=== PATIENT | male | born 1950 | race Caucasian/White ===

== ENCOUNTER 2018-01-26 05:53 | Inpatient (IN) | payer MEDICARE, MEDICAID, SELFPAY ==
[2018-01-26] VITALS (13 sets, daily range): BP systolic 119–141; BP diastolic 82–104; PULSE 107–137; RESP 16–24; TEMP 36.3–37.2; O2SAT 94–97; BMI 31.7; BMI 31.8
--- NOTE | 2018-01-26 06:00 | EKG12_ITS ---
Test Reason : Blood Pressure : / mmHG Vent. Rate : 120 BPM Atrial Rate : 278 BPM P-R Int : 000 ms QRS Dur : 078 ms QT Int : 322 ms P-R-T Axes : 000 010 065 degrees QTc Int : 455 ms Atrial flutter with variable A-V block Abnormal ECG Confirmed by AURELIO MEJIA, ALBERTO ([id number]), editor continuity and script JENNIFER VOGT ([id number]) on 01/28/2018 2:54:03 PM Referred By: CELESTINA Confirmed By:ALBERTO CAREY MD
[2018-01-26] MEDS: 0.9% Normal Saline 1,000 ML 1000 ML IV ×2 (06:11)
[2018-01-26] MEDS: LORazepam 2 MG/ML Syringe IV (06:13)
[2018-01-26] MEDS: dilTIAZem 25 MG/5 ML Vial 10 MG IV BOLUS (06:16)
--- NOTE | 2018-01-26 06:25 | ED.VISSUMM ---
- ER Visit Summary Date of Service: 01/26/18 Chief Complaint: [] Alcoholism with detox request History of Present Illness: The patient is a 67 M [] is a chronic alcoholic. He has had multiple admissions for detox. He stated over the last 4 weeks she has been drinking 18 beers per day of a strong beer. He had 24 beers today. He feels shaky after he sleeps only for an hour or 2 and wakes up and drinks beer which helps calm his anxiousness and anxiety and shakes. This keeps him out of acute withdrawal. He has had frequent visits for similar. 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 He required intubation in October of last year. Patient states he would like to detox. He had mechanical fall yesterday and has been using Aleve for back soreness with good relief. This is not why he came today. Denies illegal drug use. Has history of atrial fibrillation and is supposed to be taking Cardizem. He is on no blood thinners. Physical Examination: Vital signs reviewed General: Appears weakened but able to transfer from wheelchair to caught. Head: Normocephalic atraumatic Eyes: Pupils equal round and reactive to light extraocular movements intact ENT: TMs clear no hemotympanum no trauma Neck: Nontender full range of motion Cardiovascular: Regular rate rhythm no murmurs normal S1-S2 Respiratory: No distress clear to auscultation bilaterally chest nontender Abdomen: Soft nontender nondistended normal bowel sounds no masses Back: Nontender no CVA tenderness Extremities: Nontender active range of motion ?4 extremities no trauma and positive shakiness of his hands Skin: Normal color no trauma Neuro alert oriented cranial nerves II through XII intact normal strength with shakiness Test Results: [] Emergency Department Course and Treatment: [] EKG shows atrial fibrillation at a rate of 120. Unchanged from prior. Patient given IV fluids Ativan and a dose of Cardizem. He has minor alcohol withdrawal and is requesting detox. He will be discussed with the hospitalist and likely admitted Treatment Plan: [] Disposition: [] Impression: [] Alcoholism with detox request Alcohol withdrawal Chronic atrial fibrillation with rapid ventricular response Lumbar back strain This note was generated with [employer] dictation software. It may contain incorrect words, spelling, and punctuation that were not noted in review of the chart prior to signing ED Disposition - Plan for ED Patient: Chief Complaint: ETOH Intox Referrals: Christian Us MD [Primary Care Provider] -
[2018-01-26 06:26] LABS: Absolute Lymphocyte Count 1.51 X10^3/ul (0.83-4.51); Absolute Neutrophil Count 5.5 X10^3/uL (2.0-7.7); Basophil# 0.04 X10^3/uL; Basophil% 0.4 % (0-1); Eosinophil# 0.07 X10^3/uL; Eosinophils% 0.8 % (0-5); Hemoglobin 14.9 g/dl (13.0-16.5); Lymphocyte # 1.51 X10^3/ul (4.0); Mean Corp Hgb Conc 34.7 g/gl (32-36); Mean Corpuscular Hgb 32.9 pg (27.0-32.0); Mean Corpuscular Volume 94.9 fL (80-94); Mean Platelet Vol. 10.4 fl (6.2-12.0); Monocyte# 1.72 X10^3/uL; Monocyte% 19.3 % (0-10); Neutrophil # 5.53 X10^3/uL (2.7-7.7); Neutrophil % 62.2 % (47-70); Platelet Count 186 K/mm3 (150-450); RBC Distribution Width CV 14.3 % (11.6-14.6); RBC Distribution Width SD 48.2 fl (35.1-43.9); Red Blood Count 4.53 M/mm3 (4.6-6.2); White Blood Count 8.9 K/mm3 (4.4-11.0)
[2018-01-26 06:29] LABS: Differential Indicated SCAN CRITERIA MET; POSITIVE COUNT NO; POSITIVE DIFFERENTIAL YES; POSITIVE MORPHOLOGY NO
[2018-01-26 06:31] LABS: AST(SGOT) 152 U/L (15-37); Alanine Aminotransfer ALT/SGPT 178 U/L (16-61); Albumin, Serum 3.7 g/dL (3.2-5.0); Alkaline Phosphatase 124 U/L (45-117); Anion Gap 15 (5-15); BUN 10 mg/dL (7-18); BUN/Creat Ratio 11.9 RATIO (10-20); Bilirubin, Direct 0.43 mg/dL (0.00-0.30); Calcium,Total 8.9 mg/dL (8.5-10.1); Chloride 99 mmol/L (98-107); Creatinine, Serum 0.84 mg/dL (0.70-1.30); EST Glomerular Filtration Rate 97 mL/min (>60); Est Glom Filt Rate - Afr Amer 117 mL/min (>60); Estimated Creatinine Clearance 84.17 ml/min; Globulin 4.6 g/dL (2.2-4.2); Glucose 92 mg/dL (74-106); Potassium 3.8 mmol/L (3.5-5.1); Protein, Total 8.3 g/dL (6.4-8.2); Sodium Level 134 mmol/L (136-145)
--- NOTE | 2018-01-26 07:04 | NURSING ---
DR OMALLEY FOR DR OSCAR
--- NOTE | 2018-01-26 07:13 | NURSING ---
DR OMALLEY IN ER
--- NOTE | 2018-01-26 07:32 | NURSING ---
208 ALCOHOL WITHDRAWAL JOHANA
--- NOTE | 2018-01-26 07:38 | PCM.HP.STD ---
Problem List (1) Alcohol withdrawal Status: Acute Qualifiers: Complication of substance-induced condition: uncomplicated Qualified Code(s): F10.230 - Alcohol dependence with withdrawal, uncomplicated History of Present Illness Date of Admission: 01/26/18 Chief Complaint: Alcohol withdrawal The patient is a 67 year old M is seen in the emergency room at [facility] with a chief complaint of alcohol withdrawal. Last time patient had anything to drink was approximately 4 AM this morning. Patient drinks approximately 1824 ounce iced beers per day. Patient has been hospitalized many times for alcohol detox and hepatic encephalopathy. Patient complains today of feeling jittery, having tremors, and having sweats. Patient also complains of muscle discomfort and lower back pain. Workup in the emergency room included labs that showed a normal white blood cell count, patient's liver enzymes were all elevated his AST is 152, his ALT was 178, his alkaline phosphatase was 124. Patient's ethanol level was 99. Patient was noted be in atrial fib which is a chronic rhythm for him, pulse rate was 116, blood pressure was 119/82. Patient will be admitted into the stabilization program at [facility], orders were entered using the templates, blood pressure medication may have to be adjusted due to his atrial fibrillation. Patient will be monitored on telemetry, I do not feel he needs IV at this time Past Medical History Past Medical History (Chronic Problems): Chronic Problems Atrial fibrillation, chronic (Chronic) Atrial flutter, paroxysmal (Chronic) Depression with anxiety (Chronic) Panic disorder (Chronic) HTN (hypertension) (Chronic) Chronic alcoholism (Chronic) Cardiomyopathy (Chronic) Global hypokinesis with a 40-45% ejection fraction Left atrial enlargement (Chronic) Overweight (Chronic) Allergies No Known Allergies Allergy (Verified 01/26/18 05:57) Home Medications: Ambulatory Orders Medication Instructions Recorded Folic Acid 1 mg PO DAILY@0800 #30 tab 04/07/17 Aspirin [Lo-Dose Aspirin EC] 81 mg PO DAILY 10/19/17 Diltiazem [Cardizem] 120 mg PO BID 01/26/18 Furosemide [Lasix] 20 mg PO DAILY 01/26/18 Lisinopril [Zestril] 10 mg PO DAILY 01/26/18 Tamsulosin HCl [Flomax] 0.4 mg PO DAILY@1730 01/26/18 Surgical History: cholecystectomy Psychiatric History: Anxiety, Depression Lives: Alone Smoking Status: Never smoker Tobacco Use: Non-smoker Alcohol: Heavy Drugs: None - *Family History Maternal History Items: Stroke Paternal History Items: Cancer - lung Review of Systems Constitutional: Denies: Anorexia, Chills, Fever, Night Sweats, Malaise, Weakness, Weight Change, Fatigue Eyes: Denies: Blurred vision, Cataracts, Conjunctivae Inflammation, Double vision, Drainage HEENT: Denies: Difficulty Hearing, Difficulty Swallowing, Dysphasia, Ear Pain, Eye Pain, Head Aches, Hearing Changes, Nasal bleeding, Nasal Congestion, Post Nasal Drip Cardiovascular: Denies: Chest Pain, Claudication, Chest Pressure, Chest Tightness, Edema, Heaviness, Orthopnea, Palpitations, Paroxysmal Noc. Dyspnea Respiratory: Denies: Cough, Hemoptysis, Pleuritic Pain, Shortness of Breath, Shortness of breath at rest, Shortness of breath upon exertion, Sputum production, Wheezing Gastrointestinal: Denies: Abdominal Pain, Constipation, Diarrhea, Hematemesis, Hematochezia, Nausea, Melena, Vomiting Genitourinary: Denies: Dysuria, Frequency, Hematuria, Hesitancy, Urgency Musculoskeletal: Reports: Back Pain. Denies: Foot Pain, Hand Pain, Joint Pain, Joint stiffness, Joint swelling, Joint Tenderness, Leg Pain, Neck Pain, Shoulder Pain Skin: Denies: Dryness, Jaundice, Pruritis, Rash Neurological: Denies: Balance problems, Blurred vision, Double vision, Slurred speech, Difficulty swallowing, Focal weakness, Numbness, Tingling Psychiatric: Reports: Anxiety. Denies: Depression, Homicidal Ideations, Suicidal Ideations Endocrine: Denies: Change in Body Habitus, Heat/ Cold Intolerance, Polydipsia, Polyuria Hematologic/ Lymphatic: Denies: Adenopathy, Anemia, Easy Bruising, Easy Bleeding, Petechiae, Purpura VTE Information - Inpt Only VTE Present on Admission: No VTE Mechan Device Prophylaxis: None VTE Pharm Prophylaxis ordered?: Yes - Physical Exam General: Alert, Oriented x3, Cooperative, No apparent distress, Well developed, - - anxious HEENT: Atraumatic, PERRLA, EOMI, Normocephalic Oral: Moist Mucosa Neck: Supple, No JVD, Negative Carotid Bruits, No Nuchal Rigidity, Trachea Midline, Thyroid Normal Size and Texture Lungs: Clear to auscultation, Normal air movement, No rhonchi, No wheeze, No rales Cardiovascular: Regular Rhythm, No murmurs, PMI Normal, Irregular Rate, No rub noted Abdomen: Bowel Sounds Present, Soft, Non Tender, Non-Distended, Obese, No hernias noted Extremities: No clubbing, No cyanosis, No edema, Capillary Refill Less than 3 Seconds Skin: No rashes, No breakdown Musculoskeletal: No Tenderness to Palpation of Joints or Extremities Neurological: Cranial nerves II-XII grossly intact, Neuro grossly intact, Muscle tone normal, Sensory exam intact to light touch and pain, Coordination normal Psych/Mental Status: Appropriate, Anxious, Restless Vital Signs Temp Pulse Resp BP Pulse Ox 97.4 F L 116 H 24 H 119/82 H 96 01/26/18 05:54 01/26/18 06:19 01/26/18 06:19 01/26/18 06:19 01/26/18 06:19 Assessment/Plan #1 acute alcohol withdrawal-patient will be admitted into the medical stabilization program on [facility], due to his atrial fibrillation, patient will be monitored on telemetry, I do not feel he needs IV fluids #2 chronic alcoholism #3 chronic atrial fibrillation- patient's Cardizem will be changed to Cardizem CD 300 one daily for rate control #4 hypertension #5 Alcoholic hepatitis-liver functions will be rechecked tomorrow #6 cardiomyopathy probably secondary to rate dependent cardiomyopathy-patient has a past history of cardiomyopathy, echocardiogram in April 2017 showed an EF of 40-45%. Code Visit Inpatient E&M: 37660 Init Hosp L3
[2018-01-26 08:48] LABS: Prothrombin Time (Protime)PT. 13.1 SECONDS (11.7-14.9)
[2018-01-26] MEDS: Methocarbamol 750 MG Tablet PO ×2 (09:12→20:07)
[2018-01-26] MEDS: Metoprolol Tartrate 25 MG Tablet PO ×2 (09:12→22:48)
[2018-01-26] MEDS: chlordiazePOXIDE 25 MG Capsule PO ×3 (09:13→20:07)
[2018-01-26] MEDS: Ibuprofen 600 MG Tablet PO ×2 (09:13→20:06)
[2018-01-26] MEDS: Folic Acid 1 MG Tablet PO (09:13)
[2018-01-26] MEDS: Lisinopril 10 MG Tablet PO (09:13)
[2018-01-26] MEDS: Multivitamins,Ther W-Minerals Tablet 1 TABLET PO (10:01)
[2018-01-26] MEDS: Thiamine Hydrochloride 100 MG Tablet PO (10:01)
[2018-01-26] MEDS: dilTIAZem CD 300 MG Capsule PO (10:02)
[2018-01-26] MEDS: Furosemide 20 MG Tablet PO (10:03)
[2018-01-26] MEDS: LORazepam 1 MG Tablet 2 MG PO ×5 (10:03→18:55)
[2018-01-26 12:33] LABS: Amphetamine Urine VISTA NEGATIVE (<1000 ng/mL); Barbiturate Urine VISTA NEGATIVE (< 200 ng/mL); Benzodiazepine Urine VISTA NEGATIVE (< 200 ng/mL); Cocaine Urine VISTA NEGATIVE (< 300 ng/mL); Ecstacy Urine VISTA NEGATIVE (< 500 ng/mL); Methadone Urine VISTA NEGATIVE (< 300 ng/mL); PCP Urine VISTA NEGATIVE (< 25 ng/mL); THC Urine VISTA NEGATIVE (< 50 ng/mL); Vista UDS pH Range 5
--- NOTE | 2018-01-26 15:20 | CHAPLAIN ---
Type of Pastoral Visit _x__ Initial Visit ___ Follow-up Visit ___ On-call Visit ___ General Patient Visit ___ Spiritual Assessment ___ Family Conference ___ Bereavement ___ Rapid Response ___ Code Blue ___ Other (describe below) Pastoral Care Referral From _x__ Patient ___ Family ___ Nurse ___ Physician ___ Footwear Sales Representative ___ Regional Transportation Manager ___ Other (describe below) Sacrament/Intervention _x__ Active listening ___ Anointing ___ Hoahaoism ___ Bereavement ___ Communion ___ Yaneth exploration ___ _x__ Life review ___ Prayer ___ Reconciliation ___ Sacrament of Sick _x__ Supportive presence ___ Wedding ___ Other (describe below) Pastoral Comments patient declares that he wants to be sober again; pt says that he has had history of 40 years with alcoholism but has had long and significant years of sobriety and purposeful work; pt said his greatest source of staying sober was his former ; pt is now single and has lost contact with some of his social support; pt says he is not a yarsani person and does not seek spiritual help at this time; pt expressed thanks for presence of strap stitcher and time to talk
--- NOTE | 2018-01-26 16:32 | CCHN_ITS ---
Hospitalist Note This afternoon I was notified by nursing the patient has refused any efforts to enroll in outpatient follow-up for his alcohol problem. Patient was given several options by the [facility] coordinator and he refused all help. I asked the patient what he expected out of this hospitalization-he stated he wanted to stay here for a couple of days and that he would not drink when he went home. I told him I did not believe that he was telling me the truth and I continued to emphasize that he must follow-up with an outpatient alcohol detox program. This went on deaf ears as he refused to agree to this. My plan is to assure that he is out of danger as far as DTs are concerned and he will be discharged home. Patient has not seen his family physician in almost a year, I do not believe the patient is sincere on his wish to stop drinking.
[2018-01-26] MEDS: Tamsulosin HCl 0.4 MG Capsule PO (18:55)
[2018-01-27] VITALS (13 sets, daily range): BP systolic 106–129; BP diastolic 65–94; PULSE 100–141; RESP 16–18; TEMP 36.6–37.1; O2SAT 93–97
[2018-01-27] MEDS: chlordiazePOXIDE 25 MG Capsule PO ×3 (02:12→17:59)
[2018-01-27] MEDS: Methocarbamol 750 MG Tablet PO ×2 (02:20→17:59)
[2018-01-27 06:40] LABS: ALB/GLOB Ratio 0.7 RATIO (0.9-2.4); AST(SGOT) 62 U/L (15-37); Alanine Aminotransfer ALT/SGPT 108 U/L (16-61); Albumin, Serum 2.8 g/dL (3.2-5.0); Alkaline Phosphatase 96 U/L (45-117); Anion Gap 9 (5-15); BUN 15 mg/dL (7-18); BUN/Creat Ratio 23.1 RATIO (10-20); Calcium,Total 8.6 mg/dL (8.5-10.1); Chloride 103 mmol/L (98-107); Creatinine, Serum 0.65 mg/dL (0.70-1.30); EST Glomerular Filtration Rate 130 mL/min (>60); Est Glom Filt Rate - Afr Amer 157 mL/min (>60); Glucose 92 mg/dL (74-106); Potassium 3.5 mmol/L (3.5-5.1); Protein, Total 6.8 g/dL (6.4-8.2); Sodium Level 138 mmol/L (136-145)
[2018-01-27] MEDS: Folic Acid 1 MG Tablet PO (08:27)
[2018-01-27] MEDS: Aspirin E.C. 81 MG Tablet PO (08:27)
[2018-01-27] MEDS: Multivitamins,Ther W-Minerals Tablet 1 TABLET PO (08:27)
[2018-01-27] MEDS: Thiamine Hydrochloride 100 MG Tablet PO (08:29)
[2018-01-27] MEDS: Ibuprofen 600 MG Tablet PO (08:38)
[2018-01-27] MEDS: LORazepam 1 MG Tablet 2 MG PO ×2 (08:39→15:02)
[2018-01-27] MEDS: Lisinopril 10 MG Tablet PO (10:33)
[2018-01-27] MEDS: Furosemide 20 MG Tablet PO (10:33)
[2018-01-27] MEDS: Metoprolol Tartrate 50 MG Tablet PO ×2 (10:37→21:09)
[2018-01-27] MEDS: dilTIAZem CD 300 MG Capsule PO (10:38)
[2018-01-27] MEDS: Tamsulosin HCl 0.4 MG Capsule PO (17:55)
--- NOTE | 2018-01-27 19:26 | PCM.PROGNOTE ---
Subjective: Patient seen and examined today, he voices no complaints of anxiety or tremors, he has been walking in the [place] and he does not appear to be confused, he does not appear to be going through severe alcohol withdrawal at this time. Liver enzymes have trended downward - Physical Exam General: Alert, Oriented x3, Cooperative, No apparent distress, Well developed, Well nourished HEENT: Atraumatic, PERRLA, EOMI, Normocephalic Oral: Moist Mucosa Neck: Supple, No JVD, Negative Carotid Bruits Lungs: Clear to auscultation, Normal air movement, No rhonchi, No wheeze, No rales Cardiovascular: No murmurs, PMI Normal, Irregular Rate, No rub noted Abdomen: Bowel Sounds Present, Soft, Non Tender, Non-Distended, Obese Extremities: No clubbing, No cyanosis, No edema, Capillary Refill Less than 3 Seconds Skin: No rashes, No breakdown Musculoskeletal: No Tenderness to Palpation of Joints or Extremities Neurological: Cranial nerves II-XII grossly intact, Neuro grossly intact, Sensory exam intact to light touch and pain, Coordination normal Psych/Mental Status: Normal Affect, Appropriate, Alert and oriented to time, place, person, mood and affect Vital Signs Temp Pulse Resp BP Pulse Ox 98.6 F 104 H 16 120/81 H 96 01/27/18 15:00 01/27/18 15:04 01/27/18 15:00 01/27/18 15:00 01/27/18 15:00 Oxygen Delivery Method Room Air Weight: 97.5 kg Body Mass Index (BMI) 31.8 Intake and Output for Last 24 Hours 01/25/18 01/26/18 01/27/18 23:59 23:59 23:59 Intake Total 200 / 200 Balance 200 / 200 Laboratory Tests Past 24 Hrs 01/27/18 06:00 Sodium 138 Potassium 3.5 Chloride 103 Carbon Dioxide 26.0 Anion Gap 9 BUN 15 Creatinine 0.65 L Estim Creat Clear Calc 70.70 Est GFR (MDRD) Af Amer 157 Est GFR (MDRD) Non-Af 130 BUN/Creatinine Ratio 23.1 H Glucose 92 Calcium 8.6 Total Bilirubin 0.80 AST 62 H ALT 108 H Alkaline Phosphatase 96 Total Protein 6.8 Albumin 2.8 L Globulin 4.0 Albumin/Globulin Ratio 0.7 L Medical Necessity - Tobacco Use Smoking Status: Former smoker Tobacco Use: Non-smoker Assessment/Plan #1 acute alcohol withdrawal-patient appears to have minimal signs and symptoms of alcohol withdrawal, after my discussion with him yesterday, I am not quite sure why he even came into the hospital, it is apparent that he does not want to quit drinking. I will reassess him in the morning, if he has minimal signs of alcohol withdrawal or no signs of alcohol withdrawal, I will discharge him to home #2 chronic alcoholism #3 chronic atrial fibrillation-patient's metoprolol was increased today to 50 mg twice daily, he remains on Cardizem CD #4 hypertension #5 Alcoholic hepatitis-liver functions are improved today #6 cardiomyopathy probably secondary to rate dependent cardiomyopathy-patient has a past history of cardiomyopathy, echocardiogram in April 2017 showed an EF of 40-45%. Code Visit Inpatient E&M: 14666 Subs Hosp L2
[2018-01-28] MEDS: Ibuprofen 600 MG Tablet PO (05:31)
[2018-01-28 08:08] VITALS: BP 109/79; PULSE 88; RESP 18; TEMP 36.3; O2SAT 95
[2018-01-28 08:14] VITALS: PULSE 88
[2018-01-28] MEDS: Metoprolol Tartrate 50 MG Tablet PO (08:14)
[2018-01-28] MEDS: Folic Acid 1 MG Tablet PO (08:14)
[2018-01-28] MEDS: Aspirin E.C. 81 MG Tablet PO (08:15)
[2018-01-28] MEDS: Multivitamins,Ther W-Minerals Tablet 1 TABLET PO (08:15)
[2018-01-28] MEDS: Lisinopril 10 MG Tablet PO (08:15)
[2018-01-28] MEDS: dilTIAZem CD 300 MG Capsule PO (08:16)
[2018-01-28] MEDS: Thiamine Hydrochloride 100 MG Tablet PO (08:16)
[2018-01-28] MEDS: Furosemide 20 MG Tablet PO (08:16)
--- NOTE | 2018-01-28 10:55 | PCM.DC ---
You will use the following diet at home:: No restrictions Your food should be the consistency of: Regular Your liquids should be the consistency of: Regular/Thin Discharge Activity: Return to Normal Activity Weight Bearing Status: Full weight bearing Allergies/Adverse Reactions: Allergies No Known Allergies Allergy (Verified 01/26/18 05:57) Medications to take at Discharge Folic Acid 1 mg PO DAILY@0800 #30 tab 04/07/17 Aspirin [Lo-Dose Aspirin EC] 81 mg PO DAILY 10/19/17 Diltiazem CD [Cardizem CD] 300 mg PO DAILY #30 cap 01/28/18 Lisinopril [Zestril] 10 mg PO DAILY #30 tab 01/28/18 Metoprolol Tartrate [Lopressor (beta asndra)] 50 mg PO BID #60 tab 01/28/18 Tamsulosin HCl [Flomax] 0.4 mg PO DAILY@1730 #30 cap 01/28/18 The following prescriptions were given: Diltiazem CD [Cardizem CD] 300 mg PO DAILY #30 cap Lisinopril [Zestril] 10 mg PO DAILY #30 tab Tamsulosin HCl [Flomax] 0.4 mg PO DAILY@1730 #30 cap Metoprolol Tartrate [Lopressor (beta sandra)] 50 mg PO BID #60 tab Primary Care Physician: Christian sU MD [Primary Care Provider] - Please follow up with your Primary Care Physician in: in 2 weeks
[2018-01-28] MEDS: chlordiazePOXIDE 25 MG Capsule PO (11:08)
--- NOTE | 2018-01-30 20:33 | PCM.DC.SUM ---
Discharge Date and Diagnosis Date of Admission: 01/26/18 Date of Discharge: 01/28/18 - Primary Discharge Diagnosis #1 acute alcohol withdrawal #2 alcoholism #3 chronic atrial fibrillation #4 alcoholic hepatitis #5 hypertension #6 noncompliance with medical regimen #7 self-neglect - Secondary Discharge Diagnosis Chronic Problems Atrial fibrillation, chronic (Chronic) Atrial flutter, paroxysmal (Chronic) Depression with anxiety (Chronic) Panic disorder (Chronic) HTN (hypertension) (Chronic) Chronic alcoholism (Chronic) Cardiomyopathy (Chronic) Global hypokinesis with a 40-45% ejection fraction Left atrial enlargement (Chronic) Overweight (Chronic) Hospital Course and Treatment Operations: None Procedures: None Summary of Care Provided: The patient is a 67 year old M seen in the emergency room at [facility] with chief complaint of alcohol withdrawal and the desire to undergo alcohol detox at the hospital. Cup in the emergency room included an EKG which showed atrial fibrillation with a rate of 120, patient was given IV fluids and Ativan and an IV dose of Cardizem. Patient's ethyl alcohol level was 99, liver enzymes were diffusely elevated, and the patient was admitted to [place] [address] and seen in consultation with the medical stabilization program intake person. After talking with the patient, intake person for the medical stabilization program was told by the patient that he had no desire to follow-up with outpatient alcohol treatment programs, I spent some time talking with the patient about this as did the intake person from the medical stabilization program with patient did not change his mind. I felt the patient was not genuine and his desire to quit drinking, his blood pressure medication was adjusted during his hospitalization and his rate control medications for his atrial fib was adjusted during his hospitalization. In talking with the patient's PCP, patient had not been seen in his office for almost a year and had been taking prescriptions that were old and his PCP had no record of the medications he was on. On 01/28/18, patient was seen and examined felt in stable condition for discharge home. During the patient's hospital stay, he had minimal symptoms of alcohol withdrawal. Discharge Activity: Return to Normal Activity Weight Bearing Status: Full weight bearing Home Medications: Medications to take at Discharge Folic Acid 1 mg PO DAILY@0800 #30 tab 04/07/17 Aspirin [Lo-Dose Aspirin EC] 81 mg PO DAILY 10/19/17 Diltiazem CD [Cardizem CD] 300 mg PO DAILY #30 cap 01/28/18 Lisinopril [Zestril] 10 mg PO DAILY #30 tab 01/28/18 Metoprolol Tartrate [Lopressor (beta sandra)] 50 mg PO BID #60 tab 01/28/18 Tamsulosin HCl [Flomax] 0.4 mg PO DAILY@1730 #30 cap 01/28/18 Following Prescrptions Were Given to Patient: Diltiazem CD [Cardizem CD] 300 mg PO DAILY #30 cap Lisinopril [Zestril] 10 mg PO DAILY #30 tab Tamsulosin HCl [Flomax] 0.4 mg PO DAILY@1730 #30 cap Metoprolol Tartrate [Lopressor (beta sandra)] 50 mg PO BID #60 tab Primary Care Physician: Christian Us MD [Primary Care Provider] - Please follow up with your Primary Care Physician in: in 2 weeks Please Follow Up With: Christian Us MD Disposition: Home Minutes spent on discharge:: 32 Patient Condition:: Stable Medical Necessity - Tobacco Use Smoking Status: Former smoker Tobacco Use: Non-smoker Meaningful Use Info Meaningful Use Diagnoses (Choose all that apply): None applicable Code Visit Inpatient E&M: 58747 Disch Hosp
--- NOTE | 2018-01-30 20:38 | DS.PCM_ITS ---
Discharge Date and Diagnosis Date of Admission: 01/26/18 Date of Discharge: 01/28/18 - Primary Discharge Diagnosis #1 acute alcohol withdrawal #2 alcoholism #3 chronic atrial fibrillation #4 alcoholic hepatitis #5 hypertension #6 noncompliance with medical regimen #7 self-neglect - Secondary Discharge Diagnosis Chronic Problems Atrial fibrillation, chronic (Chronic) Atrial flutter, paroxysmal (Chronic) Depression with anxiety (Chronic) Panic disorder (Chronic) HTN (hypertension) (Chronic) Chronic alcoholism (Chronic) Cardiomyopathy (Chronic) Global hypokinesis with a 40-45% ejection fraction Left atrial enlargement (Chronic) Overweight (Chronic) Hospital Course and Treatment Operations: None Procedures: None Summary of Care Provided: The patient is a 67 year old M seen in the emergency room at [facility] with chief complaint of alcohol withdrawal and the desire to undergo alcohol detox at the hospital. Cup in the emergency room included an EKG which showed atrial fibrillation with a rate of 120, patient was given IV fluids and Ativan and an IV dose of Cardizem. Patient's ethyl alcohol level was 99, liver enzymes were diffusely elevated, and the patient was admitted to [place] [address] and seen in consultation with the medical stabilization program intake person. After talking with the patient, intake person for the medical stabilization program was told by the patient that he had no desire to follow-up with outpatient alcohol treatment programs, I spent some time talking with the patient about this as did the intake person from the medical stabilization program with patient did not change his mind. I felt the patient was not genuine and his desire to quit drinking, his blood pressure medication was adjusted during his hospitalization and his rate control medications for his atrial fib was adjusted during his hospitalization. In talking with the patient 's PCP, patient had not been seen in his office for almost a year and had been taking prescriptions that were old and his PCP had no record of the medications he was on. On 01/28/18, patient was seen and examined felt in stable condition for discharge home. During the patient's hospital stay, he had minimal symptoms of alcohol withdrawal. Discharge Activity: Return to Normal Activity Weight Bearing Status: Full weight bearing Home Medications: Medications to take at Discharge Folic Acid 1 mg PO DAILY@0800 #30 tab 04/07/17 Aspirin [Lo-Dose Aspirin EC] 81 mg PO DAILY 10/19/17 Diltiazem CD [Cardizem CD] 300 mg PO DAILY #30 cap 01/28/18 Lisinopril [Zestril] 10 mg PO DAILY #30 tab 01/28/18 Metoprolol Tartrate [Lopressor (beta sandra)] 50 mg PO BID #60 tab 01/28/18 Tamsulosin HCl [Flomax] 0.4 mg PO DAILY@1730 #30 cap 01/28/18 Following Prescrptions Were Given to Patient: Diltiazem CD [Cardizem CD] 300 mg PO DAILY #30 cap Lisinopril [Zestril] 10 mg PO DAILY #30 tab Tamsulosin HCl [Flomax] 0.4 mg PO DAILY@1730 #30 cap Metoprolol Tartrate [Lopressor (beta sandra)] 50 mg PO BID #60 tab Primary Care Physician: Christian Us MD [Primary Care Provider] - Please follow up with your Primary Care Physician in: in 2 weeks Please Follow Up With: Christian Us MD Disposition: Home Minutes spent on discharge:: 32 Patient Condition:: Stable Medical Necessity - Tobacco Use Smoking Status: Former smoker Tobacco Use: Non-smoker Meaningful Use Info Meaningful Use Diagnoses (Choose all that apply): None applicable Code Visit Inpatient E&M: 21511 Disch Hosp
== END 2018-01-28 12:07 | disposition home or self-care (01) | DRG 897 ==
LOC: ED 06:34 → MS2 07:46
PROVIDERS: Admitting Provider Internal Medicine; Emergency Provider Emergency Medicine; Family Provider Family Medicine; PCP Family Medicine; Visit Provider Internal Medicine
DX: F10.230 Alcohol dependence with withdrawal, uncomplicated (principal); I42.9 Cardiomyopathy, unspecified; I48.2 Chronic atrial fibrillation; I48.92 Unspecified atrial flutter; K70.10 Alcoholic hepatitis without ascites; Z79.899 Other long term (current) drug therapy; Z79.82 Long term (current) use of aspirin; K70.30 Alcoholic cirrhosis of liver without ascites; F41.8 Other specified anxiety disorders; F43.10 Post-traumatic stress disorder, unspecified; I10 Essential (primary) hypertension; E66.3 Overweight; Z68.31 Body mass index [BMI] 31.0-31.9, adult; Z91.14 Patient's other noncompliance with medication regimen
CPT/HCPCS: 36415; 80048; 80053; 80076; 80307; 80320; 85025; 85610; 93005; 97116; 97162; 97165; 97802; 99285; J7030; A4216; G0480

== ENCOUNTER → 2018-03-04 14:39 | Outpatient (CLI) | payer MEDICARE, MEDICAID, SELFPAY ==
--- NOTE | 2018-03-04 14:47 | RAD_ITS ---
STUDY: X-RAY - LUMBAR SPINE REASON FOR EXAM: Male, 67 years old. Lower back pain. TECHNIQUE: 5 view(s) of the lumbar spine were obtained. COMPARISON: None FINDINGS: Normal lumbar lordosis. The minimal levoscoliosis with convexity at L1. There is anterolisthesis of L5 on S1. The alignment is otherwise preserved. There is a compression deformity of the L1 vertebral body with a 60% loss of vertebral axial. There is slight anterior wedging of T12. Remainder of the vertebral axial heights are maintained. There is disc space narrowing and endplate spondylosis at multiple levels. Question L5 pars defects. The soft tissue structures are unremarkable. RAD/L/S Spine Min 4 Views IMPRESSION: 1. Age indeterminate compression deformities of T12 and L1. 2. Degenerative changes lumbar spine. 3. Anterolisthesis at L5-S1 with questionable pars defects. Electronically Signed: Nando Bridges DO at 15:36 EDT Tel [phone], Service support ,
== END ==
PROVIDERS: Family Provider Family Medicine; PCP Family Medicine; Visit Provider Family Medicine
DX: S39.012A Strain of muscle, fascia and tendon of lower back, initial encounter (principal)
CPT/HCPCS: 72110

== ENCOUNTER → 2018-03-24 07:10 | Outpatient (CLI) | payer MEDICARE, MEDICAID, SELFPAY ==
--- NOTE | 2018-03-24 07:14 | MRI_ITS ---
STUDY: MRI LUMBAR SPINE WITHOUT CONTRAST REASON FOR EXAM: Male, 67 years old. Back pain and buttock pain after fall. TECHNIQUE: Standardized fat and water weighted pulse sequences were obtained in the sagittal and axial planes. COMPARISON: Radiographs of the lumbar spine dated March 04, 2018. FINDINGS: T12-L1: There is mild compression of the T11 and T12 vertebral bodies. This appears to be old. Appears to be an acute severe compression fracture of L1 with maximum amount compression of about 90% of the central portion of this vertebral body. There is mild annular disk bulge and osteophyte complex. There is mild degenerative arthropathy of the facet joints. Bilateral neuroforamina are narrowed without MR evidence for nerve impingement. There is no significant central canal stenosis. There is straightening of the normal lumbar lordosis. There is no substantial scoliosis. Normal conus medullaris that terminates at the T12-L1 level. L1-2: There is increased height of the disc related to severe compression fracture of L1. There is mild annular disk bulge and osteophyte complex. There is mild degenerative arthropathy of the facet joints. Bilateral neuroforamina are narrowed without MR evidence for nerve impingement. There is no significant central canal stenosis. L2-3: There is mild annular disk bulge and osteophyte complex. There is mild degenerative arthropathy of the facet joints. Bilateral neuroforamina are narrowed without MR evidence for nerve impingement. There is mild central canal stenosis. L3-4: There is mild annular disk bulge and osteophyte complex. There is mild degenerative arthropathy of the facet joints. Bilateral neuroforamina are narrowed without MR evidence for nerve impingement. There is no significant central canal stenosis. L4-5: There is an annular disc bulge and osteophyte complex. There is abnormal signal within the superior endplate of L5 with associated with a Schmorl's node. This has appearance of acute Modic change and could be acutely symptomatic. There is moderate degenerative arthropathy of facet joints. There is mild central acquired canal stenosis. Neural foramina are bilaterally narrowed. L5-S1: There is mild anterolisthesis at this level. There is uncovering of the disc. There is moderate degenerative arthropathy of facet joints. There is mild central acquired canal stenosis. There is severe bilateral neural foraminal narrowing with probable impingement of the L5 nerve roots at the neural foramina. There may be spondylolysis of L5. Normal visualized sacral ala. Normal visualized paraspinous soft tissue structures. There is a small left-sided renal cyst measuring approximately 1.2 cm. MRI/Spine Lumbar (Routine) IMPRESSION: 1. Multiple compression fractures of the thoracic and lumbar spine. The compression fracture at L1 appears to be acute. 2. Grade 1 anterolisthesis at L5-S1. 3. Multilevel degenerative disc disease and degenerative arthropathy lumbar spine with acquired canal stenosis, neural foraminal narrowing and potential nerve impingement, as described. Electronically Signed: Dena Us MD at 10:06 EDT , Service support ,
== END ==
PROVIDERS: Family Provider Family Medicine; PCP Family Medicine; Visit Provider Family Medicine
DX: S32.000A Wedge compression fracture of unspecified lumbar vertebra, initial encounter for closed fracture (principal)
CPT/HCPCS: 72148

== ENCOUNTER → 2018-04-06 08:15 | Outpatient (CLI) | payer MEDICARE, MEDICAID, SELFPAY ==
--- NOTE | 2018-04-06 08:15 | DT_ITS ---
This patient was seen during an EMR downtime April 05, 2018 - April 12, 2018. This patient may have a combination of paper and electronic documentation or all paper documentation. All documentation is viewable within the e-chart portion of [email or web address] for each patient visit.
--- NOTE | 2018-04-08 08:36 | BD_ITS ---
STUDY: DUAL ENERGY X-RAY ABSORPTIOMETRY / DXA REASON FOR EXAM: Male, 67 years old. Smoking history. Recent lumbar compression fracture. TECHNIQUE: Bone Mineral Density (BMD) measurements of lumbar spine were obtained. COMPARISON: None. FINDINGS: Lumbar Spine (L1-L4): g/cm2 (1.088) / T-score (-1.3) / Z-score (0.8) Findings are suggestive of osteopenia with a moderate fracture risk. BD/Dexa Bone Density Study IMPRESSION: The patient is considered osteopenic as outlined below according to World Gabriel Organization (WHO) criteria with a moderate fracture risk. Reference Information: The T-score is the number of standard deviations above or below the standard which is normal for young adults at their peak bone mineral density. The World Health Organization (WHO) interprets the T-scores as follows: Above -1 Normal bone density Between -1 and -2.5 Osteopenia Equal to / or below -2.5 Osteoporosis As a practical clinical guideline, osteopenia may be graded as follows: Mild -1 through -1.5 Moderate -1.6 through -2.0 Severe -2.1 through -2.4 The Z-score is the number of standard deviations above or below age-matched controls. A Z-score of less than -1.5 would be considered abnormal. References: 1. NIH Osteoporosis and Related Bone Diseases http://www.osteo.org 2. International Society for Clinical Densitometry http://www.iscd.org 3. National Osteoporosis Foundation http://www.nof.org Electronically Signed: Nando Bridges DO at 10:58 EDT Tel [phone], Service support ,
== END ==
PROVIDERS: Family Provider Family Medicine; PCP Family Medicine; Visit Provider Family Medicine
DX: S32.000A Wedge compression fracture of unspecified lumbar vertebra, initial encounter for closed fracture (principal)
CPT/HCPCS: 77080

== ENCOUNTER → 2018-04-29 08:37 | Outpatient (CLI) | payer MEDICARE, MEDICAID, SELFPAY ==
[2018-04-29 09:56] LABS: Absolute Lymphocyte Count 1.23 X10^3/ul (0.83-4.51); Absolute Neutrophil Count 6.5 X10^3/uL (2.0-7.7); Basophil# 0.01 X10^3/uL; Basophil% 0.1 % (0-1); Eosinophil# 0.02 X10^3/uL; Eosinophils% 0.2 % (0-5); Hemoglobin 14.5 g/dl (13.0-16.5); Lymphocyte # 1.23 X10^3/ul (4.0); Lymphocyte % 14.6 % (19-41); Mean Corp Hgb Conc 34.5 g/gl (32-36); Mean Corpuscular Hgb 33.1 pg (27.0-32.0); Mean Corpuscular Volume 95.9 fL (80-94); Mean Platelet Vol. 11.2 fl (6.2-12.0); Monocyte# 0.69 X10^3/uL; Monocyte% 8.2 % (0-10); Neutrophil # 6.46 X10^3/uL (2.7-7.7); Neutrophil % 76.8 % (47-70); POSITIVE COUNT NO; POSITIVE DIFFERENTIAL NO; POSITIVE MORPHOLOGY NO; Platelet Count 269 K/mm3 (150-450); RBC Distribution Width CV 13.3 % (11.6-14.6); RBC Distribution Width SD 46.1 fl (35.1-43.9); Red Blood Count 4.38 M/mm3 (4.6-6.2); White Blood Count 8.4 K/mm3 (4.4-11.0)
[2018-04-29 11:00] LABS: ALB/GLOB Ratio 0.9 RATIO (0.9-2.4); AST(SGOT) 19 U/L (15-37); Alanine Aminotransfer ALT/SGPT 29 U/L (16-61); Albumin, Serum 3.8 g/dL (3.2-5.0); Alkaline Phosphatase 97 U/L (45-117); Anion Gap 9 (5-15); BUN 14 mg/dL (7-18); BUN/Creat Ratio 13.2 RATIO (10-20); Calcium,Total 8.7 mg/dL (8.5-10.1); Chloride 107 mmol/L (98-107); Creatinine, Serum 1.06 mg/dL (0.70-1.30); EST Glomerular Filtration Rate 74 mL/min (>60); Est Glom Filt Rate - Afr Amer 89 mL/min (>60); Globulin 4.2 g/dL (2.2-4.2); Glucose 112 mg/dL (74-106); Potassium 3.6 mmol/L (3.5-5.1); Sodium Level 140 mmol/L (136-145); Thyroid Stim Hormone (TSH) 1.55 uIU/mL (0.358-3.74)
== END ==
PROVIDERS: Family Provider Family Medicine; PCP Family Medicine; Visit Provider Family Medicine
DX: L29.9 Pruritus, unspecified (principal)
CPT/HCPCS: 36415; 80053; 84443; 85025

== ENCOUNTER → 2019-02-04 08:23 | Outpatient (CLI) | payer MEDICARE, SELFPAY ==
[2019-02-04 10:05] LABS: Absolute Lymphocyte Count 1.27 X10^3/ul (0.83-4.51); Absolute Neutrophil Count 4.2 X10^3/uL (2.0-7.7); Basophil# 0.02 X10^3/uL; Basophil% 0.3 % (0-1); Eosinophils% 1.7 % (0-5); Hemoglobin 13.9 g/dl (13.0-16.5); Lymphocyte # 1.27 X10^3/ul (4.0); Mean Corp Hgb Conc 34.8 g/gl (32-36); Mean Corpuscular Hgb 33.9 pg (27.0-32.0); Mean Corpuscular Volume 97.6 fL (80-94); Mean Platelet Vol. 11.1 fl (6.2-12.0); Monocyte# 0.49 X10^3/uL; Monocyte% 8.1 % (0-10); Neutrophil # 4.16 X10^3/uL (2.7-7.7); Neutrophil % 68.9 % (47-70); Platelet Count 221 K/mm3 (150-450); RBC Distribution Width CV 12.7 % (11.6-14.6); RBC Distribution Width SD 44.9 fl (35.1-43.9)
[2019-02-04 10:11] LABS: POSITIVE COUNT NO; POSITIVE DIFFERENTIAL NO; POSITIVE MORPHOLOGY NO
[2019-02-04 10:39] LABS: ALB/GLOB Ratio 1.1 RATIO (0.9-2.4); AST(SGOT) 20 U/L (15-37); Alanine Aminotransfer ALT/SGPT 20 U/L (16-61); Albumin, Serum 3.7 g/dL (3.2-5.0); Alkaline Phosphatase 70 U/L (45-117); Anion Gap 7 (5-15); BUN 15 mg/dL (7-18); BUN/Creat Ratio 15.8 RATIO (10-20); Calcium,Total 8.7 mg/dL (8.5-10.1); Chloride 106 mmol/L (98-107); Cholesterol 193 mg/dL (200); Creatinine, Serum 0.95 mg/dL (0.70-1.30); EST Glomerular Filtration Rate 83 mL/min (>60); Est Glom Filt Rate - Afr Amer 101 mL/min (>60); Globulin 3.3 g/dL (2.2-4.2); Glucose 90 mg/dL (74-106); High Density Lipoprotein 46 mg/dL; PSA,Total - Annual Screen 1.08 ng/mL (0.00-4.00); Potassium 4.2 mmol/L (3.5-5.1); Sodium Level 141 mmol/L (136-145); Triglycerides 132 mg/dL; Very Low Density Lipoprotein 26 mg/dL (5-40)
== END ==
PROVIDERS: Family Provider Family Medicine; PCP Family Medicine; Referring Provider Family Medicine; Visit Provider Family Medicine
DX: K70.9 Alcoholic liver disease, unspecified (principal); Z12.5 Encounter for screening for malignant neoplasm of prostate
CPT/HCPCS: 36415; 80053; 80061; 84153; 85025; G0103

== ENCOUNTER → 2019-02-09 09:20 | Outpatient (CLI) | payer MEDICARE, SELFPAY ==
--- NOTE | 2019-02-09 09:31 | RAD_ITS ---
STUDY: X-RAY - LUMBAR SPINE REASON FOR EXAM: Male, 68 years old. Chronic back pain TECHNIQUE: 2 view(s) of the lumbar spine were obtained. COMPARISON: 03/04/2018 FINDINGS: Normal lumbar lordosis. There is no substantial scoliosis. There is a normal alignment of the vertebrae. Stable mild anterior wedge compression deformity of the T11 and T12. Increased sclerosis at the compression injury of the L1 vertebral body. Mild loss of vertebral body height involving L3 in comparison to previous exam. There is multilevel endplate spondylosis of the thoracolumbar vertebrae. There is multi-level degenerative disc disease with multi-level disc space narrowing. Stable significant facet arthropathy L4-5, 5 S1, line through the posterior elements suggestive of spondylolysis, there is a grade 2 anterolisthesis L5 on S1. There is vacuum disc formation. The soft tissue structures are unremarkable. Stable sclerosis of the sacroiliac joints RAD/Lumbar Spine 2 or 3 Views IMPRESSION: Progression of degenerative changes with increase of sclerosis and facet arthropathy L5-S1. Mild loss of L3 vertebral body height in comparison to previous examination. Next Increased sclerosis at the L1 compression injury. Stable compression injury of T11 and T12. Electronically Signed: Jacklyn Pabon MD at 5:59 EDT , Service support ,
== END ==
PROVIDERS: Family Provider Family Medicine; PCP Family Medicine; Referring Provider Anesthesiology Pain Medicine; Visit Provider Anesthesiology Pain Medicine
DX: M54.9 Dorsalgia, unspecified (principal)
CPT/HCPCS: 72100

== ENCOUNTER → 2019-09-14 08:10 | Outpatient (CLI) | payer MEDICARE, SELFPAY ==
[2019-09-14 10:30] LABS: Absolute Lymphocyte Count 1.26 X10^3/uL (0.83-4.51); Basophil# 0.04 X10^3/uL; Basophil% 0.7 % (0-1); Eosinophil# 0.14 X10^3/uL; Eosinophils% 2.3 % (0-5); Hematocrit 44.1 % (40-54); Hemoglobin 14.8 g/dL (13.0-16.5); Lymphocyte # 1.26 X10^3/ul (4.0); Lymphocyte % 20.6 % (19-41); Mean Corp Hgb Conc 33.6 g/dL (32-36); Mean Corpuscular Hgb 34.1 pg (27.0-32.0); Mean Corpuscular Volume 101.6 fL (80-94); Mean Platelet Vol. 11.5 fl (6.2-12.0); Monocyte# 0.64 X10^3/uL; Monocyte% 10.5 % (0-10); NRBC Flagged by Analyzer 0 % (0-5); Neutrophil # 4.01 X10^3/uL (2.7-7.7); Neutrophil % 65.4 % (47-70); Platelet Count 182 K/mm3 (150-450); RBC Distribution Width CV 12.9 % (11.6-14.6); RBC Distribution Width SD 48.4 fl (35.1-43.9); Red Blood Count 4.34 M/mm3 (4.6-6.2); White Blood Count 6.1 K/mm3 (4.4-11.0)
[2019-09-14 10:58] LABS: ALB/GLOB Ratio 0.9 RATIO (0.9-2.4); AST(SGOT) 23 U/L (15-37); Alanine Aminotransfer ALT/SGPT 28 U/L (16-61); Albumin, Serum 3.7 g/dL (3.2-5.0); Alkaline Phosphatase 92 U/L (45-117); Anion Gap 8 (5-15); BUN 13 mg/dL (7-18); Chloride 104 mmol/L (98-107); EST Glomerular Filtration Rate 79 mL/min (>60); Est Glom Filt Rate - Afr Amer 95 mL/min (>60); Glucose 95 mg/dL (74-106); Magnesium 2.1 mg/dL (1.6-2.6); Potassium 3.9 mmol/L (3.5-5.1); Protein, Total 7.7 g/dL (6.4-8.2); Sodium Level 140 mmol/L (136-145); Thyroid Stim Hormone (TSH) 1.25 uIU/mL (0.358-3.74)
== END ==
LOC: MFPLAB 08:11
PROVIDERS: Family Provider Family Medicine; PCP Family Medicine; Referring Provider Family Medicine; Visit Provider Family Medicine
DX: I48.91 Unspecified atrial fibrillation (principal); E78.00 Pure hypercholesterolemia, unspecified
CPT/HCPCS: 36415; 80053; 83735; 84443; 85025

== ENCOUNTER → 2019-11-28 09:24 | Outpatient (CLI) | payer MEDICARE, MEDICAID, SELFPAY ==
--- NOTE | 2019-11-28 09:35 | RAD_ITS ---
STUDY: X-RAY - LUMBAR SPINE REASON FOR EXAM: Male, 69 years old. BACK PAIN OFF AND ON FOR SOME TIME. PAIN IN IN THE MIDDLE OF HIS LOWER BACK. TECHNIQUE: 3 view(s) of the lumbar spine were obtained. COMPARISON: Prior study of 02/09/2019 FINDINGS: Normal lumbar lordosis. There is no substantial scoliosis. There is a grade 1 anterolisthesis of L5 relative to S1 with bilateral L5 spondylolysis. There is diffuse endplate spondylosis. There are old compression deformities of T11, T12, L1, and L3.. There is multi-level degenerative disc disease with multi-level disc space narrowing. The soft tissue structures are unremarkable. RAD/Lumbar Spine 2 or 3 Views IMPRESSION: Old compression deformities of T11, T12, L1, and L3. Diffuse endplate spondylosis. Grade 1 anterolisthesis of L5 relative to S1 with bilateral L5 spondylolysis. Findings are stable in the interval. Electronically Signed: Alber Wright MD at 21:37 EST , Service support ,
== END ==
PROVIDERS: PCP Family Medicine; Referring Provider Anesthesiology Pain Medicine; Visit Provider Anesthesiology Pain Medicine
DX: M54.9 Dorsalgia, unspecified (principal); W19.XXXA Unspecified fall, initial encounter
CPT/HCPCS: 72100

== ENCOUNTER → 2020-08-01 08:02 | Outpatient (CLI) | payer MEDICARE, MEDICAID, SELFPAY ==
[2020-08-02 09:42] LABS: Absolute Lymphocyte Count 1.12 X10^3/uL (0.83-4.51); Absolute Neutrophil Count 4.7 X10^3/uL (2.0-7.7); Basophil# 0.05 X10^3/uL; Basophil% 0.7 % (0-1); Eosinophil# 0.11 X10^3/uL; Eosinophils% 1.6 % (0-5); Hematocrit 41.5 % (40-54); Hemoglobin 13.9 g/dL (13.0-16.5); Lymphocyte # 1.12 X10^3/ul (4.0); Lymphocyte % 16.5 % (19-41); Mean Corp Hgb Conc 33.5 g/dL (32-36); Mean Corpuscular Hgb 34.1 pg (27.0-32.0); Mean Corpuscular Volume 101.7 fL (80-94); Mean Platelet Vol. 11.3 fl (6.2-12.0); Monocyte% 11.8 % (0-10); NRBC Flagged by Analyzer 0 % (0-5); Neutrophil # 4.69 X10^3/uL (2.7-7.7); Neutrophil % 69.1 % (47-70); Platelet Count 234 K/mm3 (150-450); RBC Distribution Width CV 13.2 % (11.6-14.6); RBC Distribution Width SD 48.7 fl (35.1-43.9); Red Blood Count 4.08 M/mm3 (4.6-6.2); White Blood Count 6.8 K/mm3 (4.4-11.0)
[2020-08-02 10:10] LABS: ALB/GLOB Ratio 0.9 RATIO (0.9-2.4); AST(SGOT) 28 U/L (15-37); Alanine Aminotransfer ALT/SGPT 28 U/L (16-61); Albumin, Serum 3.6 g/dL (3.2-5.0); Alkaline Phosphatase 98 U/L (45-117); Anion Gap 4 (5-15); BUN 11 mg/dL (7-18); Chloride 105 mmol/L (98-107); Cholesterol 138 mg/dL (200); EST Glomerular Filtration Rate 78 mL/min (>60); Est Glom Filt Rate - Afr Amer 95 mL/min (>60); Glucose 94 mg/dL (74-106); High Density Lipoprotein 62 mg/dL; Magnesium 2.3 mg/dL (1.6-2.6); Potassium 3.9 mmol/L (3.5-5.1); Protein, Total 7.6 g/dL (6.4-8.2); Sodium Level 140 mmol/L (136-145); Thyroid Stim Hormone (TSH) 1.52 uIU/mL (0.358-3.74); Triglycerides 98 mg/dL; Very Low Density Lipoprotein 20 mg/dL (5-40)
== END ==
PROVIDERS: PCP Family Medicine; Referring Provider Family Medicine; Visit Provider Family Medicine
DX: I10 Essential (primary) hypertension (principal); E78.00 Pure hypercholesterolemia, unspecified
CPT/HCPCS: 36415; 80053; 80061; 83735; 84443; 85025

== ENCOUNTER → 2021-03-15 08:31 | Outpatient (CLI) | payer MEDICARE, MEDICAID, SELFPAY ==
[2021-03-15 10:31] LABS: Absolute Lymphocyte Count 1.19 X10^3/uL (0.83-4.51); Absolute Neutrophil Count 5.7 X10^3/uL (2.0-7.7); Basophil# 0.05 X10^3/uL; Basophil% 0.6 % (0-1); Eosinophil# 0.12 X10^3/uL; Eosinophils% 1.5 % (0-5); Hematocrit 44.9 % (40-54); Hemoglobin 14.8 g/dL (13.0-16.5); Lymphocyte # 1.19 X10^3/ul (0.83-4.51); Lymphocyte % 15.3 % (19-41); Mean Corpuscular Hgb 33.6 pg (27.0-32.0); Mean Platelet Vol. 11.4 fl (6.2-12.0); Monocyte# 0.74 X10^3/uL; Monocyte% 9.5 % (0-10); NRBC Flagged by Analyzer 0 % (0-5); Neutrophil # 5.65 X10^3/uL (2.7-7.7); Neutrophil % 72.6 % (47-70); Platelet Count 227 K/mm3 (150-450); RBC Distribution Width CV 13.5 % (11.6-14.6); RBC Distribution Width SD 50.8 fl (35.1-43.9); White Blood Count 7.8 K/mm3 (4.4-11.0)
[2021-03-15 11:13] LABS: ALB/GLOB Ratio 0.8 RATIO (0.9-2.4); AST(SGOT) 21 U/L (15-37); Alanine Aminotransfer ALT/SGPT 25 U/L (16-61); Albumin, Serum 3.4 g/dL (3.2-5.0); Alkaline Phosphatase 105 U/L (45-117); Anion Gap 5 (5-15); BUN 15 mg/dL (7-18); BUN/Creat Ratio 16.7 RATIO (10-20); Chloride 106 mmol/L (98-107); Cholesterol 112 mg/dL (200); EST Glomerular Filtration Rate 89 mL/min (>60); Est Glom Filt Rate - Afr Amer 107 mL/min (>60); Globulin 4.4 g/dL (2.2-4.2); Glucose 133 mg/dL (74-106); High Density Lipoprotein 53 mg/dL; Potassium 3.7 mmol/L (3.5-5.1); Protein, Total 7.8 g/dL (6.4-8.2); Sodium Level 140 mmol/L (136-145); Triglycerides 67 mg/dL; Very Low Density Lipoprotein 13 mg/dL (5-40)
== END ==
PROVIDERS: PCP Family Medicine; Referring Provider Family Medicine; Visit Provider Family Medicine
DX: I10 Essential (primary) hypertension (principal)
CPT/HCPCS: 36415; 80053; 80061; 85025

== ENCOUNTER → 2021-04-25 06:38 | Outpatient (CLI) | payer MEDICARE, MEDICAID, SELFPAY ==
--- NOTE | 2021-04-25 17:13 | STRESSREP ---
Stress Test Report Pharmacologic myocardial perfusion stress test. 70-year-old man with a history of atrial fibrillation. Stress protocol: Resting EKG demonstrates atrial fibrillation with a rate of 96 bpm. Resting blood pressure is 162/118 mmHg. 0.4 mg of regadenoson was infused per usual protocol followed by rapid intravenous saline flush injection continuous EKG monitoring was performed. The maximum heart rate attained was 111 bpm which was 74% of maximum predicted heart rate the maximum workload was 1 metabolic equivalent. At rest there were no ST or T wave changes noted to suggest ischemia and at peak infusion nonspecific ST changes were noted with did not meet the criteria for ischemia. No clinical angina was noted the test was terminated due to completion of the protocol. Myocardial perfusion protocol. 14.3 mCi of technetium 99m sestamibi was injected at rest. 0.4 mg of regadenoson was infused per usual protocol. At peak infusion 44.8 mCi of technetium 99m sestamibi was injected stress images were obtained stress and rest images were reconstructed and compared in the short axis vertical long and horizontal long axis. Gated images were also obtained. Perfusion SPECT analysis: Review of the stress images demonstrate normal uptake of tracer noted in all areas of the myocardium. The resting images similarly demonstrate normal uptake of tracer noted in all areas of the myocardium. No infarct is noted and no areas of reversibility are noted. Gated SPECT analysis: The gated ejection fraction is 57%. Conclusion: Normal pharmacologic myocardial perfusion stress test. Atrial fibrillation noted. Preserved ejection fraction.
== END ==
PROVIDERS: PCP Family Medicine; Referring Provider Family Medicine; Visit Provider Family Medicine
DX: R06.02 Shortness of breath (principal)
CPT/HCPCS: 78452; 93017; A9500; A4216; J2785

== ENCOUNTER 2021-12-18 09:20 | Outpatient (CLI) | payer MEDICARE, MEDICAID, SELFPAY ==
--- NOTE | 2021-12-18 09:33 | CDU_ITS ---
Reason For Study: RETINAL VEIN OCCL OF RT EYE Rt. Velocities/BP Lt. Velocities/BP Prox CCA 103.4/14.7 cm/sec. Prox CCA 50.7/1.8 cm/sec. Mid CCA 82.52/14.7 cm/sec. Mid CCA 70.7/17.9 cm/sec. Dist CCA 61.7/14.7 cm/sec. Dist CCA 65.2/16.8 cm/sec. Prox ICA 26.5/8.8 cm/sec. Prox ICA 45.4/15.7 cm/sec. Mid ICA 37.2/9.5 cm/sec. Mid ICA 75.0/26.7 cm/sec. Dist ICA 53.6/15.9 cm/sec. Dist ICA 76.1/26.7 cm/sec. Rt. ICA/CCA = .6. Lt. ICA/CCA = 1.2. Prox ECA 107.3/14.7 cm/sec. Prox ECA 102.5/19.0 cm/sec. Rt. Vert. 26.8/7.3 cm/sec. Lt. Vert. 55.2/16.8 cm/sec. Right Extracranial Artery is tortuous. There is homogeneous, smooth atherosclerotic plaque noted in the right common carotid artery. There is homogeneous, smooth atherosclerotic plaque noted in the right internal carotid artery. There is homogeneous, smooth atherosclerotic plaque noted in the right external carotid artery. The right external carotid artery is tortuous. Antegrade flow is noted in the right vertebral artery. There is heterogeneous, irregular atherosclerotic plaque noted in the right bulb. Left Extracranial There is homogeneous, smooth atherosclerotic plaque noted in the left common carotid artery. There is heterogeneous, irregular atherosclerotic plaque noted in the left internal carotid artery. There is heterogeneous, irregular atherosclerotic plaque noted in the left external carotid artery. Antegrade flow is noted in the left vertebral artery. There is heterogeneous, irregular atherosclerotic plaque noted in the left bulb. Procedure Carotid Duplex 69180. Technically difficult due to tortuosity and respiration interference. Exam performed in department. VL/Carotid Duplex Ultrasound Interpretation Summary Smooth plaque at the origin of the right internal carotid artery with less than 50% stenosis Less than 50% stenosis right external carotid artery Minimal heterogenous plaque at the proximal left internal carotid artery with l ess than 50% stenosis Less than 50% stenosis left external carotid artery Patent and antegrade vertebral arteries bilaterally Ordering Physician: Monty Lr Referring Physician: TIFFANY TREJO Performed By: Lluvia Payne, BILL, RVT
== END 2021-12-18 23:59 | disposition home or self-care (01) ==
LOC: CVS 09:27
PROVIDERS: PCP Family Medicine; Referring Provider Ophthalmology; Visit Provider Ophthalmology
DX: H34.8110 Central retinal vein occlusion, right eye, with macular edema (principal)
CPT/HCPCS: 93880

== ENCOUNTER → 2022-04-15 | Outpatient (CLI) | payer MEDICARE, MEDICAID, SELFPAY ==
--- NOTE | 2022-04-15 07:38 | ECHOCS_ITS ---
Reason For Study: RETINAL VEIN OCCLUSION Procedure This was a 2D Doppler, Color Flow transthoracic echocardiogram. The study was technically difficult. Contrast injection was performed. Exam performed in department. Left Ventricle Normal LV size. Left ventricular systolic function is normal. The estimated ejection fraction is 55 %. Unable to assess diastolic dysfunction. No regional wall motion abnormalities noted. Right Ventricle Normal RV size. Normal systolic function. Atria The left atrium is moderately enlarged. The right atrium is mildly enlarged. No doppler evidence for ASD. Bubble contrast study negative for right to left interatrial shunt. Mitral Valve There is mild mitral annular calcification. Extension of the mitral annular calcification onto the base of the posterior mitral valve leaflet. Mild-Moderate (1-2+) mitral valve insufficiency. Tricuspid Valve Normal tricuspid valve. Mild to moderate (1-2+) tricuspid valve insufficiency. Unable to estimate RV systolic pressure/pulmonary artery pressure due to technically difficult study. Aortic Valve Trisinus/trileaflet aortic valve. Normal aortic valve. Pulmonic Valve The pulmonic valve is not well visualized. Mild (1+) pulmonic valve insufficiency. Great Vessels The aortic root is not well visualized. Pericardium/Pleural No pericardial effusion. Medication 22 gauge I.V. with prn adaptor inserted into right arm. Diluted definity 2ml given slow IV push to enhance endocardial definition. Performed a rapid injection of agitated mix of 9 cc saline and 1cc air to assess for atrial septal defect. MMode/2D Measurements & Calculations LAV(MOD-bp): 98.2 ml SV(MOD-sp2): 54.3 ml LVAd ap2: 29.0 cm2 LAV(MOD-bp) Indexed: 43.3 ml/m2 LVLd ap2: 7.2 cm LAV(MOD-sp2): 98.6 ml EDV(MOD-sp2): 96.3 ml LAV(MOD-sp4): 84.8 ml EDV(sp2-el): 99.0 ml LVAs ap2: 17.3 cm2 LVLs ap2: 6.4 cm ESV(MOD-sp2): 42.0 ml ESV(sp2-el): 39.9 ml EF(MOD-sp2): 56.4 % LA A4 area: 28.2 cm2 RA A4 area: 23.2 cm2 Doppler Measurements & Calculations MV E max ju: 113.1 cm/sec Ao V2 max: 106.3 cm/sec LV V1 max: 66.8 cm/sec Ao max P.5 mmHg LV V1 max P.8 mmHg PA V2 max: 93.4 cm/sec ECHO/Echo Complete W/ Contrast Interpretation Summary The study was technically difficult. Contrast injection was performed. Left ventricular systolic function is normal. The estimated ejection fraction is 55 %. The left atrium is moderately enlarged. The right atrium is mildly enlarged. There is mild mitral annular calcification. Extension of the mitral annular calcification onto the base of the posterior mi tral valve leaflet. Mild-Moderate (1-2+) mitral valve insufficiency. Mild to moderate (1-2+) tricuspid valve insufficiency. Mild (1+) pulmonic valve insufficiency. Unable to estimate RV systolic pressure/pulmonary artery pressure due to techni alen difficult study. Unable to assess diastolic dysfunction. Ordering Physician: Monty Lr Referring Physician: Monty Lr Performed By: Denise Horton RCS
== END | disposition home or self-care (01) ==
PROVIDERS: Referring Provider Ophthalmology; Visit Provider Ophthalmology
DX: H34.8110 Central retinal vein occlusion, right eye, with macular edema (principal); G45.3 Amaurosis fugax
CPT/HCPCS: 93306; Q9957; A4216; C8929

== ENCOUNTER 2022-05-08 00:44 | Inpatient (IN) | payer MEDICARE, MEDICAID, SELFPAY ==
[2022-05-08] VITALS (13 sets, daily range): BP systolic 105–165; BP diastolic 72–116; PULSE 95–129; RESP 15–26; TEMP 36.3–37.4; O2SAT 95–99; BMI 36.1; BMI 35.9
--- NOTE | 2022-05-08 00:55 | EDS_ITS ---
HPI History of Present Illness Chief Complaint: ETOH Intox Narrative Narrative: Presents by EMS wanting alcohol detox. He has not had a drink in about 12 hours, feels like he is in withdrawal, shaky, he has been nauseated with intermittent vomiting for days, usually vomiting when he forces himself to vomit because he thinks it will make him feel better, and it sometimes does decrease his nausea, he has been vomiting some black stuff but it sounds like that is after he does Pepto-Bismol which helps his nausea, he has been drinking a lot of that. He denies any hematemesis or melena. He denies abdominal pain, just nausea. He has been drinking heavily since he was in his 20s. He denies any known history of cirrhosis. He is on aspirin and Eliquis and is not sure why he needs both but he does have a history of atrial fibrillation. He denies having history of a heart stent. No chest pain or shortness of breath or other symptoms. Last time he was in detox was a couple years ago. [facility] Medical History Alcohol withdrawal Alcoholic cardiomyopathy Atrial fibrillation, chronic Atrial flutter, paroxysmal Depression with anxiety History of acute alcoholic hepatitis History of alcoholism HTN (hypertension) Panic disorder Home Medications aspirin 81 mg tablet,delayed release 81 mg PO DAILY blood thinner 10/19/17 [History Last Taken 01/25/18] apixaban 5 mg tablet (Eliquis) 5 mg PO BID 10/03/19 [History Last Taken Unknown] metoprolol tartrate 100 mg tablet 100 mg PO BID 10/03/19 [History Last Taken Unknown] paroxetine HCl 20 mg tablet 20 mg PO DAILY 10/03/19 [History Last Taken Unknown] amlodipine 5 mg tablet 5 tab DAILY 05/08/22 [History Last Taken Unknown] atorvastatin 40 mg tablet 40 tab DAILY 05/08/22 [History Last Taken Unknown] duloxetine 60 mg capsule,delayed release 60 cap PO DAILY 05/08/22 [History Last Taken Unknown] Allergy/AdvReac Type Severity Reaction Status Date / Time No Known Allergies Allergy Verified 05/08/22 00:48 Family History Mother CVA (cerebral vascular accident) Father Cancer lung cancer Surgical History Hx of cholecystectomy Social History Smoking Status: Former smoker alcohol intake: former ROS ROS ED Constitutional Constitutional ED: Reports malaise; Denies chills or fever(s) Eyes Eyes: Denies change in vision or diplopia ENT ENT ED: Denies rhinorrhea or sore throat Cardiovascular Cardiovascular: Denies chest pain or palpitations Respiratory/Chest Respiratory/Chest: Denies cough or dyspnea Gastrointestinal Gastrointestinal: Reports nausea and vomiting; Denies abdominal pain or diarrhea Genitourinary Genitourinary ED: Denies dysuria or hematuria Musculoskeletal Musculoskeletal: Denies back pain or neck pain Integumentary Denies abscess or rash Neurologic Neurologic: Denies headache(s), paresthesias or weakness Psychiatric Psychiatric: Reports anxiety; Denies suicidal thoughts Hematologic/Lymphatic Hematologic/Lymphatic: Reports easy bleeding and easy bruising EXAM Physical Exam Const Vital Signs: 05/08/22 00:45 05/08/22 00:53 05/08/22 01:42 Temperature 98.5 F 98.3 F Temperature Source Oral Oral Pulse Rate 123 H 129 H 111 H Respiratory Rate 26 H 24 H 16 Blood Pressure 165/116 H 152/90 H Blood Pressure Mean 132 110 Pulse Ox 98 95 98 Oxygen Delivery Method Room Air Room Air Room Air Positive well nourished and well developed Constitutional Narrative: Tremulous, conversive, keenly alert, no distress General Appearance ED: well developed and NAD HEENT Reports moist mucous membranes normocephalic and atraumatic Eyes PERRL and EOMs intact bilaterally Neck full ROM and supple Resp normal respiratory effort and clear to auscultation bilaterally Cardio regular rate, regular rhythm and no murmurs Rate: tachycardic GI non-tender and non-distended Auscultation: normoactive bowel sounds Palpation: soft Back/Spine no CVA tenderness General Back: other FROM Extremity normal to inspection Extremity Narrative: Normal distal pulses x4 General Extremety ED: Yes edema; Negative for tenderness General Extremity: edema bilateral lower extremity Details: mild (Symmetric no signs of cellulitis or tenderness) Neuro oriented x3, CN's II-XII intact bilaterally and no sensory deficits noted Sensorium / Orientation: awake and alert Motor Exam: strength 5/5 throughout Skin no rashes or lesions noted and no wounds MDM MDM MDM Narrative Medical decision making narrative: Patient's work-up is inconsistent with any GI bleeding. Prior to the test returning, he was given Protonix 40 mg given the possibility of alcoholic gastritis with bleeding. His alcohol level is 0/negative, consistent with his withdrawal, he was given IV fluids, Zofran, Ativan initially and when his nausea was better we later gave him phenobarbital. His heart rate did come down. Discussed with hospitalist for admission and further care. At this time, he is not in DTs and I think he is stable for the floor and does not require ICU. Lab Data Attestation: I reviewed the patient's lab results. Labs: Laboratory Results - last 24 hr 05/08/22 05/08/22 05/08/22 00:55 00:55 00:55 WBC 10.0 RBC 4.45 L Hgb 16.0 Hct 45.3 MCV 101.8 H MCH 36.0 H MCHC 35.3 RDW Std Deviation 50.4 H RDW Coeff of Pati 13.5 Plt Count 243 MPV 9.9 Immature Gran % (Auto) 0.400 Neut % (Auto) 73.6 H Lymph % (Auto) 11.6 L Brooke % (Auto) 13.6 H Eos % (Auto) 0.4 Baso % (Auto) 0.4 Absolute Neuts (auto) 7.3 Absolute Lymphs (auto) 1.16 Nucleated RBC % 0 PT INR Sodium 140 Potassium 3.7 Chloride 104 Carbon Dioxide 26.0 Anion Gap 10 BUN 6 L Creatinine 1.08 Estim Creat Clear Calc 59.81 Est GFR (MDRD) Af Amer 86 Est GFR (MDRD) Non-Af 71 BUN/Creatinine Ratio 5.6 L Glucose 124 H Calcium 9.6 Total Bilirubin 1.00 AST 45 H ALT 41 Alkaline Phosphatase 105 Total Protein 8.4 H Albumin 4.0 Globulin 4.4 H Albumin/Globulin Ratio 0.9 Lipase 126 Ethyl Alcohol < 3.0 05/08/22 01:07 WBC RBC Hgb Hct MCV MCH MCHC RDW Std Deviation RDW Coeff of Pati Plt Count MPV Immature Gran % (Auto) Neut % (Auto) Lymph % (Auto) Brooke % (Auto) Eos % (Auto) Baso % (Auto) Absolute Neuts (auto) Absolute Lymphs (auto) Nucleated RBC % PT 14.4 INR 1.2 Sodium Potassium Chloride Carbon Dioxide Anion Gap BUN Creatinine Estim Creat Clear Calc Est GFR (MDRD) Af Amer Est GFR (MDRD) Non-Af BUN/Creatinine Ratio Glucose Calcium Total Bilirubin AST ALT Alkaline Phosphatase Total Protein Albumin Globulin Albumin/Globulin Ratio Lipase Ethyl Alcohol Discharge Plan Triage Chief Complaint: ETOH Intox ED Provider: Walker Montes Dx/Rx/DC Orders Clinical Impression: Alcohol withdrawal, Alcohol dependence, Acute alcoholic gastritis without hemorrhage Prescriptions: No Action paroxetine HCl 20 mg tablet 20 mg PO DAILY Eliquis 5 mg tablet 5 mg PO BID metoprolol tartrate 100 mg tablet 100 mg PO BID aspirin 81 MG tablet,delayed release (DR/EC) 81 mg PO DAILY duloxetine 60 mg capsule,delayed release(DR/EC) 60 cap PO DAILY atorvastatin 40 mg tablet 40 tab DAILY Label Comments: 1 tablet by mouth as directed amlodipine 5 mg tablet 5 tab DAILY Label Comments: TAKE 1 TABLET BY MOUTH ONCE DAILY Primary Care Provider: Graciela Ashley Referrals: Graciela Ashley, [Primary Care Provider] - Disposition Disposition: Acute Care Hospital [facility]
[2022-05-08 01:03] LABS: Absolute Lymphocyte Count 1.16 X10^3/uL (0.83-4.51); Absolute Neutrophil Count 7.3 X10^3/uL (2.0-7.7); Basophil# 0.04 X10^3/uL; Basophil% 0.4 % (0-1); Eosinophil# 0.04 X10^3/uL; Eosinophils% 0.4 % (0-5); Hematocrit 45.3 % (40-54); Lymphocyte # 1.16 X10^3/ul (0.83-4.51); Lymphocyte % 11.6 % (19-41); Mean Corp Hgb Conc 35.3 g/dL (32-36); Mean Corpuscular Volume 101.8 fL (80-94); Mean Platelet Vol. 9.9 fl (6.2-12.0); Monocyte# 1.35 X10^3/uL; Monocyte% 13.6 % (0-10); NRBC Flagged by Analyzer 0 % (0-5); Neutrophil # 7.33 X10^3/uL (2.7-7.7); Neutrophil % 73.6 % (47-70); Platelet Count 243 K/mm3 (150-450); RBC Distribution Width CV 13.5 % (11.6-14.6); RBC Distribution Width SD 50.4 fl (35.1-43.9); Red Blood Count 4.45 M/mm3 (4.6-6.2)
[2022-05-08] MEDS: 0.9% Normal Saline 1,000 ML 999 ML IV (01:04)
[2022-05-08] MEDS: LORazepam 2 MG/ML Syringe 1 MG IV (01:04)
[2022-05-08] MEDS: Ondansetron 4 MG/2 ML Vial IV (01:06)
[2022-05-08 01:22] LABS: International Normalized Ratio 1.2; Prothrombin Time (Protime)PT. 14.4 SECONDS (11.7-14.9)
[2022-05-08 01:24] LABS: ALB/GLOB Ratio 0.9 RATIO (0.9-2.4); AST(SGOT) 45 U/L (15-37); Alanine Aminotransfer ALT/SGPT 41 U/L (16-61); Alkaline Phosphatase 105 U/L (45-117); Anion Gap 10 (5-15); BUN 6 mg/dL (7-18); BUN/Creat Ratio 5.6 RATIO (10-20); Calcium,Total 9.6 mg/dL (8.5-10.1); Chloride 104 mmol/L (98-107); Creatinine, Serum 1.08 mg/dL (0.70-1.30); EST Glomerular Filtration Rate 71 mL/min (>60); Est Glom Filt Rate - Afr Amer 86 mL/min (>60); Estimated Creatinine Clearance 59.81 ml/min; Globulin 4.4 g/dL (2.2-4.2); Glucose 124 mg/dL (74-106); Lipase 126 U/L (73-393); Potassium 3.7 mmol/L (3.5-5.1); Protein, Total 8.4 g/dL (6.4-8.2); Sodium Level 140 mmol/L (136-145)
[2022-05-08 01:29] LABS: Alcohol, Blood (Medical)-Serum < 3.0 mg/dL
[2022-05-08] MEDS: Phenobarbital 32.4 MG Tablet 97.2 MG PO ×6 (02:11→21:08)
--- NOTE | 2022-05-08 02:19 | PCM.HP.STD ---
[facility] General General Date of Admission: 05/08/22 Date of Service: 05/08/22 Chief Complaint: Desire for detoxification HPI Narrative LANIE DELONG, is a 71 M with a significant history of alcoholic cardiomyopathy; chronic atrial fibrillation and paroxysmal atrial flutter on metoprolol and Eliquis; depression with anxiety; hypertension and alcoholism who presents to the emergency department for help with alcoholism. Reportedly he has been drinking about 6 to 8 of 24 ounces of Budweiser a day. Last time he drank was about 14 hours prior to presentation. He drank 6 of 24 ounces at a time. On a typical day he drinks about 15 to 24 ounces. He has been drinking since age 24 and he has been through multiple detoxification. He reports grinding his teeth. He has nausea. Because of nausea makes him uncomfortable he has been gagging himself to vomit. He reports black emesis that he attributes to drinking Pepto-Bismol. [facility] Medical History Alcohol withdrawal Alcoholic cardiomyopathy Atrial fibrillation, chronic Atrial flutter, paroxysmal Depression with anxiety History of acute alcoholic hepatitis History of alcoholism HTN (hypertension) Panic disorder Home Medications aspirin 81 mg tablet,delayed release 81 mg PO DAILY blood thinner 10/19/17 [History Last Taken 01/25/18] apixaban 5 mg tablet (Eliquis) 5 mg PO BID 10/03/19 [History Last Taken Unknown] metoprolol tartrate 100 mg tablet 100 mg PO BID 10/03/19 [History Last Taken Unknown] paroxetine HCl 20 mg tablet 20 mg PO DAILY 10/03/19 [History Last Taken Unknown] amlodipine 5 mg tablet 5 tab DAILY 05/08/22 [History Last Taken Unknown] atorvastatin 40 mg tablet 40 tab DAILY 05/08/22 [History Last Taken Unknown] duloxetine 60 mg capsule,delayed release 60 cap PO DAILY 05/08/22 [History Last Taken Unknown] Allergy/AdvReac Type Severity Reaction Status Date / Time No Known Allergies Allergy Verified 05/08/22 00:48 Family History Mother CVA (cerebral vascular accident) Father Cancer lung cancer Surgical History Hx of cholecystectomy Social History Smoking Status: Former smoker alcohol intake: former ROS ROS Narrative Pertinent positives and pertinent negatives as noted in HPI. All other systems were reviewed and are negative. Vital Signs Vital Signs Vital Signs: 05/08/22 00:45 05/08/22 00:53 05/08/22 01:42 Temperature 98.5 F 98.3 F Temperature Source Oral Oral Pulse Rate 123 H 129 H 111 H Respiratory Rate 26 H 24 H 16 Blood Pressure 165/116 H 152/90 H Blood Pressure Mean 132 110 Pulse Ox 98 95 98 Oxygen Delivery Method Room Air Room Air Room Air Weight Weight: 108 kg Body Mass Index (BMI) 36.1 Physical Exam Narrative Physical exam: General: Well-nourished, well-developed. Head: Normocephalic, atraumatic, no tenderness Eyes: Vision is grossly intact. EOMI ENT, no trauma, moist mucous membranes, no rhinorrhea Neck: Nontender, full range of motion. CVS: Tachycardia. S1-S2 present. No murmur, gallop or rub. Respiratory : clear to auscultation bilaterally, chest wall nontender, no wheezing Abdomen: Soft, nontender, nondistended, normal bowel sounds, no masses : Deferred Back: Nontender, no CVA tenderness, no midline spinal tenderness, deformities, step-offs Extremities: Nontender full range of motion, no trauma Skin: Normal color, no trauma, abrasions Neuro: Alert, oriented, cranial nerves II through XII grossly intact. Tremors Psychiatry: Normal mood. Normal affect. Not depressed. Not anxious. Results Lab / Micro Data Result Diagrams: 05/08/22 00:55 05/08/22 00:55 Labs: Laboratory Results - last 24 hr 05/08/22 00:55: WBC 10.0, RBC 4.45 L, Hgb 16.0, Hct 45.3, MCV 101.8 H, MCH 36.0 H, MCHC 35.3, RDW Std Deviation 50.4 H, RDW Coeff of Pati 13.5, Plt Count 243, MPV 9.9, Immature Gran % (Auto) 0.400, Neut % (Auto) 73.6 H, Lymph % (Auto) 11.6 L, [place] % (Auto) 13.6 H, Eos % (Auto) 0.4, Baso % (Auto) 0.4, Absolute Neuts (auto) 7.3, Absolute Lymphs (auto) 1.16, Nucleated RBC % 0 05/08/22 00:55: Sodium 140, Potassium 3.7, Chloride 104, Carbon Dioxide 26.0, Anion Gap 10, BUN 6 L, Creatinine 1.08, Estim Creat Clear Calc 59.81, Est GFR (MDRD) Af Amer 86, Est GFR (MDRD) Non-Af 71, BUN/Creatinine Ratio 5.6 L, Glucose 124 H, Calcium 9.6, Total Bilirubin 1.00, AST 45 H, ALT 41, Alkaline Phosphatase 105, Total Protein 8.4 H, Albumin 4.0, Globulin 4.4 H, Albumin/Globulin Ratio 0.9, Lipase 126 05/08/22 00:55: Ethyl Alcohol < 3.0 05/08/22 01:07: PT 14.4, INR 1.2 Assessment & Plan Assessment/Plan (1) Alcohol withdrawal: (2) Alcohol dependence: (3) Acute alcoholic gastritis without hemorrhage: PLAN: Plan Alcohol dependence and desire for detoxification Ethanol level on presentation was less than 3. Review of previous records shows that on 09/30/2017 ethanol level was 313 and 04/02/1970 ethanol level was 315. On presentation patient received Ativan IV and phenobarbital p.o. at the ED. Phenobarbital and other adjunctive medications: Gabapentin as needed; dicyclomine as needed; Vistaril as needed; Imodium as needed; trazodone as needed; Zofran as needed; scheduled thiamine; and schedule folic acid. Monitor CIWA score Acute alcoholic gastritis without hemorrhage Hgb on presentation was 16.0 which is actually better than previous. Trend. Gastric occult blood ordered. Hypertension Blood pressure is not within goal Metoprolol continued continued. Trend blood pressure and adjust blood pressure medications. DVT prophylaxis Low risk Encourage to ambulate Charges/Coding Visit Charges Inpatient E&M: 06640 Init Hosp L3
[2022-05-08 03:09] LABS: Amphetamine Urine VISTA NEGATIVE (<1000 ng/mL); Barbiturate Urine VISTA NEGATIVE (< 200 ng/mL); Benzodiazepine Urine VISTA NEGATIVE (< 200 ng/mL); Cocaine Urine VISTA NEGATIVE (< 300 ng/mL); Ecstacy Urine VISTA NEGATIVE (< 500 ng/mL); Methadone Urine VISTA NEGATIVE (< 300 ng/mL); PCP Urine VISTA NEGATIVE (< 25 ng/mL); THC Urine VISTA NEGATIVE (< 50 ng/mL); Vista UDS pH Range 5
[2022-05-08] MEDS: Gabapentin 300 MG Capsule PO (06:38)
[2022-05-08] MEDS: Metoprolol Tartrate 100 MG Tablet PO ×2 (08:03→21:09)
[2022-05-08] MEDS: Aspirin E.C. 81 MG Tablet PO (08:03)
[2022-05-08] MEDS: Thiamine Hydrochloride 100 MG Tablet PO (08:03)
[2022-05-08] MEDS: Folic Acid 1 MG Tablet PO (08:03)
[2022-05-08] MEDS: DULoxetine Hcl 60 MG Capsule PO (08:03)
[2022-05-08] MEDS: APIXABAN 5 MG TABLET PO ×2 (08:03→21:09)
[2022-05-08] MEDS: amLODIPine 5 MG Tablet PO (08:03)
[2022-05-08] MEDS: Paroxetine 20 MG Tablet PO (08:04)
[2022-05-08] MEDS: hydrOXYzine PAM 25 MG Capsule 50 MG PO ×2 (08:06→15:49)
[2022-05-08] MEDS: Dicyclomine 10 MG Capsule 20 MG PO (08:06)
--- NOTE | 2022-05-08 08:43 | CASEMGMT ---
Social Work Consult: [facility] Referral source: Self Referral Telephone call to Treatment Navigator, Akila. This mental health social worker updated Akila on patient admission to [facility]. Vera ESPINO, STACIE-S
[2022-05-08 10:19] LABS: Hematocrit 41.7 % (40-54); Hemoglobin 14.5 g/dL (13.0-16.5)
--- NOTE | 2022-05-08 11:21 | PN.HOSP_ITS ---
Documented by User: SANDY Arceo 05/08/22 11:31 Subjective Subjective Patient seen and examined. Patient sitting in chair no distress noted states that he ate a good breakfast this morning. Patient reports that he is tired however he states that he did not sleep for 3 days prior to coming to the ER. Objective Data Objective Data Vital Signs: Vital Signs Temp Pulse Resp BP Pulse Ox O2 Del Method 98.0 F 96 18 105/72 98 Room Air 05/08/22 08:00 05/08/22 08:03 05/08/22 08:00 05/08/22 08:00 05/08/22 08:00 05/08/22 08:00 Oxygen Delivery Method Room Air Weight: 236 lb 8.896 oz Body Mass Index (BMI) 35.9 Intake & Output: Intake and Output for Last 24 Hours 05/06/22 05/07/22 05/08/22 23:59 23:59 23:59 Intake Total 1220 / 1220 Balance 1220 / 1220 Lab / Micro Data Result Diagrams: 05/08/22 10:04 05/08/22 00:55 Labs: Laboratory Results - last 24 hr 05/08/22 00:55: WBC 10.0, RBC 4.45 L, Hgb 16.0, Hct 45.3, MCV 101.8 H, MCH 36.0 H, MCHC 35.3, RDW Std Deviation 50.4 H, RDW Coeff of Pati 13.5, Plt Count 243, MPV 9.9, Immature Gran % (Auto) 0.400, Neut % (Auto) 73.6 H, Lymph % (Auto) 11.6 L, [place] % (Auto) 13.6 H, Eos % (Auto) 0.4, Baso % (Auto) 0.4, Absolute Neuts (auto) 7.3, Absolute Lymphs (auto) 1.16, Nucleated RBC % 0 05/08/22 00:55: Sodium 140, Potassium 3.7, Chloride 104, Carbon Dioxide 26.0, Anion Gap 10, BUN 6 L, Creatinine 1.08, Estim Creat Clear Calc 59.81, Est GFR (MDRD) Af Amer 86, Est GFR (MDRD) Non-Af 71, BUN/Creatinine Ratio 5.6 L, Glucose 124 H, Calcium 9.6, Total Bilirubin 1.00, AST 45 H, ALT 41, Alkaline Phosphatase 105, Total Protein 8.4 H, Albumin 4.0, Globulin 4.4 H, Albumin/Globulin Ratio 0.9, Lipase 126 05/08/22 00:55: Ethyl Alcohol < 3.0 05/08/22 01:07: PT 14.4, INR 1.2 05/08/22 02:50: Urine Opiates Screen NEGATIVE, Urine Methadone Screen NEGATIVE, Ur Barbiturates Screen NEGATIVE, Ur Phencyclidine Scrn NEGATIVE, Ur Amphetamines Screen NEGATIVE, MDMA (Ecstasy) Screen NEGATIVE, U Benzodiazepines Scrn NEGATIVE, Urine Cocaine Screen NEGATIVE, U Cannabinoids Screen NEGATIVE, Ur Drug Screen Comment 05/08/22 10:04: Hgb 14.5, Hct 41.7 Physical Exam Const alert, oriented x3 and no apparent distress HEENT head/scalp atraumatic and moist oral mucous membranes Head and Scalp: normocephalic Eyes conjunctivae normal and no scleral icterus Neck supple Resp normal respiratory effort and clear to auscultation bilaterally Effort and Inspection: able to speak in complete sentences and symmetric chest movement Cardio regular rate, regular rhythm, S1 normal heart sound and S2 normal heart sound GI normal to inspection, nondistended, normoactive bowel sounds, soft to palpation and non-tender Extremity normal to inspection, full ROM and no clubbing, cyanosis or edema Neuro oriented x3, moves all extremities, no focal motor deficits and no sensory deficits noted Psych affect normal Assessment & Plan Assessment/Plan (1) Alcohol withdrawal: (2) Alcohol dependence: (3) Alcoholic cardiomyopathy: PLAN: Plan 1. Alcohol dependence and desire for detoxification -Continue phenobarbital per protocol, patient not currently exhibiting any signs or symptoms of withdrawal -Case management following 2. Acute alcoholic gastritis without hemorrhage -Gastric occult pending patient has not vomited -Hemoglobin 14.5 today, down from 16, no signs or symptoms of bleeding noted 3. Hypertension -Vital signs per protocol, currently stable -Continue metoprolol DVT prophylaxis-encourage ambulation This patient was seen by ANTONIO ArceoC under the supervision of Dr. Carl. 11 minutes spent in clinical coordination of patient's plan of care. Documented by User: Dr. Turner Carl DO 05/08/22 14:58 Objective Data Lab / Micro Data Result Diagrams: 05/08/22 10:04 05/08/22 00:55 Assessment & Plan Assessment/Plan (1) Alcohol withdrawal: (2) Alcohol dependence: (3) Alcoholic cardiomyopathy: PLAN: Plan 1. Alcohol dependence and desire for detoxification -Continue phenobarbital per protocol, patient not currently exhibiting any signs or symptoms of withdrawal -Case management following 2. Acute alcoholic gastritis without hemorrhage -Gastric occult pending patient has not vomited -Hemoglobin 14.5 today, down from 16, no signs or symptoms of bleeding noted 3. Hypertension -Vital signs per protocol, currently stable -Continue metoprolol DVT prophylaxis-encourage ambulation This patient was seen by Alexandra Gorman NP-C under the supervision of Dr. Carl. 11 minutes spent in clinical coordination of patient's plan of care. Patient seen and examined independently. Data and vitals reviewed. I agree with the above note by the nurse practitioner. Patient is up in a chair no acute distress. Normal affect. Assessment and plan 1. Acute alcohol withdrawal: Thus far patient's hospitalization has been uncomplicated. Currently on a phenobarbital as well as adjunctive agents to help with other somatic complaints. Seen by addiction medicine and and [facility]. 50 minutes reviewing data, documentation and discussing with the patient. Charges/Coding Visit Charges Inpatient E&M: 85397 Subs Hosp L2
--- NOTE | 2022-05-08 14:45 | ADDICTION ---
This ticket writer met with PT to conduct ASAM, MSE, AUDIT assessments and to plan for d/c. PT A+Ox4 and participated actively. All assessments completed, faxed to [facility] and placed in PT's chart. PT plans to f/u with individual counselor at [facility] for follow-up counseling services. PT did not indicate a need for transportation post d/c from [facility].
--- NOTE | 2022-05-08 19:47 | NURSING ---
Patient educated about detox and importance of taking medication to help prevent seizures. Patient states he doesn't want anymore meds. RN unable to assess orientation due to saying, I don't know will not open eyes and look at RN.
[2022-05-08] MEDS: Atorvastatin Calcium 40 MG Tablet PO (21:09)
[2022-05-09] MEDS: Phenobarbital 32.4 MG Tablet 97.2 MG PO ×2 (02:39→06:46)
[2022-05-09 03:00] VITALS: BP 156/107; PULSE 94; RESP 16; TEMP 36.6; O2SAT 96
[2022-05-09 05:44] LABS: Absolute Lymphocyte Count 0.73 X10^3/uL (0.83-4.51); Absolute Neutrophil Count 4.5 X10^3/uL (2.0-7.7); Basophil# 0.03 X10^3/uL; Basophil% 0.5 % (0-1); Eosinophil# 0.13 X10^3/uL; Eosinophils% 2.1 % (0-5); Hematocrit 41.7 % (40-54); Hemoglobin 13.5 g/dL (13.0-16.5); Lymphocyte # 0.73 X10^3/ul (0.83-4.51); Lymphocyte % 11.8 % (19-41); Mean Corp Hgb Conc 32.4 g/dL (32-36); Mean Corpuscular Hgb 35.8 pg (27.0-32.0); Mean Corpuscular Volume 110.6 fL (80-94); Monocyte% 12.9 % (0-10); NRBC Flagged by Analyzer 0 % (0-5); Neutrophil % 72.4 % (47-70); Platelet Count 145 K/mm3 (150-450); RBC Distribution Width CV 13.4 % (11.6-14.6); RBC Distribution Width SD 54.6 fl (35.1-43.9); Red Blood Count 3.77 M/mm3 (4.6-6.2); White Blood Count 6.2 K/mm3 (4.4-11.0)
[2022-05-09 06:43] LABS: ALB/GLOB Ratio 0.7 RATIO (0.9-2.4); AST(SGOT) 35 U/L (15-37); Alanine Aminotransfer ALT/SGPT 30 U/L (16-61); Albumin, Serum 2.7 g/dL (3.2-5.0); Alkaline Phosphatase 81 U/L (45-117); Anion Gap 8 (5-15); BUN 15 mg/dL (7-18); BUN/Creat Ratio 16.2 RATIO (10-20); Calcium,Total 8.2 mg/dL (8.5-10.1); Chloride 107 mmol/L (98-107); Creatinine, Serum 0.92 mg/dL (0.70-1.30); EST Glomerular Filtration Rate 85 mL/min (>60); Est Glom Filt Rate - Afr Amer 103 mL/min (>60); Estimated Creatinine Clearance 70.22 ml/min; Globulin 3.7 g/dL (2.2-4.2); Glucose 103 mg/dL (74-106); Potassium 3.6 mmol/L (3.5-5.1); Protein, Total 6.4 g/dL (6.4-8.2); Sodium Level 137 mmol/L (136-145)
[2022-05-09] MEDS: Thiamine Hydrochloride 100 MG Tablet PO (08:37)
[2022-05-09] MEDS: Folic Acid 1 MG Tablet PO (08:37)
[2022-05-09] MEDS: Aspirin E.C. 81 MG Tablet PO (08:37)
[2022-05-09] MEDS: Paroxetine 20 MG Tablet PO (08:38)
[2022-05-09] MEDS: APIXABAN 5 MG TABLET PO (08:38)
[2022-05-09] MEDS: DULoxetine Hcl 60 MG Capsule PO (08:38)
[2022-05-09] MEDS: amLODIPine 5 MG Tablet PO (08:38)
[2022-05-09 08:39] VITALS: BP 130/92; PULSE 88; RESP 18; TEMP 36.6; O2SAT 95
[2022-05-09 08:43] VITALS: BP 130/92; PULSE 88
[2022-05-09] MEDS: Metoprolol Tartrate 100 MG Tablet PO (08:43)
--- NOTE | 2022-05-09 09:01 | DCINST_ITS ---
Discharge Instructions Diet Discharge Diet: Low fat / Low cholesterol Activity Discharge Activity: Return to Normal Activity Dressing / Incision Call your doctor if you observe: Dizziness, Swelling in the ankles, Chest pain and Increased palpitations (irregular heartbeat) Follow Up Care Please Follow Up With: Graciela Ashley DO When: 2-4 weeks Test Results: Test results from this visit will be discussed in further detail at your follow- up appointment, if applicable. Discharge Plan Admission Admit Date/Time: 05/08/22 02:08 Primary Reason for Your Visit: Alcohol Detox Attending Provider: Turner Carl Primary Care Provider: Graciela Ashley Consulting Providers: Alex Gonzalez Discharge Orders/Prescriptions Prescriptions: Continued paroxetine HCl 20 mg tablet 20 mg PO DAILY Eliquis 5 mg tablet 5 mg PO BID metoprolol tartrate 100 mg tablet 100 mg PO BID aspirin 81 MG tablet,delayed release (DR/EC) 81 mg PO DAILY duloxetine 60 mg capsule,delayed release(DR/EC) 60 cap PO DAILY atorvastatin 40 mg tablet 40 tab DAILY Label Comments: 1 tablet by mouth as directed amlodipine 5 mg tablet 5 tab DAILY Label Comments: TAKE 1 TABLET BY MOUTH ONCE DAILY Referrals / Follow Up: Graciela Ashley DO [Primary Care Provider] - Disposition Disposition (needs filled in before D/C Order can be placed): Home, Self Care
--- NOTE | 2022-05-09 09:08 | DS.PCM_ITS ---
Documented by User: SANDY Arceo 05/09/22 09:14 Providers Date of Admission: 05/08/22 Date of Discharge: 05/09/22 Primary Care Physician: Graciela Ashley DO Reason For Visit: ALCOHOLISM, DESIRE FOR DETOXIFICATION Diagnosis Discharge Diagnosis (1) Alcohol withdrawal: Status: Acute Code(s): F10.939 - Alcohol use, unspecified with withdrawal, unspecified (2) Alcohol dependence: Status: Acute Code(s): F10.20 - Alcohol dependence, uncomplicated (3) Alcoholic cardiomyopathy: Status: Chronic Code(s): I42.6 - Alcoholic cardiomyopathy Plan 1. Alcohol dependence and desire for detoxification -Continue phenobarbital per protocol, patient not currently exhibiting any signs or symptoms of withdrawal -Case management following 2. Acute alcoholic gastritis without hemorrhage -Gastric occult pending patient has not vomited -Hemoglobin 14.5 today, down from 16, no signs or symptoms of bleeding noted 3. Hypertension -Vital signs per protocol, currently stable -Continue metoprolol DVT prophylaxis-encourage ambulation This patient was seen by SANDY Arceo under the supervision of Dr. Carl. 11 minutes spent in clinical coordination of patient's plan of care. Medications at Discharge Home Medications aspirin 81 mg tablet,delayed release 81 mg PO DAILY blood thinner 10/19/17 apixaban 5 mg tablet (Eliquis) 5 mg PO BID 10/03/19 metoprolol tartrate 100 mg tablet 100 mg PO BID 10/03/19 paroxetine HCl 20 mg tablet 20 mg PO DAILY 10/03/19 amlodipine 5 mg tablet 5 tab DAILY 05/08/22 atorvastatin 40 mg tablet 40 tab DAILY 05/08/22 duloxetine 60 mg capsule,delayed release 60 cap PO DAILY 05/08/22 Hospital Course Operations None Procedures None Summary of Care Provided Minutes Spent on Discharge: 35 Hospital Course: Patient is a 71-year-old male who originally presented to the ER for desire for detoxification from alcohol. Patient was admitted and subsequently treated with a phenobarbital taper per protocol. Patient has not experienced severe withdrawal symptoms throughout stay. Patient CIWA 4. Patient has plans to follow-up with 180 outpatient. Physical Exam Const alert, oriented x3 and no apparent distress HEENT head/scalp atraumatic and moist oral mucous membranes Eyes conjunctivae normal and no scleral icterus Neck supple Resp normal respiratory effort and clear to auscultation bilaterally Effort and Inspection: able to speak in complete sentences and symmetric chest movement Cardio regular rate, regular rhythm, S1 normal heart sound and S2 normal heart sound GI normal to inspection, nondistended, normoactive bowel sounds, soft to palpation and non-tender Extremity normal to inspection, full ROM and no clubbing, cyanosis or edema Neuro oriented x3, moves all extremities, no focal motor deficits and no sensory deficits noted Psych affect normal Weight / BMI Weight Weight: 236 lb 8.896 oz Body Mass Index (BMI) 35.9 ABG / Lab / Microbiology Data Result Diagrams: 05/09/22 05:30 05/09/22 05:30 Laboratory: Laboratory Results - last 24 hr 05/08/22 10:04: Hgb 14.5, Hct 41.7 05/09/22 05:30: WBC 6.2, RBC 3.77 L, Hgb 13.5, Hct 41.7, MCV 110.6 H D, MCH 35.8 H, MCHC 32.4 D, RDW Std Deviation 54.6 H, RDW Coeff of Pati 13.4, Plt Count 145 L, MPV 10.0, Immature Gran % (Auto) 0.300, Neut % (Auto) 72.4 H, Lymph % (Auto) 11.8 L, [place] % (Auto) 12.9 H, Eos % (Auto) 2.1, Baso % (Auto) 0.5, Absolute Ne uts (auto) 4.5, Absolute Lymphs (auto) 0.73 L, Nucleated RBC % 0 05/09/22 05:30: Sodium 137, Potassium 3.6, Chloride 107, Carbon Dioxide 22.0, Anion Gap 8, BUN 15, Creatinine 0.92, Estim Creat Clear Calc 70.22, Est GFR (MDRD) Af Amer 103, Est GFR (MDRD) Non-Af 85, BUN/Creatinine Ratio 16.2, Glucose 103, Calcium 8.2 L, Total Bilirubin 0.70, AST 35, ALT 30, Alkaline Phosphatase 81, Total Protein 6.4, Albumin 2.7 L, Globulin 3.7, Albumin/Globulin Ratio 0.7 L D/C Instructions Discharge Diet: Low fat / Low cholesterol Call your doctor if you observe: Dizziness, Swelling in the ankles, Chest pain and Increased palpitations (irregular heartbeat) Please Follow Up With: Graciela Ashley DO When: 2-4 weeks Meaningful Use Info Meaningful Use Diagnoses (Choose all that apply): None applicable Discharge Plan Admission Admit Date/Time: 05/08/22 02:08 Primary Reason for Your Visit: Alcohol Detox Attending Provider: Turner Carl Primary Care Provider: Graciela Ashley Consulting Providers: Alex Gonzalez Discharge Orders/Prescriptions Prescriptions: Continued paroxetine HCl 20 mg tablet 20 mg PO DAILY Eliquis 5 mg tablet 5 mg PO BID metoprolol tartrate 100 mg tablet 100 mg PO BID aspirin 81 MG tablet,delayed release (DR/EC) 81 mg PO DAILY duloxetine 60 mg capsule,delayed release(DR/EC) 60 cap PO DAILY atorvastatin 40 mg tablet 40 tab DAILY Label Comments: 1 tablet by mouth as directed amlodipine 5 mg tablet 5 tab DAILY Label Comments: TAKE 1 TABLET BY MOUTH ONCE DAILY Referrals / Follow Up: Graciela Ashley DO [Primary Care Provider] - Disposition Disposition (needs filled in before D/C Order can be placed): Home, Self Care Documented by User: Dr. Turner Carl DO 05/09/22 09:56 Providers Date of Admission: 05/08/22 Reason For Visit: ALCOHOLISM, DESIRE FOR DETOXIFICATION Diagnosis Discharge Diagnosis (1) Alcohol withdrawal: Status: Acute Code(s): F10.939 - Alcohol use, unspecified with withdrawal, unspecified (2) Alcohol dependence: Status: Acute Code(s): F10.20 - Alcohol dependence, uncomplicated (3) Alcoholic cardiomyopathy: Status: Chronic Code(s): I42.6 - Alcoholic cardiomyopathy Medications at Discharge Home Medications aspirin 81 mg tablet,delayed release 81 mg PO DAILY blood thinner 10/19/17 apixaban 5 mg tablet (Eliquis) 5 mg PO BID 10/03/19 metoprolol tartrate 100 mg tablet 100 mg PO BID 10/03/19 paroxetine HCl 20 mg tablet 20 mg PO DAILY 10/03/19 amlodipine 5 mg tablet 5 tab DAILY 05/08/22 atorvastatin 40 mg tablet 40 tab DAILY 05/08/22 duloxetine 60 mg capsule,delayed release 60 cap PO DAILY 05/08/22 Hospital Course Summary of Care Provided Hospital Course: Patient is a 71-year-old male who originally presented to the ER for desire for detoxification from alcohol. Patient was admitted and subsequently treated with a phenobarbital taper per protocol. Patient has not experienced severe withdrawal symptoms throughout stay. Patient CIWA 4. Patient has plans to follow-up with 180 outpatient. Patient seen and examined independently. Data and vitals reviewed. I agree with the above note by the nurse practitioner. 69-year-old male presents for desire to detox from alcohol. Patient had quit for 24 hours prior to arrival. Patient's course was uncomplicated. Patient was on phenobarbital but had declined some dosings. Given that he is otherwise stable and plan is for him to follow-up with 1 ED, it is appropriate for the patient to be discharged today. Patient is agreement to that. Physical Exam Const General Appearance: cooperative and well developed HEENT normocephalic and head/scalp atraumatic ABG / Lab / Microbiology Data Result Diagrams: 05/09/22 05:30 05/09/22 05:30 Discharge Plan Admission Admit Date/Time: 05/08/22 02:08 Primary Reason for Your Visit: Alcohol Detox Attending Provider: Turner Carl Primary Care Provider: Graciela Ashley Consulting Providers: Alex Gonzalez Discharge Orders/Prescriptions Prescriptions: Continued paroxetine HCl 20 mg tablet 20 mg PO DAILY Eliquis 5 mg tablet 5 mg PO BID metoprolol tartrate 100 mg tablet 100 mg PO BID aspirin 81 MG tablet,delayed release (DR/EC) 81 mg PO DAILY duloxetine 60 mg capsule,delayed release(DR/EC) 60 cap PO DAILY atorvastatin 40 mg tablet 40 tab DAILY Label Comments: 1 tablet by mouth as directed amlodipine 5 mg tablet 5 tab DAILY Label Comments: TAKE 1 TABLET BY MOUTH ONCE DAILY Referrals / Follow Up: Graciela Ashley DO [Primary Care Provider] - Disposition Disposition (needs filled in before D/C Order can be placed): Home, Self Care Charges/Coding Visit Charges Inpatient E&M: 12309 Disch Hosp
--- NOTE | 2022-05-09 09:58 | PHA.DC.MR ---
Pharmacy Service has performed discharge medication reconciliation for this patient. The patient's discharge medication list was reviewed for discrepancies and discrepancies were resolved. Home Medications aspirin 81 mg tablet,delayed release 81 mg PO DAILY blood thinner 10/19/17 apixaban 5 mg tablet (Eliquis) 5 mg PO BID 10/03/19 metoprolol tartrate 100 mg tablet 100 mg PO BID 10/03/19 paroxetine HCl 20 mg tablet 20 mg PO DAILY 10/03/19 amlodipine 5 mg tablet 5 tab DAILY 05/08/22 atorvastatin 40 mg tablet 40 tab DAILY 05/08/22 duloxetine 60 mg capsule,delayed release 60 cap PO DAILY 05/08/22
== END 2022-05-09 10:41 | disposition home or self-care (01) | DRG 897 ==
LOC: ED 02:23 → PCU 02:44
PROVIDERS: Nurse Practitioner Family; Admitting Provider Hospitalist; Emergency Provider Emergency Medicine; PCP Family Medicine
DX: F10.239 Alcohol dependence with withdrawal, unspecified (principal); I42.6 Alcoholic cardiomyopathy; I48.20 Chronic atrial fibrillation, unspecified; I48.92 Unspecified atrial flutter; I10 Essential (primary) hypertension; K29.20 Alcoholic gastritis without bleeding; F41.9 Anxiety disorder, unspecified; Z79.01 Long term (current) use of anticoagulants; Z79.82 Long term (current) use of aspirin; Z79.899 Other long term (current) drug therapy; Z87.891 Personal history of nicotine dependence; F32.A Depression, unspecified
CPT/HCPCS: 36415; 80053; 80307; 82077; 83690; 85014; 85018; 85025; 85610; 99285; J7030; A4216; J2405; J3490

== ENCOUNTER 2022-05-26 22:18 | Inpatient (IN) | payer MEDICARE, MEDICAID, SELFPAY ==
[2022-05-26 22:20] VITALS: BP 141/90; PULSE 103; RESP 18; TEMP 36.4; O2SAT 115; BMI 36.1
--- NOTE | 2022-05-26 22:33 | EDS_ITS ---
HPI History of Present Illness Chief Complaint: ETOH Intox Narrative Narrative: Patient presents via EMS with alcohol intoxication. He states he is unsure if he wants detox from alcohol. His last detox was here approximately 3 weeks ago. They suggested he go to rehab, and he went to a few meetings but states it never works. He denies any suicidal ideation. No other substance abuse. He states that he drinks at least 6 large Grandy Ices which is equivalent to 12 beers a day. His last drink was reportedly around 5:56 PM, almost 4 hours ago. He denies any chest pain or shortness of breath. No tremors or palpitations. He lives at home alone. He states he called EMS because he wanted help with his alcohol consumption again. [facility] Medical History Alcohol withdrawal Alcoholic cardiomyopathy Atrial fibrillation, chronic Atrial flutter, paroxysmal Depression with anxiety History of acute alcoholic hepatitis History of alcoholism HTN (hypertension) Panic disorder Home Medications aspirin 81 mg tablet,delayed release 81 mg PO DAILY blood thinner 10/19/17 [History Last Taken 01/25/18] apixaban 5 mg tablet (Eliquis) 5 mg PO BID 10/03/19 [History Last Taken Unknown] metoprolol tartrate 100 mg tablet 100 mg PO BID 10/03/19 [History Last Taken Unknown] paroxetine HCl 20 mg tablet 20 mg PO DAILY 10/03/19 [History Last Taken Unknown] amlodipine 5 mg tablet 5 tab DAILY 05/08/22 [History Last Taken Unknown] atorvastatin 40 mg tablet 40 tab DAILY 05/08/22 [History Last Taken Unknown] duloxetine 60 mg capsule,delayed release 60 cap PO DAILY 05/08/22 [History Last Taken Unknown] aripiprazole 5 mg tablet 5 mg PO DAILY 05/26/22 [History Last Taken Unknown] Allergy/AdvReac Type Severity Reaction Status Date / Time No Known Allergies Allergy Verified 05/26/22 22:22 Family History Mother CVA (cerebral vascular accident) Father Cancer lung cancer Surgical History Hx of cholecystectomy Social History Smoking Status: Former smoker alcohol intake: former ROS ROS ED ROS Narrative Constitutional: No fever, no chills. HEENT: No sore throat. No neck pain. No loss of vision. No rhinorrhea. Cardiovascular: No chest pain. No palpitations. No pedal edema. Respiratory: No cough, no shortness of breath. Abdominal: No abdominal pain. No nausea. No vomiting. Genitourinary: No dysuria. No hematuria. Musculoskeletal: No myalgias. No arthralgias. Neurologic: No headaches. No dizziness. No lightheadedness. No tremors. Skin: No rash. No change in color. Psychiatric: No depression. No anxiety. EXAM Physical Exam Narrative Exam Narrative: Afebrile. Vital signs noted. HEENT: Normocephalic. Atraumatic. PERRL, EOMI. Neck soft and supple. No point tenderness or step off. Cardiovascular: Regular rate and rhythm with intermittent tachycardia. No murmurs, rubs, or gallops appreciated. Respiratory: No tachypnea. Lungs clear to auscultation bilaterally. Gastrointestinal: Abdomen soft, nontender, with normoactive bowel sounds. No rebound or guarding. Neurological: Awake. Alert. Oriented x3. Nonfocal, nonlateralizing. No slurring of speech. Skin: No rash. Normal color. No pallor. Musculoskeletal: No pedal edema. Full range of motion extremities. Const Vital Signs: 05/26/22 22:20 05/27/22 01:23 Temperature 97.5 F L 97.5 F L Temperature Source Oral Oral Pulse Rate 103 H 103 H Respiratory Rate 18 18 Blood Pressure 141/90 H 141/90 H Blood Pressure Mean 107 Pulse Ox 115 115 Oxygen Delivery Method Room Air Room Air MDM MDM MDM Narrative Medical decision making narrative: Medical clearance labs will be obtained. EKG demonstrates sinus tachycardia without ectopy or acute ST changes. No STEMI. This was interpreted by myself. WBC count normal at 6.5 with hemoglobin stable at 15.4, platelet count 274. Electrolyte panel is grossly unremarkable except for glucose 112 with an anion gap of 6. AST and ALT are normal. Ethyl alcohol is negative at less than 3.0. I do feel that he may have stopped drinking prior than just a few hours ago. He states he started to feel shaky. He was administered Ativan 1 mg orally. Urine drug screen positive for barbiturates which she may have gotten during his last detoxification. At this point in time, as he is in mild alcohol withdrawal, I do not feel he needs ICU admission. He states he would like help with his alcohol dependence. Patient was discussed with Dr. Weeks for admission. He is in stable condition. Lab Data Attestation: I reviewed the patient's lab results. Labs: Laboratory Results - last 24 hr 05/26/22 05/26/22 05/26/22 23:03 23:33 23:33 WBC 6.5 RBC 4.24 L Hgb 15.4 Hct 44.1 MCV 104.0 H MCH 36.3 H MCHC 34.9 RDW Std Deviation 50.5 H RDW Coeff of Pati 13.3 Plt Count 274 MPV 10.3 Immature Gran % (Auto) 0.300 Neut % (Auto) 61.5 Lymph % (Auto) 21.8 [place] % (Auto) 13.3 H Eos % (Auto) 2.5 Baso % (Auto) 0.6 Absolute Neuts (auto) 4.0 Absolute Lymphs (auto) 1.41 Nucleated RBC % 0 Sodium 139 Potassium 4.4 Chloride 106 Carbon Dioxide 27.0 Anion Gap 6 BUN 13 Creatinine 1.22 Estim Creat Clear Calc 52.95 Est GFR (MDRD) Af Amer 75 Est GFR (MDRD) Non-Af 62 BUN/Creatinine Ratio 10.7 Glucose 112 H Calcium 9.3 Total Bilirubin 0.70 AST 33 ALT 31 Alkaline Phosphatase 99 Total Protein 7.9 Albumin 3.6 Globulin 4.3 H Albumin/Globulin Ratio 0.8 L Urine Opiates Screen Urine Methadone Screen Ur Barbiturates Screen Ur Phencyclidine Scrn Ur Amphetamines Screen MDMA (Ecstasy) Screen U Benzodiazepines Scrn Urine Cocaine Screen U Cannabinoids Screen Ur Drug Screen Comment Ethyl Alcohol < 3.0 05/27/22 00:35 WBC RBC Hgb Hct MCV MCH MCHC RDW Std Deviation RDW Coeff of Pati Plt Count MPV Immature Gran % (Auto) Neut % (Auto) Lymph % (Auto) [place] % (Auto) Eos % (Auto) Baso % (Auto) Absolute Neuts (auto) Absolute Lymphs (auto) Nucleated RBC % Sodium Potassium Chloride Carbon Dioxide Anion Gap BUN Creatinine Estim Creat Clear Calc Est GFR (MDRD) Af Amer Est GFR (MDRD) Non-Af BUN/Creatinine Ratio Glucose Calcium Total Bilirubin AST ALT Alkaline Phosphatase Total Protein Albumin Globulin Albumin/Globulin Ratio Urine Opiates Screen NEGATIVE Urine Methadone Screen NEGATIVE Ur Barbiturates Screen POSITIVE H Ur Phencyclidine Scrn NEGATIVE Ur Amphetamines Screen NEGATIVE MDMA (Ecstasy) Screen NEGATIVE U Benzodiazepines Scrn NEGATIVE Urine Cocaine Screen NEGATIVE U Cannabinoids Screen NEGATIVE Ur Drug Screen Comment Ethyl Alcohol Discharge Plan Dx/Rx/DC Orders Clinical Impression: Alcohol dependence, Alcohol withdrawal, Desire for detoxification Disposition Disposition: Acute Care Hospital [facility] Discharge Date/Time: 05/27/22 02:19
--- NOTE | 2022-05-26 22:33 | EKG12_ITS ---
Test Reason : DYSRHYTHMIA Blood Pressure : / mmHG Vent. Rate : 096 BPM Atrial Rate : 138 BPM P-R Int : 000 ms QRS Dur : 090 ms QT Int : 326 ms P-R-T Axes : 000 020 048 degrees QTc Int : 411 ms Atrial fibrillation Abnormal ECG Confirmed by JENNIFER MEJIA, DAVID ([id number]), book or script editor MELVI ALBA ([id number]) on 05/27/2022 11:43:23 AM Referred By: LUIS Confirmed By:DAVID RODRIGUEZ MD
[2022-05-26] MEDS: Ondansetron ODT 4 MG Tablet PO (23:20)
[2022-05-26 23:39] LABS: Absolute Lymphocyte Count 1.41 X10^3/uL (0.83-4.51); Basophil# 0.04 X10^3/uL; Basophil% 0.6 % (0-1); Eosinophil# 0.16 X10^3/uL; Eosinophils% 2.5 % (0-5); Hematocrit 44.1 % (40-54); Hemoglobin 15.4 g/dL (13.0-16.5); Lymphocyte # 1.41 X10^3/ul (0.83-4.51); Lymphocyte % 21.8 % (19-41); Mean Corp Hgb Conc 34.9 g/dL (32-36); Mean Corpuscular Hgb 36.3 pg (27.0-32.0); Mean Platelet Vol. 10.3 fl (6.2-12.0); Monocyte# 0.86 X10^3/uL; Monocyte% 13.3 % (0-10); NRBC Flagged by Analyzer 0 % (0-5); Neutrophil # 3.99 X10^3/uL (2.7-7.7); Neutrophil % 61.5 % (47-70); Platelet Count 274 K/mm3 (150-450); RBC Distribution Width CV 13.3 % (11.6-14.6); RBC Distribution Width SD 50.5 fl (35.1-43.9); Red Blood Count 4.24 M/mm3 (4.6-6.2); White Blood Count 6.5 K/mm3 (4.4-11.0)
[2022-05-27] VITALS (8 sets, daily range): BP systolic 115–141; BP diastolic 79–90; PULSE 84–105; RESP 16–18; TEMP 36.1–37.1; O2SAT 87–115; BMI 36.1
[2022-05-27 00:04] LABS: ALB/GLOB Ratio 0.8 RATIO (0.9-2.4); AST(SGOT) 33 U/L (15-37); Alanine Aminotransfer ALT/SGPT 31 U/L (16-61); Albumin, Serum 3.6 g/dL (3.2-5.0); Alkaline Phosphatase 99 U/L (45-117); Anion Gap 6 (5-15); BUN 13 mg/dL (7-18); BUN/Creat Ratio 10.7 RATIO (10-20); Calcium,Total 9.3 mg/dL (8.5-10.1); Chloride 106 mmol/L (98-107); Creatinine, Serum 1.22 mg/dL (0.70-1.30); EST Glomerular Filtration Rate 62 mL/min (>60); Est Glom Filt Rate - Afr Amer 75 mL/min (>60); Estimated Creatinine Clearance 52.95 ml/min; Globulin 4.3 g/dL (2.2-4.2); Glucose 112 mg/dL (74-106); Potassium 4.4 mmol/L (3.5-5.1); Protein, Total 7.9 g/dL (6.4-8.2); Sodium Level 139 mmol/L (136-145)
[2022-05-27 00:55] LABS: Alcohol, Blood (Medical)-Serum < 3.0 mg/dL
[2022-05-27 01:04] LABS: Amphetamine Urine VISTA NEGATIVE (<1000 ng/mL); Barbiturate Urine VISTA POSITIVE (< 200 ng/mL); Benzodiazepine Urine VISTA NEGATIVE (< 200 ng/mL); Cocaine Urine VISTA NEGATIVE (< 300 ng/mL); Ecstacy Urine VISTA NEGATIVE (< 500 ng/mL); Methadone Urine VISTA NEGATIVE (< 300 ng/mL); PCP Urine VISTA NEGATIVE (< 25 ng/mL); THC Urine VISTA NEGATIVE (< 50 ng/mL); Vista UDS pH Range 5
[2022-05-27] MEDS: LORazepam 1 MG Tablet PO (01:17)
--- NOTE | 2022-05-27 01:48 | HP.PCM_ITS ---
HPI - General General Date of Admission: 05/27/22 Date of Service: 05/27/22 Chief Complaint: etoh abuse HPI Narrative LANIE DELONG, is a 71 M who presents to the emergency room requesting alcohol detoxification. Patient failed outpatient follow-up therapy after going through withdrawal 3 weeks ago in our facility. Patient states his recent diagnosis of retinal occlusion has given him new insight and motivation to quit as he does not want to go blind. Patient denies chest pain shortness of breath fever chills nausea vomiting or diarrhea. Patient's alcohol level is negative at this time and he is showing signs of tremulousness and agitation. [facility] Medical History Alcohol withdrawal Alcoholic cardiomyopathy Atrial fibrillation, chronic Atrial flutter, paroxysmal Depression with anxiety History of acute alcoholic hepatitis History of alcoholism HTN (hypertension) Panic disorder Home Medications aspirin 81 mg tablet,delayed release 81 mg PO DAILY blood thinner 10/19/17 [Hi story Last Taken 01/25/18] apixaban 5 mg tablet (Eliquis) 5 mg PO BID 10/03/19 [History Last Taken Unknown] metoprolol tartrate 100 mg tablet 100 mg PO BID 10/03/19 [History Last Taken Unknown] paroxetine HCl 20 mg tablet 20 mg PO DAILY 10/03/19 [History Last Taken Unknown] amlodipine 5 mg tablet 5 tab DAILY 05/08/22 [History Last Taken Unknown] atorvastatin 40 mg tablet 40 tab DAILY 05/08/22 [History Last Taken Unknown] duloxetine 60 mg capsule,delayed release 60 cap PO DAILY 05/08/22 [History Last Taken Unknown] aripiprazole 5 mg tablet 5 mg PO DAILY 05/26/22 [History Last Taken Unknown] Allergy/AdvReac Type Severity Reaction Status Date / Time No Known Allergies Allergy Verified 05/26/22 22:22 Family History Mother CVA (cerebral vascular accident) Father Cancer lung cancer Surgical History Hx of cholecystectomy Social History Smoking Status: Former smoker alcohol intake: former ROS Constitutional Constitutional: Denies chills or fever(s) Eyes Eyes: Reports change in vision ENT HEENT: Denies abnormal hearing Cardiovascular Cardiovascular: Denies chest pain Respiratory/Chest Respiratory/Chest: Denies cough Gastrointestinal Gastrointestinal: Denies abdominal pain Musculoskeletal Musculoskeletal: Denies back pain Neurologic Neurologic: Reports tremor(s) Psychiatric Psychiatric: Reports anxiety Vital Signs Vital Signs Vital Signs: 05/26/22 22:20 05/27/22 01:23 Temperature 97.5 F L 97.5 F L Temperature Source Oral Oral Pulse Rate 103 H 103 H Respiratory Rate 18 18 Blood Pressure 141/90 H 141/90 H Blood Pressure Mean 107 Pulse Ox 115 115 Oxygen Delivery Method Room Air Room Air Weight Weight: 238 lb 1.588 oz Body Mass Index (BMI) 36.1 Physical Exam Const oriented x3 General Appearance: cooperative HEENT normocephalic and head/scalp atraumatic Eyes PERRL Resp normal respiratory effort Cardio Rate: tachycardic Extremity no clubbing, cyanosis or edema Skin General Skin Exam: no breakdown Neuro no focal motor deficits and no sensory deficits noted Psych cooperative Mood & Affect: depressed and anxious Thought Content: No suicidality Results Lab / Micro Data Result Diagrams: 05/26/22 23:33 05/26/22 23:33 Labs: Laboratory Results - last 24 hr 05/26/22 23:03: Ethyl Alcohol < 3.0 05/26/22 23:33: WBC 6.5, RBC 4.24 L, Hgb 15.4, Hct 44.1, MCV 104.0 H, MCH 36.3 H , MCHC 34.9, RDW Std Deviation 50.5 H, RDW Coeff of Pati 13.3, Plt Count 274, MPV 10.3, Immature Gran % (Auto) 0.300, Neut % (Auto) 61.5, Lymph % (Auto) 21.8, [place] % (Auto) 13.3 H, Eos % (Auto) 2.5, Baso % (Auto) 0.6, Absolute Neuts (auto) 4.0, Absolute Lymphs (auto) 1.41, Nucleated RBC % 0 05/26/22 23:33: Sodium 139, Potassium 4.4, Chloride 106, Carbon Dioxide 27.0, Anion Gap 6, BUN 13, Creatinine 1.22, Estim Creat Clear Calc 52.95, Est GFR (MDRD) Af Amer 75, Est GFR (MDRD) Non-Af 62, BUN/Creatinine Ratio 10.7, Glucose 112 H, Calcium 9.3, Total Bilirubin 0.70, AST 33, ALT 31, Alkaline Phosphatase 99, Total Protein 7.9, Albumin 3.6, Globulin 4.3 H, Albumin/Globulin Ratio 0.8 L 05/27/22 00:35: Urine Opiates Screen NEGATIVE, Urine Methadone Screen NEGATIVE, Ur Barbiturates Screen POSITIVE H, Ur Phencyclidine Scrn NEGATIVE, Ur Amphetamin es Screen NEGATIVE, MDMA (Ecstasy) Screen NEGATIVE, U Benzodiazepines Scrn NEGATIVE, Urine Cocaine Screen NEGATIVE, U Cannabinoids Screen NEGATIVE, Ur Drug Screen Comment Assessment & Plan Assessment/Plan (1) Alcohol withdrawal: PLAN: Plan 1 alcohol withdrawal?admit patient to general medical floor placed on [facility] protocol Charges/Coding Visit Charges Inpatient E&M: 79634 Init Hosp L2
[2022-05-27] MEDS: traZODone 100 MG Tablet PO ×2 (02:50→20:41)
[2022-05-27] MEDS: LORazepam 1 MG Tablet 2 MG PO ×3 (02:50→09:35)
[2022-05-27] MEDS: hydrOXYzine PAM 25 MG Capsule 50 MG PO ×2 (02:50→20:41)
[2022-05-27] MEDS: Ondansetron 8 MG Tablet PO (02:50)
[2022-05-27] MEDS: Thiamine Hydrochloride 100 MG Tablet PO (07:52)
[2022-05-27] MEDS: Folic Acid 1 MG Tablet PO (07:52)
[2022-05-27] MEDS: DULoxetine Hcl 60 MG Capsule PO (09:29)
[2022-05-27] MEDS: amLODIPine 5 MG Tablet PO (09:30)
[2022-05-27] MEDS: Metoprolol Tartrate 100 MG Tablet PO ×2 (09:30→20:42)
[2022-05-27] MEDS: APIXABAN 5 MG TABLET PO ×2 (09:30→20:43)
[2022-05-27] MEDS: Paroxetine 20 MG Tablet PO (09:31)
--- NOTE | 2022-05-27 11:38 | ADDICTION ---
This law writer attempted to meet with PT however, was unable to participate appropriately due to lethargy and confusion. This law writer completed ASAM and will attempt to meet with PT at next visit.?
[2022-05-27] MEDS: Phenobarbital 32.4 MG Tablet 64.8 MG PO ×3 (13:03→20:41)
[2022-05-27] MEDS: LORazepam 2 MG/ML Syringe IV (13:03)
[2022-05-27] MEDS: 0.9% Saline Lock 10 ML Syringe IV (13:04)
--- NOTE | 2022-05-27 19:08 | PN.HOSP_ITS ---
Hospitalist Note Was seen and examined today, he was admitted early this morning for alcohol detox services. Patient has recently been here for the same services but had failed follow-up. I told the patient today he would need to consent to go to an inpatient facility for detox. Patient had been recently discharged from this hospital on 05/09/2022 after being admitted for alcohol detox services. Patient was changed to a phenobarb taper from Ativan today. He will be seen by addiction social and political studies professor.
[2022-05-27] MEDS: ARIPiprazole 5 MG Tablet PO (20:43)
[2022-05-27] MEDS: Atorvastatin Calcium 40 MG Tablet PO (20:43)
[2022-05-28] VITALS (9 sets, daily range): BP systolic 107–144; BP diastolic 75–119; PULSE 63–105; RESP 14–18; TEMP 36–37.1; O2SAT 92–100
[2022-05-28] MEDS: Gabapentin 300 MG Capsule PO ×2 (01:12→10:21)
[2022-05-28] MEDS: Phenobarbital 32.4 MG Tablet 64.8 MG PO ×6 (01:12→22:40)
[2022-05-28] MEDS: hydrOXYzine PAM 25 MG Capsule 50 MG PO ×3 (04:37→23:31)
[2022-05-28] MEDS: Folic Acid 1 MG Tablet PO (07:44)
[2022-05-28] MEDS: Thiamine Hydrochloride 100 MG Tablet PO (07:44)
[2022-05-28] MEDS: DULoxetine Hcl 60 MG Capsule PO (10:20)
[2022-05-28] MEDS: amLODIPine 5 MG Tablet PO (10:21)
[2022-05-28] MEDS: Paroxetine 20 MG Tablet PO (10:21)
[2022-05-28] MEDS: Metoprolol Tartrate 100 MG Tablet PO ×2 (10:21→22:42)
[2022-05-28] MEDS: APIXABAN 5 MG TABLET PO ×2 (10:25→22:41)
[2022-05-28] MEDS: LORazepam 1 MG Tablet 2 MG PO (16:25)
--- NOTE | 2022-05-28 17:08 | PCM.PN.HOSP ---
Subjective Subjective Patient was seen and examined today, he is confused and delusional he is confused and delusional at times, other times he is somnolent. I have decided to place him back on p.o. Ativan as needed for increased confusion. Patient is able to take oral meds safely and is currently on phenobarb. Objective Data Objective Data Vital Signs: Vital Signs Temp Pulse Resp BP Pulse Ox O2 Del Method O2 Flow Rate 98.8 F 63 16 119/91 H 92 Room Air 2 05/28/22 16:15 05/28/22 16:15 05/28/22 16:15 05/28/22 16:15 05/28/22 16:15 05/28/22 16:15 05/28/22 07:47 Oxygen Flow Rate (L/min) 2 Oxygen Delivery Method Room Air Weight: 108 kg Body Mass Index (BMI) 36.1 Lab / Micro Data Result Diagrams: 05/26/22 23:33 05/26/22 23:33 Physical Exam Const alert, oriented x3, no apparent distress and average body habitus General Appearance: cooperative, well kempt and well developed Orientation / Consciousness: awake, oriented to person, oriented to place and oriented to time HEENT normocephalic and moist oral mucous membranes Eyes PERRL, EOMs intact bilaterally and conjunctivae normal Neck supple, no JVD, thyroid normal and no carotid bruits General: trachea midline Resp normal respiratory effort, no retractions, no use of accessory muscles and clear to auscultation bilaterally Auscultation: Negative for rales, rhonchi or wheezes Cardio S1 normal heart sound, S2 normal heart sound, no murmurs, no rub and no gallops Cardio Narrative: Heart rate and rhythm is irregular GI normal to inspection, nondistended, normoactive bowel sounds, soft to palpation, non-tender and non-distended Extremity normal to inspection and no clubbing, cyanosis or edema Skin no rashes or lesions noted General Skin Exam: no breakdown Neuro CN's II-XII intact bilaterally Neuro Narrative: Patient is somnolent but awakens to verbal stimuli readily, he is confused and does not answer questions appropriately. Psych Psych Narrative: Patient is confused, he is also somnolent at times Assessment & Plan Assessment/Plan (1) Alcohol withdrawal: PLAN: Plan 1. Acute alcohol withdrawal with behavioral disturbances-we will continue oral phenobarbital at this time, oral Ativan will be added as needed for agitation. #2 essential hypertension-patient is on medication #3 chronic depression-patient is on antidepressant therapy #4 chronic anticoagulant usage-patient is on apixaban #5 chronic atrial fibrillation-patient is on apixaban and rate limiting medication #6 hyperlipidemia-patient is on atorvastatin Charges/Coding Visit Charges Inpatient E&M: 28833 Subs Hosp L2
[2022-05-28] MEDS: ARIPiprazole 5 MG Tablet PO (22:41)
[2022-05-28] MEDS: Atorvastatin Calcium 40 MG Tablet PO (22:42)
[2022-05-28] MEDS: traZODone 100 MG Tablet PO (23:31)
[2022-05-29] VITALS (11 sets, daily range): BP systolic 90–137; BP diastolic 74–100; PULSE 56–90; RESP 16–22; TEMP 36.2–36.6; O2SAT 93–97
[2022-05-29] MEDS: Phenobarbital 32.4 MG Tablet 64.8 MG PO ×4 (01:00→12:18)
--- NOTE | 2022-05-29 02:55 | PCM.HOSP.N ---
Hospitalist Note Patient with new oxygen requirement with D satting into the 80s, improved on 2 to 3 L nasal cannula however has new crackles posterior bases and rhonchi anteriorly. Not on any supplementation IV fluids at this time. Admitted for alcohol withdrawal. Will obtain chest x-ray and initiate as needed albuterol given former tobacco use history.
[2022-05-29] MEDS: Albuterol 2.5 MG/3 ML VIAL.NEB. INHALATION (03:53)
--- NOTE | 2022-05-29 05:55 | RAD_ITS ---
STUDY: X-RAY CHEST REASON FOR EXAM: Male, 71 years old. Dyspnea TECHNIQUE: Single AP portable view of the chest. COMPARISON: Comparison is made with prior study dated 10/20/2017 FINDINGS: Stable elevation of the left hemidiaphragm. Stable blunting of the left costophrenic angle. No acute abnormality is seen. There is mild cardiac enlargement. Normal mediastinum and lorri. Normal visualized pulmonary arteries. Normal visualized aortic arch and descending thoracic aorta. There are diffuse degenerative changes of the visualized thoracic spine. Normal visualized ribs, clavicles, and shoulders. There is no demonstrated abnormality of the visualized soft tissue structures of the upper abdomen. RAD/Chest 1 View (Portable) IMPRESSION: Stable elevation of the left hemidiaphragm and blunting of the left costo phrenic angle. No acute abnormality is seen. Electronically Signed: Brian Hernandez MD at 10:10 EDT ,
[2022-05-29] MEDS: Thiamine Hydrochloride 100 MG Tablet PO (08:46)
[2022-05-29] MEDS: DULoxetine Hcl 60 MG Capsule PO (08:46)
[2022-05-29] MEDS: Metoprolol Tartrate 100 MG Tablet PO ×2 (08:46→20:54)
[2022-05-29] MEDS: APIXABAN 5 MG TABLET PO ×2 (08:46→20:55)
[2022-05-29] MEDS: Folic Acid 1 MG Tablet PO (08:46)
[2022-05-29] MEDS: amLODIPine 5 MG Tablet PO (08:46)
[2022-05-29] MEDS: Paroxetine 20 MG Tablet PO (08:47)
[2022-05-29] MEDS: Nystatin Powder 15gm Bottle 1 APPLIC TOPICAL ×2 (10:05→20:55)
--- NOTE | 2022-05-29 11:08 | ADDICTION ---
This worker attempted to talk to pt about d/c planning. Pt had eyes closed and was attempting to put remote in his mouth. This worker informed aide. Will return tomorrow to discuss d/c planning and treatment options.
--- NOTE | 2022-05-29 11:19 | CASEMGMT ---
WALT spoke with Turner, Surgical Tech about patient. Patient, per Turner, resides alone. Turner inquired about [facility] ([facility]). advised that patient is on phenobarbital and he will continue to monitor patient to assess if the phenobarbital is contributing to patient's current condition. MD will continue to evaluate. SW will continue to remain available if needs arise. Plan: SW remains available if needs arise. Reny GUO
[2022-05-29] MEDS: LORazepam 1 MG Tablet 2 MG PO (16:48)
--- NOTE | 2022-05-29 17:46 | PCM.PN.HOSP ---
Subjective Subjective Patient was seen and examined today, he remains confused and lethargic today, he does not appear to be in any distress however. I have made the decision to reduce patient's phenobarbital, and may be causing too much sedation in this patient. Objective Data Objective Data Vital Signs: Vital Signs Temp Pulse Resp BP Pulse Ox O2 Del Method O2 Flow Rate 97.9 F 83 18 121/89 H 95 Nasal Cannula 3 05/29/22 15:54 05/29/22 15:54 05/29/22 15:54 05/29/22 15:54 05/29/22 15:54 05/29/22 15:54 05/29/22 15:54 Oxygen Flow Rate (L/min) 3 Oxygen Delivery Method Nasal Cannula Weight: 108 kg Body Mass Index (BMI) 36.1 Intake & Output: Intake and Output for Last 24 Hours 05/27/22 05/28/22 05/29/22 23:59 23:59 23:59 Intake Total 0 / 0 Output Total 0 / 0 Balance 0 / 0 Lab / Micro Data Result Diagrams: 05/26/22 23:33 05/26/22 23:33 Radiography Diagnostic Testing: Radiology Impression Chest X-Ray 05/29/22 05:55 IMPRESSION: Stable elevation of the left hemidiaphragm and blunting of the left costo phrenic angle. No acute abnormality is seen. Electronically Signed: Brian Hernandez MD at 10:10 EDT , Physical Exam Const alert, oriented x3, no apparent distress and average body habitus Constitutional Narrative: Patient is lethargic, he arouses to painful stimuli and loud verbal stimulation but he is not able to carry on a conversation. He does not appear to be agitated. General Appearance: cooperative, well kempt and well developed Orientation / Consciousness: confused and lethargic HEENT normocephalic, head/scalp atraumatic and moist oral mucous membranes Eyes PERRL, EOMs intact bilaterally and conjunctivae normal Neck supple, no JVD, thyroid normal and no carotid bruits General: trachea midline Resp normal respiratory effort, no retractions, no use of accessory muscles and clear to auscultation bilaterally Auscultation: Negative for rales, rhonchi or wheezes Cardio regular rate, regular rhythm, S1 normal heart sound, S2 normal heart sound, no murmurs, no rub and no gallops Cardio Narrative: Heart rate and rhythm is irregular Rate: tachycardic GI normal to inspection, nondistended, normoactive bowel sounds, soft to palpation, non-tender and non-distended Extremity no clubbing, cyanosis or edema Skin no rashes or lesions noted General Skin Exam: no breakdown Neuro CN's II-XII intact bilaterally Neuro Narrative: Patient is lethargic and somnolent Psych cooperative Psych Narrative: Patient is lethargic and somnolent Mood & Affect: depressed and anxious Thought Content: No suicidality Assessment & Plan Assessment/Plan (1) Alcohol withdrawal: PLAN: Plan 1. Acute alcohol withdrawal with behavioral disturbances-again I feel the patient's phenobarbital should be decreased, I will take him off the phenobarbital taper at this time. Patient will be closely monitored #2 essential hypertension-patient is on medication #3 chronic depression-patient is on antidepressant therapy #4 chronic anticoagulant usage-patient is on apixaban #5 chronic atrial fibrillation-patient is on apixaban and rate limiting medication #6 hyperlipidemia-patient is on atorvastatin #7 hypoxia-probably secondary to sedate of effects of phenobarbital, pulse ox will be monitored, patient's chest x-ray shows no acute abnormality today Charges/Coding Visit Charges Inpatient E&M: 33104 Subs Hosp L2
[2022-05-29] MEDS: traZODone 100 MG Tablet PO (20:53)
[2022-05-29] MEDS: hydrOXYzine PAM 25 MG Capsule 50 MG PO (20:53)
[2022-05-29] MEDS: Atorvastatin Calcium 40 MG Tablet PO (20:55)
[2022-05-29] MEDS: ARIPiprazole 5 MG Tablet PO (20:56)
[2022-05-30] MEDS: LORazepam 1 MG Tablet 2 MG PO (00:14)
[2022-05-30 04:00] VITALS: BP 128/88; PULSE 84; RESP 18; TEMP 36.6; O2SAT 94
[2022-05-30 08:31] VITALS: PULSE 83
[2022-05-30] MEDS: Metoprolol Tartrate 100 MG Tablet PO ×2 (08:31→23:07)
[2022-05-30] MEDS: APIXABAN 5 MG TABLET PO ×2 (08:31→22:56)
[2022-05-30] MEDS: Paroxetine 20 MG Tablet PO (08:31)
[2022-05-30] MEDS: amLODIPine 5 MG Tablet PO (08:31)
[2022-05-30] MEDS: Thiamine Hydrochloride 100 MG Tablet PO (08:31)
[2022-05-30] MEDS: Folic Acid 1 MG Tablet PO (08:31)
[2022-05-30] MEDS: DULoxetine Hcl 60 MG Capsule PO (08:31)
[2022-05-30] MEDS: Nystatin Powder 15gm Bottle 1 APPLIC TOPICAL ×2 (08:32→22:58)
[2022-05-30 10:00] VITALS: BP 144/94; PULSE 83; RESP 18; TEMP 36.4; O2SAT 93
[2022-05-30 15:04] VITALS: BP 134/81; PULSE 94; RESP 18; TEMP 36.1; O2SAT 94
--- NOTE | 2022-05-30 15:17 | PN.HOSP_ITS ---
Subjective Subjective Patient was seen and examined today, he remains confused, he is arousable to verbal and painful stimuli however, he will not carry on a fluid conversation however. Addiction social sciences department chair is unable to assist the patient due to this mental status, I have lowered his phenobarbital today to a 3 times daily dosage, if he remains lethargic it may have to be lowered further. Patient does not seem to be in any distress, he remains on 3 L via nasal cannula. Objective Data Objective Data Vital Signs: Vital Signs Temp Pulse Resp BP Pulse Ox O2 Del Method O2 Flow Rate 97 F L 94 18 134/81 H 94 Nasal Cannula 3 05/30/22 15:04 05/30/22 15:04 05/30/22 15:04 05/30/22 15:04 05/30/22 15:04 05/30/22 15:04 05/30/22 15:04 Oxygen Flow Rate (L/min) 3 Oxygen Delivery Method Nasal Cannula Weight: 108 kg Body Mass Index (BMI) 36.1 Intake & Output: Intake and Output for Last 24 Hours 05/28/22 05/29/22 05/30/22 23:59 23:59 23:59 Intake Total 0 / 0 Output Total 0 / 0 Balance 0 / 0 Lab / Micro Data Result Diagrams: 05/26/22 23:33 05/26/22 23:33 Physical Exam Narrative Constitutional Narrative: Patient is lethargic, he arouses to painful stimuli and loud verbal stimulation but he is not able to carry on a conversation.? He does not appear to be agitated. General Appearance: cooperative, well kempt and well developed Orientation / Consciousness: confused and lethargic HEENT normocephalic, head/scalp atraumatic and moist oral mucous membranes Eyes PERRL, EOMs intact bilaterally and conjunctivae normal Neck supple, no JVD, thyroid normal and no carotid bruits General: trachea midline Resp normal respiratory effort, no retractions, no use of accessory muscles and clear to auscultation bilaterally Auscultation: Negative for rales, rhonchi or wheezes Cardio regular rate, regular rhythm, S1 normal heart sound, S2 normal heart sound, no murmurs, no rub and no gallops Cardio Narrative: Heart rate and rhythm is irregular Rate: tachycardic GI normal to inspection, nondistended, normoactive bowel sounds, soft to palpation, non-tender and non-distended Extremity no clubbing, cyanosis or edema Skin no rashes or lesions noted General Skin Exam: no breakdown Neuro CN's II-XII intact bilaterally Neuro Narrative: Patient is lethargic and somnolent Const alert, oriented x3, no apparent distress and average body habitus Constitutional Narrative: Patient is lethargic, he arouses to painful stimuli and loud verbal stimulation but he is not able to carry on a conversation. He does not appear to be agitated. General Appearance: cooperative, well kempt and well developed Orientation / Consciousness: awake, oriented to person, oriented to place, oriented to time, confused and lethargic HEENT normocephalic, head/scalp atraumatic and moist oral mucous membranes Eyes PERRL, EOMs intact bilaterally and conjunctivae normal Neck supple, no JVD, thyroid normal and no carotid bruits General: trachea midline Resp normal respiratory effort, no retractions, no use of accessory muscles and clear to auscultation bilaterally Auscultation: Negative for rales, rhonchi or wheezes Cardio regular rate, regular rhythm, S1 normal heart sound, S2 normal heart sound, no murmurs, no rub and no gallops Cardio Narrative: Heart rate and rhythm is irregular Rate: tachycardic GI normal to inspection, nondistended, normoactive bowel sounds, soft to palpation, non-tender and non-distended Extremity normal to inspection and no clubbing, cyanosis or edema Skin no rashes or lesions noted General Skin Exam: no breakdown Neuro CN's II-XII intact bilaterally, no focal motor deficits and no sensory deficits noted Neuro Narrative: Patient is lethargic and somnolent Psych cooperative Psych Narrative: Patient is lethargic and somnolent Mood & Affect: depressed and anxious Thought Content: No suicidality Assessment & Plan Assessment/Plan (1) Alcohol withdrawal: PLAN: Plan 1. Acute alcohol withdrawal with behavioral disturbances-patient appears less somnolent today than compared with yesterday, continue present medications #2 essential hypertension-patient is on medication #3 chronic depression-patient is on antidepressant therapy #4 chronic anticoagulant usage-patient is on apixaban #5 chronic atrial fibrillation-patient is on apixaban and rate limiting medication #6 hyperlipidemia-patient is on atorvastatin #7 hypoxia-probably secondary to sedate of effects of phenobarbital, pulse ox will be monitored Charges/Coding Visit Charges Inpatient E&M: 35374 Subs Hosp L2
[2022-05-30 22:30] VITALS: BP 139/91; PULSE 75; RESP 16; TEMP 36.9; O2SAT 98
[2022-05-30] MEDS: Atorvastatin Calcium 40 MG Tablet PO (22:57)
[2022-05-30] MEDS: ARIPiprazole 5 MG Tablet PO (22:58)
[2022-05-30 23:07] VITALS: PULSE 75
[2022-05-31] VITALS (8 sets, daily range): BP systolic 113–151; BP diastolic 75–115; PULSE 60–95; RESP 16–20; TEMP 36.2–36.4; O2SAT 96–99
--- NOTE | 2022-05-31 07:32 | PN.HOSP_ITS ---
Subjective Subjective Patient was seen in the examined today, he appears more alert today, he does not appear agitated, he told this examiner that he was worried about his dog at home and there was nobody to feed him but there are people listed in his contacts- patient admits that one of them is his friend. Objective Data Objective Data Vital Signs: Vital Signs Temp Pulse Resp BP Pulse Ox O2 Del Method O2 Flow Rate 97.6 F L 87 18 141/97 H 96 Room Air 3 05/31/22 04:00 05/31/22 04:00 05/31/22 04:00 05/31/22 04:00 05/31/22 04:00 05/31/22 04:00 05/30/22 15:04 Oxygen Flow Rate (L/min) 3 Oxygen Delivery Method Room Air Weight: 108 kg Body Mass Index (BMI) 36.1 Intake & Output: Intake and Output for Last 24 Hours 05/29/22 05/30/22 05/31/22 23:59 23:59 23:59 Intake Total 0 / 0 Output Total 0 / 0 400 / 400 Balance 0 / 0 -400 / -400 Lab / Micro Data Result Diagrams: 05/26/22 23:33 05/26/22 23:33 Physical Exam Narrative Constitutional Narrative: Patient is lethargic, he arouses to painful stimuli and loud verbal stimulation but he is not able to carry on a conversation.? He does not appear to be agitated. General Appearance: cooperative, well kempt and well developed Orientation / Consciousness: confused and lethargic HEENT normocephalic, head/scalp atraumatic and moist oral mucous membranes Eyes PERRL, EOMs intact bilaterally and conjunctivae normal Neck supple, no JVD, thyroid normal and no carotid bruits General: trachea midline Resp normal respiratory effort, no retractions, no use of accessory muscles and clear to auscultation bilaterally Auscultation: Negative for rales, rhonchi or wheezes Cardio Irregular rate and rhythm, S1 normal heart sound, S2 normal heart sound, no murmurs, no rub and no gallops Cardio Narrative: Heart rate and rhythm is irregular Rate: tachycardic GI normal to inspection, nondistended, normoactive bowel sounds, soft to palpation, non-tender and non-distended Extremity no clubbing, cyanosis or edema Skin no rashes or lesions noted General Skin Exam: no breakdown Neuro CN's II-XII intact bilaterally Neuro Narrative: Patient is lethargic and somnolent Const alert and no apparent distress Constitutional Narrative: Patient is alert, he does not appear confused General Appearance: cooperative and well developed Orientation / Consciousness: awake HEENT normocephalic, head/scalp atraumatic and moist oral mucous membranes Eyes PERRL, EOMs intact bilaterally and conjunctivae normal Neck supple, no JVD, thyroid normal and no carotid bruits General: trachea midline Resp normal respiratory effort, no retractions, no use of accessory muscles and clear to auscultation bilaterally Auscultation: Negative for rales, rhonchi or wheezes Cardio regular rate, regular rhythm, S1 normal heart sound, S2 normal heart sound, no murmurs, no rub and no gallops Cardio Narrative: Heart rate and rhythm is irregular Rate: tachycardic GI normal to inspection, nondistended, normoactive bowel sounds, soft to palpation, non-tender and non-distended Extremity no clubbing, cyanosis or edema Skin no rashes or lesions noted General Skin Exam: no breakdown Neuro oriented x3, CN's II-XII intact bilaterally, moves all extremities, no focal motor deficits and no sensory deficits noted Neuro Narrative: Patient is lethargic and somnolent Sensorium / Orientation: awake, alert, oriented to person and oriented to place Speech: speech normal Psych affect normal Psych Narrative: Patient is lethargic and somnolent Mood & Affect: depressed and anxious Thought Content: No suicidality Assessment & Plan Assessment/Plan (1) Alcohol withdrawal: PLAN: Plan 1. Acute alcohol withdrawal with behavioral disturbances-patient appears alert today and does not appear anxious or nervous, I will decrease his phenobarbital to twice daily today #2 essential hypertension-patient is on medication #3 chronic depression-patient is on antidepressant therapy #4 chronic anticoagulant usage-patient is on apixaban #5 chronic atrial fibrillation-patient is on apixaban and rate limiting medication #6 hyperlipidemia-patient is on atorvastatin #7 hypoxia-resolved, nursing states patient will not wear oxygen anyway Charges/Coding Visit Charges Inpatient E&M: 40023 Subs Hosp L2
[2022-05-31] MEDS: amLODIPine 5 MG Tablet PO (09:48)
[2022-05-31] MEDS: APIXABAN 5 MG TABLET PO ×2 (09:48→22:38)
[2022-05-31] MEDS: Thiamine Hydrochloride 100 MG Tablet PO (09:48)
[2022-05-31] MEDS: Paroxetine 20 MG Tablet PO (09:48)
[2022-05-31] MEDS: Folic Acid 1 MG Tablet PO (09:48)
[2022-05-31] MEDS: Metoprolol Tartrate 100 MG Tablet PO ×2 (09:48→20:59)
[2022-05-31] MEDS: Nystatin Powder 15gm Bottle 1 APPLIC TOPICAL ×2 (09:48→22:24)
[2022-05-31] MEDS: DULoxetine Hcl 60 MG Capsule PO (09:48)
[2022-05-31] MEDS: LORazepam 1 MG Tablet 2 MG PO ×2 (13:59→20:44)
--- NOTE | 2022-05-31 19:50 | NURSING ---
PT RESTLESS AND HALLUCINATING, BED ALARM SOUNDING, PT FOUND AT THE SIDE OF THE BED, STARTED TO TRY TO PICK SOMETHING UP ON THE FLOOR, PT VERY CONFUSED, THINKS HE IS IN HAMER, UNABLE TO REORIENT. LINENS CHANGED AND WASHED UP, NEW DIAPER APPLIED.
--- NOTE | 2022-05-31 20:35 | NURSING ---
pt bed alarm sounding, when staff entered the room he was found on the floor, stated he hit his head, no visible injuries, vss, pt very confused, not oriented. dr hoffman notified and head ct ordered.
--- NOTE | 2022-05-31 20:50 | CT_ITS ---
STUDY: CT BRAIN WITHOUT CONTRAST REASON FOR EXAM: Male, 71 years old. Fall RADIATION DOSAGE (If Supplied By Facility): CTDIvol = ( 44.99 ) mGy, DLP = ( 914.22 ) mGycm TECHNIQUE: Transaxial CT imaging of the brain was performed without administration of intravenous contrast material. Individualized dose optimization techniques were used for this CT. COMPARISON: CT head 10/19/2017 FINDINGS: BRAIN: No acute bleed. No edema. Decreased attenuation in the periventricular white matter bilaterally. Wheatley-white matter differentiation is maintained. Arterial calcifications. VENTRICLES AND SULCI: The ventricles and sulci are prominent. EXTRA-AXIAL: No hemorrhage, fluid collection, or mass. CALVARIUM / SKULL BASE: Unremarkable. FACE/SINUSES: Mastoid air cells on the left are minimally opacified. Mucosal thickening in the maxillary sinuses. SOFT TISSUES: Soft tissue swelling in the right posterior parietal scalp with small nodular component. There is a similar density in this region on the prior CT head, the surrounding swelling is increased, uncertain if this is a sebaceous cyst with swelling or hematoma/contusion. CT/Brain/Head without Contrast IMPRESSION: Questionable right posterior scalp hematoma/contusion versus sebaceous cyst or other process. Surrounding swelling is increased compared to prior study. No evidence of acute intracranial injury. Chronic microvascular ischemic disease. Electronically Signed: Lluvia Thorpe MD at 21:34 EDT ,
--- NOTE | 2022-05-31 20:51 | PCM.HOSP.N ---
Hospitalist Note Patient with mechanical fall, not witnessed but patient reports hitting his head although no overt sign of trauma to the cranium. He has abrasions noted to his leg and right wrist. Patient status is appropriate and similar to pre-fall per discussion with staff. To be cautious will obtain CT brain.
[2022-05-31] MEDS: Atorvastatin Calcium 40 MG Tablet PO (20:58)
[2022-05-31] MEDS: ARIPiprazole 5 MG Tablet PO (20:58)
[2022-05-31] MEDS: Gabapentin 300 MG Capsule PO (22:24)
--- NOTE | 2022-05-31 23:00 | NURSING ---
PT SLEEPING, CHECKED HIS O2 SAT, 89%, SNORING, PLACED ON 2LNC
[2022-06-01] VITALS (10 sets, daily range): BP systolic 120–147; BP diastolic 70–90; PULSE 72–93; RESP 16–20; TEMP 36.2–36.8; O2SAT 94–100
--- NOTE | 2022-06-01 06:44 | NURSING ---
PTS BED ALARM SOUNDED AND THE PT WAS FOUND ON HIS KNEES ON THE FLOOR, PT INC OF URINE IN THE DIAPER,ANIKET CARE GIVEN.
[2022-06-01] MEDS: Metoprolol Tartrate 100 MG Tablet PO ×2 (09:00→21:16)
[2022-06-01] MEDS: Paroxetine 20 MG Tablet PO (09:00)
[2022-06-01] MEDS: amLODIPine 5 MG Tablet PO (09:00)
[2022-06-01] MEDS: Thiamine Hydrochloride 100 MG Tablet PO (09:01)
[2022-06-01] MEDS: APIXABAN 5 MG TABLET PO ×2 (09:01→21:13)
[2022-06-01] MEDS: DULoxetine Hcl 60 MG Capsule PO (09:01)
[2022-06-01] MEDS: Folic Acid 1 MG Tablet PO (09:01)
[2022-06-01] MEDS: Menthol/Lanolin/Calamine/Znox 113 GM Tube 1 APPLIC TOPICAL ×2 (09:01→21:13)
[2022-06-01] MEDS: Nystatin Powder 15gm Bottle 1 APPLIC TOPICAL ×2 (09:01→21:20)
--- NOTE | 2022-06-01 10:37 | PCM.PN.HOSP ---
Subjective Subjective Patient was seen and examined today, he is confused at times but not belligerent or agitated. Patient appears to be in no distress at this time. Objective Data Objective Data Vital Signs: Vital Signs Temp Pulse Resp BP Pulse Ox O2 Del Method O2 Flow Rate 97.6 F L 85 20 H 147/90 H 96 Nasal Cannula 2 06/01/22 07:55 06/01/22 09:00 06/01/22 07:55 06/01/22 07:55 06/01/22 07:55 06/01/22 08:00 06/01/22 08:00 Oxygen Flow Rate (L/min) 2 Oxygen Delivery Method Nasal Cannula Weight: 108 kg Body Mass Index (BMI) 36.1 Intake & Output: Intake and Output for Last 24 Hours 05/30/22 05/31/22 06/01/22 23:59 23:59 23:59 Intake Total 700 / 700 200 / 200 Output Total 400 / 400 Balance 300 / 300 200 / 200 Lab / Micro Data Result Diagrams: 05/26/22 23:33 05/26/22 23:33 Radiography Diagnostic Testing: Radiology Impression Brain CT 05/31/22 20:50 IMPRESSION: Questionable right posterior scalp hematoma/contusion versus sebaceous cyst or other process. Surrounding swelling is increased compared to prior study. No evidence of acute intracranial injury. Chronic microvascular ischemic disease. Electronically Signed: Lluvia Thorpe MD at 21:34 EDT , Physical Exam Narrative Constitutional Narrative: Patient is lethargic, he arouses to painful stimuli and loud verbal stimulation but he is not able to carry on a conversation.? He does not appear to be agitated. General Appearance: cooperative, well kempt and well developed Orientation / Consciousness: confused and lethargic HEENT normocephalic, head/scalp atraumatic and moist oral mucous membranes Eyes PERRL, EOMs intact bilaterally and conjunctivae normal Neck supple, no JVD, thyroid normal and no carotid bruits General: trachea midline Resp normal respiratory effort, no retractions, no use of accessory muscles and clear to auscultation bilaterally Auscultation: Negative for rales, rhonchi or wheezes Cardio Irregular rate and rhythm, S1 normal heart sound, S2 normal heart sound, no murmurs, no rub and no gallops Cardio Narrative: Heart rate and rhythm is irregular Rate: tachycardic GI normal to inspection, nondistended, normoactive bowel sounds, soft to palpation, non-tender and non-distended Extremity no clubbing, cyanosis or edema Skin no rashes or lesions noted General Skin Exam: no breakdown Neuro CN's II-XII intact bilaterally Neuro Narrative: Patient is lethargic and somnolent Const no apparent distress Constitutional Narrative: Patient appears older than his stated age, he awakens to verbal or painful stimuli although he remains mildly confused at this time. General Appearance: cooperative, well kempt and well developed Orientation / Consciousness: awake, oriented to person, oriented to place and confused HEENT normocephalic, head/scalp atraumatic and moist oral mucous membranes Eyes PERRL, EOMs intact bilaterally and conjunctivae normal Neck supple, no JVD, thyroid normal and no carotid bruits General: trachea midline Resp normal respiratory effort, no retractions, no use of accessory muscles and clear to auscultation bilaterally Auscultation: Negative for rales, rhonchi or wheezes Cardio S1 normal heart sound, S2 normal heart sound, no murmurs, no rub and no gallops Cardio Narrative: Heart rate and rhythm is irregular Rate: tachycardic GI normal to inspection, nondistended, normoactive bowel sounds, soft to palpation, non-tender and non-distended Extremity no clubbing, cyanosis or edema Skin no rashes or lesions noted General Skin Exam: no breakdown Neuro oriented x3, CN's II-XII intact bilaterally, moves all extremities, no focal motor deficits and no sensory deficits noted Neuro Narrative: Patient is lethargic and somnolent Sensorium / Orientation: awake and alert Speech: speech normal Psych cooperative and affect normal Psych Narrative: Patient is lethargic and sleepy at times, he does awaken to verbal and painful stimuli however Mood & Affect: depressed and anxious Thought Content: No suicidality Assessment & Plan Assessment/Plan (1) Alcohol withdrawal: PLAN: Plan 1. Acute alcohol withdrawal with behavioral disturbances-patient appears more alert today and does not appear anxious or nervous, continue phenobarbital #2 essential hypertension-patient is on medication #3 chronic depression-patient is on antidepressant therapy #4 chronic anticoagulant usage-patient is on apixaban #5 chronic atrial fibrillation-patient is on apixaban and rate limiting medication #6 hyperlipidemia-patient is on atorvastatin #7 hypoxia-resolved, nursing states patient will not wear oxygen anyway Charges/Coding Visit Charges Inpatient E&M: 40025 Subs Hosp L2
[2022-06-01] MEDS: traZODone 100 MG Tablet PO (21:12)
[2022-06-01] MEDS: Atorvastatin Calcium 40 MG Tablet PO (21:13)
[2022-06-01] MEDS: ARIPiprazole 5 MG Tablet PO (21:13)
[2022-06-02] VITALS (7 sets, daily range): BP systolic 117–153; BP diastolic 75–98; PULSE 80–94; RESP 15–18; TEMP 36.6–36.7; O2SAT 94–96
--- NOTE | 2022-06-02 01:04 | NURSING ---
pt grunting and making noise, found to be trying to get out of bed, assisted to the restroom, voided per the toilet, linens changed, leroy care given, left armpit found to be all excoriated, nystatin powder applied after washing up
[2022-06-02] MEDS: LORazepam 1 MG Tablet 2 MG PO ×3 (02:11→23:38)
--- NOTE | 2022-06-02 02:12 | NURSING ---
pt restless focused on a girl named Lorna keeps talking about her and saying she is coming to visit, tried to get out of bed.
--- NOTE | 2022-06-02 07:12 | PCM.PN.HOSP ---
Subjective Subjective Weak. No new events Objective Data Objective Data Vital Signs: Vital Signs Temp Pulse Resp BP Pulse Ox O2 Del Method O2 Flow Rate 36.7 C 80 16 130/82 H 94 Room Air 2 06/02/22 02:15 06/02/22 02:15 06/02/22 02:15 06/02/22 02:15 06/02/22 02:15 06/02/22 02:15 06/01/22 08:00 Oxygen Flow Rate (L/min) 2 Oxygen Delivery Method Room Air Weight: 108 kg Body Mass Index (BMI) 36.1 Intake & Output: Intake and Output for Last 24 Hours 05/31/22 06/01/22 06/02/22 23:59 23:59 23:59 Intake Total 700 / 700 1280 / 1280 Output Total 400 / 400 Balance 300 / 300 1280 / 1280 Lab / Micro Data Result Diagrams: 05/26/22 23:33 05/26/22 23:33 Physical Exam Const alert Constitutional Narrative: up in chair, eating lunch HEENT head/scalp atraumatic and moist oral mucous membranes HEENT Narrative: rosacea on nose Assessment & Plan Assessment/Plan (1) Alcohol withdrawal: PLAN: acute failed prior outpt treatment program. continue phenobarbital taper, thiamine and folate plan for intermediate PLAN: Plan Chronic Afib: apixaban Greater than 35 minutes of which greater than 50% of the time was counseling the patient about intermediate and debility. Charges/Coding Visit Charges Inpatient E&M: 00673 Subs Hosp L2
[2022-06-02] MEDS: APIXABAN 5 MG TABLET PO ×2 (08:09→20:39)
[2022-06-02] MEDS: Metoprolol Tartrate 100 MG Tablet PO ×2 (08:09→20:39)
[2022-06-02] MEDS: Thiamine Hydrochloride 100 MG Tablet PO (08:10)
[2022-06-02] MEDS: Menthol/Lanolin/Calamine/Znox 113 GM Tube 1 APPLIC TOPICAL ×2 (08:10→20:40)
[2022-06-02] MEDS: Paroxetine 20 MG Tablet PO (08:10)
[2022-06-02] MEDS: Folic Acid 1 MG Tablet PO (08:10)
[2022-06-02] MEDS: DULoxetine Hcl 60 MG Capsule PO (08:10)
[2022-06-02] MEDS: amLODIPine 5 MG Tablet PO (08:10)
[2022-06-02] MEDS: Nystatin Powder 15gm Bottle 1 APPLIC TOPICAL ×2 (08:11→20:40)
--- NOTE | 2022-06-02 12:00 | CASEMGMT ---
Social Work SW spoke with addiction therapist who states pt cannot go to residential treatment due to physical limitations. SW and Addiction Therapist met with pt and discussed discharge options. Pt is agreeable to SNF for short term physical rehab. SW provided list of SNF providers including quality and resource use data and consistent with the patient's preferred geographic region, medical needs and insurance network. Pt preferred provider [facility]. Referral to be made. PRISCILLA Yin
[2022-06-02] MEDS: Gabapentin 300 MG Capsule PO ×2 (15:10→23:07)
--- NOTE | 2022-06-02 15:53 | CASEMGMT ---
Social Work Per WALT Campoverde, pt wants to go to [facility]. WALT called [facility] to confirm open beds. [facility] stating they have openings. WALT faxed referral to Raine at the [facility]. Plan: [facility], pending acceptance and precert. PRISCILLA Samuels
[2022-06-02] MEDS: traZODone 100 MG Tablet PO (20:39)
[2022-06-02] MEDS: hydrOXYzine PAM 25 MG Capsule 50 MG PO (20:39)
[2022-06-02] MEDS: Atorvastatin Calcium 40 MG Tablet PO (20:39)
[2022-06-02] MEDS: ARIPiprazole 5 MG Tablet PO (20:39)
[2022-06-03] MEDS: hydrOXYzine PAM 25 MG Capsule 50 MG PO (05:23)
[2022-06-03 05:33] VITALS: BP 145/99; PULSE 78; RESP 16; TEMP 36.4; O2SAT 94
[2022-06-03] MEDS: LORazepam 1 MG Tablet 2 MG PO (06:53)
--- NOTE | 2022-06-03 06:57 | PN.HOSP_ITS ---
Subjective Subjective No events overnight Objective Data Objective Data Vital Signs: Vital Signs Temp Pulse Resp BP Pulse Ox O2 Del Method O2 Flow Rate 36.4 C L 78 16 145/99 H 94 Room Air 2 06/03/22 05:33 06/03/22 05:33 06/03/22 05:33 06/03/22 05:33 06/03/22 05:33 06/03/22 05:33 06/01/22 08:00 Oxygen Flow Rate (L/min) 2 Oxygen Delivery Method Room Air Weight: 108 kg Body Mass Index (BMI) 36.1 Intake & Output: Intake and Output for Last 24 Hours 06/01/22 06/02/22 06/03/22 23:59 23:59 23:59 Intake Total 1280 / 1280 240 / 240 Balance 1280 / 1280 240 / 240 Lab / Micro Data Result Diagrams: 05/26/22 23:33 05/26/22 23:33 Physical Exam Const alert Constitutional Narrative: More confused today. Patient is eating breakfast but has eggs and wei on his chest. He is eating with his hands and that with a fork. Resp normal respiratory effort, no retractions, no use of accessory muscles and clear to auscultation bilaterally Cardio regular rate, regular rhythm, S1 normal heart sound and S2 normal heart sound GI normal to inspection, nondistended, normoactive bowel sounds, soft to palpation and non-tender Assessment & Plan Assessment/Plan (1) Alcohol withdrawal: PLAN: acute failed prior outpt treatment program. continue phenobarbital taper, thiamine and folate plan for senior care PLAN: Plan Chronic Afib: apixaban Disposition: TBD. Pending insurance authorization for senior care. Charges/Coding Visit Charges Inpatient E&M: 05032 Subs Hosp L2
--- NOTE | 2022-06-03 09:15 | CASEMGMT ---
Social Work SW placed call to [facility] to inquire about referral for placement. Decision for acceptance has not yet been made. Raine to call this SW back once determination is reached. PRISCILLA Yin
[2022-06-03 09:33] VITALS: BP 136/83; PULSE 82; RESP 18; TEMP 36.7; O2SAT 94
[2022-06-03 09:46] VITALS: PULSE 82
[2022-06-03] MEDS: APIXABAN 5 MG TABLET PO ×2 (09:46→21:12)
[2022-06-03] MEDS: Folic Acid 1 MG Tablet PO (09:46)
[2022-06-03] MEDS: Thiamine Hydrochloride 100 MG Tablet PO (09:46)
[2022-06-03] MEDS: DULoxetine Hcl 60 MG Capsule PO (09:46)
[2022-06-03] MEDS: amLODIPine 5 MG Tablet PO (09:46)
[2022-06-03] MEDS: Metoprolol Tartrate 100 MG Tablet PO ×2 (09:46→21:12)
[2022-06-03] MEDS: Paroxetine 20 MG Tablet PO (09:46)
[2022-06-03] MEDS: Menthol/Lanolin/Calamine/Znox 113 GM Tube 1 APPLIC TOPICAL ×2 (09:47→21:17)
[2022-06-03] MEDS: Nystatin Powder 15gm Bottle 1 APPLIC TOPICAL ×2 (09:47→21:17)
--- NOTE | 2022-06-03 10:59 | CASEMGMT ---
Faxed referral to [facility].
--- NOTE | 2022-06-03 13:36 | CASEMGMT ---
Social Work SW spoke with [facility] at [facility] and they are unable to accept pt. SW met with pt in room. Pt is awake and alert. Pt greeted SW Happy Easter. When SW asked pt to look out the window he is able to tell SW it is summer. Pt lunch tray present and pt unable to get fork from plate to mouth. Pt attempts to answer some of SW questions but is mostly non sensical. Pt has two friends listed on demographic sheet. SW placed call to Rafael Del Valle who states he is a friend of pt's since childhood. SW inquired if pt has a HCPOA (none is on file) and Rafael is uncertain but unaware of one. Rafael states pt has been a couple times and , pt has never had children. Per Rafael pt has one Brother, Roby Mccabe ([phone] home, ), who lives in [place] and one sister, Shanell Gray ([phone]) who lives in [place]. Phone call to Roby Mccabe and SÁNCHEZ left on both cell and home phone. Phone Call to Shanellmohan Gray and SÁNCHEZ left. Referral made to [facility]. Per [facility] beds are available and clinicals will be reviewed for acceptance. PRISCILLA Yin
[2022-06-03 14:46] VITALS: BP 148/93; PULSE 88; RESP 18; TEMP 36.4; O2SAT 94
--- NOTE | 2022-06-03 15:13 | CASEMGMT ---
Social Work SW received return phone call from both Pt's brother Roby and pt's sister Shanell. SW explained pts hospitalization course including confusion and functional debility. Both siblings deny knowledge of a Health Care POA. Both state pt has been doing ok at home with no confusion. Pt brother states pt has been in and out of nursing facilities over the years and that pt had a 2 year period of sobriety a few years ago but has since relapsed. SW spoke with siblings regarding SNF placement and both are agreeable. SW reviewed SNF list with siblings of in network facilities and which have bed availability. Siblings are agreeable to referral to [facility]. SW received call from [facility] and they are able to accept pt. Precert to be started at this time. Plan: [facility], pending precert PRISCILLA Yin
[2022-06-03 21:12] VITALS: PULSE 84
[2022-06-03] MEDS: Gabapentin 300 MG Capsule PO (21:12)
[2022-06-03] MEDS: Atorvastatin Calcium 40 MG Tablet PO (21:12)
[2022-06-03] MEDS: traZODone 100 MG Tablet PO (21:12)
[2022-06-03] MEDS: ARIPiprazole 5 MG Tablet PO (21:12)
[2022-06-03 21:15] VITALS: BP 146/105; PULSE 84; RESP 18; TEMP 37; O2SAT 98
[2022-06-04] MEDS: LORazepam 1 MG Tablet 2 MG PO ×2 (00:30→05:16)
[2022-06-04 03:00] VITALS: RESP 18
[2022-06-04 04:56] VITALS: BP 154/112; PULSE 79; RESP 18; TEMP 36.8; O2SAT 94
[2022-06-04] MEDS: Gabapentin 300 MG Capsule PO (06:13)
--- NOTE | 2022-06-04 07:00 | PCM.PN.HOSP ---
Subjective Subjective No events overnight. Objective Data Objective Data Vital Signs: Vital Signs Temp Pulse Resp BP Pulse Ox O2 Del Method O2 Flow Rate 36.8 C 79 18 154/112 H 94 Room Air 2 06/04/22 04:56 06/04/22 04:56 06/04/22 04:56 06/04/22 04:56 06/04/22 04:56 06/04/22 04:56 06/01/22 08:00 Oxygen Flow Rate (L/min) 2 Oxygen Delivery Method Room Air Weight: 108 kg Body Mass Index (BMI) 36.1 Intake & Output: Intake and Output for Last 24 Hours 06/02/22 06/03/22 06/04/22 23:59 23:59 23:59 Intake Total 360 / 360 Balance 360 / 360 Lab / Micro Data Result Diagrams: 05/26/22 23:33 05/26/22 23:33 Physical Exam Const alert and no apparent distress Psych Psych Narrative: flat affect Assessment & Plan Assessment/Plan (1) Alcohol withdrawal: PLAN: acute failed prior outpt treatment program. continue phenobarbital taper, thiamine and folate plan for retirement PLAN: Plan Chronic Afib: apixaban Disposition: [facility]. Pending insurance authorization for retirement.
[2022-06-04] MEDS: amLODIPine 10 MG Tablet PO (07:36)
[2022-06-04 08:08] VITALS: PULSE 79
[2022-06-04] MEDS: Folic Acid 1 MG Tablet PO (08:08)
[2022-06-04] MEDS: Paroxetine 20 MG Tablet PO (08:08)
[2022-06-04] MEDS: DULoxetine Hcl 60 MG Capsule PO (08:08)
[2022-06-04] MEDS: Metoprolol Tartrate 100 MG Tablet PO (08:08)
[2022-06-04] MEDS: Thiamine Hydrochloride 100 MG Tablet PO (08:08)
[2022-06-04] MEDS: APIXABAN 5 MG TABLET PO (08:08)
[2022-06-04] MEDS: Menthol/Lanolin/Calamine/Znox 113 GM Tube 1 APPLIC TOPICAL (08:09)
[2022-06-04] MEDS: Nystatin Powder 15gm Bottle 1 APPLIC TOPICAL (08:13)
[2022-06-04 08:16] VITALS: BP 150/97; PULSE 79; RESP 18; TEMP 36.9; O2SAT 94
--- NOTE | 2022-06-04 09:43 | CASEMGMT ---
Social Work Pt voiced concerns for a pet. Pt speaks of a dog or a turtle. Staff unsure if pt actually has a pet dog or turtle based on his confusion. WALT called pt contact, Rafael, to inquire. Rafael did not answer. WALT left message with concern about pet, if Rafael has knowledge of it and if it is being fed. Requested Rafael call back. PRISCILLA Christian
--- NOTE | 2022-06-04 10:55 | TREXTCAR_ITS ---
Diet Diet Order/Speech Therapy: 05/27/22 10:46 Diet: Regular - General Is pt able to select menu?: No Diet Comments: please deliver food to nurses' station, has a tendency to dump tray on him Wound(s) RIGHT KNEE: Wound Type: Abrasion top of scalp: Wound Type: cyst Therapies Physical Therapy: Eval and Treat Occupational Therapy: Eval and Treat Problem/Diagnosis (1) Alcohol withdrawal: Status: Acute Code(s): F10.939 - Alcohol use, unspecified with withdrawal, unspecified Plan: acute failed prior outpt treatment program. complete phenobarbital taper continue thiamine and folate [facility]. [facility] Chronic Afib: apixaban Disposition: [facility]. Pending insurance authorization for senior living. Allergies/Procedures Done in Hospital Allergies No Known Allergies Allergy (Verified 05/26/22 22:22) Procedures: None Type of Care/Length of Stay Estimated LOS: Convalescent Care Less Than 30 days Type of Care Needed: Skilled Rehab Potential: Fair Prognosis: Fair Additional Orders/Day of Discharge Day of Discharge: 06/04/22 Dietary and Speech Recommendations Dietitian Recommendations/Changes: continue regular diet, ensure enlive 120mL 4x/day w/ medpass- okay to discontinue if PO intake remains adequate at meals. Discharge Plan Admission Admit Date/Time: 05/27/22 01:52 Attending Provider: Turner Carl Primary Care Provider: Graciela Ashley Consulting Providers: Mike Weeks ; Jorge Gardner Discharge Orders/Prescriptions Prescriptions: New multivitamin Tablet 1 tab PO DAILY Qty: 30 0RF amlodipine 10 mg Tablet 10 mg PO DAILY Qty: 0 0RF Continued paroxetine HCl 20 mg tablet 20 mg PO DAILY Eliquis 5 mg tablet 5 mg PO BID metoprolol tartrate 100 mg tablet 100 mg PO BID duloxetine 60 mg capsule,delayed release(DR/EC) 60 cap PO DAILY atorvastatin 40 mg tablet 40 tab DAILY Label Comments: 1 tablet by mouth as directed aripiprazole 5 mg Tablet 5 mg PO DAILY Discontinued aspirin 81 MG tablet,delayed release (DR/EC) 81 mg PO DAILY No Action amlodipine 5 mg tablet 5 tab DAILY Label Comments: TAKE 1 TABLET BY MOUTH ONCE DAILY Referrals / Follow Up: Graciela Ashley, [Primary Care Provider] - Disposition Disposition (needs filled in before D/C Order can be placed): Residential Facility
--- NOTE | 2022-06-04 11:01 | DS.PCM_ITS ---
Providers Date of Admission: 05/27/22 Primary Care Physician: Graciela Ashley DO Reason For Visit: ALCOHOL WITHDRAWAL Diagnosis Discharge Diagnosis (1) Alcohol withdrawal: Status: Acute Code(s): F10.939 - Alcohol use, unspecified with withdrawal, unspecified Plan: acute failed prior outpt treatment program. complete phenobarbital taper continue thiamine and folate plan for sn[facility]. Plan Chronic Afib: apixaban Disposition: [facility]. Pending insurance authorization for snf. Medications at Discharge Home Medications apixaban 5 mg tablet (Eliquis) 5 mg PO BID 10/03/19 metoprolol tartrate 100 mg tablet 100 mg PO BID 10/03/19 paroxetine HCl 20 mg tablet 20 mg PO DAILY 10/03/19 amlodipine 5 mg tablet 5 tab DAILY 05/08/22 atorvastatin 40 mg tablet 40 tab DAILY 05/08/22 duloxetine 60 mg capsule,delayed release 60 cap PO DAILY 05/08/22 aripiprazole 5 mg tablet 5 mg PO DAILY 05/26/22 amlodipine 10 mg tablet 10 mg PO DAILY #0 tabs 06/04/22 multivitamin 1 tab PO DAILY #30 tabs 06/04/22 Hospital Course Operations None Procedures None Summary of Care Provided Minutes Spent on Discharge: 28 Weight / BMI Weight Weight: 108 kg Body Mass Index (BMI) 36.1 ABG / Lab / Microbiology Data Result Diagrams: 05/26/22 23:33 05/26/22 23:33 Meaningful Use Info Meaningful Use Diagnoses (Choose all that apply): None applicable Discharge Plan Admission Admit Date/Time: 05/27/22 01:52 Primary Reason for Your Visit: alcohol withdrawal Attending Provider: Turner Carl Primary Care Provider: Graciela Ashley Consulting Providers: Mike Weeks ; Jorge Gardner Discharge Orders/Prescriptions Prescriptions: New multivitamin Tablet 1 tab PO DAILY Qty: 30 0RF amlodipine 10 mg Tablet 10 mg PO DAILY Qty: 0 0RF Continued paroxetine HCl 20 mg tablet 20 mg PO DAILY Eliquis 5 mg tablet 5 mg PO BID metoprolol tartrate 100 mg tablet 100 mg PO BID duloxetine 60 mg capsule,delayed release(DR/EC) 60 cap PO DAILY atorvastatin 40 mg tablet 40 tab DAILY Label Comments: 1 tablet by mouth as directed aripiprazole 5 mg Tablet 5 mg PO DAILY Discontinued aspirin 81 MG tablet,delayed release (DR/EC) 81 mg PO DAILY No Action amlodipine 5 mg tablet 5 tab DAILY Label Comments: TAKE 1 TABLET BY MOUTH ONCE DAILY Referrals / Follow Up: Graciela Ashley DO [Primary Care Provider] - Disposition Disposition (needs filled in before D/C Order can be placed): [facility] Charges/Coding Visit Charges Inpatient E&M: 72750 Disch Hosp
--- NOTE | 2022-06-04 12:59 | NURSING ---
Called report to TCU nurse. She will call back once the room is cleaned and we can bring pt to room 9.
[2022-06-04 14:07] VITALS: BP 127/93; PULSE 79; RESP 18; TEMP 36.6; O2SAT 98
--- NOTE | 2022-06-04 14:21 | NURSING ---
Called report to Ena peoples at [facility]. Pt to be picked up at 14:30.
--- NOTE | 2022-06-04 15:27 | CASEMGMT ---
Social Work Per physician pt is ready for discharge today. 7000 convalescent form completed in [facility] and faxed along with orders to [facility]. Transportation arranged with [facility] for 2:30 flower buncher or picker via [facility]. Sridevi at [facility] updated on time of discharge. Phone call to pt brother Roby and left VM that pt would discharge today. Nursing updated on discharge time. Followup phone call to pt friend Rafale and inquired if pt does have pets at home unattended. Rafael reports that pts dog a few years ago and he does have a pet turtle which Rafael has taken care this week. Disposition: [facility], skilled level of care under convalescent stay PRISCILLA Yin
--- NOTE | 2022-06-04 15:50 | NURSING ---
[facility] called checking for update on cot pickup status ETA 32-40minutes.
== END 2022-06-04 16:45 | DRG 897 ==
LOC: ED 05-27 01:21 → MS3 05-27 02:17
PROVIDERS: Admitting Provider Family Medicine; Emergency Provider Emergency Medicine; PCP Family Medicine
DX: F10.232 Alcohol dependence with withdrawal with perceptual disturbance (principal); I48.20 Chronic atrial fibrillation, unspecified; F41.8 Other specified anxiety disorders; I10 Essential (primary) hypertension; E78.5 Hyperlipidemia, unspecified; W19.XXXA Unspecified fall, initial encounter; L72.3 Sebaceous cyst; S60.811A Abrasion of right wrist, initial encounter; S80.819A Abrasion, unspecified lower leg, initial encounter; Z87.891 Personal history of nicotine dependence; Z79.82 Long term (current) use of aspirin; Z79.899 Other long term (current) drug therapy; Z79.01 Long term (current) use of anticoagulants; R09.02 Hypoxemia
CPT/HCPCS: 70450; 71045; 80053; 80307; 82077; 85025; 87426; 93005; 94640; 97110; 97116; 97162; 97166; 97530; 97535; 97802; 99285; A4216

== ENCOUNTER 2022-11-07 02:44 | Emergency (ER) | payer MEDICARE, MEDICAID, SELFPAY ==
[2022-11-07 02:45] VITALS: BP 148/91; PULSE 84; RESP 16; TEMP 36.4; O2SAT 98; BMI 35.7
--- NOTE | 2022-11-07 04:28 | EX.ED.DYSGE1 ---
HPI History of Present Illness Chief Complaint: Anxiety Narrative Narrative: Patient is a 72-year-old male with past medical history of alcohol abuse hypertension and paroxysmal atrial fibrillation currently on Eliquis. He states that he drinks typically 24 beers per day. He states that he will drink his last beer just before bed around 9 PM and then wake up around 2 or 3 in the morning and drink another beer until he can get through until roughly 8 AM and began drinking once again. He states he went through inpatient rehab and detox roughly 6 months ago but returned to drinking over the past month. He states that he has not had a drink for approximately 12 hours and is feeling nervous and anxious and was considering possible detox. He denies any homicidal or suicidal ideation [facility] Medical History Alcohol withdrawal Alcoholic cardiomyopathy Atrial fibrillation, chronic Atrial flutter, paroxysmal Depression with anxiety History of acute alcoholic hepatitis History of alcoholism HTN (hypertension) Panic disorder Home Medications apixaban 5 mg tablet (Eliquis) 5 mg PO BID 10/03/19 [History Last Taken Unknown] metoprolol tartrate 100 mg tablet 100 mg PO BID 10/03/19 [History Last Taken Unknown] paroxetine HCl 20 mg tablet 20 mg PO DAILY 10/03/19 [History Last Taken Unknown] atorvastatin 40 mg tablet 40 tab DAILY 05/08/22 [History Last Taken Unknown] duloxetine 60 mg capsule,delayed release 60 cap PO DAILY 05/08/22 [History Last Taken Unknown] aripiprazole 5 mg tablet 5 mg PO DAILY 05/26/22 [History Last Taken Unknown] multivitamin 1 tab PO DAILY #30 tabs 06/04/22 [Rx Last Taken Unknown] chlordiazepoxide HCl 25 mg capsule 25 mg PO .q4 PRN alcohol withdrawal 5 days #30 caps 11/07/22 [Rx Last Taken Unknown] Allergy/AdvReac Type Severity Reaction Status Date / Time No Known Allergies Allergy Verified 11/07/22 02:47 Family History Mother CVA (cerebral vascular accident) Father Cancer lung cancer Surgical History Hx of cholecystectomy Social History Smoking Status: Former smoker alcohol intake: former ROS ROS ED Constitutional Constitutional ED: Denies chills or fever(s) Eyes Eyes: Denies change in vision ENT ENT ED: Denies sore throat Cardiovascular Cardiovascular: Reports palpitations; Denies chest pain Respiratory/Chest Respiratory/Chest: Denies cough or dyspnea Gastrointestinal Gastrointestinal: Reports nausea; Denies abdominal pain, diarrhea or vomiting Genitourinary Genitourinary ED: Denies dysuria Musculoskeletal Musculoskeletal: Denies myalgias Integumentary Denies rash Neurologic Neurologic: Denies headache(s) Psychiatric Psychiatric: Reports anxiety; Denies suicidal ideation or suicidal thoughts Hematologic/Lymphatic Hematologic/Lymphatic: Reports easy bleeding and easy bruising EXAM Physical Exam Const Vital Signs: 11/07/22 02:45 11/07/22 04:48 Temperature 97.6 F L Temperature Source Temporal Pulse Rate 84 86 Respiratory Rate 16 17 Blood Pressure 148/91 H 142/87 H Blood Pressure Mean 110 Pulse Ox 98 95 Oxygen Delivery Method Room Air Positive well nourished and well developed General Appearance ED: well developed HEENT Reports moist mucous membranes Eyes PERRL and EOMs intact bilaterally General Eye ED: Negative for scleral icterus Neck supple Resp normal respiratory effort and clear to auscultation bilaterally Cardio regular rate and regular rhythm GI normal to inspection, nondistended, normoactive bowel sounds, non-tender and non-distended GI Narrative: No voluntary guarding or rigidity no pulsatile mass Auscultation: normoactive bowel sounds Palpation: soft Extremity normal to inspection Neuro oriented x3 and CN's II-XII intact bilaterally Sensorium / Orientation: alert Psych Psych Narrative: Patient has a nervous/anxious affect Skin no rashes or lesions noted General Skin Exam: Negative for jaundice MDM MDM MDM Narrative Medical decision making narrative: Patient presented to the ER with stable vitals and he denied any homicidal or suicidal ideation. Based on the high volume of alcohol he consumes we did discuss repeat admission to the hospital to undergo detox. Patient states he does not want to do that at this time. He is awake alert and oriented and competent to make this decision. Also his CIWA score is low at this time at a value of 5. Therefore as patient does not want to try inpatient detox I will start him on Librium and prescribe it for home so he can try outpatient treatment but he does agree to return to the hospital if he is not doing well. However as his vitals are stable he has no homicidal or suicidal ideation and does not want inpatient treatment he will be discharged home at this time Discharge Plan Triage Chief Complaint: Anxiety ED Provider: Lior Frye Dx/Rx/DC Orders Clinical Impression: Alcohol abuse, Anxiety Instructions: Alcohol Addiction, Alcohol Withdrawal: What to Expect Prescriptions: New chlordiazepoxide HCl 25 mg capsule 25 mg PO .q4 PRN (Reason: alcohol withdrawal) 5 Days Qty: 30 0RF No Action paroxetine HCl 20 mg tablet 20 mg PO DAILY Eliquis 5 mg tablet 5 mg PO BID metoprolol tartrate 100 mg tablet 100 mg PO BID duloxetine 60 mg capsule,delayed release(DR/EC) 60 cap PO DAILY atorvastatin 40 mg tablet 40 tab DAILY Label Comments: 1 tablet by mouth as directed aripiprazole 5 mg Tablet 5 mg PO DAILY multivitamin Tablet 1 tab PO DAILY Qty: 30 0RF Primary Care Provider: Graciela Ashley Referrals: Graciela Ashley, DO [Primary Care Provider] - Activity Restrictions/Additional Instructions: You have been prescribed Librium to prevent alcohol withdrawal. You may take it up to 6 times a day if needed and refrain from alcohol use while using this. If you feel like you are not tolerating the withdrawal well with the medication or have any further concerns please return to the ER for repeat evaluation Disposition Disposition: Home, Self Care
[2022-11-07] MEDS: chlordiazePOXIDE 25 MG Capsule 50 MG PO (04:43)
[2022-11-07 04:48] VITALS: BP 142/87; PULSE 86; RESP 17; O2SAT 95
== END 2022-11-07 05:18 | disposition home or self-care (01) ==
PROVIDERS: Emergency Provider Emergency Medicine; PCP Family Medicine; Visit Provider Emergency Medicine
DX: F41.9 Anxiety disorder, unspecified (principal); I48.0 Paroxysmal atrial fibrillation; I10 Essential (primary) hypertension; F10.10 Alcohol abuse, uncomplicated; Y90.9 Presence of alcohol in blood, level not specified; Z79.01 Long term (current) use of anticoagulants; Z79.899 Other long term (current) drug therapy; Z87.891 Personal history of nicotine dependence
CPT/HCPCS: 99284

== ENCOUNTER 2022-11-07 13:18 | Inpatient (IN) | payer MEDICARE, MEDICAID, SELFPAY ==
[2022-11-07] VITALS (9 sets, daily range): BP systolic 120–128; BP diastolic 69–100; PULSE 74–100; RESP 16–20; TEMP 36.4–36.9; O2SAT 94–100; BMI 36.1; BMI 34.7
--- NOTE | 2022-11-07 15:07 | EX.ED.SAOD ---
HPI History of Present Illness Chief Complaint: Substance Abuse Narrative Narrative: 72-year-old male presents for detox from alcohol. He states that he drinks at least a case of beer at its [place] on a daily basis. While he states that he has not been through detox here in the past, and review of his EMR, I saw him in May of last year when he was admitted for detox. He states he was sent to [place] for rehab, and they did not do much. He started drinking shortly thereafter again. Of note, he was seen in the emergency department last evening, and had stated that he did not want detox from alcohol to the emergency physician, so he was discharged. 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 He went home and drank again with his last beer being few hours ago. He had been told that if he wanted detox that he needed to do inpatient detox so he had his friend bring him back to the emergency department to be admitted. He denies any chest pain or shortness of breath but feels mildly anxious. [facility] Medical History Acute alcoholic gastritis without hemorrhage Alcohol dependence Alcohol withdrawal Alcoholic cardiomyopathy Atrial fibrillation, chronic Atrial flutter, paroxysmal Depression with anxiety History of acute alcoholic hepatitis History of alcoholism HTN (hypertension) Left atrial enlargement Overweight Panic disorder Home Medications apixaban 5 mg tablet (Eliquis) 5 mg PO BID blood thinner 10/03/19 [History Last Taken 11/06/22] metoprolol tartrate 100 mg tablet 100 mg PO BID bp 10/03/19 [History Last Taken 11/06/22] paroxetine HCl 20 mg tablet 20 mg PO QHS mood 10/03/19 [History Last Taken Unknown] atorvastatin 40 mg tablet 40 tab PO DAILY cholesterol 05/08/22 [History Last Taken 11/06/22] duloxetine 60 mg capsule,delayed release 60 cap PO DAILY mood 05/08/22 [History Last Taken Unknown] aripiprazole 5 mg tablet 5 mg PO DAILY mood 05/26/22 [History Last Taken 11/05/22] multivitamin 1 tab PO DAILY supplement 11/07/22 [History Last Taken 1 Week Ago ~10/31/22] Allergy/AdvReac Type Severity Reaction Status Date / Time No Known Allergies Allergy Verified 11/07/22 13:19 Family History Mother CVA (cerebral vascular accident) Father Cancer lung cancer Surgical History Hx of cholecystectomy Social History Smoking Status: Former smoker alcohol intake: former ROS ROS ED ROS Narrative Constitutional: No fever, no chills. HEENT: No sore throat. No neck pain. No loss of vision. No rhinorrhea. Cardiovascular: No chest pain. No palpitations. No pedal edema. Respiratory: No cough, no shortness of breath. Abdominal: No abdominal pain. No nausea. No vomiting. Genitourinary: No dysuria. No hematuria. Musculoskeletal: No myalgias. No arthralgias. Neurologic: No headaches. No dizziness. No lightheadedness. Skin: No rash. No change in color. Psychiatric: No depression. Mild anxiety. EXAM Physical Exam Narrative Exam Narrative: Afebrile. Vital signs noted. HEENT: Normocephalic. Atraumatic. PERRL, EOMI. Neck soft and supple. No point tenderness or step off. Cardiovascular: Regular rate and rhythm. No murmurs, rubs, or gallops appreciated. Respiratory: No tachypnea. Lungs clear to auscultation bilaterally. Gastrointestinal: Abdomen soft, nontender, with normoactive bowel sounds. No rebound or guarding. Neurological: Awake. Alert. Nonfocal, nonlateralizing. No active signs of withdrawal. Skin: No rash. Normal color. No pallor. Musculoskeletal: No pedal edema. Full range of motion extremities. Const Vital Signs: 11/07/22 13:19 11/07/22 15:00 Temperature 97.6 F L Temperature Source Temporal Pulse Rate 97 Respiratory Rate 18 18 Blood Pressure 128/97 H Blood Pressure Mean 107 Pulse Ox 100 Oxygen Delivery Method Room Air MDM MDM MDM Narrative Medical decision making narrative: Medical screening labs were obtained. Patient does not have excessively elevated blood pressure at 128/97. He is not tachycardic currently. Pulse ox is 100% on room air. I further reviewed his EMR and he had been admitted back in May 2022 for alcohol detox. I will discuss the patient with the hospitalist for admission to detox. Initially, I reviewed his CBC which shows normal white count of 8.2, hemoglobin normal at 14.8, platelet count 232. I discussed the patient with Dr. Veras for admission to medical surgical floor for detox from alcohol. Patient is in stable condition. Lab Data Attestation: I reviewed the patient's lab results. Labs: Laboratory Results - last 24 hr 11/07/22 15:05 WBC 8.2 RBC 4.16 L Hgb 14.8 Hct 42.2 MCV 101.4 H MCH 35.6 H MCHC 35.1 RDW Std Deviation 50.9 H RDW Coeff of Pati 13.5 Plt Count 232 MPV 9.9 Immature Gran % (Auto) 0.400 Neut % (Auto) 73.1 H Lymph % (Auto) 14.7 L [place] % (Auto) 9.6 Eos % (Auto) 1.7 Baso % (Auto) 0.5 Absolute Neuts (auto) 6.0 Absolute Lymphs (auto) 1.21 Nucleated RBC % 0 Discharge Plan Dx/Rx/DC Orders Clinical Impression: Desire for detoxification, Alcoholism, Anxiety Disposition Disposition: Acute Care Hospital [facility]
[2022-11-07 15:13] LABS: Absolute Lymphocyte Count 1.21 X10^3/uL (0.83-4.51); Basophil# 0.04 X10^3/uL; Basophil% 0.5 % (0-1); Eosinophil# 0.14 X10^3/uL; Eosinophils% 1.7 % (0-5); Hematocrit 42.2 % (40-54); Hemoglobin 14.8 g/dL (13.0-16.5); Lymphocyte # 1.21 X10^3/ul (0.83-4.51); Lymphocyte % 14.7 % (19-41); Mean Corp Hgb Conc 35.1 g/dL (32-36); Mean Corpuscular Hgb 35.6 pg (27.0-32.0); Mean Corpuscular Volume 101.4 fL (80-94); Mean Platelet Vol. 9.9 fl (6.2-12.0); Monocyte# 0.79 X10^3/uL; Monocyte% 9.6 % (0-10); NRBC Flagged by Analyzer 0 % (0-5); Neutrophil # 6.01 X10^3/uL (2.7-7.7); Neutrophil % 73.1 % (47-70); Platelet Count 232 K/mm3 (150-450); RBC Distribution Width CV 13.5 % (11.6-14.6); RBC Distribution Width SD 50.9 fl (35.1-43.9); Red Blood Count 4.16 M/mm3 (4.6-6.2); White Blood Count 8.2 K/mm3 (4.4-11.0)
--- NOTE | 2022-11-07 15:34 | HP.PCM.HOS_ITS ---
HPI - General General Date of Admission: 11/07/22 Date of Service: 11/07/22 Chief Complaint: Acute alcohol withdrawal HPI Narrative LANIE DELONG, is a 72 M who presented to the emergency department [facility] on 11/07/2022 requesting detox from alcohol. Patient was evidently here last night and was given Librium for detox at discharge however he was unable to fill this and decided to come back to the emergency department. He did undergo detox here in April and was discharged to [facility] for 1 time. He does not all recall his admission here. Alcohol level at time of admission was 113 and the patient indicated his last drink was this morning at about 10 AM. He admits that he drinks about 24 12 ounce beers daily (Mark). He is unable to even tell me how long he has been drinking and just dates its been a long time. At the present time he states is starting to feel little bit jittery but has no other physical complaints. He currently lives alone and is retired. Vital signs at the time of presentation show a temperature of 97.6, heart rate 74, blood pressure 126/89, respirate 16, sats are 94% on room air. His CBC shows a macrocytosis but is otherwise unremarkable. His chemistry panel shows mild hypokalemia with potassium of 3.4 but is otherwise unremarkable. His liver functions are normal. His urine tox screen is negative but his alcohol level is elevated. [facility] Medical History Acute alcoholic gastritis without hemorrhage Alcohol dependence Alcohol withdrawal Alcoholic cardiomyopathy Anxiety Atrial fibrillation, chronic Atrial flutter, paroxysmal Depression with anxiety History of acute alcoholic hepatitis History of alcoholism HTN (hypertension) Left atrial enlargement Overweight Panic disorder Home Medications apixaban 5 mg tablet (Eliquis) 5 mg PO BID blood thinner 10/03/19 [History Last Taken 11/06/22] metoprolol tartrate 100 mg tablet 100 mg PO BID bp 10/03/19 [History Last Taken 11/06/22] paroxetine HCl 20 mg tablet 20 mg PO QHS mood 10/03/19 [History Last Taken Unknown] atorvastatin 40 mg tablet 40 tab PO DAILY cholesterol 05/08/22 [History Last Taken 11/06/22] duloxetine 60 mg capsule,delayed release 60 cap PO DAILY mood 05/08/22 [History Last Taken Unknown] aripiprazole 5 mg tablet 5 mg PO DAILY mood 05/26/22 [History Last Taken 11/05/22] multivitamin 1 tab PO DAILY supplement 11/07/22 [History Last Taken 1 Week Ago ~10/31/22] Allergy/AdvReac Type Severity Reaction Status Date / Time No Known Allergies Allergy Verified 11/07/22 13:19 Family History Mother CVA (cerebral vascular accident) Father Cancer lung cancer Surgical History Hx of cholecystectomy Social History (Updated 11/07/22 @ 17:[address] Mervat Veras DO) household members: none housing: apartment Smoking Status: Former smoker alcohol intake: current alcohol intake frequency: 3 or more drinks per day details: 24 12 ounce beers daily substance use type: does not use ROS Constitutional Constitutional: Denies anorexia, change in weight, chills, fatigue, fever(s), malaise, night sweats, weakness or other Eyes Eyes: Denies blurry vision, change in eye color, change in vision, discharge from eye(s), double vision, erythema, eye pain, loss of vision or other ENT HEENT: Denies abnormal hearing, dysphagia, ear pain, epistaxis, headache(s), hearing loss, nasal congestion, nasal discharge, post nasal drip, sinus pressure, sore throat or other Cardiovascular Cardiovascular: Denies chest pain, claudication, dyspnea on exertion, edema, lightheadedness, orthopnea, palpitations, paroxysmal nocturnal dyspnea, rapid heart rate, syncope or other Respiratory/Chest Respiratory/Chest: Denies cough, dyspnea, excessive phlegm production, hemoptysis, productive cough, shortness of breath at rest, shortness of breath with exertion, wheezing or other Gastrointestinal Gastrointestinal: Denies abdominal pain, coffee ground emesis, constipation, diarrhea, dyspepsia, hematemesis, hematochezia, loose stools, melena, nausea, vomiting or other Genitourinary Genitourinary: Reports nocturia and urinary hesitancy; Denies burning urination, difficulty urinating, dysuria, hematuria, urinary frequency, urinary inco ntinence, urinary urgency or other Musculoskeletal Musculoskeletal: Denies arthralgias, back pain, joint pain, joint stiffness, joint swelling, myalgias, neck pain or other Neurologic Neurologic: Reports tremor(s); Denies abnormal gait, abnormal speech, confusion, disequilibrium, dizziness, focal weakness, headache(s), numbness, paresthesias, seizure-like activity, seizures, syncope, tingling or other Psychiatric Psychiatric: Reports anxiety and depression; Denies homicidal ideation, suicidal ideation or other Endocrine Endocrinology: Denies change in body appearance, cold intolerance, excessive s weating, heat intolerance, polydipsia, polyuria or other Hematologic/Lymphatic Hematologic/Lymphatic: Denies anemia, easy bleeding, easy bruising, lymp hadenopathy or other Allergic/Immunologic Allergic/Immunologic: Denies rhinitis, hives, eczemia, asthma or other Vital Signs Vital Signs Vital Signs: 11/07/22 13:19 11/07/22 15:00 Temperature 97.6 F L Temperature Source Temporal Pulse Rate 97 Respiratory Rate 18 18 Blood Pressure 128/97 H Blood Pressure Mean 107 Pulse Ox 100 Oxygen Delivery Method Room Air Weight Weight: 107.955 kg Body Mass Index (BMI) 36.1 Physical Exam Const alert, oriented x3, no apparent distress and well nourished Constitutional Narrative: Elderly white male sitting up in a chair at the bedside, appears mildly anxious but very pleasant, appears comfortable at this time, complaining of some mild internal tremor General Appearance: cooperative HEENT normocephalic, head/scalp atraumatic and moist oral mucous membranes HEENT Narrative: Moderate hearing loss, Mallampati is 2-3, no thrush, dentition is poor Eyes PERRL, EOMs intact bilaterally and conjunctivae normal Eyes Narrative: No scleral icterus Neck no lymphadenopathy, supple, no JVD and no carotid bruits Neck Narrative: Trachea midline, no thyroid enlargement Resp normal respiratory effort, no retractions, no use of accessory muscles and clear to auscultation bilaterally Resp Narrative: Diminished but clear Auscultation: Negative for crackles, rhonchi or wheezes Cardio regular rate, S1 normal heart sound, S2 normal heart sound, no murmurs, no rub, no gallops and no clicks Cardio Narrative: Irregular irregular rhythm GI normal to inspection, nondistended, normoactive bowel sounds, soft to palpation and non-tender Extremity no clubbing, cyanosis or edema Extremity Narrative: 2+ pedal pulses Skin no rashes or lesions noted, no wounds, skin turgor normal, no jaundice, no petechiae and no mottling Neuro oriented x3, CN's II-XII intact bilaterally, moves all extremities and no focal motor deficits Neuro Narrative: Very fine tremor noted on exam Speech: speech normal Psych Psych Narrative: Appears mildly anxious Results Medical Records Data Attestation: I reviewed the patient's medical records Lab / Micro Data Result Diagrams: 11/07/22 15:05 11/07/22 15:05 Labs: Laboratory Results - last 24 hr 11/07/22 15:05: WBC 8.2, RBC 4.16 L, Hgb 14.8, Hct 42.2, MCV 101.4 H, MCH 35.6 H , MCHC 35.1, RDW Std Deviation 50.9 H, RDW Coeff of Pati 13.5, Plt Count 232, MPV 9.9, Immature Gran % (Auto) 0.400, Neut % (Auto) 73.1 H, Lymph % (Auto) 14.7 L, Ashley % (Auto) 9.6, Eos % (Auto) 1.7, Baso % (Auto) 0.5, Absolute Neuts (auto) 6.0, Absolute Lymphs (auto) 1.21, Nucleated RBC % 0 Assessment & Plan Assessment/Plan (1) Alcohol abuse: (2) Desire for detoxification: (3) Alcoholism: (4) Alcohol withdrawal: PLAN: Plan Alcohol abuse with acute alcohol withdrawal -Drinks 24 12 ounce beers daily -Last drink was at 10 AM -Start phenobarbital taper -Thiamine and folate -Supportive medications for withdrawal symptom management -Consultation to 180 for either outpatient follow-up or residential treatment History of alcoholic cardiomyopathy -Last echocardiogram from 04/15/2022 showed an EF of 55% with a moderately enlarged left atrium and a mildly enlarged right atrium -Continue home metoprolol Hyperlipidemia -Continue home atorvastatin Paroxysmal atrial fibrillation -Home metoprolol -We will have to hold apixaban while he is on phenobarbital -Use therapeutic Lovenox until phenobarbital taper has been completed or the patient is discharged Depression -Continue home duloxetine -Continue home paroxetine -Continue home aripiprazole History of tobacco abuse -Remote -Encourage continued cessation DVT prophylaxis -Patient is on apixaban at baseline for atrial fibrillation -We will continue DOAC CODE STATUS -Full code Charges/Coding Visit Charges Inpatient E&M: 06770 Init Hosp L2
[2022-11-07 15:39] LABS: ALB/GLOB Ratio 0.9 RATIO (0.9-2.4); AST(SGOT) 21 U/L (15-37); Alanine Aminotransfer ALT/SGPT 26 U/L (16-61); Albumin, Serum 3.6 g/dL (3.2-5.0); Alkaline Phosphatase 103 U/L (45-117); Anion Gap 11 (5-15); BUN 17 mg/dL (7-18); BUN/Creat Ratio 17.6 RATIO (10-20); Chloride 108 mmol/L (98-107); Creatinine, Serum 0.96 mg/dL (0.70-1.30); EST Glomerular Filtration Rate 81 mL/min (>60); Est Glom Filt Rate - Afr Amer 98 mL/min (>60); Glucose 103 mg/dL (74-106); Potassium 3.4 mmol/L (3.5-5.1); Protein, Total 7.6 g/dL (6.4-8.2); Sodium Level 140 mmol/L (136-145)
[2022-11-07] MEDS: Phenobarbital 32.4 MG Tablet PO ×2 (17:00→20:46)
[2022-11-07 17:04] LABS: Amphetamine Urine VISTA NEGATIVE (<1000 ng/mL); Barbiturate Urine VISTA NEGATIVE (< 200 ng/mL); Benzodiazepine Urine VISTA NEGATIVE (< 200 ng/mL); Cocaine Urine VISTA NEGATIVE (< 300 ng/mL); Ecstacy Urine VISTA NEGATIVE (< 500 ng/mL); Methadone Urine VISTA NEGATIVE (< 300 ng/mL); PCP Urine VISTA NEGATIVE (< 25 ng/mL); THC Urine VISTA NEGATIVE (< 50 ng/mL); Vista UDS pH Range 5
[2022-11-07] MEDS: Potassium Chloride Oral Tablet 20 MEQ 40 MEQ PO (17:42)
[2022-11-07] MEDS: LORazepam 1 MG Tablet 2 MG PO (18:31)
[2022-11-07] MEDS: Enoxaparin 120 MG/0.8 ML Syringe 110 MG SC (20:45)
[2022-11-07] MEDS: hydrOXYzine PAM 25 MG Capsule 50 MG PO (20:46)
[2022-11-07] MEDS: traZODone 100 MG Tablet PO (20:46)
[2022-11-07] MEDS: Paroxetine 20 MG Tablet PO (20:47)
[2022-11-07] MEDS: Metoprolol Tartrate 100 MG Tablet PO (20:47)
[2022-11-08] VITALS (8 sets, daily range): BP systolic 106–154; BP diastolic 61–89; PULSE 80–105; RESP 16–18; TEMP 36.1–36.9; O2SAT 95–98
[2022-11-08] MEDS: Phenobarbital 32.4 MG Tablet PO ×6 (02:27→21:24)
[2022-11-08] MEDS: hydrOXYzine PAM 25 MG Capsule 50 MG PO (05:45)
[2022-11-08] MEDS: Thiamine Hydrochloride 100 MG Tablet PO (08:36)
[2022-11-08] MEDS: Folic Acid 1 MG Tablet PO (08:36)
[2022-11-08] MEDS: Multivitamins,Therapeutic Tablet 1 TABLET PO (08:36)
[2022-11-08] MEDS: Enoxaparin 120 MG/0.8 ML Syringe 110 MG SC ×2 (10:01→21:25)
[2022-11-08] MEDS: ARIPiprazole 5 MG Tablet PO (10:02)
[2022-11-08] MEDS: Atorvastatin Calcium 40 MG Tablet PO (10:02)
[2022-11-08] MEDS: DULoxetine Hcl 60 MG Capsule PO (10:02)
[2022-11-08] MEDS: Metoprolol Tartrate 100 MG Tablet PO ×2 (10:02→21:25)
--- NOTE | 2022-11-08 10:13 | PN.HOSP_ITS ---
Subjective Subjective CIWA score of 4, no issues overnight Objective Data Objective Data Vital Signs: Vital Signs Temp Pulse Resp BP Pulse Ox O2 Del Method 98.0 F 93 18 154/89 H 96 Room Air 11/08/22 05:47 11/08/22 10:02 11/08/22 05:47 11/08/22 05:47 11/08/22 05:47 11/08/22 05:47 Oxygen Delivery Method Room Air Weight: 235 lb Body Mass Index (BMI) 34.7 Lab / Micro Data Result Diagrams: 11/07/22 15:05 11/07/22 15:05 Labs: Laboratory Results - last 24 hr 11/07/22 15:05: WBC 8.2, RBC 4.16 L, Hgb 14.8, Hct 42.2, MCV 101.4 H, MCH 35.6 H , MCHC 35.1, RDW Std Deviation 50.9 H, RDW Coeff of Pati 13.5, Plt Count 232, MPV 9.9, Immature Gran % (Auto) 0.400, Neut % (Auto) 73.1 H, Lymph % (Auto) 14.7 L, [place] % (Auto) 9.6, Eos % (Auto) 1.7, Baso % (Auto) 0.5, Absolute Neuts (auto) 6.0, Absolute Lymphs (auto) 1.21, Nucleated RBC % 0 11/07/22 15:05: Ethyl Alcohol 113.0 11/07/22 15:05: Sodium 140, Potassium 3.4 L, Chloride 108 H, Carbon Dioxide 21.0, Anion Gap 11, BUN 17, Creatinine 0.96, Estim Creat Clear Calc 66.30, Est GFR (MDRD) Af Amer 98, Est GFR (MDRD) Non-Af 81, BUN/Creatinine Ratio 17.6, Glucose 103, Calcium 9.0, Total Bilirubin 0.40, AST 21, ALT 26, Alkaline Phosphatase 103, Total Protein 7.6, Albumin 3.6, Globulin 4.0, Albumin/Globulin Ratio 0.9 11/07/22 16:05: Urine Opiates Screen NEGATIVE, Urine Methadone Screen NEGATIVE, Ur Barbiturates Screen NEGATIVE, Ur Phencyclidine Scrn NEGATIVE, Ur Amphetamines Screen NEGATIVE, MDMA (Ecstasy) Screen NEGATIVE, U Benzodiazepines Scrn NEGATIVE, Urine Cocaine Screen NEGATIVE, U Cannabinoids Screen NEGATIVE, Ur Drug Screen Comment Physical Exam Narrative General: Alert, Oriented x3, Cooperative, No apparent distress HEENT: Atraumatic, PERRLA, EOMI, Normocephalic Oral: Moist Mucosa Neck: Supple, No JVD Lungs: Diminished, Normal air movement, No rhonchi, No wheeze, No rales Cardiovascular: Regular rate, irregular rhythm, Normal S1, Normal S2, No murmurs Abdomen: Soft, Non Tender, Non-Distended, No Hepato-splenomegaly Extremities: No edema, Capillary Refill Less than 3 Seconds Skin: No rashes, No breakdown Musculoskeletal: No Tenderness to Palpation of Joints or Extremities Neurological: Cranial nerves II-XII grossly intact, Motor Exam 5/5 strength throughout, Sensory exam intact to light touch and pain Psych/Mental Status: Anxious Assessment & Plan Assessment/Plan (1) Alcohol abuse: (2) Desire for detoxification: (3) Alcoholism: (4) Alcohol withdrawal: PLAN: Plan 1. Alcohol abuse requesting detox/history of alcoholic cardiomyopathy/depression/history of tobacco abuse ? Continue with the alcohol withdrawal protocol ? Discussed tobacco cessation ? Continue with his home Abilify, Paxil, Cymbalta ? Echo in April 2022 with an EF of 55%, can resume his home metoprolol ? We will have him follow-up with 180 as an outpatient 2. Alcoholic cardiomyopathy/paroxysmal A. fib/HTN/HLD ? Continue with his anticoagulation ? Blood stable ? Resume his home blood pressure medications ? Continue with Lipitor DVT: Eliquis Charges/Coding Visit Charges Inpatient E&M: 49254 Subs Hosp L2
--- NOTE | 2022-11-08 15:14 | CASEMGMT ---
Social Work SW notified RAMP navigator of admission. GLADIS Carbajal
[2022-11-08] MEDS: Paroxetine 20 MG Tablet PO (21:24)
[2022-11-09] VITALS (9 sets, daily range): BP systolic 112–146; BP diastolic 69–104; PULSE 64–93; RESP 16–18; TEMP 36.5–36.8; O2SAT 95–100
[2022-11-09] MEDS: hydrOXYzine PAM 25 MG Capsule 50 MG PO ×3 (01:44→21:40)
[2022-11-09] MEDS: Phenobarbital 32.4 MG Tablet PO ×6 (01:44→21:41)
[2022-11-09] MEDS: Gabapentin 300 MG Capsule PO ×2 (05:06→13:34)
[2022-11-09] MEDS: DULoxetine Hcl 60 MG Capsule PO (08:01)
[2022-11-09] MEDS: ARIPiprazole 5 MG Tablet PO (08:01)
[2022-11-09] MEDS: Folic Acid 1 MG Tablet PO (08:01)
[2022-11-09] MEDS: Multivitamins,Therapeutic Tablet 1 TABLET PO (08:01)
[2022-11-09] MEDS: Thiamine Hydrochloride 100 MG Tablet PO (08:01)
[2022-11-09] MEDS: Enoxaparin 120 MG/0.8 ML Syringe 110 MG SC ×2 (08:02→21:41)
[2022-11-09] MEDS: Metoprolol Tartrate 100 MG Tablet PO ×2 (08:02→21:40)
[2022-11-09] MEDS: Atorvastatin Calcium 40 MG Tablet PO (08:02)
--- NOTE | 2022-11-09 10:40 | ADDICTION ---
TW met with pt to complete RAMP paperwork to include ASAM, MSE, AUDIT, and DUDIT. Pt shared that transportation is a barrier to accessing treatment. Pt shared that he wants to engage in treatment services at [facility] or [facility] due to their proximity to his home. TW informed Akila, [facility] addictions therapist, of this so appointments can be scheduled during regular business hours. Pt needs transportation home as well, which was communicated to Akila. Akila will complete d/c plan with pt once appointments are scheduled.
--- NOTE | 2022-11-09 11:16 | PCM.PN.HOSP ---
Subjective Subjective Doing well, no issues overnight. CIWA of 4 Objective Data Objective Data Vital Signs: Vital Signs Temp Pulse Resp BP Pulse Ox O2 Del Method 97.8 F 90 18 146/104 H 98 Room Air 11/09/22 09:33 11/09/22 09:33 11/09/22 09:33 11/09/22 09:33 11/09/22 09:33 11/09/22 09:33 Oxygen Delivery Method Room Air Weight: 235 lb Body Mass Index (BMI) 34.7 Intake & Output: Intake and Output for Last 24 Hours 11/08/22 11/09/22 11/10/22 03:59 03:59 03:59 Intake Total 1100 / 1100 320 / 320 Balance 1100 / 1100 320 / 320 Lab / Micro Data Result Diagrams: 11/07/22 15:05 11/07/22 15:05 Physical Exam Narrative General: Alert, Oriented x3, Cooperative, No apparent distress HEENT: Atraumatic, PERRLA, EOMI, Normocephalic Oral: Moist Mucosa Neck: Supple, No JVD Lungs: Diminished, Normal air movement, No rhonchi, No wheeze, No rales Cardiovascular: Regular rate, irregular rhythm, Normal S1, Normal S2, No murmurs Abdomen: Soft, Non Tender, Non-Distended, No Hepato-splenomegaly Extremities: No edema, Capillary Refill Less than 3 Seconds Skin: No rashes, No breakdown Musculoskeletal: No Tenderness to Palpation of Joints or Extremities Neurological: Cranial nerves II-XII grossly intact, Motor Exam 5/5 strength throughout, Sensory exam intact to light touch and pain Psych/Mental Status: Anxious Assessment & Plan Assessment/Plan (1) Alcohol abuse: (2) Desire for detoxification: (3) Alcoholism: (4) Alcohol withdrawal: PLAN: Plan 1. Alcohol abuse requesting detox/history of alcoholic cardiomyopathy/depression/history of tobacco abuse ? Continue with the alcohol withdrawal protocol ? Discussed tobacco cessation ? Continue with his home Abilify, Paxil, Cymbalta ? Echo in April 2022 with an EF of 55%, can resume his home metoprolol ? We will have him follow-up with 180 as an outpatient 2. Alcoholic cardiomyopathy/paroxysmal A. fib/HTN/HLD ? Continue with his anticoagulation ? Blood stable ? Resume his home blood pressure medications ? Continue with Lipitor DVT: Therapeutic Lovenox Charges/Coding Visit Charges Inpatient E&M: 40094 Subs Hosp L2
--- NOTE | 2022-11-09 13:20 | NURSING ---
Addendum entered by Estelle Mahmood 11/09/22 13:23: Correction: fall was at 1140 Original Note: This RN was alerted by VINITA TT, that she heard a loud noise and walked in room to find pt sitting on floor beside room table at about 1100. According to pt, pt was trying to sit on table to look out the window, and the table fell. This RN took pt's vital signs and they were stable. Pt said he did not hit his head. Says he hit his elbows, L knee and bottom. social studies department chair Cristina notified.
[2022-11-09] MEDS: Paroxetine 20 MG Tablet PO (21:40)
[2022-11-10] MEDS: Phenobarbital 32.4 MG Tablet PO ×4 (01:39→19:48)
[2022-11-10] MEDS: LORazepam 1 MG Tablet 2 MG PO ×6 (02:30→23:35)
[2022-11-10 02:33] VITALS: BP 102/66; PULSE 69; RESP 18; TEMP 36.5; O2SAT 94
[2022-11-10] MEDS: Folic Acid 1 MG Tablet PO (07:41)
[2022-11-10] MEDS: ARIPiprazole 5 MG Tablet PO (07:41)
[2022-11-10] MEDS: Multivitamins,Therapeutic Tablet 1 TABLET PO (07:41)
[2022-11-10] MEDS: DULoxetine Hcl 60 MG Capsule PO (07:41)
[2022-11-10] MEDS: Atorvastatin Calcium 40 MG Tablet PO (07:41)
[2022-11-10] MEDS: Enoxaparin 120 MG/0.8 ML Syringe 110 MG SC ×2 (07:41→19:50)
[2022-11-10] MEDS: Thiamine Hydrochloride 100 MG Tablet PO (07:41)
[2022-11-10 07:42] VITALS: PULSE 95
[2022-11-10] MEDS: Metoprolol Tartrate 100 MG Tablet PO ×2 (07:42→19:49)
[2022-11-10 08:33] VITALS: BP 130/109; PULSE 83; RESP 18; TEMP 37; O2SAT 98
--- NOTE | 2022-11-10 09:24 | DCINST_ITS ---
Discharge Instructions Follow Up Care Test Results: Test results from this visit will be discussed in further detail at your follow- up appointment, if applicable. Discharge Plan Admission Admit Date/Time: 11/07/22 15:27 Attending Provider: Arsh Hunter Primary Care Provider: Graciela Ashley Consulting Providers: Mervat Veras ; Leonid Marie Discharge Orders/Prescriptions Prescriptions: No Action paroxetine HCl 20 mg tablet 20 mg PO QHS Eliquis 5 mg tablet 5 mg PO BID metoprolol tartrate 100 mg tablet 100 mg PO BID duloxetine 60 mg capsule,delayed release(DR/EC) 60 cap PO DAILY atorvastatin 40 mg tablet 40 tab PO DAILY Label Comments: 1 tablet by mouth as directed aripiprazole 5 mg Tablet 5 mg PO DAILY multivitamin Tablet 1 tab PO DAILY Referrals / Follow Up: Graciela Ashley, [Primary Care Provider] -
--- NOTE | 2022-11-10 11:16 | PCM.PN.HOSP ---
Subjective Subjective Follow-up for hallucination alcohol withdrawal syndrome. Objective Data Objective Data Vital Signs: Vital Signs Temp Pulse Resp BP Pulse Ox O2 Del Method 98.6 F 83 18 130/109 H 98 Room Air 11/10/22 08:33 11/10/22 08:33 11/10/22 08:33 11/10/22 08:33 11/10/22 08:33 11/10/22 08:58 Oxygen Delivery Method Room Air Weight: 235 lb Body Mass Index (BMI) 34.7 Intake & Output: Intake and Output for Last 24 Hours 11/08/22 11/09/22 11/10/22 23:59 23:59 23:59 Intake Total 700 / 700 720 / 720 Balance 700 / 700 720 / 720 Lab / Micro Data Result Diagrams: 11/07/22 15:05 11/07/22 15:05 Physical Exam Narrative As per patient, he is seeing rhinoceros in the room. Patient has reptiles in his home environment. t denies chronic liver disease. Physical exam General: Awake, oriented x3. Hallucinating. Abnormal behavior HEENT: Atraumatic, PERRLA, EOMI, Normocephalic Oral: No Gingival or Mucosal Lesions/ Ulcerations Neck: Supple, No JVD, Negative Carotid Bruits Lungs: Air entry diminished in bilateral lung bases. No crepitation/rhonchi Cardiovascular: Regular rate, Regular Rhythm, Normal S1, Normal S2, No murmurs Abdomen: Bowel Sounds Present, Soft, Non Tender, Non-Distended : No renal angle tenderness. No suprapubic tenderness. Extremities: No edema, Capillary Refill Less than 3 Seconds Skin: No rashes, No breakdown Musculoskeletal: No Tenderness to Palpation of Joints or Extremities Neurological: Cranial nerves II-XII grossly intact, DTR 2+/4 and Symmetrical, Neuro grossly intact Psych/Mental Status: Hallucination, abnormal behavior. Assessment & Plan Assessment/Plan (1) Alcohol abuse: (2) Desire for detoxification: (3) Alcoholism: (4) Alcohol withdrawal: PLAN: Plan This 72-year-old question gentleman is admitted with acute alcohol withdrawal syndrome. 1. Acute alcohol withdrawal syndrome with history of chronic alcohol use, dependence and tolerance: ? Continue with the alcohol withdrawal protocol ? Discussed tobacco cessation ? Continue with his home Abilify, Paxil, Cymbalta ? Echo in April 2022 with an EF of 55%, can resume his geraldo 11/10: Patient having hallucinations of rhinoceros. Discussed with the immigration case worker 180. Patient had several inpatients rehab still does not stop drinking alcohol. 2. History of chronic tobacco use, anxiety and depression 3. Alcoholic cardiomyopathy, paroxysmal A. fib, hypertension and dyslipidemia ? Continue with his anticoagulation. Blood pressure is in normal range. ? Resume his home blood pressure medications ? Continue with Lipitor DVT: Therapeutic Lovenox Charges/Coding Visit Charges Inpatient E&M: 07629 Subs Hosp L2
[2022-11-10 14:03] VITALS: BP 152/102; PULSE 97; RESP 18; TEMP 36.6; O2SAT 95
[2022-11-10 19:43] VITALS: BP 116/71; PULSE 81; RESP 18; TEMP 36.6; O2SAT 96
[2022-11-10 19:49] VITALS: BP 116/71; PULSE 81
[2022-11-10] MEDS: Paroxetine 20 MG Tablet PO (19:49)
[2022-11-11 02:57] VITALS: BP 147/100; PULSE 72; RESP 18; TEMP 36.4; O2SAT 94
[2022-11-11] MEDS: Phenobarbital 32.4 MG Tablet PO ×4 (03:03→18:34)
[2022-11-11 07:38] VITALS: BP 137/96; PULSE 87; RESP 16; TEMP 36.4; O2SAT 92
[2022-11-11] MEDS: Folic Acid 1 MG Tablet PO (07:46)
[2022-11-11 07:47] VITALS: PULSE 87
[2022-11-11] MEDS: Atorvastatin Calcium 40 MG Tablet PO (07:47)
[2022-11-11] MEDS: ARIPiprazole 5 MG Tablet PO (07:47)
[2022-11-11] MEDS: Thiamine Hydrochloride 100 MG Tablet PO (07:47)
[2022-11-11] MEDS: Multivitamins,Therapeutic Tablet 1 TABLET PO (07:47)
[2022-11-11] MEDS: DULoxetine Hcl 60 MG Capsule PO (07:47)
[2022-11-11] MEDS: Metoprolol Tartrate 100 MG Tablet PO ×2 (07:47→21:58)
[2022-11-11] MEDS: Enoxaparin 120 MG/0.8 ML Syringe 110 MG SC ×2 (11:20→22:02)
[2022-11-11 13:31] VITALS: BP 118/86; PULSE 85; RESP 16; TEMP 37.3; O2SAT 95
[2022-11-11] MEDS: LORazepam 1 MG Tablet 2 MG PO ×2 (13:36→18:34)
[2022-11-11] MEDS: Nystatin Powder 15gm Bottle 1 APPLIC TOPICAL ×2 (13:38→21:52)
--- NOTE | 2022-11-11 15:06 | PN.HOSP_ITS ---
Subjective Subjective Follow-up for acute alcohol withdrawal, hallucinations, restless trying to get out of the bed. Objective Data Objective Data Vital Signs: Vital Signs Temp Pulse Resp BP Pulse Ox O2 Del Method 99.1 F 85 16 118/86 H 95 Room Air 11/11/22 13:31 11/11/22 13:31 11/11/22 13:31 11/11/22 13:31 11/11/22 13:31 11/11/22 13:31 Oxygen Delivery Method Room Air Weight: 235 lb Body Mass Index (BMI) 34.7 Intake & Output: Intake and Output for Last 24 Hours 11/09/22 11/10/22 11/11/22 23:59 23:59 23:59 Intake Total 720 / 720 Balance 720 / 720 Lab / Micro Data Result Diagrams: 11/07/22 15:05 11/07/22 15:05 Physical Exam Narrative As per nursing staff, patient is trying to get out of the bed. Restless. Incoherent and incomprehensible speech. Physical exam General: confused, disoriented hallucinating. Abnormal behavior HEENT: Atraumatic, PERRLA, EOMI, Normocephalic Oral: No Gingival or Mucosal Lesions/ Ulcerations Neck: Supple, No JVD, Negative Carotid Bruits Lungs: Air entry diminished in bilateral lung bases. No crepitation/rhonchi Cardiovascular: Regular rate, Regular Rhythm, Normal S1, Normal S2, No murmurs Abdomen: Bowel Sounds Present, Soft, Non Tender, Non-Distended : No renal angle tenderness. No suprapubic tenderness. Extremities: No edema, Capillary Refill Less than 3 Seconds Skin: No rashes, No breakdown Musculoskeletal: No Tenderness to Palpation of Joints or Extremities, generalized tremors Neurological: Cranial nerves II-XII grossly intact, DTR 2+/4 and Symmetrical, no focal deficit Psych/Mental Status: Hallucination, abnormal behavior. Assessment & Plan Assessment/Plan (1) Alcohol abuse: (2) Desire for detoxification: (3) Alcoholism: (4) Alcohol withdrawal: PLAN: Plan This 72-year-old question gentleman is admitted with acute alcohol withdrawal syndrome. 1. Acute alcohol withdrawal syndrome with history of chronic alcohol use, dependence and tolerance: ? Continue with the alcohol withdrawal protocol ? Discussed tobacco cessation ? Continue with his home AbilifKhoi moya, Cymbalta ? Echo in April 2022 with an EF of 55%, can resume his geraldo 11/10: Patient having hallucinations of rhinoceros. Discussed with the patient case manager 180. Patient had several inpatients rehab still does not stop drinking alcohol. 11/11: Patient is on a scheduled phenobarbitone and as needed Ativan as per CIWA score. Patient also on aripiprazole, gabapentin as needed, trazodone as needed. Discontinue paroxetine. Labs ordered. 2. History of chronic tobacco use, anxiety and depression 3. Alcoholic cardiomyopathy, paroxysmal A. fib, hypertension and dyslipidemia ? Continue with his anticoagulation. Blood pressure is in normal range. ? Resume his home blood pressure medications ? Continue with Lipitor DVT: Therapeutic Lovenox Charges/Coding Visit Charges Inpatient E&M: 42288 Subs Hosp L2
[2022-11-11 17:23] LABS: Absolute Lymphocyte Count 1.09 X10^3/uL (0.83-4.51); Absolute Neutrophil Count 4.9 X10^3/uL (2.0-7.7); Basophil# 0.02 X10^3/uL; Basophil% 0.3 % (0-1); Eosinophil# 0.16 X10^3/uL; Eosinophils% 2.3 % (0-5); Hematocrit 41.6 % (40-54); Hemoglobin 14.3 g/dL (13.0-16.5); Lymphocyte # 1.09 X10^3/ul (0.83-4.51); Lymphocyte % 15.9 % (19-41); Mean Corp Hgb Conc 34.4 g/dL (32-36); Mean Platelet Vol. 10.2 fl (6.2-12.0); Monocyte% 10.2 % (0-10); NRBC Flagged by Analyzer 0 % (0-5); Neutrophil # 4.86 X10^3/uL (2.7-7.7); Neutrophil % 70.9 % (47-70); Platelet Count 219 K/mm3 (150-450); RBC Distribution Width CV 13.2 % (11.6-14.6); RBC Distribution Width SD 49.4 fl (35.1-43.9); Red Blood Count 4.08 M/mm3 (4.6-6.2); White Blood Count 6.9 K/mm3 (4.4-11.0)
[2022-11-11 18:25] LABS: ALB/GLOB Ratio 0.9 RATIO (0.9-2.4); AST(SGOT) 108 U/L (15-37); Alanine Aminotransfer ALT/SGPT 115 U/L (16-61); Albumin, Serum 3.4 g/dL (3.2-5.0); Alkaline Phosphatase 101 U/L (45-117); Anion Gap 7 (5-15); BUN 13 mg/dL (7-18); BUN/Creat Ratio 14.3 RATIO (10-20); Calcium,Total 9.1 mg/dL (8.5-10.1); Chloride 108 mmol/L (98-107); Creatinine, Serum 0.91 mg/dL (0.70-1.30); EST Glomerular Filtration Rate 87 mL/min (>60); Est Glom Filt Rate - Afr Amer 106 mL/min (>60); Globulin 3.9 g/dL (2.2-4.2); Glucose 94 mg/dL (74-106); Potassium 3.6 mmol/L (3.5-5.1); Protein, Total 7.3 g/dL (6.4-8.2); Sodium Level 140 mmol/L (136-145)
[2022-11-11 21:42] VITALS: BP 136/78; PULSE 84; RESP 20; TEMP 36.4; O2SAT 93
[2022-11-11 21:58] VITALS: BP 136/78; PULSE 84
[2022-11-12 02:23] VITALS: BP 122/76; PULSE 86; RESP 18; TEMP 36.4; O2SAT 94
[2022-11-12] MEDS: Gabapentin 300 MG Capsule PO ×2 (02:25→13:41)
[2022-11-12] MEDS: hydrOXYzine PAM 25 MG Capsule 50 MG PO ×2 (04:47→21:02)
[2022-11-12] MEDS: LORazepam 1 MG Tablet 2 MG PO (07:29)
[2022-11-12 09:33] VITALS: BP 112/73; PULSE 86; RESP 18; TEMP 36.4; O2SAT 94
[2022-11-12 09:36] VITALS: PULSE 86
[2022-11-12] MEDS: Metoprolol Tartrate 100 MG Tablet PO ×2 (09:36→21:03)
[2022-11-12] MEDS: Multivitamins,Therapeutic Tablet 1 TABLET PO (09:36)
[2022-11-12] MEDS: DULoxetine Hcl 60 MG Capsule PO (09:36)
[2022-11-12] MEDS: Thiamine Hydrochloride 100 MG Tablet PO (09:36)
[2022-11-12] MEDS: Folic Acid 1 MG Tablet PO (09:36)
[2022-11-12] MEDS: Atorvastatin Calcium 40 MG Tablet PO (09:36)
[2022-11-12] MEDS: ARIPiprazole 5 MG Tablet PO (09:36)
[2022-11-12] MEDS: Enoxaparin 120 MG/0.8 ML Syringe 110 MG SC ×2 (09:37→21:02)
[2022-11-12] MEDS: Nystatin Powder 15gm Bottle 1 APPLIC TOPICAL ×2 (09:38→21:03)
--- NOTE | 2022-11-12 09:53 | PN.HOSP_ITS ---
Subjective Subjective Follow-up for acute alcohol withdrawal. Patient is still has hallucination, confused and disoriented. #Tremors. No seizures Objective Data Objective Data Vital Signs: Vital Signs Temp Pulse Resp BP Pulse Ox O2 Del Method 97.6 F L 86 18 112/73 94 Room Air 11/12/22 09:33 11/12/22 09:36 11/12/22 09:33 11/12/22 09:33 11/12/22 09:33 11/12/22 09:33 Oxygen Delivery Method Room Air Weight: 235 lb Body Mass Index (BMI) 34.7 Intake & Output: Intake and Output for Last 24 Hours 11/10/22 11/11/22 11/12/22 23:59 23:59 23:59 Intake Total 200 / 200 200 / 200 Balance 200 / 200 200 / 200 Lab / Micro Data Result Diagrams: 11/11/22 17:14 11/11/22 17:14 Labs: Laboratory Results - last 24 hr 11/11/22 17:14: WBC 6.9, RBC 4.08 L, Hgb 14.3, Hct 41.6, MCV 102.0 H, MCH 35.0 H , MCHC 34.4, RDW Std Deviation 49.4 H, RDW Coeff of Pati 13.2, Plt Count 219, MPV 10.2, Immature Gran % (Auto) 0.400, Neut % (Auto) 70.9 H, Lymph % (Auto) 15.9 L, [place] % (Auto) 10.2 H, Eos % (Auto) 2.3, Baso % (Auto) 0.3, Absolute Neuts (auto) 4.9, Absolute Lymphs (auto) 1.09, Nucleated RBC % 0 11/11/22 17:14: Sodium 140, Potassium 3.6, Chloride 108 H, Carbon Dioxide 25.0, Anion Gap 7, BUN 13, Creatinine 0.91, Estim Creat Clear Calc 72.30, Est GFR (MDRD) Af Amer 106, Est GFR (MDRD) Non-Af 87, BUN/Creatinine Ratio 14.3, Glucose 94, Calcium 9.1, Phosphorus 4.0, Magnesium 2.0, Total Bilirubin 0.60, AST 108 H, ALT 115 H, Alkaline Phosphatase 101, Total Protein 7.3, Albumin 3.4, Globulin 3.9, Albumin/Globulin Ratio 0.9 Physical Exam Narrative As per nursing staff, patient is trying to get out of the bed. Confused and disoriented. Incoherent and incomprehensible speech. Physical exam General: confused, disoriented hallucinating. Abnormal behavior HEENT: Atraumatic, PERRLA, EOMI, Normocephalic Oral: No Gingival or Mucosal Lesions/ Ulcerations Neck: Supple, No JVD, Negative Carotid Bruits Lungs: Air entry diminished in bilateral lung bases. No crepitation/rhonchi Cardiovascular: Regular rate, Regular Rhythm, Normal S1, Normal S2, No murmurs Abdomen: Bowel Sounds Present, Soft, Non Tender, Non-Distended : No renal angle tenderness. No suprapubic tenderness. Extremities: No edema, Capillary Refill Less than 3 Seconds Skin: No rashes, No breakdown Musculoskeletal: No Tenderness to Palpation of Joints or Extremities, generalized tremors Neurological: Cranial nerves II-XII grossly intact, DTR 2+/4 and Symmetrical, no focal deficit Psych/Mental Status: Hallucination, abnormal behavior. Assessment & Plan Assessment/Plan (1) Alcohol abuse: (2) Desire for detoxification: (3) Alcoholism: (4) Alcohol withdrawal: PLAN: Plan This 72-year-old question gentleman is admitted with acute alcohol withdrawal syndrome. 1. Acute alcohol withdrawal syndrome with history of chronic alcohol use, d ependence and tolerance: ? Continue with the alcohol withdrawal protocol ? Discussed tobacco cessation ? Continue with his home Khoi Mora Cymbalta ? Echo in April 2022 with an EF of 55%, can resume his geraldo 11/10: Patient having hallucinations of rhinoceros. Discussed with the continuous pillowcase cutter Brianne. Patient had several inpatients rehab still does not stop drinking alcohol. 11/11: Patient is on a scheduled phenobarbitone and as needed Ativan as per CIWA score. Patient also on aripiprazole, gabapentin as needed, trazodone as needed. Discontinue paroxetine. Labs ordered. 11/12: Confused and disoriented. Patient is scheduled phenobarbitone. Discussed with Brianne Tompkins manager combination inpatient substance facilities would not accept him as he had signed out AMA in the past and he still has hallucinations. Difficult discharge. 2. History of chronic tobacco use, anxiety and depression 3. Alcoholic cardiomyopathy, paroxysmal A. fib, hypertension and dyslipidemia ? Continue with his anticoagulation. Blood pressure is in normal range. ? Resume his home blood pressure medications ? Continue with Lipitor DVT: Therapeutic Lovenox Charges/Coding Visit Charges Inpatient E&M: 83295 Subs Hosp L2
[2022-11-12 14:04] VITALS: BP 140/96; PULSE 89; RESP 18; TEMP 36.6; O2SAT 95
[2022-11-12] MEDS: Lactulose 20 GM/30 ML UDC 10 GM PO ×2 (16:57→21:03)
[2022-11-12 21:00] VITALS: BP 127/90; PULSE 82; RESP 16; TEMP 36.6; O2SAT 92
[2022-11-12] MEDS: traZODone 100 MG Tablet PO (21:02)
[2022-11-12 21:03] VITALS: BP 127/90; PULSE 82
[2022-11-13 02:37] VITALS: BP 134/81; PULSE 91; RESP 16; TEMP 36.6; O2SAT 98
[2022-11-13 07:00] VITALS: O2SAT 95
--- NOTE | 2022-11-13 09:05 | PCM.PN.HOSP ---
Objective Data Objective Data Vital Signs: Vital Signs Temp Pulse Resp BP Pulse Ox O2 Del Method 97.9 F 91 16 134/81 H 95 Room Air 11/13/22 02:37 11/13/22 02:37 11/13/22 02:37 11/13/22 02:37 11/13/22 07:00 11/13/22 07:00 Oxygen Delivery Method Room Air Weight: 235 lb Body Mass Index (BMI) 34.7 Intake & Output: Intake and Output for Last 24 Hours 11/11/22 11/12/22 11/13/22 23:59 23:59 23:59 Intake Total 200 / 200 200 / 200 Balance 200 / 200 200 / 200 Lab / Micro Data Result Diagrams: 11/11/22 17:14 11/11/22 17:14 Labs: Laboratory Results - last 24 hr 11/12/22 14:20: Ammonia 34.0 H
[2022-11-13] MEDS: Lactulose 20 GM/30 ML UDC 10 GM PO (09:07)
[2022-11-13 09:08] VITALS: PULSE 82
[2022-11-13] MEDS: Metoprolol Tartrate 100 MG Tablet PO (09:08)
[2022-11-13] MEDS: Atorvastatin Calcium 40 MG Tablet PO (09:08)
[2022-11-13] MEDS: DULoxetine Hcl 60 MG Capsule PO (09:08)
[2022-11-13] MEDS: ARIPiprazole 5 MG Tablet PO (09:08)
[2022-11-13] MEDS: Nystatin Powder 15gm Bottle 1 APPLIC TOPICAL (09:08)
[2022-11-13] MEDS: Folic Acid 1 MG Tablet PO (09:08)
[2022-11-13] MEDS: Multivitamins,Therapeutic Tablet 1 TABLET PO (09:08)
[2022-11-13] MEDS: Thiamine Hydrochloride 100 MG Tablet PO (09:08)
[2022-11-13 09:15] VITALS: BP 148/111; PULSE 82; RESP 18; TEMP 36.4; O2SAT 97
--- NOTE | 2022-11-13 09:42 | DCINST_ITS ---
Discharge Instructions Diet Discharge Diet: Low fat / Low cholesterol Activity Discharge Activity: Return to Normal Activity Dressing / Incision Call your doctor if you observe: Fever of 101 or Higher, Coldness, Increased Pain, Numbness or Tingling, Change in Color, Inability to urinate, Inability to have a bowel movement, Shortness of breath, Dizziness, Fainting spells, Swelling in the ankles, Chest pain and Calf discomfort Follow Up Care Test Results: Test results from this visit will be discussed in further detail at your follow- up appointment, if applicable. Discharge Plan Admission Admit Date/Time: 11/07/22 15:27 Primary Reason for Your Visit: Acute alcohol withdrawal syndrome Attending Provider: Arsh Hunter Primary Care Provider: Graciela Ashley Consulting Providers: Mervat Veras ; Leonid Marie Discharge Orders/Prescriptions Prescriptions: New thiamine HCl (vitamin B1) [Vitamin B-1] 100 mg Tablet 100 mg PO DAILYCM Qty: 30 2RF folic acid 1 mg Tablet 1 mg PO BREAKFAST Qty: 30 2RF Continued paroxetine HCl 20 mg tablet 20 mg PO QHS Eliquis 5 mg tablet 5 mg PO BID metoprolol tartrate 100 mg tablet 100 mg PO BID duloxetine 60 mg capsule,delayed release(DR/EC) 60 cap PO DAILY atorvastatin 40 mg tablet 40 tab PO DAILY Label Comments: 1 tablet by mouth as directed aripiprazole 5 mg Tablet 5 mg PO DAILY multivitamin Tablet 1 tab PO DAILY Referrals / Follow Up: Graciela Ashley DO [Primary Care Provider] - Disposition Disposition (needs filled in before D/C Order can be placed): Home, Self Care
--- NOTE | 2022-11-13 10:27 | CASEMGMT ---
Social Work MS3 Collaboration with SRINIVAS Christian on 11.12.2022 regarding potential discharge planning needs outside of the [facility] program. It is reported patient is disoriented and having hallucinations. Patient reportedly lives alone, would not be a safe discharge home in patient's current state. Discussed need that if cognitive status does not improve may need to look at alternative options, but issue is who would be able to help with decision making if patient with disorientation and confusion. Prior medical records reviewed and noted patient was at [facility] in May 2022 with similar issues, extended withdrawal period and discharge plan to [facility] for short term skilled care. At that time a friend Rafael Del Valle was noted, as well as patient having a brother and a sister who both live out of town. From chart review patient has no children, so siblings would be the next of kin and decision makers for this patient, and were contacted during the May 2022 stay. In light of documented concerns regarding disorientation and cognitive status, potential need for a short term alternate decision maker if patient cannot participate in care, this web content writer called the brother Roby Mccabe to verify contact information. Roby answered the phone, verified contact for self and for patient's sister Shanell. Bill expressed worry for patient, as has not heard from patient in over a week, was to the point of considering need to drive to [place]. Roby reports patient has had addiction for many years and has been in and out of nursing facilities. Roby reports he and patient's sister Shanell keep in regular phone contact with the patient. Roby expressed that would like for patient to call Bill when patient is able, and will come up to [place] if needed. Noted in shift clinical findings that patient's orientation seems to be improved this date, 11.13.22. Met with patient in room and introduced to self and role. Patient alert and oriented to person, place, month, and year. Patient expressed belief that has been in the hospital for a week, which is close as the patient was admitted on 11.07.22. This web content writer updated call to brother had been placed based on patient's cognitive status, and attempting to determine next of kin if patient had not cleared up. Patient expressed that talks to siblings regularly, but doesn't like to bother family. Roby is older and Shanell is younger. Discussed that this web content writer updated emergency contact information, reviewing importance to have an emergency contact in place. Explored whether there are any friends patient may want listed, and patient said that everyone has moved away. Emotional support offered. Educated patient that when patients are confused and disoriented, without known support, sometimes it comes to going to court for guardianship to help with aftercare decision making or even decision making while in the hospital. Educated that having known next of kin can be helpful to reduce risk for need of court involvement. Let patient know that Bill would like patient to call. Patient declined. Offered to call Bill back and let Bill know patient is doing okay and likely to discharge home today. Patient declined and stated if this web content writer doesn't have to call Bill then don't. This web content writer agreed does not have to call Bill as patient is doing better and is now able to participate in own treatment. Explored whether patient has any concern with housing, access to food, or concerns about going home (versus a SNF). Patient reported no concerns and does not feel a SNF is needed this time. Updated MS3 SW Celia Harry. Received call from [facility] asking that if patient can have visitors. Update given on status of visitors, that patient is doing better so will not need to involve family in any emergent planning. Bill reports will wait and see if patient reaches out in the next few days and respect patient's desire for privacy. Plan: Anticipate discharge home with aftercare set as per [facility] program/Addiction therapist. BRANT Alcantar
[2022-11-13] MEDS: Enoxaparin 120 MG/0.8 ML Syringe 110 MG SC (11:23)
--- NOTE | 2022-11-13 11:44 | DS.PCM_ITS ---
Providers Date of Admission: 11/07/22 Date of Discharge: 11/13/22 Primary Care Physician: Graciela Ashley DO Reason For Visit: ALCOHOL WITHDRAWAL/DETOX Diagnosis Discharge Diagnosis (1) Alcohol abuse: Status: Deleted Code(s): F10.10 - Alcohol abuse, uncomplicated (2) Desire for detoxification: Status: Acute (3) Alcoholism: Status: Acute Code(s): F10.20 - Alcohol dependence, uncomplicated (4) Alcohol withdrawal: Status: Acute Code(s): F10.939 - Alcohol use, unspecified with withdrawal, unspecified Plan This 72-year-old question gentleman is admitted with acute alcohol withdrawal syndrome. 1.? Acute alcohol withdrawal syndrome with history of chronic alcohol use, dependence and tolerance: ? ? Continue with the alcohol withdrawal protocol ? Discussed tobacco cessation ? Continue with his home Abilify, Paxil, Cymbalta ? Echo in April 2022 with an EF of 55%, can resume his geraldo 11/10: Patient having hallucinations of rhinoceros.? Discussed with the case manager specialist Brianne.? Patient had several inpatients rehab still does not stop drinking alcohol. 11/11: Patient is on a scheduled phenobarbitone and as needed Ativan as per CIWA score.? Patient also on aripiprazole, gabapentin as needed, trazodone as needed.? Discontinue paroxetine.? Labs ordered. 11/12: Confused and disoriented.? Patient is scheduled phenobarbitone.? Discussed with Brianne Tompkins applications project manager inpatient substance facilities would not accept him as he had signed out AMA in the past and he still has hallucinations.? 11/13: Patient ammonia was slightly elevated and patient was started on lactulose. With 2 doses patient got much better. Today he is coherent, comprehensible, alert, oriented x3. Speech make sense. Patient is discharged home. Advised follow-up outpatient with 180. Discharged on thiamine and folic acid. 2.? History of chronic tobacco use, anxiety and depression 3.? Alcoholic cardiomyopathy, paroxysmal A. fib, hypertension and dyslipidemia ? Continue with his anticoagulation.? Blood pressure is in normal range. ? Resume his home blood pressure medications ? Continue with Lipitor Follow-up with manager strategy. DVT: Therapeutic Lovenox Medications at Discharge Home Medications apixaban 5 mg tablet (Eliquis) 5 mg PO BID blood thinner 10/03/19 metoprolol tartrate 100 mg tablet 100 mg PO BID bp 10/03/19 paroxetine HCl 20 mg tablet 20 mg PO QHS mood 10/03/19 atorvastatin 40 mg tablet 40 tab PO DAILY cholesterol 05/08/22 duloxetine 60 mg capsule,delayed release 60 cap PO DAILY mood 05/08/22 aripiprazole 5 mg tablet 5 mg PO DAILY mood 05/26/22 multivitamin 1 tab PO DAILY supplement 11/07/22 folic acid 1 mg tablet 1 mg PO BREAKFAST #30 tabs 11/13/22 thiamine HCl (vitamin B1) 100 mg tablet (Vitamin B-1) 100 mg PO DAILYCM #30 tabs 11/13/22 Physical Exam Narrative Physical exam General:?Alert, awake, oriented x3. Coherent speech. HEENT: Atraumatic, PERRLA, EOMI, Normocephalic Oral: Oral mucosa moist. No Gingival or Mucosal Lesions/ Ulcerations Neck: Supple, No JVD, Negative Carotid Bruits Lungs:? Air entry diminished in bilateral lung bases.? No crepitation/rhonchi Cardiovascular: Regular rate, Regular Rhythm, Normal S1, Normal S2, No murmurs Abdomen: Bowel Sounds Present, Soft, Non Tender, Non-Distended : No renal angle tenderness.? No suprapubic tenderness. Extremities: No edema, Capillary Refill Less than 3 Seconds Skin: No rashes, No breakdown Musculoskeletal: No Tenderness to Palpation of Joints or Extremities, generalized tremors Neurological: Cranial nerves II-XII grossly intact, DTR? 2+/4 and Symmetrical, no focal deficit Psych/Mental Status: Normal affect. Weight / BMI Weight Weight: 235 lb Body Mass Index (BMI) 34.7 ABG / Lab / Microbiology Data Result Diagrams: 11/11/22 17:14 11/11/22 17:14 Laboratory: Laboratory Results - last 24 hr 11/12/22 14:20: Ammonia 34.0 H D/C Instructions Discharge Diet: Low fat / Low cholesterol Call your doctor if you observe: Fever of 101 or Higher, Coldness, Increased Juan Alberto n, Numbness or Tingling, Change in Color, Inability to urinate, Inability to have a bowel movement, Shortness of breath, Dizziness, Fainting spells, Swelling in the ankles, Chest pain and Calf discomfort Please Follow Up With: Mike Brown MD When: in 1 month for history of alcoholic cardiomyopathy and paroxysmal A. fib. Meaningful Use Info Meaningful Use Diagnoses (Choose all that apply): None applicable Discharge Plan Admission Admit Date/Time: 11/07/22 15:27 Primary Reason for Your Visit: Acute alcohol withdrawal syndrome Attending Provider: Arsh Hunter Primary Care Provider: Graciela Ashley Consulting Providers: Mervat Veras ; Leonid Marie Discharge Orders/Prescriptions Prescriptions: New thiamine HCl (vitamin B1) [Vitamin B-1] 100 mg Tablet 100 mg PO DAILYCM Qty: 30 2RF folic acid 1 mg Tablet 1 mg PO BREAKFAST Qty: 30 2RF Continued paroxetine HCl 20 mg tablet 20 mg PO QHS Eliquis 5 mg tablet 5 mg PO BID metoprolol tartrate 100 mg tablet 100 mg PO BID duloxetine 60 mg capsule,delayed release(DR/EC) 60 cap PO DAILY atorvastatin 40 mg tablet 40 tab PO DAILY Label Comments: 1 tablet by mouth as directed aripiprazole 5 mg Tablet 5 mg PO DAILY multivitamin Tablet 1 tab PO DAILY Referrals / Follow Up: Graciela Ashley DO [Primary Care Provider] - Disposition Disposition (needs filled in before D/C Order can be placed): Home, Self Care Charges/Coding Visit Charges Inpatient E&M: 67025 Disch Hosp >30min
[2022-11-13 13:30] VITALS: BP 124/84; PULSE 88; RESP 18; TEMP 36.6; O2SAT 96
== END 2022-11-13 14:00 | disposition home or self-care (01) | DRG 897 ==
LOC: ED 15:36 → MS3 11-08 07:01
PROVIDERS: Admitting Provider Internal Medicine; Emergency Provider Emergency Medicine; PCP Family Medicine; Visit Provider Internal Medicine
DX: F10.232 Alcohol dependence with withdrawal with perceptual disturbance (principal); I42.6 Alcoholic cardiomyopathy; I48.0 Paroxysmal atrial fibrillation; F41.8 Other specified anxiety disorders; I10 Essential (primary) hypertension; E78.5 Hyperlipidemia, unspecified; Z79.01 Long term (current) use of anticoagulants; Z87.891 Personal history of nicotine dependence; Z79.899 Other long term (current) drug therapy; Y90.5 Blood alcohol level of 100-119 mg/100 ml
CPT/HCPCS: 36415; 80053; 80307; 82077; 82140; 83735; 84100; 85025; 99252; 99284; A4216; G0463

== ENCOUNTER 2022-11-30 17:19 | Inpatient (IN) | payer MEDICARE, MEDICAID, SELFPAY ==
[2022-11-30 17:21] VITALS: BP 169/101; PULSE 94; RESP 16; TEMP 36.4; O2SAT 97; BMI 35.2
--- NOTE | 2022-11-30 17:37 | EX.ED.SAOD ---
HPI History of Present Illness Chief Complaint: Substance Abuse Informant: patient Narrative Narrative: Patient presenting asking for detox. States he was last in detox over a month ago, and he regrettably did not do the outpatient therapy and relapsed quickly. He drinks about a case of beer per day, his last drink was maybe 7 hours ago, and he is starting to feel withdrawal symptoms. He wants to stop drinking. He does not do any other substances. He is not have any suicidal ideation, no recent illness, but he is having some diffuse abdominal cramping, nausea no vomiting, no bright red blood per rectum or melena, has not been diagnosed with cirrhosis in the past. He does not know all of his medical history or medications. He denies bleeding from anywhere recently. He has chronic issues urinating, trouble making a good stream of urine and has to sit in order to get urine out usually, he states none of that is new or different. [facility] Medical History Acute alcoholic gastritis without hemorrhage Alcohol dependence Alcohol withdrawal Alcoholic cardiomyopathy Alcoholism Anxiety Atrial fibrillation, chronic Atrial flutter, paroxysmal Depression with anxiety Desire for detoxification History of acute alcoholic hepatitis History of alcoholism HTN (hypertension) Left atrial enlargement Overweight Panic disorder Home Medications metoprolol tartrate 100 mg tablet 100 mg PO BID bp 10/03/19 [History Last Taken 11/06/22] paroxetine HCl 20 mg tablet 20 mg PO QHS mood 10/03/19 [History Last Taken Unknown] atorvastatin 40 mg tablet 40 tab PO DAILY cholesterol 05/08/22 [History Last Taken 11/06/22] duloxetine 60 mg capsule,delayed release 60 cap PO DAILY mood 05/08/22 [History Last Taken Unknown] aripiprazole 5 mg tablet 5 mg PO DAILY mood 05/26/22 [History Last Taken 11/05/22] folic acid 1 mg tablet 1 mg PO BREAKFAST #30 tabs 11/13/22 [Rx Last Taken Unknown] thiamine HCl (vitamin B1) 100 mg tablet (Vitamin B-1) 100 mg PO DAILYCM #30 tabs 11/13/22 [Rx Last Taken Unknown] amlodipine 10 mg tablet 5 mg PO DAILY 11/30/22 [History Last Taken Unknown] Allergy/AdvReac Type Severity Reaction Status Date / Time No Known Allergies Allergy Verified 11/07/22 13:19 Family History Mother CVA (cerebral vascular accident) Father Cancer lung cancer Surgical History Hx of cholecystectomy Social History household members: none housing: apartment Smoking Status: Former smoker alcohol intake: current alcohol intake frequency: 3 or more drinks per day details: 24 12 ounce beers daily substance use type: does not use ROS ROS ED Constitutional Constitutional ED: Reports malaise; Denies chills or fever(s) Eyes Eyes: Denies change in vision or diplopia ENT ENT ED: Denies rhinorrhea or sore throat Cardiovascular Cardiovascular: Denies chest pain or palpitations Respiratory/Chest Respiratory/Chest: Denies cough or dyspnea Gastrointestinal Gastrointestinal: Reports abdominal pain and nausea; Denies diarrhea or vomiting Genitourinary Genitourinary ED: Denies dysuria or hematuria Musculoskeletal Musculoskeletal: Denies back pain or neck pain Integumentary Denies abscess or rash Neurologic Neurologic: Denies confusion, headache(s), paresthesias, seizures or weakness Psychiatric Psychiatric: Reports anxiety; Denies suicidal ideation or suicidal thoughts EXAM Physical Exam Const Vital Signs: 11/30/22 17:21 Temperature 97.5 F L Temperature Source Temporal Pulse Rate 94 Respiratory Rate 16 Blood Pressure 169/101 H Blood Pressure Mean 123 Pulse Ox 97 Oxygen Delivery Method Room Air Positive well nourished and well developed Constitutional Narrative: Tremulous and anxious General Appearance ED: well developed and NAD HEENT Reports moist mucous membranes normocephalic and atraumatic Eyes PERRL and EOMs intact bilaterally Neck full ROM and supple Resp normal respiratory effort and clear to auscultation bilaterally Cardio regular rate, regular rhythm and no murmurs GI non-tender and non-distended Auscultation: normoactive bowel sounds Palpation: soft; Negative for hepatomegaly or splenomegaly Back/Spine no CVA tenderness General Back: other FROM Extremity normal to inspection General Extremety ED: Negative for edema, pulses abnormal or tenderness General Extremity: Negative for edema or pulses abnormal Neuro oriented x3, CN's II-XII intact bilaterally and no sensory deficits noted Sensorium / Orientation: awake and alert Motor Exam: strength 5/5 throughout Psych thought process normal Mood & Affect: anxious Skin no rashes or lesions noted and no wounds MDM MDM MDM Narrative Medical decision making narrative: Patient was treated with IV fluids, Zofran, phenobarbital. He is feeling little better. He has had no alcohol withdrawal seizures or delirium thus far. In reviewing old records from hospital discharge summary, it appears that he was discharged from the hospital 2-3 weeks ago, not 1-2 months ago. Will discuss with Dr. Carlton hospitalist for potential readmission and detox. Lab Data Attestation: I reviewed the patient's lab results. Labs: Laboratory Results - last 24 hr 11/30/22 11/30/22 11/30/22 18:27 18:27 18:27 WBC 8.6 RBC 4.20 L Hgb 14.9 Hct 42.2 MCV 100.5 H MCH 35.5 H MCHC 35.3 RDW Std Deviation 48.8 H RDW Coeff of Pati 13.2 Plt Count 244 MPV 10.5 Immature Gran % (Auto) 0.400 Neut % (Auto) 68.8 Lymph % (Auto) 18.3 L [place] % (Auto) 9.3 Eos % (Auto) 2.6 Baso % (Auto) 0.6 Absolute Neuts (auto) 5.9 Absolute Lymphs (auto) 1.57 Nucleated RBC % 0 PT 12.9 INR 1.0 Sodium 142 Potassium 4.1 Chloride 108 H Carbon Dioxide 24.0 Anion Gap 10 BUN 19 H Creatinine 0.94 Estim Creat Clear Calc 69.99 Est GFR (MDRD) Af Amer 101 Est GFR (MDRD) Non-Af 83 BUN/Creatinine Ratio 20.2 H Glucose 92 Calcium 9.1 Total Bilirubin 0.50 AST 29 ALT 38 Alkaline Phosphatase 114 Total Protein 7.7 Albumin 3.6 Globulin 4.1 Albumin/Globulin Ratio 0.9 Ur Drug Screen Comment Ethyl Alcohol 11/30/22 11/30/22 18:27 19:25 WBC RBC Hgb Hct MCV MCH MCHC RDW Std Deviation RDW Coeff of Pati Plt Count MPV Immature Gran % (Auto) Neut % (Auto) Lymph % (Auto) [place] % (Auto) Eos % (Auto) Baso % (Auto) Absolute Neuts (auto) Absolute Lymphs (auto) Nucleated RBC % PT INR Sodium Potassium Chloride Carbon Dioxide Anion Gap BUN Creatinine Estim Creat Clear Calc Est GFR (MDRD) Af Amer Est GFR (MDRD) Non-Af BUN/Creatinine Ratio Glucose Calcium Total Bilirubin AST ALT Alkaline Phosphatase Total Protein Albumin Globulin Albumin/Globulin Ratio Ur Drug Screen Comment Ethyl Alcohol 7.0 Discharge Plan Dx/Rx/DC Orders Clinical Impression: Alcohol dependence, Alcohol withdrawal Disposition Disposition: Acute Care Hospital [facility]
[2022-11-30] MEDS: Ondansetron 4 MG/2 ML Vial IV (18:32)
[2022-11-30] MEDS: 0.9% Normal Saline 1,000 ML 999 ML IV (18:32)
[2022-11-30] MEDS: Phenobarbital 32.4 MG Tablet 97.2 MG PO (18:32)
[2022-11-30 18:40] LABS: Absolute Lymphocyte Count 1.57 X10^3/uL (0.83-4.51); Absolute Neutrophil Count 5.9 X10^3/uL (2.0-7.7); Basophil# 0.05 X10^3/uL; Basophil% 0.6 % (0-1); Eosinophil# 0.22 X10^3/uL; Eosinophils% 2.6 % (0-5); Hematocrit 42.2 % (40-54); Hemoglobin 14.9 g/dL (13.0-16.5); Lymphocyte # 1.57 X10^3/ul (0.83-4.51); Lymphocyte % 18.3 % (19-41); Mean Corp Hgb Conc 35.3 g/dL (32-36); Mean Corpuscular Hgb 35.5 pg (27.0-32.0); Mean Corpuscular Volume 100.5 fL (80-94); Mean Platelet Vol. 10.5 fl (6.2-12.0); Monocyte% 9.3 % (0-10); NRBC Flagged by Analyzer 0 % (0-5); Neutrophil # 5.89 X10^3/uL (2.7-7.7); Neutrophil % 68.8 % (47-70); Platelet Count 244 K/mm3 (150-450); RBC Distribution Width CV 13.2 % (11.6-14.6); RBC Distribution Width SD 48.8 fl (35.1-43.9); White Blood Count 8.6 K/mm3 (4.4-11.0)
[2022-11-30 18:57] LABS: Albumin, Serum 3.6 g/dL (3.2-5.0); BUN 19 mg/dL (7-18); BUN/Creat Ratio 20.2 RATIO (10-20); Creatinine, Serum 0.94 mg/dL (0.70-1.30); EST Glomerular Filtration Rate 83 mL/min (>60); Est Glom Filt Rate - Afr Amer 101 mL/min (>60); Estimated Creatinine Clearance 69.99 ml/min; Globulin 4.1 g/dL (2.2-4.2); Glucose 92 mg/dL (74-106); Protein, Total 7.7 g/dL (6.4-8.2); Prothrombin Time (Protime)PT. 12.9 SECONDS (11.7-14.9)
[2022-11-30 18:58] LABS: ALB/GLOB Ratio 0.9 RATIO (0.9-2.4); AST(SGOT) 29 U/L (15-37); Alanine Aminotransfer ALT/SGPT 38 U/L (16-61); Alkaline Phosphatase 114 U/L (45-117); Anion Gap 10 (5-15); Calcium,Total 9.1 mg/dL (8.5-10.1); Chloride 108 mmol/L (98-107); Potassium 4.1 mmol/L (3.5-5.1); Sodium Level 142 mmol/L (136-145)
--- NOTE | 2022-11-30 19:27 | HP.PCM.HOS_ITS ---
HPI - General General Date of Admission: 11/30/22 Date of Service: 11/30/22 Chief Complaint: Acute EtOH Withdrawal HPI Narrative The patient is a 72 y/o M w/ PMHx: EtOH Cardiomyopathy, PAF/Flutter, HTN, HLD, Former Tobacco use, Anxiety and Depression/panic disorder, GERD with history of alcoholic gastritis without hemorrhage, recent discharge on 11/13/22 following treatment for acute alcohol withdrawal with history of several inpatient rehab admissions and unfortunately continues to drink with mild hyperammonia requiring increased lactulose regimen who now represents to [facility] ED on 11/30/20 with history of failure to start outpatient therapy with quick relapse with resumption of approximate 10-12, 12 ounce beers per day with last drink approximately 7 hours prior to ED presentation with onset of withdrawal symptoms reporting mild diffuse abdominal cramping with nausea without emesis, tremors, agitation as well as tactile disturbances. Despite patient's significant history of quick relapse despite outpatient programs and inpatient rehab settings. In the ED despite patient administration of medications for his severe symptoms of withdrawal still feeling profoundly tremulous and states he feels as though he is jumping out of a skin work-up in the ED included T97.5, heart rate 94, BP 169/101, respiratory rate 16, 97% on room air, CBC with WC 8.6, human 14.9, platelet 244 without marked shift, unremarkable coags, CMP with chloride 108, BUN 19/creatinine 0.94 otherwise not marked appearing, unremarkable hepatic profile, ethyl alcohol level 7.0. In the ED patient administered 1 L normal saline bolus, Zofran 4 mg IV x1 and phenobarbital 97.2 mg p.o. x1. [facility] Medical History Acute alcoholic gastritis without hemorrhage Alcohol dependence Alcohol withdrawal Alcoholic cardiomyopathy Alcoholism Anxiety Atrial fibrillation, chronic Atrial flutter, paroxysmal Depression with anxiety Desire for detoxification History of acute alcoholic hepatitis History of alcoholism HTN (hypertension) Left atrial enlargement Overweight Panic disorder Home Medications metoprolol tartrate 100 mg tablet 100 mg PO BID bp 10/03/19 [History Last Taken 11/06/22] paroxetine HCl 20 mg tablet 20 mg PO QHS mood 10/03/19 [History Last Taken Unknown] atorvastatin 40 mg tablet 40 tab PO DAILY cholesterol 05/08/22 [History Last Taken 11/06/22] duloxetine 60 mg capsule,delayed release 60 cap PO DAILY mood 05/08/22 [History Last Taken Unknown] aripiprazole 5 mg tablet 5 mg PO DAILY mood 05/26/22 [History Last Taken 11/05/22] folic acid 1 mg tablet 1 mg PO BREAKFAST #30 tabs 11/13/22 [Rx Last Taken Unknown] thiamine HCl (vitamin B1) 100 mg tablet (Vitamin B-1) 100 mg PO DAILYCM #30 tabs 11/13/22 [Rx Last Taken Unknown] amlodipine 10 mg tablet 5 mg PO DAILY 11/30/22 [History Last Taken Unknown] Allergy/AdvReac Type Severity Reaction Status Date / Time No Known Allergies Allergy Verified 11/07/22 13:19 Family History Mother CVA (cerebral vascular accident) Father Cancer lung cancer Surgical History Hx of cholecystectomy Social History household members: none housing: apartment Smoking Status: Former smoker alcohol intake: current alcohol intake frequency: 3 or more drinks per day details: 24 12 ounce beers daily substance use type: does not use ROS ROS Narrative Admission Review of Systems: CONSTITUTIONAL: No weight loss, fever, chills, + weakness or fatigue. HEENT: Eyes: No visual loss, blurred vision, double vision or yellow sclerae. Ears, Nose, Throat: No hearing loss, sneezing, congestion, runny nose or sore throat. SKIN: No rash or itching, lesions, wounds. CARDIOVASCULAR: No chest pain, chest pressure or chest discomfort, palpitations, edema, orthopnea, syncopal events. RESPIRATORY: No shortness of breath, cough or sputum, wheezing, hemoptysis. GASTROINTESTINAL: + anorexia, nausea without vomiting, No diarrhea, abdominal pain, melena, BRBPR. GENITOURINARY: No dysuria, frequency, urgency or retention. NEUROLOGICAL: + Tremors, restlessness, tactile disturbances. No headache, dizziness, syncope, paralysis, ataxia, numbness or tingling in the extremities, focal weakness, change in bowel or bladder control, seizure. MUSCULOSKELETAL: + muscle, back pain, joint pain or stiffness. HEMATOLOGIC: + Easy bleeding or bruising. LYMPHATICS: No enlarged nodes. No history of splenectomy. PSYCHIATRIC: + history of depression or anxiety. ENDOCRINOLOGIC: No reports of sweating, cold or heat intolerance. No polyuria or polydipsia. ALLERGIES: No history of asthma, hives, eczema or rhinitis. Vital Signs Vital Signs Vital Signs: 11/30/22 17:21 Temperature 97.5 F L Temperature Source Temporal Pulse Rate 94 Respiratory Rate 16 Blood Pressure 169/101 H Blood Pressure Mean 123 Pulse Ox 97 Oxygen Delivery Method Room Air Weight Weight: 238 lb 1.588 oz Body Mass Index (BMI) 35.2 Physical Exam Narrative Physical Examination: General: Awake, alert, oriented x 3 and cooperative, extremely restless, moving from bed to chair, notes still significant tactile disturbances, obvious tremors Skin: Normal color, normal turgor, no icterus, no cyanosis except occasional staged ecchymoses and bilateral lower extremity venous stasis skin change. HEENT: AT/NC, EOMI, PERRLA, dry MM, no carotid bruits or JVD noted. Lungs: Diminished, greater bases, appropriate effort, no rales, ronchi or whe ezing. Heart: currently tachycardic with regularrhythm; no gallop, rub audible. Abdomen: Soft, obese, NTTP, ND, hyperactive BS, positive HM. Extremities: No cyanosis, no clubbing, pedal to mid wren edema, not markedly pitting. Neurological: Patient awake, alert, oriented as noted, cognitive function appears currently baseline intact but extremely restless and agitated; pupils equally reactive to light and accommodation, cranial nerves II-XII grossly normal, moving all 4 extremities, no focal deficits, strength moderately globally decreased secondary to acute presentation, very tremulous, admitting tactile disturbances Psychiatric: Affect appears restless, mildly agitated, anxious, no acute evidence of depressive feelings. Results Lab / Micro Data Result Diagrams: 11/30/22 18:27 11/30/22 18:27 Labs: Laboratory Results - last 24 hr 11/30/22 18:27: WBC 8.6, RBC 4.20 L, Hgb 14.9, Hct 42.2, MCV 100.5 H, MCH 35.5 H , MCHC 35.3, RDW Std Deviation 48.8 H, RDW Coeff of Pati 13.2, Plt Count 244, MPV 10.5, Immature Gran % (Auto) 0.400, Neut % (Auto) 68.8, Lymph % (Auto) 18.3 L, [place] % (Auto) 9.3, Eos % (Auto) 2.6, Baso % (Auto) 0.6, Absolute Neuts (auto) 5.9, Absolute Lymphs (auto) 1.57, Nucleated RBC % 0 11/30/22 18:27: PT 12.9, INR 1.0 11/30/22 18:27: Sodium 142, Potassium 4.1, Chloride 108 H, Carbon Dioxide 24.0, Anion Gap 10, BUN 19 H, Creatinine 0.94, Estim Creat Clear Calc 69.99, Est GFR (MDRD) Af Amer 101, Est GFR (MDRD) Non-Af 83, BUN/Creatinine Ratio 20.2 H, Glucose 92, Calcium 9.1, Total Bilirubin 0.50, AST 29, ALT 38, Alkaline Phosphatase 114, Total Protein 7.7, Albumin 3.6, Globulin 4.1, Albumin/Globulin Ratio 0.9 11/30/22 18:27: Ethyl Alcohol 7.0 Assessment & Plan Assessment/Plan (1) Alcohol withdrawal: PLAN: Plan The patient is a 72 y/o M w/ PMHx: EtOH Cardiomyopathy, PAF/Flutter, HTN, HLD, Former Tobacco use, Anxiety and Depression/panic disorder, GERD with history of alcoholic gastritis without hemorrhage, recent discharge on 11/13/22 following treatment for acute alcohol withdrawal with history of several inpatient rehab admissions and unfortunately continues to drink with mild hyperammonia requiring increased lactulose regimen who now represents to the [facility] ED on 11/30/20 with history of failure to start outpatient therapy with quick relapse with resumption of approximate 10 beers per day with last drink approximately 7 hours prior to ED presentation with onset of withdrawal symptoms. #1. Acute EtOH Withdrawal: Will admit to [facility], routine labs obtained in the ED upon presentation, recent admission as noted with discharge on 11/13/2022 for acute alcohol withdrawal complicated by mild hyperammonia levels requiring increase lactulose regimen. Given interest in sobriety with again current presentation, will initiate and continue on protocol with taper course of Phenobarbital, scheduled gabapentin for seizure prophylaxis, as needed Catapres, Bentyl, Vistaril, IV fluids, IV antiemetics, Tylenol as needed for pain. Will consult Case management for assistance for transition to next level of reha bilitation care. Mag, phos pending. Maintain on CIWA protocol concurrently. #2. Suspected underlying Chronic alcoholic cirrhotic disease with recent prior admission hyperammonia w/ encephalopathy: No reported specific cirrhotic disease in the chart, no abdominal imaging studies performed, recommend strongly sobriety and GI evaluation and follow-up, will maintain on apixaban, metoprolol, statin therapy, given recent hyperammonia levels will check ammonia upon admission and initiate lactulose regimen as needed. #3. Chronic alcoholic cardiomyopathy: We will continue patient home apixaban, metoprolol, statin therapy, not on FLACO inhibitor or ARB. 04/15/2022 echocardiogram with normal LV systolic function, EF 55%, moderately enlarged LA, mildly enlarged RA, mild to moderate MVI, mild to moderate TVI, mild PVI. #4. Anxiety and depression/panic disorder: We will continue patient home aripi prazole, paroxetine regimen, clarifying is also listed as being on duloxetine as well. #5. Hypertension: Continue home regimen including metoprolol, amlodipine, PRN hydralazine. #6. Hyperlipidemia: Continue patient statin therapy. #7. PAF/Flutter: We will continue patient home metoprolol and apixaban regimen. #8. Former Tobacco Abuse: Encouraged cessation, inpatient consultation per RT, NR if desired. #9. GERD with history of alcoholic gastritis without hemorrhage: We will maintain on PPI. #10. DVT prophylaxis: Will continue patient home apixaban regimen. Admission Evaluation Time spent evaluating chart, patient history, patient evaluation, care planning and discussion with specialists: 75 minutes. Charges/Coding Visit Charges Inpatient E&M: 33194 Init Hosp L3
[2022-11-30 19:44] VITALS: BP 169/97; PULSE 106; RESP 22; TEMP 36.6; O2SAT 97
[2022-11-30 19:55] LABS: Amphetamine Urine VISTA NEGATIVE (<1000 ng/mL); Barbiturate Urine VISTA POSITIVE (< 200 ng/mL); Benzodiazepine Urine VISTA NEGATIVE (< 200 ng/mL); Cocaine Urine VISTA NEGATIVE (< 300 ng/mL); Ecstacy Urine VISTA NEGATIVE (< 500 ng/mL); Methadone Urine VISTA NEGATIVE (< 300 ng/mL); PCP Urine VISTA NEGATIVE (< 25 ng/mL); THC Urine VISTA NEGATIVE (< 50 ng/mL); Vista UDS pH Range 7
[2022-11-30 20:18] LABS: Magnesium 2.2 mg/dL (1.6-2.6); Phosphorus 3.5 mg/dL (2.5-4.9)
[2022-11-30 21:39] VITALS: BMI 33.0
[2022-11-30 22:09] VITALS: BP 143/96; PULSE 104; RESP 18; TEMP 37; O2SAT 96
[2022-11-30 22:16] VITALS: BP 143/96; PULSE 104
[2022-11-30] MEDS: Phenobarbital 32.4 MG Tablet PO (22:16)
[2022-11-30] MEDS: Lactated Ringers 1,000 ML 125 ML IV (22:16)
[2022-11-30] MEDS: Paroxetine 20 MG Tablet PO (22:16)
[2022-11-30] MEDS: Metoprolol Tartrate 100 MG Tablet PO (22:16)
[2022-11-30] MEDS: traZODone 100 MG Tablet PO (22:57)
[2022-11-30] MEDS: hydrOXYzine PAM 25 MG Capsule 50 MG PO (22:57)
[2022-11-30] MEDS: 0.9% Saline Lock 10 ML Syringe IV (22:58)
[2022-12-01] VITALS (8 sets, daily range): BP systolic 119–150; BP diastolic 82–100; PULSE 83–102; RESP 16–20; TEMP 36.5–36.8; O2SAT 94–95
[2022-12-01] MEDS: Phenobarbital 32.4 MG Tablet PO ×6 (01:43→20:56)
[2022-12-01] MEDS: 0.9% Saline Lock 10 ML Syringe IV (06:08)
[2022-12-01] MEDS: Folic Acid 1 MG Tablet PO (07:35)
[2022-12-01] MEDS: Thiamine Hydrochloride 100 MG Tablet PO (07:36)
[2022-12-01] MEDS: Metoprolol Tartrate 100 MG Tablet PO ×2 (09:49→20:56)
[2022-12-01] MEDS: ARIPiprazole 5 MG Tablet PO (09:49)
[2022-12-01] MEDS: DULoxetine Hcl 60 MG Capsule PO (09:49)
[2022-12-01] MEDS: amLODIPine 5 MG Tablet PO (09:50)
--- NOTE | 2022-12-01 15:32 | ADDICTION ---
This bid writer met with PT to conduct ASAM, MSE, AUDIT, DUDIT assessments and to plan for d/c. PT A+Ox4 and participated actively. All assessments completed, faxed to [facility] and placed in PT's chart. PT plans to f/u with individual counselor at [facility] for outpatient treatment services. PT did not indicate a need for transportation post d/c from [facility].
--- NOTE | 2022-12-01 15:51 | PN.HOSP_ITS ---
Subjective Subjective Patient was seen and met today, he is resting quietly, he states he wants to get off alcohol. Objective Data Objective Data Vital Signs: Vital Signs Temp Pulse Resp BP Pulse Ox O2 Del Method 98.3 F 94 18 119/88 H 95 Room Air 12/01/22 12:04 12/01/22 12:04 12/01/22 12:04 12/01/22 12:04 12/01/22 12:04 12/01/22 12:04 Oxygen Delivery Method Room Air Weight: 101.5 kg Body Mass Index (BMI) 33.0 Intake & Output: Intake and Output for Last 24 Hours 11/29/22 11/30/22 12/01/22 23:59 23:59 23:59 Intake Total 1000 / 1000 1850 / 1850 Balance 1000 / 1000 1850 / 1850 Lab / Micro Data Result Diagrams: 11/30/22 18:27 11/30/22 18:27 Labs: Laboratory Results - last 24 hr 11/30/22 18:27: WBC 8.6, RBC 4.20 L, Hgb 14.9, Hct 42.2, MCV 100.5 H, MCH 35.5 H , MCHC 35.3, RDW Std Deviation 48.8 H, RDW Coeff of Pati 13.2, Plt Count 244, MPV 10.5, Immature Gran % (Auto) 0.400, Neut % (Auto) 68.8, Lymph % (Auto) 18.3 L, [place] % (Auto) 9.3, Eos % (Auto) 2.6, Baso % (Auto) 0.6, Absolute Neuts (auto) 5.9, Absolute Lymphs (auto) 1.57, Nucleated RBC % 0 11/30/22 18:27: PT 12.9, INR 1.0 11/30/22 18:27: Sodium 142, Potassium 4.1, Chloride 108 H, Carbon Dioxide 24.0, Anion Gap 10, BUN 19 H, Creatinine 0.94, Estim Creat Clear Calc 69.99, Est GFR (MDRD) Af Amer 101, Est GFR (MDRD) Non-Af 83, BUN/Creatinine Ratio 20.2 H, Glucose 92, Calcium 9.1, Total Bilirubin 0.50, AST 29, ALT 38, Alkaline Phosphatase 114, Total Protein 7.7, Albumin 3.6, Globulin 4.1, Albumin/Globulin Ratio 0.9 11/30/22 18:27: Ethyl Alcohol 7.0 11/30/22 18:27: Phosphorus 3.5, Magnesium 2.2 11/30/22 19:25: Urine Opiates Screen NEGATIVE, Urine Methadone Screen NEGATIVE, Ur Barbiturates Screen POSITIVE H, Ur Phencyclidine Scrn NEGATIVE, Ur A mphetamines Screen NEGATIVE, MDMA (Ecstasy) Screen NEGATIVE, U Benzodiazepines Scrn NEGATIVE, Urine Cocaine Screen NEGATIVE, U Cannabinoids Screen NEGATIVE, Ur Drug Screen Comment 11/30/22 21:05: Ammonia 19.0 Physical Exam Const alert, oriented x3, no apparent distress and average body habitus General Appearance: cooperative, well kempt and well developed Orientation / Consciousness: awake, oriented to person, oriented to place and oriented to time HEENT normocephalic, head/scalp atraumatic and moist oral mucous membranes Eyes PERRL, EOMs intact bilaterally and conjunctivae normal Neck supple, no JVD, thyroid normal and no carotid bruits General: trachea midline Resp normal respiratory effort, no retractions, no use of accessory muscles and clear to auscultation bilaterally Auscultation: Negative for rales, rhonchi or wheezes Cardio regular rate, regular rhythm, S1 normal heart sound, S2 normal heart sound, no murmurs, no rub and no gallops GI normal to inspection, nondistended, normoactive bowel sounds, soft to palpation, non-tender and non-distended Extremity no clubbing, cyanosis or edema Skin no rashes or lesions noted General Skin Exam: no breakdown Neuro oriented x3, CN's II-XII intact bilaterally, moves all extremities, no focal motor deficits and no sensory deficits noted Sensorium / Orientation: awake, alert, oriented to person, oriented to place and oriented to time Speech: speech normal Psych affect normal Assessment & Plan Assessment/Plan (1) Alcohol withdrawal: PLAN: Plan 1. Alcohol withdrawal-patient is minimally symptomatic at this time, continue present medications as outlined previously #2 chronic alcoholism-complicates care, medical course, recovery, and prognosis #3 essential hypertension-patient will remain on his present blood pressure medications #4 chronic depression-patient is currently on Cymbalta, Abilify, and Paxil #5 hyperlipidemia-patient is presently on atorvastatin Total clinical time spent by myself addressing the patient's medical issues, reviewing all the data, and collaborating with patient's care team: 35 minutes Charges/Coding Visit Charges Inpatient E&M: 73584 Subs Hosp L2
[2022-12-01] MEDS: Paroxetine 20 MG Tablet PO (20:55)
[2022-12-01] MEDS: Atorvastatin Calcium 40 MG Tablet PO (20:55)
[2022-12-01] MEDS: traZODone 100 MG Tablet PO (20:56)
[2022-12-02] MEDS: Phenobarbital 32.4 MG Tablet PO ×6 (00:58→20:56)
[2022-12-02 02:20] VITALS: BP 127/85; PULSE 82; RESP 16; TEMP 36.6; O2SAT 94
[2022-12-02] MEDS: hydrOXYzine PAM 25 MG Capsule 50 MG PO ×3 (03:21→20:26)
[2022-12-02] MEDS: Gabapentin 300 MG Capsule PO ×2 (03:21→20:26)
[2022-12-02] MEDS: LORazepam 1 MG Tablet 2 MG PO ×2 (03:29→08:12)
[2022-12-02] MEDS: Folic Acid 1 MG Tablet PO (08:12)
[2022-12-02] MEDS: Thiamine Hydrochloride 100 MG Tablet PO (08:12)
[2022-12-02 08:16] VITALS: BP 111/94; PULSE 89; RESP 18; TEMP 36.6; O2SAT 99
[2022-12-02 09:45] VITALS: PULSE 89
[2022-12-02] MEDS: DULoxetine Hcl 60 MG Capsule PO (09:45)
[2022-12-02] MEDS: ARIPiprazole 5 MG Tablet PO (09:45)
[2022-12-02] MEDS: Metoprolol Tartrate 100 MG Tablet PO ×2 (09:45→20:26)
[2022-12-02] MEDS: amLODIPine 5 MG Tablet PO (09:45)
[2022-12-02 12:30] VITALS: BP 117/75; PULSE 87; RESP 16; TEMP 36.8; O2SAT 97
--- NOTE | 2022-12-02 15:59 | PN.HOSP_ITS ---
Subjective Subjective Patient was seen and examined today, he is delusional, he appears to be going through DTs, at this time the DTs do not appear to be severe. Patient is still directable. Objective Data Objective Data Vital Signs: Vital Signs Temp Pulse Resp BP Pulse Ox O2 Del Method 98.2 F 87 16 117/75 97 Room Air 12/02/22 12:30 12/02/22 12:30 12/02/22 12:30 12/02/22 12:30 12/02/22 12:30 12/02/22 15:19 Oxygen Delivery Method Room Air Weight: 101.5 kg Body Mass Index (BMI) 33.0 Intake & Output: Intake and Output for Last 24 Hours 11/30/22 12/01/22 12/02/22 23:59 23:59 23:59 Intake Total 1000 / 1000 2530 / 2530 700 / 700 Balance 1000 / 1000 2530 / 2530 700 / 700 Lab / Micro Data Result Diagrams: 11/30/22 18:27 11/30/22 18:27 Physical Exam Const alert and no apparent distress Constitutional Narrative: Patient is confused, he is directable General Appearance: cooperative, well kempt and well developed Orientation / Consciousness: awake HEENT normocephalic, head/scalp atraumatic and moist oral mucous membranes Eyes PERRL, EOMs intact bilaterally and conjunctivae normal Neck supple, no JVD, thyroid normal and no carotid bruits General: trachea midline Resp normal respiratory effort, no retractions, no use of accessory muscles and clear to auscultation bilaterally Auscultation: Negative for rales, rhonchi or wheezes Cardio regular rate, regular rhythm, S1 normal heart sound, S2 normal heart sound, no murmurs, no rub and no gallops GI normal to inspection, nondistended, normoactive bowel sounds, soft to palpation, non-tender and non-distended Extremity normal to inspection and no clubbing, cyanosis or edema Skin no rashes or lesions noted General Skin Exam: no breakdown Neuro CN's II-XII intact bilaterally, no focal motor deficits and no sensory deficits noted Neuro Narrative: Patient appears confused, he is directable Sensorium / Orientation: awake and alert Speech: speech normal Psych Psych Narrative: Patient is confused Assessment & Plan Assessment/Plan (1) Alcohol withdrawal: PLAN: Plan 1. Acute alcohol withdrawal with DTs-continue present medications, patient is receiving Ativan as needed #2 chronic alcoholism-affects care, medical course, recovery, and prognosis- patient will need to talk with addiction outreach and education social worker when he is more alert and not confused Clinical time spent by myself addressing the patient's medical issues, reviewing the data, and collaborating with patient's care team: 37 minutes Charges/Coding Visit Charges Inpatient E&M: 25319 Subs Hosp L2
[2022-12-02 20:26] VITALS: BP 147/91; PULSE 84; RESP 18; TEMP 36.6; O2SAT 94
[2022-12-02] MEDS: traZODone 100 MG Tablet PO (20:26)
[2022-12-02] MEDS: Atorvastatin Calcium 40 MG Tablet PO (20:26)
[2022-12-02] MEDS: Paroxetine 20 MG Tablet PO (20:27)
[2022-12-02] MEDS: Nystatin Powder 15gm Bottle 1 APPLIC TOPICAL (21:25)
[2022-12-03] VITALS (9 sets, daily range): BP systolic 131–152; BP diastolic 89–95; PULSE 80–89; RESP 16–20; TEMP 36.6; O2SAT 93–99
[2022-12-03] MEDS: hydrOXYzine PAM 25 MG Capsule 50 MG PO ×2 (01:19→08:47)
[2022-12-03] MEDS: Phenobarbital 32.4 MG Tablet PO ×5 (01:19→22:54)
[2022-12-03] MEDS: Nystatin Powder 15gm Bottle 1 APPLIC TOPICAL ×3 (05:25→20:13)
[2022-12-03] MEDS: Folic Acid 1 MG Tablet PO (08:45)
[2022-12-03] MEDS: Metoprolol Tartrate 100 MG Tablet PO ×2 (08:46→20:12)
[2022-12-03] MEDS: ARIPiprazole 5 MG Tablet PO (08:46)
[2022-12-03] MEDS: amLODIPine 5 MG Tablet PO (08:46)
[2022-12-03] MEDS: Thiamine Hydrochloride 100 MG Tablet PO (08:46)
[2022-12-03] MEDS: DULoxetine Hcl 60 MG Capsule PO (08:46)
[2022-12-03] MEDS: Gabapentin 300 MG Capsule PO (08:47)
--- NOTE | 2022-12-03 10:56 | PN.HOSP_ITS ---
Subjective Subjective Patient was seen and examined today, he still remains confused but he does not appear agitated. He seems to know the year but does not know he is in the hospital. His Ativan was discontinued due to concerns it was making him too groggy and sedated, he remains on phenobarb at this time. Objective Data Objective Data Vital Signs: Vital Signs Temp Pulse Resp BP Pulse Ox O2 Del Method 97.9 F 83 18 139/91 H 93 Room Air 12/03/22 08:51 12/03/22 09:00 12/03/22 08:51 12/03/22 08:51 12/03/22 08:51 12/03/22 08:51 Oxygen Delivery Method Room Air Weight: 101.5 kg Body Mass Index (BMI) 33.0 Intake & Output: Intake and Output for Last 24 Hours 12/01/22 12/02/22 12/03/22 23:59 23:59 23:59 Intake Total 2530 / 2530 1500 / 1500 Balance 2530 / 2530 1500 / 1500 Lab / Micro Data Result Diagrams: 11/30/22 18:27 11/30/22 18:27 Physical Exam Narrative Const alert and no apparent distress Constitutional Narrative: Patient is confused, he is directable General Appearance: cooperative, well kempt and well developed Orientation / Consciousness: awake HEENT normocephalic, head/scalp atraumatic and moist oral mucous membranes Eyes PERRL, EOMs intact bilaterally and conjunctivae normal Neck supple, no JVD, thyroid normal and no carotid bruits General: trachea midline Resp normal respiratory effort, no retractions, no use of accessory muscles and clear to auscultation bilaterally Auscultation: Negative for rales, rhonchi or wheezes Cardio regular rate, regular rhythm, S1 normal heart sound, S2 normal heart sound, no murmurs, no rub and no gallops GI normal to inspection, nondistended, normoactive bowel sounds, soft to palpation, non-tender and non-distended Extremity normal to inspection and no clubbing, cyanosis or edema Skin no rashes or lesions noted General Skin Exam: no breakdown Neuro CN's II-XII intact bilaterally, no focal motor deficits and no sensory deficits noted Neuro Narrative: Patient appears confused, he is directable Sensorium / Orientation: Patient is lethargic Speech: speech normal Psych Psych Narrative: Patient is confused Assessment & Plan Assessment/Plan (1) Alcohol withdrawal: PLAN: Plan 1. Acute alcohol withdrawal with DTs-continue present medications, patient is not agitated at this time #2 chronic alcoholism-affects care, medical course, recovery, and prognosis- patient will need to talk with addiction social media job titles when he is more alert and not confused Clinical time spent by myself addressing the patient's medical issues, reviewing the data, and collaborating with patient's care team: 36 minutes Charges/Coding Visit Charges Inpatient E&M: 89128 Subs Hosp L2
--- NOTE | 2022-12-03 12:27 | NURSING ---
left foot dressing partially saturated, wound nurse at bedside and partial dressing replaced (down to original surgical)-and multiple ABD's , kerlix and blake wrap replaced-foot elevated on pillows
--- NOTE | 2022-12-03 12:34 | NURSING ---
surgeon notified of bleeding from surgical site and made aware of partial drsg change, elevation of RLE-orders to hold lovenox for today
[2022-12-03] MEDS: Menthol/Lanolin/Calamine/Znox 113 GM Tube 1 APPLIC TOPICAL ×2 (14:07→22:54)
[2022-12-03] MEDS: Paroxetine 20 MG Tablet PO (20:12)
[2022-12-03] MEDS: 0.9% Saline Lock 10 ML Syringe IV (20:13)
[2022-12-03] MEDS: Atorvastatin Calcium 40 MG Tablet PO (20:13)
[2022-12-03] MEDS: traZODone 100 MG Tablet PO (20:16)
[2022-12-03] MEDS: LORazepam 1 MG Tablet 2 MG PO (20:18)
[2022-12-04] VITALS (8 sets, daily range): BP systolic 120–144; BP diastolic 89–96; PULSE 66–89; RESP 18–20; TEMP 36.4–37.1; O2SAT 94–97
[2022-12-04] MEDS: Phenobarbital 32.4 MG Tablet PO ×4 (04:58→23:37)
[2022-12-04] MEDS: Menthol/Lanolin/Calamine/Znox 113 GM Tube 1 APPLIC TOPICAL ×3 (04:59→20:29)
[2022-12-04] MEDS: Nystatin Powder 15gm Bottle 1 APPLIC TOPICAL ×3 (04:59→20:27)
[2022-12-04] MEDS: ARIPiprazole 5 MG Tablet PO (09:35)
[2022-12-04] MEDS: Folic Acid 1 MG Tablet PO (09:35)
[2022-12-04] MEDS: Thiamine Hydrochloride 100 MG Tablet PO (09:36)
[2022-12-04] MEDS: amLODIPine 5 MG Tablet PO (09:36)
[2022-12-04] MEDS: DULoxetine Hcl 60 MG Capsule PO (09:36)
[2022-12-04] MEDS: Metoprolol Tartrate 100 MG Tablet PO ×2 (09:36→20:17)
[2022-12-04] MEDS: hydrOXYzine PAM 25 MG Capsule 50 MG PO ×2 (11:24→23:37)
[2022-12-04] MEDS: Gabapentin 300 MG Capsule PO (11:24)
--- NOTE | 2022-12-04 14:31 | PCM.PN.HOSP ---
Subjective Subjective She was seen and examined today, he still is confused, he does not appear agitated. He is able to feed himself with some difficulty. Objective Data Objective Data Vital Signs: Vital Signs Temp Pulse Resp BP Pulse Ox O2 Del Method 98.7 F 80 18 120/96 H 94 Room Air 12/04/22 10:50 12/04/22 10:50 12/04/22 10:50 12/04/22 10:50 12/04/22 10:50 12/04/22 10:50 Oxygen Delivery Method Room Air Weight: 101.5 kg Body Mass Index (BMI) 33.0 Intake & Output: Intake and Output for Last 24 Hours 12/02/22 12/03/22 12/04/22 23:59 23:59 23:59 Intake Total 1500 / 1500 1250 / 1250 500 / 500 Balance 1500 / 1500 1250 / 1250 500 / 500 Lab / Micro Data Result Diagrams: 11/30/22 18:27 11/30/22 18:27 Physical Exam Narrative alert and no apparent distress Constitutional Narrative: Patient is confused, he is directable General Appearance: cooperative, well kempt and well developed Orientation / Consciousness: awake HEENT normocephalic, head/scalp atraumatic and moist oral mucous membranes Eyes PERRL, EOMs intact bilaterally and conjunctivae normal Neck supple, no JVD, thyroid normal and no carotid bruits General: trachea midline Resp normal respiratory effort, no retractions, no use of accessory muscles and clear to auscultation bilaterally Auscultation: Negative for rales, rhonchi or wheezes Cardio regular rate, regular rhythm, S1 normal heart sound, S2 normal heart sound, no murmurs, no rub and no gallops GI normal to inspection, nondistended, normoactive bowel sounds, soft to palpation, non-tender and non-distended Extremity normal to inspection and no clubbing, cyanosis or edema Skin no rashes or lesions noted General Skin Exam: no breakdown Neuro CN's II-XII intact bilaterally, no focal motor deficits and no sensory deficits noted Neuro Narrative: Patient appears confused, he is directable Sensorium / Orientation: Patient is lethargic Speech: speech normal Psych Psych Narrative: Patient is confused Assessment & Plan Assessment/Plan (1) Alcohol withdrawal: PLAN: Plan 1. Acute alcohol withdrawal with DTs-continue present medications, patient is not agitated at this time, discharge planning will be difficult at this time because the patient is confused #2 chronic alcoholism-affects care, medical course, recovery, and prognosis-patient will need to talk with addiction social media community manager when he is more alert and not confused Clinical time spent by myself addressing the patient's medical issues, reviewing the data, and collaborating with patient's care team: 35 minutes Charges/Coding Visit Charges Inpatient E&M: 19259 Subs Hosp L2
[2022-12-04] MEDS: Phenobarbital Sodium 65 MG/ML Vial 100 MG IM (15:21)
[2022-12-04] MEDS: Atorvastatin Calcium 40 MG Tablet PO (20:17)
[2022-12-04] MEDS: Paroxetine 20 MG Tablet PO (20:20)
[2022-12-04] MEDS: traZODone 100 MG Tablet PO (23:37)
[2022-12-05] VITALS (7 sets, daily range): BP systolic 112–130; BP diastolic 81–92; PULSE 74–97; RESP 18–22; TEMP 36.3–36.8; O2SAT 95–96
[2022-12-05] MEDS: Menthol/Lanolin/Calamine/Znox 113 GM Tube 1 APPLIC TOPICAL ×2 (03:17→14:05)
[2022-12-05] MEDS: Nystatin Powder 15gm Bottle 1 APPLIC TOPICAL ×3 (03:17→21:07)
[2022-12-05] MEDS: ARIPiprazole 5 MG Tablet PO (09:34)
[2022-12-05] MEDS: Thiamine Hydrochloride 100 MG Tablet PO (09:34)
[2022-12-05] MEDS: amLODIPine 5 MG Tablet PO (09:34)
[2022-12-05] MEDS: Folic Acid 1 MG Tablet PO (09:35)
[2022-12-05] MEDS: DULoxetine Hcl 60 MG Capsule PO (09:35)
[2022-12-05] MEDS: Metoprolol Tartrate 100 MG Tablet PO ×2 (09:35→21:07)
--- NOTE | 2022-12-05 10:34 | ADDICTION ---
Met with patient today to discuss d/c planning. Pt appears to be having auditory hallucinations as evidence by reporting that he is dizzy from falling at work yesterday. Pt is currently not working. Pt has been under [facility] care since 11/30. [facility] clinician will check in over the weekend.
--- NOTE | 2022-12-05 14:42 | CASEMGMT ---
Social Work Pt continues to be confused. SW reviewed pt chart and contact information for pt brother Roby Mccabe and Sister Shanell Gray obtained. Demographic sheet updated. On previous visits family was contacted and involved with care. On last visit pt preferred to make own decisions. SW will continue to follow along for discharge planning when pt becomes more alert oriented. PRISCILLA Yin
--- NOTE | 2022-12-05 15:03 | PCM.PN.HOSP ---
Subjective Subjective Patient was seen and examined today, he remains confused and lethargic, I have decided to decrease his phenobarb at this time. I am concerned that the patient will not be able to return home due to his confusion, this creates a problem and he may need a guardian appointed for him to make decisions. Objective Data Objective Data Vital Signs: Vital Signs Temp Pulse Resp BP Pulse Ox O2 Del Method 98.3 F 74 18 112/81 H 96 Room Air 12/05/22 14:46 12/05/22 14:46 12/05/22 14:46 12/05/22 14:46 12/05/22 14:46 12/05/22 14:47 Oxygen Delivery Method Room Air Weight: 101.5 kg Body Mass Index (BMI) 33.0 Intake & Output: Intake and Output for Last 24 Hours 12/03/22 12/04/22 12/05/22 23:59 23:59 23:59 Intake Total 1250 / 1250 600 / 700 100 / 100 Balance 1250 / 1250 600 / 700 100 / 100 Lab / Micro Data Result Diagrams: 11/30/22 18:27 11/30/22 18:27 Physical Exam Const no apparent distress Constitutional Narrative: Patient is lethargic and confused General Appearance: cooperative and well developed HEENT normocephalic, head/scalp atraumatic and moist oral mucous membranes Eyes PERRL, EOMs intact bilaterally and conjunctivae normal Neck supple, no JVD and thyroid normal General: trachea midline Resp normal respiratory effort, no retractions, no use of accessory muscles and clear to auscultation bilaterally Auscultation: Negative for rales, rhonchi or wheezes Cardio regular rate, regular rhythm, S1 normal heart sound, S2 normal heart sound, no murmurs, no rub and no gallops GI normal to inspection, nondistended, normoactive bowel sounds, soft to palpation, non-tender and non-distended Extremity no clubbing, cyanosis or edema Skin no rashes or lesions noted General Skin Exam: no breakdown Neuro CN's II-XII intact bilaterally, moves all extremities, no focal motor deficits and no sensory deficits noted Neuro Narrative: Patient is lethargic but arouses to verbal and tactile stimulation, he is confused Psych Psych Narrative: Patient is confused, he is also mildly lethargic Assessment & Plan Assessment/Plan (1) Alcohol withdrawal: PLAN: Plan 1. Acute alcohol withdrawal with DTs-patient does not appear agitated today, he remains confused however and mildly lethargic today. I have elected to decrease the patient's phenobarb dosage history #2 chronic alcoholism-affects care, medical course, recovery, and prognosis-patient will need to talk with addiction social security specialist when he is more alert and not confused Clinical time spent by myself addressing the patient's medical issues, reviewing the data, and collaborating with patient's care team: 37 minutes Charges/Coding Visit Charges Inpatient E&M: 59508 Subs Hosp L2
[2022-12-05] MEDS: traZODone 100 MG Tablet PO (21:07)
[2022-12-05] MEDS: hydrOXYzine PAM 25 MG Capsule 50 MG PO (21:07)
[2022-12-05] MEDS: Paroxetine 20 MG Tablet PO (21:07)
[2022-12-05] MEDS: Atorvastatin Calcium 40 MG Tablet PO (21:07)
[2022-12-06] VITALS (8 sets, daily range): BP systolic 118–139; BP diastolic 74–96; PULSE 72–95; RESP 18–20; TEMP 36.4–36.8; O2SAT 93–97
[2022-12-06] MEDS: Nystatin Powder 15gm Bottle 1 APPLIC TOPICAL ×3 (05:18→20:21)
--- NOTE | 2022-12-06 07:54 | PN.HOSP_ITS ---
Subjective Subjective Patient was admitted for alcohol detox on 11/30/2022. Has recent hospitalization admitted on 11/07/2022 through 11/13/2022. Had completed his phenobarb taper but ended up with hallucinations, confusion, and disorientation at that visit as well which has recurred at this visit. He has again completed his phenobarbital taper. Was more appropriate this morning. No significant lethargy noted but still some intermittent confusion. Patient has no complaints at this time. Objective Data Objective Data Vital Signs: Vital Signs Temp Pulse Resp BP Pulse Ox O2 Del Method 97.6 F L 95 18 132/84 H 97 Room Air 12/06/22 03:00 12/06/22 03:00 12/06/22 03:00 12/06/22 03:00 12/06/22 07:33 12/06/22 07:33 Oxygen Delivery Method Room Air Weight: 101.5 kg Body Mass Index (BMI) 33.0 Intake & Output: Intake and Output for Last 24 Hours 12/04/22 12/05/22 12/06/22 23:59 23:59 23:59 Intake Total 600 / 700 100 / 100 150 / 150 Balance 600 / 700 100 / 100 150 / 150 Lab / Micro Data Result Diagrams: 12/06/22 09:45 12/06/22 09:45 Physical Exam Const alert, oriented x3 and no apparent distress Constitutional Narrative: Obese, older, white male sitting up in bed, watching television, appears comfortable and nontoxic, currently is alert and oriented x3 however still having some intermittent delusions per nursing none for me at the time of my evaluation but was unable to remember why he was in the hospital HEENT head/scalp atraumatic, moist oral mucous membranes and oropharynx normal HEENT Narrative: Dentition is poor, Mallampati is 3, no thrush Head and Scalp: normocephalic Resp normal respiratory effort, no retractions, no use of accessory muscles and clear to auscultation bilaterally Resp Narrative: Diminished but clear Auscultation: Negative for crackles, rhonchi or wheezes Cardio regular rate, regular rhythm, S1 normal heart sound, S2 normal heart sound, no murmurs, no rub, no gallops and no clicks GI normal to inspection, nondistended, normoactive bowel sounds, soft to palpation and non-tender Extremity Extremity Narrative: 2+ pedal pulses Neuro oriented x3, moves all extremities and no focal motor deficits Speech: speech normal Psych affect normal Psych Narrative: Appropriately interactive at the time of my evaluation Assessment & Plan Assessment/Plan (1) Alcohol dependence: (2) Toxic metabolic encephalopathy: PLAN: Plan Alcohol abuse with acute alcohol withdrawal -Drinks 24 12 ounce beers daily -Phenobarb taper completed -Thiamine and folate are being given orally -Continue folate but increase thiamine to 200 mg 3 times daily -Supportive medications for withdrawal symptom management -Consultation to 180 for either outpatient follow-up or residential treatment -Awaiting further input as a indicated on the last note from 12/05/2022 that they would meet with him over the weekend Toxic/metabolic encephalopathy -Patient with baseline mentation on presentation -Ammonia level was normal at 20 -CBC and CMP are unremarkable -Patient with history of hyperammonemia -Increase thiamine dose to 200 mg 3 times daily for 3 days -For Wernicke's encephalopathy -Mental status seems to be better today -If stays stable from a mental status standpoint over the next 24 hours may be able to discharge tomorrow History of alcoholic cardiomyopathy -Last echocardiogram from 04/15/2022 showed an EF of 55% with a moderately enlarged left atrium and a mildly enlarged right atrium -Continue home metoprolol Hyperlipidemia -Continue home atorvastatin Paroxysmal atrial fibrillation -Home metoprolol -Patient was previously on apixaban but this was removed from his med rec from his discharge on 11/13/2022 to his readmission on 11/30/2022 -Patient currently in sinus rhythm -With continued alcohol use patient is high risk for fall and GI bleeding -We will hold apixaban for now but if recurrent PAF will need to reconsider in itiation Depression -Continue home duloxetine -Continue home paroxetine -Continue home aripiprazole History of tobacco abuse -Remote -Encourage continued cessation DVT prophylaxis -With extended length of stay we will start enoxaparin 40 mg daily -Patient had previously been on apixaban Obesity -BMI 33 -Complicates treatment, prognosis, outcomes CODE STATUS -Full code Charges/Coding Visit Charges Inpatient E&M: 57330 Subs Hosp L2
[2022-12-06] MEDS: ARIPiprazole 5 MG Tablet PO (09:12)
[2022-12-06] MEDS: DULoxetine Hcl 60 MG Capsule PO (09:12)
[2022-12-06] MEDS: Metoprolol Tartrate 100 MG Tablet PO ×2 (09:13→20:21)
[2022-12-06] MEDS: Folic Acid 1 MG Tablet PO (09:13)
[2022-12-06] MEDS: amLODIPine 5 MG Tablet PO (09:13)
[2022-12-06] MEDS: Enoxaparin 40 MG/0.4 ML Syringe SC (09:16)
[2022-12-06 09:53] LABS: Absolute Lymphocyte Count 0.82 X10^3/uL (0.83-4.51); Absolute Neutrophil Count 5.4 X10^3/uL (2.0-7.7); Basophil# 0.03 X10^3/uL; Basophil% 0.4 % (0-1); Eosinophil# 0.17 X10^3/uL; Eosinophils% 2.4 % (0-5); Hematocrit 42.5 % (40-54); Hemoglobin 14.2 g/dL (13.0-16.5); Lymphocyte # 0.82 X10^3/ul (0.83-4.51); Lymphocyte % 11.8 % (19-41); Mean Corp Hgb Conc 33.4 g/dL (32-36); Mean Corpuscular Hgb 35.1 pg (27.0-32.0); Mean Corpuscular Volume 104.9 fL (80-94); Mean Platelet Vol. 10.6 fl (6.2-12.0); Monocyte% 7.2 % (0-10); NRBC Flagged by Analyzer 0 % (0-5); Neutrophil # 5.42 X10^3/uL (2.7-7.7); Neutrophil % 77.8 % (47-70); Platelet Count 164 K/mm3 (150-450); RBC Distribution Width CV 13.2 % (11.6-14.6); RBC Distribution Width SD 51.7 fl (35.1-43.9); Red Blood Count 4.05 M/mm3 (4.6-6.2)
[2022-12-06 10:12] LABS: ALB/GLOB Ratio 0.8 RATIO (0.9-2.4); AST(SGOT) 17 U/L (15-37); Alanine Aminotransfer ALT/SGPT 18 U/L (16-61); Albumin, Serum 3.3 g/dL (3.2-5.0); Alkaline Phosphatase 104 U/L (45-117); Anion Gap 7 (5-15); BUN 15 mg/dL (7-18); BUN/Creat Ratio 14.6 RATIO (10-20); Chloride 108 mmol/L (98-107); Creatinine, Serum 1.03 mg/dL (0.70-1.30); EST Glomerular Filtration Rate 75 mL/min (>60); Est Glom Filt Rate - Afr Amer 91 mL/min (>60); Estimated Creatinine Clearance 63.87 ml/min; Glucose 171 mg/dL (74-106); Potassium 3.9 mmol/L (3.5-5.1); Protein, Total 7.3 g/dL (6.4-8.2); Sodium Level 145 mmol/L (136-145)
[2022-12-06] MEDS: 0.9% Saline Lock 10 ML Syringe IV ×2 (14:55→15:24)
[2022-12-06] MEDS: Atorvastatin Calcium 40 MG Tablet PO (20:21)
[2022-12-06] MEDS: Paroxetine 20 MG Tablet PO (20:22)
[2022-12-07 03:09] VITALS: BP 139/99; PULSE 83; RESP 16; TEMP 36.7; O2SAT 98
[2022-12-07] MEDS: Nystatin Powder 15gm Bottle 1 APPLIC TOPICAL (06:33)
[2022-12-07 08:26] VITALS: BP 143/84; PULSE 85; RESP 18; TEMP 36.8; O2SAT 96
[2022-12-07] MEDS: Folic Acid 1 MG Tablet PO (08:34)
[2022-12-07] MEDS: 0.9% Saline Lock 10 ML Syringe IV (08:34)
[2022-12-07 10:36] VITALS: BP 143/84; PULSE 85
[2022-12-07] MEDS: DULoxetine Hcl 60 MG Capsule PO (10:36)
[2022-12-07] MEDS: ARIPiprazole 5 MG Tablet PO (10:36)
[2022-12-07] MEDS: amLODIPine 5 MG Tablet PO (10:36)
[2022-12-07] MEDS: Metoprolol Tartrate 100 MG Tablet PO (10:36)
[2022-12-07] MEDS: Enoxaparin 40 MG/0.4 ML Syringe SC (10:38)
--- NOTE | 2022-12-07 11:04 | PCM.DC.SUM ---
Providers Date of Admission: 11/30/22 Date of Discharge: 12/07/22 Primary Care Physician: Graciela Ashley DO Reason For Visit: ACUTE ETOH WITHDRAWAL Diagnosis Discharge Diagnosis (1) Alcohol dependence: Status: Acute Code(s): F10.20 - Alcohol dependence, uncomplicated (2) Toxic metabolic encephalopathy: Status: Acute Code(s): G92.8 - Other toxic encephalopathy Medications at Discharge Home Medications metoprolol tartrate 100 mg tablet 100 mg PO BID bp 10/03/19 paroxetine HCl 20 mg tablet 20 mg PO QHS mood 10/03/19 atorvastatin 40 mg tablet 40 tab PO DAILY cholesterol 05/08/22 duloxetine 60 mg capsule,delayed release 60 cap PO DAILY mood 05/08/22 aripiprazole 5 mg tablet 5 mg PO DAILY mood 05/26/22 folic acid 1 mg tablet 1 mg PO BREAKFAST #30 tabs 11/13/22 thiamine HCl (vitamin B1) 100 mg tablet (Vitamin B-1) 100 mg PO DAILYCM #30 tabs 11/13/22 amlodipine 10 mg tablet 5 mg PO DAILY 11/30/22 Hospital Course Operations None Procedures None Summary of Care Provided Minutes Spent on Discharge: 33 Hospital Course: Mr. Mccabe is a 72-year-old white male who presented to emergency department on 11/30/2022 for acute alcohol withdrawal. He was here for the same issue from 11/07/2022 through 11/13/2022. He unfortunately had a quick relapse after the discharge and started drinking again with resumption of 10-12, 12 ounce beers a day with his last drink approximately 7 hours prior to presentation. Upon presentation he had some mild diffuse abdominal cramping, nausea, tremors, agitation and tactile disturbances. He had a somewhat complicated withdrawal course with some encephalopathy following his withdrawal at his last hospitalization which was a problem at this hospitalization as well. He was on phenobarbital, thiamine, folate, and supplemental medications for symptomatic treatment with regards to his withdrawal symptoms during his hospital course. We did assess his ammonia level after he completed his phenobarb taper as he was having some persisting confusion it was normal. He also had a normal CBC and CMP. It took him about 48 hours to resolve to the point where he was back to his baseline mental status with being alert and oriented x3. An extensive discussion with him with regards to discharge planning. We strongly recommended treatment in residential setting however the patient was adamant that he was going to go home. He also had somewhat of instability and we recommended some ongoing therapy which he deferred as well. He plans on following up as 180 as an outpatient. I discussed with him the importance of doing this strongly based on his frequent admissions for alcohol detox and his complicated withdrawals. He voiced understanding and stated he was not going to fail outpatient treatment at this time. Discharge diagnoses: Acute alcohol abuse Acute alcohol withdrawal Toxic/metabolic encephalopathy History of alcohol cardiomyopathy Hyperlipidemia PAF Depression History of tobacco abuse Physical Exam Const alert, oriented x3, no apparent distress and average body habitus Constitutional Narrative: Obese, older, white male sitting up in bed, watching television, appears comfortable and nontoxic, patient remains alert and oriented x3 General Appearance: cooperative, comfortable, well kempt and well developed Orientation / Consciousness: awake, oriented to person, oriented to place and oriented to time Exam Limitations: no limitations Nutritional Appearance: obese HEENT normocephalic, head/scalp atraumatic, moist oral mucous membranes and oropharynx normal HEENT Narrative: Mild hearing loss, dentition is fair, Mallampati is 2-3 Neck no lymphadenopathy and supple Neck Narrative: Trachea midline, no thyroid enlargement Resp normal respiratory effort, no retractions, no use of accessory muscles and clear to auscultation bilaterally Resp Narrative: Diminished but clear Auscultation: Negative for crackles, rales, rhonchi or wheezes Cardio regular rate, regular rhythm, S1 normal heart sound, S2 normal heart sound, no murmurs, no rub, no gallops and no clicks GI normal to inspection, nondistended, normoactive bowel sounds, soft to palpation, non-tender and non-distended Extremity normal to inspection and no clubbing, cyanosis or edema Extremity Narrative: 2+ pedal pulses Skin no rashes or lesions noted, no wounds, skin turgor normal and no jaundice Neuro oriented x3, CN's II-XII intact bilaterally, moves all extremities, no focal motor deficits and no sensory deficits noted Sensorium / Orientation: awake, alert, oriented to person, oriented to place and oriented to time Speech: speech normal Psych affect normal Psych Narrative: Appropriately interactive Weight / BMI Weight Weight: 101.5 kg Body Mass Index (BMI) 33.0 ABG / Lab / Microbiology Data Result Diagrams: 12/06/22 09:45 12/06/22 09:45 Meaningful Use Info Meaningful Use Diagnoses (Choose all that apply): None applicable Discharge Plan Admission Admit Date/Time: 11/30/22 19:27 Primary Reason for Your Visit: EtOH withdrawal Attending Provider: Mervat Veras Primary Care Provider: Graciela Ashley Consulting Providers: Aurea Carlton ; Jorge Gardner Instructions Additional Instructions / Restrictions: 1. Please follow up with 180 as directed by 180 liasion Discharge Orders/Prescriptions Prescriptions: Continued paroxetine HCl 20 mg tablet 20 mg PO QHS metoprolol tartrate 100 mg tablet 100 mg PO BID duloxetine 60 mg capsule,delayed release(DR/EC) 60 cap PO DAILY atorvastatin 40 mg tablet 40 tab PO DAILY Label Comments: 1 tablet by mouth as directed aripiprazole 5 mg Tablet 5 mg PO DAILY thiamine HCl (vitamin B1) [Vitamin B-1] 100 mg Tablet 100 mg PO DAILYCM Qty: 30 2RF folic acid 1 mg Tablet 1 mg PO BREAKFAST Qty: 30 2RF amlodipine 10 mg tablet 5 mg PO DAILY Label Comments: TAKE 1 TABLET BY MOUTH ONCE DAILY Referrals / Follow Up: Graciela Ashley DO [Primary Care Provider] - Within 2 Weeks FriendMichael DO [Med Staff - Active Staff] - None Disposition Disposition (needs filled in before D/C Order can be placed): Home, Self Care Charges/Coding Visit Charges Inpatient E&M: 90111 Disch Hosp
[2022-12-07 14:19] VITALS: BP 146/98; PULSE 88; RESP 19; TEMP 37.1; O2SAT 98
== END 2022-12-07 15:52 | disposition home or self-care (01) | DRG 897 ==
LOC: ED 19:41 → MS3 20:35
PROVIDERS: Admitting Provider Family Medicine; Emergency Provider Emergency Medicine; PCP Family Medicine; Visit Provider Internal Medicine
DX: F10.231 Alcohol dependence with withdrawal delirium (principal); I42.6 Alcoholic cardiomyopathy; I48.0 Paroxysmal atrial fibrillation; I10 Essential (primary) hypertension; F41.8 Other specified anxiety disorders; K21.9 Gastro-esophageal reflux disease without esophagitis; E78.5 Hyperlipidemia, unspecified; Z87.891 Personal history of nicotine dependence; F32.A Depression, unspecified; E66.9 Obesity, unspecified; Z68.35 Body mass index [BMI] 35.0-35.9, adult; Y90.0 Blood alcohol level of less than 20 mg/100 ml
CPT/HCPCS: 36415; 80053; 80307; 82077; 82140; 83735; 84100; 85025; 85610; 99285; J7030; J7120; A4216; J2405; J3490

== ENCOUNTER 2022-12-07 17:30 | Emergency (ER) | payer MEDICARE, MEDICAID, SELFPAY ==
[2022-12-07 17:39] VITALS: BP 139/96; PULSE 74; RESP 18; TEMP 36.8; O2SAT 97; BMI 34.4
--- NOTE | 2022-12-07 18:07 | EX.ED.DYSGE1 ---
HPI History of Present Illness Chief Complaint: Confusion Detail of Chief Complaint: Confusion per EMS Informant: patient Onset/Context/Timing Onset: - (Patient states he was walking around [place]. He was out in the cold for some time.) Context: - (Unknown) Timing: Intermittent (Presently he is not confused) Quality: Per EMS confused . Location: Found wandering downw Current Severity: Gone Maximum Severity: Unknown Worsened by: Unknown Relieved by: Unknown Associated Symptoms Associated Symptoms: Nothing per patient Narrative Narrative: Patient is a 72-year-old male with history of alcohol related problems and complications who was brought to the emergency room by squad because of confusion. Patient states he has not had an alcoholic beverage in 2 weeks after completing detox program. Patient denies headache. Patient denies visual, ocular auditory symptoms. Patient denies trouble with speech or swallowing. Patient denies falling. Patient denies head trauma. Patient denies cardiac respiratory symptoms. Patient denies nausea, vomiting or diarrhea. Patient denies dysuria, frequency, urgency or hematuria. Prior similar symptoms: No Recent Illness/Hospital[facility]: [facility] Medical History Acute alcoholic gastritis without hemorrhage Alcohol dependence Alcohol withdrawal Alcoholic cardiomyopathy Alcoholism Anxiety Atrial fibrillation, chronic Atrial flutter, paroxysmal Depression with anxiety Desire for detoxification History of acute alcoholic hepatitis History of alcoholism HTN (hypertension) Left atrial enlargement Overweight Panic disorder Home Medications metoprolol tartrate 100 mg tablet 100 mg PO BID bp 10/03/19 [History Last Taken 11/06/22] paroxetine HCl 20 mg tablet 20 mg PO QHS mood 10/03/19 [History Last Taken Unknown] atorvastatin 40 mg tablet 40 tab PO DAILY cholesterol 05/08/22 [History Last Taken 11/06/22] duloxetine 60 mg capsule,delayed release 60 cap PO DAILY mood 05/08/22 [History Last Taken Unknown] aripiprazole 5 mg tablet 5 mg PO DAILY mood 05/26/22 [History Last Taken 11/05/22] folic acid 1 mg tablet 1 mg PO BREAKFAST #30 tabs 11/13/22 [Rx Last Taken Unknown] thiamine HCl (vitamin B1) 100 mg tablet (Vitamin B-1) 100 mg PO DAILYCM #30 tabs 11/13/22 [Rx Last Taken Unknown] amlodipine 10 mg tablet 5 mg PO DAILY 11/30/22 [History Last Taken Unknown] Allergy/AdvReac Type Severity Reaction Status Date / Time No Known Allergies Allergy Verified 12/07/22 17:43 Family History Mother CVA (cerebral vascular accident) Father Cancer lung cancer Surgical History Hx of cholecystectomy Social History household members: none housing: apartment Smoking Status: Former smoker alcohol intake: current alcohol intake frequency: 3 or more drinks per day details: 24 12 ounce beers daily substance use type: does not use ROS ROS ED Constitutional Constitutional ED: Denies chills, fever(s), subjective, sweats or weight loss Eyes Eyes: Denies blurry vision, change in vision or diplopia ENT ENT ED: Denies ear pain, rhinorrhea or sore throat Cardiovascular Cardiovascular: Denies chest pain, orthopnea, palpitations, paroxysmal nocturnal dyspnea or racing heartbeat Respiratory/Chest Respiratory/Chest: Denies cough, dyspnea, dyspnea on exertion, orthopnea or paroxysmal nocturnal dyspnea Gastrointestinal Gastrointestinal: Denies abdominal pain, diarrhea, nausea or vomiting Genitourinary Genitourinary ED: Denies dysuria, hematuria or urinary frequency Musculoskeletal Musculoskeletal: Denies arthralgias, back pain, myalgias or neck pain Neurologic Neurologic: Denies headache(s), paresthesias or weakness Psychiatric Psychiatric: Denies anxiety or depression Endocrine Endocrinology: Denies cold intolerance or heat intolerance Hematologic/Lymphatic Hematologic/Lymphatic: Reports systems reviewed and no addt'l complaints, except as documented EXAM Physical Exam Const Vital Signs: 12/07/22 17:39 Temperature 98.2 F Temperature Source Oral Pulse Rate 74 Respiratory Rate 18 Blood Pressure 139/96 H Blood Pressure Mean 110 Pulse Ox 97 Oxygen Delivery Method Room Air Positive well nourished, well developed and obese General Appearance ED: well developed and NAD; Negative for cyanotic, diaphoretic or pallor Nutritional Appearance: obese HEENT Reports moist mucous membranes HEENT Narrative: Head is atraumatic normocephalic. Ears normal. TMs normal. Nares patent. No septal deviation hematoma. No dental trauma. Posterior pharynx out erythema or exudate. Uvula is midline. Eyes PERRL and EOMs intact bilaterally Eyes Narrative: There is no subconjunctival hemorrhage. General Eye ED: Negative for pale conjunctiva or scleral icterus Neck no lymphadenopathy, supple and no JVD General: Negative for tenderness Chest Wall inspection of chest normal and palpation of chest normal Resp normal respiratory effort and clear to auscultation bilaterally Cardio regular rate, regular rhythm, S1 normal heart sound, S2 normal heart sound and no murmurs GI normal to inspection, nondistended, normoactive bowel sounds, non-tender, non-distended and no masses; Negative for hepatosplenomegaly Back/Spine no CVA tenderness Cervical Spine: Negative for cervical spine tenderness Thoracic Spine / Upper Back: Negative for thoracic spinal tenderness Lumbar Spine / Lower Back: Negative for lumbar spinal tenderness Extremity normal to inspection Extremity Narrative: Patient's toes and fingers are cool and slightly discolored. Capillary refill is within 2 seconds. General Extremety ED: Negative for edema or tenderness General Extremity: Negative for edema Neuro oriented x3, CN's II-XII intact bilaterally and no sensory deficits noted Neuro Narrative: There is no dysmetria. Sensorium / Orientation: alert Motor Exam: strength 5/5 throughout Psych mental status grossly normal Skin no rashes or lesions noted, no wounds and skin turgor normal General Skin Exam: Negative for jaundice or pallor MDM MDM MDM Narrative Medical decision making narrative: With history of alcoholism will obtain an alcohol level. Will obtain a CBC to assess white count differential. Since there is a history of toxic metabolic cephalopathy on prior admissions will obtain electrolytes as well. Appropriate studies were obtained to assess for metabolic or infectious encephalopathy. Patient presently is alert oriented x4. He has a nonfocal neurologic exam. Since there is no evidence of head trauma imaging of the head was not ordered. Will observe. With history of alcoholism 1 needs entertain possibility of Warnicke's encephalopathy. However the there is no ocular findings. Old records were reviewed. Patient was recently admitted for detox does have history of multiple medical problems related to alcoholism. Since patient's work-up is unremarkable he will be discharged to home. CT was not obtained since he has a nonfocal neurologic exam and there is no history of trauma. Lab Data Attestation: I reviewed the patient's lab results. Lab results narrative: CBC is remarkable for MCV of 103. This is due to history of alcoholism. Basic metabolic panel is unremarkable. Blood sugar slightly evaded 112. CO2 and gap is normal UA is unremarkable. Tox screen is positive for barbiturates. Patient was treated with barbiturates for his alcohol dependency. Tox is otherwise negative. Alcohol level is 0. Labs: Laboratory Results - last 24 hr 12/07/22 12/07/22 12/07/22 18:10 18:10 18:10 WBC 6.2 RBC 4.06 L Hgb 14.2 Hct 42.0 MCV 103.4 H MCH 35.0 H MCHC 33.8 RDW Std Deviation 49.9 H RDW Coeff of Pati 13.1 Plt Count 186 MPV 10.8 Immature Gran % (Auto) 0.500 Neut % (Auto) 75.5 H Lymph % (Auto) 12.2 L Letcher % (Auto) 9.6 Eos % (Auto) 1.9 Baso % (Auto) 0.3 Absolute Neuts (auto) 4.7 Absolute Lymphs (auto) 0.76 L Nucleated RBC % 0 Sodium 144 Potassium 3.5 Chloride 109 H Carbon Dioxide 28.0 Anion Gap 7 BUN 17 Creatinine 1.16 Estim Creat Clear Calc 54.87 Est GFR (MDRD) Af Amer 79 Est GFR (MDRD) Non-Af 66 BUN/Creatinine Ratio 14.7 Glucose 112 H Calcium 9.2 Urine Color Urine Clarity Urine pH Ur Specific Clayton Urine Protein Urine Glucose (UA) Urine Ketones Urine Occult Blood Urine Nitrite Urine Bilirubin Urine Urobilinogen Ur Leukocyte Esterase Urine RBC Urine WBC Ur Squamous Epith Cells Urine Bacteria Urine Mucus Urine Opiates Screen Urine Methadone Screen Ur Barbiturates Screen Ur Phencyclidine Scrn Ur Amphetamines Screen MDMA (Ecstasy) Screen U Benzodiazepines Scrn Urine Cocaine Screen U Cannabinoids Screen Ur Drug Screen Comment Ethyl Alcohol < 3.0 12/07/22 12/07/22 20:13 20:13 WBC RBC Hgb Hct MCV MCH MCHC RDW Std Deviation RDW Coeff of Pati Plt Count MPV Immature Gran % (Auto) Neut % (Auto) Lymph % (Auto) Letcher % (Auto) Eos % (Auto) Baso % (Auto) Absolute Neuts (auto) Absolute Lymphs (auto) Nucleated RBC % Sodium Potassium Chloride Carbon Dioxide Anion Gap BUN Creatinine Estim Creat Clear Calc Est GFR (MDRD) Af Amer Est GFR (MDRD) Non-Af BUN/Creatinine Ratio Glucose Calcium Urine Color Yellow Urine Clarity Clear Urine pH 6.5 Ur Specific Clayton 1.020 Urine Protein 30 H Urine Glucose (UA) Normal Urine Ketones 5 H Urine Occult Blood 25 H Urine Nitrite Negative Urine Bilirubin Negative Urine Urobilinogen 1 H Ur Leukocyte Esterase 25 H Urine RBC 0-5 SEEN Urine WBC 0-5 SEEN Ur Squamous Epith Cells 0-5 SEEN Urine Bacteria 0 SEEN Urine Mucus 0 SEEN Urine Opiates Screen NEGATIVE Urine Methadone Screen NEGATIVE Ur Barbiturates Screen POSITIVE H Ur Phencyclidine Scrn NEGATIVE Ur Amphetamines Screen NEGATIVE MDMA (Ecstasy) Screen NEGATIVE U Benzodiazepines Scrn NEGATIVE Urine Cocaine Screen NEGATIVE U Cannabinoids Screen NEGATIVE Ur Drug Screen Comment Ethyl Alcohol Discharge Plan Triage Chief Complaint: Confusion ED Provider: Jaskaran Badillo Dx/Rx/DC Orders Clinical Impression: Acute alteration in mental status, History of alcoholism, Elevated blood pressure reading Instructions: ED Confusion Prescriptions: No Action paroxetine HCl 20 mg tablet 20 mg PO QHS metoprolol tartrate 100 mg tablet 100 mg PO BID duloxetine 60 mg capsule,delayed release(DR/EC) 60 cap PO DAILY atorvastatin 40 mg tablet 40 tab PO DAILY Label Comments: 1 tablet by mouth as directed aripiprazole 5 mg Tablet 5 mg PO DAILY thiamine HCl (vitamin B1) [Vitamin B-1] 100 mg Tablet 100 mg PO DAILYCM Qty: 30 2RF folic acid 1 mg Tablet 1 mg PO BREAKFAST Qty: 30 2RF amlodipine 10 mg tablet 5 mg PO DAILY Label Comments: TAKE 1 TABLET BY MOUTH ONCE DAILY Primary Care Provider: Graciela Ashley Referrals: Graciela Ashley, [Primary Care Provider] - 5-7 Days Disposition Disposition: Home, Self Care
[2022-12-07 18:21] LABS: Absolute Lymphocyte Count 0.76 X10^3/uL (0.83-4.51); Absolute Neutrophil Count 4.7 X10^3/uL (2.0-7.7); Basophil# 0.02 X10^3/uL; Basophil% 0.3 % (0-1); Eosinophil# 0.12 X10^3/uL; Eosinophils% 1.9 % (0-5); Hemoglobin 14.2 g/dL (13.0-16.5); Lymphocyte # 0.76 X10^3/ul (0.83-4.51); Lymphocyte % 12.2 % (19-41); Mean Corp Hgb Conc 33.8 g/dL (32-36); Mean Corpuscular Volume 103.4 fL (80-94); Mean Platelet Vol. 10.8 fl (6.2-12.0); Monocyte% 9.6 % (0-10); NRBC Flagged by Analyzer 0 % (0-5); Neutrophil % 75.5 % (47-70); Platelet Count 186 K/mm3 (150-450); RBC Distribution Width CV 13.1 % (11.6-14.6); RBC Distribution Width SD 49.9 fl (35.1-43.9); Red Blood Count 4.06 M/mm3 (4.6-6.2); White Blood Count 6.2 K/mm3 (4.4-11.0)
[2022-12-07 18:49] LABS: Anion Gap 7 (5-15); BUN 17 mg/dL (7-18); BUN/Creat Ratio 14.7 RATIO (10-20); Calcium,Total 9.2 mg/dL (8.5-10.1); Chloride 109 mmol/L (98-107); Creatinine, Serum 1.16 mg/dL (0.70-1.30); EST Glomerular Filtration Rate 66 mL/min (>60); Est Glom Filt Rate - Afr Amer 79 mL/min (>60); Estimated Creatinine Clearance 54.87 ml/min; Glucose 112 mg/dL (74-106); Potassium 3.5 mmol/L (3.5-5.1); Sodium Level 144 mmol/L (136-145)
[2022-12-07 19:31] VITALS: RESP 18
[2022-12-07 20:15] LABS: Alcohol, Blood (Medical)-Serum < 3.0 mg/dL
[2022-12-07 20:20] LABS: Bacteria 0 SEEN /hpf (None Seen); Mucous, Urine 0 SEEN /hpf (<or=2+)
[2022-12-07 20:30] LABS: Color, Urine Yellow (Yellow); Glucose, Dipstick Normal (Normal); Ketone-Dipstick 5 mg/dl (Negative); Leukocyte Esterase-Dipstick 25 /ul (Negative); Nitrite-Dipstick Negative (Negative); Occult Blood-Urine 25 /ul (Negative); Protein-Dipstick 30 mg/dl (Negative); Urine Bilirubin Dipstick Negative (Negative); Urine Clarity Clear (Clear); Urine Urobilinogen 1 mg/dl (Normal); Urine pH 6.5 (5.0 - 8.0)
[2022-12-07 20:45] LABS: Amphetamine Urine VISTA NEGATIVE (<1000 ng/mL); Barbiturate Urine VISTA POSITIVE (< 200 ng/mL); Benzodiazepine Urine VISTA NEGATIVE (< 200 ng/mL); Cocaine Urine VISTA NEGATIVE (< 300 ng/mL); Ecstacy Urine VISTA NEGATIVE (< 500 ng/mL); Methadone Urine VISTA NEGATIVE (< 300 ng/mL); PCP Urine VISTA NEGATIVE (< 25 ng/mL); THC Urine VISTA NEGATIVE (< 50 ng/mL); Vista UDS pH Range 6
[2022-12-07 20:48] LABS: Red Blood Cells-Urine 0-5 SEEN /hpf (0-5); Squamous Epithelial Cells - UA 0-5 SEEN /hpf (0-5); White Blood Cells 0-5 SEEN /hpf (0-5)
== END 2022-12-07 21:22 | disposition home or self-care (01) ==
PROVIDERS: Emergency Provider Emergency Medicine; PCP Family Medicine; Visit Provider Emergency Medicine
DX: R41.82 Altered mental status, unspecified (principal); I48.20 Chronic atrial fibrillation, unspecified; F41.9 Anxiety disorder, unspecified; F32.A Depression, unspecified; I10 Essential (primary) hypertension; Z87.891 Personal history of nicotine dependence; Z79.899 Other long term (current) drug therapy
CPT/HCPCS: 80048; 80307; 81001; 82077; 85025; 99285

== ENCOUNTER 2022-12-15 14:53 | Inpatient (IN) | payer MEDICARE, MEDICAID, SELFPAY ==
[2022-12-15] VITALS (10 sets, daily range): BP systolic 104–149; BP diastolic 55–99; PULSE 85–112; RESP 16–28; TEMP 36.4–37; O2SAT 92–96; BMI 35.1; BMI 36.2
--- NOTE | 2022-12-15 15:38 | EDS_ITS ---
HPI HPI - GI History of Present Illness Chief Complaint: Nausea/Vomiting/Diarrhea Narrative Narrative: 72-year-old male presenting with nausea without vomiting. He states that he is an alcoholic. He usually drinks about 12 beers a day. Yesterday he states he d rank about 24 in the last 24 hours. Last drink was about 10 AM. He started feeling nauseous after this. He feels he is withdrawing. He has a history of alcohol abuse and withdrawal. He states he would likely have a seizure if he did not get detox. He wants detox today. [facility] Medical History Acute alcoholic gastritis without hemorrhage Alcohol dependence Alcohol withdrawal Alcoholic cardiomyopathy Alcoholism Anxiety Atrial fibrillation, chronic Atrial flutter, paroxysmal Depression with anxiety Desire for detoxification History of acute alcoholic hepatitis History of alcoholism HTN (hypertension) Left atrial enlargement Overweight Panic disorder Home Medications metoprolol tartrate 100 mg tablet 100 mg PO BID bp 10/03/19 [History Last Taken 11/06/22] paroxetine HCl 20 mg tablet 20 mg PO QHS mood 10/03/19 [History Last Taken Unknown] atorvastatin 40 mg tablet 40 tab PO DAILY cholesterol 05/08/22 [History Last Taken 11/06/22] duloxetine 60 mg capsule,delayed release 60 cap PO DAILY mood 05/08/22 [History Last Taken Unknown] aripiprazole 5 mg tablet 5 mg PO DAILY mood 05/26/22 [History Last Taken 11/05/22] folic acid 1 mg tablet 1 mg PO BREAKFAST #30 tabs 11/13/22 [Rx Last Taken Unknown] thiamine HCl (vitamin B1) 100 mg tablet (Vitamin B-1) 100 mg PO DAILYCM #30 tabs 11/13/22 [Rx Last Taken Unknown] amlodipine 10 mg tablet 5 mg PO DAILY 11/30/22 [History Last Taken Unknown] Allergy/AdvReac Type Severity Reaction Status Date / Time No Known Allergies Allergy Verified 12/15/22 14:54 Family History Mother CVA (cerebral vascular accident) Father Cancer lung cancer Surgical History Hx of cholecystectomy Social History household members: none housing: apartment Smoking Status: Former smoker alcohol intake: current alcohol intake frequency: 3 or more drinks per day details: 24 12 ounce beers daily substance use type: does not use EXAM Physical Exam Const Vital Signs: 12/15/22 14:55 12/15/22 15:29 Temperature 97.6 F L 97.6 F L Temperature Source Temporal Temporal Pulse Rate 107 H 112 H Respiratory Rate 20 H 28 H Blood Pressure 149/99 H 132/95 H Blood Pressure Mean 115 107 Blood Pressure Source Monitor Blood Pressure Position Semi-Fowlers Blood Pressure Location Right Arm Pulse Ox 95 95 Oxygen Delivery Method Room Air Room Air Positive obese and unkempt General Appearance ED: unkempt; Negative for pallor Nutritional Appearance: obese HEENT Reports moist mucous membranes normocephalic and atraumatic Eyes PERRL and EOMs intact bilaterally General Eye ED: Negative for pale conjunctiva or scleral icterus Resp normal respiratory effort and clear to auscultation bilaterally Auscultation: Negative for rales, rhonchi or wheezes Cardio regular rate and regular rhythm GI non-tender and non-distended Back/Spine no CVA tenderness Neuro CN's II-XII intact bilaterally Sensorium / Orientation: alert Psych mental status grossly normal and thought process normal Appearance: unkempt Skin General Skin Exam: Negative for jaundice or pallor MDM MDM MDM Narrative Medical decision making narrative: Patient presenting for nausea. He is an alcoholic. He states he does want detox. Differential diagnosis includes but not limited to alcohol intoxication, EtOH withdrawal, hyponatremia, hypokalemia, hypomagnesemia, pancreatitis, gastritis. Patient medicated with Zofran. Is given a liter IV fluids and 2 mg of Ativan because he feels he is withdrawing. CBC to assess white blood cell count, hemoglobin, platelets, differential. CMP to assess liver function, renal function, electrolytes, anion gap. Lipase to assess for pancreatitis. Drug abuse screen was added as well as an alcohol level. CBC shows mildly elevated white blood cell count of 12. Hemoglobin are stable. Platelets within normal limits. Renal function, electrolytes within normal limits. LFTs unremarkable. Lipase 200. EtOH 19. Patient showing evidence he is withdrawing and is hypertensive and tachycardic. He feels improved after Ativan. Nursing staff reported to me that he had been having some hallucinations of watching a baseball game. The TV is off. I went to evaluated him and and he seems alert and awake. He appears to be responding appropriately. I discussed with the hospitalist for admission. Impression: 1. EtOH abuse 2. EtOH withdrawal 3. Presentation for EtOH deep Lab Data Attestation: I reviewed the patient's lab results. Labs: Laboratory Results - last 24 hr 12/15/22 12/15/22 12/15/22 15:25 15:25 15:25 WBC 12.0 H RBC 4.29 L Hgb 15.7 Hct 43.4 MCV 101.2 H MCH 36.6 H MCHC 36.2 H RDW Std Deviation 48.5 H RDW Coeff of Pati 13.1 Plt Count 279 MPV 11.0 Immature Gran % (Auto) 0.500 Neut % (Auto) 80.2 H Lymph % (Auto) 10.8 L [place] % (Auto) 7.3 Eos % (Auto) 0.8 Baso % (Auto) 0.4 Absolute Neuts (auto) 9.7 H Absolute Lymphs (auto) 1.30 Nucleated RBC % 0 Sodium 140 Potassium 4.1 Chloride 106 Carbon Dioxide 23.0 Anion Gap 11 BUN 15 Creatinine 0.96 Estim Creat Clear Calc 68.53 Est GFR (MDRD) Af Amer 98 Est GFR (MDRD) Non-Af 81 BUN/Creatinine Ratio 15.6 Glucose 100 Calcium 8.9 Total Bilirubin 0.30 AST 32 ALT 45 Alkaline Phosphatase 117 Total Protein 7.7 Albumin 3.6 Globulin 4.1 Albumin/Globulin Ratio 0.9 Lipase 200 Ethyl Alcohol 19.0 Discharge Plan Triage Chief Complaint: Nausea/Vomiting/Diarrhea ED Provider: Jamar Aragon Dx/Rx/DC Orders Prescriptions: No Action paroxetine HCl 20 mg tablet 20 mg PO QHS metoprolol tartrate 100 mg tablet 100 mg PO BID duloxetine 60 mg capsule,delayed release(DR/EC) 60 cap PO DAILY atorvastatin 40 mg tablet 40 tab PO DAILY Label Comments: 1 tablet by mouth as directed aripiprazole 5 mg Tablet 5 mg PO DAILY thiamine HCl (vitamin B1) [Vitamin B-1] 100 mg Tablet 100 mg PO DAILYCM Qty: 30 2RF folic acid 1 mg Tablet 1 mg PO BREAKFAST Qty: 30 2RF amlodipine 10 mg tablet 5 mg PO DAILY Label Comments: TAKE 1 TABLET BY MOUTH ONCE DAILY Primary Care Provider: Graciela Ashley Referrals: Graciela Ashley, DO [Primary Care Provider] -
[2022-12-15 15:39] LABS: Absolute Neutrophil Count 9.7 X10^3/uL (2.0-7.7); Basophil# 0.05 X10^3/uL; Basophil% 0.4 % (0-1); Eosinophils% 0.8 % (0-5); Hematocrit 43.4 % (40-54); Hemoglobin 15.7 g/dL (13.0-16.5); Lymphocyte % 10.8 % (19-41); Mean Corp Hgb Conc 36.2 g/dL (32-36); Mean Corpuscular Hgb 36.6 pg (27.0-32.0); Mean Corpuscular Volume 101.2 fL (80-94); Monocyte# 0.88 X10^3/uL; Monocyte% 7.3 % (0-10); NRBC Flagged by Analyzer 0 % (0-5); Neutrophil # 9.65 X10^3/uL (2.7-7.7); Neutrophil % 80.2 % (47-70); Platelet Count 279 K/mm3 (150-450); RBC Distribution Width CV 13.1 % (11.6-14.6); RBC Distribution Width SD 48.5 fl (35.1-43.9); Red Blood Count 4.29 M/mm3 (4.6-6.2)
[2022-12-15] MEDS: 0.9% Normal Saline 1,000 ML 1000 ML IV (15:48)
[2022-12-15] MEDS: Ondansetron 4 MG/2 ML Vial IV (15:48)
[2022-12-15] MEDS: LORazepam 2 MG/ML Syringe IV (15:48)
[2022-12-15 15:52] LABS: ALB/GLOB Ratio 0.9 RATIO (0.9-2.4); AST(SGOT) 32 U/L (15-37); Alanine Aminotransfer ALT/SGPT 45 U/L (16-61); Albumin, Serum 3.6 g/dL (3.2-5.0); Alkaline Phosphatase 117 U/L (45-117); Anion Gap 11 (5-15); BUN 15 mg/dL (7-18); BUN/Creat Ratio 15.6 RATIO (10-20); Calcium,Total 8.9 mg/dL (8.5-10.1); Chloride 106 mmol/L (98-107); Creatinine, Serum 0.96 mg/dL (0.70-1.30); EST Glomerular Filtration Rate 81 mL/min (>60); Est Glom Filt Rate - Afr Amer 98 mL/min (>60); Estimated Creatinine Clearance 68.53 ml/min; Globulin 4.1 g/dL (2.2-4.2); Glucose 100 mg/dL (74-106); Lipase 200 U/L (73-393); Potassium 4.1 mmol/L (3.5-5.1); Protein, Total 7.7 g/dL (6.4-8.2); Sodium Level 140 mmol/L (136-145)
--- NOTE | 2022-12-15 17:21 | NURSING ---
HOSPITALIST FOR DR JAMES
--- NOTE | 2022-12-15 17:28 | HP.PCM.HOS_ITS ---
HPI - General General Date of Admission: 12/15/22 Date of Service: 12/15/22 Chief Complaint: Request for acute alcohol withdrawal HPI Narrative LANIE DELONG, is a 72 M who presents with the above. Patient has past medical history of chronic alcohol abuse, drinks about 18 counts of beer every day, hypertension, schizophrenia who comes in with nausea and vomiting that has been ongoing for about 4 days. Patient stated that he last drank alcohol on the morning of admission. He drank about 9 cans of beer. He started feeling unwell and had a couple of episodes of vomiting. He called on the EMS to bring him to the hospital. In the emergency room, he was found to be tremulous and intermittently visually hallucinating. His vitals on arrival to the ED showed blood pressure 149/99, heart rate 107, respiratory 20, temperature 97.6 F, oxygen sat was 95% on room air. His WBC count was 12.0, hemoglobin 15.7, platelet count 279, CMP was unremarkable. Urine tox positive for barbiturates. Alcohol level is 19. PFSH Medical History Acute alcoholic gastritis without hemorrhage Alcohol dependence Alcohol dependence Alcohol withdrawal Alcoholic cardiomyopathy Alcoholism Anxiety Atrial fibrillation, chronic Atrial flutter, paroxysmal Depression with anxiety Desire for detoxification History of acute alcoholic hepatitis History of alcoholism HTN (hypertension) Left atrial enlargement Overweight Panic disorder Home Medications metoprolol tartrate 100 mg tablet 100 mg PO BID bp 10/03/19 [History Last Taken 11/06/22] atorvastatin 40 mg tablet 40 tab PO DAILY cholesterol 05/08/22 [History Last Taken 11/06/22] duloxetine 60 mg capsule,delayed release 60 cap PO DAILY mood 05/08/22 [History Last Taken Unknown] aripiprazole 5 mg tablet 5 mg PO DAILY mood 05/26/22 [History Last Taken 11/05/22] folic acid 1 mg tablet 1 mg PO BREAKFAST #30 tabs 11/13/22 [Rx Last Taken Unknown] thiamine HCl (vitamin B1) 100 mg tablet (Vitamin B-1) 100 mg PO DAILYCM #30 tabs 11/13/22 [Rx Last Taken Unknown] amlodipine 5 mg tablet 5 mg PO DAILY BP 12/15/22 [History Last Taken Unknown] Allergy/AdvReac Type Severity Reaction Status Date / Time No Known Allergies Allergy Verified 12/15/22 14:54 Family History Mother CVA (cerebral vascular accident) Father Cancer lung cancer Surgical History Hx of cholecystectomy Social History household members: none housing: apartment Smoking Status: Former smoker alcohol intake: current alcohol intake frequency: 3 or more drinks per day details: 24 12 ounce beers daily substance use type: does not use ROS ROS Narrative Patient was intermittently hallucinating Review of Systems ROS Unobtainable: due to encephalopathy Vital Signs Vital Signs Vital Signs: 12/15/22 14:55 12/15/22 15:29 Temperature 97.6 F L 97.6 F L Temperature Source Temporal Temporal Pulse Rate 107 H 112 H Respiratory Rate 20 H 28 H Blood Pressure 149/99 H 132/95 H Blood Pressure Mean 115 107 Blood Pressure Source Monitor Blood Pressure Position Semi-Fowlers Blood Pressure Location Right Arm Pulse Ox 95 95 Oxygen Delivery Method Room Air Room Air Weight Weight: 107.9 kg Body Mass Index (BMI) 35.1 Physical Exam Narrative Physical exam: General: Alert, Oriented x3, Cooperative, obese, intermittently visually hallucinating HEENT: Atraumatic Oral: Moist Mucosa Neck: Supple Lungs: Diminished to auscultation Cardiovascular: HS I+II, regular, no murmurs Abdomen: Obese, bowel Sounds Present, Soft, Non Tender Extremities: No edema Skin: No rashes, No breakdown Neurological: Grossly intact Psych/Mental Status: Appropriate Results Lab / Micro Data Result Diagrams: 12/15/22 15:25 12/15/22 15:25 Labs: Laboratory Results - last 24 hr 12/15/22 15:25: WBC 12.0 H, RBC 4.29 L, Hgb 15.7, Hct 43.4, MCV 101.2 H, MCH 36.6 H, MCHC 36.2 H, RDW Std Deviation 48.5 H, RDW Coeff of Pati 13.1, Plt Count 279, MPV 11.0, Immature Gran % (Auto) 0.500, Neut % (Auto) 80.2 H, Lymph % (Auto) 10.8 L, [place] % (Auto) 7.3, Eos % (Auto) 0.8, Baso % (Auto) 0.4, Absolute Neuts (auto) 9.7 H, Absolute Lymphs (auto) 1.30, Nucleated RBC % 0 12/15/22 15:25: Sodium 140, Potassium 4.1, Chloride 106, Carbon Dioxide 23.0, Anion Gap 11, BUN 15, Creatinine 0.96, Estim Creat Clear Calc 68.53, Est GFR (MDRD) Af Amer 98, Est GFR (MDRD) Non-Af 81, BUN/Creatinine Ratio 15.6, Glucose 100, Calcium 8.9, Total Bilirubin 0.30, AST 32, ALT 45, Alkaline Phosphatase 117, Total Protein 7.7, Albumin 3.6, Globulin 4.1, Albumin/Globulin Ratio 0.9, Lipase 200 12/15/22 15:25: Ethyl Alcohol 19.0 Assessment & Plan Assessment/Plan (1) Severe alcohol withdrawal delirium: PLAN: Plan 1. Acute severe alcohol withdrawal, probable impending delirium tremens Patient presents with tremors and auditory hallucination We will admit to PCU monitor on the phenobarbital withdrawal protocol 2. Acute nausea and vomiting likely secondary to alcoholic gastritis Patient has history of alcoholic gastritis We will start on oral PPI twice daily, Mylanta as needed 3. Hypertension, controlled, continue on metoprolol, amlodipine 4. Hyperlipidemia, continue on statin 5. Anxiety/depression/schizophrenia, continue on abilify and cymbalta 6. DVT PPx - Heparin SC Total time spent: 55 minutes of which more > 50% was spent in reviewing patient's chart, laboratory investigations, imaging, discussing with emergency physician, taking history and physical examining patient and discussing plan of care with patient. Charges/Coding Visit Charges Inpatient E&M: 84760 Init Hosp L2
--- NOTE | 2022-12-15 17:58 | EKG12_ITS ---
Test Reason : DETOX Blood Pressure : / mmHG Vent. Rate : 105 BPM Atrial Rate : 101 BPM P-R Int : 000 ms QRS Dur : 090 ms QT Int : 352 ms P-R-T Axes : 000 015 028 degrees QTc Int : 465 ms Atrial fibrillation Abnormal ECG Confirmed by JENNIFER MEJIA, DAVID ([id number]), food expeditor MELVI ALBA ([id number]) on 12/16/2022 10:20:26 AM Referred By: ERIKA Confirmed By:DAVID RODRIGUEZ MD
--- NOTE | 2022-12-15 17:59 | NURSING ---
pcu etoh intox [place]
[2022-12-15] MEDS: Phenobarbital 32.4 MG Tablet 97.2 MG PO ×3 (18:07→23:54)
[2022-12-15 18:30] LABS: Amphetamine Urine VISTA NEGATIVE (<1000 ng/mL); Barbiturate Urine VISTA POSITIVE (< 200 ng/mL); Benzodiazepine Urine VISTA NEGATIVE (< 200 ng/mL); Cocaine Urine VISTA NEGATIVE (< 300 ng/mL); Ecstacy Urine VISTA NEGATIVE (< 500 ng/mL); Methadone Urine VISTA NEGATIVE (< 300 ng/mL); PCP Urine VISTA NEGATIVE (< 25 ng/mL); THC Urine VISTA NEGATIVE (< 50 ng/mL); Vista UDS pH Range 5
[2022-12-15] MEDS: Atorvastatin Calcium 40 MG Tablet PO (20:13)
[2022-12-15] MEDS: Paroxetine 20 MG Tablet PO (20:14)
[2022-12-15] MEDS: 0.9% Normal Saline 1,000 ML 125 ML IV (20:15)
[2022-12-15] MEDS: Metoprolol Tartrate 100 MG Tablet PO (20:19)
[2022-12-15] MEDS: Pantoprazole Sodium 40 MG Tablet PO (23:54)
[2022-12-16] VITALS (8 sets, daily range): BP systolic 122–146; BP diastolic 80–95; PULSE 72–100; RESP 16–18; TEMP 36.5–36.8; O2SAT 93–95
[2022-12-16] MEDS: Phenobarbital 32.4 MG Tablet 97.2 MG PO ×3 (03:53→11:45)
[2022-12-16 05:55] LABS: Absolute Lymphocyte Count 0.93 X10^3/uL (0.83-4.51); Absolute Neutrophil Count 4.5 X10^3/uL (2.0-7.7); Basophil# 0.04 X10^3/uL; Basophil% 0.6 % (0-1); Eosinophil# 0.13 X10^3/uL; Eosinophils% 2.1 % (0-5); Hematocrit 39.3 % (40-54); Hemoglobin 13.5 g/dL (13.0-16.5); Lymphocyte # 0.93 X10^3/ul (0.83-4.51); Lymphocyte % 14.9 % (19-41); Mean Corp Hgb Conc 34.4 g/dL (32-36); Mean Corpuscular Hgb 35.2 pg (27.0-32.0); Mean Corpuscular Volume 102.3 fL (80-94); Mean Platelet Vol. 10.8 fl (6.2-12.0); Monocyte# 0.61 X10^3/uL; Monocyte% 9.8 % (0-10); NRBC Flagged by Analyzer 0 % (0-5); Neutrophil # 4.53 X10^3/uL (2.7-7.7); Neutrophil % 72.4 % (47-70); Platelet Count 209 K/mm3 (150-450); RBC Distribution Width CV 13.2 % (11.6-14.6); RBC Distribution Width SD 49.5 fl (35.1-43.9); Red Blood Count 3.84 M/mm3 (4.6-6.2); White Blood Count 6.3 K/mm3 (4.4-11.0)
[2022-12-16 06:46] LABS: ALB/GLOB Ratio 0.9 RATIO (0.9-2.4); AST(SGOT) 22 U/L (15-37); Alanine Aminotransfer ALT/SGPT 33 U/L (16-61); Alkaline Phosphatase 111 U/L (45-117); Anion Gap 7 (5-15); BUN 12 mg/dL (7-18); BUN/Creat Ratio 12.3 RATIO (10-20); Calcium,Total 8.7 mg/dL (8.5-10.1); Chloride 107 mmol/L (98-107); Creatinine, Serum 0.98 mg/dL (0.70-1.30); EST Glomerular Filtration Rate 80 mL/min (>60); Est Glom Filt Rate - Afr Amer 97 mL/min (>60); Estimated Creatinine Clearance 62.77 ml/min; Globulin 3.4 g/dL (2.2-4.2); Glucose 102 mg/dL (74-106); Potassium 3.7 mmol/L (3.5-5.1); Protein, Total 6.4 g/dL (6.4-8.2); Sodium Level 141 mmol/L (136-145)
[2022-12-16] MEDS: 0.9% Normal Saline 1,000 ML 125 ML IV (06:53)
[2022-12-16] MEDS: Heparin Injection (Vial) 5,000 UNIT/ML VIAL 5000 UNIT SC ×3 (07:03→21:19)
[2022-12-16] MEDS: Pantoprazole Sodium 40 MG Tablet PO ×2 (10:20→21:18)
[2022-12-16] MEDS: Loperamide 2 MG Capsule PO (10:20)
[2022-12-16] MEDS: hydrOXYzine PAM 25 MG Capsule 50 MG PO ×3 (10:20→21:18)
[2022-12-16] MEDS: Thiamine Hydrochloride 100 MG Tablet PO (10:20)
[2022-12-16] MEDS: Metoprolol Tartrate 100 MG Tablet PO ×2 (10:20→21:19)
[2022-12-16] MEDS: Folic Acid 1 MG Tablet PO (10:21)
[2022-12-16] MEDS: DULoxetine Hcl 60 MG Capsule PO (10:21)
[2022-12-16] MEDS: ARIPiprazole 5 MG Tablet PO (10:21)
[2022-12-16] MEDS: amLODIPine 10 MG Tablet 5 MG PO (10:21)
--- NOTE | 2022-12-16 12:05 | NURSING ---
I have set up the Hospital van to take pt home at 1400 tomorrow 12-17-22.
--- NOTE | 2022-12-16 12:20 | ADDICTION ---
This ghost writer met with PT to conduct ASAM, MSE, AUDIT assessments and to plan for d/c. PT A+Ox4 and participated actively. All assessments completed in PT's chart. PT plans to f/u with [facility] for follow-up assessment and counseling services. PT did not indicate a need for transportation post d/c from [facility].
[2022-12-16] MEDS: Gabapentin 300 MG Capsule PO (15:44)
[2022-12-16] MEDS: Phenobarbital 32.4 MG Tablet 64.8 MG PO ×2 (15:45→21:18)
--- NOTE | 2022-12-16 18:15 | NURSING ---
Report called to AGUILAR Stacy, pt ready to transfer to [id number]
--- NOTE | 2022-12-16 18:21 | PCM.PN.HOSP ---
Reason for Visit Reason for Visit: Diagnoses Alcohol use, unspecified with withdrawal delirium (12/15/22) Subjective Subjective Patient was seen and examined briefly today, he just left the hospital approximately 7 to 10 days ago after staying for several days for alcohol detox, patient did not follow-up with anybody as an outpatient, he was admitted through the emergency room again requesting alcohol detox services. I do not feel the patient is genuine with his desire to quit drinking at this time, I talked with addiction social science instructor today who saw the patient again and the patient refused to go to an inpatient facility for detox services. I told the patient today that I would reevaluate him tomorrow and that if he was stable and was not going through severe withdrawal symptoms that I would discharge him home with instructions to follow-up with 180. Objective Data Objective Data Vital Signs: Vital Signs Temp Pulse Resp BP Pulse Ox O2 Del Method 97.9 F 91 16 122/80 H 95 Room Air 12/16/22 15:35 12/16/22 15:35 12/16/22 15:35 12/16/22 15:35 12/16/22 15:35 12/16/22 15:35 Oxygen Delivery Method Room Air Weight: 104.8 kg Body Mass Index (BMI) 36.2 Intake & Output: Intake and Output for Last 24 Hours 12/14/22 12/15/22 12/16/22 23:59 23:59 23:59 Intake Total 1000 / 1000 2940 / 2940 Output Total 300 / 300 300 / 300 Balance 700 / 700 2640 / 2640 Lab / Micro Data Result Diagrams: 12/16/22 05:43 12/16/22 05:43 Labs: Laboratory Results - last 24 hr 12/15/22 17:50: Urine Opiates Screen NEGATIVE, Urine Methadone Screen NEGATIVE, Ur Barbiturates Screen POSITIVE H, Ur Phencyclidine Scrn NEGATIVE, Ur Amphetamines Screen NEGATIVE, MDMA (Ecstasy) Screen NEGATIVE, U Benzodiazepines Scrn NEGATIVE, Urine Cocaine Screen NEGATIVE, U Cannabinoids Screen NEGATIVE 12/16/22 05:43: WBC 6.3, RBC 3.84 L, Hgb 13.5, Hct 39.3 L, MCV 102.3 H, MCH 35.2 H, MCHC 34.4, RDW Std Deviation 49.5 H, RDW Coeff of Pati 13.2, Plt Count 209, MPV 10.8, Immature Gran % (Auto) 0.200, Neut % (Auto) 72.4 H, Lymph % (Auto) 14.9 L, [place] % (Auto) 9.8, Eos % (Auto) 2.1, Baso % (Auto) 0.6, Absolute Neuts (auto) 4.5, Absolute Lymphs (auto) 0.93, Nucleated RBC % 0 12/16/22 05:43: Sodium 141, Potassium 3.7, Chloride 107, Carbon Dioxide 27.0, Anion Gap 7, BUN 12, Creatinine 0.98, Estim Creat Clear Calc 62.77, Est GFR (MDRD) Af Amer 97, Est GFR (MDRD) Non-Af 80, BUN/Creatinine Ratio 12.3, Glucose 102, Calcium 8.7, Total Bilirubin 0.50, AST 22, ALT 33, Alkaline Phosphatase 111, Total Protein 6.4, Albumin 3.0 L, Globulin 3.4, Albumin/Globulin Ratio 0.9 Physical Exam Const alert, oriented x3 and no apparent distress General Appearance: cooperative, well kempt and well developed Orientation / Consciousness: awake, oriented to person, oriented to place and oriented to time HEENT normocephalic and moist oral mucous membranes Eyes PERRL, EOMs intact bilaterally and conjunctivae normal Neck supple, no JVD, thyroid normal and no carotid bruits General: trachea midline Resp normal respiratory effort, no retractions, no use of accessory muscles and clear to auscultation bilaterally Auscultation: Negative for rales, rhonchi or wheezes Cardio regular rate, regular rhythm, no murmurs, no rub and no gallops GI normal to inspection, nondistended, normoactive bowel sounds, soft to palpation, non-tender and non-distended Extremity no clubbing, cyanosis or edema Skin no rashes or lesions noted General Skin Exam: no breakdown Neuro oriented x3, CN's II-XII intact bilaterally, no focal motor deficits and no sensory deficits noted Sensorium / Orientation: awake and alert Speech: speech normal Psych affect normal Assessment & Plan Assessment/Plan (1) Severe alcohol withdrawal delirium: PLAN: Plan #1 acute alcohol withdrawal-currently no evidence of DTs at this time, I will reevaluate the patient tomorrow for possible discharge home, however, if the patient is confused and showing signs of severe alcohol withdrawal, he will not be able to be discharged until he is capable of taking care of himself at home. I do not know if there is a solution to keep this patient from returning to the hospital, I think there is an underlying psychological issue with this patient. #2 chronic alcoholism-noncompliant with outpatient treatment-complicates care, medical course, recovery, and prognosis #3 chronic depression-patient will remain on Cymbalta #4 hyperlipidemia-patient will remain on atorvastatin #5 essential hypertension-patient will remain on his present home medications Total clinical time spent by myself addressing the patient's medical issues, reviewing all his data, and collaborating with patient's care team: 36 minutes Charges/Coding Visit Charges Inpatient E&M: 32597 Subs Hosp L2
[2022-12-16] MEDS: traZODone 100 MG Tablet PO (21:18)
[2022-12-16] MEDS: Paroxetine 20 MG Tablet PO (21:18)
[2022-12-16] MEDS: Atorvastatin Calcium 40 MG Tablet PO (21:18)
[2022-12-17] VITALS (7 sets, daily range): BP systolic 100–128; BP diastolic 66–92; PULSE 77–102; RESP 16–20; TEMP 36.4–36.8; O2SAT 92–99
[2022-12-17] MEDS: hydrOXYzine PAM 25 MG Capsule 50 MG PO ×2 (01:26→19:38)
[2022-12-17] MEDS: Gabapentin 300 MG Capsule PO ×2 (01:26→22:37)
[2022-12-17] MEDS: Phenobarbital 32.4 MG Tablet 64.8 MG PO ×3 (05:28→22:37)
[2022-12-17] MEDS: Heparin Injection (Vial) 5,000 UNIT/ML VIAL 5000 UNIT SC ×3 (05:49→22:38)
[2022-12-17] MEDS: Pantoprazole Sodium 40 MG Tablet PO ×2 (10:02→22:40)
[2022-12-17] MEDS: DULoxetine Hcl 60 MG Capsule PO (10:02)
[2022-12-17] MEDS: Thiamine Hydrochloride 100 MG Tablet PO (10:02)
[2022-12-17] MEDS: Folic Acid 1 MG Tablet PO (10:02)
[2022-12-17] MEDS: Metoprolol Tartrate 100 MG Tablet PO ×2 (10:02→22:39)
[2022-12-17] MEDS: amLODIPine 10 MG Tablet 5 MG PO (10:02)
[2022-12-17] MEDS: ARIPiprazole 5 MG Tablet PO (10:02)
--- NOTE | 2022-12-17 15:45 | PCM.PN.HOSP ---
Reason for Visit Reason for Visit: Diagnoses Alcohol use, unspecified with withdrawal delirium (12/15/22) Subjective Subjective Patient was seen and examined today, he has become confused since yesterday, he is directable at times but he is obviously going through DTs. Patient was moved to [place] [id number] yesterday. Objective Data Objective Data Vital Signs: Vital Signs Temp Pulse Resp BP Pulse Ox O2 Del Method 97.7 F L 80 18 109/75 94 Room Air 12/17/22 14:00 12/17/22 14:00 12/17/22 14:00 12/17/22 14:00 12/17/22 14:00 12/17/22 14:00 Oxygen Delivery Method Room Air Weight: 104.9 kg Body Mass Index (BMI) 36.2 Intake & Output: Intake and Output for Last 24 Hours 12/15/22 12/16/22 12/17/22 23:59 23:59 23:59 Intake Total 1000 / 1000 2940 / 2940 Output Total 300 / 300 300 / 300 0 / 0 Balance 700 / 700 2640 / 2640 0 / 0 Lab / Micro Data Result Diagrams: 12/16/22 05:43 12/16/22 05:43 Physical Exam Const alert Constitutional Narrative: Patient is alert but confused, he is somewhat directable General Appearance: cooperative Orientation / Consciousness: awake and confused HEENT normocephalic, head/scalp atraumatic and moist oral mucous membranes Eyes PERRL, EOMs intact bilaterally and conjunctivae normal Neck supple, no JVD, thyroid normal and no carotid bruits General: trachea midline Resp normal respiratory effort, no retractions, no use of accessory muscles and clear to auscultation bilaterally Auscultation: Negative for rales, rhonchi or wheezes Cardio regular rate, regular rhythm, S1 normal heart sound, S2 normal heart sound, no murmurs, no rub and no gallops GI normal to inspection, nondistended, normoactive bowel sounds, soft to palpation, non-tender and non-distended Extremity no clubbing, cyanosis or edema Skin no rashes or lesions noted General Skin Exam: no breakdown Neuro oriented x3, CN's II-XII intact bilaterally, moves all extremities, no focal motor deficits and no sensory deficits noted Neuro Narrative: Patient is alert but confused Sensorium / Orientation: awake and alert Speech: speech normal Psych Psych Narrative: Patient is alert but confused Assessment & Plan Assessment/Plan (1) Severe alcohol withdrawal delirium: PLAN: Plan 1. Acute alcohol withdrawal with DTs-supportive care will be given, continue present medications #2 chronic alcoholism-noncompliant with outpatient treatment-complicates care, medical course, recovery, and prognosis #3 chronic depression-patient will remain on Cymbalta #4 hyperlipidemia-patient is on atorvastatin #5 essential hypertension-patient remains on his home medications Total clinical time spent by myself addressing the patient's medical issues, reviewing all his data, and collaborating with patient's care team: 35 minutes Charges/Coding Visit Charges Inpatient E&M: 87927 Subs Hosp L2
--- NOTE | 2022-12-17 21:30 | NURSING ---
Pt sitting in chair at nursing station for safety, given coloring page, book, newspaper and towels to fold due to confusion. fed snack. denies needing to void. will continue to monitor
[2022-12-17] MEDS: traZODone 100 MG Tablet PO (22:37)
[2022-12-17] MEDS: Acetaminophen 325 MG Tablet 650 MG PO (22:38)
[2022-12-17] MEDS: Paroxetine 20 MG Tablet PO (22:39)
[2022-12-17] MEDS: Atorvastatin Calcium 40 MG Tablet PO (22:40)
[2022-12-18] MEDS: Heparin Injection (Vial) 5,000 UNIT/ML VIAL 5000 UNIT SC ×3 (06:34→20:37)
[2022-12-18] MEDS: Phenobarbital 32.4 MG Tablet 64.8 MG PO ×2 (06:34→14:03)
[2022-12-18 06:42] VITALS: BP 138/84; PULSE 86; RESP 16; TEMP 36.4; O2SAT 99
[2022-12-18] MEDS: hydrOXYzine PAM 25 MG Capsule 50 MG PO ×2 (06:48→20:38)
--- NOTE | 2022-12-18 06:50 | NURSING ---
Setting off bed exit this am x2, denies needs. 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 then pt staring at ceiling and asked if the picture up there was hanging crooked. Also talking to unseen persons. Medicated for mild anxiety. Bed exit on.
[2022-12-18] MEDS: Pantoprazole Sodium 40 MG Tablet PO ×2 (07:57→20:38)
[2022-12-18] MEDS: Thiamine Hydrochloride 100 MG Tablet PO (07:57)
[2022-12-18] MEDS: Folic Acid 1 MG Tablet PO (07:57)
[2022-12-18] MEDS: DULoxetine Hcl 60 MG Capsule PO (07:57)
[2022-12-18] MEDS: ARIPiprazole 5 MG Tablet PO (07:57)
[2022-12-18] MEDS: amLODIPine 10 MG Tablet 5 MG PO (07:57)
[2022-12-18 07:58] VITALS: PULSE 86
[2022-12-18] MEDS: Metoprolol Tartrate 100 MG Tablet PO ×2 (07:58→20:38)
[2022-12-18 10:00] VITALS: BP 137/74; PULSE 84; RESP 18; TEMP 36.7; O2SAT 98
[2022-12-18 14:07] VITALS: BP 96/69; PULSE 77; RESP 18; TEMP 36.8; O2SAT 95
--- NOTE | 2022-12-18 18:22 | PCM.PN.HOSP ---
Reason for Visit Reason for Visit: Diagnoses Alcohol use, unspecified with withdrawal delirium (12/15/22) Subjective Subjective Patient was seen and examined today, he is still having some confusion but it appears better than yesterday. I have elected to decrease his phenobarb further, I talked him today about possibly going home tomorrow. Addiction criminal justice social worker also talked again with him today. Patient still does not want to go to an inpatient detox facility, he has not been following up as an outpatient either after discharge from the hospital. Objective Data Objective Data Vital Signs: Vital Signs Temp Pulse Resp BP Pulse Ox O2 Del Method 98.2 F 77 18 96/69 95 Room Air 12/18/22 14:07 12/18/22 14:07 12/18/22 14:07 12/18/22 14:07 12/18/22 14:07 12/18/22 14:07 Oxygen Delivery Method Room Air Weight: 104.9 kg Body Mass Index (BMI) 36.2 Intake & Output: Intake and Output for Last 24 Hours 12/16/22 12/17/22 12/18/22 23:59 23:59 23:59 Intake Total 2940 / 2940 100 / 100 Output Total 300 / 300 0 / 0 Balance 2640 / 2640 0 / 0 100 / 100 Lab / Micro Data Result Diagrams: 12/16/22 05:43 12/16/22 05:43 Physical Exam Const alert and no apparent distress Constitutional Narrative: Patient exhibits mild confusion General Appearance: cooperative, well kempt and well developed Orientation / Consciousness: awake HEENT normocephalic, head/scalp atraumatic and moist oral mucous membranes Eyes PERRL, EOMs intact bilaterally and conjunctivae normal Neck supple, no JVD, thyroid normal and no carotid bruits General: trachea midline Resp normal respiratory effort, no retractions, no use of accessory muscles and clear to auscultation bilaterally Auscultation: Negative for rales, rhonchi or wheezes Cardio regular rate, regular rhythm, S1 normal heart sound, S2 normal heart sound, no murmurs, no rub and no gallops GI normal to inspection, nondistended, normoactive bowel sounds, soft to palpation, non-tender and non-distended Extremity no clubbing, cyanosis or edema Skin no rashes or lesions noted General Skin Exam: no breakdown Neuro oriented x3, CN's II-XII intact bilaterally, no focal motor deficits and no sensory deficits noted Neuro Narrative: Patient exhibits mild confusion Sensorium / Orientation: awake and alert Speech: speech normal Psych Psych Narrative: Patient is mildly confused Assessment & Plan Assessment/Plan (1) Severe alcohol withdrawal delirium: PLAN: Plan 1. Acute alcohol withdrawal with DTs-supportive care will be given, continue present medications, I have decided to decrease the patient's phenobarb #2 chronic alcoholism-noncompliant with outpatient treatment-complicates care, medical course, recovery, and prognosis #3 chronic depression-patient will remain on Cymbalta #4 hyperlipidemia-patient is on atorvastatin #5 essential hypertension-patient remains on his home medications Total clinical time spent by myself addressing the patient's medical issues, reviewing all his data, and collaborating with patient's care team: 35 minutes Charges/Coding Visit Charges Inpatient E&M: 78202 Subs Hosp L2
[2022-12-18 20:30] VITALS: BP 156/96; PULSE 77; RESP 18; TEMP 37.3; O2SAT 97
[2022-12-18 20:38] VITALS: BP 156/96; PULSE 77
[2022-12-18] MEDS: Phenobarbital 32.4 MG Tablet PO (20:38)
[2022-12-18] MEDS: traZODone 100 MG Tablet PO (20:38)
[2022-12-18] MEDS: Atorvastatin Calcium 40 MG Tablet PO (20:38)
[2022-12-18] MEDS: Paroxetine 20 MG Tablet PO (20:38)
[2022-12-18] MEDS: Gabapentin 300 MG Capsule PO (22:17)
[2022-12-19] VITALS (7 sets, daily range): BP systolic 117–149; BP diastolic 87–102; PULSE 76–90; RESP 18; TEMP 36.4–36.9; O2SAT 94–100
[2022-12-19] MEDS: Phenobarbital 32.4 MG Tablet PO ×2 (05:53→13:44)
[2022-12-19] MEDS: Menthol/Lanolin/Calamine/Znox 113 GM Tube 1 APPLIC TOPICAL ×3 (05:54→20:21)
[2022-12-19] MEDS: Heparin Injection (Vial) 5,000 UNIT/ML VIAL 5000 UNIT SC ×3 (05:54→20:21)
[2022-12-19] MEDS: Nystatin Powder 15gm Bottle 1 APPLIC TOPICAL ×3 (05:54→20:22)
[2022-12-19] MEDS: DULoxetine Hcl 60 MG Capsule PO (07:55)
[2022-12-19] MEDS: Pantoprazole Sodium 40 MG Tablet PO ×2 (07:55→20:22)
[2022-12-19] MEDS: Metoprolol Tartrate 100 MG Tablet PO ×2 (07:56→20:22)
[2022-12-19] MEDS: Thiamine Hydrochloride 100 MG Tablet PO (07:56)
[2022-12-19] MEDS: ARIPiprazole 5 MG Tablet PO (07:56)
[2022-12-19] MEDS: Folic Acid 1 MG Tablet PO (07:56)
[2022-12-19] MEDS: amLODIPine 10 MG Tablet 5 MG PO (07:57)
--- NOTE | 2022-12-19 16:47 | CASEMGMT ---
Social Work Pt with multiple visits to hospital over the last year. Persistent confusion. Pt lives alone and no local support system. Pt does have a brother Roby Mccabe in [place] and a sister Shanell Gray in [place]. Referral made to APS to assess for home safety. VM left with PRISCILLA Galvan
--- NOTE | 2022-12-19 18:37 | PN.HOSP_ITS ---
Reason for Visit Reason for Visit: Diagnoses Alcohol use, unspecified with withdrawal delirium (12/15/22) Subjective Subjective Patient was seen and examined today, he still exhibits some confusion, I have decided to stop his phenobarb altogether, I talked with addiction manager social services today, they do not have any new ideas concerning the patient. He refuses to do an inpatient detox program and it is unlikely he will follow-up as an outpatient to [facility]. Objective Data Objective Data Vital Signs: Vital Signs Temp Pulse Resp BP Pulse Ox O2 Del Method 98.5 F 86 18 117/87 H 97 Room Air 12/19/22 14:04 12/19/22 14:04 12/19/22 14:04 12/19/22 14:04 12/19/22 14:04 12/19/22 14:04 Oxygen Delivery Method Room Air Weight: 105.5 kg Body Mass Index (BMI) 36.2 Intake & Output: Intake and Output for Last 24 Hours 12/17/22 12/18/22 12/19/22 23:59 23:59 23:59 Intake Total 100 / 100 Output Total 0 / 0 Balance 0 / 0 100 / 100 Lab / Micro Data Result Diagrams: 12/16/22 05:43 12/16/22 05:43 Physical Exam Const alert Constitutional Narrative: Patient exhibits mild to moderate confusion, he is not agitated General Appearance: cooperative, well kempt and well developed Orientation / Consciousness: awake and confused HEENT normocephalic, head/scalp atraumatic and moist oral mucous membranes Eyes PERRL, EOMs intact bilaterally and conjunctivae normal Neck supple, no JVD, thyroid normal and no carotid bruits General: trachea midline Resp normal respiratory effort, no retractions, no use of accessory muscles and clear to auscultation bilaterally Auscultation: Negative for rales, rhonchi or wheezes Cardio regular rate, regular rhythm, S1 normal heart sound, no murmurs, no rub and no gallops GI normal to inspection, nondistended, normoactive bowel sounds, soft to palpation, non-tender and non-distended Extremity no clubbing, cyanosis or edema Skin no rashes or lesions noted General Skin Exam: no breakdown Neuro oriented x3, CN's II-XII intact bilaterally, no focal motor deficits and no sensory deficits noted Sensorium / Orientation: awake and alert Speech: speech normal Psych affect normal Assessment & Plan Assessment/Plan (1) Severe alcohol withdrawal delirium: PLAN: Plan 1. Acute alcohol withdrawal with DTs-supportive care will be given, continue present medications, I have decided to discontinue his phenobarbital and reevaluate the patient tomorrow for possible discharge home, it is very likely that the patient will return here for alcohol detox again, patient does not seem to understand that it is crucial to follow-up with detox to stop drinking. #2 chronic alcoholism-noncompliant with outpatient treatment-complicates care, medical course, recovery, and prognosis #3 chronic depression-patient will remain on Cymbalta #4 hyperlipidemia-patient is on atorvastatin #5 essential hypertension-patient remains on his home medications Total clinical time spent by myself addressing the patient's medical issues, reviewing all his data, and collaborating with patient's care team: 36 minutes Charges/Coding Visit Charges Inpatient E&M: 58524 Subs Hosp L2
[2022-12-19] MEDS: Paroxetine 20 MG Tablet PO (20:22)
[2022-12-19] MEDS: Atorvastatin Calcium 40 MG Tablet PO (20:22)
[2022-12-19] MEDS: traZODone 100 MG Tablet PO (21:58)
[2022-12-19] MEDS: hydrOXYzine PAM 25 MG Capsule 50 MG PO (21:58)
[2022-12-20] VITALS (8 sets, daily range): BP systolic 114–134; BP diastolic 71–84; PULSE 80–94; RESP 16–18; TEMP 36.6–36.9; O2SAT 93–98
[2022-12-20] MEDS: Heparin Injection (Vial) 5,000 UNIT/ML VIAL 5000 UNIT SC ×3 (05:26→20:35)
[2022-12-20] MEDS: hydrOXYzine PAM 25 MG Capsule 50 MG PO (05:27)
[2022-12-20] MEDS: Nystatin Powder 15gm Bottle 1 APPLIC TOPICAL ×2 (05:27→20:35)
[2022-12-20] MEDS: Menthol/Lanolin/Calamine/Znox 113 GM Tube 1 APPLIC TOPICAL ×2 (05:27→20:35)
[2022-12-20] MEDS: Pantoprazole Sodium 40 MG Tablet PO ×2 (07:35→20:38)
[2022-12-20] MEDS: DULoxetine Hcl 60 MG Capsule PO (07:37)
[2022-12-20] MEDS: Folic Acid 1 MG Tablet PO (07:37)
[2022-12-20] MEDS: ARIPiprazole 5 MG Tablet PO (07:38)
[2022-12-20] MEDS: Thiamine Hydrochloride 100 MG Tablet PO (07:38)
[2022-12-20] MEDS: Metoprolol Tartrate 100 MG Tablet PO ×2 (07:43→20:35)
[2022-12-20] MEDS: amLODIPine 10 MG Tablet 5 MG PO (07:48)
--- NOTE | 2022-12-20 11:00 | CASEMGMT ---
Hospitalist states pt is agreeable to [facility]. Updated SW.
--- NOTE | 2022-12-20 13:47 | PN.HOSP_ITS ---
Reason for Visit Reason for Visit: Diagnoses Alcohol use, unspecified with withdrawal delirium (12/15/22) Subjective Subjective Patient was seen and examined today, he is still mildly confused, I did have a discussion with him about going to an extended care facility for short-term rehab services, he stated that if I felt it was necessary it was okay with him, I asked him about [facility] and he states that that would be fine-he states he was there at one time. Objective Data Objective Data Vital Signs: Vital Signs Temp Pulse Resp BP Pulse Ox O2 Del Method 98.4 F 80 16 129/82 H 97 Room Air 12/20/22 13:31 12/20/22 13:41 12/20/22 13:31 12/20/22 13:31 12/20/22 13:31 12/20/22 13:41 Oxygen Delivery Method Room Air Weight: 106.3 kg Body Mass Index (BMI) 36.2 Intake & Output: Intake and Output for Last 24 Hours 12/18/22 12/19/22 12/20/22 23:59 23:59 23:59 Intake Total 100 / 100 Balance 100 / 100 Lab / Micro Data Result Diagrams: 12/16/22 05:43 12/16/22 05:43 Physical Exam Const alert and no apparent distress General Appearance: cooperative, well kempt and well developed Orientation / Consciousness: awake, oriented to person and oriented to place HEENT normocephalic, head/scalp atraumatic and moist oral mucous membranes Eyes PERRL, EOMs intact bilaterally and conjunctivae normal Neck supple, no JVD, thyroid normal and no carotid bruits General: trachea midline Resp normal respiratory effort, no retractions, no use of accessory muscles and clear to auscultation bilaterally Auscultation: Negative for rales, rhonchi or wheezes Cardio regular rate, regular rhythm, S1 normal heart sound, S2 normal heart sound, no murmurs, no rub and no gallops GI normal to inspection, nondistended, normoactive bowel sounds, soft to palpation, non-tender and non-distended Extremity no clubbing, cyanosis or edema Skin no rashes or lesions noted General Skin Exam: no breakdown Neuro CN's II-XII intact bilaterally, no focal motor deficits and no sensory deficits noted Sensorium / Orientation: awake and alert Speech: speech normal Psych Psych Narrative: Patient exhibits mild confusion but answers some questions appropriately Assessment & Plan Assessment/Plan (1) Severe alcohol withdrawal delirium: PLAN: Plan 1. Acute alcohol withdrawal with DTs-patient is currently off phenobarbital, he still exhibits some confusion so I do not think it is a good idea of discharging him home, he has agreed to go to an extended care facility for short-term rehab services, I talked with discharge planning about this today. #2 chronic alcoholism-noncompliant with outpatient treatment-complicates care, medical course, recovery, and prognosis #3 chronic depression-patient will remain on Cymbalta #4 hyperlipidemia-patient is on atorvastatin #5 essential hypertension-patient remains on his home medications Total clinical time spent by myself addressing the patient's medical issues, reviewing all his data, and collaborating with patient's care team: 36 minutes Charges/Coding Visit Charges Inpatient E&M: 55033 Subs Hosp L2
--- NOTE | 2022-12-20 16:35 | CASEMGMT ---
Social Work Note SW was informed by RN SONA patient was interested in referral to [facility]. SW printed a list of SNF options in network with patient's insurance in [facility]. Patient is seated in nursing area for safety reasons. SW introduced herself to patient and attempted to review the list, however, patient wants list placed in his room. Patient in agreement for referral to be sent to [facility]. WALT sent referral to [facility] via [facility]. Plan: [facility] pending acceptance and precert Sofi Mccabe YARN TWISTER, STACIE
[2022-12-20] MEDS: Atorvastatin Calcium 40 MG Tablet PO (20:35)
[2022-12-20] MEDS: traZODone 100 MG Tablet PO (20:35)
[2022-12-20] MEDS: Paroxetine 20 MG Tablet PO (20:37)
[2022-12-21 03:00] VITALS: BP 134/100; PULSE 77; RESP 18; TEMP 36.4; O2SAT 99
[2022-12-21] MEDS: Heparin Injection (Vial) 5,000 UNIT/ML VIAL 5000 UNIT SC (05:41)
[2022-12-21] MEDS: Menthol/Lanolin/Calamine/Znox 113 GM Tube 1 APPLIC TOPICAL ×3 (05:42→20:01)
[2022-12-21] MEDS: Nystatin Powder 15gm Bottle 1 APPLIC TOPICAL ×3 (05:42→20:02)
[2022-12-21 08:56] VITALS: BP 126/87; PULSE 91; RESP 18; TEMP 37.1; O2SAT 96
[2022-12-21 08:58] VITALS: PULSE 91
[2022-12-21] MEDS: Folic Acid 1 MG Tablet PO (08:58)
[2022-12-21] MEDS: amLODIPine 10 MG Tablet 5 MG PO (08:58)
[2022-12-21] MEDS: Metoprolol Tartrate 100 MG Tablet PO ×2 (08:58→20:02)
[2022-12-21] MEDS: DULoxetine Hcl 60 MG Capsule PO (08:58)
[2022-12-21] MEDS: Pantoprazole Sodium 40 MG Tablet PO ×2 (08:58→20:03)
[2022-12-21] MEDS: Thiamine Hydrochloride 100 MG Tablet PO (08:58)
[2022-12-21] MEDS: ARIPiprazole 5 MG Tablet PO (08:59)
[2022-12-21 17:03] VITALS: BP 146/89; PULSE 82; RESP 17; TEMP 36.6; O2SAT 95
--- NOTE | 2022-12-21 17:25 | PCM.PN.HOSP ---
Reason for Visit Reason for Visit: Diagnoses Alcohol use, unspecified with withdrawal delirium (12/15/22) Subjective Subjective Patient was seen and examined today, he appears comfortable at rest in bed, patient is no longer on any phenobarbital. Objective Data Objective Data Vital Signs: Vital Signs Temp Pulse Resp BP Pulse Ox O2 Del Method 98 F 82 17 146/89 H 95 Room Air 12/21/22 17:03 12/21/22 17:03 12/21/22 17:03 12/21/22 17:03 12/21/22 17:03 12/21/22 17:03 Oxygen Delivery Method Room Air Weight: 105.188 kg Body Mass Index (BMI) 36.2 Intake & Output: Intake and Output for Last 24 Hours 12/19/22 12/20/22 12/21/22 23:59 23:59 23:59 Intake Total 240 / 240 Balance 240 / 240 Lab / Micro Data Result Diagrams: 12/16/22 05:43 12/16/22 05:43 Physical Exam Const alert, no apparent distress and healthy appearing General Appearance: cooperative, well kempt and well developed Orientation / Consciousness: awake, oriented to person and oriented to place HEENT normocephalic, head/scalp atraumatic and moist oral mucous membranes Eyes PERRL, EOMs intact bilaterally and conjunctivae normal Neck supple, no JVD, thyroid normal and no carotid bruits General: trachea midline Resp normal respiratory effort, no retractions, no use of accessory muscles and clear to auscultation bilaterally Auscultation: Negative for rales, rhonchi or wheezes Cardio regular rate, regular rhythm, S1 normal heart sound, S2 normal heart sound, no murmurs, no rub and no gallops GI normal to inspection, nondistended, normoactive bowel sounds, soft to palpation, non-tender and non-distended Extremity no clubbing, cyanosis or edema Skin no rashes or lesions noted General Skin Exam: no breakdown Neuro oriented x3, CN's II-XII intact bilaterally, moves all extremities, no focal motor deficits and no sensory deficits noted Sensorium / Orientation: awake, alert, oriented to person and oriented to place Speech: speech normal Psych affect normal Assessment & Plan Assessment/Plan (1) Severe alcohol withdrawal delirium: PLAN: Plan 1. Acute alcohol withdrawal with DTs-patient is currently off phenobarbital, he still exhibits some confusion so I do not think it is a good idea of discharging him home, he has agreed to go to an extended care facility for short-term rehab services. We will need pre-CERT for this, we will plan for [facility]. #2 chronic alcoholism-noncompliant with outpatient treatment-complicates care, medical course, recovery, and prognosis #3 chronic depression-patient will remain on Cymbalta #4 hyperlipidemia-patient is on atorvastatin #5 essential hypertension-patient remains on his home medications Total clinical time spent by myself addressing the patient's medical issues, reviewing all his data, and collaborating with patient's care team: 36 minutes Charges/Coding Visit Charges Inpatient E&M: 89461 Subs Hosp L2
[2022-12-21 19:57] VITALS: BP 139/94; PULSE 87; RESP 18; TEMP 37.2; O2SAT 96
[2022-12-21 20:02] VITALS: BP 139/94; PULSE 87
[2022-12-21] MEDS: Atorvastatin Calcium 40 MG Tablet PO (20:02)
[2022-12-21] MEDS: Paroxetine 20 MG Tablet PO (20:03)
[2022-12-22] VITALS (8 sets, daily range): BP systolic 113–147; BP diastolic 78–82; PULSE 79–93; RESP 18; TEMP 36.4–37; O2SAT 94–97
[2022-12-22] MEDS: Nystatin Powder 15gm Bottle 1 APPLIC TOPICAL ×3 (03:49→22:56)
[2022-12-22] MEDS: Menthol/Lanolin/Calamine/Znox 113 GM Tube 1 APPLIC TOPICAL ×3 (03:49→22:56)
--- NOTE | 2022-12-22 08:17 | PN.HOSP_ITS ---
Reason for Visit Reason for Visit: Diagnoses Alcohol use, unspecified with withdrawal delirium (12/15/22) Subjective Subjective Denies complaints Objective Data Objective Data Vital Signs: Vital Signs Temp Pulse Resp BP Pulse Ox O2 Del Method 37.0 C 79 18 147/78 H 97 Room Air 12/22/22 03:00 12/22/22 03:00 12/22/22 03:00 12/22/22 03:00 12/22/22 03:00 12/22/22 03:00 Oxygen Delivery Method Room Air Weight: 103 kg Body Mass Index (BMI) 36.2 Intake & Output: Intake and Output for Last 24 Hours 12/20/22 12/21/22 12/22/22 23:59 23:59 23:59 Intake Total 240 / 240 Balance 240 / 240 Lab / Micro Data Result Diagrams: 12/16/22 05:43 12/16/22 05:43 Physical Exam Const Constitutional Narrative: sitting in chair in nurses station with crayons and partly colored flower picture. HEENT head/scalp atraumatic and moist oral mucous membranes Assessment & Plan Assessment/Plan (1) Severe alcohol withdrawal delirium: PLAN: Never deescalated to the point of requiring restraints or Precedex completed phenobarbital chronic alcoholism-noncompliant with outpatient treatment-complicates care, medical course, recovery, and prognosis thiamine and folate I do not feel the patient had delirium tremens based on the information that was previously documented. Patient does seem confused though, however. Unclear if patient does have chronic Warnicke's encephalopathy. Recommend continue with thiamine and folate upon discharge. Consideration of following up with neurology as outpatient. (2) Debility: PLAN: able to walk 400 feet per therapy notes evaluation underway for [facility] PLAN: Plan Chronic conditions: * chronic depression-patient will remain on Cymbalta * hyperlipidemia-patient is on atorvastatin * essential hypertension-patient remains on his home medications Charges/Coding Visit Charges Inpatient E&M: 34617 Subs Hosp L1
--- NOTE | 2022-12-22 08:52 | CASEMGMT ---
Social Work SW called Katie ([phone]) at [facility] to inform of referral being sent over the weekend via [facility]. Katie did not answer, WALT left with contact number. PRISCILLA Christian
[2022-12-22] MEDS: Metoprolol Tartrate 100 MG Tablet PO ×2 (09:22→22:57)
[2022-12-22] MEDS: amLODIPine 10 MG Tablet 5 MG PO (09:22)
[2022-12-22] MEDS: Folic Acid 1 MG Tablet PO (09:22)
[2022-12-22] MEDS: Pantoprazole Sodium 40 MG Tablet PO ×2 (09:23→22:58)
[2022-12-22] MEDS: Thiamine Hydrochloride 100 MG Tablet PO (09:23)
[2022-12-22] MEDS: DULoxetine Hcl 60 MG Capsule PO (09:23)
[2022-12-22] MEDS: ARIPiprazole 5 MG Tablet PO (09:24)
--- NOTE | 2022-12-22 11:02 | CASEMGMT ---
Addendum entered by Celia Harry 12/22/22 14:27: SW sent email to Rajani Gan at [facility] to confirm Medicaid insurances for pt. Will await response. Addendum entered by Celai Harry 12/22/22 13:12: Akila found placement at [facility] in [place]. The drawing machine operator called to speak to pt. After intake was complete SW was informed that pt does not have traditional medicaid, as previously thought, so this inpatient facility not able to accept pt. This means pt would also not be able to go to SNF under medicaid and cannot go skilled as pt does not need skilled therapy. Original Note: Social Work Pt sitting in nurse station during visit from MD Carl. spoke to pt about discharge plan and sobriety. informed pt of several admits to [facility] and reviewed pt plan for sobriety. Pt informed that current plan is to go to [facility] as people believe he is not safe to return home on his own. MD Carl encouraged pt to work on sobriety. After MD left pt spoke to Mine Analyst about not wanting to go to [facility]. SW spoke to pt and focused on inpatient treatment and the benefits pt would experience for working on his sobriety. Pt stated this plan would be better and is open to going. WALT called master lay out specialist, Akila Croft, to join conversation. Akila joined and pt informed, in own words that inpatient substance abuse treatment at a residential facility would be preference over SNF. Akila to look into placement for pt. PLAN: Inpatient substance abuse treatment PRISCILLA Christian
--- NOTE | 2022-12-22 14:27 | CASEMGMT ---
Social Work Katie at [facility] reached out. Pt is clinically approved but SNF is waiting for confirmation of benefits before allowing pt to admit. SW had conversation with pt regarding plan to go to [facility]. Pt stated alright with this plan since unable to go to inpatient treatment. Will await information from Katie to be returned. PRISCILLA Christian
[2022-12-22] MEDS: Atorvastatin Calcium 40 MG Tablet PO (22:57)
[2022-12-22] MEDS: Paroxetine 20 MG Tablet PO (22:58)
[2022-12-23 02:04] VITALS: BP 143/85; PULSE 80; RESP 18; TEMP 36.4; O2SAT 97
[2022-12-23] MEDS: Menthol/Lanolin/Calamine/Znox 113 GM Tube 1 APPLIC TOPICAL ×3 (06:29→20:34)
[2022-12-23] MEDS: Nystatin Powder 15gm Bottle 1 APPLIC TOPICAL ×3 (06:29→20:36)
[2022-12-23 07:33] VITALS: BP 134/87; PULSE 79; RESP 18; TEMP 36.9; O2SAT 94
--- NOTE | 2022-12-23 07:39 | PN.HOSP_ITS ---
Reason for Visit Reason for Visit: Diagnoses Alcohol use, unspecified with withdrawal delirium (12/15/22) Other malaise (12/15/22) Subjective Subjective Denies any complaints Objective Data Objective Data Vital Signs: Vital Signs Temp Pulse Resp BP Pulse Ox O2 Del Method 36.9 C 79 18 134/87 H 94 Room Air 12/23/22 07:33 12/23/22 07:33 12/23/22 07:33 12/23/22 07:33 12/23/22 07:33 12/23/22 07:33 Oxygen Delivery Method Room Air Weight: 103 kg Body Mass Index (BMI) 36.2 Intake & Output: Intake and Output for Last 24 Hours 12/21/22 12/22/22 12/23/22 23:59 23:59 23:59 Intake Total 240 / 240 400 / 400 200 / 200 Balance 240 / 240 400 / 400 200 / 200 Lab / Micro Data Result Diagrams: 12/16/22 05:43 12/16/22 05:43 Physical Exam Narrative Up in chair at the nurses station. Appropriate. Alert and oriented x3. 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 When told that he was here for alcohol withdrawal he states that he was going to say that. He does state that he does require a surgery on his eye for his retina as there is swelling. Dissipating that he would say Da I asked him where his retina specialist was and he told me in [place]. Not sure that is accurate but it seems reasonable. Const alert and no apparent distress Assessment & Plan Assessment/Plan (1) Severe alcohol withdrawal delirium: PLAN: Never deescalated to the point of requiring restraints or Precedex completed phenobarbital chronic alcoholism-noncompliant with outpatient treatment-complicates care, medical course, recovery, and prognosis thiamine and folate I do not feel the patient had delirium tremens based on the information that was previously documented. Patient does seem confused though, however. Unclear if patient does have chronic Warnicke's encephalopathy. Recommend continue with thiamine and folate upon discharge. Consideration of following up with neurology as outpatient. (2) Debility: PLAN: able to walk 400 feet per therapy notes Patient does not have any skilled needs for nursing home facility. PLAN: Plan Chronic conditions: * chronic depression-patient will remain on Cymbalta * hyperlipidemia-patient is on atorvastatin * essential hypertension-patient remains on his home medications Patient is alert and oriented x3 psych cannot deem him incompetent though he has certainly made bad decisions and there is certainly concerns from previous behavior that he may have some underlying mild cognitive impairment or even dementia. This would require further outpatient evaluation with geriatrics and/or neurology.
--- NOTE | 2022-12-23 08:17 | CASEMGMT ---
Social Work SW emailing with Rajani Gan at [facility] to confirm pt medicaid coverage. Pt has QMB, with no correction coverage. SW asked Rajani what needs to happen for pt to qualify for correction coverage. PRISCILLA Christian
--- NOTE | 2022-12-23 08:25 | CASEMGMT ---
Social Work SW sent therapy notes to [facility] for insurance auth via [employer]. PRISCILLA Christian
[2022-12-23 08:46] VITALS: PULSE 79; O2SAT 94
[2022-12-23] MEDS: Pantoprazole Sodium 40 MG Tablet PO ×2 (08:46→20:35)
[2022-12-23] MEDS: Folic Acid 1 MG Tablet PO (08:46)
[2022-12-23] MEDS: amLODIPine 10 MG Tablet 5 MG PO (08:46)
[2022-12-23] MEDS: Metoprolol Tartrate 100 MG Tablet PO ×2 (08:46→20:36)
[2022-12-23] MEDS: Thiamine Hydrochloride 100 MG Tablet PO (08:46)
[2022-12-23] MEDS: ARIPiprazole 5 MG Tablet PO (08:46)
[2022-12-23] MEDS: DULoxetine Hcl 60 MG Capsule PO (08:46)
--- NOTE | 2022-12-23 09:42 | CASEMGMT ---
Addendum entered by Chelly Montelongo 12/23/22 15:28: Received info from [employer] for information needed for medicaid senior care coverage eligibility. Printed and provided to WALT. Addendum entered by Chelly Montelongo 12/23/22 12:41: TC to Rajani Gan at [facility] [employer] [facility] to try to obtain information for steps to see if pt would be eligible for medicaid senior care coverage. Phone prompts stated the number was not for healthcare providers. Email to Rajani for this information. Original Note: Spoke with hospitalist, does not feel guardianship needs to be pursued. Plan to dc pt home today. TC to Rakan in [facility], they are unable to assist pt with any services. Spoke with WALT regarding passport.
--- NOTE | 2022-12-23 10:03 | DS.PCM_ITS ---
Providers Date of Admission: 12/15/22 Primary Care Physician: Graciela Ashley DO Reason For Visit: ACUTE ALCOHOL WITHDRAWL Diagnosis Discharge Diagnosis (1) Severe alcohol withdrawal delirium: Status: Acute Code(s): F10.931 - Alcohol use, unspecified with withdrawal delirium Plan: Never deescalated to the point of requiring restraints or Precedex completed phenobarbital chronic alcoholism-noncompliant with outpatient treatment-complicates care, medical course, recovery, and prognosis thiamine and folate I do not feel the patient had delirium tremens based on the information that was previously documented. Patient does seem confused though, however. Unclear if patient does have chronic Warnicke's encephalopathy. Recommend continue with thiamine and folate upon discharge. Consideration of following up with neurology as outpatient. (2) Debility: Status: Acute Code(s): R53.81 - Other malaise Plan: able to walk 400 feet per therapy notes Patient does not have any skilled needs for [facility]. Plan Chronic conditions: * chronic depression-patient will remain on Cymbalta * hyperlipidemia-patient is on atorvastatin * essential hypertension-patient remains on his home medications Patient is alert and oriented x3 psych cannot deem him incompetent though he has certainly made bad decisions and there is certainly concerns from previous behavior that he may have some underlying mild cognitive impairment or even dementia. This would require further outpatient evaluation with geriatrics and/or neurology. Medications at Discharge Home Medications metoprolol tartrate 100 mg tablet 100 mg PO BID bp 10/03/19 atorvastatin 40 mg tablet 40 tab PO DAILY cholesterol 05/08/22 duloxetine 60 mg capsule,delayed release 60 cap PO DAILY mood 05/08/22 aripiprazole 5 mg tablet 5 mg PO DAILY mood 05/26/22 folic acid 1 mg tablet 1 mg PO BREAKFAST #30 tabs 11/13/22 thiamine HCl (vitamin B1) 100 mg tablet (Vitamin B-1) 100 mg PO DAILYCM #30 tabs 11/13/22 amlodipine 5 mg tablet 5 mg PO DAILY BP 12/15/22 Weight / BMI Weight Weight: 103 kg Body Mass Index (BMI) 36.2 ABG / Lab / Microbiology Data Result Diagrams: 12/16/22 05:43 12/16/22 05:43 D/C Instructions Discharge Diet: No restrictions Meaningful Use Info Meaningful Use Diagnoses (Choose all that apply): None applicable Discharge Plan Admission Admit Date/Time: 12/15/22 17:21 Primary Reason for Your Visit: alcohol withdrawal Attending Provider: Turner Carl Primary Care Provider: Graciela Ashley Consulting Providers: Jenni Nesbitt ; Jorge Gardner Discharge Orders/Prescriptions Prescriptions: Continued metoprolol tartrate 100 mg tablet 100 mg PO BID duloxetine 60 mg capsule,delayed release(DR/EC) 60 cap PO DAILY atorvastatin 40 mg tablet 40 tab PO DAILY Label Comments: 1 tablet by mouth as directed aripiprazole 5 mg Tablet 5 mg PO DAILY thiamine HCl (vitamin B1) [Vitamin B-1] 100 mg Tablet 100 mg PO DAILYCM Qty: 30 2RF folic acid 1 mg Tablet 1 mg PO BREAKFAST Qty: 30 2RF amlodipine 5 mg tablet 5 mg PO DAILY Referrals / Follow Up: [facility] [Provider Group] - Within 1 Month Graciela Ashley DO [Primary Care Provider] - Within 2 Weeks Disposition Disposition (needs filled in before D/C Order can be placed): Home, Self Care Charges/Coding Visit Charges Inpatient E&M: 00133 Disch Hosp
--- NOTE | 2022-12-23 10:28 | PHA.DC.MR ---
Pharmacy Service has performed discharge medication reconciliation for this patient. The patient's discharge medication list was reviewed for discrepancies and discrepancies were resolved. Home Medications metoprolol tartrate 100 mg tablet 100 mg PO BID bp 10/03/19 atorvastatin 40 mg tablet 40 tab PO DAILY cholesterol 05/08/22 duloxetine 60 mg capsule,delayed release 60 cap PO DAILY mood 05/08/22 aripiprazole 5 mg tablet 5 mg PO DAILY mood 05/26/22 folic acid 1 mg tablet 1 mg PO BREAKFAST #30 tabs 11/13/22 thiamine HCl (vitamin B1) 100 mg tablet (Vitamin B-1) 100 mg PO DAILYCM #30 tabs 11/13/22 amlodipine 5 mg tablet 5 mg PO DAILY BP 12/15/22
--- NOTE | 2022-12-23 10:54 | CASEMGMT ---
Social Work SW spoke to pt regarding Pass[employer] services. Offered education on how these services can be beneficial for pt. Pt is agreeable to allow SW send a referral. Pt stated Oh that might be good for me and looked happy. Referral sent via [employer] online website. PRISCILLA Christian
--- NOTE | 2022-12-23 13:58 | CASEMGMT ---
Social Work Recieved message from Katie at [facility]. Precert to be started today. PLAN: Jose, pending precert PRISCILLA Christian
[2022-12-23 14:15] VITALS: BP 139/94; PULSE 90; RESP 18; TEMP 36.9; O2SAT 95
--- NOTE | 2022-12-23 16:14 | CASEMGMT ---
Social Work SW spoke with pt following update from [facility] worker, Rajani Gan that additional resources needed for medicaid verification. Rajani sent the information and WALT worked with pt to complete a resource list. SW sent the information back to [facility] via fax. Pt hopeful that medicaid will be approved soon so pt can go to inpatient addiction treatment program. Chelly SHEIKH CM, emailed Rajani at [facility] to inform information that was requested had been sent back via fax. PRISCILLA Christian
[2022-12-23 20:28] VITALS: BP 144/102; PULSE 88; RESP 18; TEMP 36.7; O2SAT 95
[2022-12-23] MEDS: Atorvastatin Calcium 40 MG Tablet PO (20:35)
[2022-12-23] MEDS: Paroxetine 20 MG Tablet PO (20:35)
[2022-12-23 20:36] VITALS: BP 144/102; PULSE 88
[2022-12-24 06:00] VITALS: BMI 35.9
[2022-12-24 06:54] VITALS: BP 132/85; PULSE 84; RESP 16; TEMP 36.5; O2SAT 98
[2022-12-24] MEDS: Menthol/Lanolin/Calamine/Znox 113 GM Tube 1 APPLIC TOPICAL ×3 (06:55→20:39)
[2022-12-24] MEDS: Nystatin Powder 15gm Bottle 1 APPLIC TOPICAL ×3 (06:55→20:38)
--- NOTE | 2022-12-24 07:40 | PN.HOSP_ITS ---
Reason for Visit Reason for Visit: Diagnoses Alcohol use, unspecified with withdrawal delirium (12/15/22) Other malaise (12/15/22) Subjective Subjective Denies any new complaint Objective Data Objective Data Vital Signs: Vital Signs Temp Pulse Resp BP Pulse Ox O2 Del Method 36.5 C L 84 16 132/85 H 98 Room Air 12/24/22 06:54 12/24/22 06:54 12/24/22 06:54 12/24/22 06:54 12/24/22 06:54 12/24/22 06:54 Oxygen Delivery Method Room Air Weight: 103 kg Body Mass Index (BMI) 36.2 Intake & Output: Intake and Output for Last 24 Hours 12/22/22 12/23/22 12/24/22 23:59 23:59 23:59 Intake Total 400 / 400 200 / 200 300 / 300 Balance 400 / 400 200 / 200 300 / 300 Lab / Micro Data Result Diagrams: 12/16/22 05:43 12/16/22 05:43 Physical Exam Const Constitutional Narrative: Lying in bed. No acute distress. HEENT head/scalp atraumatic and moist oral mucous membranes Assessment & Plan Assessment/Plan (1) Severe alcohol withdrawal delirium: PLAN: Never deescalated to the point of requiring restraints or Precedex completed phenobarbital chronic alcoholism-noncompliant with outpatient treatment-complicates care, medical course, recovery, and prognosis thiamine and folate I do not feel the patient had delirium tremens based on the information that was previously documented. Patient does seem confused though, however. Unclear if patient does have chronic Warnicke's encephalopathy. Recommend continue with thiamine and folate upon discharge. Consideration of following up with neurology as outpatient. (2) Debility: PLAN: able to walk 400 feet per therapy notes Patient does not have any skilled needs for [facility] facility. PLAN: Plan Chronic conditions: * chronic depression-patient will remain on Cymbalta * hyperlipidemia-patient is on atorvastatin * essential hypertension-patient remains on his home medications Patient is alert and oriented x3 psych cannot deem him incompetent though he has certainly made bad decisions and there is certainly concerns from previous behavior that he may have some underlying mild cognitive impairment or even dementia. This would require further outpatient evaluation with geriatrics and/or neurology. Disposition: Case management has been discussing with ALEJANDRINA and obtaining additional resources for Medicaid verification. Looking to get Medicaid approval the patient go to shelter. Charges/Coding Visit Charges Inpatient E&M: 12945 Subs Hosp L1
[2022-12-24 08:05] VITALS: O2SAT 97
--- NOTE | 2022-12-24 08:07 | CASEMGMT ---
Social Work Late entry for 12/23. WALT spoke to Silvano at [facility]. WALT gave Silvano update on pt case regarding events leading up to pt being admitted to [facility] and the discharge plan. Silvano voiced appreciation for updates and asked to be notified when pt discharges. PRISCILLA Christian
[2022-12-24] MEDS: Pantoprazole Sodium 40 MG Tablet PO ×2 (08:39→20:39)
[2022-12-24] MEDS: ARIPiprazole 5 MG Tablet PO (08:39)
[2022-12-24] MEDS: Folic Acid 1 MG Tablet PO (08:39)
[2022-12-24] MEDS: Thiamine Hydrochloride 100 MG Tablet PO (08:39)
[2022-12-24 08:40] VITALS: PULSE 86
[2022-12-24] MEDS: DULoxetine Hcl 60 MG Capsule PO (08:40)
[2022-12-24] MEDS: Metoprolol Tartrate 100 MG Tablet PO ×2 (08:40→20:39)
[2022-12-24] MEDS: amLODIPine 10 MG Tablet 5 MG PO (08:40)
--- NOTE | 2022-12-24 10:26 | CASEMGMT ---
Received email from Rajani at [facility], pt has been approved starting 12/03/2022 Recip #? [id number]. Updated SW.
--- NOTE | 2022-12-24 10:48 | ADDICTION ---
This telegraphic typewriter operator met with pt about d/c planning. Pt believes that he is in [facility]. He reports that he is getting ready to attend the [employer] but has to Work for the [facility] prior to his admission. Pt is a 72 [id number]. Based on this workers assessment, auditory hallucinations seem to be current. He was able to answer some questions accurately but it was back and forth. Pt reports that he wants to go home and does not want treatment of any kind. He was able to give me his current address.
--- NOTE | 2022-12-24 11:16 | CASEMGMT ---
Addendum entered by Celia Harry 12/29/22 11:30: Late entry for 12/24/22 at 14:00: SW spoke with tank house supervisor after staff meeting regarding pt case. SW was advised to continue following pt case and see what happens regarding pt confusion. Addendum entered by Celia Harry 12/24/22 14:45: Upon discussion, Pt continues to inform of wanting to go home. Pt is at baseline, able to give correct address, season, names of family and previous work history. Pt remains confused regarding time, however this is normal for this pt during previous admissions. MD Carl plans to discharge pt today. Original Note: Social Work SW in to inform pt that medicaid coverage will not cover SA treatment at residential but that LTC coverage has been obtained if pt wants [place] go [facility]. Pt refused [facility]. Stated I want to go home, its been 5 weeks Pt still exhibiting some confusion on timeline. MD Carl updated of pt wishes. Will confer with case management team and discuss discharge plan at staff meeting this afternoon. PRISCILLA Christian
[2022-12-24 12:00] VITALS: BP 147/89; PULSE 75; RESP 18; TEMP 36.8; O2SAT 94
--- NOTE | 2022-12-24 14:46 | DS.PCM_ITS ---
Providers Date of Admission: 12/15/22 Primary Care Physician: Graciela Ashley DO Reason For Visit: ACUTE ALCOHOL WITHDRAWL Diagnosis Discharge Diagnosis (1) Severe alcohol withdrawal delirium: Status: Acute Code(s): F10.931 - Alcohol use, unspecified with withdrawal delirium Plan: Never deescalated to the point of requiring restraints or Precedex completed phenobarbital chronic alcoholism-noncompliant with outpatient treatment-complicates care, medical course, recovery, and prognosis thiamine and folate I do not feel the patient had delirium tremens based on the information that was previously documented. Patient does seem confused though, however. Unclear if patient does have chronic Warnicke's encephalopathy. Recommend continue with thiamine and folate upon discharge. Consideration of following up with neurology as outpatient. (2) Debility: Status: Acute Code(s): R53.81 - Other malaise Plan: able to walk 400 feet per therapy notes Patient does not have any skilled needs for alf facility. Plan Chronic conditions: * chronic depression-patient will remain on Cymbalta * hyperlipidemia-patient is on atorvastatin * essential hypertension-patient remains on his home medications Patient is alert and oriented x3 psych cannot deem him incompetent though he has certainly made bad decisions and there is certainly concerns from previous behavior that he may have some underlying mild cognitive impairment or even dementia. This would require further outpatient evaluation with geriatrics and/or neurology. Disposition: Case management has been discussing with ALEJANDRINA and obtaining additional resources for Medicaid verification. Looking to get Medicaid approval the patient go to retirement. Medications at Discharge Home Medications metoprolol tartrate 100 mg tablet 100 mg PO BID bp 10/03/19 atorvastatin 40 mg tablet 40 tab PO DAILY cholesterol 05/08/22 duloxetine 60 mg capsule,delayed release 60 cap PO DAILY mood 05/08/22 aripiprazole 5 mg tablet 5 mg PO DAILY mood 05/26/22 folic acid 1 mg tablet 1 mg PO BREAKFAST #30 tabs 11/13/22 thiamine HCl (vitamin B1) 100 mg tablet (Vitamin B-1) 100 mg PO DAILYCM #30 tabs 11/13/22 amlodipine 5 mg tablet 5 mg PO DAILY BP 12/15/22 Weight / BMI Weight Weight: 103.9 kg Body Mass Index (BMI) 35.9 ABG / Lab / Microbiology Data Result Diagrams: 12/16/22 05:43 12/16/22 05:43 D/C Instructions Discharge Diet: No restrictions Meaningful Use Info Meaningful Use Diagnoses (Choose all that apply): None applicable Discharge Plan Admission Admit Date/Time: 12/15/22 17:21 Primary Reason for Your Visit: alcohol withdrawal Attending Provider: Turner Carl Primary Care Provider: Graciela Ashley Consulting Providers: Jenni Nesbitt ; Jorge Gardner Discharge Orders/Prescriptions Prescriptions: Continued metoprolol tartrate 100 mg tablet 100 mg PO BID duloxetine 60 mg capsule,delayed release(DR/EC) 60 cap PO DAILY atorvastatin 40 mg tablet 40 tab PO DAILY Label Comments: 1 tablet by mouth as directed aripiprazole 5 mg Tablet 5 mg PO DAILY thiamine HCl (vitamin B1) [Vitamin B-1] 100 mg Tablet 100 mg PO DAILYCM Qty: 30 2RF folic acid 1 mg Tablet 1 mg PO BREAKFAST Qty: 30 2RF amlodipine 5 mg tablet 5 mg PO DAILY Referrals / Follow Up: [facility] [Provider Group] - Within 1 Month Graciela Ashley DO [Primary Care Provider] - Within 2 Weeks Disposition Disposition (needs filled in before D/C Order can be placed): Home, Self Care Charges/Coding Addendum Addendum: Staff try to look to get the patient into a retirement, however the patient declined. Patient want to go into a long-term addiction program but that they declined to have him. Patient has been alert and oriented x3 though continues to make bad decisions and has higher level processing difficulties. He certainly not ideal to return home but there is nothing additional from [facility] ient medical side that warrants keeping him in the hospital. Patient has declined having his brother contacted for assistance. His brother be the next of kin. Visit Charges Inpatient E&M: 84496 Disch Hosp
--- NOTE | 2022-12-24 15:30 | CASEMGMT ---
Addendum entered by Celia Harry 12/24/22 15:43: WALT called Silvano at [facility] to inform that pt will be discharged home today. Left voicemail with information and call back number. Original Note: Social Work SW in to pt room to complete mini mental exam. Pt scored 9/10 on orientation, 3/3 on registration, 5/5 on attention and calculation, 3/3 on recall and 9/9 on Language. Pt expressed frustration with being at hospital so long and feels as if being held here against wishes to leave and return. SW validated pt feelings, discussed concern for pt safety. SW informed pt that discharge order is already in. Pt put at ease with this information. PRISCILLA Christian
--- NOTE | 2022-12-24 17:52 | NURSING ---
pt talking to carrots on dinner tray, telling them what good little carrots they are
--- NOTE | 2022-12-24 18:44 | NURSING ---
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
[2022-12-24 20:39] VITALS: BP 121/84; PULSE 79; RESP 17; TEMP 36.9; O2SAT 97
[2022-12-24] MEDS: Atorvastatin Calcium 40 MG Tablet PO (20:39)
[2022-12-24] MEDS: traZODone 100 MG Tablet PO (20:39)
[2022-12-24] MEDS: Paroxetine 20 MG Tablet PO (20:43)
[2022-12-25 02:10] VITALS: BP 125/86; PULSE 58; RESP 16; TEMP 36.7; O2SAT 96
[2022-12-25 04:16] VITALS: BMI 35.2
[2022-12-25] MEDS: Menthol/Lanolin/Calamine/Znox 113 GM Tube 1 APPLIC TOPICAL (06:36)
[2022-12-25] MEDS: Nystatin Powder 15gm Bottle 1 APPLIC TOPICAL (06:36)
--- NOTE | 2022-12-25 08:08 | PN.HOSP_ITS ---
Reason for Visit Reason for Visit: Diagnoses Alcohol use, unspecified with withdrawal delirium (12/15/22) Other malaise (12/15/22) Subjective Subjective Feels well. No events today or overnight. Objective Data Objective Data Vital Signs: Vital Signs Temp Pulse Resp BP Pulse Ox O2 Del Method 36.7 C 58 L 16 125/86 H 96 Room Air 12/25/22 02:10 12/25/22 02:10 12/25/22 02:10 12/25/22 02:10 12/25/22 02:10 12/25/22 02:10 Oxygen Delivery Method Room Air Weight: 102 kg Body Mass Index (BMI) 35.2 Intake & Output: Intake and Output for Last 24 Hours 12/23/22 12/24/22 12/25/22 23:59 23:59 23:59 Intake Total 200 / 200 1400 / 1400 250 / 250 Balance 200 / 200 1400 / 1400 250 / 250 Lab / Micro Data Result Diagrams: 12/16/22 05:43 12/16/22 05:43 Physical Exam Const Constitutional Narrative: Open the side of the bed. No acute distress. Pleasant. Alert and oriented x3. Knows that he is here for alcohol withdrawal. Does recall the event where he had to be picked up by police because he was wandering into [facility]. States he has no indication why he was wandering but feels comfortable going home. Assessment & Plan Assessment/Plan (1) Severe alcohol withdrawal delirium: PLAN: Ruled out never deescalated to the point of requiring restraints or Precedex completed phenobarbital chronic alcoholism-noncompliant with outpatient treatment-complicates care, medical course, recovery, and prognosis thiamine and folate I do not feel the patient had delirium tremens based on the information that was previously documented. Patient does seem confused though, however. Unclear if patient does have chronic Warnicke's encephalopathy. Recommend continue with thiamine and folate upon discharge. Consideration of following up with neurology as outpatient. (2) Debility: PLAN: able to walk 400 feet per therapy notes Patient does not have any skilled needs for residential facility. PLAN: Plan Chronic conditions: * chronic depression-patient will remain on Cymbalta * hyperlipidemia-patient is on atorvastatin * essential hypertension-patient remains on his home medications Patient is alert and oriented x3 psych cannot deem him incompetent though he has certainly made bad decisions and there is certainly concerns from previous behavior that he may have some underlying mild cognitive impairment or even dementia. This would require further outpatient evaluation with geriatrics and/or neurology. Disposition: Currently patient is alert and oriented x3. He understands the reasoning for him being here. She expressed to the patient that there is been concerns. With his wandering episode that he may not build care for himself at home and did provide him the option going to a intermediate to help with maintaining his safety. He declines at and states that he would rather go home and follow-up with [facility] as outpatient. He understands that he cannot follow-up with [facility] in the residential program.
[2022-12-25 09:03] VITALS: BP 108/76; PULSE 80; RESP 16; TEMP 36.8; O2SAT 95
[2022-12-25 09:11] VITALS: PULSE 80
[2022-12-25] MEDS: Pantoprazole Sodium 40 MG Tablet PO (09:11)
[2022-12-25] MEDS: Metoprolol Tartrate 100 MG Tablet PO (09:11)
[2022-12-25] MEDS: DULoxetine Hcl 60 MG Capsule PO (09:12)
[2022-12-25] MEDS: Folic Acid 1 MG Tablet PO (09:12)
[2022-12-25] MEDS: amLODIPine 10 MG Tablet 5 MG PO (09:12)
[2022-12-25] MEDS: Thiamine Hydrochloride 100 MG Tablet PO (09:12)
[2022-12-25] MEDS: ARIPiprazole 5 MG Tablet PO (11:07)
--- NOTE | 2022-12-25 12:47 | CASEMGMT ---
Social Work SW received message from Porsha at [facility] who states Peer to Peer is required by noon today for SNF preauthorization. SW spoke with physician regarding Peer to Peer and pt does not qualify for skilled level of care. Peer to Peer will not be completed. As of yesterday pt declining to go to SNF. Jose updated to cancel discharge. SW spoke with physician regarding guardianship. Physician met with pt and states pt is alert and oriented and this time and pt can discharge home. SW received phone call from pt brother Roby Mccabe. Roby states pt has been going through these cycles for many years and he thinks pt does ok once he is home and that pt knows when he is not ok and navigates his way back to the hospital. WALT updated that pt will be discharged home today. Call to Edilma at [facility] and left message that pt is discharging today and request that [facility] follow up to check on home safety and need for guardianship. PRISCILLA Yin
--- NOTE | 2022-12-25 13:00 | CASEMGMT ---
AGUILAR MAGALLANES made aware pt to ia today. AGUILAR MAGALLANES in to pt room, pt sitting on edge of bed, just finished lunch. Pt states he wants to go home and is agreeable to [facility] van as he does not have transportation. Pt states he feels safe to go home. His plan is to get the bus to go to [facility]. Asked pt if he has groceries at home, pt states well, yeah I have lived there for 20 years. He then states he has enough to get him through tomorrow until he can go to [facility] via the bus. Pt states he does not plan on using alcohol once home. He denies any homegoing needs. TC to [facility] transportation, pt can be taken home at 1pm. AGUILAR MAGALLANES made pt aware as well as nurse.
== END 2022-12-25 12:44 | disposition home or self-care (01) | DRG 897 ==
LOC: ED 17:33 → PCU 12-16 07:08 → MS3 12-16 18:37
PROVIDERS: Admitting Provider Internal Medicine; Emergency Provider Student in an Organized Health Care Education/Training Program; PCP Family Medicine
DX: F10.231 Alcohol dependence with withdrawal delirium (principal); I48.20 Chronic atrial fibrillation, unspecified; F20.9 Schizophrenia, unspecified; E78.5 Hyperlipidemia, unspecified; F41.8 Other specified anxiety disorders; I10 Essential (primary) hypertension; K29.20 Alcoholic gastritis without bleeding; Z87.891 Personal history of nicotine dependence; R53.81 Other malaise; Z79.899 Other long term (current) drug therapy
CPT/HCPCS: 36415; 80053; 80307; 82077; 83690; 85025; 93005; 97110; 97116; 97162; 97166; 97530; 97535; 97802; 99285; J7030; J2405

== ENCOUNTER 2023-01-05 02:23 | Emergency (ER) | payer MEDICARE, MEDICAID, SELFPAY ==
[2023-01-05 02:25] VITALS: BP 147/91; PULSE 99; RESP 15; TEMP 36.2; O2SAT 97; BMI 36.1
--- NOTE | 2023-01-05 02:46 | EKG12_ITS ---
Test Reason : DYSRYTHMIA Blood Pressure : / mmHG Vent. Rate : 100 BPM Atrial Rate : 000 BPM P-R Int : 000 ms QRS Dur : 090 ms QT Int : 316 ms P-R-T Axes : 000 022 054 degrees QTc Int : 407 ms Atrial fibrillation Abnormal ECG Confirmed by JENNIFER MEJIA, DAVID ([id number]), tape editor MELVI ALBA ([id number]) on 01/05/2023 2:45:49 PM Referred By: HORACE Confirmed By:DAVID RODRIGUEZ MD
[2023-01-05] MEDS: LORazepam 1 MG Tablet PO (02:57)
--- NOTE | 2023-01-05 03:05 | EX.ED.DYSGE1 ---
HPI History of Present Illness Chief Complaint: Anxiety Informant: patient Narrative Narrative: Patient presents with feeling panicky off and on for several days. He states he has a history of anxiety. He has meds for this at home but it sounds like he is not taking them. He does not know what they are. He states he is still drinking. He is drinking 12-16 beers a day. He is not having nausea and vomiting. He has not cut back on the alcohol. I asked him if he wanted detox and he was not sure if he wanted it now. He is not having palpitations or chest pain. He is not short of breath. No diarrhea. No vomiting. No cough or recent fevers chills or congestion. He just states that he feels anxious and panicky. [facility] Medical History Acute alcoholic gastritis without hemorrhage Alcohol dependence Alcohol dependence Alcohol withdrawal Alcoholic cardiomyopathy Alcoholism Anxiety Atrial fibrillation, chronic Atrial flutter, paroxysmal Depression with anxiety Desire for detoxification History of acute alcoholic hepatitis History of alcoholism HTN (hypertension) Left atrial enlargement Overweight Panic disorder Home Medications metoprolol tartrate 100 mg tablet 100 mg PO BID bp 10/03/19 [History Last Taken 11/06/22] atorvastatin 40 mg tablet 40 tab PO DAILY cholesterol 05/08/22 [History Last Taken 11/06/22] duloxetine 60 mg capsule,delayed release 60 cap PO DAILY mood 05/08/22 [History Last Taken Unknown] aripiprazole 5 mg tablet 5 mg PO DAILY mood 05/26/22 [History Last Taken 11/05/22] folic acid 1 mg tablet 1 mg PO BREAKFAST #30 tabs 11/13/22 [Rx Last Taken Unknown] thiamine HCl (vitamin B1) 100 mg tablet (Vitamin B-1) 100 mg PO DAILYCM #30 tabs 11/13/22 [Rx Last Taken Unknown] amlodipine 5 mg tablet 5 mg PO DAILY BP 12/15/22 [History Last Taken Unknown] lorazepam 1 mg tablet (Ativan) 1 mg PO BID PRN anxiety 3 days #6 tabs 01/05/23 [Rx Last Taken Unknown] Allergy/AdvReac Type Severity Reaction Status Date / Time No Known Allergies Allergy Verified 01/05/23 02:29 Family History Mother CVA (cerebral vascular accident) Father Cancer lung cancer Surgical History Hx of cholecystectomy Social History household members: none housing: apartment Smoking Status: Former smoker alcohol intake: current alcohol intake frequency: 3 or more drinks per day details: 24 12 ounce beers daily substance use type: does not use ROS ROS ED Constitutional Constitutional ED: Denies chills, fever(s), subjective or sweats Eyes Eyes: Denies change in vision or diplopia ENT ENT ED: Denies rhinorrhea or sore throat Cardiovascular Cardiovascular: Denies chest pain, palpitations or racing heartbeat Respiratory/Chest Respiratory/Chest: Denies cough or dyspnea Gastrointestinal Gastrointestinal: Denies abdominal pain, diarrhea, melena, nausea or vomiting Genitourinary Genitourinary ED: Denies hematuria Musculoskeletal Musculoskeletal: Denies myalgias Integumentary Denies rash Neurologic Neurologic: Denies headache(s), paresthesias or weakness Psychiatric Psychiatric: Reports anxiety and depression; Denies suicidal ideation or suicidal thoughts Endocrine Endocrinology: Denies polydipsia or polyuria Hematologic/Lymphatic Hematologic/Lymphatic: Reports other Details: Patient has a history of atrial fibrillation. However, he is not on anticoagulation I believe because of his alcoholism and risk of frequent falls and injury. ; Denies easy bleeding or easy bruising Allergic/Immunologic Allergic/Immunologic ED: Denies urticaria EXAM Physical Exam Narrative Exam Narrative: Patient is awake alert sitting in bed. He does seem a bit anxious and fidgety. He is cooperative. He makes good eye contact. He carries on normal conversation. He does not look toxic ill or dyspneic. HEENT shows moist mucous membranes Eyes have some mild injection but no discharge. Neck shows no JVD. Lungs are actually clear bilaterally. He can take good deep breaths. Heart is irregular with a rate of about 90-100. I do not hear a murmur. He does have good peripheral pulses. Abdomen is obese but overall benign. Neurologically he is awake he is alert he is oriented x3. See no focal weakness. Psychiatry: Patient does seem a bit internally stimulated. He seems anxious. He is cooperative. There is no flight of ideas. There is no sign of hallucinations at all and he denies these. He is denying suicidal thoughts. He just states that he feels panicky. Const Vital Signs: 01/05/23 02:25 Temperature 97.1 F L Temperature Source Temporal Pulse Rate 99 Respiratory Rate 15 Blood Pressure 147/91 H Blood Pressure Mean 109 Pulse Ox 97 Oxygen Delivery Method Room Air MDM MDM MDM Narrative Medical decision making narrative: I did do an EKG. This verified he is in A-fib but his rate is controlled. He has a longstanding history of A-fib and I find that on prior EKGs and his notes. I will give him a dose of Ativan. We will reassess him to see how he is feeling. We will discuss if he is interested in detox. It looks like he just got out of detox about 10 days ago. Patient's recheck. He is [place]. He is more relaxed. He states he is not exactly sure what medicines he has at home. He takes them when he feels he needs them. He does have known anxiety. I have reviewed his meds list that we have in from his recent admission. It sounds like the patient is not interested in going into detox. And he just went through this about 10 days ago. I do not think there is a big benefit to detox either now so I will not push him into this. He did get benefit from Ativan. I will send him home with a few Ativan. I accessed the online prescribing report that shows no controlled substances within the last 2 years. Discharge Plan Triage Chief Complaint: Anxiety ED Provider: Atul Bridges Dx/Rx/DC Orders Clinical Impression: Anxiety, Atrial fibrillation, Alcohol abuse Instructions: ED Anxiety Reaction Prescriptions: New lorazepam [Ativan] 1 mg tablet 1 mg PO BID PRN (Reason: anxiety) 3 Days Qty: 6 0RF No Action metoprolol tartrate 100 mg tablet 100 mg PO BID duloxetine 60 mg capsule,delayed release(DR/EC) 60 cap PO DAILY atorvastatin 40 mg tablet 40 tab PO DAILY Label Comments: 1 tablet by mouth as directed aripiprazole 5 mg Tablet 5 mg PO DAILY thiamine HCl (vitamin B1) [Vitamin B-1] 100 mg Tablet 100 mg PO DAILYCM Qty: 30 2RF folic acid 1 mg Tablet 1 mg PO BREAKFAST Qty: 30 2RF amlodipine 5 mg tablet 5 mg PO DAILY Primary Care Provider: Graciela Ashley Referrals: Graciela Ashley DO [Primary Care Provider] - 3-5 Days Disposition Disposition: Home, Self Care
[2023-01-05 04:19] VITALS: BP 145/87; PULSE 88; RESP 18; O2SAT 94
== END 2023-01-05 05:00 | disposition home or self-care (01) ==
PROVIDERS: Emergency Provider Emergency Medicine; PCP Family Medicine; Visit Provider Emergency Medicine
DX: F41.9 Anxiety disorder, unspecified (principal); I48.91 Unspecified atrial fibrillation; Z87.891 Personal history of nicotine dependence; I10 Essential (primary) hypertension; F10.10 Alcohol abuse, uncomplicated; Z79.899 Other long term (current) drug therapy; F32.A Depression, unspecified
CPT/HCPCS: 93005; 99284

== ENCOUNTER 2023-01-13 13:15 | Emergency (ER) | payer MEDICARE, MEDICAID, SELFPAY ==
[2023-01-13 13:16] VITALS: BP 149/88; PULSE 118; RESP 16; TEMP 36.6; O2SAT 100
--- NOTE | 2023-01-13 14:50 | ED.RN ---
PATIENT BROUGHT BACK TO ROOM 10 AND ASKED TO CHANGE INTO GOWN. PATIENT STATES HE IS NOT GOING UPSTAIRS. PATIENT STATES HE DOES NOT WANT DETOX. PATIENT STATES HE JUST WANTS A PRESCRIPTION FOR ATIVAN.
--- NOTE | 2023-01-13 15:38 | EDS_ITS ---
HPI History of Present Illness Chief Complaint: Substance Abuse Narrative Narrative: 72-year-old male with history of alcoholism presenting for refill on Ativan which she was given last visit. He states he initially thought these were helping but when he ran out he realized he was having problems. He is still drinking and states he drink about 8 beers this morning. He states he has detoxed before and does not want to be admitted to the hospital because he is cannot stand the electric floors. I asked him to explain this and he states that he is not allowed to get up and move about when he is in the hospital. He states he has an alarm set to a many cannot stay in bed for that many days again. He does not think he is in active withdrawal currently. [facility] Medical History Acute alcoholic gastritis without hemorrhage Alcohol dependence Alcohol dependence Alcohol withdrawal Alcoholic cardiomyopathy Alcoholism Anxiety Atrial fibrillation, chronic Atrial flutter, paroxysmal Depression with anxiety Desire for detoxification History of acute alcoholic hepatitis History of alcoholism HTN (hypertension) Left atrial enlargement Overweight Panic disorder Home Medications metoprolol tartrate 100 mg tablet 100 mg PO BID bp 10/03/19 [History Last Taken 11/06/22] atorvastatin 40 mg tablet 40 tab PO DAILY cholesterol 05/08/22 [History Last Taken 11/06/22] duloxetine 60 mg capsule,delayed release 60 cap PO DAILY mood 05/08/22 [History Last Taken Unknown] aripiprazole 5 mg tablet 5 mg PO DAILY mood 05/26/22 [History Last Taken 11/05/22] folic acid 1 mg tablet 1 mg PO BREAKFAST #30 tabs 11/13/22 [Rx Last Taken Unknown] thiamine HCl (vitamin B1) 100 mg tablet (Vitamin B-1) 100 mg PO DAILYCM #30 tabs 11/13/22 [Rx Last Taken Unknown] amlodipine 5 mg tablet 5 mg PO DAILY BP 12/15/22 [History Last Taken Unknown] lorazepam 1 mg tablet (Ativan) 1 mg PO BID PRN anxiety 3 days #6 tabs 01/05/23 [Rx Last Taken Unknown] Allergy/AdvReac Type Severity Reaction Status Date / Time No Known Allergies Allergy Verified 01/13/23 13:18 Family History Mother CVA (cerebral vascular accident) Father Cancer lung cancer Surgical History Hx of cholecystectomy Social History household members: none housing: apartment Smoking Status: Former smoker alcohol intake: current alcohol intake frequency: 3 or more drinks per day details: 24 12 ounce beers daily substance use type: does not use ROS ROS ED Review of Systems ROS Unobtainable: Denies due to encephalopathy Constitutional Constitutional ED: Denies chills or fever(s) Eyes Eyes: Denies change in vision ENT ENT ED: Denies rhinorrhea or sore throat Cardiovascular Cardiovascular: Denies chest pain or palpitations Respiratory/Chest Respiratory/Chest: Denies cough or dyspnea Gastrointestinal Gastrointestinal: Denies abdominal pain or constipation Genitourinary Genitourinary ED: Denies dysuria Musculoskeletal Musculoskeletal: Denies arthralgias or back pain Integumentary Denies abscess or Abrasions Neurologic Neurologic: Denies headache(s) or paresthesias Psychiatric Psychiatric: Denies anxiety or depression EXAM Physical Exam Const Vital Signs: 01/13/23 13:16 Temperature 98 F Temperature Source Temporal Pulse Rate 118 H Respiratory Rate 16 Blood Pressure 149/88 H Blood Pressure Mean 108 Pulse Ox 100 Oxygen Delivery Method Room Air MDM MDM MDM Narrative Medical decision making narrative: Patient presenting for refill of Ativan. I did offer him detox but he states he cannot handle it again. He does not want to be admitted to the hospital. He is alert and awake and I believe he has capacity to make this decision. He wants to be discharged home. Patient was given return precautions. Impression: 1. Alcohol abuse Discharge Plan Triage Chief Complaint: Substance Abuse ED Provider: Jamar Aragon Dx/Rx/DC Orders Instructions: ED Alcohol Abuse Prescriptions: No Action metoprolol tartrate 100 mg tablet 100 mg PO BID duloxetine 60 mg capsule,delayed release(DR/EC) 60 cap PO DAILY atorvastatin 40 mg tablet 40 tab PO DAILY Label Comments: 1 tablet by mouth as directed aripiprazole 5 mg Tablet 5 mg PO DAILY thiamine HCl (vitamin B1) [Vitamin B-1] 100 mg Tablet 100 mg PO DAILYCM Qty: 30 2RF folic acid 1 mg Tablet 1 mg PO BREAKFAST Qty: 30 2RF amlodipine 5 mg tablet 5 mg PO DAILY lorazepam [Ativan] 1 mg tablet 1 mg PO BID PRN (Reason: anxiety) 3 Days Qty: 6 0RF Primary Care Provider: Graciela Ashley Referrals: Graciela Ashley, [Primary Care Provider] - Disposition Disposition: Home, Self Care Discharge Date/Time: 01/13/23 15:12
== END 2023-01-13 15:12 | disposition home or self-care (01) ==
PROVIDERS: Emergency Provider Student in an Organized Health Care Education/Training Program; PCP Family Medicine; Visit Provider Student in an Organized Health Care Education/Training Program
DX: F10.20 Alcohol dependence, uncomplicated (principal); I42.6 Alcoholic cardiomyopathy; I10 Essential (primary) hypertension; Z87.891 Personal history of nicotine dependence; Z79.899 Other long term (current) drug therapy; F41.8 Other specified anxiety disorders; Z90.49 Acquired absence of other specified parts of digestive tract
CPT/HCPCS: 99284

== ENCOUNTER 2023-01-14 03:04 | Inpatient (IN) | payer MEDICARE, MEDICAID, SELFPAY ==
[2023-01-14] VITALS (9 sets, daily range): BP systolic 123–146; BP diastolic 75–107; PULSE 93–110; RESP 16–20; TEMP 36.4–36.7; O2SAT 98–100; BMI 35.2; BMI 34.7
--- NOTE | 2023-01-14 03:58 | EKG12_ITS ---
Test Reason : ETOH W/D Blood Pressure : / mmHG Vent. Rate : 112 BPM Atrial Rate : 000 BPM P-R Int : 000 ms QRS Dur : 092 ms QT Int : 352 ms P-R-T Axes : 000 019 056 degrees QTc Int : 480 ms Atrial fibrillation with rapid ventricular response Abnormal ECG Confirmed by JENNIFER MEJIA, DAVID ([id number]), non linear editor MELVI ALBA ([id number]) on 01/15/2023 9:32:24 AM Referred By: Confirmed By:DAVID RODRIGUEZ MD
[2023-01-14] MEDS: 0.9% Normal Saline 1,000 ML 999 ML IV (04:10)
[2023-01-14] MEDS: LORazepam 2 MG/ML Syringe 1 MG IV (04:10)
[2023-01-14 04:17] LABS: Absolute Lymphocyte Count 1.27 X10^3/uL (0.83-4.51); Absolute Neutrophil Count 4.5 X10^3/uL (2.0-7.7); Basophil# 0.04 X10^3/uL; Basophil% 0.6 % (0-1); Eosinophil# 0.16 X10^3/uL; Eosinophils% 2.4 % (0-5); Hematocrit 44.9 % (40-54); Hemoglobin 15.6 g/dL (13.0-16.5); Lymphocyte # 1.27 X10^3/ul (0.83-4.51); Lymphocyte % 19.2 % (19-41); Mean Corp Hgb Conc 34.7 g/dL (32-36); Mean Corpuscular Hgb 34.6 pg (27.0-32.0); Mean Corpuscular Volume 99.6 fL (80-94); Mean Platelet Vol. 10.3 fl (6.2-12.0); Monocyte# 0.67 X10^3/uL; Monocyte% 10.1 % (0-10); NRBC Flagged by Analyzer 0 % (0-5); Neutrophil # 4.45 X10^3/uL (2.7-7.7); Neutrophil % 67.1 % (47-70); Platelet Count 233 K/mm3 (150-450); RBC Distribution Width CV 12.9 % (11.6-14.6); RBC Distribution Width SD 47.1 fl (35.1-43.9); Red Blood Count 4.51 M/mm3 (4.6-6.2); White Blood Count 6.6 K/mm3 (4.4-11.0)
[2023-01-14] MEDS: chlordiazePOXIDE 25 MG Capsule 50 MG PO (04:18)
--- NOTE | 2023-01-14 04:23 | EDS_ITS ---
HPI History of Present Illness Chief Complaint: Anxiety Narrative Narrative: Patient is a 72-year-old male with past medical history of alcohol abuse and anxiety and chronic atrial fibrillation. He was seen in the ER yesterday secondary to anxiety stating that the Ativan he takes has not been helping. He denied any homicidal or suicidal ideation and was offered placement for alcohol detox but refused. Patient was prescribed 6 Ativan pills to help with his symptoms. Patient states he continues to drink and has had 8-10 beers and also states he took all 6 Ativan that were prescribed to him and despite this has had persistent anxiety. He denies any homicidal or suicidal ideation and he denies any auditory or visual hallucination however he feels like his symptoms are worsening and secondary to this returns for repeat evaluation [facility] Medical History Acute alcoholic gastritis without hemorrhage Alcohol dependence Alcohol dependence Alcohol withdrawal Alcoholic cardiomyopathy Alcoholism Anxiety Atrial fibrillation, chronic Atrial flutter, paroxysmal Depression with anxiety Desire for detoxification History of acute alcoholic hepatitis History of alcoholism HTN (hypertension) Left atrial enlargement Overweight Panic disorder Home Medications metoprolol tartrate 100 mg tablet 100 mg PO BID bp 10/03/19 [History Last Taken 11/06/22] atorvastatin 40 mg tablet 40 tab PO DAILY cholesterol 05/08/22 [History Last Taken 11/06/22] duloxetine 60 mg capsule,delayed release 60 cap PO DAILY mood 05/08/22 [History Last Taken Unknown] aripiprazole 5 mg tablet 5 mg PO DAILY mood 05/26/22 [History Last Taken 11/05/22] folic acid 1 mg tablet 1 mg PO BREAKFAST #30 tabs 11/13/22 [Rx Last Taken Unknown] thiamine HCl (vitamin B1) 100 mg tablet (Vitamin B-1) 100 mg PO DAILYCM #30 tabs 11/13/22 [Rx Last Taken Unknown] amlodipine 5 mg tablet 5 mg PO DAILY BP 12/15/22 [History Last Taken Unknown] lorazepam 1 mg tablet (Ativan) 1 mg PO BID PRN anxiety 3 days #6 tabs 01/05/23 [Rx Last Taken Unknown] Allergy/AdvReac Type Severity Reaction Status Date / Time No Known Allergies Allergy Verified 01/14/23 03:10 Family History Mother CVA (cerebral vascular accident) Father Cancer lung cancer Surgical History Hx of cholecystectomy Social History household members: none housing: apartment Smoking Status: Former smoker alcohol intake: current alcohol intake frequency: 3 or more drinks per day details: 24 12 ounce beers daily substance use type: does not use ROS ROS ED Constitutional Constitutional ED: Denies chills or fever(s) Eyes Eyes: Denies change in vision ENT ENT ED: Denies sore throat Cardiovascular Cardiovascular: Reports palpitations and racing heartbeat; Denies chest pain Respiratory/Chest Respiratory/Chest: Denies cough or dyspnea Gastrointestinal Gastrointestinal: Reports nausea; Denies abdominal pain, diarrhea or vomiting Genitourinary Genitourinary ED: Denies dysuria Musculoskeletal Musculoskeletal: Denies myalgias Integumentary Denies rash Neurologic Neurologic: Denies headache(s) Psychiatric Psychiatric: Reports anxiety; Denies suicidal ideation or suicidal thoughts Hematologic/Lymphatic Hematologic/Lymphatic: Denies easy bleeding or easy bruising EXAM Physical Exam Const Vital Signs: 01/14/23 03:05 Temperature 97.7 F L Temperature Source Oral Pulse Rate 110 H Respiratory Rate 20 H Blood Pressure 134/92 H Blood Pressure Mean 106 Pulse Ox 99 Oxygen Delivery Method Room Air Positive well nourished, well developed and obese General Appearance ED: well developed Nutritional Appearance: obese HEENT Reports dry mucous membranes Mouth ED: Yes dry mucous membranes Mouth: dry mucous membranes Eyes PERRL and EOMs intact bilaterally General Eye ED: Negative for scleral icterus Neck supple Chest Wall palpation of chest normal Resp normal respiratory effort and clear to auscultation bilaterally Cardio Rate: other Other Details: Irregular irregular rhythm consistent with history of atrial fibrillation with slightly tachycardic rate GI normal to inspection, nondistended, normoactive bowel sounds, non-tender, non- distended and no masses GI Narrative: No voluntary guarding or rigidity no pulsatile mass or fluid wave Auscultation: normoactive bowel sounds Palpation: soft Extremity normal to inspection Extremity Narrative: No asymmetric edema no pitting edema negative Homans' sign bilaterally Neuro oriented x3 and CN's II-XII intact bilaterally Sensorium / Orientation: alert Psych Psych Narrative: Patient has a nervous/anxious affect without homicidal or suicidal ideations Skin no rashes or lesions noted General Skin Exam: Negative for jaundice MDM MDM MDM Narrative Medical decision making narrative: Patient presented to the ER slightly tachycardic but otherwise with stable vitals. His exam and EKG shows he is in atrial fibrillation which is chronic for him. The patient reports he still been drinking 8-10 beers a day which is his normal but he has been having persistent breakthrough anxiety despite trying Ativan which is helped in the past. He has no homicidal or suicidal ideation but with his persistent anxiety I do feel he would benefit from alcohol detox. The patient refused this at his last ER visit yesterday January 13 but is agreeable to placement today. Secondary to his basic blood work was obtained patient was hydrated and started on Ativan and Librium as he has a CIWA score of 8. The case was discussed with medicine on-call and they do agree to accept the patient at this time for continued treatment of his anxiety and alcohol withdrawal History & Record Review Discussion w/independent historian: Patient Lab Data Attestation: I reviewed the patient's lab results. Labs: Laboratory Results - last 24 hr 01/14/23 01/14/23 01/14/23 04:11 04:11 04:11 WBC 6.6 RBC 4.51 L Hgb 15.6 Hct 44.9 MCV 99.6 H MCH 34.6 H MCHC 34.7 RDW Std Deviation 47.1 H RDW Coeff of Pati 12.9 Plt Count 233 MPV 10.3 Immature Gran % (Auto) 0.600 Neut % (Auto) 67.1 Lymph % (Auto) 19.2 Glenn % (Auto) 10.1 H Eos % (Auto) 2.4 Baso % (Auto) 0.6 Absolute Neuts (auto) 4.5 Absolute Lymphs (auto) 1.27 Nucleated RBC % 0 Sodium 141 Potassium 4.2 Chloride 108 H Carbon Dioxide 24.0 Anion Gap 9 BUN 16 Creatinine 0.93 Estim Creat Clear Calc 68.44 Est GFR (MDRD) Af Amer 102 Est GFR (MDRD) Non-Af 85 BUN/Creatinine Ratio 17.2 Glucose 97 Calcium 9.2 Magnesium 1.9 Total Bilirubin 0.40 Direct Bilirubin 0.18 AST 28 ALT 34 Alkaline Phosphatase 98 Total Protein 7.4 Albumin 3.6 Globulin 3.8 Urine Opiates Screen Urine Methadone Screen Ur Barbiturates Screen Ur Phencyclidine Scrn Ur Amphetamines Screen MDMA (Ecstasy) Screen U Benzodiazepines Scrn Urine Cocaine Screen U Cannabinoids Screen Ur Drug Screen Comment Ethyl Alcohol < 3.0 01/14/23 05:19 WBC RBC Hgb Hct MCV MCH MCHC RDW Std Deviation RDW Coeff of Pati Plt Count MPV Immature Gran % (Auto) Neut % (Auto) Lymph % (Auto) Glenn % (Auto) Eos % (Auto) Baso % (Auto) Absolute Neuts (auto) Absolute Lymphs (auto) Nucleated RBC % Sodium Potassium Chloride Carbon Dioxide Anion Gap BUN Creatinine Estim Creat Clear Calc Est GFR (MDRD) Af Amer Est GFR (MDRD) Non-Af BUN/Creatinine Ratio Glucose Calcium Magnesium Total Bilirubin Direct Bilirubin AST ALT Alkaline Phosphatase Total Protein Albumin Globulin Urine Opiates Screen NEGATIVE Urine Methadone Screen NEGATIVE Ur Barbiturates Screen POSITIVE H Ur Phencyclidine Scrn NEGATIVE Ur Amphetamines Screen NEGATIVE MDMA (Ecstasy) Screen NEGATIVE U Benzodiazepines Scrn NEGATIVE Urine Cocaine Screen NEGATIVE U Cannabinoids Screen NEGATIVE Ur Drug Screen Comment Ethyl Alcohol Discharge Plan Triage Chief Complaint: Anxiety ED Provider: Lior Frye Dx/Rx/DC Orders Clinical Impression: Alcohol abuse, Anxiety, Desire for detoxification, Chronic atrial fibrillation Primary Care Provider: Graciela Ashley
[2023-01-14 04:35] LABS: AST(SGOT) 28 U/L (15-37); Alanine Aminotransfer ALT/SGPT 34 U/L (16-61); Albumin, Serum 3.6 g/dL (3.2-5.0); Alkaline Phosphatase 98 U/L (45-117); Anion Gap 9 (5-15); BUN 16 mg/dL (7-18); BUN/Creat Ratio 17.2 RATIO (10-20); Bilirubin, Direct 0.18 mg/dL (0.00-0.30); Calcium,Total 9.2 mg/dL (8.5-10.1); Chloride 108 mmol/L (98-107); Creatinine, Serum 0.93 mg/dL (0.70-1.30); EST Glomerular Filtration Rate 85 mL/min (>60); Est Glom Filt Rate - Afr Amer 102 mL/min (>60); Estimated Creatinine Clearance 68.44 ml/min; Globulin 3.8 g/dL (2.2-4.2); Glucose 97 mg/dL (74-106); Magnesium 1.9 mg/dL (1.6-2.6); Potassium 4.2 mmol/L (3.5-5.1); Protein, Total 7.4 g/dL (6.4-8.2); Sodium Level 141 mmol/L (136-145)
[2023-01-14 04:44] LABS: Alcohol, Blood (Medical)-Serum < 3.0 mg/dL
[2023-01-14 05:41] LABS: Amphetamine Urine VISTA NEGATIVE (<1000 ng/mL); Barbiturate Urine VISTA POSITIVE (< 200 ng/mL); Benzodiazepine Urine VISTA NEGATIVE (< 200 ng/mL); Cocaine Urine VISTA NEGATIVE (< 300 ng/mL); Ecstacy Urine VISTA NEGATIVE (< 500 ng/mL); Methadone Urine VISTA NEGATIVE (< 300 ng/mL); PCP Urine VISTA NEGATIVE (< 25 ng/mL); THC Urine VISTA NEGATIVE (< 50 ng/mL); Vista UDS pH Range 4
--- NOTE | 2023-01-14 05:41 | HP.PCM.HOS_ITS ---
HPI - General General Date of Admission: 01/14/23 Date of Service: 01/14/23 Chief Complaint: Panic attack HPI Narrative LANIE DELONG, is a 72 M with a significant history of chronic atrial fibrillation; alcoholism and anxiety disorder who presents to the emergency department and reports a panic attack. Associated with his symptoms is nausea. Further, patient reports tingling in bilateral hands and feet. Patient reported that he has been in the hospital in and out several times for the past 1 month. He thinks that alcoholism is contributing to his symptoms. Reportedly he drinks about 8 tall cans of beer per day. Last time he drank was few hours before presentation. A day before presentation patient was offered admission for alcohol withdrawal and he refused. However on this current ED visit patient is willing to stay at the hospital for alcohol detoxification. [facility] Medical History Acute alcoholic gastritis without hemorrhage Alcohol dependence Alcohol dependence Alcohol withdrawal Alcoholic cardiomyopathy Alcoholism Anxiety Atrial fibrillation, chronic Atrial flutter, paroxysmal Depression with anxiety Desire for detoxification History of acute alcoholic hepatitis History of alcoholism HTN (hypertension) Left atrial enlargement Overweight Panic disorder Home Medications metoprolol tartrate 100 mg tablet 100 mg PO BID bp 10/03/19 [History Last Taken 11/06/22] atorvastatin 40 mg tablet 40 tab PO DAILY cholesterol 05/08/22 [History Last Taken 11/06/22] duloxetine 60 mg capsule,delayed release 60 cap PO DAILY mood 05/08/22 [History Last Taken Unknown] aripiprazole 5 mg tablet 5 mg PO DAILY mood 05/26/22 [History Last Taken 11/05/22] folic acid 1 mg tablet 1 mg PO BREAKFAST #30 tabs 11/13/22 [Rx Last Taken Unknown] thiamine HCl (vitamin B1) 100 mg tablet (Vitamin B-1) 100 mg PO DAILYCM #30 tabs 11/13/22 [Rx Last Taken Unknown] amlodipine 5 mg tablet 5 mg PO DAILY BP 12/15/22 [History Last Taken Unknown] lorazepam 1 mg tablet (Ativan) 1 mg PO BID PRN anxiety 3 days #6 tabs 01/05/23 [Rx Last Taken Unknown] Allergy/AdvReac Type Severity Reaction Status Date / Time No Known Allergies Allergy Verified 01/14/23 03:10 Family History Mother CVA (cerebral vascular accident) Father Cancer lung cancer Surgical History Hx of cholecystectomy Social History household members: none housing: apartment Smoking Status: Former smoker alcohol intake: current alcohol intake frequency: 3 or more drinks per day details: 24 12 ounce beers daily substance use type: does not use ROS ROS Narrative Pertinent positives and pertinent negatives as noted in HPI. All other systems were reviewed and are negative Vital Signs Vital Signs Vital Signs: 01/14/23 03:05 Temperature 97.7 F L Temperature Source Oral Pulse Rate 110 H Respiratory Rate 20 H Blood Pressure 134/92 H Blood Pressure Mean 106 Pulse Ox 99 Oxygen Delivery Method Room Air Weight Weight: 105.1 kg Body Mass Index (BMI) 35.2 Physical Exam Narrative Physical exam: General: Well-nourished, well-developed. Head: Normocephalic, atraumatic, no tenderness Eyes: Vision is grossly intact. EOMI ENT, no trauma, moist mucous membranes, no rhinorrhea Neck: Nontender, No thyromegaly. CVS: Regular rate and rhythm. S1-S2 present. No murmur, gallop or rub. Respiratory : clear to auscultation bilaterally, chest wall nontender, no wheezing Abdomen: Soft, nontender, nondistended, normal bowel sounds, no masses : Deferred Back: Nontender, no CVA tenderness, no midline spinal tenderness, deformities, step-offs Extremities: Nontender full range of motion, no trauma Skin: Normal color, no trauma, abrasions Neuro: Alert, oriented, cranial nerves II through XII grossly intact. Asterixis. Results Lab / Micro Data Result Diagrams: 01/14/23 04:11 01/14/23 04:11 Labs: Laboratory Results - last 24 hr 01/14/23 04:11: WBC 6.6, RBC 4.51 L, Hgb 15.6, Hct 44.9, MCV 99.6 H, MCH 34.6 H, MCHC 34.7, RDW Std Deviation 47.1 H, RDW Coeff of Pati 12.9, Plt Count 233, MPV 10.3, Immature Gran % (Auto) 0.600, Neut % (Auto) 67.1, Lymph % (Auto) 19.2, Walker % (Auto) 10.1 H, Eos % (Auto) 2.4, Baso % (Auto) 0.6, Absolute Neuts (auto) 4.5, Absolute Lymphs (auto) 1.27, Nucleated RBC % 0 01/14/23 04:11: Sodium 141, Potassium 4.2, Chloride 108 H, Carbon Dioxide 24.0, Anion Gap 9, BUN 16, Creatinine 0.93, Estim Creat Clear Calc 68.44, Est GFR (MDRD) Af Amer 102, Est GFR (MDRD) Non-Af 85, BUN/Creatinine Ratio 17.2, Glucose 97, Calcium 9.2, Magnesium 1.9, Total Bilirubin 0.40, Direct Bilirubin 0.18, AST 28, ALT 34, Alkaline Phosphatase 98, Total Protein 7.4, Albumin 3.6, Globulin 3.8 01/14/23 04:11: Ethyl Alcohol < 3.0 01/14/23 05:19: Ur Drug Screen Comment Assessment & Plan Assessment/Plan (1) Desire for detoxification: (2) Anxiety: (3) Chronic atrial fibrillation: PLAN: Plan Alcohol dependence and desire for detoxification Patient be started on phenobarbital and other adjunctive medications: Gabapentin as needed; dicyclomine as needed; Vistaril as needed; Imodium as needed; trazodone as needed; Zofran as needed; scheduled thiamine; and schedule folic acid. Monitor CIWA score Anxiety disorder Review of records show that in the past at least patient had been on aripiprazole and duloxetine. As needed hydroxyzine ordered. We will start patient on buspirone. Chronic A-fib Mildly uncontrolled. Patient is not on home anticoagulation. Unclear whether while patient is not on anticoagulation. However review of records shows a history of acute alcohol gastritis. Reports being on aspirin. Aspirin ordered. DVT prophylaxis Lovenox ordered Charges/Coding Visit Charges Inpatient E&M: 10435 Init Hosp L2
[2023-01-14] MEDS: Folic Acid 1 MG Tablet PO (07:37)
[2023-01-14] MEDS: hydrOXYzine PAM 25 MG Capsule 50 MG PO ×4 (07:37→20:53)
[2023-01-14] MEDS: Phenobarbital 32.4 MG Tablet 64.8 MG PO ×4 (07:37→20:53)
[2023-01-14] MEDS: Aspirin 81 MG TAB.CHEW PO (07:38)
[2023-01-14] MEDS: amLODIPine 5 MG Tablet PO (07:38)
[2023-01-14] MEDS: Metoprolol Tartrate 100 MG Tablet PO ×2 (07:38→20:54)
--- NOTE | 2023-01-14 08:09 | PCM.PN.HOSP ---
Reason for Visit Reason for Visit: Anxiety/alcohol detox Subjective Subjective Mr. Mccabe is a 72-year-old white male who presents to the emergency department early today complaining of anxiety and a panic attack. Associated symptoms included tingling in both of his hands and his feet at the same time. He has had several admissions this year as well as several ER visits. All of his admissions have been for alcohol detox. Upon presentation he felt that his alcoholism is contributing to his symptoms. He is currently drinking 8 tall boys of beer daily and the last time he drank was just a few hours before presentation emergency department. He presented to the emergency department yesterday for his anxiety and was offered alcohol detox but he refused at that time however at this time he was willing to stay. Objective Data Objective Data Vital Signs: Vital Signs Temp Pulse Resp BP Pulse Ox O2 Del Method 97.6 F L 106 H 17 132/107 H 100 Room Air 01/14/23 06:40 01/14/23 07:38 01/14/23 06:40 01/14/23 06:40 01/14/23 06:40 01/14/23 06:40 Oxygen Delivery Method Room Air Weight: 103.5 kg Body Mass Index (BMI) 34.7 Intake & Output: Intake and Output for Last 24 Hours 01/12/23 01/13/23 01/14/23 23:59 23:59 23:59 Intake Total 1101.2 / 1101.2 Balance 1101.2 / 1101.2 Lab / Micro Data Result Diagrams: 01/14/23 04:11 01/14/23 04:11 Labs: Laboratory Results - last 24 hr 01/14/23 04:11: WBC 6.6, RBC 4.51 L, Hgb 15.6, Hct 44.9, MCV 99.6 H, MCH 34.6 H, MCHC 34.7, RDW Std Deviation 47.1 H, RDW Coeff of Pati 12.9, Plt Count 233, MPV 10.3, Immature Gran % (Auto) 0.600, Neut % (Auto) 67.1, Lymph % (Auto) 19.2, Mclennan % (Auto) 10.1 H, Eos % (Auto) 2.4, Baso % (Auto) 0.6, Absolute Neuts (auto) 4.5, Absolute Lymphs (auto) 1.27, Nucleated RBC % 0 01/14/23 04:11: Sodium 141, Potassium 4.2, Chloride 108 H, Carbon Dioxide 24.0, Anion Gap 9, BUN 16, Creatinine 0.93, Estim Creat Clear Calc 68.44, Est GFR (MDRD) Af Amer 102, Est GFR (MDRD) Non-Af 85, BUN/Creatinine Ratio 17.2, Glucose 97, Calcium 9.2, Magnesium 1.9, Total Bilirubin 0.40, Direct Bilirubin 0.18, AST 28, ALT 34, Alkaline Phosphatase 98, Total Protein 7.4, Albumin 3.6, Globulin 3.8 01/14/23 04:11: Ethyl Alcohol < 3.0 01/14/23 05:19: Urine Opiates Screen NEGATIVE, Urine Methadone Screen NEGATIVE, Ur Barbiturates Screen POSITIVE H, Ur Phencyclidine Scrn NEGATIVE, Ur Amphetamines Screen NEGATIVE, MDMA (Ecstasy) Screen NEGATIVE, U Benzodiazepines Scrn NEGATIVE, Urine Cocaine Screen NEGATIVE, U Cannabinoids Screen NEGATIVE, Ur Drug Screen Comment Assessment & Plan Assessment/Plan (1) Alcohol abuse: (2) Desire for detoxification: PLAN: Plan Alcohol abuse with acute alcohol withdrawal -Drinking 8 tall boys daily -Continue phenobarbital taper -Thiamine and folate are being given orally -Continue folate but increase thiamine to 200 mg 3 times daily for 3 days -Supportive medications for withdrawal symptom management -Consultation to 180--> at previous visits patient has refused any treatment and insists on discharge home -Patient really needs to enter treatment program as this is his fourth admission for alcohol withdrawal since November 02, 2022 Toxic/metabolic encephalopathy -History of this with previous admissions as he goes through withdrawal -Monitor closely History of alcoholic cardiomyopathy -Last echocardiogram from 04/15/2022 showed an EF of 55% with a moderately enlarged left atrium and a mildly enlarged right atrium -Continue home metoprolol Hyperlipidemia -Continue home atorvastatin Paroxysmal atrial fibrillation -Home metoprolol 100 mg twice daily -Patient was previously on apixaban but discontinued secondary to his chronic alcohol use and risk for falls and GI bleed -Patient currently in sinus rhythm -Likely induced by his alcohol use Depression -Continue home duloxetine -Continue home aripiprazole History of tobacco abuse -Remote -Encourage continued cessation DVT prophylaxis -Enoxaparin 40 mg daily as his withdrawals tend to be on the longer side Obesity -BMI 34.7 -Complicates treatment, prognosis, outcomes CODE STATUS -Full code
[2023-01-14] MEDS: Enoxaparin 40 MG/0.4 ML Syringe SC (08:21)
[2023-01-14] MEDS: busPIRone 5 MG Tablet PO ×2 (08:21→20:54)
[2023-01-14] MEDS: Thiamine Hydrochloride 100 MG Tablet 200 MG PO ×3 (09:58→16:30)
[2023-01-14] MEDS: ARIPiprazole 5 MG Tablet PO (09:58)
--- NOTE | 2023-01-14 10:21 | ADDICTION ---
TW met with pt to complete ASAM, AUDIT, DUDIT, MSE, and begin d/c planning. TW discussed residential placement options with pt, but pt declined due to having a turtle at home and feeling too old to engage in residential. TW suggested [facility]'s behavioral health PHP with client, which offers transportation, to work on managing his anxiety. Pt reported his anxiety relates to his drinking. Pt was very open to this idea and stated sign me up. TW will discuss with Akila to assess appropriateness since TW is less knowledgeable on pt's history.
[2023-01-14] MEDS: Ensure Plus High Protein 120 ML LIQUID PO ×3 (14:36→20:57)
[2023-01-14] MEDS: Atorvastatin Calcium 40 MG Tablet PO (20:54)
[2023-01-15] VITALS (9 sets, daily range): BP systolic 127–139; BP diastolic 86–95; PULSE 90–113; RESP 14–18; TEMP 36.4–36.7; O2SAT 95–100
[2023-01-15] MEDS: Phenobarbital 32.4 MG Tablet 64.8 MG PO ×6 (01:02→19:59)
[2023-01-15] MEDS: hydrOXYzine PAM 25 MG Capsule 50 MG PO (01:07)
[2023-01-15] MEDS: Folic Acid 1 MG Tablet PO (09:09)
[2023-01-15] MEDS: Aspirin 81 MG TAB.CHEW PO (09:09)
[2023-01-15] MEDS: Thiamine Hydrochloride 100 MG Tablet 200 MG PO ×3 (09:11→15:41)
[2023-01-15] MEDS: Ensure Plus High Protein 120 ML LIQUID PO (09:11)
[2023-01-15] MEDS: busPIRone 5 MG Tablet PO (09:11)
[2023-01-15] MEDS: ARIPiprazole 5 MG Tablet PO (09:11)
[2023-01-15] MEDS: amLODIPine 5 MG Tablet PO (09:11)
[2023-01-15] MEDS: Metoprolol Tartrate 100 MG Tablet PO (09:11)
[2023-01-15] MEDS: Enoxaparin 40 MG/0.4 ML Syringe SC (09:11)
--- NOTE | 2023-01-15 14:49 | PCM.PN.HOSP ---
Reason for Visit Reason for Visit: Anxiety/alcohol detox Subjective Subjective Patient states he is feeling well today. Alert and oriented x3 at this time. Asking if he can go home yet. His only about 36 hours into his detox so we discussed him staying at least another 24 more hours to see how he is feeling tomorrow and if he stable consider discharge at that time. He is amenable to outpatient counseling services and case management services at discharge so we will try and arrange for this directly at the time of discharge. Objective Data Objective Data Vital Signs: Vital Signs Temp Pulse Resp BP Pulse Ox O2 Del Method 97.8 F 90 16 139/90 H 95 Room Air 01/15/23 09:10 01/15/23 09:11 01/15/23 09:10 01/15/23 09:10 01/15/23 09:14 01/15/23 09:14 Oxygen Delivery Method Room Air Weight: 103.5 kg Body Mass Index (BMI) 34.7 Intake & Output: Intake and Output for Last 24 Hours 01/13/23 01/14/23 01/15/23 23:59 23:59 23:59 Intake Total 1821.2 / 2281.2 700 / 700 Balance 1821.2 / 2281.2 700 / 700 Lab / Micro Data Result Diagrams: 01/14/23 04:11 01/14/23 04:11 Physical Exam Const alert, oriented x3, no apparent distress and well nourished Constitutional Narrative: Older white male sitting on the edge of the bed, appears comfortable nontoxic, dressed in street close HEENT head/scalp atraumatic and moist oral mucous membranes Head and Scalp: normocephalic Resp normal respiratory effort, no retractions, no use of accessory muscles and clear to auscultation bilaterally Auscultation: Negative for rales, rhonchi or wheezes Cardio regular rate, regular rhythm, S1 normal heart sound, S2 normal heart sound, no murmurs, no rub, no gallops and no clicks GI normal to inspection, nondistended, normoactive bowel sounds, soft to palpation and non-tender Extremity no clubbing, cyanosis or edema Neuro oriented x3, moves all extremities and no focal motor deficits Neuro Narrative: Ambulating independently without any gait deviation Speech: speech normal Psych affect normal Psych Narrative: Pleasant, appropriately interactive Assessment & Plan Assessment/Plan (1) Alcohol abuse: (2) Desire for detoxification: PLAN: Plan Alcohol abuse with acute alcohol withdrawal -Drinking 8 tall boys daily -Continue phenobarbital taper -Thiamine and folate are being given orally -Supportive medications for withdrawal symptom management -Consultation to 180--> plan is to follow-up with outpatient services and case management the time of discharge we are trying to get him discharged directly to the case management's office for follow-up and early intervention Toxic/metabolic encephalopathy -History of this with previous admissions as he goes through withdrawal -Monitor closely -Thus far remains alert and oriented x3 and no signs of encephalopathy History of alcoholic cardiomyopathy -Last echocardiogram from 04/15/2022 showed an EF of 55% with a moderately enlarged left atrium and a mildly enlarged right atrium -Continue home metoprolol Hyperlipidemia -Continue home atorvastatin Paroxysmal atrial fibrillation -Home metoprolol 100 mg twice daily -Patient was previously on apixaban but discontinued secondary to his chronic alcohol use and risk for falls and GI bleed -Remains in normal sinus rhythm -Likely induced by his alcohol use Depression -Continue home duloxetine -Continue home aripiprazole History of tobacco abuse -Remote -Encourage continued cessation DVT prophylaxis -Enoxaparin 40 mg daily as his withdrawals tend to be on the longer side Obesity -BMI 34.7 -Complicates treatment, prognosis, outcomes CODE STATUS -Full code Disposition: -We will plan on discharge tomorrow as long as patient remains alert and oriented and fairly asymptomatic with regards to his withdrawal. I discussed the case at length with addiction services and their plan is to try to get him into a residential case manager directly from the hospital at the time of discharge so we can assure he has follow-up Charges/Coding Visit Charges Inpatient E&M: 82672 Subs Hosp L2
--- NOTE | 2023-01-15 20:45 | NURSING ---
Pt was at the door of his room singing opera songs into the hallway. When nursing staff and MARKET DIRECTOR's walked up to patient and start talking to patient he became angry and stated Why are you guys all in my garage trying to steal stuff? Nursing staff attempted to reorient patient back to reality by stating to him that he is in [facility]. Pt continued to become angry and slammed his door shut. This nurse knocked and asked patient if she could enter his room, patient agreed. This nurse stated to patient that she had his HS medications for him. Pt refused medications and became angry stating You guys are all thieves. This nurse offered a snack, a drink, and to turn the tv on for patient in attempts to distract patient but patient refused any snack or tv on. This nurse stated to patient she would be back to check on him later and to ring call [place] if he needed any assistance. Nurse then left room.
[2023-01-16 01:13] VITALS: BP 144/97; PULSE 89
[2023-01-16] MEDS: busPIRone 5 MG Tablet PO ×2 (01:13→09:19)
[2023-01-16] MEDS: traZODone 100 MG Tablet PO (01:13)
[2023-01-16] MEDS: Metoprolol Tartrate 100 MG Tablet PO ×2 (01:13→09:20)
[2023-01-16] MEDS: Phenobarbital 32.4 MG Tablet 64.8 MG PO ×4 (01:15→11:42)
[2023-01-16 01:32] VITALS: BP 144/97; PULSE 89; RESP 16; TEMP 37.2; O2SAT 96
[2023-01-16 05:19] VITALS: BP 123/88; PULSE 80; RESP 16; TEMP 36.4; O2SAT 100
[2023-01-16] MEDS: Aspirin 81 MG TAB.CHEW PO (09:18)
[2023-01-16] MEDS: Folic Acid 1 MG Tablet PO (09:18)
[2023-01-16] MEDS: amLODIPine 5 MG Tablet PO (09:19)
[2023-01-16] MEDS: Thiamine Hydrochloride 100 MG Tablet 200 MG PO ×2 (09:19→11:43)
[2023-01-16] MEDS: Ensure Plus High Protein 120 ML LIQUID PO (09:19)
[2023-01-16 09:20] VITALS: PULSE 92
[2023-01-16] MEDS: ARIPiprazole 5 MG Tablet PO (09:20)
[2023-01-16] MEDS: Enoxaparin 40 MG/0.4 ML Syringe SC (09:21)
[2023-01-16 09:22] VITALS: BP 100/62; PULSE 92; RESP 16; TEMP 36.8; O2SAT 96; O2SAT 98
--- NOTE | 2023-01-16 10:33 | DS.PCM_ITS ---
Providers Date of Admission: 01/14/23 Date of Discharge: 01/16/23 Primary Care Physician: Graciela Ashley DO Reason For Visit: DESIRE FOR ALCOHOL DETOXIFICATION, ANXIETY Diagnosis Discharge Diagnosis (1) Alcohol abuse: Status: Acute Code(s): F10.10 - Alcohol abuse, uncomplicated (2) Desire for detoxification: Status: Acute Medications at Discharge Home Medications metoprolol tartrate 100 mg tablet 100 mg PO BID bp 10/03/19 atorvastatin 40 mg tablet 40 tab PO DAILY cholesterol 05/08/22 duloxetine 60 mg capsule,delayed release 60 cap PO DAILY mood 05/08/22 aripiprazole 5 mg tablet 5 mg PO DAILY mood 05/26/22 folic acid 1 mg tablet 1 mg PO BREAKFAST #30 tabs 11/13/22 thiamine HCl (vitamin B1) 100 mg tablet (Vitamin B-1) 100 mg PO DAILYCM #30 tabs 11/13/22 amlodipine 5 mg tablet 5 mg PO DAILY BP 12/15/22 Hospital Course Operations None Procedures None Summary of Care Provided Minutes Spent on Discharge: 25 Hospital Course: Mr. Mccabe is a 72-year-old white male who presented to the emergency department on 01/14/2023 complaining of anxiety and a panic attack.? Associated symptoms included tingling in both of his hands and his feet at the same time.? He has had several admissions this year as well as several ER visits.? All of his admissions have been for alcohol detox or anxiety.? His last detox admission was from 12/15/2022 through 12/24/2022. Upon presentation he felt that his alcoholism is contributing to his symptoms.? He had been currently drinking 8 tall boys of beer daily and the last time he drank was just a few hours before presentation emergency department.? He presented to the emergency department on 01/13/2023 for his anxiety and was offered alcohol detox but he refused at that time. He was admitted to the medical floor and treated with phenobarbital, thiamine and folate, supportive medications for withdrawal and was seen by 180. He persists to refuse admission into a detox center for inpatient detox as he has a turtle at home named Scsierra that he has to take care of and he is very worried about his turtle. The counselor from [facility] did talk to him at length with regards to ongoing planning and transportation. We did come up with the idea of discharging him to case management and have appointment available directly at the time of discharge for him to go to the appointment and be seen prior to going home. We are hoping that this will help him as he has never followed up with resources previously. He has some confusion overnight on 01/15/2023. However on 01/16/2023 he was alert and oriented x3 and able to tell me [place]. He was anxious to go home and had no overt signs of withdrawal at this time. We are able to discharge him home in stable condition. He will be taken from the hospital to the counseling center at the time of discharge and then will receive transportation home. Ongoing resources and appointments will be established at that time. He was discharged to home with transport to the counseling center first in stable condition on 01/16/2023. I have asked him also to follow-up with his primary care physician within the next week. We are hoping that getting him to the counseling center first will eliminate the cycle of him coming in repetitively for detox and then going home and drinking again. Discharge diagnoses: Alcohol abuse with acute alcohol withdrawal History of alcoholic cardiomyopathy Hyperlipidemia PAF Depression History of tobacco abuse Physical Exam Narrative Patient states he is feeling well and anxious to go home. Is alert and oriented x3. Discussed plan with discharge to case management then home and he is agreeable. Const alert, oriented x3, no apparent distress and well nourished Constitutional Narrative: Older white male sitting up in a chair at the bedside, fully dressed and street close, appears comfortable, nontoxic, nursing at bedside General Appearance: cooperative, comfortable, well kempt and well developed Orientation / Consciousness: awake, oriented to person, oriented to place and oriented to time Exam Limitations: no limitations Nutritional Appearance: obese HEENT normocephalic, head/scalp atraumatic and moist oral mucous membranes; Negative for hearing grossly normal bilaterally HEENT Narrative: Mild hearing impairment, Mallampati 2, no thrush Resp normal respiratory effort, no retractions, no use of accessory muscles and clear to auscultation bilaterally Auscultation: Negative for rales, rhonchi or wheezes Cardio regular rate, regular rhythm, S1 normal heart sound, S2 normal heart sound, no murmurs, no rub, no gallops and no clicks GI normal to inspection, nondistended, normoactive bowel sounds, soft to palpation and non-tender Extremity no clubbing, cyanosis or edema Extremity Narrative: 2+ pedal pulses Neuro oriented x3, moves all extremities, no focal motor deficits and no sensory deficits noted Neuro Narrative: Continues to ambulate independently without any gait deviation Speech: speech normal Psych affect normal Psych Narrative: Pleasant, appropriately interactive Weight / BMI Weight Weight: 103.5 kg Body Mass Index (BMI) 34.7 ABG / Lab / Microbiology Data Result Diagrams: 01/14/23 04:11 01/14/23 04:11 D/C Instructions Discharge Diet: Low fat / Low cholesterol Discharge Activity: Return to Normal Activity Meaningful Use Info Meaningful Use Diagnoses (Choose all that apply): None applicable Discharge Plan Admission Admit Date/Time: 01/14/23 05:28 Primary Reason for Your Visit: Alcohol detox Attending Provider: Mervat Veras Primary Care Provider: Graciela Ashley Consulting Providers: Alex Gonzalez Instructions Additional Instructions / Restrictions: 1. Please follow-up with the counseling services as directed Discharge Orders/Prescriptions Prescriptions: Continued metoprolol tartrate 100 mg tablet 100 mg PO BID duloxetine 60 mg capsule,delayed release(DR/EC) 60 cap PO DAILY atorvastatin 40 mg tablet 40 tab PO DAILY Label Comments: 1 tablet by mouth as directed aripiprazole 5 mg Tablet 5 mg PO DAILY thiamine HCl (vitamin B1) [Vitamin B-1] 100 mg Tablet 100 mg PO DAILYCM Qty: 30 2RF folic acid 1 mg Tablet 1 mg PO BREAKFAST Qty: 30 2RF amlodipine 5 mg tablet 5 mg PO DAILY Referrals / Follow Up: Graciela Ashley DO [Primary Care Provider] - Within 1 Week Disposition Disposition (needs filled in before D/C Order can be placed): Home, Self Care Charges/Coding Visit Charges Inpatient E&M: 94558 Disch Hosp
--- NOTE | 2023-01-16 13:50 | CASEMGMT ---
Social Work PCU Collaboration with [facility] addiction therapist Akila Croft this date. Barriers present to get patient to an in person appointment at [facility]. Phone assessment discussed, but when Akila met with patient this date and attempted to call patient's phone, the phone was not working, creating another barrier to get patient an assessment for case management. Discussed potential referral to the counseling center for case management services as there is a program for those 55 and older. Barrier continues to be transportation, patient's awareness about these appointments, and support in the community get patient to appointments. Concern also that patient is not getting to primary care appointments, which is also likely impeding patient's overall health. Patient continues to have intermittent and transient confusion, which has shown to be the norm during the patient's detox. Discussed with Akila potential referral for home visiting physician service if patient would agree. Also discussed involving Adult Protective Services as another protective factor to attempt to get patient more protective services in the community. Concern present that due to patient's age, continuing substance use issues, continuing intermittent and transient periods of confusion with limited community support that increased contact with Adult Protective Services may be appropriate. Akila able to schedule a peer instructional support technician from [facility] to transport patient home, view the home and verify whether there are any animals actually in the home and help ensure patient's phone is in working order. The instructional support technician to assist patient in completing a phone assessment for case management services with Isela Jose Juan. This service writer advisor met briefly with the patient, prior to the peer instructional support technician coming to the hospital. This service writer advisor attempted to broach the home visiting service for primary care. Patient reported would be open to this but also appeared distracted during conversation. This service writer advisor gently broached whether patient was intent on going home or whether patient might, in the long-term agree to services such as assisted living. Patient's response inappropriate, informing this service writer advisor that he is too old for assisted living and does not want to be around teenagers. Patient maintained intent to leave the hospital, aware that was in the hospital, and would not go to any facility. This service writer advisor completed a chart review and noted the patient has been [facility] 8 times between 11/07/2022 and this admission dated 01/14/2023. All related to alcohol use issues and/or anxiety. Called Adult Protective Services. Attempted to reach tnt line supervisor Betty, , but voice mail states out of the office and indicated to call APS worker Silvano. Called Silvano [phone] and left message to call this service writer advisor back for referral. Plan: Patient discharged with the assistance of a [employer] peers instructional support technician. To have a phone interview with Isela Manzano for case management services. Awaiting return call from Adult Protective Services for completion of APS referral. -GLADIS Alcantar, TOURIST ESCORT
--- NOTE | 2023-01-16 14:05 | CASEMGMT ---
Social Work Note WALT was contacted by Chris with APS inquiring about patient being at the hospital. WALT explained the patient was currently admitted on the PCU floor and the update provided by WALT Abreu in handoff was the patient would be working with the addictions counselor Hal to coordinate a discharge from [facility] to [facility] to meet with a case coordinator. Chris explained she missed a call from WALT Little, WALT explained Noah Little is covering PCU today. Chris will follow with with WALT Little regarding patient. Sofi Mccabe GAS TURBINE MECHANIC, STACIE
--- NOTE | 2023-01-23 14:47 | CASEMGMT ---
Social Work Spoke with Silvano at [facility] Adult Protective Services. Referral given due to repeated hospitalizations, concern for ability to access phone, limited support, and general self care issues at home. Discussed complicating factor of substance use disorder for this patient and efforts made by [employer] to increase support for this patient. Discussed possible home visiting physician service as a future support for patient, if accessing appointments at the PCP office is a concern. Silvano asked to be notified if patient returns again to the hospital. -BRANT Alcantar, TIMBER HARVESTER OPERATOR
== END 2023-01-16 13:40 | disposition home or self-care (01) | DRG 897 ==
LOC: ED 05:47 → PCU 06:49
PROVIDERS: Admitting Provider Hospitalist; Emergency Provider Emergency Medicine; PCP Family Medicine; Visit Provider Internal Medicine
DX: F10.230 Alcohol dependence with withdrawal, uncomplicated (principal); I42.6 Alcoholic cardiomyopathy; I48.0 Paroxysmal atrial fibrillation; I10 Essential (primary) hypertension; F41.8 Other specified anxiety disorders; E78.5 Hyperlipidemia, unspecified; Z87.891 Personal history of nicotine dependence; Z90.49 Acquired absence of other specified parts of digestive tract; Z79.899 Other long term (current) drug therapy; E66.9 Obesity, unspecified; Z68.34 Body mass index [BMI] 34.0-34.9, adult; F32.A Depression, unspecified
CPT/HCPCS: 80048; 80076; 80307; 82077; 83735; 85025; 93005; 97802; 99284; 99285; J7030; A4216; J3490

== ENCOUNTER 2023-02-10 08:53 | Inpatient (IN) | payer MEDICARE, MEDICAID, SELFPAY ==
[2023-02-10] VITALS (7 sets, daily range): BP systolic 129–152; BP diastolic 86–110; PULSE 83–118; RESP 16–20; TEMP 36.4–36.8; O2SAT 93–100; BMI 34.4; BMI 34.3
--- NOTE | 2023-02-10 09:13 | EX.ED.SAOD ---
HPI History of Present Illness Chief Complaint: Substance Abuse Detail of Chief Complaint: Alcohol withdrawal and requesting detox from alcohol Informant: patient Narrative Narrative: Patient presents to the emergency department with complaint of withdrawing from alcohol and wants detox. Patient presents via EMS from home. Patient's last drink was around midnight. Patient normally drinks about 12 beers a day. Patient states that he has been through detox program at our facility before and he thinks it was 3 to 4 weeks ago. He denies recent illness. He denies vomiting. Does complain of nausea and feeling anxious. He had some diarrhea. Denies illicit drug use. [facility] Medical History Acute alcoholic gastritis without hemorrhage Alcohol dependence Alcohol dependence Alcohol withdrawal Alcoholic cardiomyopathy Alcoholism Anxiety Atrial fibrillation, chronic Atrial flutter, paroxysmal Depression with anxiety Desire for detoxification History of acute alcoholic hepatitis History of alcoholism HTN (hypertension) Left atrial enlargement Overweight Panic disorder Home Medications metoprolol tartrate 100 mg tablet 100 mg PO BID bp 10/03/19 [History Last Taken 11/06/22] atorvastatin 40 mg tablet 40 tab PO DAILY cholesterol 05/08/22 [History Last Taken 11/06/22] duloxetine 60 mg capsule,delayed release 60 cap PO DAILY mood 05/08/22 [History Last Taken Unknown] aripiprazole 5 mg tablet 5 mg PO DAILY mood 05/26/22 [History Last Taken 11/05/22] folic acid 1 mg tablet 1 mg PO BREAKFAST #30 tabs 11/13/22 [Rx Last Taken Unknown] thiamine HCl (vitamin B1) 100 mg tablet (Vitamin B-1) 100 mg PO DAILYCM #30 tabs 11/13/22 [Rx Last Taken Unknown] amlodipine 5 mg tablet 5 mg PO DAILY BP 12/15/22 [History Last Taken Unknown] Allergy/AdvReac Type Severity Reaction Status Date / Time No Known Allergies Allergy Verified 02/10/23 08:57 Family History Mother CVA (cerebral vascular accident) Father Cancer lung cancer Surgical History Hx of cholecystectomy Social History household members: none housing: apartment Smoking Status: Former smoker alcohol intake: current alcohol intake frequency: 3 or more drinks per day details: 24 12 ounce beers daily substance use type: does not use ROS ROS ED Review of Systems ROS Unobtainable: other Constitutional Constitutional ED: Reports lethargy; Denies chills, fever(s), sweats or weight loss Eyes Eyes: Denies blurry vision, change in vision or diplopia ENT ENT ED: Denies rhinorrhea or sore throat Cardiovascular Cardiovascular: Denies chest pain, orthopnea or racing heartbeat Respiratory/Chest Respiratory/Chest: Denies cough, dyspnea, dyspnea on exertion, orthopnea or sputum Gastrointestinal Gastrointestinal: Reports nausea; Denies abdominal pain, diarrhea or vomiting Genitourinary Genitourinary ED: Denies dysuria, hematuria or urinary frequency Musculoskeletal Musculoskeletal: Denies arthralgias, back pain, myalgias or neck pain Integumentary Denies abscess, Abrasions or rash Neurologic Neurologic: Denies headache(s) or weakness Psychiatric Psychiatric: Denies anxiety, depression or suicidal thoughts Endocrine Endocrinology: Denies polydipsia, polyphagia or polyuria Hematologic/Lymphatic Hematologic/Lymphatic: Denies easy bleeding, easy bruising or lymphadenopathy Allergic/Immunologic Allergic/Immunologic ED: Denies mouth swelling, tongue swelling or urticaria EXAM Physical Exam Const Vital Signs: 02/10/23 08:54 02/10/23 09:00 Temperature 97.6 F L Temperature Source Temporal Pulse Rate 118 H 88 Respiratory Rate 16 16 Blood Pressure 152/110 H 130/96 H Blood Pressure Mean 124 107 Pulse Ox 96 96 Oxygen Delivery Method Room Air Room Air Positive well nourished and well developed General Appearance ED: well developed and NAD HEENT Reports TM's clear and moist mucous membranes normocephalic and atraumatic; Negative for trauma or tenderness Tympanic Membrane ED: Yes TM's clear Eyes PERRL and EOMs intact bilaterally General Eye ED: Negative for pale conjunctiva or scleral icterus Neck no lymphadenopathy, supple and no JVD General: Negative for tenderness Chest Wall inspection of chest normal and palpation of chest normal Chest: Negative for tenderness Resp normal respiratory effort and clear to auscultation bilaterally Effort and Inspection: Negative for respiratory distress or pain with movement Auscultation: Negative for rhonchi, wheezes or diminished lung sounds Cardio regular rhythm, S1 normal heart sound, S2 normal heart sound and no murmurs Rate: tachycardic Peripheral Pulses: pulses 2+ throughout GI normal to inspection, nondistended, normoactive bowel sounds, soft to palpation, non-tender, non-distended and no masses Back/Spine no CVA tenderness and no thoracic nor lumbar tenderness Extremity normal to inspection General Extremety ED: Negative for edema General Extremity: Negative for edema Neuro oriented x3, CN's II-XII intact bilaterally, no sensory deficits noted and gait normal Sensorium / Orientation: awake, alert, oriented to person, oriented to place and oriented to time Motor Exam: strength 5/5 throughout and strength abnormal Psych mental status grossly normal Skin no rashes or lesions noted and no wounds MDM MDM MDM Narrative Medical decision making narrative: IV line established on arrival. Patient was given normal saline and Zofran 4 mg IV as well as Ativan 1 mg IV. I also ordered phenobarbital IV. CBC with differential obtained showed a white count of 7.4 with a hemoglobin of 16 and hematocrit of 45.3. Platelet count 260. Chemistries unremarkable. LFTs unremarkable. Alcohol level and tox screen pending. Case will be discussed with hospitalist to evaluate patient for admission. Lab Data Attestation: I reviewed the patient's lab results. Labs: Laboratory Results - last 24 hr 02/10/23 02/10/23 02/10/23 09:07 09:07 09:07 WBC 7.4 RBC 4.58 L Hgb 15.9 Hct 45.3 MCV 98.9 H MCH 34.7 H MCHC 35.1 RDW Std Deviation 49.7 H RDW Coeff of Pati 13.7 Plt Count 260 MPV 9.7 Immature Gran % (Auto) 0.400 Neut % (Auto) 77.3 H Lymph % (Auto) 11.1 L [place] % (Auto) 9.5 Eos % (Auto) 0.9 Baso % (Auto) 0.8 Absolute Neuts (auto) 5.7 Absolute Lymphs (auto) 0.82 L Nucleated RBC % 0 Sodium 137 Potassium 4.0 Chloride 108 H Carbon Dioxide 24.0 Anion Gap 5 BUN 14 Creatinine 0.98 Estim Creat Clear Calc 64.95 Est GFR (MDRD) Af Amer 96 Est GFR (MDRD) Non-Af 79 BUN/Creatinine Ratio 14.2 Glucose 118 H Calcium 9.5 Total Bilirubin 0.80 AST 31 ALT 32 Alkaline Phosphatase 126 H Total Protein 7.9 Albumin 3.7 Globulin 4.2 Albumin/Globulin Ratio 0.9 Ur Drug Screen Comment Ethyl Alcohol < 3.0 02/10/23 10:00 WBC RBC Hgb Hct MCV MCH MCHC RDW Std Deviation RDW Coeff of Pati Plt Count MPV Immature Gran % (Auto) Neut % (Auto) Lymph % (Auto) [place] % (Auto) Eos % (Auto) Baso % (Auto) Absolute Neuts (auto) Absolute Lymphs (auto) Nucleated RBC % Sodium Potassium Chloride Carbon Dioxide Anion Gap BUN Creatinine Estim Creat Clear Calc Est GFR (MDRD) Af Amer Est GFR (MDRD) Non-Af BUN/Creatinine Ratio Glucose Calcium Total Bilirubin AST ALT Alkaline Phosphatase Total Protein Albumin Globulin Albumin/Globulin Ratio Ur Drug Screen Comment Ethyl Alcohol Discharge Plan Triage Chief Complaint: Substance Abuse ED Provider: Abel Brasher Dx/Rx/DC Orders Clinical Impression: Alcohol abuse, Alcohol withdrawal, Admitted to alcohol detoxification center, History of hypertension Prescriptions: No Action metoprolol tartrate 100 mg tablet 100 mg PO BID duloxetine 60 mg capsule,delayed release(DR/EC) 60 cap PO DAILY atorvastatin 40 mg tablet 40 tab PO DAILY Label Comments: 1 tablet by mouth as directed aripiprazole 5 mg Tablet 5 mg PO DAILY thiamine HCl (vitamin B1) [Vitamin B-1] 100 mg Tablet 100 mg PO DAILYCM Qty: 30 2RF folic acid 1 mg Tablet 1 mg PO BREAKFAST Qty: 30 2RF amlodipine 5 mg tablet 5 mg PO DAILY Primary Care Provider: Graciela Ashley Referrals: Graciela Ashley, [Primary Care Provider] - Disposition Disposition: Acute Care Hospital [facility]
[2023-02-10] MEDS: LORazepam 2 MG/ML Syringe 1 MG IV (09:20)
[2023-02-10] MEDS: Ondansetron 4 MG/2 ML Vial IV (09:20)
[2023-02-10 09:25] LABS: Absolute Lymphocyte Count 0.82 X10^3/uL (0.83-4.51); Absolute Neutrophil Count 5.7 X10^3/uL (2.0-7.7); Basophil# 0.06 X10^3/uL; Basophil% 0.8 % (0-1); Eosinophil# 0.07 X10^3/uL; Eosinophils% 0.9 % (0-5); Hematocrit 45.3 % (40-54); Hemoglobin 15.9 g/dL (13.0-16.5); Lymphocyte # 0.82 X10^3/ul (0.83-4.51); Lymphocyte % 11.1 % (19-41); Mean Corp Hgb Conc 35.1 g/dL (32-36); Mean Corpuscular Hgb 34.7 pg (27.0-32.0); Mean Corpuscular Volume 98.9 fL (80-94); Mean Platelet Vol. 9.7 fl (6.2-12.0); Monocyte% 9.5 % (0-10); NRBC Flagged by Analyzer 0 % (0-5); Neutrophil # 5.72 X10^3/uL (2.7-7.7); Neutrophil % 77.3 % (47-70); Platelet Count 260 K/mm3 (150-450); RBC Distribution Width CV 13.7 % (11.6-14.6); RBC Distribution Width SD 49.7 fl (35.1-43.9); Red Blood Count 4.58 M/mm3 (4.6-6.2); White Blood Count 7.4 K/mm3 (4.4-11.0)
[2023-02-10 09:39] LABS: ALB/GLOB Ratio 0.9 RATIO (0.9-2.4); AST(SGOT) 31 U/L (15-37); Alanine Aminotransfer ALT/SGPT 32 U/L (16-61); Albumin, Serum 3.7 g/dL (3.2-5.0); Alkaline Phosphatase 126 U/L (45-117); Anion Gap 5 (5-15); BUN 14 mg/dL (7-18); BUN/Creat Ratio 14.2 RATIO (10-20); Calcium,Total 9.5 mg/dL (8.5-10.1); Chloride 108 mmol/L (98-107); Creatinine, Serum 0.98 mg/dL (0.70-1.30); EST Glomerular Filtration Rate 79 mL/min (>60); Est Glom Filt Rate - Afr Amer 96 mL/min (>60); Estimated Creatinine Clearance 64.95 ml/min; Globulin 4.2 g/dL (2.2-4.2); Glucose 118 mg/dL (74-106); Protein, Total 7.9 g/dL (6.4-8.2); Sodium Level 137 mmol/L (136-145)
[2023-02-10 09:51] LABS: Alcohol, Blood (Medical)-Serum < 3.0 mg/dL
[2023-02-10] MEDS: 0.9% Normal Saline 1,000 ML 150 ML IV (10:20)
--- NOTE | 2023-02-10 10:20 | PCM.HP.STD ---
HPI - General General Date of Admission: 02/10/23 Date of Service: 02/10/23 Chief Complaint: Acute alcohol withdrawal syndrome. HPI Narrative LANIE DELONG, is a 72 M who was brought to ED by EMS for alcohol detox. Patient stopped drinking alcohol around midnight. Patient has nausea and anxious. Patient drinks normally 12 cans of beer every day each 12 ounces. He has been drinking well for about 45 to 50 years. Denies any significant history of upper GI bleed, ascites or chronic stigmata of liver disease. He did not had abdominal imaging in our system. Patient denies any fever or chills. No chest pain tightness or congestion. Denies any acute shortness of breath. Patient does not have alcohol withdrawal sister in the past. Sometimes he gets auditory hallucinations. Denies any suicidal ideation or attempt. Patient has some diarrhea/loose stool but not very significant. In ED, patient was tachycardic heart rate 118/min, BP 152/110 was given phenobarbital dose 150 mg and heart rate and blood pressure improved. [facility] Medical History Acute alcoholic gastritis without hemorrhage Alcohol abuse Alcohol dependence Alcohol dependence Alcohol withdrawal Alcoholic cardiomyopathy Alcoholism Anxiety Anxiety Atrial fibrillation, chronic Atrial flutter, paroxysmal Chronic atrial fibrillation Depression with anxiety Desire for detoxification History of acute alcoholic hepatitis History of alcoholism HTN (hypertension) Left atrial enlargement Overweight Panic disorder Home Medications metoprolol tartrate 100 mg tablet 100 mg PO BID bp 10/03/19 [History Last Taken 11/06/22] atorvastatin 40 mg tablet 40 tab PO DAILY cholesterol 05/08/22 [History Last Taken 11/06/22] duloxetine 60 mg capsule,delayed release 60 cap PO DAILY mood 05/08/22 [History Last Taken Unknown] aripiprazole 5 mg tablet 5 mg PO DAILY mood 05/26/22 [History Last Taken 11/05/22] folic acid 1 mg tablet 1 mg PO BREAKFAST #30 tabs 11/13/22 [Rx Last Taken Unknown] thiamine HCl (vitamin B1) 100 mg tablet (Vitamin B-1) 100 mg PO DAILYCM #30 tabs 11/13/22 [Rx Last Taken Unknown] amlodipine 5 mg tablet 5 mg PO DAILY BP 12/15/22 [History Last Taken Unknown] Allergy/AdvReac Type Severity Reaction Status Date / Time No Known Allergies Allergy Verified 02/10/23 08:57 Family History Mother CVA (cerebral vascular accident) Father Cancer lung cancer Surgical History Hx of cholecystectomy Social History household members: none housing: apartment Smoking Status: Former smoker alcohol intake: current alcohol intake frequency: 3 or more drinks per day details: 24 12 ounce beers daily substance use type: does not use ROS ROS Narrative Constitutional: Reports fatigue and weakness. No fever HEENT: Reports systems reviewed and no addt'l complaints, except as documented Respiratory/Chest: Denies chest pain, shortness of breath at rest or with exertion Gastrointestinal: Denies coffee ground emesis, hematemesis or vomiting. Mild loose bowel movement Genitourinary: Denies burning urination or new urinary tract symptoms Musculoskeletal: Reports joint pain and limited range of motion Neurologic: Denies seizure-like activity. No strokelike symptoms skin: No ulcer. No rash Endocrinology: Reports systems reviewed and no addt'l complaints, except as documented Hematologic/Lymphatic: Reports systems reviewed and no addt'l complaints, except as documented Rest 14 ROS are negative except as mentioned in HPI Vital Signs Vital Signs Vital Signs: 02/10/23 08:54 02/10/23 09:00 Temperature 97.6 F L Temperature Source Temporal Pulse Rate 118 H 88 Respiratory Rate 16 16 Blood Pressure 152/110 H 130/96 H Blood Pressure Mean 124 107 Pulse Ox 96 96 Oxygen Delivery Method Room Air Room Air Weight Weight: 226 lb 11.2 oz Body Mass Index (BMI) 34.4 Physical Exam Narrative Physical exam General: Alert, Oriented x3, Cooperative. Dehydrated HEENT: Atraumatic, PERRLA, EOMI, Normocephalic Oral: Oral mucosa very dry. No Gingival or Mucosal Lesions/ Ulcerations Neck: Supple, No JVD, Negative Carotid Bruits Lungs: Air entry diminished in bilateral lung bases. No crepitation/rhonchi Cardiovascular: Regular rate, Regular Rhythm, Normal S1, Normal S2, No murmurs Abdomen: Bowel Sounds Present, Soft, Non Tender, Non-Distended. No palpable shifting dullness or fluid thrill. Liver not enlarged. Liver dialysis starts at 6 right ICS at midclavicular line : No renal angle tenderness. No suprapubic tenderness. Extremities: No edema, Capillary Refill Less than 3 Seconds Skin: No rashes, No breakdown Musculoskeletal: No Tenderness to Palpation of Joints or Extremities Neurological: Cranial nerves II-XII grossly intact, DTR 2+/4 and Symmetrical, Neuro grossly intact Psych/Mental Status: Normal Affect, Appropriate. Results Lab / Micro Data Result Diagrams: 02/10/23 09:07 02/10/23 09:07 Labs: Laboratory Results - last 24 hr 02/10/23 09:07: WBC 7.4, RBC 4.58 L, Hgb 15.9, Hct 45.3, MCV 98.9 H, MCH 34.7 H, MCHC 35.1, RDW Std Deviation 49.7 H, RDW Coeff of Pati 13.7, Plt Count 260, MPV 9.7, Immature Gran % (Auto) 0.400, Neut % (Auto) 77.3 H, Lymph % (Auto) 11.1 L, [facility] % (Auto) 9.5, Eos % (Auto) 0.9, Baso % (Auto) 0.8, Absolute Neuts (auto) 5.7, Absolute Lymphs (auto) 0.82 L, Nucleated RBC % 0 02/10/23 09:07: Sodium 137, Potassium 4.0, Chloride 108 H, Carbon Dioxide 24.0, Anion Gap 5, BUN 14, Creatinine 0.98, Estim Creat Clear Calc 64.95, Est GFR (MDRD) Af Amer 96, Est GFR (MDRD) Non-Af 79, BUN/Creatinine Ratio 14.2, Glucose 118 H, Calcium 9.5, Total Bilirubin 0.80, AST 31, ALT 32, Alkaline Phosphatase 126 H, Total Protein 7.9, Albumin 3.7, Globulin 4.2, Albumin/Globulin Ratio 0.9 02/10/23 09:07: Ethyl Alcohol < 3.0 02/10/23 10:00: Ur Drug Screen Comment Assessment & Plan Assessment/Plan (1) Alcohol withdrawal: PLAN: Plan 72-year-old gentleman is being admitted for acute alcohol withdrawal syndrome. 1. Acute alcohol withdrawal syndrome with history of chronic alcohol use disorder, dependence, tolerance and relapse: [facility] The patient on phenobarbital based order set along with other adjunctive medications as needed for alcohol withdrawal symptom control. CIWA monitor. Patient on gabapentin as needed as needed for seizure. U tox positive for barbiturates which was given in ED 2. Chronic alcohol liver disease: On exam liver seems small with a decrease in craniocaudal length. Liver ultrasound ordered. Alkaline phosphatase and GGT are elevated otherwise normal transaminases and total bilirubin. Albumin 3.7. PT/INR normal range. Serum alcohol level less than 3. 3. History of alcoholic cardiomyopathy: Patient last echo in 04/15/2022 showed an EF of 55% with a moderately enlarged left atrium and a mildly enlarged right atrium. Continue patient home medication metoprolol 4. Hyperlipidemia on home atorvastatin 5. Paroxysmal atrial fibrillation: Patient on metoprolol 100 mg twice daily. Twelve-lead EKG ordered. Heparin 5000 units subcutaneous every 12 hourly as DVT prophylaxis. The 6. Chronic major depression disorder: Patient on home duloxetine. Hold aripiprazole as it has significant interaction with phenobarbital as drug-induced. 7 history of tobacco abuse: Patient does not smoke anymore. Encouraged continued cessation. DVT prophylaxis on heparin subcu Living will/advanced directive/end of life care: Patient does not have living will or advanced directive. After discussion of benefits/risks procedures involved with full code, DNR CC arrest and DNR CC, the patient opted for full code. His brother is next of kin Patient does want artificial life support including intubation, tube feed, ventilator and/chest compression, central venous catheter, vasopressor and DC shock if needed Total time spent in [id number] encounter in discussion of advanced directive 17 minutes. Laboratory Results 02/10/23 09:07: WBC 7.4, RBC 4.58 L, Hgb 15.9, Hct 45.3, MCV 98.9 H, MCH 34.7 H, MCHC 35.1, RDW Std Deviation 49.7 H, RDW Coeff of Pati 13.7, Plt Count 260, MPV 9.7, Immature Gran % (Auto) 0.400, Neut % (Auto) 77.3 H, Lymph % (Auto) 11.1 L, [facility] % (Auto) 9.5, Eos % (Auto) 0.9, Baso % (Auto) 0.8, Absolute Neuts (auto) 5.7, Absolute Lymphs (auto) 0.82 L, Nucleated RBC % 0 02/10/23 09:07: Sodium 137, Potassium 4.0, Chloride 108 H, Carbon Dioxide 24.0, Anion Gap 5, BUN 14, Creatinine 0.98, Estim Creat Clear Calc 64.95, Est GFR (MDRD) Af Amer 96, Est GFR (MDRD) Non-Af 79, BUN/Creatinine Ratio 14.2, Glucose 118 H, Calcium 9.5, Total Bilirubin 0.80, AST 31, ALT 32, Alkaline Phosphatase 126 H, Total Protein 7.9, Albumin 3.7, Globulin 4.2, Albumin/Globulin Ratio 0.9 02/10/23 09:07: Ethyl Alcohol < 3.0 02/10/23 09:07: PT 13.2, INR 1.0 02/10/23 09:07: GGT 102 H 02/10/23 10:00: Urine Opiates Screen NEGATIVE, Urine Methadone Screen NEGATIVE, Ur Barbiturates Screen POSITIVE H, Ur Phencyclidine Scrn NEGATIVE, Ur Amphetamines Screen NEGATIVE, MDMA (Ecstasy) Screen NEGATIVE, U Benzodiazepines Scrn NEGATIVE, Urine Cocaine Screen NEGATIVE, U Cannabinoids Screen NEGATIVE, Ur Drug Screen Comment Charges/Coding Visit Charges Inpatient E&M: 20361 Init Hosp L3 Procedures Hospitalists Procedures: 42637 Advncd Care Plan 30 Min
[2023-02-10 10:21] LABS: Amphetamine Urine VISTA NEGATIVE (<1000 ng/mL); Barbiturate Urine VISTA POSITIVE (< 200 ng/mL); Benzodiazepine Urine VISTA NEGATIVE (< 200 ng/mL); Cocaine Urine VISTA NEGATIVE (< 300 ng/mL); Ecstacy Urine VISTA NEGATIVE (< 500 ng/mL); Methadone Urine VISTA NEGATIVE (< 300 ng/mL); PCP Urine VISTA NEGATIVE (< 25 ng/mL); THC Urine VISTA NEGATIVE (< 50 ng/mL); Vista UDS pH Range 5
--- NOTE | 2023-02-10 10:52 | CM.ED ---
Addendum entered by Sofi Mccabe 02/10/23 12:23: WALT updated Chris with APS patient has been admitted to [facility] for detox. STACIE Humphreys Original Note: Social Work Note SW contacted Chris with APS to report patient was being admitted to [facility] for detox and left a VM requesting a return phone call. SW contacting [facility] to coordinate care for patient due to high admission SW updated Hal treatment navigator, patient is being [facility] [place] [facility] Plan: [facility] STACIE Humphreys
[2023-02-10 10:58] LABS: Prothrombin Time (Protime)PT. 13.2 SECONDS (11.7-14.9)
[2023-02-10 11:31] LABS: GGTP 102 U/L (15-85)
[2023-02-10] MEDS: Lactated Ringers 1,000 ML 125 ML IV (12:13)
[2023-02-10] MEDS: Dicyclomine 10 MG Capsule 20 MG PO (12:13)
[2023-02-10] MEDS: Heparin Injection (Vial) 5,000 UNIT/ML VIAL 5000 UNIT SC ×2 (12:14→23:14)
[2023-02-10] MEDS: Phenobarbital 32.4 MG Tablet PO ×4 (12:14→23:17)
[2023-02-10] MEDS: Gabapentin 300 MG Capsule PO (12:14)
--- NOTE | 2023-02-10 14:26 | CASEMGMT ---
Social Work SW noting pt readmission for [facility] program to detox from [facility]. SW exploring options to assist pt with management of substance use and possibility of assisted living or Passport services that may beneficial to pt. SW reviewed pt chart, noted past referral (2..) had been sent to [facility] by this SW. SW called [facility] to follow up on referral and was told /[facility] was not able to reach pt. Pt was called by on December 25 and January [id number]. Pt also had a letter sent to address and did not respond. SW asked if pt can be added to list of referrals again and was told yes, that pt would be contacted within the next 5 days to set an appointment for an assessment. SW was told protocol is that referrals have to be addressed within the first 3-5 days of being received. worker also shared that assessment appointments are being scheduled out for several weeks. worker will add pt back on the list and asked that SW contact once pt is discharged in the hope that pt may be alert and oriented enough to answer phone call and comply with setting up an assessment appointment. PRISCILLA Christian
[2023-02-10] MEDS: hydrOXYzine PAM 25 MG Capsule 50 MG PO (15:00)
--- NOTE | 2023-02-10 15:05 | CASEMGMT ---
TC to 's office, pt last appt was Nov.21.
[2023-02-10] MEDS: Ensure Plus High Protein 120 ML LIQUID PO ×2 (16:19→23:13)
[2023-02-10] MEDS: Metoprolol Tartrate 100 MG Tablet PO (23:13)
[2023-02-10] MEDS: Atorvastatin Calcium 40 MG Tablet PO (23:14)
[2023-02-10] MEDS: traZODone 100 MG Tablet PO (23:14)
[2023-02-11] VITALS (7 sets, daily range): BP systolic 117–133; BP diastolic 75–96; PULSE 78–95; RESP 16–18; TEMP 36.6–36.8; O2SAT 94–97
[2023-02-11] MEDS: Phenobarbital 32.4 MG Tablet PO ×6 (05:08→23:56)
--- NOTE | 2023-02-11 07:00 | US_ITS ---
HISTORY: chronic alcohol liver disease. TECHNIQUE: Wheatley scale and color doppler imaging was performed of the right upper quadrant. 54 images. COMPARISON: None. FINDINGS: LIVER: 19.1 cm in length. Heterogeneous echotexture and nodular contour without focal lesion demonstrated. No intrahepatic ductal dilatation. No perihepatic ascites demonstrated. MAIN PORTAL VEIN: Patent. COMMON BILE DUCT: 3 mm in diameter. GALLBLADDER: No surgically absent. PANCREAS: Visualized proximal portion unremarkable. RIGHT KIDNEY: 11.6 cm in length with a cortical thickness of 1.8 cm. No hydronephrosis or gross renal mass demonstrated. US/Abdomen Limited IMPRESSION: Mild hepatomegaly with heterogeneity from hepatic steatosis or cirrhosis. Cholecystectomy. Electronically Signed: Angélica Newman MD at 9:10 EDT ,
[2023-02-11] MEDS: Thiamine Hydrochloride 100 MG Tablet PO (08:27)
[2023-02-11] MEDS: Folic Acid 1 MG Tablet PO (08:27)
[2023-02-11] MEDS: Heparin Injection (Vial) 5,000 UNIT/ML VIAL 5000 UNIT SC ×2 (10:18→20:01)
[2023-02-11] MEDS: Ensure Plus High Protein 120 ML LIQUID PO ×4 (10:18→20:01)
[2023-02-11] MEDS: amLODIPine 5 MG Tablet PO (10:18)
[2023-02-11] MEDS: Metoprolol Tartrate 100 MG Tablet PO ×2 (10:18→20:01)
[2023-02-11] MEDS: DULoxetine Hcl 60 MG Capsule PO (10:18)
--- NOTE | 2023-02-11 15:10 | PN.HOSP_ITS ---
Reason for Visit Reason for Visit: Diagnoses Alcohol use, unspecified with withdrawal, unspecified (02/10/23) Follow-up for acute alcohol withdrawal syndrome. Subjective Subjective Patient has multiple recurrent admissions, this is her fifth admission in this year Dr. Self 23 Objective Data Objective Data Vital Signs: Vital Signs Temp Pulse Resp BP Pulse Ox O2 Del Method 98.1 F 92 18 131/93 H 96 Room Air 02/11/23 08:24 02/11/23 10:18 02/11/23 08:24 02/11/23 10:18 02/11/23 08:24 02/11/23 08:37 Oxygen Delivery Method Room Air Weight: 226 lb 0.992 oz Body Mass Index (BMI) 34.3 Intake & Output: Intake and Output for Last 24 Hours 02/09/23 02/10/23 02/11/23 23:59 23:59 23:59 Intake Total 2021 Balance 2021 Lab / Micro Data Result Diagrams: 02/10/23 09:07 02/10/23 09:07 Radiography Diagnostic Testing: Radiology Impression Abdomen Ultrasound 02/11/23 07:00 IMPRESSION: Mild hepatomegaly with heterogeneity from hepatic steatosis or cirrhosis. Cholecystectomy. Electronically Signed: Angélica Newman MD at 9:10 EDT , Physical Exam Narrative Patient had some bad dreams but denies nightmares, suicidal thought or abnormal behavior. Physical exam General: Alert, Oriented x3, Cooperative. Dehydrated HEENT: Atraumatic, PERRLA, EOMI, Normocephalic Oral: Oral mucosa very dry. No Gingival or Mucosal Lesions/ Ulcerations Neck: Supple, No JVD, Negative Carotid Bruits Lungs: Air entry diminished in bilateral lung bases. No crepitation/rhonchi Cardiovascular: Regular rate, Regular Rhythm, Normal S1, Normal S2, No murmurs Abdomen: Bowel Sounds Present, Soft, Non Tender, Non-Distended. No palpable shifting dullness or fluid thrill. Liver not enlarged on exam : No dysuria. No renal angle tenderness. No suprapubic tenderness. Extremities: No edema, Capillary Refill Less than 3 Seconds Skin: No rashes, No breakdown Musculoskeletal: No Tenderness to Palpation of Joints or Extremities Neurological: Cranial nerves II-XII grossly intact, DTR 2+/4 and Symmetrical, Neuro grossly intact Psych/Mental Status: Flat affect. Assessment & Plan Assessment/Plan (1) Alcohol withdrawal: PLAN: Plan 72-year-old gentleman is being admitted for acute alcohol withdrawal syndrome. 1. Acute alcohol withdrawal syndrome with history of chronic alcohol use disorder, dependence, tolerance and relapse: Patient is being admitted on MedSurg floor. The patient on phenobarbital based order set along with other adjunctive medications as needed for alcohol withdrawal symptom control. CIWA monitor. Patient on gabapentin as needed as needed for seizure. U tox positive for barbiturates which was given in ED 02/11: Alcohol withdrawal symptoms are better. Discussed with the vocational case manager and social security benefits interviewer. I filled out the statement for expert evaluation for that patient not able to make decision as he is mentally impaired because of chronic alcohol use. He cannot take care of his health, low functional status with dependent ADL, cannot take care of his property in finance. Will need inpatient rehab. 2. Chronic alcohol liver disease: On exam liver seems small with a decrease in craniocaudal length. Liver ultrasound ordered. Alkaline phosphatase and GGT are elevated otherwise normal transaminases and total bilirubin. Albumin 3.7. PT/INR normal range. Serum alcohol level less than 3. 4: Abdominal ultrasound shows mild hepatomegaly with heterogeneity, nodular contour suggestive of cirrhosis. No high HPr. CBD 3 mm status postcholecystectomy. Pancreas unremarkable. 3. History of alcoholic cardiomyopathy: Patient last echo in 04/15/2022 showed an EF of 55% with a moderately enlarged left atrium and a mildly enlarged right atrium. Continue patient home medication metoprolol 4. Hyperlipidemia on home atorvastatin 5. Paroxysmal atrial fibrillation: Patient on metoprolol 100 mg twice daily. Twelve-lead EKG individually reviewed and shows A-fib at 120s on BuSpar. LAD. Heparin 5000 units subcutaneous every 12 hourly as DVT prophylaxis. 02/11: Heart rate is controlled. Heart rate 92/min. 6. Chronic major depression disorder: Patient on home duloxetine. Hold aripiprazole as it has significant interaction with phenobarbital as drug- induced. 7 history of tobacco abuse: Patient does not smoke anymore. Encouraged continued cessation. DVT prophylaxis on heparin subcu Living will/advanced directive/end of life care: Patient does not have living will or advanced directive. After discussion of benefits/risks procedures involved with full code, DNR CC arrest and DNR CC, the patient opted for full code. His brother is next of kin Patient does want artificial life support including intubation, tube feed, ventilator and/chest compression, central venous catheter, vasopressor and DC shock if needed Total time spent in [id number] encounter in discussion of advanced directive 17 minutes. Clinical Impression(s) from Imaging Studies Abdomen Ultrasound 02/11/23 07:00 IMPRESSION: Mild hepatomegaly with heterogeneity from hepatic steatosis or cirrhosis. Cholecystectomy. Laboratory Results 02/10/23 09:07: WBC 7.4, RBC 4.58 L, Hgb 15.9, Hct 45.3, MCV 98.9 H, MCH 34.7 H, MCHC 35.1, RDW Std Deviation 49.7 H, RDW Coeff of Pati 13.7, Plt Count 260, MPV 9.7, Immature Gran % (Auto) 0.400, Neut % (Auto) 77.3 H, Lymph % (Auto) 11.1 L, [place] % (Auto) 9.5, Eos % (Auto) 0.9, Baso % (Auto) 0.8, Absolute Neuts (auto) 5.7, Absolute Lymphs (auto) 0.82 L, Nucleated RBC % 0 02/10/23 09:07: Sodium 137, Potassium 4.0, Chloride 108 H, Carbon Dioxide 24.0, Anion Gap 5, BUN 14, Creatinine 0.98, Estim Creat Clear Calc 64.95, Est GFR (MDRD) Af Amer 96, Est GFR (MDRD) Non-Af 79, BUN/Creatinine Ratio 14.2, Glucose 118 H, Calcium 9.5, Total Bilirubin 0.80, AST 31, ALT 32, Alkaline Phosphatase 126 H, Total Protein 7.9, Albumin 3.7, Globulin 4.2, Albumin/Globulin Ratio 0.9 02/10/23 09:07: Ethyl Alcohol < 3.0 02/10/23 09:07: PT 13.2, INR 1.0 02/10/23 09:07: GGT 102 H 02/10/23 10:00: Urine Opiates Screen NEGATIVE, Urine Methadone Screen NEGATIVE, Ur Barbiturates Screen POSITIVE H, Ur Phencyclidine Scrn NEGATIVE, Ur Amphetam amy Screen NEGATIVE, MDMA (Ecstasy) Screen NEGATIVE, U Benzodiazepines Scrn NEGATIVE, Urine Cocaine Screen NEGATIVE, U Cannabinoids Screen NEGATIVE, Ur Drug Screen Comment Charges/Coding Visit Charges Inpatient E&M: 15822 Subs Hosp L2
--- NOTE | 2023-02-11 16:02 | CHAPLAIN ---
Type of Pastoral Visit ___ Initial Visit ___ Follow-up Visit ___ On-call Visit ___ General Patient Visit ___ Spiritual Assessment ___ Family Conference ___ Bereavement ___ Rapid Response ___ Code Blue ___ Other (describe below) Pastoral Care Referral From ___ Patient ___ Family ___ Nurse ___ Physician ___ Machinist/Machine Builder ___ Pit Clerk ___ Other (describe below) Sacrament/Intervention ___ Active listening ___ Anointing ___ Nondenominational ___ Bereavement ___ Communion ___ Yaneth exploration ___ ___ Life review ___ Prayer ___ Reconciliation ___ Sacrament of Sick ___ Supportive presence ___ Wedding ___ Other (describe below) Pastoral Comments patient is soundly sleeping; calling card left in room
[2023-02-11] MEDS: Atorvastatin Calcium 40 MG Tablet PO (20:01)
[2023-02-12 03:49] VITALS: BP 133/94; PULSE 84; RESP 16; TEMP 36.6; O2SAT 98
[2023-02-12] MEDS: Phenobarbital 32.4 MG Tablet PO ×5 (03:52→20:37)
[2023-02-12 08:26] VITALS: BP 136/96; PULSE 82; RESP 17; TEMP 36.7; O2SAT 96
[2023-02-12 08:37] VITALS: PULSE 82
[2023-02-12] MEDS: Gabapentin 300 MG Capsule PO (08:37)
[2023-02-12] MEDS: Thiamine Hydrochloride 100 MG Tablet PO (08:37)
[2023-02-12] MEDS: amLODIPine 5 MG Tablet PO (08:37)
[2023-02-12] MEDS: DULoxetine Hcl 60 MG Capsule PO (08:37)
[2023-02-12] MEDS: Metoprolol Tartrate 100 MG Tablet PO ×2 (08:37→20:36)
[2023-02-12] MEDS: Folic Acid 1 MG Tablet PO (08:37)
[2023-02-12] MEDS: Heparin Injection (Vial) 5,000 UNIT/ML VIAL 5000 UNIT SC ×2 (08:44→20:36)
[2023-02-12] MEDS: Ensure Plus High Protein 120 ML LIQUID PO ×4 (08:44→20:36)
--- NOTE | 2023-02-12 11:44 | CASEMGMT ---
Social Work Phone call placed to pt brother Roby Mccabe and informed that pt is admitted to hospital. SW invited Roby to attend plan of care meeting tomorrow to discuss pt's care going forward. Roby states he would be interested in attending and will be available via conference call. Roby states his sister would also want to be in the meeting. Roby called sister Shanell and then called this worker back confirming. Both Roby and Shanell would like to join care meeting via care conference. PRISCILLA Yin
--- NOTE | 2023-02-12 13:18 | PCM.PN.HOSP ---
Reason for Visit Reason for Visit: Diagnoses Alcohol use, unspecified with withdrawal, unspecified (02/10/23) Subjective Subjective Follow-up for acute alcohol withdrawal syndrome. Patient had urinary incontinence twice this week. Multiple awakening. Bad dreams but no nightmares or hallucination. Objective Data Objective Data Vital Signs: Vital Signs Temp Pulse Resp BP Pulse Ox O2 Del Method 98.1 F 82 17 136/96 H 96 Room Air 02/12/23 08:26 02/12/23 08:37 02/12/23 08:26 02/12/23 08:26 02/12/23 08:26 02/12/23 08:28 Oxygen Delivery Method Room Air Weight: 226 lb 0.992 oz Body Mass Index (BMI) 34.3 Intake & Output: Intake and Output for Last 24 Hours 02/10/23 02/11/23 02/12/23 23:59 23:59 23:59 Intake Total 2021 Balance 2021 Lab / Micro Data Result Diagrams: 02/10/23 09:07 02/10/23 09:07 Physical Exam Narrative Patient had some bad dreams but denies nightmares, suicidal thought or abnormal behavior. Physical exam General: Alert, Oriented x3, Cooperative. Hydrated. HEENT: Atraumatic, PERRLA, EOMI, Normocephalic Oral: Oral mucosa moist. No Gingival or Mucosal Lesions/ Ulcerations Neck: Supple, No JVD, Negative Carotid Bruits Lungs: Air entry diminished in bilateral lung bases. No crepitation/rhonchi Cardiovascular: Regular rate, Regular Rhythm, Normal S1, Normal S2, No murmurs Abdomen: Bowel Sounds Present, Soft, Non Tender, Non-Distended. No palpable shifting dullness or fluid thrill. Liver not enlarged on exam : No dysuria. No renal angle tenderness. No suprapubic tenderness. Extremities: No edema, Capillary Refill Less than 3 Seconds Skin: No rashes, No breakdown Musculoskeletal: No Tenderness to Palpation of Joints or Extremities Neurological: Cranial nerves II-XII grossly intact, DTR 2+/4 and Symmetrical, Neuro grossly intact Psych/Mental Status: Flat affect. Withdrawn facies. Assessment & Plan Assessment/Plan (1) Alcohol withdrawal: PLAN: Plan 72-year-old gentleman is being admitted for acute alcohol withdrawal syndrome. 1. Acute alcohol withdrawal syndrome with history of chronic alcohol use disorder, dependence, tolerance and relapse: Patient is being admitted on MedSur floor. The patient on phenobarbital based order set along with other adjunctive medications as needed for alcohol withdrawal symptom control. CIWA monitor. Patient on gabapentin as needed as needed for seizure. U tox positive for barbiturates which was given in ED 02/11: Alcohol withdrawal symptoms are better. Discussed with the case picker and mental health social worker. I filled out the statement for expert evaluation for that patient not able to make decision as he is mentally impaired because of chronic alcohol use. He cannot take care of his health, low functional status with dependent ADL, cannot take care of his property in finance. Will need inpatient rehab. 02/12: Discussed with the nursing staff, case picker and mental health social worker: 2. Chronic alcohol liver disease: On exam liver seems small with a decrease in craniocaudal length. Liver ultrasound ordered. Alkaline phosphatase and GGT are elevated otherwise normal transaminases and total bilirubin. Albumin 3.7. PT/INR normal range. Serum alcohol level less than 3. 02/11: Abdominal ultrasound shows mild hepatomegaly with heterogeneity, nodular contour suggestive of compensated cirrhosis. No high HPr. CBD 3 mm status postcholecystectomy. Pancreas unremarkable. 3. History of alcoholic cardiomyopathy: Patient last echo in 04/15/2022 showed an EF of 55% with a moderately enlarged left atrium and a mildly enlarged right atrium. Continue patient home medication metoprolol 4. Hyperlipidemia on home atorvastatin 5. Paroxysmal atrial fibrillation: Patient on metoprolol 100 mg twice daily. Twelve-lead EKG individually reviewed and shows A-fib at 120s on BuSpar. LAD. Heparin 5000 units subcutaneous every 12 hourly as DVT prophylaxis. 02/11: Heart rate is controlled. Heart rate 92/min. 6. Chronic major depression disorder: Patient on home duloxetine. Hold aripiprazole as it has significant interaction with phenobarbital as drug-induced. 7 history of tobacco abuse: Patient does not smoke anymore. Encouraged continued cessation. DVT prophylaxis on heparin subcu Living will/advanced directive/end of life care: Patient does not have living will or advanced directive. After discussion of benefits/risks procedures involved with full code, DNR CC arrest and DNR CC, the patient opted for full code. His brother is next of kin Patient does want artificial life support including intubation, tube feed, ventilator and/chest compression, central venous catheter, vasopressor and DC shock if needed Total time spent in [id number] encounter in discussion of advanced directive 17 minutes. Clinical Impression(s) from Imaging Studies Abdomen Ultrasound 02/11/23 07:00 IMPRESSION: Mild hepatomegaly with heterogeneity from hepatic steatosis or cirrhosis. Cholecystectomy. Laboratory Results 02/10/23 09:07: WBC 7.4, RBC 4.58 L, Hgb 15.9, Hct 45.3, MCV 98.9 H, MCH 34.7 H, MCHC 35.1, RDW Std Deviation 49.7 H, RDW Coeff of Pati 13.7, Plt Count 260, MPV 9.7, Immature Gran % (Auto) 0.400, Neut % (Auto) 77.3 H, Lymph % (Auto) 11.1 L, [place] % (Auto) 9.5, Eos % (Auto) 0.9, Baso % (Auto) 0.8, Absolute Neuts (auto) 5.7, Absolute Lymphs (auto) 0.82 L, Nucleated RBC % 0 02/10/23 09:07: Sodium 137, Potassium 4.0, Chloride 108 H, Carbon Dioxide 24.0, Anion Gap 5, BUN 14, Creatinine 0.98, Estim Creat Clear Calc 64.95, Est GFR (MDRD) Af Amer 96, Est GFR (MDRD) Non-Af 79, BUN/Creatinine Ratio 14.2, Glucose 118 H, Calcium 9.5, Total Bilirubin 0.80, AST 31, ALT 32, Alkaline Phosphatase 126 H, Total Protein 7.9, Albumin 3.7, Globulin 4.2, Albumin/Globulin Ratio 0.9 02/10/23 09:07: Ethyl Alcohol < 3.0 02/10/23 09:07: PT 13.2, INR 1.0 02/10/23 09:07: GGT 102 H 02/10/23 10:00: Urine Opiates Screen NEGATIVE, Urine Methadone Screen NEGATIVE, Ur Barbiturates Screen POSITIVE H, Ur Phencyclidine Scrn NEGATIVE, Ur Amphetamines Screen NEGATIVE, MDMA (Ecstasy) Screen NEGATIVE, U Benzodiazepines Scrn NEGATIVE, Urine Cocaine Screen NEGATIVE, U Cannabinoids Screen NEGATIVE, Ur Drug Screen Comment Charges/Coding Visit Charges Inpatient E&M: 77576 Subs Hosp L2
[2023-02-12 14:59] VITALS: BP 124/82; PULSE 96; RESP 17; TEMP 36.6; O2SAT 87
[2023-02-12] MEDS: hydrOXYzine PAM 25 MG Capsule 50 MG PO (15:03)
--- NOTE | 2023-02-12 15:32 | CHAPLAIN ---
Type of Pastoral Visit _x__ Initial Visit ___ Follow-up Visit ___ On-call Visit ___ General Patient Visit ___ Spiritual Assessment ___ Family Conference ___ Bereavement ___ Rapid Response ___ Code Blue ___ Other (describe below) Pastoral Care Referral From _x__ Patient ___ Family ___ Nurse ___ Physician ___ Driver Guard ___ Private Banker ___ Other (describe below) Sacrament/Intervention _x__ Active listening ___ Anointing ___ Evangelical ___ Bereavement ___ Communion ___ Yaneth exploration ___ _x__ Life review ___ Prayer ___ Reconciliation ___ Sacrament of Sick _x__ Supportive presence ___ Wedding ___ Other (describe below) Pastoral Comments patient was pleasant and openly admitted his need to stop his alcohol abuse and find something else to do with his time/life and I've learned about cirrhosis and I have to be serious; pt says he wants to stop but does not give indicators of a plan;pt has very limited life activity and supportive relationships; pt says he is not zoroastrianism and has not tried quaker for help; pt declines any further needs or desire for support;
--- NOTE | 2023-02-12 15:53 | CASEMGMT ---
AGUILAR MAGALLANES into pt room, pt sitting up in bed coloring. Discussed with pt following up with and other options of physicians who visit at home. Pt states this may be a good idea as he does not drive and has no car. Pt was not willing to decide on this quite yet but would like to think about it. Pt is aware that AGUILAR MAGALLANES will check back with him tomorrow. Pt then began speaking of a . It did not appear as patient was able to comprehend the questions being asked. AGUILAR MAGALLANES will cont to follow.
[2023-02-12 20:31] VITALS: BP 114/68; PULSE 95; RESP 20; TEMP 36.9; O2SAT 94
[2023-02-12 20:36] VITALS: BP 114/68; PULSE 95
[2023-02-12] MEDS: Atorvastatin Calcium 40 MG Tablet PO (20:36)
[2023-02-12] MEDS: 0.9% Saline Lock 10 ML Syringe IV (20:38)
[2023-02-13] VITALS (7 sets, daily range): BP systolic 118–140; BP diastolic 89–106; PULSE 79–86; RESP 18–20; TEMP 36.4–37.1; O2SAT 94–96
[2023-02-13] MEDS: Phenobarbital 32.4 MG Tablet PO ×4 (02:32→21:09)
[2023-02-13] MEDS: Metoprolol Tartrate 100 MG Tablet PO ×2 (07:38→21:11)
[2023-02-13] MEDS: DULoxetine Hcl 60 MG Capsule PO (07:38)
[2023-02-13] MEDS: amLODIPine 5 MG Tablet PO (07:38)
[2023-02-13] MEDS: Folic Acid 1 MG Tablet PO (07:38)
[2023-02-13] MEDS: Thiamine Hydrochloride 100 MG Tablet PO (07:38)
[2023-02-13] MEDS: Ensure Plus High Protein 120 ML LIQUID PO ×4 (07:41→21:09)
[2023-02-13] MEDS: Heparin Injection (Vial) 5,000 UNIT/ML VIAL 5000 UNIT SC ×2 (09:44→21:10)
--- NOTE | 2023-02-13 10:50 | PCM.PN.HOSP ---
Subjective Subjective No issues overnight, he is deemed to lack capacity, which I do agree with. He does appear to lack insight into his motivations for drinking and to his lack of ability for being able to quit drinking he laughingly describes that if he does not quit drinking his liver will fall out of him. Objective Data Objective Data Vital Signs: Vital Signs Temp Pulse Resp BP Pulse Ox O2 Del Method 98.6 F 80 18 125/106 H 94 Room Air 02/13/23 07:22 02/13/23 07:38 02/13/23 07:22 02/13/23 07:22 02/13/23 07:22 02/13/23 07:22 Oxygen Delivery Method Room Air Weight: 226 lb 0.992 oz Body Mass Index (BMI) 34.3 Intake & Output: Intake and Output for Last 24 Hours 02/12/23 02/13/23 02/14/23 03:59 03:59 03:59 Intake Total 440 / 440 Balance 440 / 440 Lab / Micro Data Result Diagrams: 02/10/23 09:07 02/10/23 09:07 Physical Exam Narrative General: Alert, Oriented x3, Cooperative, No apparent distress HEENT: Atraumatic, PERRLA, EOMI, Normocephalic Oral: Moist Mucosa Neck: Supple, No JVD Lungs: Diminished, Normal air movement, No rhonchi, No wheeze, No rales Cardiovascular: Regular rate, Regular Rhythm, Normal S1, Normal S2, No murmurs Abdomen: Soft, Non Tender, Non-Distended, No Hepato-splenomegaly Extremities: No edema, Capillary Refill Less than 3 Seconds Skin: No rashes, No breakdown Musculoskeletal: No Tenderness to Palpation of Joints or Extremities Neurological: Cranial nerves II-XII grossly intact, Motor Exam 5/5 strength throughout, Sensory exam intact to light touch and pain Psych/Mental Status: Normal Affect, Appropriate Assessment & Plan Assessment/Plan (1) Alcohol withdrawal: PLAN: Plan 1. Acute alcohol withdrawal syndrome with history of chronic alcohol use disorder, dependence, tolerance and relapse: Patient is being admitted on MedSurg floor. The patient on phenobarbital based order set along with other adjunctive medications as needed for alcohol withdrawal symptom control. CIWA monitor. Patient on gabapentin as needed as needed for seizure. U tox positive for barbiturates which was given in ED 02/11: Alcohol withdrawal symptoms are better. Discussed with the bilingual patient support caseworker and child protective services social worker. I filled out the statement for expert evaluation for that patient not able to make decision as he is mentally impaired because of chronic alcohol use. He cannot take care of his health, low functional status with dependent ADL, cannot take care of his property in finance. Will need inpatient rehab. 02/12: Discussed with the nursing staff, bilingual patient support caseworker and child protective services social worker: 02/13: Prior colleague filled out paperwork for guardianship secondary to his lack of capacity. I do agree with this, he has been unable to stay sober and take care of himself at home and he lacks insight into his disease process 2. Chronic alcohol liver disease: On exam liver seems small with a decrease in craniocaudal length. Liver ultrasound ordered. Alkaline phosphatase and GGT are elevated otherwise normal transaminases and total bilirubin. Albumin 3.7. PT/INR normal range. Serum alcohol level less than 3. 02/11: Abdominal ultrasound shows mild hepatomegaly with heterogeneity, nodular contour suggestive of compensated cirrhosis. No high HPr. CBD 3 mm status postcholecystectomy. Pancreas unremarkable. 3. History of alcoholic cardiomyopathy: Patient last echo in 04/15/2022 showed an EF of 55% with a moderately enlarged left atrium and a mildly enlarged right atrium. Continue patient home medication metoprolol 4. Hyperlipidemia on home atorvastatin 5. Paroxysmal atrial fibrillation: Patient on metoprolol 100 mg twice daily. Twelve-lead EKG individually reviewed and shows A-fib at 120s on BuSpar. LAD. Heparin 5000 units subcutaneous every 12 hourly as DVT prophylaxis. 02/11: Heart rate is controlled. Heart rate 92/min. 6. Chronic major depression disorder: Patient on home duloxetine. Hold aripiprazole as it has significant interaction with phenobarbital as drug-induced. DVT: Heparin Charges/Coding Visit Charges Inpatient E&M: 84917 Subs Hosp L2
--- NOTE | 2023-02-13 14:49 | CASEMGMT ---
Addendum entered by Chelly Montelongo 02/13/23 16:11: Pt to dc today. Pt does not have transportation home. Taxi voucher approved. AGUILAR MAGALLANES into pt room, pt is aware that a taxi voucher will be given but he can only be taken home and no errands can be run nor can he be taken downtown. Pt agreeable to this and denies any further needs. Original Note: AGUILAR MAGALLANES into pt room, pt sitting on bed, discussed with patient again visiting physicians services. Pt states he would like to continue with Dr. Ashley instead of having a doctor come to his home. He states he will do his follow up appt. Pt denies any further needs.
--- NOTE | 2023-02-13 15:41 | CASEMGMT ---
Social Work Plan of care meeting held today with collaborating staff. Chelly RNCM, Akila detox coordinator, Era MAGALLANES bank sales and service manager, Yolette MAGALLANES director, Mellissa HOFFMAN3 bank sales and service manager, Edilma GODOY, Tawanna GODOY and this sql report writer attended meeting along with pt's brother Roby and pts sister Shanell, who attended on conference call. Pt with multiple visits over the last year which have increased in frequency over the past few months. Team collaborating on ideas to keep pt safe once he returns home and to reduce hospital readmissions. Options discussed were [facility], [facility], [facility], Assisted Living, visiting physicians, alcohol treatment with [facility] and Guardianship. Pt brother and sister were actively participating in conversation. After meeting SW and pt brother Roby met with Pt to discuss options. Pt was lucid throughout entire conversation and able to answer questions appropriately and expand on thoughts and ideas. Pt refusing options of [facility] and assisted living. Pt open to a referral to [facility] for Care Management. Pt states he is agreeable to followup with [facility] for alcohol treatment. Pt also stating that he does not want to take direction from his older brother. Physician updated on outcomes of meeting. Phone call placed to [facility] and spoke with Radha. Radha states she will contact Pt on Thursday to complete an assessment. WALT updated pt and encouraged him to answer phone and talk to the tarp repairer. WALT provided name and phone number of tarp repairer to look for on caller ID. Pt agreeable to take call. PRISCILLA Yin
[2023-02-13] MEDS: Atorvastatin Calcium 40 MG Tablet PO (21:11)
[2023-02-13] MEDS: traZODone 100 MG Tablet PO (21:17)
[2023-02-13] MEDS: hydrOXYzine PAM 25 MG Capsule 50 MG PO (21:17)
[2023-02-13] MEDS: 0.9% Saline Lock 10 ML Syringe IV (21:30)
[2023-02-14 02:48] VITALS: BP 137/90; PULSE 77; RESP 18; TEMP 35.8; O2SAT 99
[2023-02-14] MEDS: Phenobarbital 32.4 MG Tablet PO ×2 (02:51→08:07)
[2023-02-14 07:20] LABS: Absolute Lymphocyte Count 0.86 X10^3/uL (0.83-4.51); Absolute Neutrophil Count 5.3 X10^3/uL (2.0-7.7); Basophil# 0.03 X10^3/uL; Basophil% 0.4 % (0-1); Eosinophil# 0.16 X10^3/uL; Eosinophils% 2.2 % (0-5); Hematocrit 42.2 % (40-54); Hemoglobin 14.1 g/dL (13.0-16.5); Lymphocyte # 0.86 X10^3/ul (0.83-4.51); Lymphocyte % 11.6 % (19-41); Mean Corp Hgb Conc 33.4 g/dL (32-36); Mean Corpuscular Hgb 34.3 pg (27.0-32.0); Mean Corpuscular Volume 102.7 fL (80-94); Mean Platelet Vol. 10.2 fl (6.2-12.0); Monocyte# 0.99 X10^3/uL; Monocyte% 13.4 % (0-10); NRBC Flagged by Analyzer 0 % (0-5); Neutrophil # 5.33 X10^3/uL (2.7-7.7); Neutrophil % 71.9 % (47-70); Platelet Count 169 K/mm3 (150-450); RBC Distribution Width CV 13.5 % (11.6-14.6); RBC Distribution Width SD 51.4 fl (35.1-43.9); Red Blood Count 4.11 M/mm3 (4.6-6.2); White Blood Count 7.4 K/mm3 (4.4-11.0)
[2023-02-14 07:54] LABS: ALB/GLOB Ratio 0.8 RATIO (0.9-2.4); AST(SGOT) 18 U/L (15-37); Alanine Aminotransfer ALT/SGPT 22 U/L (16-61); Alkaline Phosphatase 100 U/L (45-117); Anion Gap 3 (5-15); BUN 20 mg/dL (7-18); BUN/Creat Ratio 21.4 RATIO (10-20); Calcium,Total 9.3 mg/dL (8.5-10.1); Chloride 108 mmol/L (98-107); Creatinine, Serum 0.93 mg/dL (0.70-1.30); EST Glomerular Filtration Rate 84 mL/min (>60); Est Glom Filt Rate - Afr Amer 102 mL/min (>60); Estimated Creatinine Clearance 68.44 ml/min; Globulin 3.8 g/dL (2.2-4.2); Glucose 93 mg/dL (74-106); Potassium 3.9 mmol/L (3.5-5.1); Protein, Total 6.8 g/dL (6.4-8.2); Sodium Level 139 mmol/L (136-145)
[2023-02-14 07:57] VITALS: BP 127/92; PULSE 85; RESP 18; TEMP 36.6; O2SAT 95
[2023-02-14 08:07] VITALS: PULSE 85
[2023-02-14] MEDS: Metoprolol Tartrate 100 MG Tablet PO (08:07)
[2023-02-14] MEDS: Thiamine Hydrochloride 100 MG Tablet PO (08:07)
[2023-02-14] MEDS: Folic Acid 1 MG Tablet PO (08:07)
[2023-02-14] MEDS: amLODIPine 5 MG Tablet PO (08:07)
[2023-02-14] MEDS: Heparin Injection (Vial) 5,000 UNIT/ML VIAL 5000 UNIT SC (08:07)
[2023-02-14] MEDS: DULoxetine Hcl 60 MG Capsule PO (08:07)
[2023-02-14] MEDS: Ensure Plus High Protein 120 ML LIQUID PO (08:13)
--- NOTE | 2023-02-14 10:58 | DCINST_ITS ---
Discharge Instructions Diet Discharge Diet: Low fat / Low cholesterol Activity Discharge Activity: Return to Normal Activity Dressing / Incision Call your doctor if you observe: Fever of 101 or Higher, Shortness of breath, Dizziness, Fainting spells, Swelling in the ankles, Chest pain and Increased palpitations (irregular heartbeat) Follow Up Care Test Results: Test results from this visit will be discussed in further detail at your follow- up appointment, if applicable. Discharge Plan Admission Admit Date/Time: 02/10/23 10:15 Attending Provider: Leonid Marie Primary Care Provider: Graciela Ashley Consulting Providers: Arsh Hunter Discharge Orders/Prescriptions Prescriptions: Continued metoprolol tartrate 100 mg tablet 100 mg PO BID duloxetine 60 mg capsule,delayed release(DR/EC) 60 cap PO DAILY atorvastatin 40 mg tablet 40 tab PO DAILY Label Comments: 1 tablet by mouth as directed aripiprazole 5 mg Tablet 5 mg PO DAILY thiamine HCl (vitamin B1) [Vitamin B-1] 100 mg Tablet 100 mg PO DAILYCM Qty: 30 2RF folic acid 1 mg Tablet 1 mg PO BREAKFAST Qty: 30 2RF amlodipine 5 mg tablet 5 mg PO DAILY Referrals / Follow Up: Graciela Ashley, [Primary Care Provider] - Within 1 Week Disposition Disposition (needs filled in before D/C Order can be placed): Home, Self Care
--- NOTE | 2023-02-14 11:06 | PCM.DC.SUM ---
Providers Date of Admission: 02/10/23 Primary Care Physician: Graciela Ashley DO Reason For Visit: ALCOHOL USE DISORDER Diagnosis Discharge Diagnosis (1) Alcohol withdrawal: Status: Acute Code(s): F10.939 - Alcohol use, unspecified with withdrawal, unspecified Medications at Discharge Home Medications metoprolol tartrate 100 mg tablet 100 mg PO BID bp 10/03/19 atorvastatin 40 mg tablet 40 tab PO DAILY cholesterol 05/08/22 duloxetine 60 mg capsule,delayed release 60 cap PO DAILY mood 05/08/22 aripiprazole 5 mg tablet 5 mg PO DAILY mood 05/26/22 folic acid 1 mg tablet 1 mg PO BREAKFAST #30 tabs 11/13/22 thiamine HCl (vitamin B1) 100 mg tablet (Vitamin B-1) 100 mg PO DAILYCM #30 tabs 11/13/22 amlodipine 5 mg tablet 5 mg PO DAILY BP 12/15/22 Hospital Course Operations None Procedures None Summary of Care Provided Minutes Spent on Discharge: 34 Hospital Course: Per HPI: LANIE DELONG, is a 72 M who was brought to ED by EMS for alcohol detox.? Patient stopped drinking alcohol around midnight.? Patient has nausea and anxious.? Patient drinks normally 12 cans of beer every day each 12 ounces.? He has been drinking well for about 45 to 50 years.? Denies any significant history of upper GI bleed, ascites or chronic stigmata of liver disease.? He did not had abdominal imaging in our system. Patient denies any fever or chills.? No chest pain tightness or congestion.? Denies any acute shortness of breath.? Patient does not have alcohol withdrawal sister in the past.? Sometimes he gets auditory hallucinations.? Denies any suicidal ideation or attempt. Patient has some diarrhea/loose stool but not very significant. In ED, patient was tachycardic heart rate 118/min, BP 152/110 was given phenobarbital dose 150 mg and heart rate and blood pressure improved. Hospital Course: 1. Acute alcohol withdrawal syndrome with history of chronic alcohol use disorder, dependence, tolerance and relapse: Patient is being admitted on MedSurg floor. The patient on phenobarbital based order set along with other adjunctive medications as needed for alcohol withdrawal symptom control. CIWA monitor. Patient on gabapentin as needed as needed for seizure. U tox positive for barbiturates which was given in ED 02/11: Alcohol withdrawal symptoms are better. Discussed with the bilingual case manager and social work lecturer. I filled out the statement for expert evaluation for that patient not able to make decision as he is mentally impaired because of chronic alcohol use. He cannot take care of his health, low functional status with dependent ADL, cannot take care of his property in finance. Will need inpatient rehab. 02/12: Discussed with the nursing staff, bilingual case manager and social work lecturer: 02/13: Prior colleague filled out paperwork for guardianship secondary to his lack of capacity. I do agree with this, he has been unable to stay sober and take care of himself at home and he lacks insight into his disease process 02/14: Social work and case monitor had a family meeting yesterday and felt that he did not lack capacity and he did not want any outside treatment so no further effort was placed into obtaining guardianship. His withdrawal symptoms have resolved therefore we will plan to discharge him home today. I discussed with him the plan for discharge she expressed understanding of the risk and benefits of going home and would like to go home today. Given the findings on his abdominal ultrasound I do recommend following up with his PCP in 1 week to manage outpatient evaluation possible cirrhosis 2. Chronic alcohol liver disease: On exam liver seems small with a decrease in craniocaudal length. Liver ultrasound ordered. Alkaline phosphatase and GGT are elevated otherwise normal transaminases and total bilirubin. Albumin 3.7. PT/INR normal range. Serum alcohol level less than 3. 02/11: Abdominal ultrasound shows mild hepatomegaly with heterogeneity, nodular contour suggestive of compensated cirrhosis. No high HPr. CBD 3 mm status postcholecystectomy. Pancreas unremarkable. 3. History of alcoholic cardiomyopathy: Patient last echo in 04/15/2022 showed an EF of 55% with a moderately enlarged left atrium and a mildly enlarged right atrium. Continue patient home medication metoprolol 4. Hyperlipidemia on home atorvastatin 5. Paroxysmal atrial fibrillation: Patient on metoprolol 100 mg twice daily. Twelve-lead EKG individually reviewed and shows A-fib at 120s on BuSpar. LAD. Heparin 5000 units subcutaneous every 12 hourly as DVT prophylaxis. 02/11: Heart rate is controlled. Heart rate 92/min. 6. Chronic major depression disorder: Patient on home duloxetine. Hold aripiprazole as it has significant interaction with phenobarbital as drug-induced. Physical Exam Narrative General: Alert, Oriented x3, Cooperative, No apparent distress HEENT: Atraumatic, PERRLA, EOMI, Normocephalic Oral: Moist Mucosa Neck: Supple, No JVD Lungs: Diminished, Normal air movement, No rhonchi, No wheeze, No rales Cardiovascular: Regular rate, Regular Rhythm, Normal S1, Normal S2, No murmurs Abdomen: Soft, Non Tender, Non-Distended, No Hepato-splenomegaly Extremities: No edema, Capillary Refill Less than 3 Seconds Skin: No rashes, No breakdown Musculoskeletal: No Tenderness to Palpation of Joints or Extremities Neurological: Cranial nerves II-XII grossly intact, Motor Exam 5/5 strength throughout, Sensory exam intact to light touch and pain Psych/Mental Status: Normal Affect, Appropriate Weight / BMI Weight Weight: 226 lb 0.992 oz Body Mass Index (BMI) 34.3 ABG / Lab / Microbiology Data Result Diagrams: 02/14/23 06:54 02/14/23 06:54 Laboratory: Laboratory Results - last 24 hr 02/14/23 06:54: WBC 7.4, RBC 4.11 L, Hgb 14.1, Hct 42.2, MCV 102.7 H, MCH 34.3 H, MCHC 33.4, RDW Std Deviation 51.4 H, RDW Coeff of Pati 13.5, Plt Count 169, MPV 10.2, Immature Gran % (Auto) 0.500, Neut % (Auto) 71.9 H, Lymph % (Auto) 11.6 L, [place] % (Auto) 13.4 H, Eos % (Auto) 2.2, Baso % (Auto) 0.4, Absolute Neuts (auto) 5.3, Absolute Lymphs (auto) 0.86, Nucleated RBC % 0 02/14/23 06:54: Sodium 139, Potassium 3.9, Chloride 108 H, Carbon Dioxide 28.0, Anion Gap 3 L, BUN 20 H, Creatinine 0.93, Estim Creat Clear Calc 68.44, Est GFR (MDRD) Af Amer 102, Est GFR (MDRD) Non-Af 84, BUN/Creatinine Ratio 21.4 H, Glucose 93, Calcium 9.3, Total Bilirubin 0.30, AST 18, ALT 22, Alkaline Phosphatase 100, Total Protein 6.8, Albumin 3.0 L, Globulin 3.8, Albumin/Globulin Ratio 0.8 L D/C Instructions Discharge Diet: Low fat / Low cholesterol Call your doctor if you observe: Fever of 101 or Higher, Shortness of breath, Dizziness, Fainting spells, Swelling in the ankles, Chest pain and Increased palpitations (irregular heartbeat) Meaningful Use Info Meaningful Use Diagnoses (Choose all that apply): None applicable Discharge Plan Admission Admit Date/Time: 02/10/23 10:15 Attending Provider: Leonid Marie Primary Care Provider: Graciela Ashley Consulting Providers: Arsh Hunter Discharge Orders/Prescriptions Prescriptions: Continued metoprolol tartrate 100 mg tablet 100 mg PO BID duloxetine 60 mg capsule,delayed release(DR/EC) 60 cap PO DAILY atorvastatin 40 mg tablet 40 tab PO DAILY Label Comments: 1 tablet by mouth as directed aripiprazole 5 mg Tablet 5 mg PO DAILY thiamine HCl (vitamin B1) [Vitamin B-1] 100 mg Tablet 100 mg PO DAILYCM Qty: 30 2RF folic acid 1 mg Tablet 1 mg PO BREAKFAST Qty: 30 2RF amlodipine 5 mg tablet 5 mg PO DAILY Referrals / Follow Up: Graciela Ashley DO [Primary Care Provider] - Within 1 Week Disposition Disposition (needs filled in before D/C Order can be placed): Home, Self Care Charges/Coding Visit Charges Inpatient E&M: 64308 Disch Hosp >30min
--- NOTE | 2023-02-16 09:43 | CASEMGMT ---
Social Work Late entry for 02/11/23: WALT placed call to APS workerSilvano to collaborate on a time for a care team meeting. Silvano stated Tuesday 02/13 would work with schedule. WALT also spoke with MD Hunter about possibility of completing the Statement of Expert Evaluation to begin the court appointed guardian process started. MD Hunter reviewed options, after contemplating and looking at all pt's previous admissions MD felt this was something that would be beneficial to do for pt. WALT and worked together to include all pt's previous admission dates and SW guide MD in what areas of the form need completed. WALT, and airways operations specialist Akila all discussed ongoing options for pt treatment in regards to Etoh use. Explored options for medically prescribed and monitored alcohol consumption. It was determined this was something pt's PCP would need to consider as [facility] MD's would not be able to follow up with pt on this. AGUILAR MAGALLANES attempted to call pt's PCP to discuss. WALT emailed all other parties involved in pt case to update and collaborate on next steps for pt case. SWs on MS3 to follow and work on are team meeting. PRISCILLA Christian
== END 2023-02-14 11:45 | disposition home or self-care (01) | DRG 897 ==
LOC: ED 10:22 → MS3 10:49
PROVIDERS: Admitting Provider Internal Medicine; Emergency Provider Emergency Medicine; PCP Family Medicine; Visit Provider Family Medicine
DX: F10.239 Alcohol dependence with withdrawal, unspecified (principal); I42.9 Cardiomyopathy, unspecified; K70.9 Alcoholic liver disease, unspecified; I48.0 Paroxysmal atrial fibrillation; K74.60 Unspecified cirrhosis of liver; F41.8 Other specified anxiety disorders; I10 Essential (primary) hypertension; E78.5 Hyperlipidemia, unspecified; K76.0 Fatty (change of) liver, not elsewhere classified; R16.0 Hepatomegaly, not elsewhere classified; Z82.3 Family history of stroke; Z66 Do not resuscitate; Z51.5 Encounter for palliative care; Z87.891 Personal history of nicotine dependence; F32.A Depression, unspecified; Y90.9 Presence of alcohol in blood, level not specified
CPT/HCPCS: 76705; 80053; 80307; 82077; 82977; 85025; 85610; 93005; 97802; 99285; J7030; J7120; A4216; J2405

== ENCOUNTER 2023-03-09 22:14 | Inpatient (IN) | payer MEDICARE, MEDICAID, SELFPAY ==
[2023-03-09 22:15] VITALS: BP 158/103; PULSE 102; RESP 18; TEMP 36.1; O2SAT 95
[2023-03-10] VITALS (11 sets, daily range): BP systolic 106–147; BP diastolic 76–95; PULSE 79–115; RESP 14–24; TEMP 36.4–37.1; O2SAT 93–96; BMI 35.1; BMI 34.9
[2023-03-10 01:13] LABS: Absolute Lymphocyte Count 1.56 X10^3/uL (0.83-4.51); Absolute Neutrophil Count 5.8 X10^3/uL (2.0-7.7); Basophil# 0.06 X10^3/uL; Basophil% 0.7 % (0-1); Eosinophil# 0.12 X10^3/uL; Eosinophils% 1.4 % (0-5); Hematocrit 44.6 % (40-54); Hemoglobin 15.5 g/dL (13.0-16.5); Lymphocyte # 1.56 X10^3/ul (0.83-4.51); Lymphocyte % 18.8 % (19-41); Mean Corp Hgb Conc 34.8 g/dL (32-36); Mean Corpuscular Hgb 33.8 pg (27.0-32.0); Mean Corpuscular Volume 97.4 fL (80-94); Mean Platelet Vol. 9.7 fl (6.2-12.0); Monocyte# 0.77 X10^3/uL; Monocyte% 9.3 % (0-10); NRBC Flagged by Analyzer 0 % (0-5); Neutrophil # 5.77 X10^3/uL (2.7-7.7); Neutrophil % 69.3 % (47-70); Platelet Count 307 K/mm3 (150-450); RBC Distribution Width SD 50.4 fl (35.1-43.9); Red Blood Count 4.58 M/mm3 (4.6-6.2); White Blood Count 8.3 K/mm3 (4.4-11.0)
[2023-03-10 01:27] LABS: Anion Gap 12 (5-15); BUN 9 mg/dL (7-18); BUN/Creat Ratio 10.6 RATIO (10-20); Calcium,Total 8.7 mg/dL (8.5-10.1); Chloride 106 mmol/L (98-107); Creatinine, Serum 0.85 mg/dL (0.70-1.30); EST Glomerular Filtration Rate 94 mL/min (>60); Est Glom Filt Rate - Afr Amer 114 mL/min (>60); Estimated Creatinine Clearance 74.88 ml/min; Glucose 107 mg/dL (74-106); Potassium 3.9 mmol/L (3.5-5.1); Sodium Level 139 mmol/L (136-145)
--- NOTE | 2023-03-10 01:49 | EX.ED.SAOD ---
HPI History of Present Illness Chief Complaint: Nausea/Vomiting Informant: patient Narrative Narrative: Patient presents requesting detox from alcohol. He states he is an alcoholic, he is unsure if he has been diagnosed with cirrhosis or not, but he was in a detox program in [place] for 10 days recently, as soon as he got out he restarted drinking and he has been doing that for the last week. He wants to stop. He last drank 16-20 hours ago this past a.m., and he is experiencing withdrawal symptoms right now including nausea, anxiety, and having shakiness. Denies any seizures. No recent fevers, chills, other illness. Denies any melena, bright red blood per rectum. [facility] Medical History Acute alcoholic gastritis without hemorrhage Alcohol abuse Alcohol abuse Alcohol dependence Alcohol dependence Alcohol withdrawal Alcoholic cardiomyopathy Alcoholism Anxiety Anxiety Atrial fibrillation, chronic Atrial flutter, paroxysmal Chronic atrial fibrillation Depression with anxiety Desire for detoxification History of acute alcoholic hepatitis History of alcoholism HTN (hypertension) Left atrial enlargement Overweight Panic disorder Home Medications metoprolol tartrate 100 mg tablet 100 mg PO BID bp 10/03/19 [History Last Taken 11/06/22] atorvastatin 40 mg tablet 40 tab PO DAILY cholesterol 05/08/22 [History Last Taken 11/06/22] duloxetine 60 mg capsule,delayed release 60 cap PO DAILY mood 05/08/22 [History Last Taken Unknown] aripiprazole 5 mg tablet 5 mg PO DAILY mood 05/26/22 [History Last Taken 11/05/22] folic acid 1 mg tablet 1 mg PO BREAKFAST #30 tabs 11/13/22 [Rx Last Taken Unknown] thiamine HCl (vitamin B1) 100 mg tablet (Vitamin B-1) 100 mg PO DAILYCM #30 tabs 11/13/22 [Rx Last Taken Unknown] amlodipine 5 mg tablet 5 mg PO DAILY BP 12/15/22 [History Last Taken Unknown] Allergy/AdvReac Type Severity Reaction Status Date / Time No Known Allergies Allergy Verified 02/10/23 08:57 Family History Mother CVA (cerebral vascular accident) Father Cancer lung cancer Surgical History Hx of cholecystectomy Social History household members: none housing: apartment Smoking Status: Former smoker alcohol intake: current alcohol intake frequency: 3 or more drinks per day details: 24 12 ounce beers daily substance use type: does not use ROS ROS ED Constitutional Constitutional ED: Reports malaise; Denies chills or fever(s) Eyes Eyes: Denies change in vision or diplopia ENT ENT ED: Denies rhinorrhea or sore throat Cardiovascular Cardiovascular: Denies chest pain or palpitations Respiratory/Chest Respiratory/Chest: Denies cough or dyspnea Gastrointestinal Gastrointestinal: Reports nausea; Denies abdominal pain, diarrhea or vomiting Genitourinary Genitourinary ED: Denies dysuria or hematuria Musculoskeletal Musculoskeletal: Denies back pain or neck pain Integumentary Denies abscess or rash Neurologic Neurologic: Denies headache(s), paresthesias or weakness Psychiatric Psychiatric: Reports anxiety; Denies suicidal thoughts EXAM Physical Exam Const Vital Signs: 03/09/23 22:15 Temperature 97.0 F L Temperature Source Temporal Pulse Rate 102 H Respiratory Rate 18 Blood Pressure 158/103 H Blood Pressure Mean 121 Pulse Ox 95 Oxygen Delivery Method Room Air Positive well nourished and well developed General Appearance ED: well developed and NAD HEENT Reports moist mucous membranes normocephalic and atraumatic Eyes PERRL and EOMs intact bilaterally General Eye ED: Negative for scleral icterus Neck full ROM and supple Resp normal respiratory effort and clear to auscultation bilaterally Cardio regular rate, regular rhythm and no murmurs GI non-tender and non-distended Auscultation: normoactive bowel sounds Palpation: soft Back/Spine no CVA tenderness General Back: other FROM Extremity normal to inspection General Extremety ED: Negative for edema, pulses abnormal or tenderness General Extremity: Negative for edema or pulses abnormal Neuro oriented x3, CN's II-XII intact bilaterally and no sensory deficits noted Sensorium / Orientation: awake and alert Motor Exam: strength 5/5 throughout Psych mental status grossly normal and thought process normal Skin no wounds Skin Narrative: Small patches of nontender erythematous petechia versus macula on both forearms, 1 on each. No other petechiae, bullae, rashes. General Skin Exam: Negative for jaundice MDM MDM MDM Narrative Medical decision making narrative: Treated patient's withdrawal symptoms in addition to Zofran for his nausea. Work-up shows a normal INR and liver enzymes, arguing against cirrhosis. He is not jaundiced. His other counts are unremarkable except for his alcohol level of in the 180s, he does appear to have some withdrawal symptoms. He is stable and had no seizures in the ER, discussed with hospitalist for admission for detox. Lab Data Attestation: I reviewed the patient's lab results. Labs: Laboratory Results - last 24 hr 03/10/23 03/10/23 03/10/23 01:00 01:00 01:00 WBC 8.3 RBC 4.58 L Hgb 15.5 Hct 44.6 MCV 97.4 H MCH 33.8 H MCHC 34.8 RDW Std Deviation 50.4 H RDW Coeff of Pati 14.0 Plt Count 307 MPV 9.7 Immature Gran % (Auto) 0.500 Neut % (Auto) 69.3 Lymph % (Auto) 18.8 L [place] % (Auto) 9.3 Eos % (Auto) 1.4 Baso % (Auto) 0.7 Absolute Neuts (auto) 5.8 Absolute Lymphs (auto) 1.56 Nucleated RBC % 0 PT INR Sodium 139 Potassium 3.9 Chloride 106 Carbon Dioxide 21.0 Anion Gap 12 BUN 9 Creatinine 0.85 Estim Creat Clear Calc 74.88 Est GFR (MDRD) Af Amer 114 Est GFR (MDRD) Non-Af 94 BUN/Creatinine Ratio 10.6 Glucose 107 H Calcium 8.7 Total Bilirubin Direct Bilirubin AST ALT Alkaline Phosphatase Total Protein Albumin Globulin Urine Opiates Screen Urine Methadone Screen Ur Barbiturates Screen Ur Phencyclidine Scrn Ur Amphetamines Screen MDMA (Ecstasy) Screen U Benzodiazepines Scrn Urine Cocaine Screen U Cannabinoids Screen Ur Drug Screen Comment Ethyl Alcohol 183.0 03/10/23 03/10/23 03/10/23 01:06 02:13 02:13 WBC RBC Hgb Hct MCV MCH MCHC RDW Std Deviation RDW Coeff of Pati Plt Count MPV Immature Gran % (Auto) Neut % (Auto) Lymph % (Auto) [place] % (Auto) Eos % (Auto) Baso % (Auto) Absolute Neuts (auto) Absolute Lymphs (auto) Nucleated RBC % PT 13.4 INR 1.0 Sodium Potassium Chloride Carbon Dioxide Anion Gap BUN Creatinine Estim Creat Clear Calc Est GFR (MDRD) Af Amer Est GFR (MDRD) Non-Af BUN/Creatinine Ratio Glucose Calcium Total Bilirubin 0.30 Direct Bilirubin 0.13 AST 42 H ALT 39 Alkaline Phosphatase 123 H Total Protein 7.4 Albumin 3.3 Globulin 4.1 Urine Opiates Screen NEGATIVE Urine Methadone Screen NEGATIVE Ur Barbiturates Screen POSITIVE H Ur Phencyclidine Scrn NEGATIVE Ur Amphetamines Screen NEGATIVE MDMA (Ecstasy) Screen NEGATIVE U Benzodiazepines Scrn NEGATIVE Urine Cocaine Screen NEGATIVE U Cannabinoids Screen NEGATIVE Ur Drug Screen Comment Ethyl Alcohol Management Discussion w/another healthcare provider: Hospitalist Discharge Plan Dx/Rx/DC Orders Clinical Impression: Alcohol dependence, Alcohol withdrawal Disposition Disposition: Acute Care Hospital [facility]
[2023-03-10] MEDS: Ondansetron 4 MG/2 ML Vial IV (02:08)
[2023-03-10] MEDS: LORazepam 2 MG/ML Syringe 1 MG IV (02:08)
[2023-03-10 02:10] LABS: AST(SGOT) 42 U/L (15-37); Alanine Aminotransfer ALT/SGPT 39 U/L (16-61); Albumin, Serum 3.3 g/dL (3.2-5.0); Alkaline Phosphatase 123 U/L (45-117); Bilirubin, Direct 0.13 mg/dL (0.00-0.30); Globulin 4.1 g/dL (2.2-4.2); Protein, Total 7.4 g/dL (6.4-8.2)
[2023-03-10 02:29] LABS: Prothrombin Time (Protime)PT. 13.4 SECONDS (11.7-14.9)
[2023-03-10 02:31] LABS: Amphetamine Urine VISTA NEGATIVE (<1000 ng/mL); Barbiturate Urine VISTA POSITIVE (< 200 ng/mL); Benzodiazepine Urine VISTA NEGATIVE (< 200 ng/mL); Cocaine Urine VISTA NEGATIVE (< 300 ng/mL); Ecstacy Urine VISTA NEGATIVE (< 500 ng/mL); Methadone Urine VISTA NEGATIVE (< 300 ng/mL); PCP Urine VISTA NEGATIVE (< 25 ng/mL); THC Urine VISTA NEGATIVE (< 50 ng/mL); Vista UDS pH Range 5
--- NOTE | 2023-03-10 03:13 | HP.PCM_ITS ---
HPI - General General Date of Admission: 03/10/23 Date of Service: 03/10/23 Chief Complaint: Alcohol withdrawal HPI Narrative LANIE DELONG, is a 72 M who presents to the emergency room requesting assistance with alcohol withdrawal. Patient was recently discharged from an alcohol withdrawal facility in [place] after a 10-day inpatient stay and when he went home he started drinking immediately. Patient states he last drank yesterday morning and is hoping that this time he will be able to comply with his sobriety after discharge. Patient denies any chest pain, shortness of breath, fever or chills, nausea vomiting or diarrhea. Patient is started to feel a bit anxious now that he is 24 hours since his last alcohol intake. He wi ll be admitted for the [facility] protocol. [facility] Medical History Acute alcoholic gastritis without hemorrhage Alcohol abuse Alcohol abuse Alcohol dependence Alcohol dependence Alcohol withdrawal Alcoholic cardiomyopathy Alcoholism Anxiety Anxiety Atrial fibrillation, chronic Atrial flutter, paroxysmal Chronic atrial fibrillation Depression with anxiety Desire for detoxification History of acute alcoholic hepatitis History of alcoholism HTN (hypertension) Left atrial enlargement Overweight Panic disorder Home Medications metoprolol tartrate 100 mg tablet 100 mg PO BID bp 10/03/19 [History Last Taken 11/06/22] atorvastatin 40 mg tablet 40 tab PO DAILY cholesterol 05/08/22 [History Last Taken 11/06/22] duloxetine 60 mg capsule,delayed release 60 cap PO DAILY mood 05/08/22 [History Last Taken Unknown] aripiprazole 5 mg tablet 5 mg PO DAILY mood 05/26/22 [History Last Taken 11/05/22] folic acid 1 mg tablet 1 mg PO BREAKFAST #30 tabs 11/13/22 [Rx Last Taken Unknown] thiamine HCl (vitamin B1) 100 mg tablet (Vitamin B-1) 100 mg PO DAILYCM #30 tabs 11/13/22 [Rx Last Taken Unknown] amlodipine 5 mg tablet 5 mg PO DAILY BP 12/15/22 [History Last Taken Unknown] Allergy/AdvReac Type Severity Reaction Status Date / Time No Known Allergies Allergy Verified 02/10/23 08:57 Family History Mother CVA (cerebral vascular accident) Father Cancer lung cancer Surgical History Hx of cholecystectomy Social History household members: none housing: apartment Smoking Status: Former smoker alcohol intake: current alcohol intake frequency: 3 or more drinks per day details: 24 12 ounce beers daily substance use type: does not use ROS Constitutional Constitutional: Denies change in weight, chills or fever(s) Eyes Eyes: Denies change in vision ENT HEENT: Denies abnormal hearing Cardiovascular Cardiovascular: Denies chest pain Respiratory/Chest Respiratory/Chest: Denies cough Gastrointestinal Gastrointestinal: Denies abdominal pain, nausea or vomiting Genitourinary Genitourinary: Denies dysuria Musculoskeletal Musculoskeletal: Denies back pain Integumentary Integumentary: Denies jaundice Neurologic Neurologic: Denies abnormal gait Psychiatric Psychiatric: Reports anxiety Vital Signs Vital Signs Vital Signs: 03/09/23 22:15 Temperature 97.0 F L Temperature Source Temporal Pulse Rate 102 H Respiratory Rate 18 Blood Pressure 158/103 H Blood Pressure Mean 121 Pulse Ox 95 Oxygen Delivery Method Room Air Weight Weight: 231 lb 0.711 oz Body Mass Index (BMI) 35.1 Physical Exam Const oriented x3 General Appearance: cooperative HEENT normocephalic and head/scalp atraumatic Eyes PERRL and EOMs intact bilaterally Neck no lymphadenopathy Lymph Lymphatic: no lymphadenopathy noted Resp normal respiratory effort, normal air movement and clear to auscultation bilaterally Cardio regular rate, regular rhythm, S1 normal heart sound and S2 normal heart sound GI normal to inspection, nondistended, normoactive bowel sounds Extremity no clubbing, cyanosis or edema Skin General Skin Exam: no breakdown Neuro no focal motor deficits and no sensory deficits noted Psych Mood & Affect: anxious Results Lab / Micro Data Result Diagrams: 03/10/23 01:00 03/10/23 01:00 Labs: Laboratory Results - last 24 hr 03/10/23 01:00: WBC 8.3, RBC 4.58 L, Hgb 15.5, Hct 44.6, MCV 97.4 H, MCH 33.8 H, MCHC 34.8, RDW Std Deviation 50.4 H, RDW Coeff of Pati 14.0, Plt Count 307, MPV 9.7, Immature Gran % (Auto) 0.500, Neut % (Auto) 69.3, Lymph % (Auto) 18.8 L, [place] % (Auto) 9.3, Eos % (Auto) 1.4, Baso % (Auto) 0.7, Absolute Neuts (auto) 5.8, Absolute Lymphs (auto) 1.56, Nucleated RBC % 0 03/10/23 01:00: Sodium 139, Potassium 3.9, Chloride 106, Carbon Dioxide 21.0, Anion Gap 12, BUN 9, Creatinine 0.85, Estim Creat Clear Calc 74.88, Est GFR (MDRD) Af Amer 114, Est GFR (MDRD) Non-Af 94, BUN/Creatinine Ratio 10.6, Glucose 107 H, Calcium 8.7 03/10/23 01:00: Ethyl Alcohol 183.0 03/10/23 01:06: Total Bilirubin 0.30, Direct Bilirubin 0.13, AST 42 H, ALT 39, Alkaline Phosphatase 123 H, Total Protein 7.4, Albumin 3.3, Globulin 4.1 03/10/23 02:13: Urine Opiates Screen NEGATIVE, Urine Methadone Screen NEGATIVE, Ur Barbiturates Screen POSITIVE H, Ur Phencyclidine Scrn NEGATIVE, Ur Amphetamines Screen NEGATIVE, MDMA (Ecstasy) Screen NEGATIVE, U Benzodiazepines Scrn NEGATIVE, Urine Cocaine Screen NEGATIVE, U Cannabinoids Screen NEGATIVE, Ur Drug Screen Comment 03/10/23 02:13: PT 13.4, INR 1.0 Assessment & Plan Assessment/Plan (1) Alcohol dependence: (2) Alcohol withdrawal: (3) History of hypertension: PLAN: Plan 1 alcohol dependence/alcohol withdrawal?admit patient to medical surgical floor, start [facility] protocol, consult case management for post discharge planning for alcohol sobriety 2. Hypertension?continue routine home medications for hypertension 3. DVT prophylaxis?SCDs if patient is not ambulatory Charges/Coding Visit Charges Inpatient E&M: 28084 Init Hosp L2
[2023-03-10] MEDS: Ondansetron 8 MG Tablet PO (06:07)
[2023-03-10] MEDS: LORazepam 1 MG Tablet 2 MG PO ×5 (06:28→21:35)
[2023-03-10] MEDS: Metoprolol Tartrate 100 MG Tablet PO ×2 (06:28→21:35)
[2023-03-10] MEDS: hydrOXYzine PAM 25 MG Capsule 50 MG PO ×2 (06:28→17:41)
[2023-03-10] MEDS: Folic Acid 1 MG Tablet PO (07:37)
[2023-03-10] MEDS: Thiamine Hydrochloride 100 MG Tablet PO (07:37)
[2023-03-10] MEDS: DULoxetine Hcl 60 MG Capsule PO (07:37)
[2023-03-10] MEDS: ARIPiprazole 5 MG Tablet PO (07:37)
[2023-03-10] MEDS: amLODIPine 5 MG Tablet PO (07:37)
--- NOTE | 2023-03-10 13:52 | CASEMGMT ---
Addendum entered by Celia Harry 03/10/23 16:09: Akila eviction specialist called back. Reports when met with pt that pt was unwell and struggled to maintain conversation. Akila had planned to follow up with pt tomorrow on potential for returning to residential treatment. WALT and eviction specialist will discuss further plans tomorrow. Will work in collaboration with pt if pt presents oriented and able to make decisions. Addendum entered by Celia Harry 03/10/23 15:41: Silvano from [facility] called back. Silvano stated nothing that can be done from APS end at this point while pt is at [facility]. Silvano recommended pt brother perusing [employer] through the court. WALT also spoke to Press Shop Supervisor, Era. Era recommended calling [facility] eviction specialist, Akila, to discuss what pt had discussed during their visit today. WALT called Akila, received VM. Left message requesting Akila call back with details. Original Note: Social Work WALT called Silvano at [facility] to report pt has been admitted to [facility] again. Silvano did not answer, WALT left VM to update that pt recently went to detox and inpatient residential treatment program but only completed the detox part and then went home. WALT left contact number for Silvano to call back. PRISCILLA Christian
--- NOTE | 2023-03-10 15:50 | PCM.HOSP.N ---
Hospitalist Note Patient was seen and examined today, I had a brief discussion with him concerning his multiple admissions for alcohol detox here, it appears that the patient went to an inpatient detox facility when he was discharged from the hospital here but only spent 10 days there and then went back to drinking immediately when he got home. I talked at length with addiction administrator social welfare about the patient, I expressed frustration that the patient does not seem genuine in his desire to stop drinking. This examiner strongly suspects patient may have a psychiatric issue. For now, patient will remain on his present medications, he will be monitored for alcohol withdrawal symptoms.
[2023-03-10] MEDS: Atorvastatin Calcium 40 MG Tablet PO (21:35)
[2023-03-11] VITALS (8 sets, daily range): BP systolic 130–156; BP diastolic 84–101; PULSE 91–108; RESP 16–28; TEMP 36.4–36.9; O2SAT 94–99
[2023-03-11] MEDS: LORazepam 1 MG Tablet 2 MG PO (04:35)
[2023-03-11] MEDS: Menthol/Lanolin/Calamine/Znox 113 GM Tube 1 APPLIC TOPICAL ×3 (04:41→21:17)
[2023-03-11] MEDS: amLODIPine 5 MG Tablet PO (07:57)
[2023-03-11] MEDS: Metoprolol Tartrate 100 MG Tablet PO ×2 (07:57→21:16)
[2023-03-11] MEDS: DULoxetine Hcl 60 MG Capsule PO (07:58)
[2023-03-11] MEDS: Thiamine Hydrochloride 100 MG Tablet PO (07:58)
[2023-03-11] MEDS: Folic Acid 1 MG Tablet PO (07:58)
[2023-03-11] MEDS: ARIPiprazole 5 MG Tablet PO (07:58)
--- NOTE | 2023-03-11 08:15 | PN.HOSP_ITS ---
Reason for Visit Reason for Visit: Diagnoses Alcohol dependence, uncomplicated (03/10/23) Alcohol use, unspecified with withdrawal, unspecified (03/10/23) Personal history of other diseases of the circulatory system (03/10/23) Subjective Subjective Patient was seen and examined today, he is alert he is oriented as to person and place and time. Patient did not appear anxious or nervous. Objective Data Objective Data Vital Signs: Vital Signs Temp Pulse Resp BP Pulse Ox O2 Del Method 97.9 F 96 16 144/90 H 96 Room Air 03/11/23 03:15 03/11/23 07:57 03/11/23 03:15 03/11/23 03:15 03/11/23 03:15 03/11/23 03:15 Oxygen Delivery Method Room Air Weight: 104.054 kg Body Mass Index (BMI) 34.9 Intake & Output: Intake and Output for Last 24 Hours 03/09/23 03/10/23 03/11/23 23:59 23:59 23:59 Intake Total 1150 / 1150 200 / 200 Output Total 200 / 200 Balance 950 / 950 200 / 200 Lab / Micro Data Result Diagrams: 03/10/23 01:00 03/10/23 01:00 Physical Exam Const alert, oriented x3 and no apparent distress Constitutional Narrative: Patient appears older than stated age General Appearance: cooperative and well developed Orientation / Consciousness: awake, oriented to person, oriented to place and oriented to time HEENT normocephalic, head/scalp atraumatic and moist oral mucous membranes Eyes PERRL, EOMs intact bilaterally and conjunctivae normal Neck supple, no JVD, thyroid normal and no carotid bruits General: trachea midline Resp normal respiratory effort, no retractions, no use of accessory muscles and clear to auscultation bilaterally Auscultation: Negative for rales, rhonchi or wheezes Cardio regular rate, regular rhythm, S1 normal heart sound, S2 normal heart sound, no m urmurs, no rub and no gallops GI normal to inspection, nondistended, normoactive bowel sounds, soft to palpation, non-tender and non-distended Extremity no clubbing, cyanosis or edema Skin no rashes or lesions noted General Skin Exam: no breakdown Neuro oriented x3, CN's II-XII intact bilaterally, moves all extremities, no focal motor deficits and no sensory deficits noted Sensorium / Orientation: awake, alert, oriented to person, oriented to place and oriented to time Speech: speech normal Psych Psych Narrative: Patient is alert, he appears somewhat somnolent Assessment & Plan Assessment/Plan (1) Alcohol withdrawal: PLAN: Plan 1. Acute alcohol withdrawal-patient is minimally symptomatic at this time, I will review his phenobarbital dosage and I might decide to de-escalate the phenobarbital. #2 hyperlipidemia-patient is on atorvastatin #3 chronic depression-patient is on Abilify and Cymbalta #4 essential hypertension-patient is on metoprolol and amlodipine #5 chronic alcoholism-complicates care, medical course, recovery, and prognosis Total clinical time spent by myself addressing the patient's medical issues, reviewing all the data, and collaborating with the patient's care team: 35 minutes Charges/Coding Visit Charges Inpatient E&M: 42068 Subs Hosp L2
[2023-03-11] MEDS: Ondansetron 8 MG Tablet PO (10:28)
--- NOTE | 2023-03-11 10:37 | ADDICTION ---
This worker met with patient on 03/10 and 03/11. Completed all assessments. As of 03/10 pt reported that he completed detox at [facility] in [place] but got homesick and did not do the residential treatment. Pt reported that he was feeling unwell and was struggling to keep his eyes open. TW was able to complete assessments however pt was undecided about residential treatment. Upon speaking with him today he reported that he felt queasy and struggling. Client is currently confused as evidence by not knowing date/time, and location. Will attempt to discuss treatment again tomorrow.
[2023-03-11] MEDS: hydrOXYzine PAM 25 MG Capsule 50 MG PO ×2 (10:58→21:16)
[2023-03-11] MEDS: Gabapentin 300 MG Capsule PO (10:58)
--- NOTE | 2023-03-11 11:00 | RAD_ITS ---
STUDY: X-RAY CHEST REASON FOR EXAM: Male, 72 years old. Dysphagia. TECHNIQUE: Single AP portable view of the chest. COMPARISON: Comparison is made with prior study done May 29, 2022. FINDINGS: There is elevation of the left hemidiaphragm. This is unchanged. Persistent blunting of the left posterior triangle with a mild degree of left basilar atelectasis and/or scarring. Normal size heart. Normal mediastinum and lorri. Normal visualized pulmonary arteries. There is atherosclerotic tortuosity of the aortic arch and descending thoracic aorta. There are degenerative changes of the visualized thoracic spine. Normal visualized ribs, clavicles, and shoulders. There is no demonstrated abnormality of the visualized soft tissue structures of the upper abdomen. RAD/Chest 1 View (Portable) IMPRESSION: Elevation of the left hemidiaphragm with blunting of the left costophrenic angle and mild increased linear markings at the left lung base. Electronically Signed: Brian Hernandez MD at 12:32 EDT ,
--- NOTE | 2023-03-11 11:01 | CASEMGMT ---
Social Work SW conferred with administrative support specialist, Akila. Akila reports pt still confused, unable to plan discharge with pt at this time. SW updated that statement of expert evaluation from pt's previous admission may still be on file, if it is still usable. If not, MD Gardner may be willing to complete a new form. Akila will attempt meeting with pt again tomorrow as pt meds have been changed today and is hopefully that pt will be more clear. PRISCILLA Christian
[2023-03-11] MEDS: Phenobarbital 32.4 MG Tablet 64.8 MG PO ×2 (12:14→21:16)
[2023-03-11] MEDS: Atorvastatin Calcium 40 MG Tablet PO (21:16)
[2023-03-12] VITALS (11 sets, daily range): BP systolic 128–162; BP diastolic 73–116; PULSE 80–104; RESP 15–24; TEMP 36.3–36.6; O2SAT 97–98
[2023-03-12] MEDS: hydrOXYzine PAM 25 MG Capsule 50 MG PO ×2 (01:38→06:29)
[2023-03-12] MEDS: 0.9% Saline Lock 10 ML Syringe IV (01:38)
[2023-03-12] MEDS: Gabapentin 300 MG Capsule PO ×2 (01:38→20:46)
[2023-03-12] MEDS: Phenobarbital 32.4 MG Tablet 64.8 MG PO ×3 (06:28→20:46)
[2023-03-12] MEDS: ARIPiprazole 5 MG Tablet PO (07:25)
[2023-03-12] MEDS: DULoxetine Hcl 60 MG Capsule PO (07:25)
[2023-03-12] MEDS: amLODIPine 5 MG Tablet PO (07:25)
[2023-03-12] MEDS: Metoprolol Tartrate 100 MG Tablet PO ×2 (07:25→20:46)
[2023-03-12] MEDS: Menthol/Lanolin/Calamine/Znox 113 GM Tube 1 APPLIC TOPICAL ×2 (07:26→20:46)
[2023-03-12] MEDS: Thiamine Hydrochloride 100 MG Tablet PO (07:26)
[2023-03-12] MEDS: Folic Acid 1 MG Tablet PO (07:26)
[2023-03-12] MEDS: Ipratropium/Albuterol Sulfate 3 ML AMPUL.NEB INHALATION ×3 (07:33→20:10)
--- NOTE | 2023-03-12 10:58 | CASEMGMT ---
Social Work SW received referral from Akila, addiction therapist, that pt is agreeable to SNF placement. SW met with pt and introduced self. Pt sitting in chair alert and agreeable to talk. When asked how he is pt states, I feel good physically but lousy emotionally. When asked to expand pt is able to state that he is frustrated with his alcohol rehab because he has heard the same this for the past 40 years but does not want a sponsor or to do what they say. SW inquired about discussion regarding SNF placement. Pt is able to state that he needs to go to a senior living where he has some freedom to move around but where they will not let him have alcohol. A list of SNF providers including quality and resource use data and consistent with the patient?s preferred geographic region, medical needs, and insurance network were provided from the [employer]. SW reviewed list with pt and pt prefers [facility]. liliana Vazquez assistant professor of marine biology, updated and will send referral. Plan: [facility], pending acceptance and PRISCILLA Kearns
--- NOTE | 2023-03-12 11:06 | CASEMGMT ---
Discharge Planning Referral sent to [place] via [facility]. Taylor Yost
--- NOTE | 2023-03-12 12:25 | PCM.PN.HOSP ---
Reason for Visit Reason for Visit: Diagnoses Alcohol dependence, uncomplicated (03/10/23) Alcohol use, unspecified with withdrawal, unspecified (03/10/23) Personal history of other diseases of the circulatory system (03/10/23) Subjective Subjective Was seen and examined today, he is more alert than yesterday and less confused. He states he would consent to go to an extended care facility for rehab services. He would prefer [facility]. Objective Data Objective Data Vital Signs: Vital Signs Temp Pulse Resp BP Pulse Ox O2 Del Method 97.7 F L 81 16 128/73 H 97 Room Air 03/12/23 11:18 03/12/23 11:18 03/12/23 11:18 03/12/23 11:18 03/12/23 11:18 03/12/23 11:18 Oxygen Delivery Method Room Air Weight: 104.054 kg Body Mass Index (BMI) 34.9 Intake & Output: Intake and Output for Last 24 Hours 03/10/23 03/11/23 03/12/23 23:59 23:59 23:59 Intake Total 1150 / 1150 750 / 750 250 / 250 Output Total 200 / 200 Balance 950 / 950 750 / 750 250 / 250 Lab / Micro Data Result Diagrams: 03/10/23 01:00 03/10/23 01:00 Radiography Diagnostic Testing: Radiology Impression Chest X-Ray 03/11/23 11:00 IMPRESSION: Elevation of the left hemidiaphragm with blunting of the left costophrenic angle and mild increased linear markings at the left lung base. Electronically Signed: Brian Hernandez MD at 12:32 EDT , Physical Exam Const alert and no apparent distress Constitutional Narrative: Patient is alert and oriented as to self and place General Appearance: cooperative, well kempt and well developed Orientation / Consciousness: awake, oriented to person and oriented to place HEENT normocephalic, head/scalp atraumatic and moist oral mucous membranes Eyes PERRL, EOMs intact bilaterally and conjunctivae normal Neck supple, no JVD, thyroid normal and no carotid bruits General: trachea midline Resp normal respiratory effort, no retractions, no use of accessory muscles and clear to auscultation bilaterally Auscultation: Negative for rales, rhonchi or wheezes Cardio regular rate, regular rhythm, S1 normal heart sound, S2 normal heart sound, no murmurs, no rub and no gallops GI normal to inspection, nondistended, normoactive bowel sounds, soft to palpation, non-tender and non-distended Extremity normal to inspection and no clubbing, cyanosis or edema Skin no rashes or lesions noted General Skin Exam: no breakdown Neuro oriented x3, CN's II-XII intact bilaterally, moves all extremities, no focal motor deficits and no sensory deficits noted Sensorium / Orientation: awake and alert Speech: speech normal Psych affect normal Assessment & Plan Assessment/Plan (1) Alcohol withdrawal: PLAN: Plan 1. Acute alcohol withdrawal-patient is minimally symptomatic at this time, he will continue on his phenobarbital #2 hyperlipidemia-patient is on atorvastatin #3 chronic depression-patient is on Abilify and Cymbalta #4 essential hypertension-patient is on metoprolol and amlodipine #5 chronic alcoholism-complicates care, medical course, recovery, and prognosis Total clinical time spent by myself addressing the patient's medical issues, reviewing all the data, and collaborating with the patient's care team: 25 minutes Charges/Coding Visit Charges Inpatient E&M: 87407 [facility] Hosp L1
--- NOTE | 2023-03-12 12:53 | CASEMGMT ---
Discharge Planning Message sent to [facility] via [facility] that patient will come [facility] and not skilled. Taylor Yost
--- NOTE | 2023-03-12 13:52 | CASEMGMT ---
Social work Email sent to Rajani Gan at [facility] to confirm pts medicaid eligibility for SNF placement. SW will await response. PRISCILLA Yin
[2023-03-12] MEDS: Atorvastatin Calcium 40 MG Tablet PO (20:46)
[2023-03-12] MEDS: traZODone 100 MG Tablet PO (20:46)
[2023-03-13] VITALS (7 sets, daily range): BP systolic 129–152; BP diastolic 70–100; PULSE 76–88; RESP 18; TEMP 36.5–37.1; O2SAT 97–100
[2023-03-13] MEDS: Phenobarbital 32.4 MG Tablet 64.8 MG PO ×2 (05:16→14:27)
[2023-03-13] MEDS: Thiamine Hydrochloride 100 MG Tablet PO (08:32)
[2023-03-13] MEDS: Folic Acid 1 MG Tablet PO (08:32)
--- NOTE | 2023-03-13 10:00 | CASEMGMT ---
Discharge Planning PT/OT evals sent to [place] via [facility]. Patient has not been accepted yet. Taylor Yost
[2023-03-13] MEDS: Menthol/Lanolin/Calamine/Znox 113 GM Tube 1 APPLIC TOPICAL ×2 (10:58→20:41)
[2023-03-13] MEDS: DULoxetine Hcl 60 MG Capsule PO (10:58)
[2023-03-13] MEDS: ARIPiprazole 5 MG Tablet PO (10:58)
[2023-03-13] MEDS: amLODIPine 5 MG Tablet PO (10:58)
[2023-03-13] MEDS: Metoprolol Tartrate 100 MG Tablet PO ×2 (10:58→20:42)
--- NOTE | 2023-03-13 14:38 | PCM.TXEXTCAR ---
Diet Diet Order/Speech Therapy: 03/10/23 05:30 Diet: Regular - General Food consistency:: Regular Liquid Consistency:: Regular/Thin Routine Orders/Code Status Code Status: Full Code Wound(s) bilat forearms: Wound Type: scratches Therapies Weight Bearing: Full weight bearing Physical Therapy: Eval and Treat Occupational Therapy: Eval and Treat Problem/Diagnosis (1) Alcohol withdrawal: Status: Acute Code(s): F10.939 - Alcohol use, unspecified with withdrawal, unspecified Plan 1. Acute alcohol withdrawal #2 hyperlipidemia-patient is on atorvastatin #3 chronic depression-patient is on Abilify and Cymbalta #4 essential hypertension-patient is on metoprolol and amlodipine #5 chronic alcoholism-complicates care, medical course, recovery, and prognosis Total clinical time spent by myself addressing the patient's medical issues, reviewing all the data, and collaborating with the patient's care team: 25 minutes Allergies/Procedures Done in Hospital Allergies No Known Allergies Allergy (Verified 02/10/23 08:57) Procedures: None Type of Care/Length of Stay Estimated LOS: Convalescent Care Less Than 30 days Type of Care Needed: Intermediate Rehab Potential: Fair Prognosis: Fair Additional Orders/Day of Discharge H&P will serve as current which was dated: 03/10/23 Day of Discharge: 03/13/23 Discharge Plan Admission Admit Date/Time: 03/10/23 03:16 Primary Reason for Your Visit: alcohol detox Attending Provider: Jorge Gardner Primary Care Provider: Graciela Ashley Consulting Providers: Mike Weeks Discharge Orders/Prescriptions Prescriptions: New phenobarbital 32.4 mg tablet 32.4 mg PO BID Qty: 8 0RF Rx Instructions: one twice a day for 4 days, then discontinue Continued metoprolol tartrate 100 mg tablet 100 mg PO BID duloxetine 60 mg capsule,delayed release(DR/EC) 60 cap PO DAILY atorvastatin 40 mg tablet 40 tab PO DAILY Label Comments: 1 tablet by mouth as directed aripiprazole 5 mg Tablet 5 mg PO DAILY thiamine HCl (vitamin B1) [Vitamin B-1] 100 mg Tablet 100 mg PO DAILYCM Qty: 30 2RF folic acid 1 mg Tablet 1 mg PO BREAKFAST Qty: 30 2RF amlodipine 5 mg tablet 5 mg PO DAILY Referrals / Follow Up: Graciela Ashley, DO [Primary Care Provider] - Disposition Disposition (needs filled in before D/C Order can be placed): [facility]
--- NOTE | 2023-03-13 14:48 | DS.PCM_ITS ---
Providers Date of Admission: 03/10/23 Date of Discharge: 03/13/23 Primary Care Physician: Graciela Ashley DO Reason For Visit: ALCOHOL WITHDRAWL Diagnosis Discharge Diagnosis (1) Alcohol withdrawal: Status: Acute Code(s): F10.939 - Alcohol use, unspecified with withdrawal, unspecified Plan 1. Acute alcohol withdrawal #2 hyperlipidemia-patient is on atorvastatin #3 chronic depression-patient is on Abilify and Cymbalta #4 essential hypertension-patient is on metoprolol and amlodipine #5 chronic alcoholism-complicates care, medical course, recovery, and prognosis Total clinical time spent by myself addressing the patient's medical issues, reviewing all the data, and collaborating with the patient's care team: 25 minutes Medications at Discharge Home Medications metoprolol tartrate 100 mg tablet 100 mg PO BID bp 10/03/19 atorvastatin 40 mg tablet 40 tab PO DAILY cholesterol 05/08/22 duloxetine 60 mg capsule,delayed release 60 cap PO DAILY mood 05/08/22 aripiprazole 5 mg tablet 5 mg PO DAILY mood 05/26/22 folic acid 1 mg tablet 1 mg PO BREAKFAST #30 tabs 11/13/22 thiamine HCl (vitamin B1) 100 mg tablet (Vitamin B-1) 100 mg PO DAILYCM #30 tabs 11/13/22 amlodipine 5 mg tablet 5 mg PO DAILY BP 12/15/22 phenobarbital 32.4 mg tablet 32.4 mg PO BID #8 tabs 03/13/23 Weight / BMI Weight Weight: 104.054 kg Body Mass Index (BMI) 34.9 ABG / Lab / Microbiology Data Result Diagrams: 03/10/23 01:00 03/10/23 01:00 Discharge Plan Admission Admit Date/Time: 03/10/23 03:16 Primary Reason for Your Visit: alcohol detox Attending Provider: Jorge Gardner Primary Care Provider: Graciela Ashley Consulting Providers: Mike Weeks Discharge Orders/Prescriptions Prescriptions: New phenobarbital 32.4 mg tablet 32.4 mg PO BID Qty: 8 0RF Rx Instructions: one twice a day for 4 days, then discontinue Continued metoprolol tartrate 100 mg tablet 100 mg PO BID duloxetine 60 mg capsule,delayed release(DR/EC) 60 cap PO DAILY atorvastatin 40 mg tablet 40 tab PO DAILY Label Comments: 1 tablet by mouth as directed aripiprazole 5 mg Tablet 5 mg PO DAILY thiamine HCl (vitamin B1) [Vitamin B-1] 100 mg Tablet 100 mg PO DAILYCM Qty: 30 2RF folic acid 1 mg Tablet 1 mg PO BREAKFAST Qty: 30 2RF amlodipine 5 mg tablet 5 mg PO DAILY Referrals / Follow Up: Graciela Ashley DO [Primary Care Provider] - Disposition Disposition (needs filled in before D/C Order can be placed[facility]
--- NOTE | 2023-03-13 15:13 | CASEMGMT ---
Social Work SW placed call to [facility] and spoke with Rajani Gan who confirms pt has LTC coverage with Medicaid. SW spoke with Amanda at [facility] and they are able to accept pt. SW met with pt and pt continues to express desire to go to [facility]. SW submitted Level of Care for admission to SNF. LOC results will need to be returned prior to pt admission to [facility]. PRISCILLA Yin
--- NOTE | 2023-03-13 15:39 | CASEMGMT ---
Discharge Planning Discharge orders and signed med list sent to [place] via [facility]. Taylor Yost
--- NOTE | 2023-03-13 17:08 | CASEMGMT ---
Social Work Level of Care completed and returned from [facility]. Per physician pt is ready for discharge today. Pt updated and agreeable. Phone call to Amanda at [facility] [phone] and updated pt will be discharged this evening. Amanda states they cannot accept pt until precert from [facility] is obtained for skilled level of care. SW informed Amanda that pt will not meet skilled level of care as he has ambulated 350 feet and that previously informed [facility] that pt would becoming under intermediate care and a Medicaid Level of Care. Amanda states that her drywall application supervisor said that precert must be attempted and pt cannot admit until an acceptance or denial has been issued. Despite WALT attempts to explain that a level of care has been obtained for Medicaid payment and that this is the appropriate level of care for pt, [facility] declines to accept until determination from [employer]. [facility] phone number given to Amanda to call with determination. Physician Updated. Plan: [facility], intermediate level of care. When [facility] allows admission. PRISCILLA Yin
--- NOTE | 2023-03-13 18:23 | PCM.PN.HOSP ---
Reason for Visit Reason for Visit: Diagnoses Alcohol dependence, uncomplicated (03/10/23) Alcohol use, unspecified with withdrawal, unspecified (03/10/23) Personal history of other diseases of the circulatory system (03/10/23) Subjective Subjective Patient was seen and examined today, [facility], at the last minute, the [place] [facility] requested that his main insurance carrier be contacted to see if he would be eligible for skilled care. This has delayed his discharge from the hospital unfortunately, he will be reevaluated next week for transfer to the [place] [facility]. Patient appears more alert today, he does not appear to be anxious. Objective Data Objective Data Vital Signs: Vital Signs Temp Pulse Resp BP Pulse Ox O2 Del Method 98.2 F 88 18 144/70 H 100 Room Air 03/13/23 17:29 03/13/23 17:29 03/13/23 17:29 03/13/23 17:29 03/13/23 17:29 03/13/23 17:29 Oxygen Delivery Method Room Air Weight: 104.054 kg Body Mass Index (BMI) 34.9 Intake & Output: Intake and Output for Last 24 Hours 03/11/23 03/12/23 03/13/23 23:59 23:59 23:59 Intake Total 750 / 750 750 / 750 1600 / 1600 Balance 750 / 750 750 / 750 1600 / 1600 Lab / Micro Data Result Diagrams: 03/10/23 01:00 03/10/23 01:00 Micro: Microbiology 03/13/23 17:00 Nasal Secretion SARS-CoV-2 Antigen (Rapid) - Final Physical Exam Const alert and no apparent distress General Appearance: cooperative and well developed Orientation / Consciousness: awake, oriented to person and oriented to place HEENT normocephalic, head/scalp atraumatic and moist oral mucous membranes Eyes PERRL, EOMs intact bilaterally and conjunctivae normal Neck supple, no JVD, thyroid normal and no carotid bruits General: trachea midline Resp normal respiratory effort, no retractions, no use of accessory muscles and clear to auscultation bilaterally Auscultation: Negative for rales, rhonchi or wheezes Cardio regular rate, regular rhythm, S1 normal heart sound, S2 normal heart sound, no murmurs, no rub and no gallops GI normal to inspection, nondistended, normoactive bowel sounds, soft to palpation, non-tender and non-distended Extremity normal to inspection and no clubbing, cyanosis or edema Skin no rashes or lesions noted General Skin Exam: no breakdown Neuro CN's II-XII intact bilaterally, moves all extremities, no focal motor deficits and no sensory deficits noted Sensorium / Orientation: awake, alert, oriented to person and oriented to place Speech: speech normal Psych affect normal Assessment & Plan Assessment/Plan (1) Alcohol withdrawal: PLAN: Plan 1.? Acute alcohol withdrawal-patient is minimally symptomatic at this time, he will continue on his phenobarbital #2 hyperlipidemia-patient is on atorvastatin #3 chronic depression-patient is on Abilify and Cymbalta #4 essential hypertension-patient is on metoprolol and amlodipine #5 chronic alcoholism-complicates care, medical course, recovery, and prognosis Total clinical time spent by myself addressing the patient's medical issues, reviewing all the data, and collaborating with the patient's care team: 35 minutes Charges/Coding Visit Charges Inpatient E&M: 71111 Subs Hosp L2
[2023-03-13] MEDS: hydrOXYzine PAM 25 MG Capsule 50 MG PO (20:41)
[2023-03-13] MEDS: traZODone 100 MG Tablet PO (20:41)
[2023-03-13] MEDS: Phenobarbital 32.4 MG Tablet PO (20:41)
[2023-03-13] MEDS: Atorvastatin Calcium 40 MG Tablet PO (20:42)
[2023-03-14] VITALS (8 sets, daily range): BP systolic 128–149; BP diastolic 72–108; PULSE 72–97; RESP 14–18; TEMP 36.6–36.8; O2SAT 96–98
[2023-03-14] MEDS: Phenobarbital 32.4 MG Tablet PO ×3 (05:59→22:12)
[2023-03-14] MEDS: Metoprolol Tartrate 100 MG Tablet PO ×2 (08:30→22:12)
[2023-03-14] MEDS: Thiamine Hydrochloride 100 MG Tablet PO (08:31)
[2023-03-14] MEDS: Menthol/Lanolin/Calamine/Znox 113 GM Tube 1 APPLIC TOPICAL ×2 (08:32→22:15)
[2023-03-14] MEDS: ARIPiprazole 5 MG Tablet PO (08:32)
[2023-03-14] MEDS: Nystatin Powder 15gm Bottle 1 APPLIC TOPICAL ×2 (08:33→22:14)
[2023-03-14] MEDS: amLODIPine 5 MG Tablet PO (08:33)
[2023-03-14] MEDS: DULoxetine Hcl 60 MG Capsule PO (08:33)
[2023-03-14] MEDS: Folic Acid 1 MG Tablet PO (08:33)
[2023-03-14] MEDS: Ipratropium/Albuterol Sulfate 3 ML AMPUL.NEB INHALATION ×2 (13:11→19:10)
--- NOTE | 2023-03-14 13:39 | PN.HOSP_ITS ---
Reason for Visit Reason for Visit: Diagnoses Alcohol dependence, uncomplicated (03/10/23) Alcohol use, unspecified with withdrawal, unspecified (03/10/23) Personal history of other diseases of the circulatory system (03/10/23) Subjective Subjective Patient was seen and examined today, he is alert and not confused, he states he is bored, I encouraged him to walk in the [place]. I talked briefly with addiction clinical social work therapist about his care. They recommended that he not get into his belongings (I suggested the possibility of opening his storage bins) because they felt that the patient would likely believe if he was able to get into his belongings. At this point in time we are waiting for approval from his insurance carrier to see if they will pay for intermediate facilities, if they will not, he will go to the nursing facility under his Medicaid coverage. Objective Data Objective Data Vital Signs: Vital Signs Temp Pulse Resp BP Pulse Ox O2 Del Method 98.0 F 88 16 135/78 H 97 Room Air 03/14/23 08:39 03/14/23 08:39 03/14/23 08:39 03/14/23 08:39 03/14/23 08:39 03/14/23 09:00 Oxygen Delivery Method Room Air Weight: 104.054 kg Body Mass Index (BMI) 34.9 Intake & Output: Intake and Output for Last 24 Hours 03/12/23 03/13/23 03/14/23 23:59 23:59 23:59 Intake Total 750 / 750 1600 / 1600 800 / 800 Balance 750 / 750 1600 / 1600 800 / 800 Lab / Micro Data Result Diagrams: 03/10/23 01:00 03/10/23 01:00 Micro: Microbiology 03/13/23 17:00 Nasal Secretion SARS-CoV-2 Antigen (Rapid) - Final Physical Exam Narrative alert and no apparent distress General Appearance: cooperative and well developed Orientation / Consciousness: awake, oriented to person and oriented to place HEENT normocephalic, head/scalp atraumatic and moist oral mucous membranes Eyes PERRL, EOMs intact bilaterally and conjunctivae normal Neck supple, no JVD, thyroid normal and no carotid bruits General: trachea midline Resp normal respiratory effort, no retractions, no use of accessory muscles and clear to auscultation bilaterally Auscultation: Negative for rales, rhonchi or wheezes Cardio regular rate, regular rhythm, S1 normal heart sound, S2 normal heart sound, no murmurs, no rub and no gallops GI normal to inspection, nondistended, normoactive bowel sounds, soft to palpation, non-tender and non-distended Extremity normal to inspection and no clubbing, cyanosis or edema Skin no rashes or lesions noted General Skin Exam: no breakdown Neuro CN's II-XII intact bilaterally, moves all extremities, no focal motor deficits and no sensory deficits noted Sensorium / Orientation: awake, alert, oriented to person and oriented to place Speech: speech normal Psych affect normal Assessment & Plan Assessment/Plan (1) Alcohol dependence: (2) Alcohol withdrawal: PLAN: Plan 1.? Acute alcohol withdrawal-patient is minimally symptomatic at this time, he will continue on his phenobarbital-I have tapered his phenobarbital further today #2 hyperlipidemia-patient is on atorvastatin #3 chronic depression-patient is on Abilify and Cymbalta #4 essential hypertension-patient is on metoprolol and amlodipine #5 chronic alcoholism-complicates care, medical course, recovery, and prognosis Total clinical time spent by myself addressing the patient's medical issues, reviewing all the data, and collaborating with the patient's care team: 35 minutes Charges/Coding Visit Charges Inpatient E&M: 83342 Subs Hosp L2
[2023-03-14] MEDS: Acetaminophen 325 MG Tablet 650 MG PO (16:09)
[2023-03-14] MEDS: traZODone 100 MG Tablet PO (22:12)
[2023-03-14] MEDS: Atorvastatin Calcium 40 MG Tablet PO (22:12)
[2023-03-15] VITALS (9 sets, daily range): BP systolic 113–147; BP diastolic 72–93; PULSE 71–111; RESP 16–18; TEMP 36.6–36.7; O2SAT 93–100
[2023-03-15] MEDS: Ipratropium/Albuterol Sulfate 3 ML AMPUL.NEB INHALATION ×3 (06:49→19:05)
[2023-03-15] MEDS: Nystatin Powder 15gm Bottle 1 APPLIC TOPICAL ×2 (09:34→21:36)
[2023-03-15] MEDS: Phenobarbital 32.4 MG Tablet PO ×2 (09:34→21:37)
[2023-03-15] MEDS: DULoxetine Hcl 60 MG Capsule PO (09:35)
[2023-03-15] MEDS: Thiamine Hydrochloride 100 MG Tablet PO (09:35)
[2023-03-15] MEDS: Metoprolol Tartrate 100 MG Tablet PO ×2 (09:35→21:36)
[2023-03-15] MEDS: Folic Acid 1 MG Tablet PO (09:35)
[2023-03-15] MEDS: amLODIPine 5 MG Tablet PO (09:36)
[2023-03-15] MEDS: Menthol/Lanolin/Calamine/Znox 113 GM Tube 1 APPLIC TOPICAL ×2 (09:36→21:37)
[2023-03-15] MEDS: ARIPiprazole 5 MG Tablet PO (09:36)
--- NOTE | 2023-03-15 12:52 | PCM.PN.HOSP ---
Reason for Visit Reason for Visit: Diagnoses Alcohol dependence, uncomplicated (03/10/23) Alcohol use, unspecified with withdrawal, unspecified (03/10/23) Personal history of other diseases of the circulatory system (03/10/23) Subjective Subjective Patient was seen and examined today, he is alert and appropriate. He has no complaints of any anxiety or tremors. Objective Data Objective Data Vital Signs: Vital Signs Temp Pulse Resp BP Pulse Ox O2 Del Method 98.0 F 96 16 113/72 96 Room Air 03/15/23 09:00 03/15/23 09:35 03/15/23 09:00 03/15/23 09:00 03/15/23 09:00 03/15/23 09:00 Oxygen Delivery Method Room Air Weight: 104.054 kg Body Mass Index (BMI) 34.9 Intake & Output: Intake and Output for Last 24 Hours 03/13/23 03/14/23 03/15/23 23:59 23:59 23:59 Intake Total 1600 / 1600 1100 / 1100 300 / 300 Balance 1600 / 1600 1100 / 1100 300 / 300 Lab / Micro Data Result Diagrams: 03/10/23 01:00 03/10/23 01:00 Micro: Microbiology 03/13/23 17:00 Nasal Secretion SARS-CoV-2 Antigen (Rapid) - Final Physical Exam Const alert, oriented x3, no apparent distress, average body habitus and healthy appearing General Appearance: cooperative, well kempt and well developed Orientation / Consciousness: awake, oriented to person, oriented to place and oriented to time HEENT normocephalic and moist oral mucous membranes Eyes PERRL, EOMs intact bilaterally and conjunctivae normal Neck supple, no JVD, thyroid normal and no carotid bruits General: trachea midline Resp normal respiratory effort and clear to auscultation bilaterally Auscultation: Negative for rales, rhonchi or wheezes Cardio regular rate, regular rhythm, no murmurs, no rub and no gallops GI normal to inspection, nondistended, normoactive bowel sounds, soft to palpation, non-tender and non-distended Extremity no clubbing, cyanosis or edema Skin no rashes or lesions noted General Skin Exam: no breakdown Neuro oriented x3, CN's II-XII intact bilaterally, no focal motor deficits and no sensory deficits noted Sensorium / Orientation: awake, alert, oriented to person and oriented to place Speech: speech normal Psych affect normal Assessment & Plan Assessment/Plan (1) Alcohol withdrawal: (2) Alcohol dependence: PLAN: Plan 1.? Acute alcohol withdrawal-patient is minimally symptomatic at this time, he will continue on his phenobarbital, we are awaiting penitentiary placement. #2 hyperlipidemia-patient is on atorvastatin #3 chronic depression-patient is on Abilify and Cymbalta #4 essential hypertension-patient is on metoprolol and amlodipine #5 chronic alcoholism-complicates care, medical course, recovery, and prognosis Total clinical time spent by myself addressing the patient's medical issues, reviewing all the data, and collaborating with the patient's care team: 35 minutes Charges/Coding Visit Charges Inpatient E&M: 52563 Subs Hosp L2
[2023-03-15] MEDS: Atorvastatin Calcium 40 MG Tablet PO (21:36)
[2023-03-16] VITALS (7 sets, daily range): BP systolic 118–144; BP diastolic 70–94; PULSE 95–104; RESP 18; TEMP 36.3–37; O2SAT 95–98
[2023-03-16] MEDS: Ipratropium/Albuterol Sulfate 3 ML AMPUL.NEB INHALATION ×2 (06:59→13:41)
--- NOTE | 2023-03-16 07:34 | PCM.PN.HOSP ---
Reason for Visit Reason for Visit: Diagnoses Alcohol dependence, uncomplicated (03/10/23) Alcohol use, unspecified with withdrawal, unspecified (03/10/23) Personal history of other diseases of the circulatory system (03/10/23) Objective Data Objective Data Vital Signs: Vital Signs Temp Pulse Resp BP Pulse Ox O2 Del Method 97.9 F 95 18 118/94 H 95 Room Air 03/16/23 03:00 03/16/23 07:00 03/16/23 07:00 03/16/23 03:00 03/16/23 03:00 03/16/23 03:00 Oxygen Delivery Method Room Air Weight: 229 lb 6.4 oz Body Mass Index (BMI) 34.9 Intake & Output: Intake and Output for Last 24 Hours 03/14/23 03/15/23 03/16/23 23:59 23:59 23:59 Intake Total 1100 / 1100 600 / 600 Balance 1100 / 1100 600 / 600 Lab / Micro Data Result Diagrams: 03/10/23 01:00 03/10/23 01:00 Micro: Microbiology 03/13/23 17:00 Nasal Secretion SARS-CoV-2 Antigen (Rapid) - Final Assessment & Plan Assessment/Plan (1) Alcohol withdrawal: (2) Alcohol dependence: PLAN: Plan 1.? Acute alcohol withdrawal-patient is minimally symptomatic at this time, he will continue on his phenobarbital, we are awaiting senior living placement. #2 hyperlipidemia-patient is on atorvastatin #3 chronic depression-patient is on Abilify and Cymbalta #4 essential hypertension-patient is on metoprolol and amlodipine #5 chronic alcoholism-complicates care, medical course, recovery, and prognosis Total clinical time spent by myself addressing the patient's medical issues, reviewing all the data, and collaborating with the patient's care team: 35 minutes
[2023-03-16] MEDS: Folic Acid 1 MG Tablet PO (08:31)
[2023-03-16] MEDS: Thiamine Hydrochloride 100 MG Tablet PO (08:31)
[2023-03-16] MEDS: ARIPiprazole 5 MG Tablet PO (09:07)
[2023-03-16] MEDS: Menthol/Lanolin/Calamine/Znox 113 GM Tube 1 APPLIC TOPICAL (09:07)
[2023-03-16] MEDS: DULoxetine Hcl 60 MG Capsule PO (09:07)
[2023-03-16] MEDS: amLODIPine 5 MG Tablet PO (09:07)
[2023-03-16] MEDS: Metoprolol Tartrate 100 MG Tablet PO (09:07)
[2023-03-16] MEDS: Nystatin Powder 15gm Bottle 1 APPLIC TOPICAL (09:08)
[2023-03-16] MEDS: Phenobarbital 32.4 MG Tablet PO (09:10)
--- NOTE | 2023-03-16 10:04 | CASEMGMT ---
Addendum entered by Celia Harry 03/16/23 11:27: SW updated [facility] that pt has decided to return home and that pt will not be admitting to their facility. Original Note: Social Work SW in to meet with pt following report from [facility] that pt can admit today under LOC. SW re-introduced self and asked if pt willing to discuss discharge plan. Pt agreeable and asked when can go to [facility]. Pt mentation is clear, held conversation appropriately and patient presented as oriented and alert. SW explained pt can discharge from [facility] and go to [facility] today. Pt happy, stated tired of waiting such a long time at [facility]. Pt reports has been feeling good at the hospital and hasn't thought about drinking much. SW and pt explored triggers for drinking and pt reported boredom is the biggest trigger. Further discussed coping skills that can aid with this and pt was receptive. [employer] accounts payable specialist, Akila, also present in the room discussed with pt regarding addiction and plans for pt to remain sober. SW asked pt if pt is aware how the process will go once pt admits to [facility]. WALT and Akila explained what intermediate level of care is and that this would mean pt is admitting to SNF for iv therapy nurse care, giving up apartment in the community and living at [facility] on a permanent basis. Pt did not have to think about this long before stating does not want to go to SNF- not ready to give up independence or apartment. I'm not ready for all that. WALT and Akila continued to discuss with pt plans for discharge and pt stated would go home. AWLT followed up with pt on plans for going home and what can be put in place to help pt avoid drinking alcohol. SW asked pt to start small and plan to avoid drinking for just one day and what pt can do to assist in that. Pt stated likes reading but struggles with seeing. SW suggested going to the library and asking about audio books. Pt agreeable to this. SW also asked pt about [facility] and if pt had heard from this agency. Pt stated yes but only got A bunch of brochures and doesn't feel they were helpful. WALT explained services that can be offered to pt from [facility]- Assisted living and Adult DayCare at [facility], which could help pt stop isolation and increasing social aspect that could aid in sobriety. Pt appeared somewhat interested in this but stated would think about it. Pt declined Assisted Living option, stated I'm not ready for that either. I like the apartment I live in now. Akila discussed with pt the option of [facility] today or tomorrow after discharge. Pt agreeable to this. SW suggested pt also ask for case management services. Pt agreeable to this as well. SW updated [facility] to inform of pt plan of returning home. MD Hunter intent to discharge pt home today. Dispo: Home-Pt to follow up with [facility] for assessment and case management tomorrow. Celia Harry, PRISCILLA
--- NOTE | 2023-03-16 10:25 | DCINST_ITS ---
Discharge Instructions Diet Discharge Diet: No restrictions Activity Discharge Activity: Return to Normal Activity Weight Bearing Status: Weight bearing as tolerated Dressing / Incision Call your doctor if you observe: Fever of 101 or Higher, Coldness, Increased Pain, Numbness or Tingling, Change in Color, Inability to urinate, Inability to have a bowel movement, Shortness of breath, Dizziness, Fainting spells, Swelling in the ankles, Chest pain, Prolonged hiccupping, Increased palpitations (irregular heartbeat) and Calf discomfort Follow Up Care When: IN 2 WEEKS Test Results: Test results from this visit will be discussed in further detail at your follow- up appointment, if applicable. Discharge Plan Admission Admit Date/Time: 03/10/23 03:16 Primary Reason for Your Visit: alcohol detox Attending Provider: Arsh Hunter Primary Care Provider: Graciela Ashley Consulting Providers: Mike Weeks ; Jorge Gardner Instructions Additional Instructions / Restrictions: Follow-up outpatient alcohol rehab 180 in 1 week Discharge Orders/Prescriptions Prescriptions: New phenobarbital 32.4 mg tablet 32.4 mg PO BID Qty: 8 0RF Rx Instructions: one twice a day for 4 days, then discontinue Continued metoprolol tartrate 100 mg tablet 100 mg PO BID duloxetine 60 mg capsule,delayed release(DR/EC) 60 cap PO DAILY atorvastatin 40 mg tablet 40 tab PO DAILY Label Comments: 1 tablet by mouth as directed aripiprazole 5 mg Tablet 5 mg PO DAILY thiamine HCl (vitamin B1) [Vitamin B-1] 100 mg Tablet 100 mg PO DAILYCM Qty: 30 2RF folic acid 1 mg Tablet 1 mg PO BREAKFAST Qty: 30 2RF amlodipine 5 mg tablet 5 mg PO DAILY Referrals / Follow Up: Graciela Ashley DO [Primary Care Provider] - Within 1 Week Disposition Disposition (needs filled in before D/C Order can be placed): Home, Self Care
--- NOTE | 2023-03-16 12:00 | DS.PCM_ITS ---
Providers Date of Admission: 03/10/23 Date of Discharge: 03/16/23 Primary Care Physician: Graciela Ashley DO Reason For Visit: ALCOHOL WITHDRAWL Diagnosis Discharge Diagnosis (1) Alcohol withdrawal: Status: Acute Code(s): F10.939 - Alcohol use, unspecified with withdrawal, unspecified (2) Alcohol dependence: Status: Acute Code(s): F10.20 - Alcohol dependence, uncomplicated Plan 72-year-old gentleman was admitted through the emergency room for acute alcohol withdrawal syndrome.Patient was recently discharged from alcohol withdrawal program he asked for 10-day inpatient stay in any event, started drinking immed iately. Prior to that, he was discharged on February 14, 2023. 1.? Acute alcohol withdrawal syndrome with history of chronic alcohol use disorder with dependence, tolerance, relapse and multiple recurrent hospitalizations: Patient was admitted and treated with phenobarbital based order set along with other adjunctive medications as needed for alcohol withdrawal symptom control. Had CIWA monitor. Patient minimally symptomatic. Patient was waiting for SNF but patient does not want to go for long-term more than 1 month. Discussed with social science manager although initially plan was to discharge to [facility] but patient did not want to go to residential and the insurance does not accept for short-term residential stay, less than 1 month. #2 hyperlipidemia-patient is on atorvastatin #3 chronic depression-patient is on Abilify and Cymbalta #4 essential hypertension-patient is on metoprolol and amlodipine #5 chronic alcoholism-complicates care, medical course, recovery, and prognosis Discharge medication reconciliation done. Discharge follow-up instructions completed. Discharge process discussed with the patient and all questions were answered to patient's satisfaction. Total time spent, exact 35 minutes on discharge meds reconciliation, examination, coordination of care with nurses and ancillary staff, review of imaging and blood test and discussion with the patient on follow-up instructions. Medications at Discharge Home Medications metoprolol tartrate 100 mg tablet 100 mg PO BID bp 10/03/19 atorvastatin 40 mg tablet 40 tab PO DAILY cholesterol 05/08/22 duloxetine 60 mg capsule,delayed release 60 cap PO DAILY mood 05/08/22 aripiprazole 5 mg tablet 5 mg PO DAILY mood 05/26/22 folic acid 1 mg tablet 1 mg PO BREAKFAST #30 tabs 11/13/22 thiamine HCl (vitamin B1) 100 mg tablet (Vitamin B-1) 100 mg PO DAILYCM #30 tabs 11/13/22 amlodipine 5 mg tablet 5 mg PO DAILY BP 12/15/22 phenobarbital 32.4 mg tablet 32.4 mg PO BID #8 tabs 03/13/23 Physical Exam Narrative Seen and examined. Patient stated he did not want to go to residential for 1 month. Communicated to the social science manager. At last decided for home discharge. Physical exam General: Alert, Oriented x3, Cooperative.? Well-hydrated HEENT: Atraumatic, PERRLA, EOMI, Normocephalic Oral: Oral mucosa moist no Gingival or Mucosal Lesions/ Ulcerations Neck: Supple, No JVD, Negative Carotid Bruits Lungs:? Air entry diminished in bilateral lung bases.? No crepitation/rhonchi Cardiovascular: Regular rate, Regular Rhythm, Normal S1, Normal S2, No murmurs Abdomen: Bowel Sounds Present, Soft, Non Tender, Non-Distended.? No palpable shifting dullness.? Liver not enlarged : No dysuria.? No renal angle tenderness.? No suprapubic tenderness. Extremities: No edema, Capillary Refill Less than 3 Seconds Skin: No rashes, No breakdown Musculoskeletal: No Tenderness to Palpation of Joints or Extremities Neurological: Cranial nerves II-XII grossly intact, DTR? 2+/4 and Symmetrical, Neuro grossly intact Psych/Mental Status: Flat affect. Weight / BMI Weight Weight: 229 lb 6.4 oz Body Mass Index (BMI) 34.9 ABG / Lab / Microbiology Data Result Diagrams: 03/10/23 01:00 03/10/23 01:00 Microbiology: Microbiology 03/13/23 17:00 Nasal Secretion SARS-CoV-2 Antigen (Rapid) - Final D/C Instructions Discharge Diet: No restrictions Weight Bearing Status: Weight bearing as tolerated Call your doctor if you observe: Fever of 101 or Higher, Coldness, Increased Pain, Numbness or Tingling, Change in Color, Inability to urinate, Inability to have a bowel movement, Shortness of breath, Dizziness, Fainting spells, Swelling in the ankles, Chest pain, Prolonged hiccupping, Increased palpitations (irregular heartbeat) and Calf discomfort When: IN 2 WEEKS Meaningful Use Info Meaningful Use Diagnoses (Choose all that apply): None applicable Discharge Plan Admission Admit Date/Time: 03/10/23 03:16 Primary Reason for Your Visit: alcohol detox Attending Provider: Arsh Hunter Primary Care Provider: Graciela Ashley Consulting Providers: Mike Weeks ; Jorge Gardner Instructions Additional Instructions / Restrictions: Follow-up outpatient alcohol rehab 180 in 1 week Discharge Orders/Prescriptions Prescriptions: New phenobarbital 32.4 mg tablet 32.4 mg PO BID Qty: 8 0RF Rx Instructions: one twice a day for 4 days, then discontinue Continued metoprolol tartrate 100 mg tablet 100 mg PO BID duloxetine 60 mg capsule,delayed release(DR/EC) 60 cap PO DAILY atorvastatin 40 mg tablet 40 tab PO DAILY Label Comments: 1 tablet by mouth as directed aripiprazole 5 mg Tablet 5 mg PO DAILY thiamine HCl (vitamin B1) [Vitamin B-1] 100 mg Tablet 100 mg PO DAILYCM Qty: 30 2RF folic acid 1 mg Tablet 1 mg PO BREAKFAST Qty: 30 2RF amlodipine 5 mg tablet 5 mg PO DAILY Referrals / Follow Up: Graciela Ashley DO [Primary Care Provider] - Within 1 Week Disposition Disposition (needs filled in before D/C Order can be placed): Home, Self Care Charges/Coding Visit Charges Inpatient E&M: 48089 Disch Hosp >30min
--- NOTE | 2023-03-16 12:16 | NURSING ---
Pt is requesting to talk to social media community manager, he is no longer in agreement to go to [facility]. He is wanting to return home on his own.
--- NOTE | 2023-03-16 13:27 | CASEMGMT ---
Social Work SW received call from [employer]. Denis requesting updated therapy notes for pt. SW explained pt has now decided to discharge home and that precert is no longer needed. PRISCILLA Christian
--- NOTE | 2023-03-16 14:25 | PHA.DC.MR ---
Pharmacy Service has performed discharge medication reconciliation for this patient. The patient's discharge medication list was reviewed for discrepancies and discrepancies were resolved. Home Medications metoprolol tartrate 100 mg tablet 100 mg PO BID bp 10/03/19 atorvastatin 40 mg tablet 40 tab PO DAILY cholesterol 05/08/22 duloxetine 60 mg capsule,delayed release 60 cap PO DAILY mood 05/08/22 aripiprazole 5 mg tablet 5 mg PO DAILY mood 05/26/22 folic acid 1 mg tablet 1 mg PO BREAKFAST #30 tabs 11/13/22 thiamine HCl (vitamin B1) 100 mg tablet (Vitamin B-1) 100 mg PO DAILYCM #30 tabs 11/13/22 amlodipine 5 mg tablet 5 mg PO DAILY BP 12/15/22 phenobarbital 32.4 mg tablet 32.4 mg PO BID #8 tabs 03/13/23
== END 2023-03-16 15:13 | disposition home or self-care (01) | DRG 897 ==
LOC: ED 03-10 02:19 → MS3 03-10 04:34
PROVIDERS: Admitting Provider Family Medicine; Emergency Provider Emergency Medicine; PCP Family Medicine; Visit Provider Internal Medicine
DX: F10.239 Alcohol dependence with withdrawal, unspecified (principal); I48.20 Chronic atrial fibrillation, unspecified; E78.5 Hyperlipidemia, unspecified; I10 Essential (primary) hypertension; Z87.891 Personal history of nicotine dependence; F32.A Depression, unspecified; Y90.6 Blood alcohol level of 120-199 mg/100 ml
CPT/HCPCS: 71045; 80048; 80076; 80307; 82077; 85025; 85610; 87811; 94640; 97110; 97116; 97162; 97166; 97530; 97535; 99284; J7030; A4216; J2405

== ENCOUNTER 2023-03-23 01:58 | Inpatient (IN) | payer MEDICARE, MEDICAID, SELFPAY ==
[2023-03-23] VITALS (7 sets, daily range): BP systolic 131–165; BP diastolic 84–110; PULSE 80–99; RESP 16–20; TEMP 36.6–37; O2SAT 94–99; BMI 35.1; BMI 34.2
[2023-03-23 02:30] LABS: Absolute Lymphocyte Count 1.64 X10^3/uL (0.83-4.51); Absolute Neutrophil Count 5.5 X10^3/uL (2.0-7.7); Basophil# 0.05 X10^3/uL; Basophil% 0.6 % (0-1); Eosinophil# 0.15 X10^3/uL; Eosinophils% 1.9 % (0-5); Hematocrit 40.8 % (40-54); Hemoglobin 14.5 g/dL (13.0-16.5); Lymphocyte # 1.64 X10^3/ul (0.83-4.51); Lymphocyte % 20.4 % (19-41); Mean Corp Hgb Conc 35.5 g/dL (32-36); Mean Corpuscular Hgb 34.2 pg (27.0-32.0); Mean Corpuscular Volume 96.2 fL (80-94); Mean Platelet Vol. 10.3 fl (6.2-12.0); Monocyte# 0.69 X10^3/uL; Monocyte% 8.6 % (0-10); NRBC Flagged by Analyzer 0 % (0-5); Neutrophil # 5.46 X10^3/uL (2.7-7.7); Platelet Count 244 K/mm3 (150-450); RBC Distribution Width CV 13.7 % (11.6-14.6); RBC Distribution Width SD 48.3 fl (35.1-43.9); Red Blood Count 4.24 M/mm3 (4.6-6.2)
--- NOTE | 2023-03-23 02:45 | EDS_ITS ---
HPI History of Present Illness Chief Complaint: ETOH Intox Informant: patient Narrative Narrative: When asked with the patient came to the emergency department for, he said I am back again. He states he wants detox. He has a long history of alcoholism. He drinks currently about six 24 ounce high-strength beers a day. If he does not drink he gets shaky. He has had seizures but has not had one recently. He was admitted for detox on the nin of this month through the of this month. He completed it. He started drinking within 3 days of discharge. He states he has had nausea today but no vomiting. He does take meds for cholesterol and blood pressure but has not been taking them. He is not having abdominal pain. No chest pain. No blood in the stool. Although he is depressed and upset with his drinking he denies thoughts of hurting himself. He wants to get better. [facility] Medical History (Updated 03/23/23 @ 02:[address] Aurea Carlton MD) Alcohol abuse Alcoholic cardiomyopathy Anxiety and depression Atrial flutter, paroxysmal Former tobacco use History of acute alcoholic hepatitis HTN (hypertension) Left atrial enlargement Obesity PAF (paroxysmal atrial fibrillation) Panic disorder Home Medications metoprolol tartrate 100 mg tablet 100 mg PO BID bp 10/03/19 [History Last Taken 11/06/22] atorvastatin 40 mg tablet 40 tab PO DAILY cholesterol 05/08/22 [History Last Taken 11/06/22] duloxetine 60 mg capsule,delayed release 60 cap PO DAILY mood 05/08/22 [History Last Taken Unknown] aripiprazole 5 mg tablet 5 mg PO DAILY mood 05/26/22 [History Last Taken 11/05/22] folic acid 1 mg tablet 1 mg PO BREAKFAST #30 tabs 11/13/22 [Rx Last Taken Unknown] thiamine HCl (vitamin B1) 100 mg tablet (Vitamin B-1) 100 mg PO DAILYCM #30 tabs 11/13/22 [Rx Last Taken Unknown] amlodipine 5 mg tablet 5 mg PO DAILY BP 12/15/22 [History Last Taken Unknown] Allergy/AdvReac Type Severity Reaction Status Date / Time No Known Allergies Allergy Verified 03/23/23 02:02 Family History Mother CVA (cerebral vascular accident) Father Cancer lung cancer Surgical History Hx of cholecystectomy Social History household members: none housing: apartment Smoking Status: Former smoker alcohol intake: current alcohol intake frequency: 3 or more drinks per day details: 24 12 ounce beers daily substance use type: does not use ROS ROS ED ROS Narrative A complete review of systems was performed and is negative except as documented in the history of present illness. Some specific details below. Constitutional: No recent fevers or chills. EYE: No visual complaints or pain. ENT: No difficulty swallowing. No GERD. No pain with swallowing CV: No chest pain or palpitations. It sounds like he has a history of intermittent A-fib but is not on blood thinners. Is likely due to significant risk of bleeding from alcohol use and falling. Respiratory: No dyspnea. No hemoptysis. No difficulty taking breaths. GI: He has had nausea but no vomiting diarrhea or blood in the stool. : No frequency dysuria or hematuria. Musculoskeletal: No recent trauma. No pains. Skin: No rash. Nondiaphoretic. Neuro: No weakness or numbness. Endocrine: No polyuria or polydipsia. EXAM Physical Exam Narrative Exam Narrative: CONSTITUTIONAL: Patient is nontoxic in appearance. The patient looks comfortable. He carries on normal conversation. HEENT: No notable trauma. Mucous membranes moist. No sinus tenderness. No indication of pain with swallowing. EYES: Bilateral mild conjunctival injection. CARDIOVASCULAR: Regular rate. Regular rhythm. No notable murmur. No JVD. He is not notably tachycardic. RESPIRATORY: No respiratory distress. Breathing is unlabored. No wheezes. No rhonchi. No rales. No pain with a deep breath. GASTROINTESTINAL: Not distended. Bowel sounds are normal. No tenderness. No mass felt. GENITOURINARY: No tenderness over the bladder. No CVA tenderness. MUSCULOSKELETAL: Atraumatic. No tenderness. NEUROLOGICAL: Patient is alert and appropriate. No focal deficit noted. He is not confused. No indication of hallucinations. SKIN: No noted rashes. No diaphoresis. No piloerection PSYCHIATRIC: Patient is calm. Mood is appropriate. Mildly tearful but denies suicidal thoughts. Const Vital Signs: 03/23/23 01:59 05/22/23 03:02 Temperature 98 F 98.6 F Temperature Source Temporal Temporal Pulse Rate 91 99 Respiratory Rate 16 20 H Blood Pressure 140/100 H 142/97 H Blood Pressure Mean 113 112 Pulse Ox 98 99 Oxygen Delivery Method Room Air Room Air MDM MDM MDM Narrative Medical decision making narrative: Patient CBC shows normal white count hemoglobin and platelets despite his history of heavy drinking. Patient's electrolytes showed minimal elevation of chloride but preserved renal function. Patient's liver function tests actually show no marked abnormalities Alcohol level is low at 5. This is consistent with last drink being somewhere in the morning and having nausea all day. But he denies vomiting. Coagulation studies were not done as he just had a recent INR on his last admission. I discussed case with the hospitalist. This patient has recurrent issues with alcoholism. He has A-fib but he is not on anticoagulation likely due to his risks of falls are greater than the benefits of the medicine. He will be readmitted for further treatment. Because he has nausea I will give him a dose of Zofran here. Lab Data Attestation: I reviewed the patient's lab results. Labs: Laboratory Results - last 24 hr 03/23/23 03/23/23 03/23/23 02:20 02:20 02:20 WBC 8.0 RBC 4.24 L Hgb 14.5 Hct 40.8 MCV 96.2 H MCH 34.2 H MCHC 35.5 RDW Std Deviation 48.3 H RDW Coeff of Pati 13.7 Plt Count 244 MPV 10.3 Immature Gran % (Auto) 0.500 Neut % (Auto) 68.0 Lymph % (Auto) 20.4 [place] % (Auto) 8.6 Eos % (Auto) 1.9 Baso % (Auto) 0.6 Absolute Neuts (auto) 5.5 Absolute Lymphs (auto) 1.64 Nucleated RBC % 0 Sodium 142 Potassium 3.5 Chloride 111 H Carbon Dioxide 22.0 Anion Gap 9 BUN 11 Creatinine 0.81 Estim Creat Clear Calc 78.58 Est GFR (MDRD) Af Amer 119 Est GFR (MDRD) Non-Af 99 BUN/Creatinine Ratio 13.5 Glucose 93 Calcium 8.6 Total Bilirubin 0.40 AST 23 ALT 22 Alkaline Phosphatase 106 Total Protein 6.9 Albumin 3.1 L Globulin 3.8 Albumin/Globulin Ratio 0.8 L Ur Drug Screen Comment Ethyl Alcohol 5.0 03/23/23 02:40 WBC RBC Hgb Hct MCV MCH MCHC RDW Std Deviation RDW Coeff of Pati Plt Count MPV Immature Gran % (Auto) Neut % (Auto) Lymph % (Auto) [place] % (Auto) Eos % (Auto) Baso % (Auto) Absolute Neuts (auto) Absolute Lymphs (auto) Nucleated RBC % Sodium Potassium Chloride Carbon Dioxide Anion Gap BUN Creatinine Estim Creat Clear Calc Est GFR (MDRD) Af Amer Est GFR (MDRD) Non-Af BUN/Creatinine Ratio Glucose Calcium Total Bilirubin AST ALT Alkaline Phosphatase Total Protein Albumin Globulin Albumin/Globulin Ratio Ur Drug Screen Comment Ethyl Alcohol EKG Initial EKG: Comments: My independent interpretation the patient's EKG done for history of atrial fibrillation does in fact show atrial fibrillation. Rate is controlled at 100. No ventricular ectopy noted. No acute ST elevation or depression. QRS duration and QTc are normal. Management Discussion w/another healthcare provider: Hospitalist Discharge Plan Disposition Disposition: Acute Care Hospital [facility]
--- NOTE | 2023-03-23 02:45 | PCM.HP.STD ---
HPI - General General Date of Admission: 03/23/23 Date of Service: 03/23/23 Chief Complaint: EtOH withdrawal HPI Narrative The patient is a 72 y/o M w/ PMHx: Obesity, Anxiety and Depression/Panic disorder, PAF/Flutter, HTN, HLD, GERD/Gastritis history, Alcoholic Cardiomyopathy, EtOH abuse, recently discharged following thorough EtOH acute withdrawal treatment 03/16/23 reporting sobriety until the phenobarbital BID regimen was completed following which he started drinking tall boys, ~6 daily again and on day prior to presentation reports last intake ~ 10 pm following which he passed out and eventual awoke nauseated and ill with sensation of mild withdrawal because of the time that had passed with reported mild tremors and tactile disturbances prompting EMS call. In the ED he is tearful about starting to drink again. He does not interest in again restarting the program. Discussed he may benefit from more long-term residential program at discharge. Work-up in the ED included T98, heart rate 91, BP 140/100, respiratory rate 16, 98% on room air, CBC with WC, hemoglobin 14.5, platelet 244 without marked shift, CMP with chloride 111 otherwise not marked appearing, UDS pending upon request evaluation patient, ethyl alcohol level 5. [facility] Medical History (Updated 03/23/23 @ 02:[address] Aurea Carlton MD) Alcohol abuse Alcoholic cardiomyopathy Anxiety and depression Atrial flutter, paroxysmal Former tobacco use History of acute alcoholic hepatitis HTN (hypertension) Left atrial enlargement Obesity PAF (paroxysmal atrial fibrillation) Panic disorder Home Medications metoprolol tartrate 100 mg tablet 100 mg PO BID bp 10/03/19 [History Last Taken 11/06/22] atorvastatin 40 mg tablet 40 tab PO DAILY cholesterol 05/08/22 [History Last Taken 11/06/22] duloxetine 60 mg capsule,delayed release 60 cap PO DAILY mood 05/08/22 [History Last Taken Unknown] aripiprazole 5 mg tablet 5 mg PO DAILY mood 05/26/22 [History Last Taken 11/05/22] folic acid 1 mg tablet 1 mg PO BREAKFAST #30 tabs 11/13/22 [Rx Last Taken Unknown] thiamine HCl (vitamin B1) 100 mg tablet (Vitamin B-1) 100 mg PO DAILYCM #30 tabs 11/13/22 [Rx Last Taken Unknown] amlodipine 5 mg tablet 5 mg PO DAILY BP 12/15/22 [History Last Taken Unknown] Allergy/AdvReac Type Severity Reaction Status Date / Time No Known Allergies Allergy Verified 03/23/23 02:02 Family History Mother CVA (cerebral vascular accident) Father Cancer lung cancer Surgical History Hx of cholecystectomy Social History household members: none housing: apartment Smoking Status: Former smoker alcohol intake: current alcohol intake frequency: 3 or more drinks per day details: 24 12 ounce beers daily substance use type: does not use ROS ROS Narrative Admission Review of Systems: CONSTITUTIONAL: No weight loss, fever, chills, + weakness or fatigue. HEENT: Eyes: No visual loss, blurred vision, double vision or yellow sclerae. Ears, Nose, Throat: No hearing loss, sneezing, congestion, runny nose or sore throat. SKIN: No rash or itching, lesions, wounds. CARDIOVASCULAR: + Suspected passed out after heavy EtOH intake initially. No chest pain, chest pressure or chest discomfort, palpitations, edema, orthopnea. RESPIRATORY: No shortness of breath, cough or sputum, wheezing, hemoptysis. GASTROINTESTINAL: + anorexia, nausea. No vomiting or diarrhea, abdominal pain, melena, BRBPR. GENITOURINARY: No dysuria, frequency, urgency or retention. NEUROLOGICAL: + Suspected passed out after heavy EtOH intake initially, eventual withdrawal onset with mild tremors, tacticle disturbances. No headache, dizziness, paralysis, ataxia, numbness or tingling in the extremities, focal weakness, change in bowel or bladder control, seizure. MUSCULOSKELETAL: + muscle, back pain, joint pain or stiffness. HEMATOLOGIC: + easy bleeding or bruising. LYMPHATICS: No enlarged nodes. No history of splenectomy. PSYCHIATRIC: + history of depression or anxiety. ENDOCRINOLOGIC: No reports of sweating, cold or heat intolerance. No polyuria or polydipsia. ALLERGIES: No history of asthma, hives, eczema or rhinitis. Vital Signs Vital Signs Vital Signs: 03/23/23 01:59 Temperature 98 F Temperature Source Temporal Pulse Rate 91 Respiratory Rate 16 Blood Pressure 140/100 H Blood Pressure Mean 113 Pulse Ox 98 Oxygen Delivery Method Room Air Weight Weight: 230 lb 13.184 oz Body Mass Index (BMI) 35.1 Physical Exam Narrative Physical Examination: General: Awake, alert, oriented x 3 and cooperative, seated upright in the ED bed, tearful, mildly agitated and restless. Skin: Normal color, normal turgor, no icterus, no cyanosis except for occasional staged ecchymoses. HEENT: AT/NC, EOMI, PERRLA, dry MM, no carotid bruits or JVD noted. Lungs: Mildly diminished, greater bases, appropriate effort, no rales, ronchi or wheezing. Heart: Mildly tachycardic; no gallop, rub audible, no appreciated murmurs. Abdomen: Soft, obese, NTTP, no obvious distention, mildly hyperactive bowel sounds, difficult to discern HSM given habitus. Extremities: No cyanosis, clubbing, or edema. Neurological: Patient awake, alert, oriented as noted, cognitive function intact; pupils equally reactive to light and accommodation, cranial nerves II-XII grossly normal, moving all 4 extremities, no focal deficits, mild tremors evident, restless, strength moderately global decrease secondary to acute presentation. Psychiatric: Affect appears stressed, tearful, depressed, no SI but is evident that his underlying psychiatric illnesses contribute greatly to his alcohol abuse. Results Lab / Micro Data Result Diagrams: 03/23/23 02:20 03/23/23 02:20 Labs: Laboratory Results - last 24 hr 03/23/23 02:20: WBC 8.0, RBC 4.24 L, Hgb 14.5, Hct 40.8, MCV 96.2 H, MCH 34.2 H, MCHC 35.5, RDW Std Deviation 48.3 H, RDW Coeff of Pati 13.7, Plt Count 244, MPV 10.3, Immature Gran % (Auto) 0.500, Neut % (Auto) 68.0, Lymph % (Auto) 20.4, [place] % (Auto) 8.6, Eos % (Auto) 1.9, Baso % (Auto) 0.6, Absolute Neuts (auto) 5.5, Absolute Lymphs (auto) 1.64, Nucleated RBC % 0 03/23/23 02:20: Ethyl Alcohol 5.0 Assessment & Plan Assessment/Plan (1) Alcohol withdrawal: PLAN: Plan The patient is a 72 y/o M w/ PMHx: Obesity, Anxiety and Depression/Panic disorder, PAF/Flutter, HTN, HLD, GERD/Gastritis history, Alcoholic Cardiomyopathy, EtOH abuse, recently discharged following thorough EtOH acute withdrawal treatment 03/16/23 reporting sobriety until the phenobarbital BID regimen was completed following which he started drinking tall boys, ~6 daily again and on day prior to presentation reports last intake ~ 10 pm following which he passed out and eventual awoke nauseated and ill with sensation of mild withdrawal because of the time that had passed with reported mild tremors and tactile disturbances prompting EMS call. #1. Acute EtOH Withdrawal: Will admit to medical surgical floor, routine labs obtained in the ED upon presentation without marked findings, UDS. Given interest in sobriety, will initiate and continue on protocol with taper course of Phenobarbital, as needed gabapentin, Catapres, Bentyl, Vistaril, IV fluids, IV antiemetics, Tylenol as needed for pain. Will consult Case management for assistance for transition to next level of rehabilitation care. Mag, phos pending. #2. History alcoholic cardiomyopathy: Most recent noted echocardiogram 04/15/2022 with LV systolic function normal, EF 55%, moderately enlarged LA, mildly enlarged RA, mild to moderate MVI, mild to moderate TVI, mild PVI and from records was noted 04/03/2017 with ECHO at that time notable for reduced EF 40-45% with global hypokinesis. #3. Anxiety and depression/panic disorder: We will continue patient home aripiprazole and duloxetine home regimen. #4. Hypertension: Continue home regimen including metoprolol, amlodipine, PRN hydralazine. #5. Hyperlipidemia: We will continue patient on statin therapy. #6. Obesity: Weight loss and lifestyle changes encouraged. #7. PAF/flutter: Noted history, will continue metoprolol, not chronically anticoagulated given risk. #8. GERD/gastritis history: We will maintain on famotidine, as needed Mylanta #9. DVT prophylaxis: Given presentation lower risk, encourage ambulation. #10. CODE STATUS: Full code. Admission Evaluation Time spent evaluating chart, patient history, patient evaluation, care planning and discussion with specialists: 60 minutes. Charges/Coding Visit Charges Inpatient E&M: 80828 Init Hosp L2
--- NOTE | 2023-03-23 02:48 | EKG12_ITS ---
Test Reason : DYSRHYTHMIA Blood Pressure : / mmHG Vent. Rate : 100 BPM Atrial Rate : 357 BPM P-R Int : 000 ms QRS Dur : 092 ms QT Int : 326 ms P-R-T Axes : 000 027 046 degrees QTc Int : 420 ms Atrial fibrillation Low voltage QRS Abnormal ECG Confirmed by AURELIO MEJIA, ALBERTO ([id number]), news video editor MELVI ALBA ([id number]) on 03/23/2023 10:24:30 AM Referred By: PL Confirmed By:ALBERTO CAREY MD
[2023-03-23 02:49] LABS: ALB/GLOB Ratio 0.8 RATIO (0.9-2.4); AST(SGOT) 23 U/L (15-37); Alanine Aminotransfer ALT/SGPT 22 U/L (16-61); Albumin, Serum 3.1 g/dL (3.2-5.0); Alkaline Phosphatase 106 U/L (45-117); Anion Gap 9 (5-15); BUN 11 mg/dL (7-18); BUN/Creat Ratio 13.5 RATIO (10-20); Calcium,Total 8.6 mg/dL (8.5-10.1); Chloride 111 mmol/L (98-107); Creatinine, Serum 0.81 mg/dL (0.70-1.30); EST Glomerular Filtration Rate 99 mL/min (>60); Est Glom Filt Rate - Afr Amer 119 mL/min (>60); Estimated Creatinine Clearance 78.58 ml/min; Globulin 3.8 g/dL (2.2-4.2); Glucose 93 mg/dL (74-106); Potassium 3.5 mmol/L (3.5-5.1); Protein, Total 6.9 g/dL (6.4-8.2); Sodium Level 142 mmol/L (136-145)
[2023-03-23] MEDS: Ondansetron 4 MG/2 ML Vial IV (02:59)
[2023-03-23 03:26] LABS: Magnesium 2.1 mg/dL (1.6-2.6); Phosphorus 2.4 mg/dL (2.5-4.9)
[2023-03-23 03:31] LABS: Amphetamine Urine VISTA NEGATIVE (<1000 ng/mL); Barbiturate Urine VISTA POSITIVE (< 200 ng/mL); Benzodiazepine Urine VISTA NEGATIVE (< 200 ng/mL); Cocaine Urine VISTA NEGATIVE (< 300 ng/mL); Ecstacy Urine VISTA NEGATIVE (< 500 ng/mL); Methadone Urine VISTA NEGATIVE (< 300 ng/mL); PCP Urine VISTA NEGATIVE (< 25 ng/mL); THC Urine VISTA NEGATIVE (< 50 ng/mL); Vista UDS pH Range 4
[2023-03-23] MEDS: Phenobarbital 32.4 MG Tablet 97.2 MG PO ×3 (03:57→12:43)
[2023-03-23] MEDS: Lactated Ringers 1,000 ML 125 ML IV (04:02)
[2023-03-23] MEDS: Gabapentin 300 MG Capsule PO (05:42)
[2023-03-23] MEDS: Acetaminophen 325 MG Tablet 650 MG PO (05:42)
[2023-03-23] MEDS: hydrOXYzine PAM 25 MG Capsule 50 MG PO (05:43)
[2023-03-23] MEDS: Albuterol 2.5 MG/3 ML VIAL.NEB. INHALATION (06:54)
--- NOTE | 2023-03-23 07:05 | PN.HOSP_ITS ---
Reason for Visit Reason for Visit: Diagnoses Alcohol use, unspecified with withdrawal, unspecified (03/23/23) Subjective Subjective Doesn't know if he wants to be here. Thinks it was a mistake. he's not sure if he wants to quit alcohol. Objective Data Objective Data Vital Signs: Vital Signs Temp Pulse Resp BP Pulse Ox O2 Del Method 36.6 C 80 18 153/110 H 98 Room Air 03/23/23 04:03 03/23/23 06:53 03/23/23 06:53 03/23/23 04:03 03/23/23 06:53 03/23/23 06:53 Oxygen Delivery Method Room Air Weight: 102.1 kg Body Mass Index (BMI) 34.2 Lab / Micro Data Result Diagrams: 03/23/23 02:20 03/23/23 02:20 Labs: Laboratory Results - last 24 hr 03/23/23 02:20: WBC 8.0, RBC 4.24 L, Hgb 14.5, Hct 40.8, MCV 96.2 H, MCH 34.2 H, MCHC 35.5, RDW Std Deviation 48.3 H, RDW Coeff of Pati 13.7, Plt Count 244, MPV 10.3, Immature Gran % (Auto) 0.500, Neut % (Auto) 68.0, Lymph % (Auto) 20.4, [place] % (Auto) 8.6, Eos % (Auto) 1.9, Baso % (Auto) 0.6, Absolute Neuts (auto) 5.5, Absolute Lymphs (auto) 1.64, Nucleated RBC % 0 03/23/23 02:20: Sodium 142, Potassium 3.5, Chloride 111 H, Carbon Dioxide 22.0, Anion Gap 9, BUN 11, Creatinine 0.81, Estim Creat Clear Calc 78.58, Est GFR (MDRD) Af Amer 119, Est GFR (MDRD) Non-Af 99, BUN/Creatinine Ratio 13.5, Glucose 93, Calcium 8.6, Total Bilirubin 0.40, AST 23, ALT 22, Alkaline Phosphatase 106, Total Protein 6.9, Albumin 3.1 L, Globulin 3.8, Albumin/Globulin Ratio 0.8 L 03/23/23 02:20: Ethyl Alcohol 5.0 03/23/23 02:20: Phosphorus 2.4 L, Magnesium 2.1 05/22/23 02:40: Urine Opiates Screen NEGATIVE, Urine Methadone Screen NEGATIVE, Ur Barbiturates Screen POSITIVE H, Ur Phencyclidine Scrn NEGATIVE, Ur Amphetamines Screen NEGATIVE, MDMA (Ecstasy) Screen NEGATIVE, U Benzodiazepines Scrn NEGATIVE, Urine Cocaine Screen NEGATIVE, U Cannabinoids Screen NEGATIVE, Ur Drug Screen Comment Physical Exam Const alert Constitutional Narrative: sitting up at the side of the bed. HEENT head/scalp atraumatic and moist oral mucous membranes Assessment & Plan Assessment/Plan (1) Alcohol withdrawal: PLAN: Given interest in sobriety, will initiate and continue on protocol with taper course of Phenobarbital, as needed gabapentin, Catapres, Bentyl, Vistaril, IV fluids, IV antiemetics, Tylenol as needed for pain. Will consult Case management for assistance for transition to next level of rehabilitation care. Mag, phos pending. Pt unsure if he wishes to stay. Encouraged him to discuss with Addiction Med. PLAN: Plan Chronic conditions: * History alcoholic cardiomyopathy: Most recent noted echocardiogram 04/15/2022 with LV systolic function normal, EF 55%, moderately enlarged LA, mildly enlarged RA, mild to moderate MVI, mild to moderate TVI, mild PVI and from records was noted 04/03/2017 with ECHO at that time notable for reduced EF 40-45% with global hypokinesis. * Anxiety and depression/panic disorder: continue patient home aripiprazole and duloxetine * Hypertension: stable continue metoprolol, amlodipine, PRN hydralazine. * Hyperlipidemia: statin * Obesity: Weight loss and lifestyle changes encouraged. * PAF/flutter: Noted history, will continue metoprolol, not chronically anticoagulated given risk. * GERD/gastritis history: We will maintain on famotidine, as needed Mylanta DVT prophylaxis: Given presentation lower risk, encourage ambulation. CODE STATUS: Full code. Greater than 35 minutes of which greater than 50% of time was discussing the patient in regards to his alcohol withdrawal treatment and long-term outlook. Encouraged him to stay and talk with addiction medicine. He was agreeable to that. Charges/Coding Visit Charges Inpatient E&M: 56515 Subs Hosp L2
[2023-03-23] MEDS: Folic Acid 1 MG Tablet PO (08:40)
[2023-03-23] MEDS: Thiamine Hydrochloride 100 MG Tablet PO (08:40)
[2023-03-23] MEDS: ARIPiprazole 5 MG Tablet PO (08:41)
[2023-03-23] MEDS: DULoxetine Hcl 60 MG Capsule PO (08:41)
[2023-03-23] MEDS: Metoprolol Tartrate 100 MG Tablet PO (08:41)
[2023-03-23] MEDS: amLODIPine 5 MG Tablet PO (08:41)
--- NOTE | 2023-03-23 14:05 | CASEMGMT ---
Social Work SW received referral from [facility] addiction therapist as pt is requesting information regarding assisted living. SW met with pt who states he remembers this worker. SW spoke with pt regarding assisted living. SW explained the Assisted Living Waiver program to pt, how the payment works and where the facilities are located. SW had previously made a referral to the [facility] [place] for home care waiver and assisted living waiver program. Pt states he did talk to someone on the phone but they did not do anything but ask some questions on the phone. Pt agreeable for SW to make another referral. Phone call to Tamie at [facility] [place]. Tamie confirms that referrals were received on 02/13 and that pt was called. Screening process was complete over the phone but pt denied needs at that time and full assessment was not completed. SW made another referral for AL waiver program at this time. Tamie also states that pt will be changing from Medicaid to [facility] Medicaid on April 02 and recommended SW phone [facility] and update them on requested for AL waiver. Phone call to [facility] ([phone]) and information provided. SW met with pt and provided written information on AL waiver program and that he should be expecting a phone call from [facility]. Pt understanding. Pt requesting to discharge home at this time. Pt's nurse is aware. PRISCILLA Yin
--- NOTE | 2023-03-23 14:29 | DS.PCM_ITS ---
Providers Date of Admission: 03/23/23 Primary Care Physician: Graciela Ashley DO Reason For Visit: ETOH WITHDRAWL Diagnosis Discharge Diagnosis (1) Alcohol withdrawal: Status: Acute Code(s): F10.939 - Alcohol use, unspecified with withdrawal, unspecified Plan: Given interest in sobriety, will initiate and continue on protocol with taper course of Phenobarbital, as needed gabapentin, Catapres, Bentyl, Vistaril, IV fluids, IV antiemetics, Tylenol as needed for pain. Will consult Case management for assistance for transition to next level of rehabilitation care. Mag, phos pending. Pt unsure if he wishes to stay. Encouraged him to discuss with Addiction Med. Plan Chronic conditions: * History alcoholic cardiomyopathy: Most recent noted echocardiogram 04/15/2022 with LV systolic function normal, EF 55%, moderately enlarged LA, mildly enlarged RA, mild to moderate MVI, mild to moderate TVI, mild PVI and from records was noted 04/03/2017 with ECHO at that time notable for reduced EF 40- 45% with global hypokinesis. * Anxiety and depression/panic disorder: continue patient home aripiprazole and duloxetine * Hypertension: stable continue metoprolol, amlodipine, PRN hydralazine. * Hyperlipidemia: statin * Obesity: Weight loss and lifestyle changes encouraged. * PAF/flutter: Noted history, will continue metoprolol, not chronically anticoagulated given risk. * GERD/gastritis history: We will maintain on famotidine, as needed Mylanta DVT prophylaxis: Given presentation lower risk, encourage ambulation. CODE STATUS: Full code. Greater than 35 minutes of which greater than 50% of time was discussing the patient in regards to his alcohol withdrawal treatment and long-term outlook. Encouraged him to stay and talk with addiction medicine. He was agreeable to that. Medications at Discharge Home Medications metoprolol tartrate 100 mg tablet 100 mg PO BID bp 10/03/19 atorvastatin 40 mg tablet 40 tab PO DAILY cholesterol 05/08/22 duloxetine 60 mg capsule,delayed release 60 cap PO DAILY mood 05/08/22 aripiprazole 5 mg tablet 5 mg PO DAILY mood 05/26/22 folic acid 1 mg tablet 1 mg PO BREAKFAST #30 tabs 11/13/22 thiamine HCl (vitamin B1) 100 mg tablet (Vitamin B-1) 100 mg PO DAILYCM #30 tabs 11/13/22 amlodipine 5 mg tablet 5 mg PO DAILY BP 12/15/22 Hospital Course Operations None Procedures None Summary of Care Provided Minutes Spent on Discharge: 35 Weight / BMI Weight Weight: 102.1 kg Body Mass Index (BMI) 34.2 ABG / Lab / Microbiology Data Result Diagrams: 03/23/23 02:20 03/23/23 02:20 Laboratory: Laboratory Results - last 24 hr 03/23/23 02:20: WBC 8.0, RBC 4.24 L, Hgb 14.5, Hct 40.8, MCV 96.2 H, MCH 34.2 H, MCHC 35.5, RDW Std Deviation 48.3 H, RDW Coeff of Pati 13.7, Plt Count 244, MPV 10.3, Immature Gran % (Auto) 0.500, Neut % (Auto) 68.0, Lymph % (Auto) 20.4, [place] % (Auto) 8.6, Eos % (Auto) 1.9, Baso % (Auto) 0.6, Absolute Neuts (auto) 5.5, Absolute Lymphs (auto) 1.64, Nucleated RBC % 0 03/23/23 02:20: Sodium 142, Potassium 3.5, Chloride 111 H, Carbon Dioxide 22.0, Anion Gap 9, BUN 11, Creatinine 0.81, Estim Creat Clear Calc 78.58, Est GFR (MDRD) Af Amer 119, Est GFR (MDRD) Non-Af 99, BUN/Creatinine Ratio 13.5, Glucose 93, Calcium 8.6, Total Bilirubin 0.40, AST 23, ALT 22, Alkaline Phosphatase 106, Total Protein 6.9, Albumin 3.1 L, Globulin 3.8, Albumin/Globulin Ratio 0.8 L 03/23/23 02:20: Ethyl Alcohol 5.0 03/23/23 02:20: Phosphorus 2.4 L, Magnesium 2.1 03/23/23 02:40: Urine Opiates Screen NEGATIVE, Urine Methadone Screen NEGATIVE, Ur Barbiturates Screen POSITIVE H, Ur Phencyclidine Scrn NEGATIVE, Ur Amphetamines Screen NEGATIVE, MDMA (Ecstasy) Screen NEGATIVE, U Benzodiazepines Scrn NEGATIVE, Urine Cocaine Screen NEGATIVE, U Cannabinoids Screen NEGATIVE, Ur Drug Screen Comment D/C Instructions Discharge Diet: No restrictions Meaningful Use Info Meaningful Use Diagnoses (Choose all that apply): None applicable Discharge Plan Admission Admit Date/Time: 03/23/23 02:59 Primary Reason for Your Visit: alcohol withdrawal Attending Provider: Turner Carl Primary Care Provider: Graciela Ashley Consulting Providers: Aurea Carlton Instructions Additional Instructions / Restrictions: Please return whe you are ready to start alcohol withdrawal treatment. Discharge Orders/Prescriptions Prescriptions: Continued metoprolol tartrate 100 mg tablet 100 mg PO BID duloxetine 60 mg capsule,delayed release(DR/EC) 60 cap PO DAILY atorvastatin 40 mg tablet 40 tab PO DAILY Label Comments: 1 tablet by mouth as directed aripiprazole 5 mg Tablet 5 mg PO DAILY thiamine HCl (vitamin B1) [Vitamin B-1] 100 mg Tablet 100 mg PO DAILYCM Qty: 30 2RF folic acid 1 mg Tablet 1 mg PO BREAKFAST Qty: 30 2RF amlodipine 5 mg tablet 5 mg PO DAILY Referrals / Follow Up: Graciela Ashley, [Primary Care Provider] - Within 2 Weeks Disposition Disposition (needs filled in before D/C Order can be placed): Home, Self Care Charges/Coding Visit Charges Inpatient E&M: 92176 Disch Hosp >30min
== END 2023-03-23 15:04 | disposition home or self-care (01) | DRG 897 ==
LOC: ED 02:45 → MS3 03:04
PROVIDERS: Admitting Provider Family Medicine; Emergency Provider Emergency Medicine; PCP Family Medicine
DX: F10.239 Alcohol dependence with withdrawal, unspecified (principal); I42.6 Alcoholic cardiomyopathy; I48.0 Paroxysmal atrial fibrillation; E78.5 Hyperlipidemia, unspecified; K21.9 Gastro-esophageal reflux disease without esophagitis; I10 Essential (primary) hypertension; K29.70 Gastritis, unspecified, without bleeding; F41.0 Panic disorder [episodic paroxysmal anxiety]; E66.9 Obesity, unspecified; Y90.0 Blood alcohol level of less than 20 mg/100 ml; F32.A Depression, unspecified; Z87.891 Personal history of nicotine dependence; Z68.34 Body mass index [BMI] 34.0-34.9, adult
CPT/HCPCS: 80053; 80307; 82077; 83735; 84100; 85025; 93005; 94640; 99285; J7120; A4216; J2405

== ENCOUNTER 2023-04-04 06:32 | Emergency (ER) | payer MEDICARE, MEDICAID, SELFPAY ==
[2023-04-04 06:33] VITALS: BP 154/102; PULSE 124; RESP 16; TEMP 36.5; O2SAT 99; BMI 34.4
--- NOTE | 2023-04-04 06:56 | EKG12_ITS ---
Test Reason : DETOX Blood Pressure : / mmHG Vent. Rate : 134 BPM Atrial Rate : 000 BPM P-R Int : 000 ms QRS Dur : 082 ms QT Int : 324 ms P-R-T Axes : 000 028 -55 degrees QTc Int : 483 ms Atrial fibrillation with rapid ventricular response Nonspecific T wave abnormality Abnormal ECG Confirmed by AURELIO MEJIA, ALBERTO ([id number]), associate entertainment editor MELVI ALBA ([id number]) on 04/07/2023 8:33:39 AM Referred By: Confirmed By:ALBERTO CAREY MD
[2023-04-04] MEDS: Ondansetron 4 MG/2 ML Vial IV (07:04)
[2023-04-04] MEDS: 0.9% Normal Saline 1,000 ML 999 ML IV (07:04)
[2023-04-04] MEDS: LORazepam 2 MG/ML Syringe IV (07:04)
[2023-04-04 07:11] LABS: Absolute Neutrophil Count 6.6 X10^3/uL (2.0-7.7); Basophil# 0.04 X10^3/uL; Basophil% 0.5 % (0-1); Eosinophil# 0.04 X10^3/uL; Eosinophils% 0.5 % (0-5); Hematocrit 44.2 % (40-54); Hemoglobin 15.4 g/dL (13.0-16.5); Lymphocyte % 13.8 % (19-41); Mean Corp Hgb Conc 34.8 g/dL (32-36); Mean Corpuscular Hgb 34.1 pg (27.0-32.0); Mean Platelet Vol. 9.4 fl (6.2-12.0); Monocyte# 0.74 X10^3/uL; Monocyte% 8.5 % (0-10); NRBC Flagged by Analyzer 0 % (0-5); Neutrophil # 6.62 X10^3/uL (2.7-7.7); Neutrophil % 76.4 % (47-70); Platelet Count 264 K/mm3 (150-450); RBC Distribution Width CV 14.5 % (11.6-14.6); RBC Distribution Width SD 52.5 fl (35.1-43.9); Red Blood Count 4.51 M/mm3 (4.6-6.2); White Blood Count 8.7 K/mm3 (4.4-11.0)
--- NOTE | 2023-04-04 07:14 | EDS_ITS ---
HPI History of Present Illness Chief Complaint: Nausea/Vomiting Informant: patient and EMS Narrative Narrative: Patient is a 72-year-old male with a past medical history of alcohol dependence. He went through detox in January in [place] and more recently was admitted to our facility for detox on March 10 and March 23. Both time she completed detox and after returning home began drinking shortly after. Patient states he drinks beer roughly a case a day and that his beer choices [employer]. He states that he drank last night and passed out at some time and then awoke this morning with nausea and anxiety. He denies any other ingestion other than the alcohol. He states that secondary to the anxiety and nausea he was concerned that withdrawal setting and once again insulin therefore called EMS. [facility] Medical History Alcohol abuse Alcoholic cardiomyopathy Anxiety and depression Atrial flutter, paroxysmal Former tobacco use History of acute alcoholic hepatitis HTN (hypertension) Left atrial enlargement Obesity PAF (paroxysmal atrial fibrillation) Panic disorder Home Medications metoprolol tartrate 100 mg tablet 100 mg PO BID bp 10/03/19 [History Last Taken 11/06/22] atorvastatin 40 mg tablet 40 tab PO DAILY cholesterol 05/08/22 [History Last Taken 11/06/22] duloxetine 60 mg capsule,delayed release 60 cap PO DAILY mood 05/08/22 [History Last Taken Unknown] aripiprazole 5 mg tablet 5 mg PO DAILY mood 05/26/22 [History Last Taken 11/05/22] folic acid 1 mg tablet 1 mg PO BREAKFAST #30 tabs 11/13/22 [Rx Last Taken Unknown] thiamine HCl (vitamin B1) 100 mg tablet (Vitamin B-1) 100 mg PO DAILYCM #30 tabs 11/13/22 [Rx Last Taken Unknown] amlodipine 5 mg tablet 5 mg PO DAILY BP 12/15/22 [History Last Taken Unknown] Allergy/AdvReac Type Severity Reaction Status Date / Time No Known Allergies Allergy Verified 03/23/23 02:02 Family History Mother CVA (cerebral vascular accident) Father Cancer lung cancer Surgical History Hx of cholecystectomy Social History household members: none housing: apartment Smoking Status: Former smoker alcohol intake: current alcohol intake frequency: 3 or more drinks per day details: 24 12 ounce beers daily substance use type: does not use ROS ROS ED Constitutional Constitutional ED: Denies chills or fever(s) Eyes Eyes: Denies change in vision ENT ENT ED: Denies sore throat Cardiovascular Cardiovascular: Reports palpitations and racing heartbeat; Denies chest pain Respiratory/Chest Respiratory/Chest: Denies cough or dyspnea Gastrointestinal Gastrointestinal: Reports nausea; Denies abdominal pain, diarrhea or vomiting Genitourinary Genitourinary ED: Denies dysuria Musculoskeletal Musculoskeletal: Denies myalgias Integumentary Denies rash Neurologic Neurologic: Reports paresthesias; Denies headache(s) Psychiatric Psychiatric: Reports anxiety; Denies suicidal ideation or suicidal thoughts Hematologic/Lymphatic Hematologic/Lymphatic: Denies easy bleeding or easy bruising EXAM Physical Exam Const Vital Signs: 04/04/23 06:33 Temperature 97.7 F L Temperature Source Temporal Pulse Rate 124 H Respiratory Rate 16 Blood Pressure 154/102 H Blood Pressure Mean 119 Pulse Ox 99 Oxygen Delivery Method Room Air Positive well nourished, well developed and obese General Appearance ED: well developed Nutritional Appearance: obese HEENT Reports moist mucous membranes Eyes PERRL and EOMs intact bilaterally General Eye ED: Negative for scleral icterus Neck supple and no JVD Resp normal respiratory effort and clear to auscultation bilaterally Cardio Rate: other Other Details: Tachycardic rate with irregularly irregular rhythm can assess on past medical history of atrial fibrillation GI normal to inspection, nondistended, normoactive bowel sounds, non-tender, non- distended and no masses GI Narrative: Abdomen is soft nontender nondistended with hyperactive bowel sounds no voluntary guarding or rigidity no pulsatile mass or fluid wave Auscultation: hyperactive bowel sounds Palpation: soft Extremity normal to inspection Neuro oriented x3 and CN's II-XII intact bilaterally Sensorium / Orientation: alert Psych Psych Narrative: Patient has a nervous/anxious affect without homicidal or suicidal ideation Skin no rashes or lesions noted General Skin Exam: Negative for jaundice MDM MDM MDM Narrative Medical decision making narrative: Patient presented to the ER hypertensive and tachycardic he is demonstrating severe anxiety with mild agitation and with nausea there is clouding of his s ensorium and tremor present as well based on these finding patient receives a CIWA score of 15. Chart was reviewed and patient has a longstanding history of alcohol abuse with recurrent admissions for detox that he keeps relapsing from once returning home. At this time as the patient is displaying signs of active withdrawal basic blood work will be obtained and he will be treated with IV folic acid and thiamine. He also given IV fluids and Zofran as well as Ativan and Librium secondary to the withdrawal symptoms. The patient at this time does not know if he wants placed back in detox. Therefore after he is treated laboratory studies are resulted he can be reassessed and if detox is wished for once again medicine can be contacted for placement. The patient is timely in A-fib with RVR but has a past medical history of atrial fibrillation and I believe the tachycardia is related to the withdrawal and therefore will not treat the tachycardia until he has had his withdrawal adequately controlled As laboratory studies are still pending the patient will be signed out to the oncoming physician Dr. Badillo who can reassess the patient and discuss about possible admission for detox History & Record Review Discussion w/independent historian: EMS personnel and Patient Lab Data Attestation: I reviewed the patient's lab results. Labs: Laboratory Results - last 24 hr 04/04/23 07:07 WBC 8.7 RBC 4.51 L Hgb 15.4 Hct 44.2 MCV 98.0 H MCH 34.1 H MCHC 34.8 RDW Std Deviation 52.5 H RDW Coeff of Pati 14.5 Plt Count 264 MPV 9.4 Immature Gran % (Auto) 0.300 Neut % (Auto) 76.4 H Lymph % (Auto) 13.8 L [place] % (Auto) 8.5 Eos % (Auto) 0.5 Baso % (Auto) 0.5 Absolute Neuts (auto) 6.6 Absolute Lymphs (auto) 1.20 Nucleated RBC % 0 Discharge Plan Triage Chief Complaint: Nausea/Vomiting ED Provider: Lior Frye Dx/Rx/DC Orders Clinical Impression: Alcohol dependence, Atrial fibrillation, chronic, Alcohol withdrawal Prescriptions: No Action metoprolol tartrate 100 mg tablet 100 mg PO BID duloxetine 60 mg capsule,delayed release(DR/EC) 60 cap PO DAILY atorvastatin 40 mg tablet 40 tab PO DAILY Label Comments: 1 tablet by mouth as directed aripiprazole 5 mg Tablet 5 mg PO DAILY thiamine HCl (vitamin B1) [Vitamin B-1] 100 mg Tablet 100 mg PO DAILYCM Qty: 30 2RF folic acid 1 mg Tablet 1 mg PO BREAKFAST Qty: 30 2RF amlodipine 5 mg tablet 5 mg PO DAILY Primary Care Provider: Graciela Ashley Referrals: Graciela Ashley, [Primary Care Provider] -
[2023-04-04 07:21] LABS: International Normalized Ratio 0.9; Prothrombin Time (Protime)PT. 12.4 SECONDS (11.7-14.9)
[2023-04-04 07:22] LABS: Partial Thromboplast Time 29.3 Seconds (24.1-36.2)
[2023-04-04 07:30] LABS: AST(SGOT) 32 U/L (15-37); Alanine Aminotransfer ALT/SGPT 33 U/L (16-61); Albumin, Serum 3.6 g/dL (3.2-5.0); Alkaline Phosphatase 129 U/L (45-117); Anion Gap 14 (5-15); BUN 12 mg/dL (7-18); BUN/Creat Ratio 13.6 RATIO (10-20); Bilirubin, Direct 0.24 mg/dL (0.00-0.30); Calcium,Total 9.2 mg/dL (8.5-10.1); Chloride 108 mmol/L (98-107); Creatinine, Serum 0.88 mg/dL (0.70-1.30); EST Glomerular Filtration Rate 90 mL/min (>60); Est Glom Filt Rate - Afr Amer 109 mL/min (>60); Estimated Creatinine Clearance 72.33 ml/min; Globulin 4.5 g/dL (2.2-4.2); Glucose 103 mg/dL (74-106); Magnesium 1.9 mg/dL (1.6-2.6); Potassium 4.2 mmol/L (3.5-5.1); Protein, Total 8.1 g/dL (6.4-8.2); Sodium Level 141 mmol/L (136-145)
--- NOTE | 2023-04-04 07:42 | ED.RN ---
pt's oxygen saturation decreased to 79% on room air while sleeping. pt placed on 2L nasal cannula and o2 sats increase to 94%. Dr. Frye notified with verbal order to hold off on giving Librium at this time.
[2023-04-04 08:24] VITALS: BP 187/101; PULSE 85; RESP 16; O2SAT 99
[2023-04-04 08:33] VITALS: BP 147/92; RESP 22
== END 2023-04-04 08:42 | disposition home or self-care (01) ==
PROVIDERS: Emergency Provider Emergency Medicine; PCP Family Medicine; Visit Provider Emergency Medicine
DX: F10.239 Alcohol dependence with withdrawal, unspecified (principal); I42.6 Alcoholic cardiomyopathy; F10.229 Alcohol dependence with intoxication, unspecified; I48.20 Chronic atrial fibrillation, unspecified; I10 Essential (primary) hypertension; Z87.891 Personal history of nicotine dependence; F41.8 Other specified anxiety disorders; Z79.899 Other long term (current) drug therapy; Z90.49 Acquired absence of other specified parts of digestive tract
CPT/HCPCS: 99285; 80048; 80076; 82077; 83735; 85025; 85610; 85730; 93005; A4216; J2405; J3490

== ENCOUNTER 2023-04-05 06:56 | Inpatient (IN) | payer MEDICARE, MEDICAID, SELFPAY ==
[2023-04-05] VITALS (7 sets, daily range): BP systolic 113–167; BP diastolic 86–109; PULSE 58–115; RESP 18–22; TEMP 36.2–36.8; O2SAT 95–100; BMI 34.1; BMI 33.8
--- NOTE | 2023-04-05 07:08 | EX.ED.DYSGE1 ---
HPI History of Present Illness Chief Complaint: Nausea/Vomiting Narrative Narrative: 72-year-old with past medical history of alcohol dependence and chronic atrial fibrillation presents again to the emergency department stating I'm a drunk. He presents stating his last drink was at 10 PM last evening and that he is starting to feel shaky. 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 He has had multiple stents and detox here at the hospital, and went to an inpatient program in [facility] in January. States he drinks beer on a daily basis. He is nauseated but has not vomited. He presents wanting detox. [facility] Medical History Alcohol abuse Alcoholic cardiomyopathy Anxiety and depression Atrial flutter, paroxysmal Former tobacco use History of acute alcoholic hepatitis HTN (hypertension) Left atrial enlargement Obesity PAF (paroxysmal atrial fibrillation) Panic disorder Home Medications metoprolol tartrate 100 mg tablet 100 mg PO BID bp 10/03/19 [History Last Taken 11/06/22] atorvastatin 40 mg tablet 40 tab PO DAILY cholesterol 05/08/22 [History Last Taken 11/06/22] duloxetine 60 mg capsule,delayed release 60 cap PO DAILY mood 05/08/22 [History Last Taken Unknown] aripiprazole 5 mg tablet 5 mg PO DAILY mood 05/26/22 [History Last Taken 11/05/22] folic acid 1 mg tablet 1 mg PO BREAKFAST #30 tabs 11/13/22 [Rx Last Taken Unknown] thiamine HCl (vitamin B1) 100 mg tablet (Vitamin B-1) 100 mg PO DAILYCM #30 tabs 11/13/22 [Rx Last Taken Unknown] amlodipine 5 mg tablet 5 mg PO DAILY BP 12/15/22 [History Last Taken Unknown] Allergy/AdvReac Type Severity Reaction Status Date / Time No Known Allergies Allergy Verified 04/05/23 07:02 Family History Mother CVA (cerebral vascular accident) Father Cancer lung cancer Surgical History Hx of cholecystectomy Social History household members: none housing: apartment Smoking Status: Former smoker alcohol intake: current alcohol intake frequency: 3 or more drinks per day details: 24 12 ounce beers daily substance use type: does not use ROS ROS ED ROS Narrative Constitutional: No fever, no chills. HEENT: No sore throat. No neck pain. No loss of vision. No rhinorrhea. Cardiovascular: No chest pain. No palpitations. No pedal edema. Respiratory: No cough, no shortness of breath. Abdominal: No abdominal pain. Positive nausea. No vomiting. Genitourinary: No dysuria. No hematuria. Musculoskeletal: No myalgias. No arthralgias. Neurologic: No headaches. No dizziness. No lightheadedness. Skin: No rash. No change in color. Psychiatric: No depression. Mild anxiety. EXAM Physical Exam Narrative Exam Narrative: Afebrile. Vital signs noted. HEENT: Normocephalic. Atraumatic. PERRL, EOMI. Neck soft and supple. No point tenderness or step off. Cardiovascular: Regular rate and rhythm. No murmurs, rubs, or gallops appreciated. Respiratory: No tachypnea. Lungs clear to auscultation bilaterally. Gastrointestinal: Abdomen soft, nontender, with normoactive bowel sounds. No rebound or guarding. Neurological: Awake. Alert. Nonfocal, nonlateralizing. Skin: No rash. Normal color. No pallor. Musculoskeletal: No pedal edema. Full range of motion extremities. Const Vital Signs: 04/05/23 06:58 04/05/23 07:43 Temperature 97.1 F L Temperature Source Temporal Pulse Rate 99 Respiratory Rate 18 Blood Pressure 167/104 H Blood Pressure Mean 125 Pulse Ox 99 Oxygen Delivery Method Room Air MDM MDM MDM Narrative Medical decision making narrative: I reviewed the patient's prior ED visits and laboratory work. Medical screening labs will be obtained. He was seen here yesterday, and was signed out to Dr. Jaskaran Badillo. According to the addendum, he was offered inpatient versus outpatient and at that time elected for outpatient treatment as he is affiliated with [facility]. He also had been told that if he stops drinking, that he would go into withdrawal. He states his last drink was 10 PM last evening, approximately 9 hours ago. Currently, he is not tachycardic. I reviewed the patient's laboratory work, he has a normal white count of 8.6, hemoglobin normal at 15.2, hematocrit 45.1, with platelet count 245, his urine for drugs of abuse is positive for barbiturates, which I think is from his previous detox. Alcohol level is 5. CMP is significant for an AST of 44, elevated glucose appropriately with normal anion gap. Patient did become tachycardic and is mildly hypertensive. He does have a history of A-fib. He was administered metoprolol 100 mg orally. As he is becoming more tachycardic, I can also administer phenobarbital. Patient was discussed with Dr. Smith for admission to [facility]. Disposition is admit in stable condition. History & Record Review Discussion w/independent historian: Patient Additional record(s) reviewed:: Prior ED visit and Prior labs Lab Data Attestation: I reviewed the patient's lab results. Labs: Laboratory Results - last 24 hr 04/05/23 04/05/23 04/05/23 07:23 07:35 07:35 WBC 8.6 RBC 4.43 L Hgb 15.2 Hct 45.1 MCV 101.8 H MCH 34.3 H MCHC 33.7 RDW Std Deviation 54.6 H RDW Coeff of Pati 14.5 Plt Count 245 MPV 9.8 Immature Gran % (Auto) 0.500 Neut % (Auto) 73.1 H Lymph % (Auto) 15.3 L [place] % (Auto) 9.6 Eos % (Auto) 1.2 Baso % (Auto) 0.3 Absolute Neuts (auto) 6.3 Absolute Lymphs (auto) 1.31 Nucleated RBC % 0 Sodium Potassium Chloride Carbon Dioxide Anion Gap BUN Creatinine Estim Creat Clear Calc Est GFR (MDRD) Af Amer Est GFR (MDRD) Non-Af BUN/Creatinine Ratio Glucose Calcium Total Bilirubin AST ALT Alkaline Phosphatase Total Protein Albumin Globulin Albumin/Globulin Ratio Urine Opiates Screen NEGATIVE Urine Methadone Screen NEGATIVE Ur Barbiturates Screen POSITIVE H Ur Phencyclidine Scrn NEGATIVE Ur Amphetamines Screen NEGATIVE MDMA (Ecstasy) Screen NEGATIVE U Benzodiazepines Scrn NEGATIVE Urine Cocaine Screen NEGATIVE U Cannabinoids Screen NEGATIVE Ur Drug Screen Comment Ethyl Alcohol 5.0 04/05/23 07:35 WBC RBC Hgb Hct MCV MCH MCHC RDW Std Deviation RDW Coeff of Pati Plt Count MPV Immature Gran % (Auto) Neut % (Auto) Lymph % (Auto) [place] % (Auto) Eos % (Auto) Baso % (Auto) Absolute Neuts (auto) Absolute Lymphs (auto) Nucleated RBC % Sodium 139 Potassium 4.5 Chloride 108 H Carbon Dioxide 21.0 Anion Gap 10 BUN 9 Creatinine 0.89 Estim Creat Clear Calc 71.52 Est GFR (MDRD) Af Amer 107 Est GFR (MDRD) Non-Af 89 BUN/Creatinine Ratio 10.1 Glucose 110 H Calcium 9.4 Total Bilirubin 1.00 AST 44 H ALT 38 Alkaline Phosphatase 131 H Total Protein 7.7 Albumin 3.5 Globulin 4.2 Albumin/Globulin Ratio 0.8 L Urine Opiates Screen Urine Methadone Screen Ur Barbiturates Screen Ur Phencyclidine Scrn Ur Amphetamines Screen MDMA (Ecstasy) Screen U Benzodiazepines Scrn Urine Cocaine Screen U Cannabinoids Screen Ur Drug Screen Comment Ethyl Alcohol Discharge Plan Dx/Rx/DC Orders Clinical Impression: Alcohol withdrawal, Admitted to alcohol detoxification center, Alcohol dependence Disposition Disposition: Acute Care Hospital [facility]
[2023-04-05 07:45] LABS: Absolute Lymphocyte Count 1.31 X10^3/uL (0.83-4.51); Absolute Neutrophil Count 6.3 X10^3/uL (2.0-7.7); Basophil# 0.03 X10^3/uL; Basophil% 0.3 % (0-1); Eosinophils% 1.2 % (0-5); Hematocrit 45.1 % (40-54); Hemoglobin 15.2 g/dL (13.0-16.5); Lymphocyte # 1.31 X10^3/ul (0.83-4.51); Lymphocyte % 15.3 % (19-41); Mean Corp Hgb Conc 33.7 g/dL (32-36); Mean Corpuscular Hgb 34.3 pg (27.0-32.0); Mean Corpuscular Volume 101.8 fL (80-94); Mean Platelet Vol. 9.8 fl (6.2-12.0); Monocyte# 0.82 X10^3/uL; Monocyte% 9.6 % (0-10); NRBC Flagged by Analyzer 0 % (0-5); Neutrophil # 6.28 X10^3/uL (2.7-7.7); Neutrophil % 73.1 % (47-70); Platelet Count 245 K/mm3 (150-450); RBC Distribution Width CV 14.5 % (11.6-14.6); RBC Distribution Width SD 54.6 fl (35.1-43.9); Red Blood Count 4.43 M/mm3 (4.6-6.2); White Blood Count 8.6 K/mm3 (4.4-11.0)
[2023-04-05 07:51] LABS: Amphetamine Urine VISTA NEGATIVE (<1000 ng/mL); Barbiturate Urine VISTA POSITIVE (< 200 ng/mL); Benzodiazepine Urine VISTA NEGATIVE (< 200 ng/mL); Cocaine Urine VISTA NEGATIVE (< 300 ng/mL); Ecstacy Urine VISTA NEGATIVE (< 500 ng/mL); Methadone Urine VISTA NEGATIVE (< 300 ng/mL); PCP Urine VISTA NEGATIVE (< 25 ng/mL); THC Urine VISTA NEGATIVE (< 50 ng/mL); Vista UDS pH Range 5
[2023-04-05 08:10] LABS: ALB/GLOB Ratio 0.8 RATIO (0.9-2.4); AST(SGOT) 44 U/L (15-37); Alanine Aminotransfer ALT/SGPT 38 U/L (16-61); Albumin, Serum 3.5 g/dL (3.2-5.0); Alkaline Phosphatase 131 U/L (45-117); Anion Gap 10 (5-15); BUN 9 mg/dL (7-18); BUN/Creat Ratio 10.1 RATIO (10-20); Calcium,Total 9.4 mg/dL (8.5-10.1); Chloride 108 mmol/L (98-107); Creatinine, Serum 0.89 mg/dL (0.70-1.30); EST Glomerular Filtration Rate 89 mL/min (>60); Est Glom Filt Rate - Afr Amer 107 mL/min (>60); Estimated Creatinine Clearance 71.52 ml/min; Globulin 4.2 g/dL (2.2-4.2); Glucose 110 mg/dL (74-106); Potassium 4.5 mmol/L (3.5-5.1); Protein, Total 7.7 g/dL (6.4-8.2); Sodium Level 139 mmol/L (136-145)
[2023-04-05] MEDS: Metoprolol(XL)Succ 100 MG Tablet PO (08:35)
[2023-04-05] MEDS: Phenobarbital 32.4 MG Tablet PO (08:35)
--- NOTE | 2023-04-05 08:46 | HP.PCM.HOS_ITS ---
HPI - General General Date of Admission: 04/05/23 Date of Service: 04/05/23 Chief Complaint: Desire for detoxification HPI Narrative LANIE DELONG, is a 72 M with past medical history single for paroxysmal A-fib, alcohol dependence with multiple admissions for acute alcohol withdrawal who presents with desire for detoxification. Patient admitted to drinking beer on a daily basis. Last drink was around 10 PM the night prior to his admission. Presented to the emergency department wanting to go sober. Patient did complain of feeling anxious. Also complained of restlessness nausea as well as palpitations. An assessment of alcohol dependence with early alcohol withdrawal was made patient admitted to regular nursing floor for subsequent management [facility] Medical History Alcohol abuse Alcoholic cardiomyopathy Anxiety and depression Atrial flutter, paroxysmal Former tobacco use History of acute alcoholic hepatitis HTN (hypertension) Left atrial enlargement Obesity PAF (paroxysmal atrial fibrillation) Panic disorder Home Medications metoprolol tartrate 100 mg tablet 100 mg PO BID bp 10/03/19 [History Last Taken 11/06/22] atorvastatin 40 mg tablet 40 tab PO DAILY cholesterol 05/08/22 [History Last Taken 11/06/22] duloxetine 60 mg capsule,delayed release 60 cap PO DAILY mood 05/08/22 [History Last Taken Unknown] aripiprazole 5 mg tablet 5 mg PO DAILY mood 05/26/22 [History Last Taken 11/05/22] folic acid 1 mg tablet 1 mg PO BREAKFAST #30 tabs 11/13/22 [Rx Last Taken Unknown] thiamine HCl (vitamin B1) 100 mg tablet (Vitamin B-1) 100 mg PO DAILYCM #30 tabs 11/13/22 [Rx Last Taken Unknown] amlodipine 5 mg tablet 5 mg PO DAILY BP 12/15/22 [History Last Taken Unknown] Allergy/AdvReac Type Severity Reaction Status Date / Time No Known Allergies Allergy Verified 04/05/23 07:02 Family History Mother CVA (cerebral vascular accident) Father Cancer lung cancer Surgical History Hx of cholecystectomy Social History household members: none housing: apartment Smoking Status: Former smoker alcohol intake: current alcohol intake frequency: 3 or more drinks per day details: 24 12 ounce beers daily substance use type: does not use ROS ROS Narrative GENERAL: denies fever, chills, HEENT: denies headache, sinus congestion, RESPIRATORY: denies cough, sputum production, CARDIAC: palpitations, o GASTROINTESTINAL: nausea, , GENITOURINARY: denies dysuria, urgency EXTREMITY: denies swelling MUSCULOSKELETAL: denies current joint pain or tenderness NEUROLOGIC: denies focal numbness, weakness, tingling HEMATOLOGIC: denies easy bruising and/or hemorrhage INTEGUMENT: denies rashes PSYCHIATRIC: Anxious Vital Signs Vital Signs Vital Signs: 04/05/23 06:58 04/05/23 07:43 Temperature 97.1 F L Temperature Source Temporal Pulse Rate 99 Respiratory Rate 18 Blood Pressure 167/104 H Blood Pressure Mean 125 Pulse Ox 99 Oxygen Delivery Method Room Air Weight Weight: 101.9 kg Body Mass Index (BMI) 34.1 Results Lab / Micro Data Result Diagrams: 04/05/23 07:35 04/05/23 07:35 Labs: Laboratory Results - last 24 hr 04/05/23 07:23: Urine Opiates Screen NEGATIVE, Urine Methadone Screen NEGATIVE, Ur Barbiturates Screen POSITIVE H, Ur Phencyclidine Scrn NEGATIVE, Ur Amphetamines Screen NEGATIVE, MDMA (Ecstasy) Screen NEGATIVE, U Benzodiazepines Scrn NEGATIVE, Urine Cocaine Screen NEGATIVE, U Cannabinoids Screen NEGATIVE, Ur Drug Screen Comment 04/05/23 07:35: WBC 8.6, RBC 4.43 L, Hgb 15.2, Hct 45.1, MCV 101.8 H, MCH 34.3 H , MCHC 33.7, RDW Std Deviation 54.6 H, RDW Coeff of Pati 14.5, Plt Count 245, MPV 9.8, Immature Gran % (Auto) 0.500, Neut % (Auto) 73.1 H, Lymph % (Auto) 15.3 L, Buchanan % (Auto) 9.6, Eos % (Auto) 1.2, Baso % (Auto) 0.3, Absolute Neuts (auto) 6.3, Absolute Lymphs (auto) 1.31, Nucleated RBC % 0 04/05/23 07:35: Ethyl Alcohol 5.0 06/04/23 07:35: Sodium 139, Potassium 4.5, Chloride 108 H, Carbon Dioxide 21.0, Anion Gap 10, BUN 9, Creatinine 0.89, Estim Creat Clear Calc 71.52, Est GFR (MDRD) Af Amer 107, Est GFR (MDRD) Non-Af 89, BUN/Creatinine Ratio 10.1, Glucose 110 H, Calcium 9.4, Total Bilirubin 1.00, AST 44 H, ALT 38, Alkaline Phosphatase 131 H, Total Protein 7.7, Albumin 3.5, Globulin 4.2, Albumin/Globulin Ratio 0.8 L Assessment & Plan Assessment/Plan (1) Alcohol dependence: PLAN: Plan Patient is a 72-year-old gentleman with history of chronic alcohol dependence presenting with acute alcohol withdrawal 1. Acute alcohol withdrawal ? Patient has been admitted to regular nursing floor started on phenobarb taper in addition to medications for his symptoms 2. Paroxysmal A-fib ? Patient is on metoprolol did continue patient is not on systemic anticoagulation due to chronic alcohol use 3. Hypertension - Blood pressure controlled, home medications continued with dose adjustment as needed 4. Dyslipidemia -Patient is on statin therapy, continued at home dose 5. Depression with anxiety ? Patient is on duloxetine plan is to restart once his home medications have been reconciled 6. DVT prophylaxis ? SC Lovenox Time spent in the patient's overall evaluation,decision-making process, review of diagnostic data, adjustment of management, discussion with other providers, nursing nursing and ancillary staff involved in patient's care documentation, 55 Minutes Charges/Coding Visit Charges Inpatient E&M: 36127 Init Hosp L2
[2023-04-05] MEDS: Phenobarbital 32.4 MG Tablet 64.8 MG PO ×4 (09:32→21:44)
[2023-04-05] MEDS: Gabapentin 300 MG Capsule PO ×2 (09:33→18:26)
[2023-04-05] MEDS: Ondansetron 8 MG Tablet PO (09:33)
[2023-04-05] MEDS: Acetaminophen 500 MG Tablet PO ×2 (09:33→18:27)
[2023-04-05] MEDS: hydrOXYzine PAM 25 MG Capsule 50 MG PO ×3 (09:33→18:26)
--- NOTE | 2023-04-05 09:49 | NURSING ---
Standing in doorway shortly after arrival from ED. Pt Very anxious, having SOB d/t anxiety. Pt states I just can't quit drinking. I just don't know how. Pt tearful. Tremors noted. BP high. Dr. Smith in to see him. This RN gave prn's and scheduled Phenobarbital already. Will continue to monitor pt and his symptoms.
[2023-04-05] MEDS: Enoxaparin 40 MG/0.4 ML Syringe SC (10:12)
[2023-04-05] MEDS: Loperamide 2 MG Capsule PO (11:27)
[2023-04-05] MEDS: Dicyclomine 10 MG Capsule 20 MG PO ×2 (12:38→18:33)
[2023-04-06 02:48] VITALS: BP 119/88; PULSE 88; RESP 18; TEMP 36.6; O2SAT 97
[2023-04-06] MEDS: Phenobarbital 32.4 MG Tablet 64.8 MG PO ×6 (02:50→21:02)
[2023-04-06 07:24] LABS: Absolute Neutrophil Count 3.5 X10^3/uL (2.0-7.7); Basophil# 0.03 X10^3/uL; Basophil% 0.6 % (0-1); Eosinophil# 0.17 X10^3/uL; Eosinophils% 3.3 % (0-5); Hematocrit 41.2 % (40-54); Hemoglobin 13.7 g/dL (13.0-16.5); Lymphocyte % 15.4 % (19-41); Mean Corp Hgb Conc 33.3 g/dL (32-36); Mean Corpuscular Hgb 34.1 pg (27.0-32.0); Mean Corpuscular Volume 102.5 fL (80-94); Mean Platelet Vol. 9.6 fl (6.2-12.0); Monocyte# 0.71 X10^3/uL; Monocyte% 13.7 % (0-10); NRBC Flagged by Analyzer 0 % (0-5); Neutrophil # 3.47 X10^3/uL (2.7-7.7); Neutrophil % 66.8 % (47-70); Platelet Count 178 K/mm3 (150-450); RBC Distribution Width CV 14.4 % (11.6-14.6); RBC Distribution Width SD 55.1 fl (35.1-43.9); Red Blood Count 4.02 M/mm3 (4.6-6.2); White Blood Count 5.2 K/mm3 (4.4-11.0)
[2023-04-06 08:27] LABS: ALB/GLOB Ratio 0.8 RATIO (0.9-2.4); AST(SGOT) 27 U/L (15-37); Alanine Aminotransfer ALT/SGPT 28 U/L (16-61); Alkaline Phosphatase 107 U/L (45-117); Anion Gap 4 (5-15); BUN 12 mg/dL (7-18); BUN/Creat Ratio 11.8 RATIO (10-20); Calcium,Total 8.9 mg/dL (8.5-10.1); Chloride 109 mmol/L (98-107); Creatinine, Serum 1.02 mg/dL (0.70-1.30); EST Glomerular Filtration Rate 76 mL/min (>60); Est Glom Filt Rate - Afr Amer 92 mL/min (>60); Globulin 3.7 g/dL (2.2-4.2); Glucose 97 mg/dL (74-106); Magnesium 2.2 mg/dL (1.6-2.6); Potassium 3.6 mmol/L (3.5-5.1); Protein, Total 6.7 g/dL (6.4-8.2); Sodium Level 141 mmol/L (136-145)
[2023-04-06 09:25] VITALS: BP 104/78; PULSE 103; RESP 18; TEMP 36.6; O2SAT 97
[2023-04-06 09:27] VITALS: PULSE 103
[2023-04-06] MEDS: amLODIPine 5 MG Tablet PO (09:27)
[2023-04-06] MEDS: Metoprolol Tartrate 100 MG Tablet PO ×2 (09:27→21:01)
[2023-04-06] MEDS: Atorvastatin Calcium 40 MG Tablet PO (09:27)
[2023-04-06] MEDS: DULoxetine Hcl 60 MG Capsule PO (09:27)
[2023-04-06] MEDS: Enoxaparin 40 MG/0.4 ML Syringe SC (09:28)
[2023-04-06] MEDS: Thiamine Hydrochloride 100 MG Tablet PO (09:28)
[2023-04-06] MEDS: Folic Acid 1 MG Tablet PO (09:28)
[2023-04-06 09:30] VITALS: PULSE 103
[2023-04-06 14:17] VITALS: BP 109/77; PULSE 91; RESP 18; TEMP 36.7; O2SAT 97
--- NOTE | 2023-04-06 16:29 | PN_ITS ---
Subjective Subjective Patient seen and examined. He had no complaints. Review of systems otherwise negative. He is being treated for detox from alcohol Objective Data Objective Data Vital Signs: Vital Signs Temp Pulse Resp BP Pulse Ox O2 Del Method 98.1 F 91 18 109/77 97 Room Air 04/06/23 14:17 04/06/23 14:17 04/06/23 14:17 04/06/23 14:17 04/06/23 14:17 04/06/23 14:17 Oxygen Delivery Method Room Air Weight: 222 lb 10.417 oz Body Mass Index (BMI) 33.8 Intake & Output: Intake and Output for Last 24 Hours 04/04/23 04/05/23 04/06/23 23:59 23:59 23:59 Intake Total 720 / 720 Balance 720 / 720 Lab / Micro Data Result Diagrams: 04/06/23 07:00 04/06/23 07:00 Labs: Laboratory Results - last 24 hr 04/06/23 07:00: WBC 5.2, RBC 4.02 L, Hgb 13.7, Hct 41.2, MCV 102.5 H, MCH 34.1 H , MCHC 33.3, RDW Std Deviation 55.1 H, RDW Coeff of Pati 14.4, Plt Count 178, MPV 9.6, Immature Gran % (Auto) 0.200, Neut % (Auto) 66.8, Lymph % (Auto) 15.4 L, Stanley % (Auto) 13.7 H, Eos % (Auto) 3.3, Baso % (Auto) 0.6, Absolute Neuts (auto) 3.5, Absolute Lymphs (auto) 0.80 L, Nucleated RBC % 0 04/06/23 07:00: Sodium 141, Potassium 3.6, Chloride 109 H, Carbon Dioxide 28.0, Anion Gap 4 L, BUN 12, Creatinine 1.02, Estim Creat Clear Calc 62.40, Est GFR (MDRD) Af Amer 92, Est GFR (MDRD) Non-Af 76, BUN/Creatinine Ratio 11.8, Glucose 97, Calcium 8.9, Phosphorus 4.0, Magnesium 2.2, Total Bilirubin 0.60, AST 27, ALT 28, Alkaline Phosphatase 107, Total Protein 6.7, Albumin 3.0 L, Globulin 3.7, Albumin/Globulin Ratio 0.8 L Physical Exam Const alert, oriented x3 and no apparent distress General Appearance: cooperative HEENT normocephalic, head/scalp atraumatic and moist oral mucous membranes Eyes EOMs intact bilaterally Neck no lymphadenopathy, supple and no JVD Lymph Lymphatic: no lymphadenopathy noted and no lymphedema noted Resp normal respiratory effort, normal air movement and clear to auscultation bilaterally Cardio regular rate, regular rhythm, S1 normal heart sound, S2 normal heart sound and no murmurs GI normal to inspection, nondistended, normoactive bowel sounds, soft to palpation, non-tender and non-distended Extremity normal capillary refill, no clubbing, cyanosis or edema and no calf tenderness Skin General Skin Exam: no breakdown Neuro CN's II-XII intact bilaterally, no focal motor deficits, no sensory deficits noted and deep tendon reflexes 2+ bilaterally Motor Exam: strength 5/5 throughout Psych thought process normal and cooperative Appearance: appropriate Assessment & Plan Assessment/Plan (1) Alcohol withdrawal: PLAN: Plan #Acute alcohol withdrawal * on alcohol withdrawal protocol with phenobarbital. Adjunctive meds for symptomatic relief. * On thiamine, folic acid, multivitamin * #Paroxysmal A-fib: On metoprolol. Not on anticoagulation. #Hypertension: On metoprolol and amlodipine #Hyperlipidemia: On Synthroid #Depression with anxiety: On duloxetine DVT prophylaxis: Lovenox Charges/Coding Visit Charges Inpatient E&M: 25901 Subs Hosp L2
[2023-04-06] MEDS: hydrOXYzine PAM 25 MG Capsule 50 MG PO (17:50)
[2023-04-06 21:01] VITALS: BP 116/87; PULSE 89; RESP 18; TEMP 37.1; O2SAT 96
[2023-04-06] MEDS: Gabapentin 300 MG Capsule PO (21:02)
[2023-04-06] MEDS: traZODone 100 MG Tablet PO (21:02)
[2023-04-07] MEDS: Phenobarbital 32.4 MG Tablet 64.8 MG PO ×5 (03:35→17:31)
[2023-04-07 03:38] VITALS: BP 112/73; PULSE 83; RESP 18; TEMP 36.6; O2SAT 96
[2023-04-07 07:56] VITALS: PULSE 90
[2023-04-07] MEDS: Thiamine Hydrochloride 100 MG Tablet PO (07:56)
[2023-04-07] MEDS: Atorvastatin Calcium 40 MG Tablet PO (07:56)
[2023-04-07] MEDS: amLODIPine 5 MG Tablet PO (07:56)
[2023-04-07] MEDS: DULoxetine Hcl 60 MG Capsule PO (07:56)
[2023-04-07] MEDS: Folic Acid 1 MG Tablet PO (07:56)
[2023-04-07] MEDS: Metoprolol Tartrate 100 MG Tablet PO ×2 (07:56→20:19)
[2023-04-07] MEDS: Enoxaparin 40 MG/0.4 ML Syringe SC (07:56)
[2023-04-07] MEDS: hydrOXYzine PAM 25 MG Capsule 50 MG PO (08:00)
[2023-04-07 08:40] VITALS: BP 123/92; PULSE 90; RESP 18; TEMP 36.3; O2SAT 99
--- NOTE | 2023-04-07 11:08 | PN_ITS ---
Subjective Subjective Patient seen and examined. He had no complaints and had an uneventful night. Review of systems otherwise negative. He has remained hemodynamically stable. Objective Data Objective Data Vital Signs: Vital Signs Temp Pulse Resp BP Pulse Ox O2 Del Method 97.4 F L 90 18 123/92 H 99 Room Air 04/07/23 08:40 04/07/23 08:40 04/07/23 08:40 04/07/23 08:40 04/07/23 08:40 04/07/23 08:46 Oxygen Delivery Method Room Air Weight: 222 lb 10.417 oz Body Mass Index (BMI) 33.8 Intake & Output: Intake and Output for Last 24 Hours 04/05/23 04/06/23 04/07/23 23:59 23:59 23:59 Intake Total 720 / 720 440 / 440 120 / 120 Balance 720 / 720 440 / 440 120 / 120 Lab / Micro Data Result Diagrams: 04/06/23 07:00 04/06/23 07:00 Physical Exam Const alert, oriented x3 and no apparent distress General Appearance: cooperative HEENT normocephalic, head/scalp atraumatic and moist oral mucous membranes Eyes EOMs intact bilaterally Neck no lymphadenopathy, supple and no JVD Lymph Lymphatic: no lymphadenopathy noted and no lymphedema noted Resp normal respiratory effort, normal air movement and clear to auscultation bilaterally Cardio regular rate, regular rhythm, S1 normal heart sound, S2 normal heart sound and no murmurs GI normal to inspection, nondistended, normoactive bowel sounds, soft to palpation, non-tender and non-distended Extremity normal capillary refill, no clubbing, cyanosis or edema and no calf tenderness Skin General Skin Exam: no breakdown Neuro CN's II-XII intact bilaterally, no focal motor deficits, no sensory deficits noted and deep tendon reflexes 2+ bilaterally Motor Exam: strength 5/5 throughout Psych thought process normal and cooperative Appearance: appropriate Assessment & Plan Assessment/Plan (1) Alcohol withdrawal: PLAN: Plan #Acute alcohol withdrawal * on alcohol withdrawal protocol with phenobarbital. Adjunctive meds for sympt omatic relief. * On thiamine, folic acid, multivitamin * #Paroxysmal A-fib: On metoprolol. Not on anticoagulation. #Hypertension: On metoprolol and amlodipine #Hyperlipidemia: On Synthroid #Depression with anxiety: On duloxetine DVT prophylaxis: Lovenox Disposition; for likely DC tomorrow Charges/Coding Visit Charges Inpatient E&M: 03842 Subs Hosp L2
[2023-04-07 14:15] VITALS: BP 100/80; PULSE 90; RESP 18; TEMP 36.4; O2SAT 96
[2023-04-07 20:17] VITALS: BP 118/86; PULSE 94; RESP 20; TEMP 36.3; O2SAT 97
[2023-04-07 20:19] VITALS: BP 118/86; PULSE 94
[2023-04-08 00:06] VITALS: BP 122/81; PULSE 79; RESP 20; TEMP 36.6; O2SAT 97
[2023-04-08] MEDS: Phenobarbital 32.4 MG Tablet 64.8 MG PO ×2 (00:11→05:18)
[2023-04-08 05:17] VITALS: BP 109/76; PULSE 60; RESP 20; TEMP 36.4; O2SAT 98
[2023-04-08] MEDS: Enoxaparin 40 MG/0.4 ML Syringe SC (08:19)
[2023-04-08] MEDS: Thiamine Hydrochloride 100 MG Tablet PO (08:19)
[2023-04-08] MEDS: Atorvastatin Calcium 40 MG Tablet PO (08:19)
[2023-04-08] MEDS: amLODIPine 5 MG Tablet PO (08:19)
[2023-04-08] MEDS: DULoxetine Hcl 60 MG Capsule PO (08:19)
[2023-04-08] MEDS: Folic Acid 1 MG Tablet PO (08:19)
[2023-04-08 08:20] VITALS: BP 123/79; PULSE 77
[2023-04-08] MEDS: Metoprolol Tartrate 100 MG Tablet PO (08:20)
--- NOTE | 2023-04-08 08:48 | NURSING ---
Pt voiced interest about vivitrol shot. This [facility].
--- NOTE | 2023-04-08 10:00 | DS.PCM_ITS ---
Providers Date of Admission: 04/05/23 Date of Discharge: 04/08/23 Primary Care Physician: Graciela Ashley DO Reason For Visit: DESIRE FOR DETOXIFICATION FROM ALCOHOL Diagnosis Discharge Diagnosis (1) Alcohol withdrawal: Status: Acute Code(s): F10.939 - Alcohol use, unspecified with withdrawal, unspecified Plan #Acute alcohol withdrawal * on alcohol withdrawal protocol with phenobarbital. Adjunctive meds for symptomatic relief. * On thiamine, folic acid, multivitamin * #Paroxysmal A-fib: On metoprolol. Not on anticoagulation. #Hypertension: On metoprolol and amlodipine #Hyperlipidemia: On Synthroid #Depression with anxiety: On duloxetine DVT prophylaxis: Lovenox Disposition; for likely DC tomorrow Medications at Discharge Home Medications metoprolol tartrate 100 mg tablet 100 mg PO BID bp 10/03/19 atorvastatin 40 mg tablet 40 tab PO DAILY cholesterol 05/08/22 duloxetine 60 mg capsule,delayed release 60 cap PO DAILY mood 05/08/22 amlodipine 5 mg tablet 5 mg PO DAILY BP 12/15/22 folic acid 1 mg tablet 1 mg PO BREAKFAST Check with primary doctor 04/05/23 thiamine HCl (vitamin B1) 100 mg tablet (Vitamin B-1) 100 mg PO DAILYCM Check with primary doctor 04/05/23 Hospital Course Operations None Procedures None Summary of Care Provided Minutes Spent on Discharge: 45 Hospital Course: Patient is 22-year-old male with past medical history as outlined was admitted through the ED on 04/05/2023 for acute alcohol withdrawal. Patient drinks beer on a daily basis and his last beer was around 10 PM the night before admission. He had had multiple admissions for acute alcohol withdrawal and has subsequently relapsed. He was therefore coming in this time for detox again. He admitted to feeling anxious and also complained of restlessness and nausea as well as palpitations. Review of systems otherwise negative. He was admitted and managed for acute alcohol withdrawal. He was started on alcohol withdrawal protocol with phenobarbital. He tolerated the detox process over 3 days. He was discharged home on 04/08/2023. He is to follow-up with PCP as well as 1 AT on outpatient basis. Patient seen and examined prior to discharge. He had no complaints and had an uneventful night. Review of systems otherwise negative. Labs and vitals reviewed. Home medication reviewed and reconciled. Physical Exam Const alert, oriented x3 and no apparent distress General Appearance: cooperative, comfortable and well kempt Orientation / Consciousness: awake Exam Limitations: no limitations HEENT normocephalic, head/scalp atraumatic, hearing grossly normal bilaterally and moist oral mucous membranes Mouth: oral and palatal mucosa normal Eyes PERRL, EOMs intact bilaterally and conjunctivae normal Neck no lymphadenopathy, supple and no JVD Lymph Lymphatic: no lymphadenopathy noted and no lymphedema noted Resp normal respiratory effort, normal air movement and clear to auscultation bilaterally Cardio regular rate, regular rhythm, S1 normal heart sound, S2 normal heart sound and no murmurs GI normal to inspection, nondistended, normoactive bowel sounds, soft to palpation, non-tender and non-distended Extremity normal capillary refill, no clubbing, cyanosis or edema and no calf tenderness Skin no rashes or lesions noted General Skin Exam: no breakdown Neuro oriented x3, CN's II-XII intact bilaterally, moves all extremities, no focal motor deficits, no sensory deficits noted and deep tendon reflexes 2+ bilaterally Sensorium / Orientation: awake Motor Exam: strength 5/5 throughout Psych thought process normal and cooperative Appearance: appropriate Weight / BMI Weight Weight: 222 lb 10.417 oz Body Mass Index (BMI) 33.8 ABG / Lab / Microbiology Data Result Diagrams: 04/06/23 07:00 04/06/23 07:00 D/C Instructions Discharge Diet: Low fat / Low cholesterol Discharge Activity: Return to Normal Activity Weight Bearing Status: Weight bearing as tolerated Call your doctor if you observe: Fever of 101 or Higher, Shortness of breath, Dizziness, Swelling in the ankles and Increased palpitations (irregular heartbeat) Meaningful Use Info Meaningful Use Diagnoses (Choose all that apply): None applicable Discharge Plan Admission Admit Date/Time: 04/05/23 08:21 Primary Reason for Your Visit: acute alcohol withdrawal Attending Provider: Tiffanie Chatman Primary Care Provider: Graciela Ashley Consulting Providers: Edouard Smith Instructions Patient Instructions: Alcohol Withdrawal: What to Expect, ED Withdrawal Alcohol Discharge Orders/Prescriptions Prescriptions: Continued metoprolol tartrate 100 mg tablet 100 mg PO BID duloxetine 60 mg capsule,delayed release(DR/EC) 60 cap PO DAILY atorvastatin 40 mg tablet 40 tab PO DAILY Label Comments: 1 tablet by mouth as directed amlodipine 5 mg tablet 5 mg PO DAILY thiamine HCl (vitamin B1) [Vitamin B-1] 100 mg tablet 100 mg PO DAILYCM folic acid 1 mg tablet 1 mg PO BREAKFAST Referrals / Follow Up: Graciela Ashley DO [Primary Care Provider] - Within 2 Weeks Disposition Disposition (needs filled in before D/C Order can be placed): Home, Self Care Charges/Coding Visit Charges Inpatient E&M: 21264 Disch Hosp >30min
--- NOTE | 2023-04-08 10:30 | PHA.DC.MR ---
Pharmacy Service has performed discharge medication reconciliation for this patient. The patient's discharge medication list was reviewed for discrepancies and discrepancies were resolved. Home Medications metoprolol tartrate 100 mg tablet 100 mg PO BID bp 10/03/19 atorvastatin 40 mg tablet 40 tab PO DAILY cholesterol 05/08/22 duloxetine 60 mg capsule,delayed release 60 cap PO DAILY mood 05/08/22 amlodipine 5 mg tablet 5 mg PO DAILY BP 12/15/22 folic acid 1 mg tablet 1 mg PO BREAKFAST Check with primary doctor 04/05/23 thiamine HCl (vitamin B1) 100 mg tablet (Vitamin B-1) 100 mg PO DAILYCM Check with primary doctor 04/05/23
[2023-04-08 11:15] VITALS: BP 133/86; PULSE 79; RESP 18; TEMP 36.6; O2SAT 97
== END 2023-04-08 12:00 | disposition home or self-care (01) | DRG 897 ==
LOC: ED 08:26 → MS3 09:01
PROVIDERS: Admitting Provider Internal Medicine; Emergency Provider Emergency Medicine; PCP Family Medicine; Visit Provider Student in an Organized Health Care Education/Training Program
DX: F10.239 Alcohol dependence with withdrawal, unspecified (principal); E78.5 Hyperlipidemia, unspecified; I48.0 Paroxysmal atrial fibrillation; F13.10 Sedative, hypnotic or anxiolytic abuse, uncomplicated; F41.8 Other specified anxiety disorders; I10 Essential (primary) hypertension; R73.9 Hyperglycemia, unspecified; Z87.891 Personal history of nicotine dependence; Y90.0 Blood alcohol level of less than 20 mg/100 ml
CPT/HCPCS: 36415; 80048; 80053; 80076; 80307; 82077; 83735; 84100; 85025; 85610; 85730; 93005; 96361; 96365; 96368; 96375; 99285; A4216; J2405; J3490

== ENCOUNTER 2023-04-11 23:37 | Emergency (ER) | payer MEDICARE, MEDICAID, SELFPAY ==
[2023-04-11 23:40] VITALS: BP 153/102; PULSE 62; RESP 16; TEMP 36.1; O2SAT 96; BMI 35.3
[2023-04-12] MEDS: Clindamycin HCl 150 MG Capsule 300 MG PO (00:27)
[2023-04-12] MEDS: Lidocaine 2% /Epi 1:100 (20ml) 20 ML VIAL INFILT (00:30)
--- NOTE | 2023-04-12 01:02 | EX.ED.DYSGE1 ---
HPI History of Present Illness Chief Complaint: Edema Narrative Narrative: Patient is a 72-year-old male with history of hypertension as well as atrial fibrillation and chronic alcohol abuse. He states that there has been no trauma but he has noticed in the last 1 to 2 days increased pain and swelling to the left side of his face. With concern for infection he called EMS and was brought in for evaluation. [facility] Medical History Alcohol abuse Alcoholic cardiomyopathy Anxiety and depression Atrial flutter, paroxysmal Former tobacco use History of acute alcoholic hepatitis HTN (hypertension) Left atrial enlargement Obesity PAF (paroxysmal atrial fibrillation) Panic disorder Home Medications metoprolol tartrate 100 mg tablet 100 mg PO BID bp 10/03/19 [History Last Taken 11/06/22] atorvastatin 40 mg tablet 40 tab PO DAILY cholesterol 05/08/22 [History Last Taken 11/06/22] duloxetine 60 mg capsule,delayed release 60 cap PO DAILY mood 05/08/22 [History Last Taken Unknown] amlodipine 5 mg tablet 5 mg PO DAILY BP 12/15/22 [History Last Taken Unknown] folic acid 1 mg tablet 1 mg PO BREAKFAST Check with primary doctor 04/05/23 [History Last Taken Unknown] thiamine HCl (vitamin B1) 100 mg tablet (Vitamin B-1) 100 mg PO DAILYCM Check with primary doctor 04/05/23 [History Last Taken Unknown] clindamycin HCl 300 mg capsule (Cleocin HCl) 300 mg PO 4X/DAY 10 days #40 CAPSULES 04/12/23 [Rx Last Taken Unknown] Allergy/AdvReac Type Severity Reaction Status Date / Time No Known Allergies Allergy Verified 04/11/23 23:40 Family History Mother CVA (cerebral vascular accident) Father Cancer lung cancer Surgical History Hx of cholecystectomy Social History household members: none housing: apartment Smoking Status: Former smoker alcohol intake: current alcohol intake frequency: 3 or more drinks per day details: 24 12 ounce beers daily substance use type: does not use ROS ROS ED Constitutional Constitutional ED: Denies chills or fever(s) Eyes Eyes: Denies change in vision ENT ENT ED: Reports other Details: Positive facial swelling and dental pain ; Denies sore throat Cardiovascular Cardiovascular: Denies chest pain Respiratory/Chest Respiratory/Chest: Denies cough or dyspnea Gastrointestinal Gastrointestinal: Denies abdominal pain, diarrhea, nausea or vomiting Genitourinary Genitourinary ED: Denies dysuria Musculoskeletal Musculoskeletal: Denies myalgias or neck pain Integumentary Reports abscess; Denies rash Neurologic Neurologic: Denies headache(s) Hematologic/Lymphatic Hematologic/Lymphatic: Denies easy bleeding or easy bruising EXAM Physical Exam Const Vital Signs: 04/11/23 23:40 Temperature 97.0 F L Temperature Source Temporal Pulse Rate 62 Respiratory Rate 16 Blood Pressure 153/102 H Blood Pressure Mean 119 Pulse Ox 96 Oxygen Delivery Method Room Air Positive well nourished and well developed General Appearance ED: well developed HEENT HEENT Narrative: Patient has multiple dental caries present. There is abscess formation noted along the left upper mid gingiva. There is external soft tissue swelling as well with pain on palpation at this site. No signs of ANUG. No airway edema or compromise Eyes PERRL and EOMs intact bilaterally Neck supple Neck Narrative: No brawny edema in the submental space to suggest Vaibhav's angina Resp normal respiratory effort and clear to auscultation bilaterally Cardio regular rhythm Rate: other Other Details: Irregularly irregular rhythm with regular rate consistent with history of atrial fibrillation Extremity normal to inspection Neuro oriented x3 and CN's II-XII intact bilaterally Sensorium / Orientation: alert Psych mental status grossly normal Skin Skin Narrative: Soft tissue swelling to the outer left cheek as documented above without overlying erythema or warmth MDM MDM MDM Narrative Medical decision making narrative: Patient presented to the ER hypertensive but has a history of this and otherwise in no acute distress. Physical exam is most consistent with dental caries leading to dental abscess and he does not have signs of acute necrotizing ulcerative gingivitis or Vaibhav's angina. Therefore do not feel there is need for imaging or laboratory studies. The patient was given a dental block as documented below and following this the abscess was incised and drained. Patient was then placed on antibiotics secondary to the infectious process. However at this time as he does not have signs of systemic infection or respiratory distress there is no need for further evaluation and he is otherwise safe for discharge Patient was given a left superior alveolar dental block using 1.5 mL of 2% lidocaine with epinephrine and 1.5 ml of 0.5% keaton. A #11 blade was then used to make a 1 cm incision over top the area of fluctuance inside the left upper gingiva. A moderate amount of purulent material was expressed. Patient tolerated procedure well without complication History & Record Review Discussion w/independent historian: EMS personnel and Patient Discharge Plan Triage Chief Complaint: Edema ED Provider: Lior Frye Dx/Rx/DC Orders Clinical Impression: Abscess, dental, Hypertension, Chronic a-fib, Alcohol abuse Instructions: Dental Abscess Prescriptions: New clindamycin HCl [Cleocin HCl] 300 mg capsule 300 mg PO 4X/DAY 10 Days Qty: 40 0RF No Action metoprolol tartrate 100 mg tablet 100 mg PO BID duloxetine 60 mg capsule,delayed release(DR/EC) 60 cap PO DAILY atorvastatin 40 mg tablet 40 tab PO DAILY Label Comments: 1 tablet by mouth as directed amlodipine 5 mg tablet 5 mg PO DAILY thiamine HCl (vitamin B1) [Vitamin B-1] 100 mg tablet 100 mg PO DAILYCM folic acid 1 mg tablet 1 mg PO BREAKFAST Primary Care Provider: Graciela Ashley Referrals: Graciela Ashley, DO [Primary Care Provider] - Activity Restrictions/Additional Instructions: Please continue with salt water gargles to help for more infection outside of the dental space and take antibiotics as directed. Follow-up with your dentist for further/repeat evaluation and return to the ER should you have any further concerns Disposition Disposition: Home, Self Care Discharge Date/Time: 04/12/23 01:24
== END 2023-04-12 01:24 | disposition home or self-care (01) ==
PROVIDERS: Emergency Provider Emergency Medicine; PCP Family Medicine; Visit Provider Emergency Medicine
DX: K04.7 Periapical abscess without sinus (principal); I42.6 Alcoholic cardiomyopathy; I48.20 Chronic atrial fibrillation, unspecified; Z87.891 Personal history of nicotine dependence; F10.10 Alcohol abuse, uncomplicated; I10 Essential (primary) hypertension; Z79.899 Other long term (current) drug therapy; F41.8 Other specified anxiety disorders; Z90.49 Acquired absence of other specified parts of digestive tract
CPT/HCPCS: 10060; 99284

== ENCOUNTER 2023-04-21 04:24 | Inpatient (IN) | payer MEDICARE, MEDICAID, SELFPAY ==
[2023-04-21] VITALS (15 sets, daily range): BP systolic 117–149; BP diastolic 79–105; PULSE 74–114; RESP 16–25; TEMP 36–36.9; O2SAT 95–100; BMI 33.7
--- NOTE | 2023-04-21 04:49 | EX.ED.DYSGE1 ---
HPI History of Present Illness Chief Complaint: Nausea/Vomiting Informant: patient and EMS Narrative Narrative: Brought in by EMS significant nausea awakening at midnight. No vomiting. No abdominal pain. History of similar in the past last time 2 weeks ago. He states he been eating multiply for similar improved with medications. States last time they had difficulty with IVs was given oral medicines and it helped. No chest pains. No urinary symptoms. Shortly after initial evaluation, nurse reported patient is having diarrhea, he is requesting detox for alcohol. Reviewing records he was admitted for 3 days from the fourth to the seventh for alcohol withdrawal symptoms. He was discharged with plan follow-up with 180, he states he did go for couple visits then relapsed. He drinks beer up to 10 cans a day. He states he wakes up without any tremors however drink states he feels better. States when he does not drink he does get nauseated and have diarrhea. Denies any withdrawal seizures in the past. Denies any recreational drug use. Denies suicidal or homicidal ideations. Prior similar symptoms: Yes PFSH [facility] Medical History Admitted to alcohol detoxification center Alcohol abuse Alcohol dependence Alcoholic cardiomyopathy Anxiety and depression Atrial flutter, paroxysmal Former tobacco use History of acute alcoholic hepatitis HTN (hypertension) Left atrial enlargement Obesity PAF (paroxysmal atrial fibrillation) Panic disorder Home Medications metoprolol tartrate 100 mg tablet 100 mg PO BID bp 10/03/19 [History Last Taken 11/06/22] atorvastatin 40 mg tablet 40 tab PO DAILY cholesterol 05/08/22 [History Last Taken 11/06/22] duloxetine 60 mg capsule,delayed release 60 cap PO DAILY mood 05/08/22 [History Last Taken Unknown] amlodipine 5 mg tablet 5 mg PO DAILY BP 12/15/22 [History Last Taken Unknown] folic acid 1 mg tablet 1 mg PO BREAKFAST Check with primary doctor 04/05/23 [History Last Taken Unknown] thiamine HCl (vitamin B1) 100 mg tablet (Vitamin B-1) 100 mg PO DAILYCM Check with primary doctor 04/05/23 [History Last Taken Unknown] clindamycin HCl 300 mg capsule (Cleocin HCl) 300 mg PO 4X/DAY 10 days #40 CAPSULES 04/12/23 [Rx Last Taken Unknown] Allergy/AdvReac Type Severity Reaction Status Date / Time No Known Allergies Allergy Verified 06/10/23 23:40 Family History Mother CVA (cerebral vascular accident) Father Cancer lung cancer Surgical History Hx of cholecystectomy Social History household members: none housing: apartment Smoking Status: Former smoker alcohol intake: current alcohol intake frequency: 3 or more drinks per day details: 24 12 ounce beers daily substance use type: does not use ROS ROS ED Constitutional Constitutional ED: Denies chills, fever(s) or sweats Eyes Eyes: Denies change in vision ENT ENT ED: Denies dysphagia or sore throat Cardiovascular Cardiovascular: Denies chest pain, leg edema, palpitations or racing heartbeat Respiratory/Chest Respiratory/Chest: Denies cough, dyspnea or dyspnea on exertion Gastrointestinal Gastrointestinal: Reports diarrhea and nausea; Denies abdominal pain or vomiting Genitourinary Genitourinary ED: Denies dysuria, hematuria or urinary frequency Musculoskeletal Musculoskeletal: Denies back pain, extremity pain or neck pain Integumentary Denies rash or wounds Neurologic Neurologic: Denies headache(s), paresthesias or weakness EXAM Physical Exam Const Vital Signs: 04/21/23 04:26 04/21/23 04:28 04/21/23 06:14 Temperature 97.5 F L 97.5 F L 96.8 F L Temperature Source Temporal Temporal Temporal Pulse Rate 78 114 H 90 Respiratory Rate 18 18 25 H Blood Pressure 137/81 H 141/105 H 145/79 H Blood Pressure Mean 99 117 101 Blood Pressure Source Monitor Blood Pressure Position Semi-Fowlers Blood Pressure Location Right Arm Pulse Ox 97 97 97 Oxygen Delivery Method Room Air Room Air Room Air Positive well nourished and well developed General Appearance ED: well developed and NAD HEENT Reports moist mucous membranes normocephalic and atraumatic Eyes PERRL, EOMs intact bilaterally and conjunctivae normal General Eye ED: Yes normal appearance of both eyes Neck no lymphadenopathy and supple General: Negative for tenderness Chest Wall Chest: Negative for tenderness Resp normal respiratory effort and normal air movement Effort and Inspection: symmetric chest movement; Negative for respiratory distress Cardio regular rhythm and no murmurs Rate: tachycardic Peripheral Pulses: pulses 2+ throughout GI normal to inspection, nondistended, normoactive bowel sounds and non-tender GI Narrative: Negative Owens's or McBurney's tenderness. Palpation: Negative for guarding or rebound tenderness present Back/Spine no CVA tenderness and no thoracic nor lumbar tenderness Extremity normal to inspection General Extremety ED: Negative for edema or tenderness General Extremity: Negative for edema Neuro oriented x3 and no sensory deficits noted Sensorium / Orientation: awake and alert Skin no rashes or lesions noted and no wounds MDM MDM MDM Narrative Medical decision making narrative: Interventions / MDM: Differential diagnosis: Alcohol dependence, alcohol withdrawal Diagnosis considered but do not suspect: N/A My EKG interpretation: A-fib at 101, no ST or T wave changes Imaging independently reviewed and interpreted by myself: N/A External documents reviewed: N/A Test considered but not ordered:N/A ED course: Presented with increasing nausea diarrhea. He initially reported difficult stick therefore oral Zofran was given with improving symptoms. However shortly after requesting alcohol detox, therefore laboratory studies were obtained. Re-evaluation: stable, alcohol. Labs stable. Discussed with hospitalist Dr. Gonzalez for admission. Disposition discussed with patient/family/significant other: Patient Case discussed with consulting clinician: Hospitalist This note was generated with [employer] dictation software. It may contain incorrect words, spelling, and punctuation that were not noted in checking the note before signing. Lab Data Labs: Laboratory Results - last 24 hr 04/21/23 04/21/23 04/21/23 05:49 05:49 05:49 WBC 7.4 RBC 4.74 Hgb 16.1 Hct 46.0 MCV 97.0 H MCH 34.0 H MCHC 35.0 RDW Std Deviation 50.8 H RDW Coeff of Pati 14.1 Plt Count 345 MPV 9.9 Immature Gran % (Auto) 0.300 Neut % (Auto) 71.6 H Lymph % (Auto) 16.0 L Robertson % (Auto) 9.8 Eos % (Auto) 1.5 Baso % (Auto) 0.8 Absolute Neuts (auto) 5.3 Absolute Lymphs (auto) 1.19 Nucleated RBC % 0 Sodium 139 Potassium 4.3 Chloride 107 Carbon Dioxide 22.0 Anion Gap 10 BUN 11 Creatinine 0.85 Estim Creat Clear Calc 74.88 Est GFR (MDRD) Af Amer 114 Est GFR (MDRD) Non-Af 94 BUN/Creatinine Ratio 13.0 Glucose 90 Calcium 9.2 Total Bilirubin 0.70 AST 109 H ALT 101 H Alkaline Phosphatase 121 H Total Protein 7.4 Albumin 3.4 Globulin 4.0 Albumin/Globulin Ratio 0.8 L Ethyl Alcohol < 3.0 Discharge Plan Dx/Rx/DC Orders Clinical Impression: Alcohol dependence, Atrial fibrillation, Nausea Disposition Disposition: Acute Care Hospital [facility] Discharge Date/Time: 04/21/23 07:28
[2023-04-21] MEDS: Ondansetron ODT 4 MG Tablet 8 MG PO (05:09)
[2023-04-21 05:54] LABS: Absolute Lymphocyte Count 1.19 X10^3/uL (0.83-4.51); Absolute Neutrophil Count 5.3 X10^3/uL (2.0-7.7); Basophil# 0.06 X10^3/uL; Basophil% 0.8 % (0-1); Eosinophil# 0.11 X10^3/uL; Eosinophils% 1.5 % (0-5); Hemoglobin 16.1 g/dL (13.0-16.5); Lymphocyte # 1.19 X10^3/ul (0.83-4.51); Mean Platelet Vol. 9.9 fl (6.2-12.0); Monocyte# 0.73 X10^3/uL; Monocyte% 9.8 % (0-10); NRBC Flagged by Analyzer 0 % (0-5); Neutrophil # 5.33 X10^3/uL (2.7-7.7); Neutrophil % 71.6 % (47-70); Platelet Count 345 K/mm3 (150-450); RBC Distribution Width CV 14.1 % (11.6-14.6); RBC Distribution Width SD 50.8 fl (35.1-43.9); Red Blood Count 4.74 M/mm3 (4.6-6.2); White Blood Count 7.4 K/mm3 (4.4-11.0)
--- NOTE | 2023-04-21 06:00 | PCM.HP.STD ---
HPI - General General Date of Admission: 04/21/23 Date of Service: 04/21/23 Chief Complaint: Desire for alcohol detoxification HPI Narrative LANIE DELONG, is a 72 M with a significant history of atrial fibrillation and alcoholism who presented to the emergency department originally stating that he was at the ED for diarrhea that began the day before presentation and nausea that he had when he woke up from sleep on the morning of the day of presentation. Later on while at the ED he stated that his symptoms is likely from alcoholism and wants detoxification. Of note patient was at her alcohol detox program from 04/05/2023 to 04/12/2023. After discharge he followed with 1 a day for about 2 times and then relapsed. Reportedly he drinks about 10 cans of tall beers each day. He has been drinking for a total of about 55 years. He reports withdrawal symptoms of tremors as well. Patient has history of paroxysmal A-fib in emergency department he was found partly in A-fib and alert times sinus tachycardia. [facility] Medical History Admitted to alcohol detoxification center Alcohol abuse Alcohol dependence Alcoholic cardiomyopathy Anxiety and depression Atrial flutter, paroxysmal Former tobacco use History of acute alcoholic hepatitis HTN (hypertension) Left atrial enlargement Obesity PAF (paroxysmal atrial fibrillation) Panic disorder Home Medications metoprolol tartrate 100 mg tablet 100 mg PO BID bp 10/03/19 [History Last Taken 11/06/22] atorvastatin 40 mg tablet 40 tab PO DAILY cholesterol 05/08/22 [History Last Taken 11/06/22] duloxetine 60 mg capsule,delayed release 60 cap PO DAILY mood 05/08/22 [History Last Taken Unknown] amlodipine 5 mg tablet 5 mg PO DAILY BP 12/15/22 [History Last Taken Unknown] folic acid 1 mg tablet 1 mg PO BREAKFAST Check with primary doctor 04/05/23 [History Last Taken Unknown] thiamine HCl (vitamin B1) 100 mg tablet (Vitamin B-1) 100 mg PO DAILYCM Check with primary doctor 04/05/23 [History Last Taken Unknown] clindamycin HCl 300 mg capsule (Cleocin HCl) 300 mg PO 4X/DAY 10 days #40 CAPSULES 04/12/23 [Rx Last Taken Unknown] Allergy/AdvReac Type Severity Reaction Status Date / Time No Known Allergies Allergy Verified 04/11/23 23:40 Family History Mother CVA (cerebral vascular accident) Father Cancer lung cancer Surgical History Hx of cholecystectomy Social History household members: none housing: apartment Smoking Status: Former smoker alcohol intake: current alcohol intake frequency: 3 or more drinks per day details: 24 12 ounce beers daily substance use type: does not use ROS ROS Narrative Pertinent positives and pertinent negatives as noted in HPI. All other systems were reviewed and are negative Vital Signs Vital Signs Vital Signs: 04/21/23 04:26 04/21/23 04:28 Temperature 97.5 F L 97.5 F L Temperature Source Temporal Temporal Pulse Rate 78 114 H Respiratory Rate 18 18 Blood Pressure 137/81 H 141/105 H Blood Pressure Mean 99 117 Blood Pressure Source Monitor Blood Pressure Position Semi-Fowlers Blood Pressure Location Right Arm Pulse Ox 97 97 Oxygen Delivery Method Room Air Room Air Weight Weight: 100.8 kg Body Mass Index (BMI) 33.7 Physical Exam Narrative Physical exam: General: Well-nourished, well-developed. Head: Normocephalic, atraumatic, no tenderness Eyes: Vision is grossly intact. EOMI ENT, no trauma, moist mucous membranes, no rhinorrhea Neck: Nontender, No thyromegaly. CVS: Regular rate and rhythm. S1-S2 present. No murmur, gallop or rub. Respiratory : clear to auscultation bilaterally, chest wall nontender Abdomen: Soft, nontender, nondistended, normal bowel sounds, no masses : Deferred Back: Nontender, no CVA tenderness, no midline spinal tenderness, deformities, step-offs Extremities: Nontender full range of motion, no trauma Skin: Normal color, no trauma, abrasions Neuro: Alert, oriented, tremors. Cranial nerves II through XII grossly intact. Psychiatry: Anxiety Results Lab / Micro Data Result Diagrams: 04/21/23 05:49 04/21/23 05:49 Labs: Laboratory Results - last 24 hr 04/21/23 05:49: WBC 7.4, RBC 4.74, Hgb 16.1, Hct 46.0, MCV 97.0 H, MCH 34.0 H, MCHC 35.0, RDW Std Deviation 50.8 H, RDW Coeff of Pati 14.1, Plt Count 345, MPV 9.9, Immature Gran % (Auto) 0.300, Neut % (Auto) 71.6 H, Lymph % (Auto) 16.0 L, [place] % (Auto) 9.8, Eos % (Auto) 1.5, Baso % (Auto) 0.8, Absolute Neuts (auto) 5.3, Absolute Lymphs (auto) 1.19, Nucleated RBC % 0 Assessment & Plan Assessment/Plan (1) History of hypertension: (2) Desire for detoxification: (3) Alcohol dependence: (4) Alcohol withdrawal: QUALIFIERS: Complication of substance-induced condition: uncomplicated Qualified Code(s): F10.230 - Alcohol dependence with withdrawal, uncomplicated PLAN: Plan Alcohol dependence and desire for detoxification Patient will be started on phenobarbital and other adjunctive medications: Gabapentin as needed; dicyclomine as needed; Vistaril as needed; Imodium as needed; trazodone as needed; Zofran as needed; scheduled thiamine; and schedule folic acid. Monitor CIWA score Paroxysmal A-fib Chronic Not on anticoagulation. Likely secondary to alcoholism as the patient is at risk for fall. Admit to progressive care unit while being detox. DVT prophylaxis Low risk Encourage to ambulate Charges/Coding Visit Charges Inpatient E&M: 19044 Init Hosp L2
[2023-04-21 06:12] LABS: ALB/GLOB Ratio 0.8 RATIO (0.9-2.4); AST(SGOT) 109 U/L (15-37); Alanine Aminotransfer ALT/SGPT 101 U/L (16-61); Albumin, Serum 3.4 g/dL (3.2-5.0); Alkaline Phosphatase 121 U/L (45-117); Anion Gap 10 (5-15); BUN 11 mg/dL (7-18); Calcium,Total 9.2 mg/dL (8.5-10.1); Chloride 107 mmol/L (98-107); Creatinine, Serum 0.85 mg/dL (0.70-1.30); EST Glomerular Filtration Rate 94 mL/min (>60); Est Glom Filt Rate - Afr Amer 114 mL/min (>60); Estimated Creatinine Clearance 74.88 ml/min; Glucose 90 mg/dL (74-106); Potassium 4.3 mmol/L (3.5-5.1); Protein, Total 7.4 g/dL (6.4-8.2); Sodium Level 139 mmol/L (136-145)
[2023-04-21 06:17] LABS: Alcohol, Blood (Medical)-Serum < 3.0 mg/dL
--- NOTE | 2023-04-21 06:36 | NURSING ---
pcu agyepong alcohol dependence, atrial fib
[2023-04-21 07:25] LABS: Amphetamine Urine VISTA NEGATIVE (<1000 ng/mL); Barbiturate Urine VISTA POSITIVE (< 200 ng/mL); Benzodiazepine Urine VISTA NEGATIVE (< 200 ng/mL); Cocaine Urine VISTA NEGATIVE (< 300 ng/mL); Ecstacy Urine VISTA NEGATIVE (< 500 ng/mL); Methadone Urine VISTA NEGATIVE (< 300 ng/mL); PCP Urine VISTA NEGATIVE (< 25 ng/mL); THC Urine VISTA NEGATIVE (< 50 ng/mL); Vista UDS pH Range 5
--- NOTE | 2023-04-21 07:49 | PCM.PN.HOSP ---
Reason for Visit Reason for Visit: Nausea Subjective Subjective Mr. Mccabe is a 72-year-old white male who is well-known to this institution for multiple admissions for alcohol detox. His detox admissions are typically complicated with delirium at about day 3. He presented early this morning to the emergency department with nausea. He had no vomiting or abdominal pain. Shortly after initial evaluation the patient developed diarrhea and was requesting detox for alcohol. He was just recently discharged after a 3-day stay from 04/05/2023 through 04/08/2023 for alcohol detox and was planned to follow-up with 180 at that time. He reported he went to a couple visits at [facility] and then relapsed. He drinks up to 10 cans of beer a day. He felt that his symptoms on presentation were likely related to his alcoholism and that is when he decided he wanted detox. He has been drinking for 55 years. He was also noted to be in A-fib with RVR in the emergency department. He does have a history of PAF and is treated with metoprolol. He is not fully anticoagulated because of his history of alcohol abuse and risk of falls. Heart rates are improving after his beta-sandra was given and he is now 87. Max documented heart rate was 114. No current issues. 180 did evaluate the patient and he has started coming to counseling so he is making slow progress with results to his alcoholism. Objective Data Objective Data Vital Signs: Vital Signs Temp Pulse Resp BP Pulse Ox O2 Del Method 96.8 F L 106 H 24 H 146/99 H 96 Room Air 04/21/23 06:14 04/21/23 06:25 04/21/23 06:25 04/21/23 06:25 04/21/23 06:25 04/21/23 06:25 Oxygen Delivery Method Room Air Weight: 100.8 kg Body Mass Index (BMI) 33.7 Lab / Micro Data Result Diagrams: 04/21/23 05:49 04/21/23 05:49 Labs: Laboratory Results - last 24 hr 04/21/23 05:49: WBC 7.4, RBC 4.74, Hgb 16.1, Hct 46.0, MCV 97.0 H, MCH 34.0 H, MCHC 35.0, RDW Std Deviation 50.8 H, RDW Coeff of Pati 14.1, Plt Count 345, MPV 9.9, Immature Gran % (Auto) 0.300, Neut % (Auto) 71.6 H, Lymph % (Auto) 16.0 L, Schley % (Auto) 9.8, Eos % (Auto) 1.5, Baso % (Auto) 0.8, Absolute Neuts (auto) 5.3, Absolute Lymphs (auto) 1.19, Nucleated RBC % 0 04/21/23 05:49: Sodium 139, Potassium 4.3, Chloride 107, Carbon Dioxide 22.0, Anion Gap 10, BUN 11, Creatinine 0.85, Estim Creat Clear Calc 74.88, Est GFR (MDRD) Af Amer 114, Est GFR (MDRD) Non-Af 94, BUN/Creatinine Ratio 13.0, Glucose 90, Calcium 9.2, Total Bilirubin 0.70, AST 109 H, ALT 101 H, Alkaline Phosphatase 121 H, Total Protein 7.4, Albumin 3.4, Globulin 4.0, Albumin/Globulin Ratio 0.8 L 04/21/23 05:49: Ethyl Alcohol < 3.0 04/21/23 06:55: Urine Opiates Screen NEGATIVE, Urine Methadone Screen NEGATIVE, Ur Barbiturates Screen POSITIVE H, Ur Phencyclidine Scrn NEGATIVE, Ur Amphetamines Screen NEGATIVE, MDMA (Ecstasy) Screen NEGATIVE, U Benzodiazepines Scrn NEGATIVE, Urine Cocaine Screen NEGATIVE, U Cannabinoids Screen NEGATIVE, Ur Drug Screen Comment Assessment & Plan Assessment/Plan (1) Alcohol dependence: (2) Atrial fibrillation: (3) Nausea: (4) Desire for detoxification: (5) Alcoholic hepatitis: PLAN: Plan Alcohol abuse with acute alcohol withdrawal -Drinking 10 tall boys daily -phenobarbital taper -Thiamine and folate -Supportive medications for withdrawal symptom management -Consultation to 180 Alcoholic hepatitis -AST is 109 -ALT is 101 -Anticipate these should normalize with alcohol cessation -This is a typical pattern for his LFTs on presentation Nausea/diarrhea -If persists despite treatment for his alcohol withdrawal we will pursue further work-up History of alcoholic cardiomyopathy -Last echocardiogram from 04/15/2022 showed an EF of 55% with a moderately enlarged left atrium and a mildly enlarged right atrium -Continue home metoprolol Hyperlipidemia -Continue home atorvastatin Paroxysmal atrial fibrillation -Currently with some mild RVR -Continue metoprolol 100 mg twice daily -Patient was previously on apixaban but discontinued secondary to his chronic alcohol use and risk for falls and GI bleed -Likely induced by his alcohol use -I would anticipate him converting back in normal sinus rhythm once he toxicity from alcohol has improved and we will monitor on him telemetry for now with no further intervention Depression -Continue home duloxetine History of tobacco abuse -Remote -Encourage continued cessation DVT prophylaxis -Low risk -Encourage frequent and early ambulation Obesity -BMI 33.8 -Complicates treatment, prognosis, outcomes CODE STATUS -Full code
[2023-04-21] MEDS: Metoprolol Tartrate 100 MG Tablet PO ×2 (08:15→21:29)
[2023-04-21] MEDS: amLODIPine 5 MG Tablet PO (08:15)
[2023-04-21] MEDS: Gabapentin 300 MG Capsule PO (09:46)
[2023-04-21] MEDS: hydrOXYzine PAM 25 MG Capsule 50 MG PO (09:46)
[2023-04-21] MEDS: Atorvastatin Calcium 40 MG Tablet PO (09:49)
[2023-04-21] MEDS: Ondansetron 8 MG Tablet PO (09:50)
[2023-04-21] MEDS: Phenobarbital 32.4 MG Tablet PO ×4 (10:12→21:29)
--- NOTE | 2023-04-21 10:45 | ADDICTION ---
This insurance underwriter sales met with PT to conduct ASAM, MSE, AUDIT assessments and to plan for d/c. PT A+Ox4 and participated actively. All assessments completed and placed in PT's chart. This pt has been through detox several times since November 02, 2022. Pt has made (slow) progress towards recovery. Pt has followed up with his therapist at [facility], he telephones TW to give updates and has taken his alcohol use from the better part of a case of beer down to up to 10 beers. Pt was tearful when TW walked into the pt's room and reports that he doesn't know what to do next. We discussed different ways to continue this progression. PT plans to f/u with [facility] for follow-up treatment services. PT will need transportation post d/c from [facility].
[2023-04-21] MEDS: DULoxetine Hcl 60 MG Capsule PO (12:47)
--- NOTE | 2023-04-21 15:47 | CHAPLAIN ---
Type of Pastoral Visit _x__ Initial Visit ___ Follow-up Visit ___ On-call Visit ___ General Patient Visit ___ Spiritual Assessment ___ Family Conference ___ Bereavement ___ Rapid Response ___ Code Blue ___ Other (describe below) Pastoral Care Referral From _x__ Patient ___ Family ___ Nurse ___ Physician ___ Car Oiler ___ Door Repairman ___ Other (describe below) Sacrament/Intervention ___ Active listening ___ Anointing ___ Shinto ___ Bereavement ___ Communion ___ Yaneth exploration ___ ___ Life review _x__ Prayer ___ Reconciliation ___ Sacrament of Sick _x__ Supportive presence ___ Wedding ___ Other (describe below) Pastoral Comments patient is resting but awakens easily to his name; pt states that he is tired but is thankful for offer of support and would welcome a prayer; pt given offer of future support as desired
[2023-04-22] VITALS (10 sets, daily range): BP systolic 108–134; BP diastolic 78–111; PULSE 72–90; RESP 12–18; TEMP 36.4–37.1; O2SAT 96–99
[2023-04-22] MEDS: Phenobarbital 32.4 MG Tablet PO ×6 (02:38→20:45)
[2023-04-22 06:21] LABS: ALB/GLOB Ratio 0.9 RATIO (0.9-2.4); AST(SGOT) 81 U/L (15-37); Alanine Aminotransfer ALT/SGPT 93 U/L (16-61); Alkaline Phosphatase 103 U/L (45-117); Anion Gap 6 (5-15); BUN 12 mg/dL (7-18); BUN/Creat Ratio 13.8 RATIO (10-20); Calcium,Total 8.5 mg/dL (8.5-10.1); Chloride 109 mmol/L (98-107); Creatinine, Serum 0.87 mg/dL (0.70-1.30); EST Glomerular Filtration Rate 91 mL/min (>60); Est Glom Filt Rate - Afr Amer 111 mL/min (>60); Estimated Creatinine Clearance 73.16 ml/min; Globulin 3.3 g/dL (2.2-4.2); Glucose 108 mg/dL (74-106); Magnesium 1.9 mg/dL (1.6-2.6); Potassium 3.8 mmol/L (3.5-5.1); Protein, Total 6.3 g/dL (6.4-8.2); Sodium Level 141 mmol/L (136-145)
[2023-04-22 06:25] LABS: Phosphorus 3.4 mg/dL (2.5-4.9)
[2023-04-22] MEDS: Thiamine Hydrochloride 100 MG Tablet PO (08:53)
[2023-04-22] MEDS: Folic Acid 1 MG Tablet PO (08:53)
[2023-04-22] MEDS: DULoxetine Hcl 60 MG Capsule PO (08:53)
[2023-04-22] MEDS: amLODIPine 5 MG Tablet PO (08:53)
[2023-04-22] MEDS: Atorvastatin Calcium 40 MG Tablet PO (08:54)
[2023-04-22] MEDS: Metoprolol Tartrate 100 MG Tablet PO ×2 (08:54→20:45)
--- NOTE | 2023-04-22 12:11 | PCM.PN.HOSP ---
Reason for Visit Reason for Visit: Alcohol detox Subjective Subjective Patient states she is feeling well today. Heart rates are controlled but still in A-fib. No issues overnight. Patient states he is restless and bored and anxious to go. Per discussion with 180 he should be able to go tomorrow as long as he is medically stable and has an appointment to follow-up tomorrow. Objective Data Objective Data Vital Signs: Vital Signs Temp Pulse Resp BP Pulse Ox O2 Del Method 97.7 F L 89 18 108/78 98 Room Air 04/22/23 08:50 04/22/23 08:54 04/22/23 08:50 04/22/23 08:54 04/22/23 08:50 04/22/23 08:50 Oxygen Delivery Method Room Air Weight: 100.8 kg Body Mass Index (BMI) 33.7 Intake & Output: Intake and Output for Last 24 Hours 04/20/23 04/21/23 04/22/23 23:59 23:59 23:59 Intake Total 1530 / 1530 300 / 300 Balance 1530 / 1530 300 / 300 Lab / Micro Data Result Diagrams: 04/21/23 05:49 04/22/23 05:23 Labs: Laboratory Results - last 24 hr 04/22/23 05:23: Sodium 141, Potassium 3.8, Chloride 109 H, Carbon Dioxide 26.0, Anion Gap 6, BUN 12, Creatinine 0.87, Estim Creat Clear Calc 73.16, Est GFR (MDRD) Af Amer 111, Est GFR (MDRD) Non-Af 91, BUN/Creatinine Ratio 13.8, Glucose 108 H, Calcium 8.5, Magnesium 1.9, Total Bilirubin 0.60, AST 81 H, ALT 93 H, Alkaline Phosphatase 103, Total Protein 6.3 L, Albumin 3.0 L, Globulin 3.3, Albumin/Globulin Ratio 0.9 04/22/23 05:23: Phosphorus 3.4 Physical Exam Narrative Physical exam: General: Well-nourished, well-developed. Head: Normocephalic, atraumatic, no tenderness Eyes: Vision is grossly intact. EOMI ENT, no trauma, moist mucous membranes, no rhinorrhea Neck: Nontender, No thyromegaly. CVS: Regular rate and rhythm. S1-S2 present. No murmur, gallop or rub. Respiratory : clear to auscultation bilaterally, chest wall nontender Abdomen: Soft, nontender, nondistended, normal bowel sounds, no masses : Deferred Back: Nontender, no CVA tenderness, no midline spinal tenderness, deformities, step-offs Extremities: Nontender full range of motion, no trauma Skin: Normal color, no trauma, abrasions Neuro: Alert, oriented, tremors. Cranial nerves II through XII grossly intact. Psychiatry: Anxiety Const alert, oriented x3, no apparent distress and well nourished Constitutional Narrative: Obese, older, white male, lying in bed napping but awakens easily, appears comfortable and nontoxic, appropriately interactive during our conversation HEENT head/scalp atraumatic and moist oral mucous membranes Head and Scalp: normocephalic Resp normal respiratory effort, no retractions, no use of accessory muscles and clear to auscultation bilaterally Cardio regular rate, S1 normal heart sound, S2 normal heart sound, no murmurs, no rub, no gallops and no clicks; Negative for regular rhythm Cardio Narrative: Irregularly irregular rhythm GI normal to inspection, nondistended, normoactive bowel sounds, soft to palpation and non-tender Extremity no clubbing, cyanosis or edema Neuro oriented x3 and moves all extremities Speech: speech normal Psych affect normal Psych Narrative: Eye contact is good, patient is very pleasant, appropriately interactive Assessment & Plan Assessment/Plan (1) Alcohol dependence: (2) Atrial fibrillation: (3) Nausea: (4) Desire for detoxification: (5) Alcoholic hepatitis: PLAN: Plan Alcohol abuse with acute alcohol withdrawal -Drinking 10 tall boys daily -phenobarbital taper -Thiamine and folate -Supportive medications for withdrawal symptom management -180 is following and appointment is made for tomorrow -And will be for discharge tomorrow as long as patient remains medically stable with regards to his withdrawal Alcoholic hepatitis -Enzymes improving -AST 109--> 81 -ALT 101--> 93 Nausea/diarrhea -Resolved History of alcoholic cardiomyopathy -Last echocardiogram from 04/15/2022 showed an EF of 55% with a moderately enlarged left atrium and a mildly enlarged right atrium -Continue home metoprolol Hyperlipidemia -Continue home atorvastatin Paroxysmal atrial fibrillation -Rate is now controlled -Continue metoprolol 100 mg twice daily -Patient was previously on apixaban but discontinued secondary to his chronic alcohol use and risk for falls and GI bleed -If patient can maintain sobriety would reinitiate Eliquis as [id number] or is 2 Depression -Continue home duloxetine History of tobacco abuse -Remote -Encourage continued cessation DVT prophylaxis -Low risk -Encourage frequent and early ambulation Obesity -BMI 33.8 -Complicates treatment, prognosis, outcomes CODE STATUS -Full code Charges/Coding Visit Charges Inpatient E&M: 91703 Subs Hosp L2
--- NOTE | 2023-04-22 12:18 | CASEMGMT ---
Akila, technical specialist cytogenetics, spoke with patient. Akila asked if patient could be discharged tomorrow am and if transport via [facility] van could be arranged. Patient will be seeing his counselor. WALT notified physician. Lisa QUINONES
--- NOTE | 2023-04-22 13:21 | CASEMGMT ---
WALT called [facility] van and arranged for patient to get picked up at 930 04-23-23. WALT will notify RN and insulation cupola charger. Lisa QUINNOES
--- NOTE | 2023-04-22 13:33 | CHAPLAIN ---
Type of Pastoral Visit ___ Initial Visit ___ Follow-up Visit ___ On-call Visit ___ General Patient Visit ___ Spiritual Assessment ___ Family Conference ___ Bereavement ___ Rapid Response ___ Code Blue ___ Other (describe below) Pastoral Care Referral From ___ Patient ___ Family ___ Nurse ___ Physician ___ Physician'S Assistant ___ Induction Machine Operator ___ Other (describe below) Sacrament/Intervention ___ Active listening ___ Anointing ___ Taoism ___ Bereavement ___ Communion ___ Yaneth exploration ___ ___ Life review ___ Prayer ___ Reconciliation ___ Sacrament of Sick ___ Supportive presence ___ Wedding ___ Other (describe below) Pastoral Comments patient was standing in doorway; offered time to talk and presence; pt gives casual conversation about food; pt also admits to feelings of depression along with feeling better today than yesterday; pt speaks of desire to stay sober but also worries about he potential to not be sober; talked about how he must focus his time and attention; pt acknowledges that he needs to be around people and to enjoy some old hobbies again; offered ongoing support as desired
[2023-04-22] MEDS: traZODone 100 MG Tablet PO (20:45)
[2023-04-22] MEDS: Gabapentin 300 MG Capsule PO (20:46)
[2023-04-23] VITALS (8 sets, daily range): BP systolic 101–129; BP diastolic 57–93; PULSE 70–93; RESP 12–18; TEMP 36.3–36.7; O2SAT 89–96
[2023-04-23] MEDS: LORazepam 2 MG/ML Syringe IV ×3 (00:58→21:40)
[2023-04-23] MEDS: Phenobarbital 32.4 MG Tablet PO ×6 (01:06→21:30)
[2023-04-23] MEDS: Gabapentin 300 MG Capsule PO ×2 (05:09→20:16)
--- NOTE | 2023-04-23 07:16 | PCM.PROGNOTE ---
Subjective Subjective Developed agitation and vision overnight. This is fairly typical for his course with alcohol detox. He tends to start to have symptoms that are fairly significant at the end of day 2/day 3. We were hoping that this would be less of a problem since he seems to be drinking less however he required IV Ativan overnight. He remains confused this morning. Objective Data Objective Data Vital Signs: Vital Signs Temp Pulse Resp BP Pulse Ox O2 Del Method FiO2 97.4 F L 87 18 101/80 96 Room Air 2 04/23/23 05:06 04/23/23 05:06 04/23/23 05:06 04/23/23 05:06 04/23/23 05:06 04/23/23 05:06 04/23/23 01:10 Oxygen Delivery Method Room Air Weight: 100.8 kg Body Mass Index (BMI) 33.7 Intake & Output: Intake and Output for Last 24 Hours 04/21/23 04/22/23 04/23/23 23:59 23:59 23:59 Intake Total 1530 / 1530 900 / 1100 440 / 440 Balance 1530 / 1530 900 / 1100 440 / 440 Lab / Micro Data Result Diagrams: 04/21/23 05:49 04/22/23 05:23 Physical Exam Const alert, no apparent distress and well nourished Constitutional Narrative: Oriented to self and place but not time, obese, older, white male, sitting up in bed, appears comfortable and nontoxic, Talking about money and his top drawer that he needs as he has no other money during my evaluation HEENT normocephalic, head/scalp atraumatic and moist oral mucous membranes Resp normal respiratory effort, no retractions, no use of accessory muscles and clear to auscultation bilaterally Cardio regular rate, S1 normal heart sound, S2 normal heart sound, no murmurs, no rub, no gallops and no clicks; Negative for regular rhythm Cardio Narrative: Irregularly irregular rhythm GI normal to inspection, nondistended, normoactive bowel sounds, soft to palpation and non-tender Extremity no clubbing, cyanosis or edema Neuro moves all extremities and no focal motor deficits Neuro Narrative: Significant confusion, clarity of speech is normal however content is not Speech: speech normal Psych affect normal; Negative for thought process normal Psych Narrative: Eye contact is good, patient is very pleasant Assessment & Plan Assessment/Plan (1) Alcohol dependence: (2) Atrial fibrillation: (3) Nausea: (4) Desire for detoxification: (5) Alcoholic hepatitis: PLAN: Plan Alcohol abuse with acute alcohol withdrawal -Drinking 10 tall boys daily -phenobarbital taper -Thiamine and folate -Supportive medications for withdrawal symptom management -180 is following and appointment is made for tomorrow -Patient now with worsening delirium and agitation discharge last to be held--> reevaluate tomorrow Alcoholic hepatitis -Resolving History of alcoholic cardiomyopathy -Last echocardiogram from 04/15/2022 showed an EF of 55% with a moderately enlarged left atrium and a mildly enlarged right atrium -Continue home metoprolol Hyperlipidemia -Continue home atorvastatin Paroxysmal atrial fibrillation -Rate remains controlled -Continue metoprolol 100 mg twice daily -Patient was previously on apixaban but discontinued secondary to his chronic alcohol use and risk for falls and GI bleed -If patient can maintain sobriety would reinitiate Eliquis as [id number] or is 2 Depression -Continue home duloxetine History of tobacco abuse -Remote -Encourage continued cessation DVT prophylaxis -Low risk -Encourage frequent and early ambulation Obesity -BMI 33.8 -Complicates treatment, prognosis, outcomes CODE STATUS -Full code Disposition: -Patient was to be discharged today as long as he was medically stable however he developed delirium and agitation through the night requiring IV Ativan. We will have to stop discharge and wait till his mental clarity improves. Charges/Coding Visit Charges Inpatient E&M: 01761 Subs Hosp L2
--- NOTE | 2023-04-23 08:48 | CASEMGMT ---
Per physician patient is not going to be discharged due to going through alcohol withdrawal. WALT canceled the [facility] van transport. WALT also called Akila at [facility] and let her know this information. Lisa QUINONES
[2023-04-23] MEDS: Folic Acid 1 MG Tablet PO (12:37)
[2023-04-23] MEDS: amLODIPine 5 MG Tablet PO (12:37)
[2023-04-23] MEDS: Metoprolol Tartrate 100 MG Tablet PO ×2 (12:37→20:16)
[2023-04-23] MEDS: Thiamine Hydrochloride 100 MG Tablet PO (12:37)
[2023-04-23] MEDS: DULoxetine Hcl 60 MG Capsule PO (12:37)
[2023-04-23] MEDS: Atorvastatin Calcium 40 MG Tablet PO (12:38)
[2023-04-23] MEDS: hydrOXYzine PAM 25 MG Capsule 50 MG PO (17:20)
[2023-04-23] MEDS: traZODone 100 MG Tablet PO (20:16)
[2023-04-24] VITALS (8 sets, daily range): BP systolic 100–153; BP diastolic 62–92; PULSE 65–86; RESP 14–18; TEMP 35.9–37.2; O2SAT 96–100
[2023-04-24] MEDS: Folic Acid 1 MG Tablet PO (06:56)
[2023-04-24] MEDS: Phenobarbital 32.4 MG Tablet PO ×4 (06:56→22:40)
[2023-04-24] MEDS: amLODIPine 5 MG Tablet PO (09:50)
[2023-04-24] MEDS: DULoxetine Hcl 60 MG Capsule PO (09:50)
[2023-04-24] MEDS: Thiamine Hydrochloride 100 MG Tablet PO (09:50)
[2023-04-24] MEDS: Atorvastatin Calcium 40 MG Tablet PO (09:50)
[2023-04-24] MEDS: Metoprolol Tartrate 100 MG Tablet PO ×2 (09:50→22:37)
[2023-04-24] MEDS: 0.9% Saline Lock 10 ML Syringe IV (09:54)
--- NOTE | 2023-04-24 11:48 | PCM.PN.HOSP ---
Reason for Visit Reason for Visit: Alcohol detox Subjective Subjective Patient was agitated overnight and mean but no confusion. Was alert and oriented for me this morning however had confusion later on in the morning and therefore was unable to go home today. It appears that he still having some hallucinations. Objective Data Objective Data Vital Signs: Vital Signs Temp Pulse Resp BP Pulse Ox O2 Del Method O2 Flow Rate 97.7 F L 81 14 110/80 96 Room Air 2 04/24/23 09:30 04/24/23 09:50 04/24/23 09:30 04/24/23 09:50 04/24/23 09:30 04/24/23 09:30 04/24/23 04:00 FiO2 2 04/23/23 01:10 Oxygen Flow Rate (L/min) 2 Oxygen Delivery Method Room Air Weight: 100.8 kg Body Mass Index (BMI) 33.7 Intake & Output: Intake and Output for Last 24 Hours 04/22/23 04/23/23 04/24/23 23:59 23:59 23:59 Intake Total 900 / 1100 920 / 1020 572 / 572 Balance 900 / 1100 920 / 1020 572 / 572 Lab / Micro Data Result Diagrams: 04/21/23 05:49 04/22/23 05:23 Physical Exam Const alert, oriented x3, no apparent distress and well nourished Constitutional Narrative: Patient was alert and oriented x3 at the time of my evaluation however later in the morning had confusion and hallucinations, was lying in bed sleeping soundly upon my arrival but awaken to tactile stimulation, nontoxic-appearing HEENT normocephalic, head/scalp atraumatic and moist oral mucous membranes HEENT Narrative: Dentition is fair for age, Mallampati is 3 Resp normal respiratory effort, no retractions, no use of accessory muscles and clear to auscultation bilaterally Cardio regular rate, S1 normal heart sound, S2 normal heart sound, no murmurs, no rub, no gallops and no clicks; Negative for regular rhythm Cardio Narrative: Irregularly irregular rhythm GI normal to inspection, nondistended, normoactive bowel sounds, soft to palpation and non-tender Extremity no clubbing, cyanosis or edema Neuro oriented x3, moves all extremities and no focal motor deficits Neuro Narrative: Oriented x3 at the time of my evaluation but later on had some confusion and hallucinations Speech: speech normal Psych Psych Narrative: Remains intermittently confused with intermittent agitation Assessment & Plan Assessment/Plan (1) Alcohol dependence: (2) Atrial fibrillation: (3) Nausea: (4) Desire for detoxification: (5) Alcoholic hepatitis: PLAN: Plan Alcohol abuse with acute alcohol withdrawal -Drinking 10 tall boys daily -phenobarbital taper -Thiamine and folate -Supportive medications for withdrawal symptom management -[facility] is following and will be available at discharge for counseling services -Patient still with intermittent agitation and delirium--> still unable to discharge patient Alcoholic hepatitis -Resolving History of alcoholic cardiomyopathy -Last echocardiogram from 04/15/2022 showed an EF of 55% with a moderately enlarged left atrium and a mildly enlarged right atrium -Continue home metoprolol Hyperlipidemia -Continue home atorvastatin Paroxysmal atrial fibrillation -Rate remains controlled but still in A-fib -Continue metoprolol 100 mg twice daily -Patient was previously on apixaban but discontinued secondary to his chronic alcohol use and risk for falls and GI bleed -If patient can maintain sobriety would reinitiate Eliquis as [id number] or is 2 Depression -Continue home duloxetine History of tobacco abuse -Remote -Encourage continued cessation DVT prophylaxis -Low risk -Encourage frequent and early ambulation Obesity -BMI 33.8 -Complicates treatment, prognosis, outcomes CODE STATUS -Full code Disposition: -Patient still with some delirium. Once delirium clears and patient's mental clarity improves will be discharged home with outpatient follow-up at [facility]. Charges/Coding Visit Charges Inpatient E&M: 96400 Subs Hosp L2
--- NOTE | 2023-04-24 14:16 | CASEMGMT ---
SW received a voice mail from patient's sister asking if she can visit patient. SW called patient's sister Shanell and left her a voice mail letting her know she cannot visit patient as he is part of the detox program and they are not allowed to have visitors. SW also let her know patient is currently confused due to alcohol withdrawal. Lisa Abreu COMMERCIAL RELIEF DRIVER STACIE
--- NOTE | 2023-04-24 15:48 | CASEMGMT ---
Per Akila diversity specialist when patient is through withdrawal the plan is to discharge home and [facility] will follow up with patient. Lisa Abreu FIELD CASHIER MEDICAL OFFICE RECEPTIONIST ASSISTANT
[2023-04-25] VITALS (10 sets, daily range): BP systolic 114–143; BP diastolic 77–103; PULSE 84–96; RESP 14–18; TEMP 36.5–37.1; O2SAT 95–98
[2023-04-25] MEDS: LORazepam 1 MG Tablet 2 MG PO ×3 (04:02→21:40)
[2023-04-25] MEDS: Phenobarbital 32.4 MG Tablet PO ×2 (04:31→09:24)
[2023-04-25 06:29] LABS: Absolute Lymphocyte Count 0.81 X10^3/uL (0.83-4.51); Absolute Neutrophil Count 6.5 X10^3/uL (2.0-7.7); Basophil# 0.04 X10^3/uL; Basophil% 0.5 % (0-1); Eosinophil# 0.18 X10^3/uL; Eosinophils% 2.2 % (0-5); Hematocrit 42.3 % (40-54); Lymphocyte # 0.81 X10^3/ul (0.83-4.51); Lymphocyte % 9.9 % (19-41); Mean Corp Hgb Conc 33.1 g/dL (32-36); Mean Corpuscular Hgb 34.3 pg (27.0-32.0); Mean Corpuscular Volume 103.7 fL (80-94); Mean Platelet Vol. 10.4 fl (6.2-12.0); Monocyte# 0.61 X10^3/uL; Monocyte% 7.4 % (0-10); NRBC Flagged by Analyzer 0 % (0-5); Neutrophil % 79.3 % (47-70); Platelet Count 241 K/mm3 (150-450); RBC Distribution Width CV 13.8 % (11.6-14.6); RBC Distribution Width SD 52.9 fl (35.1-43.9); Red Blood Count 4.08 M/mm3 (4.6-6.2); White Blood Count 8.2 K/mm3 (4.4-11.0)
[2023-04-25 07:04] LABS: Anion Gap 5 (5-15); BUN 11 mg/dL (7-18); BUN/Creat Ratio 11.8 RATIO (10-20); Calcium,Total 9.3 mg/dL (8.5-10.1); Chloride 108 mmol/L (98-107); Creatinine, Serum 0.93 mg/dL (0.70-1.30); EST Glomerular Filtration Rate 84 mL/min (>60); Est Glom Filt Rate - Afr Amer 102 mL/min (>60); Estimated Creatinine Clearance 68.44 ml/min; Glucose 92 mg/dL (74-106); Potassium 3.9 mmol/L (3.5-5.1); Sodium Level 140 mmol/L (136-145)
[2023-04-25] MEDS: Folic Acid 1 MG Tablet PO (09:23)
[2023-04-25] MEDS: amLODIPine 5 MG Tablet PO (09:23)
[2023-04-25] MEDS: DULoxetine Hcl 60 MG Capsule PO (09:24)
[2023-04-25] MEDS: Metoprolol Tartrate 100 MG Tablet PO ×2 (09:24→21:29)
[2023-04-25] MEDS: Atorvastatin Calcium 40 MG Tablet PO (09:24)
[2023-04-25] MEDS: Thiamine Hydrochloride 100 MG Tablet PO (09:24)
--- NOTE | 2023-04-25 13:46 | PN.HOSP_ITS ---
Reason for Visit Reason for Visit: Alcohol detox Subjective Subjective Patient still with intermittent confusion and disorientation. Denies any acute issues and asks me how close [facility] is to [facility]. Repeat labs done this morning and overall look good. Objective Data Objective Data Vital Signs: Vital Signs Temp Pulse Resp BP Pulse Ox O2 Del Method O2 Flow Rate 98.1 F 96 18 114/83 H 95 Room Air 2 04/25/23 08:59 04/25/23 11:00 04/25/23 08:59 04/25/23 08:59 04/25/23 08:59 04/25/23 09:03 04/24/23 04:00 FiO2 2 04/23/23 01:10 Oxygen Flow Rate (L/min) 2 Oxygen Delivery Method Room Air Weight: 100.8 kg Body Mass Index (BMI) 33.7 Intake & Output: Intake and Output for Last 24 Hours 04/23/23 04/24/23 04/25/23 23:59 23:59 23:59 Intake Total 920 / 1020 772 / 772 650 / 650 Balance 920 / 1020 772 / 772 650 / 650 Lab / Micro Data Result Diagrams: 04/25/23 06:14 04/25/23 06:14 Labs: Laboratory Results - last 24 hr 04/25/23 06:14: WBC 8.2, RBC 4.08 L, Hgb 14.0, Hct 42.3, MCV 103.7 H D, MCH 34.3 H, MCHC 33.1 D, RDW Std Deviation 52.9 H, RDW Coeff of Pati 13.8, Plt Count 241, MPV 10.4, Immature Gran % (Auto) 0.700, Neut % (Auto) 79.3 H, Lymph % (Auto) 9.9 L, [place] % (Auto) 7.4, Eos % (Auto) 2.2, Baso % (Auto) 0.5, Absolute Neuts (auto) 6.5, Absolute Lymphs (auto) 0.81 L, Nucleated RBC % 0 04/25/23 06:14: Sodium 140, Potassium 3.9, Chloride 108 H, Carbon Dioxide 27.0, Anion Gap 5, BUN 11, Creatinine 0.93, Estim Creat Clear Calc 68.44, Est GFR (MDRD) Af Amer 102, Est GFR (MDRD) Non-Af 84, BUN/Creatinine Ratio 11.8, Glucose 92, Calcium 9.3 Physical Exam Const alert, no apparent distress and well nourished Constitutional Narrative: Patient oriented to self and month but not year, was able to tell me the president [employer], elderly white male up in wheelchair with nursing assistance, appears comfortable and nontoxic but markedly confused Orientation / Consciousness: confused HEENT normocephalic, head/scalp atraumatic and moist oral mucous membranes HEENT Narrative: Mallampati 2-3, no thrush Resp normal respiratory effort, no retractions, no use of accessory muscles and clear to auscultation bilaterally Cardio regular rate, S1 normal heart sound, S2 normal heart sound, no murmurs, no rub, no gallops and no clicks; Negative for regular rhythm Cardio Narrative: Irregularly irregular rhythm GI normal to inspection, nondistended, normoactive bowel sounds, soft to palpation and non-tender Extremity no clubbing, cyanosis or edema Neuro moves all extremities and no focal motor deficits Speech: speech normal Psych affect normal; Negative for thought process normal Psych Narrative: Remains intermittently confused with intermittent agitation Assessment & Plan Assessment/Plan (1) Alcohol dependence: (2) Atrial fibrillation: (3) Nausea: (4) Desire for detoxification: (5) Alcoholic hepatitis: PLAN: Plan Alcohol abuse with acute alcohol withdrawal -Drinking 10 tall boys daily -phenobarbital taper -Thiamine and folate -Supportive medications for withdrawal symptom management -[facility] is following and will be available at discharge for counseling services -Patient still with intermittent agitation and delirium--> still unable to discharge patient Toxic/metabolic encephalopathy -This is pretty par for the course when the patient is admitted for detox -Consistent with his typical pattern of delirium -Anticipate that this will clear with time -Usually around day 5-6 of his hospitalization his symptoms start to improve Alcoholic hepatitis -Resolving History of alcoholic cardiomyopathy -Last echocardiogram from 04/15/2022 showed an EF of 55% with a moderately en larged left atrium and a mildly enlarged right atrium -Continue home metoprolol Hyperlipidemia -Continue home atorvastatin Paroxysmal atrial fibrillation -Rate remains controlled but still in A-fib -Continue metoprolol 100 mg twice daily -Patient was previously on apixaban but discontinued secondary to his chronic alcohol use and risk for falls and GI bleed -If patient can maintain sobriety would reinitiate Eliquis as [id number] or is 2 Depression -Continue home duloxetine History of tobacco abuse -Remote -Encourage continued cessation DVT prophylaxis -Low risk -Encourage frequent and early ambulation Obesity -BMI 33.8 -Complicates treatment, prognosis, outcomes CODE STATUS -Full code Disposition: -Patient still having delirium and confusion. Once encephalopathy clears and patient's mental clarity improves will be discharged home with outpatient follow-up at [facility]. Charges/Coding Visit Charges Inpatient E&M: 64473 Subs Hosp L2
[2023-04-26 05:50] VITALS: BP 118/76; PULSE 81; RESP 16; TEMP 36.5; O2SAT 92
[2023-04-26 08:54] VITALS: BP 116/83; PULSE 85; RESP 18; TEMP 36.4; O2SAT 99
[2023-04-26 08:57] VITALS: BP 116/83; PULSE 85
[2023-04-26] MEDS: Thiamine Hydrochloride 100 MG Tablet PO (08:57)
[2023-04-26] MEDS: Metoprolol Tartrate 100 MG Tablet PO (08:57)
[2023-04-26] MEDS: amLODIPine 5 MG Tablet PO (08:57)
[2023-04-26] MEDS: DULoxetine Hcl 60 MG Capsule PO (08:57)
[2023-04-26] MEDS: Folic Acid 1 MG Tablet PO (08:57)
[2023-04-26] MEDS: Atorvastatin Calcium 40 MG Tablet PO (08:58)
--- NOTE | 2023-04-26 11:21 | DS.PCM_ITS ---
Providers Date of Admission: 04/21/23 Date of Discharge: 04/26/23 Primary Care Physician: Graciela Ashley DO Reason For Visit: ETOH DETOX Diagnosis Discharge Diagnosis (1) Alcohol dependence: Status: Acute Code(s): F10.20 - Alcohol dependence, uncomplicated (2) Atrial fibrillation: Status: Acute Code(s): I48.91 - Unspecified atrial fibrillation (3) Nausea: Status: Acute Code(s): R11.0 - Nausea (4) Desire for detoxification: Status: Acute (5) Alcoholic hepatitis: Status: Acute Code(s): K70.10 - Alcoholic hepatitis without ascites Medications at Discharge Home Medications metoprolol tartrate 100 mg tablet 100 mg PO BID bp 10/03/19 atorvastatin 40 mg tablet 40 tab PO DAILY cholesterol 05/08/22 duloxetine 60 mg capsule,delayed release 60 cap PO DAILY mood 05/08/22 amlodipine 5 mg tablet 5 mg PO DAILY BP 12/15/22 folic acid 1 mg tablet 1 mg PO BREAKFAST Check with primary doctor 04/05/23 thiamine HCl (vitamin B1) 100 mg tablet (Vitamin B-1) 100 mg PO DAILYCM Check with primary doctor 04/05/23 clindamycin HCl 300 mg capsule (Cleocin HCl) 300 mg PO 4X/DAY 10 days #40 CAPSUL ES 04/12/23 Hospital Course Operations None Procedures EKG Summary of Care Provided Minutes Spent on Discharge: 25 Hospital Course: Mr. Mccabe is a 72-year-old white male who is well-known to this institution for multiple admissions for alcohol detox.? His detox admissions are typically complicated with delirium at about day 3.? He presented early on the morning of 04/21/2023 to the emergency department with nausea.? He had no vomiting or abdominal pain.? Shortly after initial evaluation the patient developed diarrhea and was requesting detox for alcohol.? He was just recently discharged after a 3-day stay from 04/05/2023 through 04/08/2023 for alcohol detox and was planned to follow-up with 180 at that time.? He reported he went to a couple visits at [facility] and then relapsed.? 180 does confirm that he is following up with counseling and that his alcohol consumption is seemingly decreasing. He admitted that he currently is drinking up to 10 cans of beer a day.? He felt that his symptoms on presentation were likely related to his alcoholism and that is when he decided he wanted detox.? He has been drinking for 55 years.? He was also noted to be in A-fib with RVR in the emergency department.? He does have a history of PAF and is treated with metoprolol.? He is not fully anticoagulated because of his history of alcohol abuse and risk of falls. Admitted to telemetry and given his home metoprolol which rate controlled his A-fib. We will continue this at discharge and continue to hold anticoagulation, however, if he is able to maintain sobriety I would can consider reinitiating his Eliquis as it is currently on hold because of his fall risk and previous history with falls due to his alcoholism. If he is sober this should eliminate this risk factor and his [id number] score is high enough that he should be considered for anticoagulation again. The initial intent was to discharge him on 04/23/2023 with transportation to his counselor's office but unfortunately the patient developed delirium through the night and discharge had to be held. Patient's delirium persisted until 04/26/2023 at which time his mental status returned to baseline. His delirium resolved and he was alert and oriented x3 and mental status much improved. Patient was able to be discharged home in stable condition at this time. He is to call Turner from [facility] and counseling will be set up for him tomorrow. He is to follow-up with his primary care physician within the next month and continued ongoing follow-up at 180. Discharge diagnoses: Alcohol abuse with acute alcohol withdrawal Alcoholic hepatitis Nausea/diarrhea-resolved Metabolic/toxic encephalopathy-resolved History of alcoholic cardiomyopathy Hyperlipidemia PAF Depression History of tobacco abuse Obesity Physical Exam Const alert, oriented x3, no apparent distress, no limitations and well nourished Constitutional Narrative: Obese, older, white male, lying in bed sleeping but easily arousable, alert and oriented x3 this morning, no signs of delirium, hallucinations or confusion, appears comfortable and nontoxic and anxious to go home General Appearance: cooperative, comfortable, well kempt and well developed Orientation / Consciousness: awake, oriented to person, oriented to place and oriented to time Exam Limitations: no limitations Nutritional Appearance: obese HEENT normocephalic, head/scalp atraumatic and moist oral mucous membranes HEENT Narrative: Mallampati 3, no thrush Resp normal respiratory effort, no retractions, no use of accessory muscles and clear to auscultation bilaterally Cardio regular rate, S1 normal heart sound, S2 normal heart sound, no murmurs, no rub, no gallops and no clicks; Negative for regular rhythm Cardio Narrative: Irregularly irregular rhythm GI normal to inspection, nondistended, normoactive bowel sounds, soft to palpation and non-tender Extremity no clubbing, cyanosis or edema Neuro oriented x3, CN's II-XII intact bilaterally, moves all extremities and no focal motor deficits Speech: speech normal Psych thought process normal and affect normal Psych Narrative: Pleasant, appropriately interactive Weight / BMI Weight Weight: 100.8 kg Body Mass Index (BMI) 33.7 ABG / Lab / Microbiology Data Result Diagrams: 04/25/23 06:14 04/25/23 06:14 Laboratory: Laboratory Results - last 24 hr 04/22/23 05:23: Sodium 141, Potassium 3.8, Chloride 109 H, Carbon Dioxide 26.0, Anion Gap 6, BUN 12, Creatinine 0.87, Estim Creat Clear Calc 73.16, Est GFR (MDRD) Af Amer 111, Est GFR (MDRD) Non-Af 91, BUN/Creatinine Ratio 13.8, Glucose 108 H, Calcium 8.5, Magnesium 1.9, Total Bilirubin 0.60, AST 81 H, ALT 93 H, Alkaline Phosphatase 103, Total Protein 6.3 L, Albumin 3.0 L, Globulin 3.3, Albumin/Globulin Ratio 0.9 04/22/23 05:23: Phosphorus 3.4 D/C Instructions Discharge Diet: Low fat / Low cholesterol Discharge Activity: Return to Normal Activity Meaningful Use Info Meaningful Use Diagnoses (Choose all that apply): None applicable Discharge Plan Admission Admit Date/Time: 04/21/23 08:34 Primary Reason for Your Visit: EtOH Detox Attending Provider: eMrvat Veras Primary Care Provider: Graciela Ashley Consulting Providers: Alex Gonzalez Instructions Additional Instructions / Restrictions: 1. Please call Turner from [facility] on the day of your discharge to let her know that you have been discharged and to help get follow-up with your counselor on 04/27/2023 2. Would recommend complete abstinence from alcohol if at all possible Discharge Orders/Prescriptions Prescriptions: Continued metoprolol tartrate 100 mg tablet 100 mg PO BID duloxetine 60 mg capsule,delayed release(DR/EC) 60 cap PO DAILY atorvastatin 40 mg tablet 40 tab PO DAILY Label Comments: 1 tablet by mouth as directed amlodipine 5 mg tablet 5 mg PO DAILY thiamine HCl (vitamin B1) [Vitamin B-1] 100 mg tablet 100 mg PO DAILYCM folic acid 1 mg tablet 1 mg PO BREAKFAST clindamycin HCl [Cleocin HCl] 300 mg capsule 300 mg PO 4X/DAY 10 Days Qty: 40 0RF Referrals / Follow Up: Graciela Ashley DO [Primary Care Provider] - Within 1 Month Disposition Disposition (needs filled in before D/C Order can be placed): Home, Self Care Charges/Coding Visit Charges Inpatient E&M: 42429 Disch Hosp
--- NOTE | 2023-04-26 11:52 | NURSING ---
patient alert and oriented. CIWA 0. Ambulated patient and patient steady with ambulation.
--- NOTE | 2023-04-28 09:06 | CASEMGMT ---
Social Work Received call from Lydia, lining caser from [facility], checking in on whether patient has been discharged. [phone]. Updated Lydia to discharge date and documented plan for discharge. Lydia will continue to provide support to patient and keep in contact with patient as able. -BRANT Alcantar, STATISTICAL MACHINE SERVICER
== END 2023-04-26 12:11 | disposition home or self-care (01) | DRG 897 ==
LOC: ED 04:47 → PCU 06:46
PROVIDERS: Admitting Provider Hospitalist; Emergency Provider Emergency Medicine; PCP Family Medicine; Visit Provider Internal Medicine
DX: F10.231 Alcohol dependence with withdrawal delirium (principal); I42.6 Alcoholic cardiomyopathy; K70.10 Alcoholic hepatitis without ascites; I48.0 Paroxysmal atrial fibrillation; I10 Essential (primary) hypertension; E78.5 Hyperlipidemia, unspecified; F32.A Depression, unspecified; Z87.891 Personal history of nicotine dependence; E66.9 Obesity, unspecified; Z68.33 Body mass index [BMI] 33.0-33.9, adult; Y90.9 Presence of alcohol in blood, level not specified
CPT/HCPCS: 36415; 80048; 80053; 80307; 82077; 83735; 84100; 85025; 93005; 94668; 99252; 99285; A4216; G0463

== ENCOUNTER 2023-05-13 08:34 | Inpatient (IN) | payer MEDICARE, MEDICAID, SELFPAY ==
[2023-05-13] VITALS (11 sets, daily range): BP systolic 125–165; BP diastolic 86–129; PULSE 68–129; RESP 14–28; TEMP 36.2–36.8; O2SAT 96–99; BMI 34.1
--- NOTE | 2023-05-13 09:18 | EKG12_ITS ---
Test Reason : ETOH Blood Pressure : / mmHG Vent. Rate : 121 BPM Atrial Rate : 000 BPM P-R Int : 000 ms QRS Dur : 094 ms QT Int : 330 ms P-R-T Axes : 000 024 072 degrees QTc Int : 468 ms Atrial fibrillation with rapid ventricular response Abnormal ECG Confirmed by AURELIO MEJIA, ALBERTO ([id number]), videotape editor MELVI ALBA ([id number]) on 05/14/2023 2:20:06 PM Referred By: JACQUELINE Confirmed By:ALBERTO CAREY MD
[2023-05-13 09:37] LABS: Absolute Lymphocyte Count 0.56 X10^3/uL (0.83-4.51); Absolute Neutrophil Count 5.2 X10^3/uL (2.0-7.7); Basophil# 0.03 X10^3/uL; Basophil% 0.5 % (0-1); Eosinophil# 0.04 X10^3/uL; Eosinophils% 0.6 % (0-5); Hematocrit 41.8 % (40-54); Hemoglobin 14.7 g/dL (13.0-16.5); Lymphocyte # 0.56 X10^3/ul (0.83-4.51); Lymphocyte % 8.8 % (19-41); Mean Corp Hgb Conc 35.2 g/dL (32-36); Mean Corpuscular Hgb 34.8 pg (27.0-32.0); Mean Corpuscular Volume 99.1 fL (80-94); Mean Platelet Vol. 10.1 fl (6.2-12.0); Monocyte# 0.48 X10^3/uL; Monocyte% 7.5 % (0-10); NRBC Flagged by Analyzer 0 % (0-5); Neutrophil # 5.23 X10^3/uL (2.7-7.7); Neutrophil % 82.1 % (47-70); POSITIVE DIFFERENTIAL YES; Platelet Count 155 K/mm3 (150-450); RBC Distribution Width CV 14.3 % (11.6-14.6); RBC Distribution Width SD 51.8 fl (35.1-43.9); Red Blood Count 4.22 M/mm3 (4.6-6.2); White Blood Count 6.4 K/mm3 (4.4-11.0)
[2023-05-13] MEDS: Ondansetron 4 MG/2 ML Vial IV (09:39)
[2023-05-13] MEDS: Lactated Ringers 1,000 ML 999 ML IV (09:39)
[2023-05-13] MEDS: LORazepam 2 MG/ML Syringe 1 MG IV (09:39)
[2023-05-13 09:42] LABS: Differential Indicated SCAN CRITERIA MET
[2023-05-13 10:00] LABS: Amphetamine Urine VISTA NEGATIVE (<1000 ng/mL); Barbiturate Urine VISTA POSITIVE (< 200 ng/mL); Benzodiazepine Urine VISTA NEGATIVE (< 200 ng/mL); Cocaine Urine VISTA NEGATIVE (< 300 ng/mL); Ecstacy Urine VISTA NEGATIVE (< 500 ng/mL); Methadone Urine VISTA NEGATIVE (< 300 ng/mL); PCP Urine VISTA NEGATIVE (< 25 ng/mL); THC Urine VISTA NEGATIVE (< 50 ng/mL); Vista UDS pH Range 5
[2023-05-13 10:01] LABS: ALB/GLOB Ratio 0.8 RATIO (0.9-2.4); AST(SGOT) 56 U/L (15-37); Alanine Aminotransfer ALT/SGPT 39 U/L (16-61); Albumin, Serum 2.8 g/dL (3.2-5.0); Alkaline Phosphatase 114 U/L (45-117); Anion Gap 6 (5-15); BUN 8 mg/dL (7-18); BUN/Creat Ratio 7.3 RATIO (10-20); Calcium,Total 8.2 mg/dL (8.5-10.1); Chloride 109 mmol/L (98-107); EST Glomerular Filtration Rate 70 mL/min (>60); Est Glom Filt Rate - Afr Amer 84 mL/min (>60); Estimated Creatinine Clearance 57.86 ml/min; Globulin 3.6 g/dL (2.2-4.2); Glucose 254 mg/dL (74-106); Magnesium 1.7 mg/dL (1.6-2.6); Potassium 3.7 mmol/L (3.5-5.1); Protein, Total 6.4 g/dL (6.4-8.2); Sodium Level 138 mmol/L (136-145); Troponin-I HS 14 pg/mL (3.0-78.0)
--- NOTE | 2023-05-13 10:10 | CM.ED ---
Social Work SW contacted detox coordinator Akila and informed her patient is in ED for detox, Akila to follow. Plan: RAMP for detox Sofi ESPINO, STACIE
[2023-05-13 10:12] LABS: Bacteria 0 SEEN /hpf (None Seen); Mucous, Urine 0 SEEN /hpf (<or=2+); Squamous Epithelial Cells - UA 0 SEEN /hpf (0-5)
[2023-05-13 10:21] LABS: Color, Urine Yellow (Yellow); Glucose, Dipstick 1000 mg/dl (Normal); Ketone-Dipstick 5 mg/dl (Negative); Leukocyte Esterase-Dipstick 25 /ul (Negative); Nitrite-Dipstick Negative (Negative); Occult Blood-Urine 25 /ul (Negative); Protein-Dipstick 30 mg/dl (Negative); Urine Bilirubin Dipstick Negative (Negative); Urine Clarity Sl. Cloudy (Clear); Urine Urobilinogen Normal (Normal)
[2023-05-13 10:39] LABS: Alcohol, Blood (Medical)-Serum < 3.0 mg/dL
[2023-05-13 10:46] LABS: Red Blood Cells-Urine 0-5 SEEN /hpf (0-5); White Blood Cells 0-5 SEEN /hpf (0-5)
--- NOTE | 2023-05-13 11:27 | EX.ED.DYSGE1 ---
HPI History of Present Illness Chief Complaint: Substance Abuse Narrative Narrative: Patient is a 72-year-old male who is presenting to the ER today with chief complaint of wanting detox for alcohol. Patient has a long history of alcohol abuse. Patient went to bed last night at 6 PM. Patient states he normally drinks about 12 beers a day. Patient denies any liquor or wine use. Patient has no headache. Does not feel lightheaded or dizzy. No chest pain or shortness of breath. Patient does feel shaky. Patient states that he normally wakes up and he will start drinking beer. Patient was asked several times, and states he only drinks 12 beers a day. Patient denies any other illicit drug use. Patient has been to the ER multiple times in the past for this, has been into detox multiple times in the past. Patient states he was last in detox a few weeks ago at [facility]. Patient has nausea with no vomiting. Patient has no midepigastric pain. Patient has no other acute complaints. Patient feels like he is going into withdrawal from alcohol, is asking for medicine to help with shakiness and nausea. [facility] Medical History Admitted to alcohol detoxification center Alcohol abuse Alcohol dependence Alcoholic cardiomyopathy Anxiety and depression Atrial flutter, paroxysmal Former tobacco use History of acute alcoholic hepatitis HTN (hypertension) Left atrial enlargement Obesity PAF (paroxysmal atrial fibrillation) Panic disorder Home Medications metoprolol tartrate 100 mg tablet 100 mg PO BID bp 10/03/19 [History Last Taken 11/06/22] atorvastatin 40 mg tablet 40 tab PO DAILY cholesterol 05/08/22 [History Last Taken 11/06/22] duloxetine 60 mg capsule,delayed release 60 cap PO DAILY mood 05/08/22 [History Last Taken Unknown] amlodipine 5 mg tablet 5 mg PO DAILY BP 12/15/22 [History Last Taken Unknown] folic acid 1 mg tablet 1 mg PO BREAKFAST Check with primary doctor 04/05/23 [History Last Taken Unknown] thiamine HCl (vitamin B1) 100 mg tablet (Vitamin B-1) 100 mg PO DAILYCM Check with primary doctor 04/05/23 [History Last Taken Unknown] clindamycin HCl 300 mg capsule (Cleocin HCl) 300 mg PO 4X/DAY 10 days #40 CAPSULES 04/12/23 [Rx Last Taken Unknown] Allergy/AdvReac Type Severity Reaction Status Date / Time No Known Allergies Allergy Verified 04/11/23 23:40 Family History Mother CVA (cerebral vascular accident) Father Cancer lung cancer Surgical History Hx of cholecystectomy Social History household members: none housing: apartment Smoking Status: Former smoker alcohol intake: current alcohol intake frequency: 3 or more drinks per day details: 24 12 ounce beers daily substance use type: does not use ROS ROS ED ROS Narrative REVIEW OF SYSTEMS: Unless otherwise stated in this report the patient's positive and negative responses for review of systems for constitutional, eyes, ENT, cardiovascular, respiratory, gastrointestinal, neurological, , musculoskeletal, and integument systems and related systems to the presenting problem are either stated in the history of present illness or were not pertinent or were negative for the symptoms and/or complaints related to the presenting medical problem. EXAM Physical Exam Narrative Exam Narrative: Vital signs reviewed and patient is not hypoxic. General: The patient appears well and in no apparent distress, anxious. Patient is resting comfortably on cart. Not toxic, lethargic, or listless. Skin: Warm, dry, no pallor noted. There is no rash noted. Obese, no skin changes to abdomen. No caput medusa. Head: Normocephalic, atraumatic Eye: Normal conjunctiva, no drainage, EOMI. PERRL. Ears, Nose, Mouth, and Throat: oral mucosa is moist. Nares patent. Mouth without vesicles. Cardiovascular: Irregular irregular, A-fib with RVR, no murmurs, gallops, or rubs, patient has a history of A-fib. Respiratory: Patient is in no distress, no accessory muscle use, lungs are clear to auscultation, no wheezing, rales or rhonchi Back: non-tender, no CVA tenderness bilaterally to percussion. NO CTLS midline or paraspinal tenderness to palpation. GI: Soft, no tenderness to palpation, no masses appreciated. No rebound, guarding, or rigidity noted. Musculoskeletal: The patient has full range of motion of all extremities and joints with no difficulty. Patient has no motor, no sensory deficits. Neurological: A&O x4, normal speech, no focal neurological deficits. Patient has mild shaking, no tremors. Patient does not have any delay or tremors at this time. Patient is anxious. Psychiatric: Cooperative Const Vital Signs: 05/13/23 08:35 05/13/23 08:48 05/13/23 08:49 Temperature 97.7 F L Temperature Source Oral Pulse Rate 123 H 120 H 114 H Respiratory Rate 20 H 28 H 23 H Blood Pressure 149/100 H 134/93 H 134/93 H Blood Pressure Mean 116 106 106 Blood Pressure Source Monitor Blood Pressure Position Sitting Blood Pressure Location Right Arm Pulse Ox 97 98 97 Oxygen Delivery Method Room Air Room Air Room Air 05/13/23 09:41 05/13/23 11:33 05/13/23 11:48 Temperature 97.2 F L 98.1 F 98.1 F Temperature Source Oral Temporal Temporal Pulse Rate 119 H 129 H 121 H Respiratory Rate 22 H 20 H 17 Blood Pressure 147/119 H 152/129 H 160/104 H Blood Pressure Mean 128 136 122 Blood Pressure Source Monitor Monitor Blood Pressure Position Sitting Sitting Blood Pressure Location Right Arm Right Arm Pulse Ox 98 96 99 Oxygen Delivery Method Room Air Room Air Room Air 05/13/23 11:48 Temperature 98.1 F Temperature Source Temporal Pulse Rate 121 H Respiratory Rate 17 Blood Pressure 160/104 H Blood Pressure Mean 122 Blood Pressure Source Blood Pressure Position Blood Pressure Location Pulse Ox 99 Oxygen Delivery Method Room Air MDM MDM MDM Narrative Medical decision making narrative: Patient presented with A-fib RVR, heart rate in the 120s. Patient has history of alcoholism. Patient was initially given 1 L of IV fluid. Heart rate improved slightly, patient was given a second liter of IV fluid along with Lopressor IV. Patient does not take any blood thinners, secondary to fall risk and alcoholism. Patient wants to be admitted for detox, call out to hospitalist for admission at [id number]. [id number], he recommended to use no other medication besides 2 L of fluid, second dose of Ativan and the Lopressor to help manage patient's blood pressure and heart rate, he will do further orders on the inpatient floor. He recommended admission to the PCU. Patient wants to be admitted for detox and help with alcoholism. Patient says that today I am ready Lab Data Attestation: I reviewed the patient's lab results. Labs: Laboratory Results - last 24 hr 05/13/23 05/13/23 09:11 09:30 WBC 6.4 RBC 4.22 L Hgb 14.7 Hct 41.8 MCV 99.1 H MCH 34.8 H MCHC 35.2 RDW Std Deviation 51.8 H RDW Coeff of Pati 14.3 Plt Count 155 MPV 10.1 Immature Gran % (Auto) 0.500 Neut % (Auto) 82.1 H Lymph % (Auto) 8.8 L [place] % (Auto) 7.5 Eos % (Auto) 0.6 Baso % (Auto) 0.5 Absolute Neuts (auto) 5.2 Absolute Lymphs (auto) 0.56 L Nucleated RBC % 0 Sodium 138 Potassium 3.7 Chloride 109 H Carbon Dioxide 23.0 Anion Gap 6 BUN 8 Creatinine 1.10 Estim Creat Clear Calc 57.86 Est GFR (MDRD) Af Amer 84 Est GFR (MDRD) Non-Af 70 BUN/Creatinine Ratio 7.3 L Glucose 254 H Calcium 8.2 L Magnesium 1.7 Total Bilirubin 0.60 AST 56 H ALT 39 Alkaline Phosphatase 114 Troponin I High Sens 14 Total Protein 6.4 Albumin 2.8 L Globulin 3.6 Albumin/Globulin Ratio 0.8 L Urine Color Yellow Urine Clarity Sl. Cloudy Urine pH 5.0 Ur Specific [place] 1.020 Urine Protein 30 H Urine Glucose (UA) 1000 H Urine Ketones 5 H Urine Occult Blood 25 H Urine Nitrite Negative Urine Bilirubin Negative Urine Urobilinogen Normal Ur Leukocyte Esterase 25 H Urine RBC 0-5 SEEN Urine WBC 0-5 SEEN Ur Squamous Epith Cells 0 SEEN Urine Bacteria 0 SEEN Urine Mucus 0 SEEN Urine Opiates Screen NEGATIVE Urine Methadone Screen NEGATIVE Ur Barbiturates Screen POSITIVE H Ur Phencyclidine Scrn NEGATIVE Ur Amphetamines Screen NEGATIVE MDMA (Ecstasy) Screen NEGATIVE U Benzodiazepines Scrn NEGATIVE Urine Cocaine Screen NEGATIVE U Cannabinoids Screen NEGATIVE Ur Drug Screen Comment Ethyl Alcohol < 3.0 EKG Initial EKG: Attestation: I personally reviewed and interpreted this EKG as follows: Comments: EKG interpretation. Irregular irregular rhythm at 121 beats a minute. Normal axis deviation. QTc of 468. Patient is in A-fib RVR, patient does have a history of A-fib. QTc of 468 Discharge Plan Dx/Rx/DC Orders Clinical Impression: Alcohol withdrawal, Nausea, Atrial fibrillation with rapid ventricular response, Dehydration, Alcohol dependence Disposition Disposition: Acute Care Hospital [facility] Discharge Date/Time: 05/13/23 12:24
--- NOTE | 2023-05-13 11:37 | CM.ED ---
Social Work SW contacted [facility]PS and spoke with Kick Boxer Betty. WALT reviewed information regarding patient presenting in ED for detox services, Betty added it patient's chart. Sofi ESPINO, STACIE
[2023-05-13] MEDS: LORazepam 2 MG/ML Syringe IV (11:50)
[2023-05-13] MEDS: Metoprolol Tartrate 5 MG/5 ML Vial IV (11:50)
[2023-05-13] MEDS: 0.9% Normal Saline 1,000 ML 999 ML IV (11:50)
--- NOTE | 2023-05-13 15:32 | ECHOD_ITS ---
Reason For Study: Atrial fib-flutter Procedure This was a 2D Doppler, Color Flow transthoracic echocardiogram. Exam performed portable in patient room. Left Ventricle Normal LV size. Left ventricular systolic function is normal. Unable to assess diastolic dysfunction due to arrhythmia. The estimated ejection fraction is 55 %. No regional wall motion abnormalities noted. Right Ventricle Normal RV size. Normal systolic function. Atria The left atrium is moderately enlarged. The right atrium is moderately enlarged. Mitral Valve Mild mitral annular calcification. The mitral valve chordae are thickened and/or calcified. There is no mitral valve stenosis. Mild (1+) mitral valve insufficiency. Tricuspid Valve Normal tricuspid valve. Mild to moderate (1-2+) tricuspid valve insufficiency. Right ventricular systolic pressure estimated to be 32 mmHg. Aortic Valve Trisinus/trileaflet aortic valve. No aortic valve insufficiency. Pulmonic Valve Normal pulmonic valve. Mild (1+) pulmonic valve insufficiency. Great Vessels Normal aortic root. Pericardium/Pleural No pericardial effusion. MMode/2D Measurements & Calculations LVIDd: 5.2 cm IVSd: 0.77 cm Ao root diam: 3.7 cm LVIDs: 4.3 cm LVPWd: 1.3 cm RVDd: 4.4 cm FS: 17.3 % LAV(MOD-bp): 96.5 ml LVAd ap4: 22.9 cm2 SV(MOD-sp4): 33.9 ml LAV(MOD-bp) Indexed: 45.0 ml/m2 LVLd ap4: 7.0 cm LAV(MOD-sp2): 119.2 ml EDV(MOD-sp4): 63.2 ml LAV(MOD-sp4): 77.2 ml EDV(sp4-el): 63.9 ml LVAs ap4: 14.4 cm2 LVLs ap4: 6.1 cm ESV(MOD-sp4): 29.3 ml ESV(sp4-el): 29.2 ml EF(MOD-sp4): 53.7 % EF(sp4-el): 54.3 % SV(sp4-el): 34.7 ml LA A4 area: 27.4 cm2 LA dimension(2D): 4.6 cm RA A4 area: 24.5 cm2 TAPSE: 1.8 cm Doppler Measurements & Calculations MV E max ju: 91.5 cm/sec MV V2 max: 86.0 cm/sec MV P1/2t max ju: 82.1 cm/sec MV max P.0 mmHg MV P1/2t: 66.8 msec MV V2 mean: 50.5 cm/sec MV mean P.2 mmHg MV dec slope: 360.1 cm/sec2 MV V2 VTI: 16.2 cm MVA(P1/2t): 3.3 cm2 Ao V2 max: 106.9 cm/sec LV V1 max: 79.4 cm/sec PA V2 max: 89.8 cm/sec Ao max P.6 mmHg LV V1 max P.5 mmHg Ao V2 mean: 77.6 cm/sec LV V1 mean P.5 mmHg Ao mean P.7 mmHg LV V1 mean: 58.0 cm/sec Ao V2 VTI: 18.9 cm LV V1 VTI: 14.3 cm AV (velocity ratio): 0.76 TR max ju: 269.6 cm/sec TR max P.1 mmHg ECHO/Echo Complete Interpretation Summary The estimated ejection fraction is 55 %. The left atrium is moderately enlarged. The right atrium is moderately enlarged. Mild mitral annular calcification. Mild (1+) mitral valve insufficiency. Mild to moderate (1-2+) tricuspid valve insufficiency. Right ventricular systolic pressure estimated to be 32 mmHg No significant change from previous study in March 2022. Ordering Physician: Turner Carl Referring Physician: Faheem Montalvo Performed By: Denise Rizvi and Student
[2023-05-13] MEDS: Phenobarbital 32.4 MG Tablet 64.8 MG PO ×3 (16:14→23:39)
[2023-05-13 16:37] LABS: Bedside Glucose 98 mg/dL (74-106)
[2023-05-13] MEDS: Atorvastatin Calcium 40 MG Tablet PO (20:21)
[2023-05-13] MEDS: Metoprolol Tartrate 100 MG Tablet PO (20:21)
[2023-05-13 21:56] LABS: Bedside Glucose 103 mg/dL (74-106)
[2023-05-14] MEDS: Phenobarbital 32.4 MG Tablet 64.8 MG PO ×6 (03:29→23:42)
[2023-05-14 03:30] VITALS: BP 116/81; PULSE 95; RESP 18; TEMP 36.6; O2SAT 99
[2023-05-14] MEDS: Nystatin Powder 15gm Bottle 1 APPLIC TOPICAL ×3 (06:49→22:31)
[2023-05-14 06:52] LABS: Bedside Glucose 105 mg/dL (74-106)
[2023-05-14 06:58] LABS: Thyroid Stim Hormone (TSH) 2.32 uIU/mL (0.358-3.74)
[2023-05-14 08:40] VITALS: BP 136/87; PULSE 103; RESP 18; TEMP 36.6; O2SAT 97
[2023-05-14] MEDS: Gabapentin 300 MG Capsule PO ×2 (08:55→21:39)
--- NOTE | 2023-05-14 08:55 | PCM.HP.STD ---
HPI - General General Date of Admission: 05/13/23 Date of Service: 05/13/23 Chief Complaint: Nausea and vomiting. HPI Narrative Patient seen and examined on the . This is a later documentation. LANIE DELONG, is a 72 M who presents with nausea and vomiting. States that he was that person and started drinking soon as he left the hospital on 26 April. He states that he drinks anywhere from 6-12 beers per day. His last drink was about 6:00 the day prior. Presented with nausea and vomiting and presented to the emergency room. Patient was found to be in A-fib with RVR and did receive metoprolol as well as lorazepam. He states that now is the time that he is going to finally get over his alcohol use. [facility] Medical History Admitted to alcohol detoxification center Alcohol abuse Alcohol dependence Alcohol dependence Alcoholic cardiomyopathy Anxiety and depression Atrial fibrillation Atrial flutter, paroxysmal Former tobacco use History of acute alcoholic hepatitis History of hypertension HTN (hypertension) Left atrial enlargement Obesity PAF (paroxysmal atrial fibrillation) Panic disorder Home Medications metoprolol tartrate 100 mg tablet 100 mg PO BID bp 10/03/19 [History Last Taken 11/06/22] atorvastatin 40 mg tablet 40 tab PO DAILY cholesterol 05/08/22 [History Last Taken 11/06/22] duloxetine 60 mg capsule,delayed release 60 cap PO DAILY mood 05/08/22 [History Last Taken Unknown] amlodipine 5 mg tablet 5 mg PO DAILY BP 12/15/22 [History Last Taken Unknown] folic acid 1 mg tablet 1 mg PO BREAKFAST Check with primary doctor 04/05/23 [History Last Taken Unknown] thiamine HCl (vitamin B1) 100 mg tablet (Vitamin B-1) 100 mg PO DAILYCM Check with primary doctor 04/05/23 [History Last Taken Unknown] clindamycin HCl 300 mg capsule (Cleocin HCl) 300 mg PO 4X/DAY 10 days #40 CAPSULES 04/12/23 [Rx Last Taken Unknown] Allergy/AdvReac Type Severity Reaction Status Date / Time No Known Allergies Allergy Verified 04/11/23 23:40 Family History Mother CVA (cerebral vascular accident) Father Cancer lung cancer Surgical History Hx of cholecystectomy Social History household members: none housing: apartment Smoking Status: Former smoker alcohol intake: current alcohol intake frequency: 3 or more drinks per day details: 24 12 ounce beers daily substance use type: does not use ROS ROS Narrative All review of systems were negative except as mentioned above in the history of present illness and the other review of systems. Vital Signs Vital Signs Vital Signs: 05/13/23 09:41 05/13/23 11:33 05/13/23 11:48 Temperature 36.2 C L 36.7 C 36.7 C Temperature Source Oral Temporal Temporal Pulse Rate 119 H 129 H 121 H Respiratory Rate 22 H 20 H 17 Respiratory Effort Respiratory Depth Respiratory Pattern Blood Pressure 147/119 H 152/129 H 160/104 H Blood Pressure Mean 128 136 122 Blood Pressure Source Monitor Monitor Blood Pressure Position Sitting Sitting Blood Pressure Location Right Arm Right Arm Pulse Ox 98 96 99 Oxygen Delivery Method Room Air Room Air Room Air 05/13/23 11:48 05/13/23 12:46 05/13/23 14:35 Temperature 36.7 C 36.7 C Temperature Source Temporal Oral Pulse Rate 121 H 106 H Respiratory Rate 17 14 Respiratory Effort Normal Non-Labored Respiratory Depth Normal Respiratory Pattern Normal Blood Pressure 160/104 H 165/117 H Blood Pressure Mean 122 133 Blood Pressure Source Monitor Blood Pressure Position Sitting Blood Pressure Location Right Arm Pulse Ox 99 98 Oxygen Delivery Method Room Air Nasal Cannula Room Air 05/13/23 17:12 05/13/23 20:15 05/13/23 20:21 Temperature 36.8 C 36.8 C Temperature Source Oral Oral Pulse Rate 96 101 H 101 H Respiratory Rate 18 18 Respiratory Effort Respiratory Depth Respiratory Pattern Blood Pressure 125/86 H 130/86 H Blood Pressure Mean 99 100 Blood Pressure Source Monitor Monitor Blood Pressure Position Semi-Fowlers Left Lateral Blood Pressure Location Right Arm Right Arm Pulse Ox 98 96 Oxygen Delivery Method Room Air Room Air 05/13/23 20:30 05/13/23 23:38 05/14/23 03:30 Temperature 36.7 C 36.6 C Temperature Source Oral Oral Pulse Rate 68 Respiratory Rate 18 Respiratory Effort Normal Non-Labored Respiratory Depth Normal Respiratory Pattern Normal Blood Pressure 132/88 H Blood Pressure Mean 102 Blood Pressure Source Monitor Blood Pressure Position Semi-Fowlers Blood Pressure Location Right Arm Pulse Ox 97 Oxygen Delivery Method Room Air Room Air 05/14/23 03:30 05/14/23 08:40 Temperature 36.6 C 36.6 C Temperature Source Oral Oral Pulse Rate 95 103 H Respiratory Rate 18 18 Respiratory Effort Respiratory Depth Respiratory Pattern Blood Pressure 116/81 H 136/87 H Blood Pressure Mean 92 103 Blood Pressure Source Monitor Blood Pressure Position Supine Blood Pressure Location Right Arm Pulse Ox 99 97 Oxygen Delivery Method Room Air Room Air Weight Weight: 101.8 kg Body Mass Index (BMI) 34.1 Physical Exam Const Constitutional Narrative: Lying on his left side. Flat affect. Minimal eye contact. HEENT normocephalic and head/scalp atraumatic Neck no lymphadenopathy Resp normal respiratory effort and no retractions Cardio regular rate, regular rhythm, S1 normal heart sound and S2 normal heart sound GI normal to inspection, nondistended, normoactive bowel sounds, soft to palpation, non-tender and non-distended Extremity normal to inspection Results Lab / Micro Data 05/13/23 09:11 05/13/23 09:11 Labs: Laboratory Results - last 24 hr 05/13/23 09:11: WBC 6.4, RBC 4.22 L, Hgb 14.7, Hct 41.8, MCV 99.1 H, MCH 34.8 H, MCHC 35.2, RDW Std Deviation 51.8 H, RDW Coeff of Pati 14.3, Plt Count 155, MPV 10.1, Immature Gran % (Auto) 0.500, Neut % (Auto) 82.1 H, Lymph % (Auto) 8.8 L, [place] % (Auto) 7.5, Eos % (Auto) 0.6, Baso % (Auto) 0.5, Absolute Neuts (auto) 5.2, Absolute Lymphs (auto) 0.56 L, Nucleated RBC % 0, Sodium 138, Potassium 3.7, Chloride 109 H, Carbon Dioxide 23.0, Anion Gap 6, BUN 8, Creatinine 1.10, Estim Creat Clear Calc 57.86, Est GFR (MDRD) Af Amer 84, Est GFR (MDRD) Non-Af 70, BUN/Creatinine Ratio 7.3 L, Glucose 254 H, Calcium 8.2 L, Magnesium 1.7, Total Bilirubin 0.60, AST 56 H, ALT 39, Alkaline Phosphatase 114, Troponin I High Sens 14, Total Protein 6.4, Albumin 2.8 L, Globulin 3.6, Albumin/Globulin Ratio 0.8 L, Ethyl Alcohol < 3.0 05/13/23 09:30: Urine Color Yellow, Urine Clarity Sl. Cloudy, Urine pH 5.0, Ur Specific [place] 1.020, Urine Protein 30 H, Urine Glucose (UA) 1000 H, Urine Ketones 5 H, Urine Occult Blood 25 H, Urine Nitrite Negative, Urine Bilirubin Negative, Urine Urobilinogen Normal, Ur Leukocyte Esterase 25 H, Urine RBC 0-5 SEEN, Urine WBC 0-5 SEEN, Ur Squamous Epith Cells 0 SEEN, Urine Bacteria 0 SEEN, Urine Mucus 0 SEEN, Urine Opiates Screen NEGATIVE, Urine Methadone Screen NEGATIVE, Ur Barbiturates Screen POSITIVE H, Ur Phencyclidine Scrn NEGATIVE, Ur Amphetamines Screen NEGATIVE, MDMA (Ecstasy) Screen NEGATIVE, U Benzodiazepines Scrn NEGATIVE, Urine Cocaine Screen NEGATIVE, U Cannabinoids Screen NEGATIVE, Ur Drug Screen Comment 05/13/23 16:16: POC Glucose 98 05/13/23 20:26: POC Glucose 103 05/14/23 05:43: TSH 2.32 05/14/23 06:35: POC Glucose 105 Assessment & Plan Assessment/Plan (1) Alcohol withdrawal: QUALIFIERS: Complication of substance-induced condition: uncomplicated Qualified Code(s): F10.930 - Alcohol use, unspecified with withdrawal, uncomplicated PLAN: Unclear if patient was actually going through alcohol withdrawal or not but was having nausea and vomiting. His alcohol level was below upon arrival. Patient started on phenobarbital as well as other agents to help with his withdrawal symptoms Addiction medicine to see. Thiamine folic acid Patient has limited insight and I try to get him to express why this time is can be a time that he gets over his alcoholism. He did not have an answer. His affect was rather flat. There is been concerns about the patient's medical decision making capacity, however the patient during previous encounters been alert and oriented x3. Patient will likely return home to resume drinking alcohol again and to have this process restarted all over again. (2) Atrial fibrillation with rapid ventricular response: PLAN: May be reactive. From the alcohol withdrawal. Continue with his metoprolol tartrate Patient high risk for bleeding with anticoagulation given his alcoholism. PLAN: Plan Chronic conditions Hyperlipidemia: Continue with atorvastatin VTE prophylaxis: Low risk. Ambulation as able. Charges/Coding Visit Charges Inpatient E&M: 74780 Init Hosp L2
[2023-05-14 08:56] VITALS: BP 136/87; PULSE 103
[2023-05-14] MEDS: Ondansetron 8 MG Tablet PO ×2 (08:56→21:38)
[2023-05-14] MEDS: Thiamine Hydrochloride 100 MG Tablet PO (08:56)
[2023-05-14] MEDS: Metoprolol Tartrate 100 MG Tablet PO ×2 (08:56→21:38)
[2023-05-14] MEDS: Enoxaparin 40 MG/0.4 ML Syringe SC (08:57)
[2023-05-14] MEDS: Aspirin 81 MG TAB.CHEW PO (08:57)
[2023-05-14] MEDS: amLODIPine 5 MG Tablet PO (08:57)
[2023-05-14] MEDS: Folic Acid 1 MG Tablet PO (08:57)
[2023-05-14] MEDS: Acetaminophen 500 MG Tablet PO (08:58)
--- NOTE | 2023-05-14 09:01 | PCM.PN.HOSP ---
Subjective Subjective Still states that time will work for abstaining from alcohol. Objective Data Objective Data Vital Signs: Vital Signs Temp Pulse Resp BP Pulse Ox O2 Del Method 36.6 C 103 H 18 136/87 H 97 Room Air 05/14/23 08:40 05/14/23 08:56 05/14/23 08:40 05/14/23 08:56 05/14/23 08:40 05/14/23 08:40 Oxygen Delivery Method Room Air Weight: 101.8 kg Body Mass Index (BMI) 34.1 Intake & Output: Intake and Output for Last 24 Hours 05/12/23 05/13/23 05/14/23 23:59 23:59 23:59 Intake Total 2240 / 2240 Balance 2240 / 2240 Lab / Micro Data 05/13/23 09:11 05/13/23 09:11 Labs: Laboratory Results - last 24 hr 05/13/23 09:11: WBC 6.4, RBC 4.22 L, Hgb 14.7, Hct 41.8, MCV 99.1 H, MCH 34.8 H, MCHC 35.2, RDW Std Deviation 51.8 H, RDW Coeff of Pati 14.3, Plt Count 155, MPV 10.1, Immature Gran % (Auto) 0.500, Neut % (Auto) 82.1 H, Lymph % (Auto) 8.8 L, Gilchrist % (Auto) 7.5, Eos % (Auto) 0.6, Baso % (Auto) 0.5, Absolute Neuts (auto) 5.2, Absolute Lymphs (auto) 0.56 L, Nucleated RBC % 0, Sodium 138, Potassium 3.7, Chloride 109 H, Carbon Dioxide 23.0, Anion Gap 6, BUN 8, Creatinine 1.10, Estim Creat Clear Calc 57.86, Est GFR (MDRD) Af Amer 84, Est GFR (MDRD) Non-Af 70, BUN/Creatinine Ratio 7.3 L, Glucose 254 H, Calcium 8.2 L, Magnesium 1.7, Total Bilirubin 0.60, AST 56 H, ALT 39, Alkaline Phosphatase 114, Troponin I High Sens 14, Total Protein 6.4, Albumin 2.8 L, Globulin 3.6, Albumin/Globulin Ratio 0.8 L, Ethyl Alcohol < 3.0 05/13/23 09:30: Urine Color Yellow, Urine Clarity Sl. Cloudy, Urine pH 5.0, Ur Specific Vendor 1.020, Urine Protein 30 H, Urine Glucose (UA) 1000 H, Urine Ketones 5 H, Urine Occult Blood 25 H, Urine Nitrite Negative, Urine Bilirubin Negative, Urine Urobilinogen Normal, Ur Leukocyte Esterase 25 H, Urine RBC 0-5 SEEN, Urine WBC 0-5 SEEN, Ur Squamous Epith Cells 0 SEEN, Urine Bacteria 0 SEEN, Urine Mucus 0 SEEN, Urine Opiates Screen NEGATIVE, Urine Methadone Screen NEGATIVE, Ur Barbiturates Screen POSITIVE H, Ur Phencyclidine Scrn NEGATIVE, Ur Amphetamines Screen NEGATIVE, MDMA (Ecstasy) Screen NEGATIVE, U Benzodiazepines Scrn NEGATIVE, Urine Cocaine Screen NEGATIVE, U Cannabinoids Screen NEGATIVE, Ur Drug Screen Comment 05/13/23 16:16: POC Glucose 98 05/13/23 20:26: POC Glucose 103 05/14/23 05:43: TSH 2.32 05/14/23 06:35: POC Glucose 105 Physical Exam Const Constitutional Narrative: flat affect. non-toxic. afebrile. HEENT head/scalp atraumatic and moist oral mucous membranes Assessment & Plan Assessment/Plan (1) Alcohol withdrawal: QUALIFIERS: Complication of substance-induced condition: uncomplicated Qualified Code(s): F10.930 - Alcohol use, unspecified with withdrawal, uncomplicated PLAN: Unclear if patient was actually going through alcohol withdrawal or not but was having nausea and vomiting. His alcohol level was below upon arrival. Patient started on phenobarbital as well as other agents to help with his withdrawal symptoms Addiction medicine to see. Thiamine folic acid Patient has limited insight and I try to get him to express why this time is can be a time that he gets over his alcoholism. He did not have an answer. His affect was rather flat. There is been concerns about the patient's medical decision making capacity, however the patient during previous encounters been alert and oriented x3. Patient will likely return home to resume drinking alcohol again and to have this process restarted all over again. 05/14: I discussed with the patient about the frequency of his visits and his rapid resumption of alcohol upon discharge. I explained the futility of treating him in the hospital given that he has no willingness to quit once he goes home. I told him that we will likely need to establish criteria to admit him to hospital for his desire to get clear from alcohol if he goes home again and quickly resumes drinking like has done on numerous occasions. He keeps saying he will, I told him he need to prove it. (2) Atrial fibrillation with rapid ventricular response: PLAN: Resolved May be reactive. From the alcohol withdrawal. Continue with his metoprolol tartrate Patient high risk for bleeding with anticoagulation given his alcoholism. PLAN: Plan Chronic conditions Hyperlipidemia: Continue with atorvastatin VTE prophylaxis: Low risk. Ambulation as able. Greater than 35 minutes of which greater than 50% of time was counseling patient about his alcoholism, his lack of actual effort to try to quit alcohol upon discharge and also reinforcing that he actually needs to be an active participate in his withdrawal which she has thus far not been. Charges/Coding Visit Charges Inpatient E&M: 03569 Subs Hosp L2
[2023-05-14 09:23] LABS: Hemoglobin A1c 5.1 % (3.8-5.6)
[2023-05-14 12:00] LABS: Bedside Glucose 111 mg/dL (74-106)
--- NOTE | 2023-05-14 12:09 | ADDICTION ---
This publications writer met with PT to conduct ASAM, MSE, AUDIT assessments and to plan for d/c. PT A+Ox4 and participated actively. All assessments completed and placed in PT's chart. Pt does not know what to do. He knows that he cannot continue to drink like this. He know that it is effecting him physically. He is unsure of what he wants. TW and Pt have discussed many different treatment options in hx and pt has not attempted to do any of them. Pt's request is for clinician to talk with him when he calls. Pt asked TW to find a place for his turtle. TW will discuss this again with Pt on Thursday.
[2023-05-14 16:33] VITALS: BP 123/96; PULSE 96; RESP 16; TEMP 36.8; O2SAT 97
[2023-05-14] MEDS: hydrOXYzine PAM 25 MG Capsule 50 MG PO (16:41)
[2023-05-14 17:09] LABS: Bedside Glucose 120 mg/dL (74-106)
[2023-05-14 20:30] VITALS: BP 135/88; PULSE 90; RESP 18; TEMP 36.8; O2SAT 100
[2023-05-14 21:38] VITALS: BP 135/86; PULSE 90
[2023-05-14] MEDS: Atorvastatin Calcium 40 MG Tablet PO (21:38)
[2023-05-14] MEDS: traZODone 100 MG Tablet PO (21:38)
[2023-05-14] MEDS: LORazepam 1 MG Tablet 2 MG PO (23:31)
[2023-05-15 00:01] LABS: Bedside Glucose 97 mg/dL (74-106)
[2023-05-15 02:00] VITALS: BP 135/88; PULSE 86; RESP 18; TEMP 36.6; O2SAT 98
[2023-05-15] MEDS: Phenobarbital 32.4 MG Tablet 64.8 MG PO ×3 (04:30→12:14)
[2023-05-15] MEDS: LORazepam 1 MG Tablet 2 MG PO ×3 (04:30→10:17)
[2023-05-15] MEDS: LORazepam 2 MG/ML Syringe IV (06:17)
[2023-05-15 08:00] VITALS: BP 113/69; PULSE 78; RESP 14; TEMP 36; O2SAT 95
--- NOTE | 2023-05-15 08:15 | PCM.PN.HOSP ---
Reason for Visit Reason for Visit: Diagnoses Alcohol use, unspecified with withdrawal, uncomplicated (05/13/23) Unspecified atrial fibrillation (05/13/23) Subjective Subjective States that he wants to cut back on alcohol, not abstain. Objective Data Objective Data Vital Signs: Vital Signs Temp Pulse Resp BP Pulse Ox O2 Del Method 36.6 C 86 18 135/88 H 98 Room Air 05/15/23 02:00 05/15/23 02:00 05/15/23 02:00 05/15/23 02:00 05/15/23 02:00 05/15/23 02:00 Oxygen Delivery Method Room Air Weight: 101.8 kg Body Mass Index (BMI) 34.1 Intake & Output: Intake and Output for Last 24 Hours 05/13/23 05/14/23 05/15/23 23:59 23:59 23:59 Intake Total 2240 / 2240 1445 / 1445 1000 / 1000 Balance 2240 / 2240 1445 / 1445 1000 / 1000 Lab / Micro Data 05/13/23 09:11 05/13/23 09:11 Labs: Laboratory Results - last 24 hr 05/14/23 05:43: Hemoglobin A1c 5.1 05/14/23 11:29: POC Glucose 111 H 05/14/23 16:31: POC Glucose 120 H 05/14/23 23:44: POC Glucose 97 Radiography Diagnostic Testing: Radiology Impression Echocardiogram 05/13/23 15:32 Interpretation Summary The estimated ejection fraction is 55 %. The left atrium is moderately enlarged. The right atrium is moderately enlarged. Mild mitral annular calcification. Mild (1+) mitral valve insufficiency. Mild to moderate (1-2+) tricuspid valve insufficiency. Right ventricular systolic pressure estimated to be 32 mmHg No significant change from previous study in March 2022. Ordering Physician: Turner Carl Referring Physician: Faheem Montalvo Performed By: Denise Rizvi and Student Physical Exam Const alert and no apparent distress Constitutional Narrative: up in chair. Psych affect normal Assessment & Plan Assessment/Plan (1) Alcohol withdrawal: QUALIFIERS: Complication of substance-induced condition: uncomplicated Qualified Code(s): F10.930 - Alcohol use, unspecified with withdrawal, uncomplicated PLAN: Unclear if patient was actually going through alcohol withdrawal or not but was having nausea and vomiting. His alcohol level was below upon arrival. Patient started on phenobarbital as well as other agents to help with his withdrawal symptoms Addiction medicine to see. Thiamine folic acid Patient has limited insight and I try to get him to express why this time is can be a time that he gets over his alcoholism. He did not have an answer. His affect was rather flat. There is been concerns about the patient's medical decision making capacity, however the patient during previous encounters been alert and oriented x3. Patient will likely return home to resume drinking alcohol again and to have this process restarted all over again. 05/14: I discussed with the patient about the frequency of his visits and his rapid resumption of alcohol upon discharge. I explained the futility of treating him in the hospital given that he has no willingness to quit once he goes home. I told him that we will likely need to establish criteria to admit him to hospital for his desire to get clear from alcohol if he goes home again and quickly resumes drinking like has done on numerous occasions. He keeps saying he will, I told him he need to prove it. 05/15: Patient now stating he does want to drink upon discharge. I gave him several opportunities to state otherwise, but continues to come back to he is going to drink alcohol upon discharge. I informed him there is no further utility of keeping him in the hospital if his plan is continue drinking. I told him several times that I recommend he abstain from alcohol completely. I encouraged him to follow up with [facility] upon discharge. Patient at this time has no genuine interest in quitting alcohol. I feel in the future that he not be admitted to the hospital for alcohol detox unless he has signs and symptoms of acute alcohol withdrawal and/or another medical etiology. (2) Atrial fibrillation with rapid ventricular response: PLAN: Resolved May be reactive. From the alcohol withdrawal. Continue with his metoprolol tartrate Patient high risk for bleeding with anticoagulation given his alcoholism. PLAN: Plan Chronic conditions Hyperlipidemia: Continue with atorvastatin VTE prophylaxis: Low risk. Ambulation as able. Greater than 50 minutes of which greater than 50% of time was counseling patient about his alcoholism.
[2023-05-15] MEDS: Thiamine Hydrochloride 100 MG Tablet PO (08:18)
[2023-05-15] MEDS: Aspirin 81 MG TAB.CHEW PO (08:18)
[2023-05-15] MEDS: Folic Acid 1 MG Tablet PO (08:18)
[2023-05-15 08:43] LABS: Bedside Glucose 120 mg/dL (74-106)
[2023-05-15] MEDS: amLODIPine 5 MG Tablet PO (10:17)
[2023-05-15 10:18] VITALS: BP 113/69; PULSE 78
[2023-05-15] MEDS: Metoprolol Tartrate 100 MG Tablet PO (10:18)
[2023-05-15] MEDS: Enoxaparin 40 MG/0.4 ML Syringe SC (10:18)
--- NOTE | 2023-05-15 10:53 | DCINST_ITS ---
Discharge Instructions Diet Discharge Diet: No restrictions Follow Up Care Test Results: Test results from this visit will be discussed in further detail at your follow- up appointment, if applicable. Discharge Plan Admission Admit Date/Time: 05/13/23 14:52 Primary Reason for Your Visit: atrial fibrillation. Attending Provider: Turner Carl Primary Care Provider: Faheem Montalvo Instructions Additional Instructions / Restrictions: Stop drinking alcohol. No alcohol whatsoever. Not a drop. Not a sip. None. Follow up with addiction services such as [facility]. Discharge Orders/Prescriptions Prescriptions: New aspirin 81 mg Tablet,Chewable 81 mg PO BREAKFAST Qty: 0 0RF Continued metoprolol tartrate 100 mg tablet 100 mg PO BID atorvastatin 40 mg tablet 40 tab PO DAILY Patient Comments: 1 tablet by mouth as directed amlodipine 5 mg tablet 5 mg PO DAILY thiamine HCl (vitamin B1) [Vitamin B-1] 100 mg tablet 100 mg PO DAILYCM folic acid 1 mg tablet 1 mg PO BREAKFAST Discontinued duloxetine 60 mg capsule,delayed release(DR/EC) 60 cap PO DAILY clindamycin HCl [Cleocin HCl] 300 mg capsule 300 mg PO 4X/DAY 10 Days Qty: 40 0RF Referrals / Follow Up: Faheem Montalvo MD [Primary Care Provider] - Within 2 Weeks Disposition Disposition (needs filled in before D/C Order can be placed): Home, Self Care
--- NOTE | 2023-05-15 10:56 | DS.PCM_ITS ---
Providers Date of Admission: 05/13/23 Primary Care Physician: Faheem Montalvo MD Reason For Visit: ETOH WITHDRAWAL Diagnosis Discharge Diagnosis (1) Alcohol withdrawal: Status: Acute Code(s): F10.939 - Alcohol use, unspecified with withdrawal, unspecified Qualifiers: Complication of substance-induced condition: uncomplicated Qualified Code(s): F10.930 - Alcohol use, unspecified with withdrawal, uncomplicated Plan: Unclear if patient was actually going through alcohol withdrawal or not but was having nausea and vomiting. His alcohol level was below upon arrival. Patient started on phenobarbital as well as other agents to help with his withdrawal symptoms Addiction medicine to see. Thiamine folic acid Patient has limited insight and I try to get him to express why this time is can be a time that he gets over his alcoholism. He did not have an answer. His affect was rather flat. There is been concerns about the patient's medical decision making capacity, however the patient during previous encounters been alert and oriented x3. Patient will likely return home to resume drinking alc ohol again and to have this process restarted all over again. 05/14: I discussed with the patient about the frequency of his visits and his rapid resumption of alcohol upon discharge. I explained the futility of treating him in the hospital given that he has no willingness to quit once he goes home. I told him that we will likely need to establish criteria to admit him to hospital for his desire to get clear from alcohol if he goes home again and quickly resumes drinking like has done on numerous occasions. He keeps saying he will, I told him he need to prove it. 05/15: Patient now stating he does want to drink upon discharge. I gave him several opportunities to state otherwise, but continues to come back to he is going to drink alcohol upon discharge. I informed him there is no further utility of keeping him in the hospital if his plan is continue drinking. I told him several times that I recommend he abstain from alcohol completely. I encouraged him to follow up with [facility] upon discharge. Patient at this time has no genuine interest in quitting alcohol. I feel in the future that he not be admitted to the hospital for alcohol detox unless he has signs and symptoms of acute alcohol withdrawal and/or another medical etiology. (2) Atrial fibrillation with rapid ventricular response: Status: Acute Code(s): I48.91 - Unspecified atrial fibrillation Plan: Resolved May be reactive. From the alcohol withdrawal. Continue with his metoprolol tartrate Patient high risk for bleeding with anticoagulation given his alcoholism. ASA daily. Not ideal compared to anticoagulation, but less risk due to his alcoholism. Plan Chronic conditions * Hyperlipidemia: Continue with atorvastatin Greater than 50 minutes of which greater than 50% of time was counseling patient about his alcoholism. Medications at Discharge Home Medications metoprolol tartrate 100 mg tablet 100 mg PO BID bp 10/03/19 atorvastatin 40 mg tablet 40 tab PO DAILY cholesterol 05/08/22 amlodipine 5 mg tablet 5 mg PO DAILY BP 12/15/22 folic acid 1 mg tablet 1 mg PO BREAKFAST Check with primary doctor 04/05/23 thiamine HCl (vitamin B1) 100 mg tablet (Vitamin B-1) 100 mg PO DAILYCM Check with primary doctor 04/05/23 aspirin 81 mg chewable tablet 81 mg PO BREAKFAST #0 tabs 05/15/23 Hospital Course Operations None Procedures None Summary of Care Provided Minutes Spent on Discharge: 50 Weight / BMI Weight Weight: 101.8 kg Body Mass Index (BMI) 34.1 ABG / Lab / Microbiology Data 05/13/23 09:11 05/13/23 09:11 Laboratory: Laboratory Results - last 24 hr 05/14/23 11:29: POC Glucose 111 H 05/14/23 16:31: POC Glucose 120 H 05/14/23 23:44: POC Glucose 97 05/15/23 08:11: POC Glucose 120 H Radiography Diagnostic Testing: Radiology Impression Echocardiogram 05/13/23 15:32 Interpretation Summary The estimated ejection fraction is 55 %. The left atrium is moderately enlarged. The right atrium is moderately enlarged. Mild mitral annular calcification. Mild (1+) mitral valve insufficiency. Mild to moderate (1-2+) tricuspid valve insufficiency. Right ventricular systolic pressure estimated to be 32 mmHg No significant change from previous study in March 2022. Ordering Physician: Turner Carl Referring Physician: Faheem Montalvo Performed By: Denise Rizvi and Student D/C Instructions Discharge Diet: No restrictions Meaningful Use Info Meaningful Use Diagnoses (Choose all that apply): None applicable Discharge Plan Admission Admit Date/Time: 05/13/23 14:52 Primary Reason for Your Visit: atrial fibrillation. Attending Provider: Turner Carl Primary Care Provider: Faheem Montalvo Instructions Additional Instructions / Restrictions: Stop drinking alcohol. No alcohol whatsoever. Not a drop. Not a sip. None. Follow up with addiction services such as [facility]. Discharge Orders/Prescriptions Prescriptions: New aspirin 81 mg Tablet,Chewable 81 mg PO BREAKFAST Qty: 0 0RF Continued metoprolol tartrate 100 mg tablet 100 mg PO BID atorvastatin 40 mg tablet 40 tab PO DAILY Patient Comments: 1 tablet by mouth as directed amlodipine 5 mg tablet 5 mg PO DAILY thiamine HCl (vitamin B1) [Vitamin B-1] 100 mg tablet 100 mg PO DAILYCM folic acid 1 mg tablet 1 mg PO BREAKFAST Discontinued duloxetine 60 mg capsule,delayed release(DR/EC) 60 cap PO DAILY clindamycin HCl [Cleocin HCl] 300 mg capsule 300 mg PO 4X/DAY 10 Days Qty: 40 0RF Referrals / Follow Up: Faheem Montalvo MD [Primary Care Provider] - Within 2 Weeks Disposition Disposition (needs filled in before D/C Order can be placed): Home, Self Care Charges/Coding Visit Charges Inpatient E&M: 96128 Disch Hosp >30min
[2023-05-15 12:06] LABS: Bedside Glucose 108 mg/dL (74-106)
--- NOTE | 2023-05-15 12:08 | PHA.DC_ITS ---
Pharmacy [facility] Pharm[facility] Service has performed discharge medication reconciliation and counseling for this patient. The patient was counseled on the following discharge medications and changes in medications for homegoing were reviewed. 1. ASPIRIN The Reason for Use, instructions for use, and potential side effects were reviewed for all new medications. The patient's questions regarding all of their medications were answered. The patient was not able to adequately demonstrate understanding. The patient's discharge medication list was reviewed for discrepancies and discrepancies were resolved. Medications at Discharge Home Medications metoprolol tartrate 100 mg tablet 100 mg PO BID bp 10/03/19 atorvastatin 40 mg tablet 40 tab PO DAILY cholesterol 05/08/22 amlodipine 5 mg tablet 5 mg PO DAILY BP 12/15/22 folic acid 1 mg tablet 1 mg PO BREAKFAST Check with primary doctor 04/05/23 thiamine HCl (vitamin B1) 100 mg tablet (Vitamin B-1) 100 mg PO DAILYCM Check with primary doctor 04/05/23 aspirin 81 mg chewable tablet 81 mg PO BREAKFAST #0 tabs 05/15/23
--- NOTE | 2023-05-15 12:16 | ADDICTION ---
Stopped into visit pt. Pt reports that the medication he was given has made me feel loopy. Pt was talking in a lower tone and was coloring. I asked pt what TW name is. Pt is familiar with TW name due to his frequent admissions. He reported that TW name was Butch. Pt reported that the date was November 16. he reported that he thinks he may need one more day without the medication to feel ''less loopy.
--- NOTE | 2023-05-15 13:55 | CASEMGMT ---
WALT spoke with Giuseppe from and she does not feel patient is safe to go home as he is confused. SW let physician know and he noted the concern, but plans on discharging patient. Patient does not have a ride home. Shank Skinner Adri called [facility] van to arrange transport. However, it was determined SW will arrange transportation through patient's insurance as SW has not worked with patient, therapy was not ordered, and there was not much information in nursing handoff about patient's physical abilities. WALT called [facility] and arranged for patient to be picked up at 4p via wheelchair van. SW notified RN. SW did talk with patient and let him know SW will arrange transportation through patient's insurance. Patient did not know who Giuseppe from was when SW asked. SW is concerned as patient does not seem steady and does seem confused. SW notified physician. WALT called Maritza from and notified her of discharge. WALT also called Adult Protective Services and left a message for Silvano explaining situation and asked APS could do a well check on patient. Lisa Abreu SCRIPT MANAGER STACIE
== END 2023-05-15 12:54 | disposition home or self-care (01) | DRG 897 ==
LOC: ED 11:40 → PCU 15:16
PROVIDERS: Emergency Provider Emergency Medicine; PCP Family Medicine
DX: F10.239 Alcohol dependence with withdrawal, unspecified (principal); I42.6 Alcoholic cardiomyopathy; I48.91 Unspecified atrial fibrillation; I10 Essential (primary) hypertension; E86.0 Dehydration; E78.5 Hyperlipidemia, unspecified; R11.0 Nausea; Z87.891 Personal history of nicotine dependence; Z82.3 Family history of stroke; Y90.9 Presence of alcohol in blood, level not specified
CPT/HCPCS: 36415; 80053; 80307; 81001; 82077; 82962; 83036; 83735; 84443; 84484; 85025; 93005; 93306; 99285; J7030; J7120; A4216; J2405

== ENCOUNTER 2023-06-02 09:19 | Inpatient (IN) | payer MEDICARE, MEDICAID, SELFPAY ==
[2023-06-02] VITALS (20 sets, daily range): BP systolic 108–194; BP diastolic 67–164; PULSE 54–152; RESP 16–29; TEMP 36.1–37; O2SAT 91–99; BMI 34.8; BMI 73.7
--- NOTE | 2023-06-02 09:27 | CT_ITS ---
STUDY: CT CHEST, ABDOMEN T PELVIS WITH CONTRAST REASON FOR EXAM: Male, 72 years old. Right sided trauma, pain. RADIATION DOSAGE (If Supplied By Facility): CTDIvol = ( 22.73 ) mGy, DLP = ( 2314.32 ) mGycm TECHNIQUE: Transaxial imaging was performed following intravenous administration of IV 100mL Isovue-370. Individualized dose optimization techniques were used for this CT. COMPARISON: No relevant priors. FINDINGS: CHEST Mild degree of increased markings at the lung bases suggestive of atelectasis. Elevation of the left hemidiaphragm. There is no demonstrated pleural abnormality. Normal heart and pericardium. No coronary artery calcification is seen. Normal mediastinum. Normal hilar regions. Normal unenhanced pulmonary arteries. Normal aorta arch and descending thoracic aorta. There is demineralization of the thoracic spine. Loss of height of the T11 and T12 vertebrae. Diffuse fatty infiltration of the liver. ABDOMEN There is decreased attenuation of the liver consistent with steatosis. There are surgical clips in the gallbladder fossa consistent with a prior cholecystectomy. Normal spleen. Normal pancreas. Normal bilateral adrenal glands. Normal right kidney. 1 some mucous cyst in the mid medial portion of the left kidney. Normal visualized stomach. Normal small intestine. Normal colon. The appendix is visualized and appears normal. There is scattered atherosclerotic calcification of the abdominal aorta, without a demonstrated aneurysm. Normal inferior vena cava. Normal retroperitoneum. Normal abdominal wall. There are diffuse degenerative changes of the visualized lumbar spine. Almost complete collapse of the L1 vertebrae. Loss of height of the T12 vertebrae. PELVIS Mild degree of the bladder distention and thickened gallbladder wall. Prostatic calcifications. There is diffuse atherosclerotic calcification of the pelvic arteries. CT/CT Chest, Abd, Pel w/Contrast IMPRESSION: Mild degree of bibasilar atelectasis. Almost complete collapse of the L1 vertebrae and partial collapse of the T12 vertebrae. Diffuse fatty infiltration of the liver. Small left renal cyst. Electronically Signed: Brian Hernandez MD at 11:06 EDT ,
--- NOTE | 2023-06-02 09:28 | EKG12_ITS ---
Test Reason : CP Blood Pressure : / mmHG Vent. Rate : 138 BPM Atrial Rate : 000 BPM P-R Int : 000 ms QRS Dur : 084 ms QT Int : 278 ms P-R-T Axes : 000 025 075 degrees QTc Int : 421 ms Atrial fibrillation with rapid ventricular response with premature ventricular or aberrantly conducte d complexes Low voltage QRS Abnormal ECG Confirmed by NATHAN MEJIA, MARTITA ([id number]), primer expeditor and drier MELVI ALBA ([id number]) on 06/04/2023 8:52:44 AM Referred By: PRANEETH Confirmed By:AVE EVANS MD
--- NOTE | 2023-06-02 09:34 | EX.ED.DYSGE1 ---
HPI History of Present Illness Chief Complaint: Palpitations Informant: patient Narrative Narrative: Patient is a 72-year-old male with history of longstanding alcohol abuse with multiple admissions for alcohol detox this year alone (most recently 2 weeks ago) as well as atrial fibrillation, not on any anticoagulation due to his alcoholism and increased risk of falls presenting with chest pain. Patient states that about 3 days ago the door to his bedroom was locked and he was trying to get it open. He was putting his weight on it when it suddenly opened and he fell through. He does not remember exactly how he landed but he notes since then he has been having right-sided chest pain, rib pain and abdominal pain. Patient called EMS this morning because of this pain. He states it makes him feel short of breath. It is worse when he takes a deep breath. He also notes that he has daily nausea that gets better when he drinks beer. He states his bowel movements are loose but denies any abnormal color to them. He denies hitting his head and states that the only thing that wrong with him. Patient is interested in alcohol detox but states he was told that he cannot come back for alcohol detox anymore. Patient states that he drinks 12-15 blood ice beers daily and is already had 2 beers this morning. Does not feel like he is actively withdrawing at this time. Did not take his morning medications and is uncertain about what he actually takes. No other complaints or concerns at this time. [facility] Medical History Admitted to alcohol detoxification center Alcohol abuse Alcohol dependence Alcohol dependence Alcohol dependence Alcoholic cardiomyopathy Anxiety and depression Atrial fibrillation Atrial flutter, paroxysmal Former tobacco use History of acute alcoholic hepatitis History of hypertension HTN (hypertension) Left atrial enlargement Obesity PAF (paroxysmal atrial fibrillation) Panic disorder Home Medications metoprolol tartrate 100 mg tablet 100 mg PO BID bp 10/03/19 [History Last Taken 11/06/22] atorvastatin 40 mg tablet 40 tab PO DAILY cholesterol 05/08/22 [History Last Taken 11/06/22] amlodipine 5 mg tablet 5 mg PO DAILY BP 12/15/22 [History Last Taken Unknown] folic acid 1 mg tablet 1 mg PO BREAKFAST Check with primary doctor 04/05/23 [History Last Taken Unknown] thiamine HCl (vitamin B1) 100 mg tablet (Vitamin B-1) 100 mg PO DAILYCM Check with primary doctor 04/05/23 [History Last Taken Unknown] aspirin 81 mg chewable tablet 81 mg PO BREAKFAST #0 tabs 05/15/23 [Rx Last Taken Unknown] Allergy/AdvReac Type Severity Reaction Status Date / Time No Known Allergies Allergy Verified 04/11/23 23:40 Family History Mother CVA (cerebral vascular accident) Father Cancer lung cancer Surgical History Hx of cholecystectomy Social History household members: none housing: apartment Smoking Status: Former smoker alcohol intake: current alcohol intake frequency: 3 or more drinks per day details: 24 12 ounce beers daily substance use type: does not use ROS ROS ED Constitutional Constitutional ED: Denies chills Eyes Eyes: Denies change in vision Cardiovascular Cardiovascular: Reports chest pain, palpitations and racing heartbeat Respiratory/Chest Respiratory/Chest: Reports dyspnea; Denies cough Gastrointestinal Gastrointestinal: Reports abdominal pain and nausea; Denies diarrhea, melena or vomiting Genitourinary Genitourinary ED: Denies dysuria or hematuria Musculoskeletal Musculoskeletal: Reports back pain; Denies arthralgias or myalgias Integumentary Denies rash Neurologic Neurologic: Denies headache(s) or weakness Psychiatric Psychiatric: Reports other Details: Alcohol dependence with abuse ; Denies anxiety Hematologic/Lymphatic Hematologic/Lymphatic: Denies easy bruising EXAM Physical Exam Const Vital Signs: 06/02/23 09:20 06/02/23 09:25 06/02/23 09:26 Temperature 97.1 F L Temperature Source Temporal Pulse Rate 152 H 134 H Respiratory Rate 26 H Respiratory Effort Normal Non-Labored Respiratory Depth Respiratory Pattern Blood Pressure 144/92 H Blood Pressure Mean 109 Blood Pressure Source Blood Pressure Position Blood Pressure Location Pulse Ox 98 98 Oxygen Delivery Method Room Air Room Air 06/02/23 09:54 06/02/23 09:57 06/02/23 09:59 Temperature Temperature Source Pulse Rate 137 H 138 H 121 H Respiratory Rate 22 H 21 H Respiratory Effort Respiratory Depth Respiratory Pattern Blood Pressure 162/104 H 175/155 H Blood Pressure Mean 123 161 Blood Pressure Source Blood Pressure Position Blood Pressure Location Pulse Ox 99 99 Oxygen Delivery Method Room Air Room Air 06/02/23 10:06 06/02/23 10:15 06/02/23 10:18 Temperature Temperature Source Pulse Rate 116 H 106 H 116 H Respiratory Rate 26 H 23 H Respiratory Effort Respiratory Depth Respiratory Pattern Blood Pressure 194/164 H 126/100 H Blood Pressure Mean 174 108 Blood Pressure Source Blood Pressure Position Blood Pressure Location Pulse Ox 99 91 Oxygen Delivery Method Room Air Room Air 06/02/23 10:21 06/02/23 10:41 06/02/23 11:16 Temperature Temperature Source Pulse Rate 121 H 123 H Respiratory Rate 29 H 20 H Respiratory Effort Respiratory Depth Respiratory Pattern Blood Pressure 148/92 H 148/92 H Blood Pressure Mean 110 110 Blood Pressure Source Blood Pressure Position Blood Pressure Location Pulse Ox 95 96 96 Oxygen Delivery Method Room Air Room Air Room Air 06/02/23 12:13 06/02/23 12:17 06/02/23 13:04 Temperature 97 F L 97 F L 97.9 F Temperature Source Temporal Temporal Temporal Pulse Rate 124 H 129 H 103 H Respiratory Rate 22 H 21 H 18 Respiratory Effort Respiratory Depth Respiratory Pattern Blood Pressure 157/100 H 157/100 H 144/97 H Blood Pressure Mean 119 119 112 Blood Pressure Source Monitor Monitor Blood Pressure Position Semi-Fowlers Blood Pressure Location Left Arm Pulse Ox 94 92 97 Oxygen Delivery Method Room Air Room Air Room Air 06/02/23 13:15 Temperature Temperature Source Pulse Rate Respiratory Rate Respiratory Effort Normal Non-Labored Respiratory Depth Normal Respiratory Pattern Normal Blood Pressure Blood Pressure Mean Blood Pressure Source Blood Pressure Position Blood Pressure Location Pulse Ox Oxygen Delivery Method Room Air Positive well nourished and well developed General Appearance ED: well developed and NAD HEENT Reports moist mucous membranes Eyes PERRL and EOMs intact bilaterally General Eye ED: Negative for scleral icterus Neck supple and no JVD Chest Wall inspection of chest normal Chest Narrative: No chest wall ecchymosis or crepitus. No flail chest. Patient is have tenderness palpation of the right anterior/lateral chest wall with reproduction of the pain most pronounced on the costal margin Resp normal respiratory effort and clear to auscultation bilaterally Cardio no murmurs Rate: tachycardic Rhythm: abnormal rhythm irregularly irregular GI non-distended GI Narrative: healing linear ecchymosis in the right upper quadrant, tenderness palpation of the right upper quadrant. No rebound tenderness. Active bowel sounds. Palpation: Negative for guarding Extremity normal to inspection General Extremety ED: Negative for edema or tenderness General Extremity: Negative for edema Neuro oriented x3 Sensorium / Orientation: alert Motor Exam: Negative for general weakness Psych mental status grossly normal Mood & Affect: anxious Skin no rashes or lesions noted and no wounds MDM MDM MDM Narrative Medical decision making narrative: Patient is evaluated for right-sided chest and upper abdominal pain as well as weakness and tremor. Patient is quite tremulous on exam. He on arrival he is hypertensive and in atrial fibrillation with RVR. He does not think he took his metoprolol this morning. He does have a known history of atrial fibrillation. Patient states he is drinking this morning however DTs/alcohol withdrawal are also in the differential for his presentation. Cardiac work-up to rule out ACS is ordered. Patient did strike his ribs and abdomen a couple days ago and is tender so trauma could be the cause of his pain. Will check CBC to rule out significant leukocytosis or symptomatic anemia. Patient CBC is normal. He has normal coags. His CMP is largely normal but shows mildly elevated AST and total bilirubin of 1.10. I suspect this is more from his alcohol abuse. He is status post cholecystectomy and have a low suspicion for choledocholithiasis or an acute biliary process. Lipase is normal and not consistent with pancreatitis. Urinalysis is normal. CT of the abdomen and pelvis shows compression fractures at T12 and L1 however on exam patient does not have any pinpoint tenderness to this area and does not complain of any back pain. Patient is given multiple aliquots of IV metoprolol for rate control. He is also given a 2 dose of IV Ativan with better improvement of his tachycardia and hypertension. His alcohol is normal and so I suspect this is actually is acute alcohol withdraw with underlying atrial fibrillation. Patient will be admitted for acute alcohol withdrawal because of the risk of DTs. Case is discussed the physician, Dr. Gardner. History & Record Review Additional record(s) reviewed:: Prior inpatient record (Multiple admissions for inpatient detox with continued alcohol abuse) Lab Data Attestation: I reviewed the patient's lab results. Labs: Laboratory Results - last 24 hr 06/02/23 06/02/23 06/02/23 09:13 09:40 11:18 WBC 8.1 RBC 4.29 L Hgb 15.1 Hct 43.2 MCV 100.7 H MCH 35.2 H MCHC 35.0 RDW Std Deviation 52.2 H RDW Coeff of Pati 14.0 Plt Count 255 MPV 9.5 Immature Gran % (Auto) 0.200 Neut % (Auto) 83.7 H Lymph % (Auto) 8.4 L [place] % (Auto) 6.5 Eos % (Auto) 0.7 Baso % (Auto) 0.5 Absolute Neuts (auto) 6.8 Absolute Lymphs (auto) 0.68 L Nucleated RBC % 0 PT 12.6 INR 0.9 APTT 29.9 Sodium 140 Potassium 3.9 Chloride 109 H Carbon Dioxide 21.0 Anion Gap 10 BUN 9 Creatinine 0.92 Estim Creat Clear Calc 69.18 Est GFR (MDRD) Af Amer 103 Est GFR (MDRD) Non-Af 85 BUN/Creatinine Ratio 9.7 L Glucose 91 Calcium 8.3 L Magnesium 1.9 Total Bilirubin 1.10 H AST 58 H ALT 38 Alkaline Phosphatase 145 H Troponin I High Sens 10 Total Protein 7.4 Albumin 3.2 Globulin 4.2 Albumin/Globulin Ratio 0.8 L Lipase 53 Urine Color Yellow Urine Clarity Clear Urine pH 6.0 Ur Specific [place] 1.010 Urine Protein 15 H Urine Glucose (UA) Normal Urine Ketones 15 H Urine Occult Blood 10 H Urine Nitrite Negative Urine Bilirubin Negative Urine Urobilinogen Normal Ur Leukocyte Esterase Negative Urine RBC 0 SEEN Urine WBC 0-5 SEEN Ur Squamous Epith Cells 0 SEEN Urine Bacteria 0 SEEN Urine Mucus 0 SEEN Ethyl Alcohol 11.0 06/02/23 12:10 WBC RBC Hgb Hct MCV MCH MCHC RDW Std Deviation RDW Coeff of Pati Plt Count MPV Immature Gran % (Auto) Neut % (Auto) Lymph % (Auto) [place] % (Auto) Eos % (Auto) Baso % (Auto) Absolute Neuts (auto) Absolute Lymphs (auto) Nucleated RBC % PT INR APTT Sodium Potassium Chloride Carbon Dioxide Anion Gap BUN Creatinine Estim Creat Clear Calc Est GFR (MDRD) Af Amer Est GFR (MDRD) Non-Af BUN/Creatinine Ratio Glucose Calcium Magnesium Total Bilirubin AST ALT Alkaline Phosphatase Troponin I High Sens 12 Total Protein Albumin Globulin Albumin/Globulin Ratio Lipase Urine Color Urine Clarity Urine pH Ur Specific [place] Urine Protein Urine Glucose (UA) Urine Ketones Urine Occult Blood Urine Nitrite Urine Bilirubin Urine Urobilinogen Ur Leukocyte Esterase Urine RBC Urine WBC Ur Squamous Epith Cells Urine Bacteria Urine Mucus Ethyl Alcohol Radiography Diagnostic Testing: Clinical Impression(s) from Imaging Studies Chest/Abdomen/Pelvis CT 06/02/23 09:27 IMPRESSION: Mild degree of bibasilar atelectasis. Almost complete collapse of the L1 vertebrae and partial collapse of the T12 vertebrae. Diffuse fatty infiltration of the liver. Small left renal cyst. Electronically Signed: Brian Hernandez MD at 11:06 EDT , Rhythm Strip Rhythm Strip: A-fib Rate: 144 Ectopy: None EKG Initial EKG: Attestation: I personally reviewed and interpreted this EKG as follows: Interpretation: Atrial Fibrillation Comments: Atrial fibrillation with rapid ventricular response at a rate of 138 bpm PVC present Normal axis Normal ST segments Low voltage QRS Prior EKG tracings: available for review Prior: Unchanged Differential Diagnosis Chest pain/SOB: ACS ACS: Positive for no evidence of ACS based on cardiac biomarkers and EKG without ischemia Abdominal Pain: Pancreatitis Reason(s) Pancreatitis less likely: NL lab values and Bowel obstruction Reason(s) bowel obstruction less likely: bowel sounds present on exam and no evidence of bowel obstruction on imaging studies Management Discussion w/another healthcare provider: Hospitalist Discharge Plan Dx/Rx/DC Orders Clinical Impression: DTs (delirium tremens), Atrial fibrillation with RVR Disposition Disposition: Acute Care [facility] Discharge Date/Time: 06/02/23 12:45
[2023-06-02] MEDS: Ondansetron 4 MG/2 ML Vial IV (09:48)
[2023-06-02] MEDS: Metoprolol Tartrate 5 MG/5 ML Vial IV ×3 (09:52→10:13)
[2023-06-02 09:54] LABS: Absolute Lymphocyte Count 0.68 X10^3/uL (0.83-4.51); Absolute Neutrophil Count 6.8 X10^3/uL (2.0-7.7); Basophil# 0.04 X10^3/uL; Basophil% 0.5 % (0-1); Eosinophil# 0.06 X10^3/uL; Eosinophils% 0.7 % (0-5); Hematocrit 43.2 % (40-54); Hemoglobin 15.1 g/dL (13.0-16.5); Lymphocyte # 0.68 X10^3/ul (0.83-4.51); Lymphocyte % 8.4 % (19-41); Mean Corpuscular Hgb 35.2 pg (27.0-32.0); Mean Corpuscular Volume 100.7 fL (80-94); Mean Platelet Vol. 9.5 fl (6.2-12.0); Monocyte# 0.53 X10^3/uL; Monocyte% 6.5 % (0-10); NRBC Flagged by Analyzer 0 % (0-5); Neutrophil # 6.78 X10^3/uL (2.7-7.7); Neutrophil % 83.7 % (47-70); Platelet Count 255 K/mm3 (150-450); RBC Distribution Width SD 52.2 fl (35.1-43.9); Red Blood Count 4.29 M/mm3 (4.6-6.2); White Blood Count 8.1 K/mm3 (4.4-11.0)
[2023-06-02] MEDS: LORazepam 2 MG/ML Syringe 1 MG IV ×2 (10:08→11:02)
[2023-06-02 10:10] LABS: International Normalized Ratio 0.9; Prothrombin Time (Protime)PT. 12.6 SECONDS (11.7-14.9)
[2023-06-02 10:11] LABS: Partial Thromboplast Time 29.9 Seconds (24.1-36.2)
[2023-06-02 10:14] LABS: ALB/GLOB Ratio 0.8 RATIO (0.9-2.4); AST(SGOT) 58 U/L (15-37); Alanine Aminotransfer ALT/SGPT 38 U/L (16-61); Albumin, Serum 3.2 g/dL (3.2-5.0); Alkaline Phosphatase 145 U/L (45-117); Anion Gap 10 (5-15); BUN 9 mg/dL (7-18); BUN/Creat Ratio 9.7 RATIO (10-20); Calcium,Total 8.3 mg/dL (8.5-10.1); Chloride 109 mmol/L (98-107); Creatinine, Serum 0.92 mg/dL (0.70-1.30); EST Glomerular Filtration Rate 85 mL/min (>60); Est Glom Filt Rate - Afr Amer 103 mL/min (>60); Estimated Creatinine Clearance 69.18 ml/min; Globulin 4.2 g/dL (2.2-4.2); Glucose 91 mg/dL (74-106); Lipase 53 U/L (13-75); Magnesium 1.9 mg/dL (1.6-2.6); Potassium 3.9 mmol/L (3.5-5.1); Protein, Total 7.4 g/dL (6.4-8.2); Sodium Level 140 mmol/L (136-145); Troponin-I HS (w/2H Reflex) 10 pg/mL (3.0-78.0)
[2023-06-02 11:22] LABS: Bacteria 0 SEEN /hpf (None Seen); Mucous, Urine 0 SEEN /hpf (<or=2+); Red Blood Cells-Urine 0 SEEN /hpf (0-5); Squamous Epithelial Cells - UA 0 SEEN /hpf (0-5)
[2023-06-02 11:25] LABS: Color, Urine Yellow (Yellow); Glucose, Dipstick Normal (Normal); Ketone-Dipstick 15 mg/dl (Negative); Leukocyte Esterase-Dipstick Negative /ul (Negative); Nitrite-Dipstick Negative (Negative); Occult Blood-Urine 10 /ul (Negative); Protein-Dipstick 15 mg/dl (Negative); Urine Bilirubin Dipstick Negative (Negative); Urine Clarity Clear (Clear); Urine Urobilinogen Normal (Normal)
[2023-06-02 11:41] LABS: White Blood Cells 0-5 SEEN /hpf (0-5)
[2023-06-02 11:47] LABS: Reflex Troponin-HS? (from REC) Y
--- NOTE | 2023-06-02 12:02 | NURSING ---
DR OMALLEY FOR DR EVANS
--- NOTE | 2023-06-02 12:10 | NURSING ---
PCU LYSSA ALCOHOL WITHDRAWAL
[2023-06-02] MEDS: Phenobarbital 32.4 MG Tablet 97.2 MG PO (12:19)
[2023-06-02] MEDS: Metoprolol Tartrate 25 MG Tablet 100 MG PO (12:23)
[2023-06-02 12:29] LABS: Troponin-I HS 12 pg/mL (3.0-78.0)
[2023-06-02] MEDS: Phenobarbital 32.4 MG Tablet 64.8 MG PO ×3 (15:25→22:03)
[2023-06-02] MEDS: 0.9% Saline Lock 10 ML Syringe IV (15:27)
--- NOTE | 2023-06-02 16:59 | HP.PCM.HOS_ITS ---
HPI - General General Date of Admission: 06/02/23 Date of Service: 06/02/23 Chief Complaint: Palpitations HPI Narrative LANIE DELONG, is a 72 M who presents to the emergency room at [facility] with complaints of palpitations. Patient had attempted to wean his alcohol intake down as an outpatient, he told this examiner that he usually drinks 24 cans a day and he had dropped to 12 cans a day. Examination in the emergency room revealed the patient to be in atrial fib with a ventricular response of 138 bpm, labs were obtained, patient has a normal white blood cell count at 8.1, chemistry profile was unremarkable, patient's blood alcohol level was below 11. Patient states he did have alcohol this morning. Patient was given IV metoprolol for rate control, emergency room physician was concerned that the patient was going through DTs, patient will be admitted to PCU for atrial fib with RVR and DTs, his rate limiting medications will be adjusted and he will be placed on phenobarbital. This phenobarb dose will not be tapered due to the fact the patient has chosen to continue drinking at home. [facility] Medical History Admitted to alcohol detoxification center Alcohol abuse Alcohol dependence Alcohol dependence Alcohol dependence Alcoholic cardiomyopathy Anxiety and depression Atrial fibrillation Atrial flutter, paroxysmal Former tobacco use History of acute alcoholic hepatitis History of hypertension HTN (hypertension) Left atrial enlargement Obesity PAF (paroxysmal atrial fibrillation) Panic disorder Home Medications metoprolol tartrate 100 mg tablet 100 mg PO BID bp 10/03/19 [History Last Taken 11/06/22] atorvastatin 40 mg tablet 40 tab PO DAILY cholesterol 05/08/22 [History Last Taken 11/06/22] amlodipine 5 mg tablet 5 mg PO DAILY BP 12/15/22 [History Last Taken Unknown] folic acid 1 mg tablet 1 mg PO BREAKFAST Check with primary doctor 04/05/23 [History Last Taken Unknown] thiamine HCl (vitamin B1) 100 mg tablet (Vitamin B-1) 100 mg PO DAILYCM Check with primary doctor 04/05/23 [History Last Taken Unknown] aspirin 81 mg chewable tablet 81 mg PO BREAKFAST #0 tabs 05/15/23 [Rx Last Taken Unknown] Allergy/AdvReac Type Severity Reaction Status Date / Time No Known Allergies Allergy Verified 04/11/23 23:40 Family History Mother CVA (cerebral vascular accident) Father Cancer lung cancer Surgical History Hx of cholecystectomy Social History household members: none housing: apartment Smoking Status: Former smoker alcohol intake: current alcohol intake frequency: 3 or more drinks per day details: 24 12 ounce beers daily substance use type: does not use ROS Constitutional Constitutional: Denies anorexia, change in weight, chills, fatigue, fever(s), malaise, night sweats or weakness Eyes Eyes: Denies blurry vision, change in vision, discharge from eye(s) or eye pain Cardiovascular Cardiovascular: Denies chest pain, claudication, dyspnea on exertion, edema, lightheadedness or palpitations Respiratory/Chest Respiratory/Chest: Denies cough, hemoptysis, shortness of breath at rest or shortness of breath with exertion Gastrointestinal Gastrointestinal: Denies abdominal pain, constipation, diarrhea, hematemesis, hematochezia, melena, nausea or vomiting Genitourinary Genitourinary: Denies dysuria, hematuria, urinary frequency, urinary hesitancy, urinary incontinence or urinary urgency Musculoskeletal Musculoskeletal: Denies back pain, joint pain, joint stiffness, joint swelling, myalgias or neck pain Neurologic Neurologic: Denies abnormal gait, abnormal speech, dizziness, focal weakness, headache(s), loss of vision, numbness, other visual disturbances, paresthesias, syncope or tingling Psychiatric Psychiatric: Reports anxiety and irritability; Denies cognitive impairment, depression, mood swings or suicidal ideation Endocrine Endocrinology: Denies change in body appearance, cold intolerance, excessive sweating, heat intolerance, polydipsia or polyuria Hematologic/Lymphatic Hematologic/Lymphatic: Denies none, anemia, easy bleeding, easy bruising or lymphadenopathy Allergic/Immunologic Allergic/Immunologic: Denies rhinitis, urticaria, eczemia or asthma Vital Signs Vital Signs Vital Signs: 06/02/23 09:20 06/02/23 09:25 06/02/23 09:26 Temperature 97.1 F L Temperature Source Temporal Pulse Rate 152 H 134 H Respiratory Rate 26 H Respiratory Effort Normal Non-Labored Respiratory Depth Respiratory Pattern Blood Pressure 144/92 H Blood Pressure Mean 109 Blood Pressure Source Blood Pressure Position Blood Pressure Location Pulse Ox 98 98 Oxygen Delivery Method Room Air Room Air 06/02/23 09:54 06/02/23 09:57 06/02/23 09:59 Temperature Temperature Source Pulse Rate 137 H 138 H 121 H Respiratory Rate 22 H 21 H Respiratory Effort Respiratory Depth Respiratory Pattern Blood Pressure 162/104 H 175/155 H Blood Pressure Mean 123 161 Blood Pressure Source Blood Pressure Position Blood Pressure Location Pulse Ox 99 99 Oxygen Delivery Method Room Air Room Air 06/02/23 10:06 06/02/23 10:15 06/02/23 10:18 Temperature Temperature Source Pulse Rate 116 H 106 H 116 H Respiratory Rate 26 H 23 H Respiratory Effort Respiratory Depth Respiratory Pattern Blood Pressure 194/164 H 126/100 H Blood Pressure Mean 174 108 Blood Pressure Source Blood Pressure Position Blood Pressure Location Pulse Ox 99 91 Oxygen Delivery Method Room Air Room Air 06/02/23 10:21 06/02/23 10:41 06/02/23 11:16 Temperature Temperature Source Pulse Rate 121 H 123 H Respiratory Rate 29 H 20 H Respiratory Effort Respiratory Depth Respiratory Pattern Blood Pressure 148/92 H 148/92 H Blood Pressure Mean 110 110 Blood Pressure Source Blood Pressure Position Blood Pressure Location Pulse Ox 95 96 96 Oxygen Delivery Method Room Air Room Air Room Air 06/02/23 12:13 06/02/23 12:17 06/02/23 13:04 Temperature 97 F L 97 F L 97.9 F Temperature Source Temporal Temporal Temporal Pulse Rate 124 H 129 H 103 H Respiratory Rate 22 H 21 H 18 Respiratory Effort Respiratory Depth Respiratory Pattern Blood Pressure 157/100 H 157/100 H 144/97 H Blood Pressure Mean 119 119 112 Blood Pressure Source Monitor Monitor Blood Pressure Position Semi-Fowlers Blood Pressure Location Left Arm Pulse Ox 94 92 97 Oxygen Delivery Method Room Air Room Air Room Air 06/02/23 13:15 06/02/23 15:14 Temperature 98.6 F Temperature Source Temporal Pulse Rate 119 H Respiratory Rate 18 Respiratory Effort Normal Non-Labored Respiratory Depth Normal Respiratory Pattern Normal Blood Pressure 108/67 Blood Pressure Mean 80 Blood Pressure Source Monitor Blood Pressure Position Semi-Fowlers Blood Pressure Location Right Arm Pulse Ox 99 Oxygen Delivery Method Room Air Room Air Weight Weight: 100 kg Body Mass Index (BMI) 73.7 Physical Exam Const alert, oriented x3, no apparent distress and healthy appearing General Appearance: cooperative, well kempt and well developed Orientation / Consciousness: awake, oriented to person, oriented to place and oriented to time HEENT normocephalic, head/scalp atraumatic, hearing grossly normal bilaterally and moist oral mucous membranes Eyes PERRL, EOMs intact bilaterally and conjunctivae normal Neck supple, no JVD, thyroid normal and no carotid bruits General: trachea midline Resp normal respiratory effort and clear to auscultation bilaterally Auscultation: Negative for rales, rhonchi or wheezes Cardio regular rate, regular rhythm, S1 normal heart sound, S2 normal heart sound, no murmurs, no rub and no gallops GI normal to inspection, nondistended, normoactive bowel sounds, soft to palpation, non-tender and non-distended Extremity no clubbing, cyanosis or edema Skin no rashes or lesions noted General Skin Exam: no breakdown Neuro CN's II-XII intact bilaterally, moves all extremities, no focal motor deficits and no sensory deficits noted Sensorium / Orientation: awake, alert, oriented to person and oriented to place Speech: speech normal Psych Psych Narrative: Patient appears anxious Results Lab / Micro Data 06/02/23 09:13 06/02/23 09:13 Labs: Laboratory Results - last 24 hr 06/02/23 09:13: WBC 8.1, RBC 4.29 L, Hgb 15.1, Hct 43.2, MCV 100.7 H, MCH 35.2 H , MCHC 35.0, RDW Std Deviation 52.2 H, RDW Coeff of Pati 14.0, Plt Count 255, MPV 9.5, Immature Gran % (Auto) 0.200, Neut % (Auto) 83.7 H, Lymph % (Auto) 8.4 L, Martin % (Auto) 6.5, Eos % (Auto) 0.7, Baso % (Auto) 0.5, Absolute Neuts (auto) 6.8, Absolute Lymphs (auto) 0.68 L, Nucleated RBC % 0, PT 12.6, INR 0.9, APTT 29.9, Sodium 140, Potassium 3.9, Chloride 109 H, Carbon Dioxide 21.0, Anion Gap 10, BUN 9, Creatinine 0.92, Estim Creat Clear Calc 69.18, Est GFR (MDRD) Af Amer 103, Est GFR (MDRD) Non-Af 85, BUN/Creatinine Ratio 9.7 L, Glucose 91, Calcium 8.3 L, Magnesium 1.9, Total Bilirubin 1.10 H, AST 58 H, ALT 38, Alkaline Phosphatase 145 H, Troponin I High Sens 10, Total Protein 7.4, Albumin 3.2, Globulin 4.2, Albumin/Globulin Ratio 0.8 L, Lipase 53 06/02/23 09:40: Ethyl Alcohol 11.0 06/02/23 11:18: Urine Color Yellow, Urine Clarity Clear, Urine pH 6.0, Ur Specific [place] 1.010, Urine Protein 15 H, Urine Glucose (UA) Normal, Urine Ketones 15 H, Urine Occult Blood 10 H, Urine Nitrite Negative, Urine Bilirubin Negative, Urine Urobilinogen Normal, Ur Leukocyte Esterase Negative, Urine RBC 0 SEEN, Urine WBC 0-5 SEEN, Ur Squamous Epith Cells 0 SEEN, Urine Bacteria 0 SEEN, Urine Mucus 0 SEEN 06/02/23 12:10: Troponin I High Sens 12 Rhythm Strip Rhythm Strip: A-fib Rate: 144 Ectopy: None Radiology Impression Chest/Abdomen/Pelvis CT 06/02/23 09:27 IMPRESSION: Mild degree of bibasilar atelectasis. Almost complete collapse of the L1 vertebrae and partial collapse of the T12 vertebrae. Diffuse fatty infiltration of the liver. Small left renal cyst. Electronically Signed: Brian Hernandez MD at 11:06 EDT Reading Location ID and State: [facility] / [place] , Service support , Assessment & Plan Assessment/Plan (1) DTs (delirium tremens): PLAN: Plan 1. DTs-patient well be admitted to PCU, he will be placed on phenobarb at a program dosage, I will reevaluate patient tomorrow, CIWA scores will be ordered with Ativan #2 paroxysmal atrial fib with RVR-patient well most probably need adjustment of his rate control medications, I have decided to add Cardizem to his present medications, patient will be monitored on telemetry #3 essential hypertension-patient's amlodipine will be discontinued, I will place him on Cardizem for improvement of his rate control. #4 hyperlipidemia-patient is on a statin Total clinical time spent by myself addressing patient's medical issues, reviewing all of his data, and collaborating with patient's care team: 55 minutes Charges/Coding Visit Charges Inpatient E&M: 55056 Init Hosp L2
[2023-06-02] MEDS: Acetaminophen 325 MG Tablet 650 MG PO (22:03)
[2023-06-02] MEDS: Metoprolol Tartrate 100 MG Tablet PO (22:04)
[2023-06-02] MEDS: dilTIAZem 30 MG Tablet PO (22:04)
[2023-06-03] VITALS (10 sets, daily range): BP systolic 121–140; BP diastolic 70–109; PULSE 82–95; RESP 16–18; TEMP 35.9–37.2; O2SAT 94–98
[2023-06-03] MEDS: Phenobarbital 32.4 MG Tablet 64.8 MG PO ×6 (01:42→20:56)
[2023-06-03] MEDS: dilTIAZem 30 MG Tablet PO (05:33)
[2023-06-03] MEDS: 0.9% Saline Lock 10 ML Syringe IV ×2 (05:45→10:55)
[2023-06-03] MEDS: Ondansetron 4 MG/2 ML Vial IV (05:45)
[2023-06-03] MEDS: LORazepam 1 MG Tablet 2 MG PO ×3 (06:41→14:48)
[2023-06-03] MEDS: Aspirin 81 MG TAB.CHEW PO (08:38)
[2023-06-03] MEDS: Thiamine Hydrochloride 100 MG Tablet PO (08:38)
[2023-06-03] MEDS: Folic Acid 1 MG Tablet PO (08:38)
[2023-06-03] MEDS: Metoprolol Tartrate 100 MG Tablet PO ×2 (10:53→20:53)
[2023-06-03] MEDS: dilTIAZem CD 180 MG Capsule PO (10:53)
[2023-06-03] MEDS: Atorvastatin Calcium 40 MG Tablet PO (10:55)
--- NOTE | 2023-06-03 12:36 | CASEMGMT ---
WALT received a call from Brie at [facility]. She was wondering if patient could get set up with home health at discharge. Brie is not sure patient is taking his medications appropriately. WALT let Brie know WALT will pass along this message to the RN CM. WALT passed this message along to the RN CM. Lisa Abreu [employer] STACIE
[2023-06-03] MEDS: Acetaminophen 325 MG Tablet 650 MG PO (14:49)
--- NOTE | 2023-06-03 18:30 | PN.HOSP_ITS ---
Reason for Visit Reason for Visit: Diagnoses Alcohol use, unspecified with withdrawal delirium (06/02/23) Subjective Subjective Patient was seen and examined today, he is alert and feeding himself breakfast. Addiction manager social services attempted to get him placed in an inpatient detox center but his insurance would not cover this. Patient exhibits mild confusion but does not exhibit hallucinations at this time. Objective Data Objective Data Vital Signs: Vital Signs Temp Pulse Resp BP Pulse Ox O2 Del Method 97.6 F L 89 18 135/109 H 94 Room Air 06/03/23 16:20 06/03/23 16:20 06/03/23 16:20 06/03/23 16:20 06/03/23 16:20 06/03/23 17:54 Oxygen Delivery Method Room Air Weight: 100 kg Body Mass Index (BMI) 73.7 Intake & Output: Intake and Output for Last 24 Hours 06/01/23 06/02/23 06/03/23 23:59 23:59 23:59 Intake Total 1540 / 1540 1300 / 1300 Output Total 450 / 450 750 / 750 Balance 1090 / 1090 550 / 550 Lab / Micro Data 06/02/23 09:13 06/02/23 09:13 Rhythm Strip Rhythm Strip: A-fib Rate: 144 Ectopy: None Physical Exam Const alert and no apparent distress Constitutional Narrative: Patient exhibits some mild confusion General Appearance: cooperative, well kempt and well developed Orientation / Consciousness: awake, oriented to person and oriented to place HEENT normocephalic, head/scalp atraumatic and moist oral mucous membranes Eyes PERRL, EOMs intact bilaterally and conjunctivae normal Neck supple, no JVD, thyroid normal and no carotid bruits General: trachea midline Resp normal respiratory effort, no retractions, no use of accessory muscles and clear to auscultation bilaterally Auscultation: Negative for rales, rhonchi or wheezes Cardio S1 normal heart sound, S2 normal heart sound, no murmurs, no rub and no gallops Cardio Narrative: Heart rate and rhythm is irregular GI normal to inspection, nondistended, normoactive bowel sounds, soft to palpation, non-tender and non-distended Extremity no clubbing, cyanosis or edema Skin no rashes or lesions noted General Skin Exam: no breakdown Neuro CN's II-XII intact bilaterally, no focal motor deficits and no sensory deficits noted Sensorium / Orientation: awake and alert Speech: speech normal Psych Psych Narrative: Patient exhibits mild confusion Assessment & Plan Assessment/Plan (1) Atrial fibrillation with RVR: (2) DTs (delirium tremens): PLAN: Plan 1. DTs-patient sent from's are minimal at this time, he does have some mild confusion, he has no agitation, continue oral phenobarb #2 paroxysmal atrial fib with RVR-patient well most probably need adjustment of his rate control medications, I have placed him on Cardizem CD today #3 essential hypertension-patient is on Cardizem CD as well as metoprolol #4 hyperlipidemia-patient is on a statin Total clinical time spent by myself addressing patient's medical issues, reviewing all of his data, and collaborating with patient's care team: 35 minutes Charges/Coding Visit Charges Inpatient E&M: 85134 Subs Hosp L2
--- NOTE | 2023-06-03 22:13 | NURSING ---
Patient continuously removing telemetry, notified Dr. Marie about patient noncompliance, received order to discontinue telemetry.
[2023-06-03] MEDS: LORazepam 2 MG/ML Syringe IV (22:44)
[2023-06-04] VITALS (9 sets, daily range): BP systolic 126–158; BP diastolic 93–105; PULSE 87–105; RESP 18; TEMP 36–36.9; O2SAT 93–98
[2023-06-04] MEDS: Phenobarbital 32.4 MG Tablet 64.8 MG PO ×6 (01:35→22:14)
[2023-06-04] MEDS: LORazepam 2 MG/ML Syringe IV (01:36)
[2023-06-04] MEDS: Thiamine Hydrochloride 100 MG Tablet PO (08:04)
[2023-06-04] MEDS: Aspirin 81 MG TAB.CHEW PO (08:04)
[2023-06-04] MEDS: dilTIAZem CD 180 MG Capsule PO (08:04)
[2023-06-04] MEDS: Folic Acid 1 MG Tablet PO (08:04)
[2023-06-04] MEDS: Metoprolol Tartrate 100 MG Tablet PO ×2 (08:04→22:14)
[2023-06-04] MEDS: Atorvastatin Calcium 40 MG Tablet PO (08:05)
--- NOTE | 2023-06-04 12:37 | NURSING ---
Patient remains confused. Thinks cell phone is a turtle. Was worried that turtle would not have enough water. placed in container with blue cloth and patient was satisfied. Currently lying in bed with eyes closed
--- NOTE | 2023-06-04 17:47 | PCM.PN.HOSP ---
Reason for Visit Reason for Visit: Diagnoses Alcohol use, unspecified with withdrawal delirium (06/02/23) Unspecified atrial fibrillation (06/02/23) Subjective Subjective Patient was seen and examined today, he has not kept his equipment monitor phototypesetting on and so it was discontinued. Patient remains confused at times, he is directable however. Blood pressure has been mildly elevated today. Objective Data Objective Data Vital Signs: Vital Signs Temp Pulse Resp BP Pulse Ox O2 Del Method 98.2 F 103 H 18 148/100 H 93 Room Air 06/04/23 14:46 06/04/23 16:52 06/04/23 16:52 06/04/23 16:52 06/04/23 16:52 06/04/23 16:59 Oxygen Delivery Method Room Air Weight: 100 kg Body Mass Index (BMI) 73.7 Intake & Output: Intake and Output for Last 24 Hours 06/02/23 06/03/23 06/04/23 23:59 23:59 23:59 Intake Total 1540 / 1540 1300 / 1300 720 / 720 Output Total 450 / 450 750 / 750 Balance 1090 / 1090 550 / 550 720 / 720 Lab / Micro Data 06/02/23 09:13 06/02/23 09:13 Rhythm Strip Rhythm Strip: A-fib Rate: 144 Ectopy: None Physical Exam Const alert and no apparent distress Constitutional Narrative: Patient is alert but confused General Appearance: well developed Orientation / Consciousness: awake HEENT normocephalic, head/scalp atraumatic and moist oral mucous membranes Eyes PERRL, EOMs intact bilaterally and conjunctivae normal Neck supple, no JVD, thyroid normal and no carotid bruits General: trachea midline Resp normal respiratory effort, no retractions, no use of accessory muscles and clear to auscultation bilaterally Auscultation: Negative for rales, rhonchi or wheezes Cardio S1 normal heart sound, S2 normal heart sound, no murmurs, no rub and no gallops Cardio Narrative: Heart rate and rhythm is irregular GI normal to inspection, nondistended, normoactive bowel sounds, soft to palpation, non-tender and non-distended Extremity no clubbing, cyanosis or edema Skin no rashes or lesions noted General Skin Exam: no breakdown Neuro CN's II-XII intact bilaterally, moves all extremities, no focal motor deficits and no sensory deficits noted Neuro Narrative: Patient is confused, he responds to verbal stimulation, he does not follow instructions Speech: speech normal Psych Psych Narrative: Patient is confused, he does not appear agitated Assessment & Plan Assessment/Plan (1) Atrial fibrillation with RVR: (2) DTs (delirium tremens): PLAN: Plan 1. DTs-continue program phenobarbital at this time, patient is hallucinating but does not appear belligerent at this time #2 paroxysmal atrial fib with RVR-I will increase the patient's Cardizem CD tomorrow morning to 240 mg daily #3 essential hypertension-patient is on Cardizem CD as well as metoprolol #4 hyperlipidemia-patient is on a statin Total clinical time spent by myself addressing patient's medical issues, reviewing all of his data, and collaborating with patient's care team: 35 minutes Charges/Coding Visit Charges Inpatient E&M: 27243 Subs Hosp L2
[2023-06-05] VITALS (11 sets, daily range): BP systolic 113–143; BP diastolic 56–97; PULSE 71–98; RESP 16–18; TEMP 36.4–36.9; O2SAT 93–98
[2023-06-05] MEDS: Phenobarbital 32.4 MG Tablet 64.8 MG PO ×4 (01:55→17:31)
[2023-06-05] MEDS: dilTIAZem CD 240 MG Capsule PO (08:35)
[2023-06-05] MEDS: Aspirin 81 MG TAB.CHEW PO (08:37)
[2023-06-05] MEDS: Folic Acid 1 MG Tablet PO (08:38)
[2023-06-05] MEDS: Metoprolol Tartrate 100 MG Tablet PO ×2 (08:38→22:10)
[2023-06-05] MEDS: Thiamine Hydrochloride 100 MG Tablet PO (08:38)
[2023-06-05] MEDS: Atorvastatin Calcium 40 MG Tablet PO (08:38)
--- NOTE | 2023-06-05 12:57 | NURSING ---
Phenobarbital given late due to delivery issue. updated and told to hold 1345 dose
--- NOTE | 2023-06-05 16:21 | PCM.PN.HOSP ---
Reason for Visit Reason for Visit: Diagnoses Alcohol use, unspecified with withdrawal delirium (06/02/23) Unspecified atrial fibrillation (06/02/23) Subjective Subjective Patient was seen and examined today, he is able to tell me the month, he got the year wrong, he told me it was the first week in June. Patient is however still confused and does not recognize individuals that he knows. Objective Data Objective Data Vital Signs: Vital Signs Temp Pulse Resp BP Pulse Ox O2 Del Method 97.8 F 90 18 113/81 H 97 Room Air 06/05/23 15:58 06/05/23 15:58 06/05/23 15:58 06/05/23 15:58 06/05/23 15:58 06/05/23 15:58 Oxygen Delivery Method Room Air Weight: 100 kg Body Mass Index (BMI) 73.7 Intake & Output: Intake and Output for Last 24 Hours 06/03/23 06/04/23 06/05/23 23:59 23:59 23:59 Intake Total 1300 / 1300 720 / 720 840 / 840 Output Total 750 / 750 Balance 550 / 550 720 / 720 840 / 840 Lab / Micro Data 06/02/23 09:13 06/02/23 09:13 Rhythm Strip Rhythm Strip: A-fib Rate: 144 Ectopy: None Physical Exam Narrative alert and no apparent distress Constitutional Narrative: Patient is alert but confused General Appearance: well developed Orientation / Consciousness: awake HEENT normocephalic, head/scalp atraumatic and moist oral mucous membranes Eyes PERRL, EOMs intact bilaterally and conjunctivae normal Neck supple, no JVD, thyroid normal and no carotid bruits General: trachea midline Resp normal respiratory effort, no retractions, no use of accessory muscles and clear to auscultation bilaterally Auscultation: Negative for rales, rhonchi or wheezes Cardio S1 normal heart sound, S2 normal heart sound, no murmurs, no rub and no gallops Cardio Narrative: Heart rate and rhythm is irregular GI normal to inspection, nondistended, normoactive bowel sounds, soft to palpation, non-tender and non-distended Extremity no clubbing, cyanosis or edema Skin no rashes or lesions noted General Skin Exam: no breakdown Neuro CN's II-XII intact bilaterally, moves all extremities, no focal motor deficits and no sensory deficits noted Neuro Narrative: Patient is confused, he responds to verbal stimulation, he does not follow instructions Speech: speech normal Psych Psych Narrative: Patient is confused, he does not appear agitated Assessment & Plan Assessment/Plan (1) DTs (delirium tremens): (2) Atrial fibrillation with RVR: PLAN: Plan 1. DTs-continue programmed phenobarbital at this time, patient is hallucinating but does not appear belligerent at this time, I have elected to space out the interval for his phenobarb. #2 paroxysmal atrial fib with RVR-patient remains on rate control medications #3 essential hypertension-patient is on Cardizem CD as well as metoprolol #4 hyperlipidemia-patient is on a statin Total clinical time spent by myself addressing patient's medical issues, reviewing all of his data, and collaborating with patient's care team: 35 minutes Charges/Coding Visit Charges Inpatient E&M: 38622 Subs Hosp L2
[2023-06-05] MEDS: Acetaminophen 325 MG Tablet 650 MG PO (20:35)
[2023-06-06 00:15] VITALS: BP 129/83; PULSE 82; RESP 18; TEMP 36.2; O2SAT 94
[2023-06-06] MEDS: Phenobarbital 32.4 MG Tablet 64.8 MG PO ×2 (00:16→06:45)
[2023-06-06 02:00] VITALS: BP 130/88; PULSE 86; RESP 18; TEMP 36.5; O2SAT 97
[2023-06-06 06:00] VITALS: BP 135/85; PULSE 81; RESP 18; TEMP 35.9; O2SAT 97
[2023-06-06 08:46] VITALS: BP 131/90; PULSE 85; RESP 18; TEMP 36.5; O2SAT 98
[2023-06-06] MEDS: dilTIAZem CD 240 MG Capsule PO (09:29)
[2023-06-06] MEDS: Folic Acid 1 MG Tablet PO (09:29)
[2023-06-06] MEDS: Thiamine Hydrochloride 100 MG Tablet PO (09:29)
[2023-06-06 09:30] VITALS: PULSE 85
[2023-06-06] MEDS: Atorvastatin Calcium 40 MG Tablet PO (09:30)
[2023-06-06] MEDS: Aspirin 81 MG TAB.CHEW PO (09:30)
[2023-06-06] MEDS: Metoprolol Tartrate 100 MG Tablet PO (09:30)
[2023-06-06] MEDS: Acetaminophen 325 MG Tablet 650 MG PO (09:35)
--- NOTE | 2023-06-06 11:24 | PCM.DC ---
Discharge Instructions Diet Discharge Diet: No restrictions Activity Discharge Activity: Return to Normal Activity Weight Bearing Status: Full weight bearing Follow Up Care Test Results: Test results from this visit will be discussed in further detail at your follow-up appointment, if applicable. Discharge Plan Admission Admit Date/Time: 06/02/23 13:35 Primary Reason for Your Visit: DT'sofia, A-fib Attending Provider: Jorge Gardner Primary Care Provider: Faheem Montalvo Instructions Additional Instructions / Restrictions: Limit beer intake to 6-12 beers per day if you choose to drink Discharge Orders/Prescriptions Prescriptions: New metoprolol tartrate 100 mg Tablet 100 mg PO BID Qty: 60 0RF diltiazem HCl 240 mg Capsule,Extended Release 24hr 240 mg PO DAILY Qty: 30 0RF Continued atorvastatin 40 mg tablet 40 tab PO DAILY Patient Comments: 1 tablet by mouth as directed thiamine HCl (vitamin B1) [Vitamin B-1] 100 mg tablet 100 mg PO DAILYCM folic acid 1 mg tablet 1 mg PO BREAKFAST aspirin 81 mg Tablet,Chewable 81 mg PO BREAKFAST Qty: 0 0RF Discontinued metoprolol tartrate 100 mg tablet 100 mg PO BID amlodipine 5 mg tablet 5 mg PO DAILY Referrals / Follow Up: Faheem Montalvo MD [Primary Care Provider] - Disposition Disposition (needs filled in before D/C Order can be placed): Home, Self Care
--- NOTE | 2023-06-06 12:18 | PCM.DC.SUM ---
Providers Date of Admission: 06/02/23 Date of Discharge: 06/06/23 Primary Care Physician: Faheem Montalvo MD Reason For Visit: alcohol withdrawal Diagnosis Discharge Diagnosis (1) DTs (delirium tremens): Status: Acute Code(s): F10.931 - Alcohol use, unspecified with withdrawal delirium (2) Atrial fibrillation with RVR: Status: Acute Code(s): I48.91 - Unspecified atrial fibrillation Plan 1. DTs-continue programmed phenobarbital at this time, patient is hallucinating but does not appear belligerent at this time, I have elected to space out the interval for his phenobarb. #2 paroxysmal atrial fib with RVR-patient remains on rate control medications #3 essential hypertension-patient is on Cardizem CD as well as metoprolol #4 hyperlipidemia-patient is on a statin Total clinical time spent by myself addressing patient's medical issues, reviewing all of his data, and collaborating with patient's care team: 35 minutes Medications at Discharge Home Medications atorvastatin 40 mg tablet 40 tab PO DAILY cholesterol 05/08/22 folic acid 1 mg tablet 1 mg PO BREAKFAST Check with primary doctor 04/05/23 thiamine HCl (vitamin B1) 100 mg tablet (Vitamin B-1) 100 mg PO DAILYCM Check with primary doctor 04/05/23 aspirin 81 mg chewable tablet 81 mg PO BREAKFAST #0 tabs 05/15/23 diltiazem HCl 240 mg capsule,extended release 24 hr 240 mg PO DAILY #30 caps 06/06/23 metoprolol tartrate 100 mg tablet 100 mg PO BID #60 tabs 06/06/23 Hospital Course Operations None Procedures None Summary of Care Provided Minutes Spent on Discharge: 31 Hospital Course: 4-year-old white male was seen in the emergency room at [facility] with complaint of palpitations and nervousness after cutting down on his drinking at home. Patient has been in the hospital multiple times for alcohol detox, he does not really want to stop drinking he has been attempting to cut down the amount that he drinks however. Evaluation in the emergency room revealed the patient to be in atrial fib with RVR, he had a history of atrial for before and is on rate limiting medications at home. Patient appeared anxious and restless in the emergency room and was felt to be going into DTs, he was admitted to PCU, placed on a monitor, and placed on programmed phenobarbital. He has rate limiting medications were adjusted, he would not wear his telemetry but his vital signs stabilized with a well-controlled heart rate. Over the next several days, patient became more lucid, on 06/06/2023, requested discharge to home and I felt he was stable to be discharged. On 06/06/2023, patient was seen and examined: On examination he appeared in good health and spirits. Vital signs as documented. Skin warm and dry and without overt rashes. Neck without JVD, neck was supple, trachea midline, thyroid was normal. Lungs clear bilaterally, normal air movement was noted. Heart exam notable for regular rhythm, normal sounds and absence of murmurs, rubs or gallops. Abdomen unremarkable and without evidence of organomegaly, masses, or abdominal aortic enlargement. Bowel sounds are present, abdomen is not distended. Extremities nonedematous, no cyanosis was noted, no clubbing was noted. Neuro: Cranial nerves II through XII are grossly intact, no focal motor deficits were noted, sensation to light touch and pinprick intact, motor exam 5/5 throughout. Psych: Patient is alert and oriented x3, he does not appear anxious or depressed, he does not appear agitated. Patient was felt to be stable for discharge home on 06/06/2023. Weight / BMI Weight Weight: 100 kg Body Mass Index (BMI) 73.7 ABG / Lab / Microbiology Data 06/02/23 09:13 06/02/23 09:13 D/C Instructions Discharge Diet: No restrictions Weight Bearing Status: Full weight bearing Meaningful Use Info Meaningful Use Diagnoses (Choose all that apply): None applicable Discharge Plan Admission Admit Date/Time: 06/02/23 13:35 Primary Reason for Your Visit: Tamiko, Frankie-fib Attending Provider: Jorge Gardner Primary Care Provider: Faheem Montalvo Instructions Additional Instructions / Restrictions: Limit beer intake to 6-12 beers per day if you choose to drink Discharge Orders/Prescriptions Prescriptions: New metoprolol tartrate 100 mg Tablet 100 mg PO BID Qty: 60 0RF diltiazem HCl 240 mg Capsule,Extended Release 24hr 240 mg PO DAILY Qty: 30 0RF Continued atorvastatin 40 mg tablet 40 tab PO DAILY Patient Comments: 1 tablet by mouth as directed thiamine HCl (vitamin B1) [Vitamin B-1] 100 mg tablet 100 mg PO DAILYCM folic acid 1 mg tablet 1 mg PO BREAKFAST aspirin 81 mg Tablet,Chewable 81 mg PO BREAKFAST Qty: 0 0RF Discontinued metoprolol tartrate 100 mg tablet 100 mg PO BID amlodipine 5 mg tablet 5 mg PO DAILY Referrals / Follow Up: Faheem Montalvo MD [Primary Care Provider] - Disposition Disposition (needs filled in before D/C Order can be placed): Home, Self Care Charges/Coding Visit Charges Inpatient E&M: 54321 Disch Hosp >30min
[2023-06-06 14:00] VITALS: BP 102/74; PULSE 81; RESP 16; TEMP 36.4; O2SAT 97
== END 2023-06-06 15:25 | disposition home or self-care (01) | DRG 897 ==
LOC: ED 10:03 → PCU 12:30
PROVIDERS: Admitting Provider Internal Medicine; Emergency Provider Emergency Medicine; PCP Family Medicine; Visit Provider Internal Medicine
DX: F10.231 Alcohol dependence with withdrawal delirium (principal); E78.5 Hyperlipidemia, unspecified; I48.0 Paroxysmal atrial fibrillation; I10 Essential (primary) hypertension; Z79.82 Long term (current) use of aspirin; Z87.891 Personal history of nicotine dependence; Y90.0 Blood alcohol level of less than 20 mg/100 ml
CPT/HCPCS: 71260; 74177; 80053; 81001; 82077; 83690; 83735; 84484; 85025; 85610; 85730; 93005; 97802; 99285; J7040; Q9967; A4216; J2405

== ENCOUNTER 2023-07-09 16:06 | Inpatient (IN) | payer MEDICARE, MEDICAID, SELFPAY ==
[2023-07-09] VITALS (7 sets, daily range): BP systolic 118–184; BP diastolic 74–104; PULSE 91–132; RESP 13–30; TEMP 36–37; O2SAT 92–98; BMI 33.0; BMI 30.3
--- NOTE | 2023-07-09 17:58 | CM.ED ---
Social Work SW returned call to patient's brother Roby Mccabe. Brother was asking whether patient was in ED and if the plan is to admit the patient. SW informed brother pt is in the ED but still waiting to be seen. Pt's brother understood and will check with the unit tomorrow to inquire about admittance. Twaanna Jett DIGITAL PRODUCTION MANAGER, INCENDIARIES SUPERVISOR
[2023-07-09 18:53] LABS: Prothrombin Time (Protime)PT. 12.9 SECONDS (11.7-14.9)
[2023-07-09 19:00] LABS: ALB/GLOB Ratio 0.8 RATIO (0.9-2.4); AST(SGOT) 315 U/L (15-37); Alanine Aminotransfer ALT/SGPT 256 U/L (16-61); Albumin, Serum 3.1 g/dL (3.2-5.0); Alkaline Phosphatase 157 U/L (45-117); Anion Gap 14 (5-15); BUN 7 mg/dL (7-18); BUN/Creat Ratio 8.8 RATIO (10-20); Calcium,Total 8.5 mg/dL (8.5-10.1); Chloride 99 mmol/L (98-107); EST Glomerular Filtration Rate 101 mL/min (>60); Est Glom Filt Rate - Afr Amer 122 mL/min (>60); Estimated Creatinine Clearance 79.56 ml/min; Globulin 3.9 g/dL (2.2-4.2); Glucose 90 mg/dL (74-106); Potassium 3.6 mmol/L (3.5-5.1); Sodium Level 133 mmol/L (136-145)
--- NOTE | 2023-07-09 19:06 | EX.ED.DYSGE1 ---
HPI History of Present Illness Chief Complaint: Substance Abuse Detail of Chief Complaint: Patient presents for alcohol detox Informant: patient Onset/Context/Timing Onset: - (Patient has been drinking for approximately 50 years) Context: Gradual Onset Timing: Continuous Quality: Patient states he drinks 12-24 malt liquors a day Location: Not applicable Current Severity: Severe Maximum Severity: Severe Worsened by: Patient has tremors and palpitations in the morning Relieved by: Alcohol Associated Symptoms Associated Symptoms: General sense of unwellness Narrative Narrative: Patient is a 72-year-old male who is noncompliant with his meds. He states he does not eat much. He states his caloric intake is essentially malt liquors. He denies black or maroon stool. Denies bright red blood per rectum. He denies vomiting. He denies cardiac or respiratory symptoms. He denies headache. He denies visual, ocular auditory symptoms. He does have history of hypercholesterolemia and hypertension. Prior similar symptoms: Yes Recent Illness/Hospitalization: No PFSH PFS Medical History Admitted to alcohol detoxification center Alcohol abuse Alcohol dependence Alcohol dependence Alcohol dependence Alcoholic cardiomyopathy Anxiety and depression Atrial fibrillation Atrial flutter, paroxysmal Former tobacco use History of acute alcoholic hepatitis History of hypertension HTN (hypertension) Left atrial enlargement Obesity PAF (paroxysmal atrial fibrillation) Panic disorder Home Medications atorvastatin 40 mg tablet 40 tab PO DAILY cholesterol 05/08/22 [History Last Taken 11/06/22] folic acid 1 mg tablet 1 mg PO BREAKFAST Check with primary doctor 04/05/23 [History Last Taken Unknown] thiamine HCl (vitamin B1) 100 mg tablet (Vitamin B-1) 100 mg PO DAILYCM Check with primary doctor 04/05/23 [History Last Taken Unknown] aspirin 81 mg chewable tablet 81 mg PO BREAKFAST #0 tabs 05/15/23 [Rx Last Taken Unknown] diltiazem HCl 240 mg capsule,extended release 24 hr 240 mg PO DAILY #30 caps 06/06/23 [Rx Last Taken Unknown] metoprolol tartrate 100 mg tablet 100 mg PO BID #60 tabs 06/06/23 [Rx Last Taken Unknown] Allergy/AdvReac Type Severity Reaction Status Date / Time No Known Allergies Allergy Verified 07/09/23 17:45 Family History Mother CVA (cerebral vascular accident) Father Cancer lung cancer Surgical History Hx of cholecystectomy Social History household members: none housing: apartment Smoking Status: Former smoker alcohol intake: current alcohol intake frequency: 3 or more drinks per day details: 24 12 ounce beers daily substance use type: does not use ROS ROS ED Constitutional Constitutional ED: Denies chills, fever(s), subjective, sweats or weight loss Eyes Eyes: Denies blurry vision, change in vision or diplopia ENT ENT ED: Denies ear pain, rhinorrhea or sore throat Cardiovascular Cardiovascular: Denies chest pain, orthopnea, palpitations or paroxysmal nocturnal dyspnea Respiratory/Chest Respiratory/Chest: Denies cough, dyspnea, dyspnea on exertion, orthopnea or paroxysmal nocturnal dyspnea Gastrointestinal Gastrointestinal: Reports nausea; Denies abdominal pain, diarrhea, melena or vomiting Genitourinary Genitourinary ED: Denies dysuria, hematuria or urinary frequency Musculoskeletal Musculoskeletal: Denies arthralgias, back pain, myalgias or neck pain Integumentary Denies rash Neurologic Neurologic: Reports weakness; Denies headache(s) or paresthesias Psychiatric Psychiatric: Reports depression; Denies anxiety or suicidal ideation Hematologic/Lymphatic Hematologic/Lymphatic: Reports systems reviewed and no addt'l complaints, except as documented EXAM Physical Exam Const Vital Signs: 07/09/23 16:11 07/09/23 19:08 Temperature 97.2 F L Temperature Source Temporal Pulse Rate 91 105 H Respiratory Rate 16 13 Blood Pressure 184/76 H 140/87 H Blood Pressure Mean 112 104 Pulse Ox 95 98 Oxygen Delivery Method Room Air Room Air Positive well nourished, well developed, obese and unkempt Constitutional Narrative: Patient does not appear well. Question if patient has jaundice General Appearance ED: unkempt and well developed; Negative for cyanotic, diaphoretic or pallor Nutritional Appearance: obese HEENT Reports dry mucous membranes HEENT Narrative: Head is normal Alick atraumatic. Ears normal. TMs normal. Nares patent. Posterior pharynx without erythema or exudate. Uvula is midline. Mouth ED: Yes dry mucous membranes Mouth: dry mucous membranes Eyes PERRL and EOMs intact bilaterally Eyes Narrative: Patient's sclera is either muddy or icteric. General Eye ED: Negative for pale conjunctiva Neck no lymphadenopathy, supple and no JVD Chest Wall inspection of chest normal and palpation of chest normal Resp normal respiratory effort and clear to auscultation bilaterally Cardio regular rate, regular rhythm, S1 normal heart sound, S2 normal heart sound and no murmurs GI normal to inspection, nondistended, normoactive bowel sounds, non-distended and no masses; Negative for non-tender or hepatosplenomegaly Palpation: soft and tender other (Throughout); Negative for guarding, splenomegaly, mass or rebound tenderness present Back/Spine no CVA tenderness Neuro oriented x3, CN's II-XII intact bilaterally and no sensory deficits noted Sensorium / Orientation: alert Motor Exam: strength 5/5 throughout Psych Appearance: unkempt Mood & Affect: depressed Skin no rashes or lesions noted, no wounds and No skin turgor normal Skin Narrative: There is no bruising or petechiae noted. General Skin Exam: jaundice; Negative for elasticity normal or pallor MDM MDM MDM Narrative Medical decision making narrative: Patient is an alcoholic. ED addiction medicine order set was initiated. Hospitalist were not called until blood work was back because of concern for jaundice. Clinically patient does not have ascites. Lab Data Attestation: I reviewed the patient's lab results. Lab results narrative: CBC is pending. INR is normal. Electrolyte panel reveals a CO2 of 20 with a normal anion gap. Total bili is 1.3. AST and ALT are elevated at 315 and 256 respectively. Alkaline phosphatase is elevated 157. Alcohol is 156. Labs: Laboratory Results - last 24 hr 07/09/23 07/09/23 18:36 19:00 PT 12.9 INR 1.0 Sodium 133 L Potassium 3.6 Chloride 99 Carbon Dioxide 20.0 L Anion Gap 14 BUN 7 Creatinine 0.80 Estim Creat Clear Calc 79.56 Est GFR (MDRD) Af Amer 122 Est GFR (MDRD) Non-Af 101 BUN/Creatinine Ratio 8.8 L Glucose 90 Calcium 8.5 Total Bilirubin 1.30 H AST 315 H ALT 256 H Alkaline Phosphatase 157 H Total Protein 7.0 Albumin 3.1 L Globulin 3.9 Albumin/Globulin Ratio 0.8 L Ur Drug Screen Comment Ethyl Alcohol 156.0 Discharge Plan Dx/Rx/DC Orders Clinical Impression: Alcohol abuse with physiological dependence, Sinus tachycardia, Elevated liver enzymes, Blood pressure elevated without history of HTN, Acute alcoholic hepatitis Disposition Disposition: Acute Care Hospital [facility]
--- NOTE | 2023-07-09 19:19 | HP.PCM.HOS_ITS ---
HPI - General General Date of Admission: 07/09/23 Date of Service: 07/09/23 Chief Complaint: Acute EtOH Withdrawal HPI Narrative The patient is a 72 y/o M w/ PMHx: EtOH abuse, PAF, Anxiety and Depression, EtOH associated Cardiomyopathy, Obesity, HTN, Former tobacco use who presents to the [facility] ED on 07/09/23 with history of nearly 50 years of significant alcohol abuse usually drinking 12-24 malt liquors daily with presentation in the hospital secondary to alcohol withdrawal symptoms including severe tremors, palpitations with poor intake and nausea with no emesis with history of previous significant DVT prompting eventual ED evaluation. Patient in the ED notes feeling extremely terrible with ongoing nausea, mild abdominal discomfort with palpation primarily in the right upper quadrant visibly tremulous and ill-appearing. He denies taking any of his medications on day of presentation. Work-up in the ED included T97.2, heart rate 105, BP initially 182/76 with most recent repeat 140/87, respiratory rate 13, 98% on room air, unremarkable coags, CMP with sodium 133,, oxide 20, T. bili 1.30, AST/ALT 315/256, alk phos 157, ethyl a lcohol level 156, urine drug screen pending upon requested evaluation of patient. CBC also added. [facility] Medical History (Updated 07/09/23 @ 19:[address] Aurea Carlton MD) Alcohol abuse Alcoholic cardiomyopathy Anxiety and depression Atrial fibrillation Atrial flutter, paroxysmal Former tobacco use History of acute alcoholic hepatitis HTN (hypertension) Hyperlipidemia Left atrial enlargement Obesity PAF (paroxysmal atrial fibrillation) Panic disorder Home Medications atorvastatin 40 mg tablet 40 tab PO DAILY cholesterol 05/08/22 [History Last Taken 11/06/22] folic acid 1 mg tablet 1 mg PO BREAKFAST Check with primary doctor 04/05/23 [History Last Taken Unknown] thiamine HCl (vitamin B1) 100 mg tablet (Vitamin B-1) 100 mg PO DAILYCM Check with primary doctor 04/05/23 [History Last Taken Unknown] aspirin 81 mg chewable tablet 81 mg PO BREAKFAST #0 tabs 05/15/23 [Rx Last Taken Unknown] diltiazem HCl 240 mg capsule,extended release 24 hr 240 mg PO DAILY #30 caps 06/06/23 [Rx Last Taken Unknown] metoprolol tartrate 100 mg tablet 100 mg PO BID #60 tabs 06/06/23 [Rx Last Taken Unknown] Allergy/AdvReac Type Severity Reaction Status Date / Time No Known Allergies Allergy Verified 07/09/23 17:45 Family History Mother CVA (cerebral vascular accident) Father Cancer lung cancer Surgical History Hx of cholecystectomy Social History (Updated 07/09/23 @ 19:[address] Aurea Carlton MD) household members: none housing: apartment Smoking Status: Former smoker alcohol intake: current alcohol intake frequency: 3 or more drinks per day details: 24-12 ounce beers daily substance use type: does not use ROS ROS Narrative Admission Review of Systems: CONSTITUTIONAL: No weight loss, fever, chills, + weakness or fatigue. HEENT: Eyes: No visual loss, blurred vision, double vision or yellow sclerae. Ears, Nose, Throat: No hearing loss, sneezing, congestion, runny nose or sore throat. SKIN: No rash or itching, lesions, wounds. CARDIOVASCULAR: No chest pain, chest pressure or chest discomfort, palpitations, edema, orthopnea, syncopal events. RESPIRATORY: No shortness of breath, cough or sputum, wheezing, hemoptysis. GASTROINTESTINAL: + anorexia, nausea without emesis, abdominal discomfort primarily right upper quadrant palpation. No diarrhea, melena, BRBPR. GENITOURINARY: No dysuria, frequency, urgency or retention. NEUROLOGICAL: No headache, dizziness, syncope, paralysis, ataxia, numbness or tingling in the extremities, focal weakness, change in bowel or bladder control, seizure. MUSCULOSKELETAL: + muscle, back pain, joint pain or stiffness. HEMATOLOGIC: + anemia, history easy bleeding or bruising. LYMPHATICS: No enlarged nodes. No history of splenectomy. PSYCHIATRIC: + history of depression or anxiety/panic disorder. ENDOCRINOLOGIC: No reports of sweating, cold or heat intolerance. No polyuria or polydipsia. ALLERGIES: No history of asthma, hives, eczema or rhinitis. Vital Signs Vital Signs Vital Signs: 07/09/23 16:11 07/09/23 19:08 Temperature 97.2 F L Temperature Source Temporal Pulse Rate 91 105 H Respiratory Rate 16 13 Blood Pressure 184/76 H 140/87 H Blood Pressure Mean 112 104 Pulse Ox 95 98 Oxygen Delivery Method Room Air Room Air Weight Weight: 216 lb 14.958 oz Body Mass Index (BMI) 33.0 Physical Exam Narrative Physical Examination: General: Awake, alert, oriented x 3 and cooperative, laying on his side in the ED bed, visibly ill-appearing and tremulous. Skin: Flushed color, decreased turgor, no icterus, no cyanosis. HEENT: AT/NC, EOMI, PERRLA, dry MM, no carotid bruits or JVD noted. Lungs: CTA bilaterally, moderate effort, mild decrease BL bases, no rales, ronchi or wheezing. Heart: Tachycardic with regular rhythm; no gallop, rub audible. Abdomen: Soft, obese, mild discomfort to palpation of primarily the right upper quadrant but no rebound or guarding, no marked distention but difficult given obese habitus, hyperactive BS, appreciated HM. Extremities: No cyanosis, clubbing, or edema. Neurological: Patient awake, alert, oriented as noted, cognitive function intact; pupils equally reactive to light and accommodation, cranial nerves II- XII grossly normal, moving all 4 extremities, no focal deficits, strength s everely global decrease secondary to acute presentation, patient very tremulous, restless, anxious, reports ongoing significant nausea at this time. Psychiatric: Affect appears uncomfortable and ill-appearing, no acute evidence of depressive or anxiety feelings but does have underlying significant history in addition to panic disorder. Results Lab / Micro Data 07/09/23 18:36 07/09/23 18:36 Labs: Laboratory Results - last 24 hr 07/09/23 18:36: PT 12.9, INR 1.0, Sodium 133 L, Potassium 3.6, Chloride 99, Carbon Dioxide 20.0 L, Anion Gap 14, BUN 7, Creatinine 0.80, Estim Creat Clear Calc 79.56, Est GFR (MDRD) Af Amer 122, Est GFR (MDRD) Non-Af 101, BUN/Creatinine Ratio 8.8 L, Glucose 90, Calcium 8.5, Total Bilirubin 1.30 H, AST 315 H, ALT 256 H, Alkaline Phosphatase 157 H, Total Protein 7.0, Albumin 3.1 L, Globulin 3.9, Albumin/Globulin Ratio 0.8 L, Ethyl Alcohol 156.0 07/09/23 19:00: Ur Drug Screen Comment Assessment & Plan Assessment/Plan (1) Alcohol withdrawal: PLAN: Plan The patient is a 72 y/o M w/ PMHx: EtOH abuse, PAF, Anxiety and Depression, EtOH associated Cardiomyopathy, Obesity, HTN, Former tobacco use who presents to the [facility] ED on 07/09/23 with history of nearly 50 years of significant alcohol abuse usually drinking 12-24 malt liquors daily with presentation in the hospital secondary to alcohol withdrawal symptoms including severe tremors, palpitations with poor intake and nausea with no emesis with history of previous significant DVT prompting eventual ED evaluation. #1. Acute EtOH Withdrawal with Acute alcoholic hepatitis and prior history DVT: Will admit to medical surgical floor but will continue to closely monitor as patient does have DT history and is in significant withdrawal at this time but will immediately start administering phenobarbital as noted and if necessary may transition to IV phenobarbital if nausea is to significant, routine labs obtained in the ED upon presentation with unremarkable coags, CMP with sodium 133, CO2 20, T. bili 1.30, AST/ALT 315/256, alk phos 157 which is notably elevated consistent with acute alcoholic hepatitis. Urine drug screen pending upon request evaluation of patient. Given interest in sobriety, will initiate and continue on protocol with taper course of Phenobarbital, as needed gabapentin, Catapres, Bentyl, Vistaril, IV fluids, IV antiemetics, Tylenol as needed for pain. Will consult Case management for assistance for transition to next level of rehabilitation care. Mag, phos pending. Maintain on CIWA protocol concurrently. Will repeat CMP in AM. #2. Alcoholic associated cardiomyopathy: 05/14/2023 echocardiogram with EF 55%, moderately enlarged LA and RA, mild MVI, mild to moderate TVI, RVSP 32 mmHg with no change since prior study 03/2022. Strongly encourage sobriety. Maintained on aspirin, statin, metoprolol. #3. PAF: Patient with admission 06/02/2023-06/06/2023 secondary to atrial fibrillation with RVR with DTs during that presentation, not chronically anticoagulated secondary to significant fall risk, maintain on aspirin, continue metoprolol and diltiazem home regimen with doses now as he is missed his medications. #4. Hypertension: Continue home regimen including diltiazem, metoprolol with doses now as he is missed his medications, PRN hydralazine. #5. Hyperlipidemia: We will temporarily hold patient on statin given acute alcoholic hepatitis with rise of LFTs, resume once appropriate. #6. Obesity: Weight loss and lifestyle changes encouraged. #7. Former tobacco use: Encourage continued tobacco cessation. #8. Anxiety and depression: Likely contributing to his chronic alcohol abuse, not on any chronic regimen, encourage continued outpatient follow-up and counseling as well as medications if appropriate. #9. DVT prophylaxis: Low risk for current presentation admission, encourage ambulation. Charges/Coding Visit Charges Inpatient E&M: 49747 Init Hosp L3
[2023-07-09 19:33] LABS: Amphetamine Urine VISTA NEGATIVE (<1000 ng/mL); Barbiturate Urine VISTA POSITIVE (< 200 ng/mL); Benzodiazepine Urine VISTA NEGATIVE (< 200 ng/mL); Cocaine Urine VISTA NEGATIVE (< 300 ng/mL); Ecstacy Urine VISTA NEGATIVE (< 500 ng/mL); Methadone Urine VISTA NEGATIVE (< 300 ng/mL); PCP Urine VISTA NEGATIVE (< 25 ng/mL); THC Urine VISTA NEGATIVE (< 50 ng/mL); Vista UDS pH Range 5
[2023-07-09 19:36] LABS: Absolute Lymphocyte Count 0.87 X10^3/uL (0.83-4.51); Absolute Neutrophil Count 3.5 X10^3/uL (2.0-7.7); Basophil# 0.04 X10^3/uL; Basophil% 0.7 % (0-1); Eosinophil# 0.04 X10^3/uL; Eosinophils% 0.7 % (0-5); Hematocrit 39.2 % (40-54); Hemoglobin 13.4 g/dL (13.0-16.5); Lymphocyte # 0.87 X10^3/ul (0.83-4.51); Lymphocyte % 16.1 % (19-41); Mean Corp Hgb Conc 34.2 g/dL (32-36); Mean Corpuscular Hgb 35.4 pg (27.0-32.0); Mean Corpuscular Volume 103.4 fL (80-94); Monocyte# 0.88 X10^3/uL; Monocyte% 16.3 % (0-10); NRBC Flagged by Analyzer 0 % (0-5); Neutrophil # 3.52 X10^3/uL (2.7-7.7); Neutrophil % 65.3 % (47-70); Platelet Count 133 K/mm3 (150-450); RBC Distribution Width CV 14.2 % (11.6-14.6); RBC Distribution Width SD 53.6 fl (35.1-43.9); Red Blood Count 3.79 M/mm3 (4.6-6.2); White Blood Count 5.4 K/mm3 (4.4-11.0)
[2023-07-09 19:49] LABS: Magnesium 1.9 mg/dL (1.6-2.6); Phosphorus 3.8 mg/dL (2.5-4.9)
[2023-07-09] MEDS: Gabapentin 300 MG Capsule PO (20:52)
[2023-07-09] MEDS: Metoprolol Tartrate 100 MG Tablet PO (20:52)
[2023-07-09] MEDS: traZODone 100 MG Tablet PO (20:53)
[2023-07-09] MEDS: Phenobarbital 32.4 MG Tablet PO (20:53)
[2023-07-09] MEDS: Ibuprofen 600 MG Tablet PO (20:53)
[2023-07-09] MEDS: Ondansetron 4 MG/2 ML Vial IV (20:54)
--- NOTE | 2023-07-09 20:59 | CM.ED ---
Social Work SW introduced self and role to patient. Pt reports he wants to detox. Pt unsure how much he drank today and reports he feels awful. SW provided support. SW called treatment navigator, no answer and VM is full. Tawanna Jett DIGITAL MARKETING ANALYST, RULING TECHNICIAN
[2023-07-09] MEDS: 0.9% Saline Lock 10 ML Syringe IV (21:07)
[2023-07-09] MEDS: dilTIAZem CD 240 MG Capsule PO (21:07)
[2023-07-09] MEDS: Lactated Ringers 1,000 ML 125 ML IV (21:07)
[2023-07-10] VITALS (7 sets, daily range): BP systolic 93–111; BP diastolic 47–79; PULSE 73–95; RESP 16–18; TEMP 36.2–36.9; O2SAT 92–100
[2023-07-10] MEDS: Loperamide 2 MG Capsule PO ×2 (00:34→20:48)
[2023-07-10] MEDS: hydrOXYzine PAM 25 MG Capsule 50 MG PO ×2 (00:35→08:54)
[2023-07-10] MEDS: Acetaminophen 325 MG Tablet 650 MG PO (00:35)
[2023-07-10] MEDS: Phenobarbital 32.4 MG Tablet PO ×6 (00:36→20:47)
[2023-07-10] MEDS: Gabapentin 300 MG Capsule PO ×2 (05:54→20:48)
[2023-07-10 07:08] LABS: ALB/GLOB Ratio 0.7 RATIO (0.9-2.4); AST(SGOT) 216 U/L (15-37); Alanine Aminotransfer ALT/SGPT 200 U/L (16-61); Albumin, Serum 2.5 g/dL (3.2-5.0); Alkaline Phosphatase 130 U/L (45-117); Anion Gap 12 (5-15); BUN 8 mg/dL (7-18); BUN/Creat Ratio 8.4 RATIO (10-20); Calcium,Total 8.2 mg/dL (8.5-10.1); Chloride 103 mmol/L (98-107); Creatinine, Serum 0.95 mg/dL (0.70-1.30); EST Glomerular Filtration Rate 82 mL/min (>60); Est Glom Filt Rate - Afr Amer 100 mL/min (>60); Globulin 3.6 g/dL (2.2-4.2); Glucose 72 mg/dL (74-106); Protein, Total 6.1 g/dL (6.4-8.2); Sodium Level 136 mmol/L (136-145)
[2023-07-10] MEDS: Thiamine Hydrochloride 100 MG Tablet PO ×2 (09:10)
[2023-07-10] MEDS: Folic Acid 1 MG Tablet PO (09:10)
[2023-07-10] MEDS: Aspirin 81 MG TAB.CHEW PO (09:19)
[2023-07-10] MEDS: Metoprolol Tartrate 100 MG Tablet PO (10:34)
[2023-07-10 12:11] LABS: CPK Total, Creatine Kinase 195 U/L (39-308)
--- NOTE | 2023-07-10 13:55 | PCM.PN.HOSP ---
Reason for Visit Reason for Visit: Diagnoses Alcohol use, unspecified with withdrawal, unspecified (07/09/23) Subjective Subjective Patient has a low blood pressure. Heart rate normal now but it was 90s to 120s last night. Patient has bulging in the back but does not remember Objective Data Objective Data Vital Signs: Vital Signs Temp Pulse Resp BP Pulse Ox O2 Del Method 97.9 F 85 16 93/55 L 97 Room Air 07/10/23 13:40 07/10/23 13:40 07/10/23 13:40 07/10/23 13:40 07/10/23 13:40 07/10/23 13:40 Oxygen Delivery Method Room Air Weight: 199 lb 8.293 oz Body Mass Index (BMI) 30.3 Intake & Output: Intake and Output for Last 24 Hours 07/08/23 07/09/23 07/10/23 23:59 23:59 23:59 Intake Total 1027.92 / 1027.92 Balance 1027.92 / 1027.92 Lab / Micro Data 07/09/23 18:36 07/10/23 06:08 Labs: Laboratory Results - last 24 hr 07/09/23 18:36: WBC 5.4, RBC 3.79 L, Hgb 13.4, Hct 39.2 L, MCV 103.4 H, MCH 35.4 H, MCHC 34.2, RDW Std Deviation 53.6 H, RDW Coeff of Pati 14.2, Plt Count 133 L, MPV 11.0, Immature Gran % (Auto) 0.900, Neut % (Auto) 65.3, Lymph % (Auto) 16.1 L, [place] % (Auto) 16.3 H, Eos % (Auto) 0.7, Baso % (Auto) 0.7, Absolute Neuts (auto) 3.5, Absolute Lymphs (auto) 0.87, Nucleated RBC % 0, PT 12.9, INR 1.0, Sodium 133 L, Potassium 3.6, Chloride 99, Carbon Dioxide 20.0 L, Anion Gap 14, BUN 7, Creatinine 0.80, Estim Creat Clear Calc 79.56, Est GFR (MDRD) Af Amer 122, Est GFR (MDRD) Non-Af 101, BUN/Creatinine Ratio 8.8 L, Glucose 90, Calcium 8.5, Phosphorus 3.8, Magnesium 1.9, Total Bilirubin 1.30 H, AST 315 H, ALT 256 H, Alkaline Phosphatase 157 H, Total Protein 7.0, Albumin 3.1 L, Globulin 3.9, Albumin/Globulin Ratio 0.8 L, Ethyl Alcohol 156.0 07/09/23 19:00: Urine Opiates Screen NEGATIVE, Urine Methadone Screen NEGATIVE, Ur Barbiturates Screen POSITIVE H, Ur Phencyclidine Scrn NEGATIVE, Ur Amphetamines Screen NEGATIVE, MDMA (Ecstasy) Screen NEGATIVE, U Benzodiazepines Scrn NEGATIVE, Urine Cocaine Screen NEGATIVE, U Cannabinoids Screen NEGATIVE, Ur Drug Screen Comment 07/10/23 06:08: Sodium 136, Potassium 4.0, Chloride 103, Carbon Dioxide 21.0, Anion Gap 12, BUN 8, Creatinine 0.95, Estim Creat Clear Calc 67.00, Est GFR (MDRD) Af Amer 100, Est GFR (MDRD) Non-Af 82, BUN/Creatinine Ratio 8.4 L, Glucose 72 L, Calcium 8.2 L, Total Bilirubin 1.40 H, AST 216 H, ALT 200 H, Alkaline Phosphatase 130 H, Total Creatine Kinase 195, Total Protein 6.1 L, Albumin 2.5 L, Globulin 3.6, Albumin/Globulin Ratio 0.7 L Physical Exam Narrative General: Alert, Oriented x3, Cooperative HEENT: Atraumatic, PERRLA, EOMI, Normocephalic Oral: No Gingival or Mucosal Lesions/ Ulcerations Neck: Supple, No JVD, Negative Carotid Bruits Lungs: Air entry diminished in bilateral lung bases. No crepitation/rhonchi Cardiovascular: Regular rate, Regular Rhythm, Normal S1, Normal S2, No murmurs Abdomen: Bowel Sounds Present, Soft, Non Tender, Non-Distended : No renal angle tenderness. No suprapubic tenderness. Extremities: No edema, Capillary Refill Less than 3 Seconds Skin: Subacute bruise over upper and lower back. No deep hematoma no tenderness Musculoskeletal: No Tenderness to Palpation of Joints or Extremities Neurological: Cranial nerves II-XII grossly intact, DTR 2+/4. No acute focal neurological deficit. Psychiatry: Chronic alcohol use dependent. Disorganized behavior Psych/Mental Status: Flat affect. Denies seizure/hallucinations Assessment & Plan Assessment/Plan (1) Alcohol withdrawal: QUALIFIERS: Complication of substance-induced condition: with perceptual disturbance Qualified Code(s): F10.932 - Alcohol use, unspecified with withdrawal with perceptual disturbance PLAN: Plan The patient is a 72 y/o M w/ PMHx: EtOH abuse, PAF, Anxiety and Depression, EtOH associated Cardiomyopathy, Obesity, HTN, Former tobacco use who presents to the [facility] ED on 07/09/23 with history of nearly 50 years of significant alcohol abuse usually drinking 12-24 malt liquors daily with presentation in the hospital secondary to alcohol withdrawal symptoms including severe tremors, palpitations with poor intake and nausea with no emesis with history of previous significant DVT prompting eventual ED evaluation. #1 Acute alcohol withdrawal syndrome with history of chronic alcohol use disorder with dependence, tolerance, relapse and multiple recurrent hospitalizations: Patient is admitted to floor. Patient is being admitted to [facility] floor. Patient on phenobarbital based order set along with other adjunctive medications gabapentin, Bentyl, Vistaril, clonidine, Klonopin as needed for alcohol withdrawal symptom control. CIWA monitor. manager of construction consulted. #2 Alcohol induced cardiomyopathy/chronic HFpEF: On 05/14/2023 echocardiogram with EF 55%, moderately enlarged LA and RA, mild MVI, mild to moderate TVI, RVSP 32 mmHg with no change since prior study 03/2022. Strongly encourage sobriety. Maintained on aspirin, statin/atorvastatin, metoprolol. #3. Paroxysmal A-fib: Patient was admitted in first week of June 2023 for A-fib with RVR with DTs during that presentation. Patient on metoprolol 100 mg and Cardizem CD 240 mg daily.. Patient blood pressure on lower side systolic 90s therefore Cardizem held. Continue metoprolol. He was tachycardic in 120s the morning but heart rate controlled. Patient not on Integrilin due to history of constant alcohol use and dependent on recurrent fall. 4. Chronic depression-patient is on Abilify and Cymbalta 5. Essential hypertension-patient is on metoprolol and amlodipine 6. Acute on chronic alcoholic hepatitis: Patient AST was in 50s in first week of June 2023 but now 315, 216. T. bili 1.30, ALT 256, alk phos 157. During hospitalization his transplant decreases as he is off alcohol. 7. Mild obesity, grade 1: BMI 30.3 kg/m?. 8. Other chronic comorbidities include former tobacco use DVT prophylaxis bilateral SCDs. Low risk for DVT. Charges/Coding Visit Charges Inpatient E&M: 41434 Subs Hosp L2
[2023-07-10] MEDS: traZODone 100 MG Tablet PO (20:48)
[2023-07-10] MEDS: Ibuprofen 600 MG Tablet PO (20:48)
[2023-07-11] MEDS: Phenobarbital 32.4 MG Tablet PO ×7 (01:19→20:12)
[2023-07-11] MEDS: Menthol/Lanolin/Calamine/Znox 113 GM Tube 1 APPLIC TOPICAL ×2 (01:19→08:28)
[2023-07-11] MEDS: hydrOXYzine PAM 25 MG Capsule 50 MG PO (01:19)
[2023-07-11] MEDS: Miconazole Nitrate 43 GM Bottle 1 APPLIC TOPICAL ×2 (01:20→08:27)
[2023-07-11 02:01] VITALS: BP 98/65; PULSE 74; RESP 16; TEMP 36.1; O2SAT 93
[2023-07-11 08:03] LABS: Absolute Lymphocyte Count 0.94 X10^3/uL (0.83-4.51); Absolute Neutrophil Count 2.6 X10^3/uL (2.0-7.7); Basophil# 0.06 X10^3/uL; Basophil% 1.4 % (0-1); Eosinophil# 0.16 X10^3/uL; Eosinophils% 3.7 % (0-5); Hemoglobin 12.8 g/dL (13.0-16.5); Lymphocyte # 0.94 X10^3/ul (0.83-4.51); Lymphocyte % 21.6 % (19-41); Mean Corp Hgb Conc 32.8 g/dL (32-36); Mean Corpuscular Hgb 35.9 pg (27.0-32.0); Mean Corpuscular Volume 109.2 fL (80-94); Mean Platelet Vol. 11.1 fl (6.2-12.0); Monocyte# 0.61 X10^3/uL; NRBC Flagged by Analyzer 0 % (0-5); Neutrophil # 2.55 X10^3/uL (2.7-7.7); Neutrophil % 58.4 % (47-70); Platelet Count 100 K/mm3 (150-450); RBC Distribution Width SD 57.2 fl (35.1-43.9); Red Blood Count 3.57 M/mm3 (4.6-6.2); White Blood Count 4.4 K/mm3 (4.4-11.0)
[2023-07-11 08:20] VITALS: BP 106/74; PULSE 86; RESP 18; TEMP 36.6; O2SAT 97
[2023-07-11 08:23] LABS: Anion Gap 8 (5-15); BUN 18 mg/dL (7-18); BUN/Creat Ratio 18.2 RATIO (10-20); Calcium,Total 8.4 mg/dL (8.5-10.1); Chloride 105 mmol/L (98-107); Creatinine, Serum 0.99 mg/dL (0.70-1.30); EST Glomerular Filtration Rate 79 mL/min (>60); Est Glom Filt Rate - Afr Amer 95 mL/min (>60); Estimated Creatinine Clearance 64.29 ml/min; Glucose 77 mg/dL (74-106); Potassium 3.2 mmol/L (3.5-5.1); Sodium Level 138 mmol/L (136-145)
[2023-07-11 08:26] VITALS: BP 106/74; PULSE 86
[2023-07-11] MEDS: Folic Acid 1 MG Tablet PO (08:26)
[2023-07-11] MEDS: Aspirin 81 MG TAB.CHEW PO (08:26)
[2023-07-11] MEDS: Thiamine Hydrochloride 100 MG Tablet PO (08:26)
[2023-07-11] MEDS: Metoprolol Tartrate 100 MG Tablet PO (08:26)
[2023-07-11] MEDS: Ibuprofen 600 MG Tablet PO (08:31)
[2023-07-11] MEDS: Gabapentin 300 MG Capsule PO (08:31)
[2023-07-11 11:00] VITALS: BP 92/62; PULSE 82; RESP 18; TEMP 36.6; O2SAT 98
[2023-07-11] MEDS: Loperamide 2 MG Capsule PO ×2 (13:05→17:21)
--- NOTE | 2023-07-11 13:29 | PCM.PN.HOSP ---
Reason for Visit Reason for Visit: Diagnoses Alcohol use, unspecified with withdrawal with perceptual disturbance (07/09/23) Alcohol use, unspecified with withdrawal, unspecified (07/09/23) Subjective Subjective Follow-up for acute alcohol withdrawal syndrome. Objective Data Objective Data Vital Signs: Vital Signs Temp Pulse Resp BP Pulse Ox O2 Del Method 97.9 F 82 18 92/62 98 Room Air 07/11/23 11:00 07/11/23 11:00 07/11/23 11:00 07/11/23 11:00 07/11/23 11:00 07/11/23 11:00 Oxygen Delivery Method Room Air Weight: 199 lb 8.293 oz Body Mass Index (BMI) 30.3 Intake & Output: Intake and Output for Last 24 Hours 07/09/23 07/10/23 07/11/23 23:59 23:59 23:59 Intake Total 1267.92 / 1267.92 Balance 1267.92 / 1267.92 Lab / Micro Data 07/11/23 06:30 07/11/23 07:40 Labs: Laboratory Results - last 24 hr 07/11/23 06:30: WBC 4.4, RBC 3.57 L, Hgb 12.8 L, Hct 39.0 L, MCV 109.2 H D, MCH 35.9 H, MCHC 32.8, RDW Std Deviation 57.2 H, RDW Coeff of Pati 14.0, Plt Count 100 L, MPV 11.1, Immature Gran % (Auto) 0.900, Neut % (Auto) 58.4, Lymph % (Auto) 21.6, [place] % (Auto) 14.0 H, Eos % (Auto) 3.7, Baso % (Auto) 1.4 H, Absolute Neuts (auto) 2.6, Absolute Lymphs (auto) 0.94, Nucleated RBC % 0 07/11/23 07:40: Sodium 138, Potassium 3.2 L, Chloride 105, Carbon Dioxide 25.0, Anion Gap 8, BUN 18, Creatinine 0.99, Estim Creat Clear Calc 64.29, Est GFR (MDRD) Af Amer 95, Est GFR (MDRD) Non-Af 79, BUN/Creatinine Ratio 18.2, Glucose 77, Calcium 8.4 L Physical Exam Narrative Patient is still have sometimes visual hallucinations. He sees sometimes snow on the road. Denies recent fall. Physical exam: General: Alert, Oriented x3, Cooperative HEENT: Atraumatic, PERRLA, EOMI, Normocephalic Oral: No Gingival or Mucosal Lesions/ Ulcerations Neck: Supple, No JVD, Negative Carotid Bruits Lungs: Air entry diminished in bilateral lung bases. No crepitation/rhonchi Cardiovascular: Regular rate, Regular Rhythm, Normal S1, Normal S2, No murmurs Abdomen: Bowel Sounds Present, Soft, Non Tender, Non-Distended : No renal angle tenderness. No suprapubic tenderness. Extremities: No edema, Capillary Refill Less than 3 Seconds Skin: Subacute bruise over upper and lower back. No deep hematoma no tenderness Musculoskeletal: No Tenderness to Palpation of Joints or Extremities Neurological: Cranial nerves II-XII grossly intact, DTR 2+/4. No acute focal neurological deficit. Psychiatry: Chronic alcohol use dependent. Disorganized behavior Psych/Mental Status: Flat affect. Denies seizure. Visual hallucinations. Assessment & Plan Assessment/Plan (1) Alcohol withdrawal: QUALIFIERS: Complication of substance-induced condition: with perceptual disturbance Qualified Code(s): F10.932 - Alcohol use, unspecified with withdrawal with perceptual disturbance PLAN: Plan The patient is a 72 y/o M w/ PMHx: EtOH abuse, PAF, Anxiety and Depression, EtOH associated Cardiomyopathy, Obesity, HTN, Former tobacco use who presents to the [facility] ED on 07/09/23 with history of nearly 50 years of significant alcohol abuse usually drinking 12-24 malt liquors daily with presentation in the hospital secondary to alcohol withdrawal symptoms including severe tremors, palpitations with poor intake and nausea with no emesis with history of previous significant DVT prompting eventual ED evaluation. #1 Acute alcohol withdrawal syndrome with history of chronic alcohol use disorder with dependence, tolerance, relapse and multiple recurrent hospitalizations: Patient is admitted to floor. Patient is being admitted to MedSurg floor. Patient on phenobarbital based order set along with other adjunctive medications gabapentin, Bentyl, Vistaril, clonidine, Klonopin as needed for alcohol withdrawal symptom control. CIWA monitor. booking manager consulted. 07/11: Continue above treatment. Hypokalemia potassium added. Magnesium 1.7 1 on normal therefore magnesium replacement added. Serum phosphorus normal. Patient has visual hallucination but otherwise no severe behavioral abnormality or in DT #2 Alcohol induced cardiomyopathy/chronic HFpEF: On 05/14/2023 echocardiogram with EF 55%, moderately enlarged LA and RA, mild MVI, mild to moderate TVI, RVSP 32 mmHg with no change since prior study 03/2022. Strongly encourage sobriety. Maintained on aspirin, statin/atorvastatin, metoprolol. #3. Paroxysmal A-fib: Patient was admitted in first week of June 2023 for A-fib with RVR with DTs during that presentation. Patient on metoprolol 100 mg and Cardizem CD 240 mg daily.. Patient blood pressure on lower side systolic 90s therefore Cardizem held. Continue metoprolol. He was tachycardic in 120s the morning but heart rate controlled. Patient not on Integrilin due to history of constant alcohol use and dependent on recurrent fall. 4. Chronic depression-patient is on Abilify and Cymbalta 5. Essential hypertension-patient is on metoprolol and amlodipine 6. Acute on chronic alcoholic hepatitis: Patient AST was in 50s in first week of June 2023 but now 315, 216. T. bili 1.30, ALT 256, alk phos 157. During hospitalization his transplant decreases as he is off alcohol. 7. Mild obesity, grade 1: BMI 30.3 kg/m?. 8. Other chronic comorbidities include former tobacco use DVT prophylaxis bilateral SCDs. Low risk for DVT. Charges/Coding Visit Charges Inpatient E&M: 24965 Subs Hosp L2
[2023-07-11] MEDS: Pantoprazole Sodium 40 MG Tablet PO ×2 (14:06→20:12)
[2023-07-11] MEDS: Magnesium Chloride 64 MG Delay Rel.Tablet 128 MG PO ×2 (14:06→20:12)
[2023-07-11 17:20] VITALS: BP 107/68; PULSE 87; RESP 18; TEMP 36.6; O2SAT 98
[2023-07-11 20:08] VITALS: BP 96/76; PULSE 94; RESP 20; TEMP 36.4; O2SAT 97
[2023-07-12] VITALS (8 sets, daily range): BP systolic 96–131; BP diastolic 60–84; PULSE 91–98; RESP 16–18; TEMP 36.5–36.8; O2SAT 91–98
[2023-07-12] MEDS: traZODone 100 MG Tablet PO ×2 (02:28→22:20)
[2023-07-12] MEDS: Phenobarbital 32.4 MG Tablet PO ×4 (05:42→22:21)
--- NOTE | 2023-07-12 06:56 | NURSING ---
lab girl caprice called and said pt used foul language w her and that he would not allow her to draw her blood
[2023-07-12] MEDS: Aspirin 81 MG TAB.CHEW PO (08:59)
[2023-07-12] MEDS: Pantoprazole Sodium 40 MG Tablet PO ×2 (08:59→22:20)
[2023-07-12] MEDS: Magnesium Chloride 64 MG Delay Rel.Tablet 128 MG PO ×2 (08:59→22:20)
[2023-07-12] MEDS: Folic Acid 1 MG Tablet PO (08:59)
[2023-07-12] MEDS: Miconazole Nitrate 43 GM Bottle 1 APPLIC TOPICAL ×2 (08:59→22:20)
[2023-07-12] MEDS: Menthol/Lanolin/Calamine/Znox 113 GM Tube 1 APPLIC TOPICAL ×2 (08:59→22:20)
[2023-07-12 09:50] LABS: Absolute Lymphocyte Count 0.59 X10^3/uL (0.83-4.51); Absolute Neutrophil Count 4.3 X10^3/uL (2.0-7.7); Basophil# 0.03 X10^3/uL; Basophil% 0.5 % (0-1); Eosinophil# 0.14 X10^3/uL; Eosinophils% 2.5 % (0-5); Hematocrit 37.7 % (40-54); Hemoglobin 12.6 g/dL (13.0-16.5); Lymphocyte # 0.59 X10^3/ul (0.83-4.51); Lymphocyte % 10.4 % (19-41); Mean Corp Hgb Conc 33.4 g/dL (32-36); Mean Corpuscular Hgb 35.6 pg (27.0-32.0); Mean Corpuscular Volume 106.5 fL (80-94); Mean Platelet Vol. 10.6 fl (6.2-12.0); Monocyte# 0.63 X10^3/uL; Monocyte% 11.1 % (0-10); NRBC Flagged by Analyzer 0 % (0-5); Neutrophil # 4.29 X10^3/uL (2.7-7.7); Neutrophil % 75.1 % (47-70); POSITIVE DIFFERENTIAL YES; Platelet Count 126 K/mm3 (150-450); RBC Distribution Width CV 13.7 % (11.6-14.6); RBC Distribution Width SD 54.4 fl (35.1-43.9); Red Blood Count 3.54 M/mm3 (4.6-6.2); White Blood Count 5.7 K/mm3 (4.4-11.0)
[2023-07-12 09:51] LABS: Differential Indicated SCAN CRITERIA MET
[2023-07-12] MEDS: Gabapentin 300 MG Capsule PO (10:56)
[2023-07-12 11:11] LABS: Anion Gap 8 (5-15); BUN 12 mg/dL (7-18); BUN/Creat Ratio 10.9 RATIO (10-20); Calcium,Total 8.2 mg/dL (8.5-10.1); Chloride 106 mmol/L (98-107); EST Glomerular Filtration Rate 70 mL/min (>60); Est Glom Filt Rate - Afr Amer 84 mL/min (>60); Estimated Creatinine Clearance 57.86 ml/min; Glucose 152 mg/dL (74-106); Magnesium 1.8 mg/dL (1.6-2.6); Potassium 3.5 mmol/L (3.5-5.1); Sodium Level 138 mmol/L (136-145)
--- NOTE | 2023-07-12 12:16 | PN.HOSP_ITS ---
Reason for Visit Reason for Visit: Diagnoses Alcohol use, unspecified with withdrawal with perceptual disturbance (07/09/23) Alcohol use, unspecified with withdrawal, unspecified (07/09/23) Objective Data Objective Data Vital Signs: Vital Signs Temp Pulse Resp BP Pulse Ox O2 Del Method 98.2 F 96 18 96/60 98 Room Air 07/12/23 08:51 07/12/23 08:51 07/12/23 08:51 07/12/23 08:51 07/12/23 08:51 07/12/23 08:55 Oxygen Delivery Method Room Air Weight: 199 lb 8.293 oz Body Mass Index (BMI) 30.3 Intake & Output: Intake and Output for Last 24 Hours 07/10/23 07/11/23 07/12/23 23:59 23:59 23:59 Intake Total 1267.92 / 1267.92 Balance 1267.92 / 1267.92 Lab / Micro Data 07/12/23 09:38 07/12/23 10:05 Labs: Laboratory Results - last 24 hr 07/12/23 09:38: WBC 5.7, RBC 3.54 L, Hgb 12.6 L, Hct 37.7 L, MCV 106.5 H, MCH 35.6 H, MCHC 33.4, RDW Std Deviation 54.4 H, RDW Coeff of Pati 13.7, Plt Count 126 L, MPV 10.6, Immature Gran % (Auto) 0.400, Neut % (Auto) 75.1 H, Lymph % (Auto) 10.4 L, Winkler % (Auto) 11.1 H, Eos % (Auto) 2.5, Baso % (Auto) 0.5, Absolute Neuts (auto) 4.3, Absolute Lymphs (auto) 0.59 L, Nucleated RBC % 0, Sodium Cancelled, Potassium Cancelled, Chloride Cancelled, Carbon Dioxide Cance lled, Anion Gap Cancelled, BUN Cancelled, Creatinine Cancelled, Estim Creat Clear Calc Cancelled, Est GFR (MDRD) Af Amer Cancelled, Est GFR (MDRD) Non-Af Cancelled, BUN/Creatinine Ratio Cancelled, Glucose Cancelled, Calcium Cancelled, Magnesium Cancelled 07/12/23 10:05: Sodium 138, Potassium 3.5, Chloride 106, Carbon Dioxide 24.0, Anion Gap 8, BUN 12, Creatinine 1.10, Estim Creat Clear Calc 57.86, Est GFR (MDRD) Af Amer 84, Est GFR (MDRD) Non-Af 70, BUN/Creatinine Ratio 10.9, Glucose 152 H, Calcium 8.2 L, Magnesium 1.8 Physical Exam Narrative Patient is still have sometimes visual hallucinations. Patient seem more sleepy and lethargic although is talking but slow. Physical exam: General: Awake, oriented x3, Cooperative HEENT: Atraumatic, PERRLA, EOMI, Normocephalic Oral: No Gingival or Mucosal Lesions/ Ulcerations Neck: Supple, No JVD, Negative Carotid Bruits Lungs: Air entry diminished in bilateral lung bases. No crepitation/rhonchi Cardiovascular: Regular rate, Regular Rhythm, Normal S1, Normal S2, No murmurs Abdomen: Bowel Sounds Present, Soft, Non Tender, Non-Distended : No renal angle tenderness. No suprapubic tenderness. Extremities: No edema, Capillary Refill Less than 3 Seconds Skin: Subacute bruise over upper and lower back. No deep hematoma no tenderness Musculoskeletal: No Tenderness to Palpation of Joints or Extremities Neurological: Cranial nerves II-XII grossly intact, DTR 2+/4. No acute focal neurological deficit. Psychiatry: Chronic alcohol use dependent. Disorganized behavior Psych/Mental Status: Flat affect. Denies seizure. Visual hallucinations. Assessment & Plan Assessment/Plan (1) Alcohol withdrawal: QUALIFIERS: Complication of substance-induced condition: with p erceptual disturbance Qualified Code(s): F10.932 - Alcohol use, unspecified with withdrawal with perceptual disturbance PLAN: Plan The patient is a 72 y/o M w/ PMHx: EtOH abuse, PAF, Anxiety and Depression, EtOH associated Cardiomyopathy, Obesity, HTN, Former tobacco use who presents to the [facility] ED on 07/09/23 with history of nearly 50 years of significant alcohol abuse usually drinking 12-24 malt liquors daily with presentation in the hospital secondary to alcohol withdrawal symptoms including severe tremors, palpitations with poor intake and nausea with no emesis with history of previous significant DVT prompting eventual ED evaluation. #1 Acute alcohol withdrawal syndrome with history of chronic alcohol use disorder with dependence, tolerance, relapse and multiple recurrent hospitalizations: Patient is admitted to floor. [facility] Patient on phenobarbital based order set along with other adjunctive medications gabapentin, Bentyl, Vistaril, clonidine, Klonopin as needed for alcohol withdrawal symptom control. CIWA monitor. manager diabetes consulted. 07/11: Continue above treatment. Hypokalemia potassium added. Magnesium 1.7 1 on normal therefore magnesium replacement added. Serum phosphorus normal. Patient has visual hallucination but otherwise no severe behavioral abnormality or in DT 07/12: Patient looks more sleepy and drowsy today. As per the nursing staff in charge nurse, patient agreeable for inpatient rehab at this time. Therefore we will keep the patient for 180 manager diabetes to work on Thursday for inpatient alcohol rehab. Patient has mild chronic macrocytic anemia hemoglobin 12.6 g daily macrocytic with elevated MCV MCH. RDW normal. Patient already on folic a casa and thiamine. Serum B12 ordered. Started on cyanocobalamin. #2 Alcohol induced cardiomyopathy/chronic HFpEF: On 05/14/2023 echocardiogram with EF 55%, moderately enlarged LA and RA, mild MVI, mild to moderate TVI, RVSP 32 mmHg with no change since prior study 03/2022. Strongly encourage sobriety. Maintained on aspirin, statin/atorvastatin, metoprolol. #3. Paroxysmal A-fib: Patient was admitted in first week of June 2023 for A- fib with RVR with DTs during that presentation. Patient on metoprolol 100 mg and Cardizem CD 240 mg daily.. Patient blood pressure on lower side systolic 9 0s therefore Cardizem held. Continue metoprolol. He was tachycardic in 120s the morning but heart rate controlled. Patient not on Integrilin due to history of constant alcohol use and dependent on recurrent fall. 4. Chronic depression-patient is on Abilify and Cymbalta 5. Essential hypertension-patient is on metoprolol and amlodipine 6. Acute on chronic alcoholic hepatitis: Patient AST was in 50s in first week of June 2023 but now 315, 216. T. bili 1.30, ALT 256, alk phos 157. During hospitalization his transplant decreases as he is off alcohol. 7. Mild obesity, grade 1: BMI 30.3 kg/m?. 8. Other chronic comorbidities include former tobacco use DVT prophylaxis bilateral SCDs. Low risk for DVT. Charges/Coding Visit Charges Inpatient E&M: 70451 Subs Hosp L2
[2023-07-12] MEDS: Cyanocobalamin 500 MCG Tablet 1000 MCG PO (12:54)
[2023-07-12] MEDS: Loperamide 2 MG Capsule PO (16:37)
[2023-07-12] MEDS: Metoprolol Tartrate 100 MG Tablet PO (22:24)
[2023-07-13] VITALS (7 sets, daily range): BP systolic 118–139; BP diastolic 72–101; PULSE 72–83; RESP 14–16; TEMP 36.4–36.8; O2SAT 97–98
[2023-07-13] MEDS: hydrOXYzine PAM 25 MG Capsule 50 MG PO (05:01)
[2023-07-13] MEDS: Phenobarbital 32.4 MG Tablet PO ×2 (05:01→11:30)
[2023-07-13] MEDS: Gabapentin 300 MG Capsule PO (07:52)
[2023-07-13] MEDS: Folic Acid 1 MG Tablet PO (07:52)
[2023-07-13] MEDS: Mag Hydrox/Al Hydrox/Simeth 30 ML UDC PO (07:52)
[2023-07-13] MEDS: Thiamine Hydrochloride 100 MG Tablet PO (07:52)
[2023-07-13] MEDS: Aspirin 81 MG TAB.CHEW PO (07:52)
[2023-07-13] MEDS: Magnesium Chloride 64 MG Delay Rel.Tablet 128 MG PO (07:53)
[2023-07-13] MEDS: Pantoprazole Sodium 40 MG Tablet PO (07:53)
[2023-07-13] MEDS: Cyanocobalamin 500 MCG Tablet 1000 MCG PO (07:59)
[2023-07-13] MEDS: dilTIAZem CD 240 MG Capsule PO (08:02)
[2023-07-13] MEDS: Metoprolol Tartrate 100 MG Tablet PO (08:02)
[2023-07-13] MEDS: Miconazole Nitrate 43 GM Bottle 1 APPLIC TOPICAL (08:04)
[2023-07-13] MEDS: Menthol/Lanolin/Calamine/Znox 113 GM Tube 1 APPLIC TOPICAL (08:04)
--- NOTE | 2023-07-13 10:04 | ADDICTION ---
This teletypewriter installer met with PT to conduct ASAM, MSE, AUDIT, DUDIT assessments. PT A+Ox4 and participated actively. All assessments completed and placed in PT's chart. PT reports that plans to f/u with residential treatment services at [facility]. He has an established counselor and peer supporter.
[2023-07-13 12:35] LABS: Vitamin B12 544 pg/mL (211-911)
--- NOTE | 2023-07-13 13:49 | PCM.DC.SUM ---
Providers Date of Admission: 07/09/23 Primary Care Physician: Faheem Montalvo MD Reason For Visit: ACUTE ETOH WITHDRAWL Diagnosis Discharge Diagnosis (1) Alcohol withdrawal: Status: Acute Code(s): F10.939 - Alcohol use, unspecified with withdrawal, unspecified Qualifiers: Complication of substance-induced condition: with perceptual disturbance Qualified Code(s): F10.932 - Alcohol use, unspecified with withdrawal with perceptual disturbance Plan: Patient to go [facility]. Concerning that patient will resume drinking given lack on insight. Medications at Discharge Home Medications aspirin 81 mg chewable tablet 81 mg PO BREAKFAST #0 tabs 05/15/23 diltiazem HCl 240 mg capsule,extended release 24 hr 240 mg PO DAILY #30 caps 06/06/23 metoprolol tartrate 100 mg tablet 100 mg PO BID #60 tabs 06/06/23 Hospital Course Operations None Procedures None Physical Exam Const alert and no apparent distress Constitutional Narrative: up in bed. Yelled at me. Weight / BMI Weight Weight: 90.5 kg Body Mass Index (BMI) 30.3 ABG / Lab / Microbiology Data 07/12/23 09:38 07/12/23 10:05 Laboratory: Laboratory Results - last 24 hr 07/13/23 05:27: Vitamin B12 544 D/C Instructions Discharge Diet: No restrictions Meaningful Use Info Meaningful Use Diagnoses (Choose all that apply): None applicable Discharge Plan Admission Admit Date/Time: 07/09/23 19:20 Primary Reason for Your Visit: alcohol withdrawal Attending Provider: Turner Carl Primary Care Provider: Faheem Montalvo Consulting Providers: Aurea Carlton; Arsh Hunter Discharge Orders/Prescriptions Prescriptions: Continued metoprolol tartrate 100 mg Tablet 100 mg PO BID Qty: 60 0RF diltiazem HCl 240 mg Capsule,Extended Release 24hr 240 mg PO DAILY Qty: 30 0RF aspirin 81 mg Tablet,Chewable 81 mg PO BREAKFAST Qty: 0 0RF Discontinued atorvastatin 40 mg tablet 40 tab PO DAILY Patient Comments: 1 tablet by mouth as directed Referrals / Follow Up: Faheem Montalvo MD [Primary Care Provider] - Disposition Disposition (needs filled in before D/C Order can be placed): Inpatient Rehab Unit/Facility Charges/Coding Visit Charges Inpatient E&M: 11311 Disch Hosp
== END 2023-07-13 13:35 | DRG 897 ==
LOC: ED 19:34 → MS3 19:38
PROVIDERS: Internal Medicine; Admitting Provider Family Medicine; Emergency Provider Emergency Medicine; PCP Family Medicine
DX: F10.232 Alcohol dependence with withdrawal with perceptual disturbance (principal); I42.6 Alcoholic cardiomyopathy; I50.32 Chronic diastolic (congestive) heart failure; I11.0 Hypertensive heart disease with heart failure; I48.0 Paroxysmal atrial fibrillation; D53.9 Nutritional anemia, unspecified; K70.10 Alcoholic hepatitis without ascites; F32.A Depression, unspecified; I10 Essential (primary) hypertension; E78.5 Hyperlipidemia, unspecified; E66.9 Obesity, unspecified; Z79.82 Long term (current) use of aspirin; Z87.891 Personal history of nicotine dependence; Z68.33 Body mass index [BMI] 33.0-33.9, adult; Y90.6 Blood alcohol level of 120-199 mg/100 ml
CPT/HCPCS: 36415; 80048; 80053; 80307; 82077; 82550; 82607; 83735; 84100; 85025; 85610; 99285; J7120; A4216; J2405

== ENCOUNTER 2023-07-25 08:15 | Inpatient (IN) | payer MEDICARE, MEDICAID, SELFPAY ==
[2023-07-25] VITALS (7 sets, daily range): BP systolic 113–178; BP diastolic 70–94; PULSE 67–96; RESP 16–18; TEMP 35.7–36.8; O2SAT 97–100; BMI 32.5; BMI 32.0
--- NOTE | 2023-07-25 08:49 | EKG12_ITS ---
Test Reason : GENERAL Blood Pressure : / mmHG Vent. Rate : 122 BPM Atrial Rate : 000 BPM P-R Int : 000 ms QRS Dur : 084 ms QT Int : 310 ms P-R-T Axes : 000 042 -80 degrees QTc Int : 441 ms Atrial fibrillation with rapid ventricular response Nonspecific ST and T wave abnormality Abnormal ECG Confirmed by NATHAN MEJIA, MARTITA ([id number]), newspaper editor managing RODRIGO DUNLAP ([id number]) on 07/28/2023 10:32:22 AM Referred By: Confirmed By:AVE EVANS MD
--- NOTE | 2023-07-25 08:51 | CT_ITS ---
INDICATION: injury EXAMINATION: CT BRAIN - CT Head or Brain W/O Contrast Injection TECHNIQUE: Multiple axial images were obtained of the head without intravenous contrast. A radiation dose optimization technique was used for this scan. IV Contrast dosage and agent: None. RADIATION DOSAGE (If Supplied By Facility): CTDIvol = ( 44.99 ) mGy, DLP = ( 863.60 ) mGycm COMPARISON: Prior study dated: May 31, 2022 FINDINGS: BRAIN PARENCHYMA: No intra- or extra-axial hemorrhage. There are stable foci of low attenuation within the white matter of the hemispheres, more pronounced on the left consistent with old infarcts. No evidence of acute infarct. No intracranial mass or mass effect. There is preservation of the rolle/white matter interface. Posterior fossa structures are unremarkable. CSF SPACES: Appropriate for age. No hydrocephalus. Basal cisterns are patent. CALVARIUM, SKULL BASE, PARANASAL SINUSES AND MASTOID AIR CELLS: There are stable round low-attenuation foci within the maxillary sinuses consistent with mucous retention cysts or polyps. No discrete lytic or blastic abnormalities. There is a stable subcutaneous round focus overlying the right posterior calvarium which may reflect a sebaceous cyst. ORBITS: Both globes, extraocular muscles, optic nerves and retrobulbar fat appear unremarkable. ASPECTS Score for Acute Strokes: 10 CT/Brain/Head without Contrast IMPRESSION: No acute intracranial process. Chronic small vessel ischemia. Electronically Signed: Jackei Flores MD at 10:50 EDT ,
--- NOTE | 2023-07-25 09:04 | EX.ED.DYSGE1 ---
HPI History of Present Illness Chief Complaint: Anxiety Informant: patient and EMS Narrative Narrative: 72-year-old presenting to the emergency room chief complaint of shortness of breath. Patient has a history of atrial fibrillation and alcoholism. Patient is in the hospital approximately every month sometimes twice a month for alcohol withdrawal. He is unsure if he signed out AGAINST MEDICAL ADVICE or was discharged last week. He states that he does not follow-up after his detoxification stays because he is embarrassed. He does not eat because food makes him nauseous and supplements his caloric intake with alcohol. Patient states that he feels short of breath he believes due to his anxiety. This is not uncommon for him. He did not take his morning medications of diltiazem and metoprolol. He states that he fell several weeks ago and injured his head is unsure if he was evaluated for that or not. He states that he is wearing 3 pairs of pants but cannot tell me why he told me that or why he would be wearing 3 pairs of pants. He denies any current pain. I asked the patient if the shortness of breath he is experiencing today is similar to his anxiety and he states yes. He denies any chest pain. [facility] Medical History Alcohol abuse Alcohol abuse with physiological dependence Alcoholic cardiomyopathy Anxiety and depression Atrial fibrillation Atrial flutter, paroxysmal Blood pressure elevated without history of HTN Elevated liver enzymes Former tobacco use History of acute alcoholic hepatitis HTN (hypertension) Hyperlipidemia Left atrial enlargement Obesity PAF (paroxysmal atrial fibrillation) Panic disorder Home Medications aspirin 81 mg chewable tablet 81 mg PO BREAKFAST #0 tabs 05/15/23 [Rx Last Taken Unknown] diltiazem HCl 240 mg capsule,extended release 24 hr 240 mg PO DAILY #30 caps 06/06/23 [Rx Last Taken Unknown] metoprolol tartrate 100 mg tablet 100 mg PO BID #60 tabs 06/06/23 [Rx Last Taken Unknown] Allergy/AdvReac Type Severity Reaction Status Date / Time No Known Allergies Allergy Verified 07/25/23 08:24 Family History Mother CVA (cerebral vascular accident) Father Cancer lung cancer Surgical History Hx of cholecystectomy Social History household members: none housing: apartment Smoking Status: Former smoker alcohol intake: current alcohol intake frequency: 3 or more drinks per day details: 24-12 ounce beers daily substance use type: does not use ROS ROS ED Constitutional Constitutional ED: Denies chills, fever(s) or weight loss Eyes Eyes: Denies change in vision or diplopia ENT ENT ED: Denies ear pain, rhinorrhea or sore throat Cardiovascular Cardiovascular: Denies chest pain, orthopnea, palpitations or racing heartbeat Respiratory/Chest Respiratory/Chest: Reports dyspnea; Denies cough or orthopnea Gastrointestinal Gastrointestinal: Denies abdominal pain, diarrhea, nausea or vomiting Genitourinary Genitourinary ED: Denies dysuria, hematuria or urinary frequency Musculoskeletal Musculoskeletal: Denies arthralgias or myalgias Integumentary Reports Abrasions; Denies abscess or rash Neurologic Neurologic: Denies headache(s) or weakness Psychiatric Psychiatric: Reports anxiety; Denies depression, suicidal ideation or suicidal thoughts Endocrine Endocrinology: Denies polydipsia, polyphagia or polyuria Allergic/Immunologic Allergic/Immunologic ED: Denies mouth swelling, tongue swelling or urticaria EXAM Physical Exam Const Vital Signs: 07/25/23 08:17 07/25/23 11:17 Temperature 98.3 F Temperature Source Oral Pulse Rate 95 80 Respiratory Rate 16 18 Blood Pressure 161/89 H 113/76 Blood Pressure Mean 113 88 Pulse Ox 99 98 Oxygen Delivery Method Room Air Room Air Positive well nourished, well developed and obese General Appearance ED: well developed Nutritional Appearance: obese HEENT Reports normocephalic, head/scalp atraumatic and moist mucous membranes Eyes PERRL and EOMs intact bilaterally Neck no lymphadenopathy, supple and no JVD Resp normal respiratory effort and clear to auscultation bilaterally Cardio no murmurs Rate: tachycardic Rhythm: abnormal rhythm irregularly irregular GI normal to inspection, nondistended, normoactive bowel sounds and non-tender Palpation: soft Back/Spine no CVA tenderness and normal ROM Extremity normal to inspection General Extremety ED: Negative for edema General Extremity: Negative for edema Neuro oriented x3 and CN's II-XII intact bilaterally Sensorium / Orientation: alert Motor Exam: strength 5/5 throughout Psych mental status grossly normal Mood & Affect: anxious; Negative for depressed or tearful Skin no rashes or lesions noted Skin Narrative: Abrasions of the forehead and face MDM MDM MDM Narrative Medical decision making narrative: Patient EKG is A-fib with RVR he received his morning doses of medication which is resulted in his heart rate coming down. Basic blood work is negative. 0.9 with a potassium of 3.7. Troponin is normal at 8. He has elevation of alk phos ALT and AST. Urinalysis is negative. Alcohol level is negative. Urine toxicology was positive for phenobarbital which she was on last week during his admission. CT of the brain was obtained due to his fall shows no intracranial hemorrhage or fracture. My interpretation of the chest x-ray is no acute process. Patient received a dose of phenobarbital here in the department. I will speak with the hospitalist regarding admission Lab Data Attestation: I reviewed the patient's lab results. Labs: Laboratory Results - last 24 hr 07/25/23 07/25/23 09:22 10:00 WBC 7.0 RBC 4.06 L Hgb 14.3 Hct 42.0 MCV 103.4 H MCH 35.2 H MCHC 34.0 RDW Std Deviation 53.5 H RDW Coeff of Pati 14.0 Plt Count 357 MPV 9.5 Immature Gran % (Auto) 0.400 Neut % (Auto) 82.5 H Lymph % (Auto) 8.1 L [place] % (Auto) 7.5 Eos % (Auto) 0.6 Baso % (Auto) 0.9 Absolute Neuts (auto) 5.8 Absolute Lymphs (auto) 0.57 L Nucleated RBC % 0 Differential Comment SCANNED Sodium 139 Potassium 3.7 Chloride 107 Carbon Dioxide 24.0 Anion Gap 8 BUN 5 L Creatinine 1.04 Estim Creat Clear Calc 61.20 Est GFR (MDRD) Af Amer 90 Est GFR (MDRD) Non-Af 74 BUN/Creatinine Ratio 4.8 L Glucose 192 H Calcium 8.4 L Magnesium 1.9 Total Bilirubin 0.40 Direct Bilirubin 0.25 AST 72 H ALT 81 H Alkaline Phosphatase 150 H Troponin I High Sens 8 Total Protein 7.0 Albumin 3.1 L Globulin 3.9 Urine Color Yellow Urine Clarity Clear Urine pH 5.0 Ur Specific [place] 1.020 Urine Protein 30 H Urine Glucose (UA) Normal Urine Ketones 5 H Urine Occult Blood 25 H Urine Nitrite Negative Urine Bilirubin Negative Urine Urobilinogen 1 H Ur Leukocyte Esterase 25 H Urine RBC 0 SEEN Urine WBC 0-5 SEEN Ur Squamous Epith Cells 0-5 SEEN Urine Bacteria RARE Hyaline Casts 5-10 SEEN Urine Mucus 0 SEEN Urine Opiates Screen NEGATIVE Urine Methadone Screen NEGATIVE Ur Barbiturates Screen POSITIVE H Ur Phencyclidine Scrn NEGATIVE Ur Amphetamines Screen NEGATIVE MDMA (Ecstasy) Screen NEGATIVE U Benzodiazepines Scrn NEGATIVE Urine Cocaine Screen NEGATIVE U Cannabinoids Screen NEGATIVE Ur Drug Screen Comment Ethyl Alcohol 4.0 Radiography Diagnostic Testing: Clinical Impression(s) from Imaging Studies Brain CT 07/25/23 08:51 IMPRESSION: No acute intracranial process. Chronic small vessel ischemia. Electronically Signed: Jackie Flores MD at 10:50 EDT , Chest X-Ray 07/25/23 09:06 IMPRESSION: No radiographic evidence of acute cardiopulmonary disease. Electronically Signed: Jackie Flores MD at 10:55 EDT , EKG Initial EKG: Attestation: I personally reviewed and interpreted this EKG as follows: Comments: Atrial fibrillation with rapid ventricular response of 122 bpm. No concerning features of ACS noted Management Discussion w/another healthcare provider: Hospitalist Discharge Plan Triage Chief Complaint: Anxiety ED Provider: King Cho Dx/Rx/DC Orders Clinical Impression: Alcoholism, Atrial fibrillation with RVR, Alcohol withdrawal, Anxiety Prescriptions: No Action metoprolol tartrate 100 mg Tablet 100 mg PO BID Qty: 60 0RF diltiazem HCl 240 mg Capsule,Extended Release 24hr 240 mg PO DAILY Qty: 30 0RF aspirin 81 mg Tablet,Chewable 81 mg PO BREAKFAST Qty: 0 0RF Primary Care Provider: Faheem Montalvo Referrals: Faheem Montalvo MD [Primary Care Provider] -
--- NOTE | 2023-07-25 09:06 | RAD_ITS ---
INDICATION: dyspnea EXAMINATION/TECHNIQUE: X-RAY - XR Chest 1 View COMPARISON: Prior study dated: March 11, 2023 FINDINGS: LINES/DEVICES: None. LUNGS: There is stable elevation of the left hemidiaphragm associated with stable linear opacities within the left mid and lower lung consistent with atelectasis and/or scarring. No new consolidation, edema or effusion. No pneumothorax. MEDIASTINUM AND CARDIOVASCULAR STRUCTURES: Cardiac silhouette not enlarged. Central airways and mediastinal contour are unremarkable. BONES AND SOFT TISSUES: Unremarkable. RAD/Chest 1 View (Portable) IMPRESSION: No radiographic evidence of acute cardiopulmonary disease. Electronically Signed: Jackie Flores MD at 10:55 EDT ,
[2023-07-25 09:37] LABS: Absolute Lymphocyte Count 0.57 X10^3/uL (0.83-4.51); Absolute Neutrophil Count 5.8 X10^3/uL (2.0-7.7); Basophil# 0.06 X10^3/uL; Basophil% 0.9 % (0-1); Eosinophil# 0.04 X10^3/uL; Eosinophils% 0.6 % (0-5); Hemoglobin 14.3 g/dL (13.0-16.5); Lymphocyte # 0.57 X10^3/ul (0.83-4.51); Lymphocyte % 8.1 % (19-41); Mean Corpuscular Hgb 35.2 pg (27.0-32.0); Mean Corpuscular Volume 103.4 fL (80-94); Mean Platelet Vol. 9.5 fl (6.2-12.0); Monocyte# 0.53 X10^3/uL; Monocyte% 7.5 % (0-10); NRBC Flagged by Analyzer 0 % (0-5); Neutrophil # 5.79 X10^3/uL (2.7-7.7); Neutrophil % 82.5 % (47-70); POSITIVE DIFFERENTIAL YES; Platelet Count 357 K/mm3 (150-450); RBC Distribution Width SD 53.5 fl (35.1-43.9); Red Blood Count 4.06 M/mm3 (4.6-6.2)
[2023-07-25 09:42] LABS: Differential Indicated SCAN CRITERIA MET
[2023-07-25 09:54] LABS: AST(SGOT) 72 U/L (15-37); Alanine Aminotransfer ALT/SGPT 81 U/L (16-61); Albumin, Serum 3.1 g/dL (3.2-5.0); Alkaline Phosphatase 150 U/L (45-117); Bilirubin, Direct 0.25 mg/dL (0.00-0.30); Globulin 3.9 g/dL (2.2-4.2)
[2023-07-25 10:05] LABS: Anion Gap 8 (5-15); BUN 5 mg/dL (7-18); BUN/Creat Ratio 4.8 RATIO (10-20); Calcium,Total 8.4 mg/dL (8.5-10.1); Chloride 107 mmol/L (98-107); Creatinine, Serum 1.04 mg/dL (0.70-1.30); EST Glomerular Filtration Rate 74 mL/min (>60); Est Glom Filt Rate - Afr Amer 90 mL/min (>60); Glucose 192 mg/dL (74-106); Magnesium 1.9 mg/dL (1.6-2.6); Potassium 3.7 mmol/L (3.5-5.1); Sodium Level 139 mmol/L (136-145); Troponin-I HS 8 pg/mL (3.0-78.0)
[2023-07-25 10:12] LABS: Mucous, Urine 0 SEEN /hpf (<or=2+); Red Blood Cells-Urine 0 SEEN /hpf (0-5)
[2023-07-25] MEDS: Metoprolol Tartrate 100 MG Tablet PO ×2 (10:12→21:59)
[2023-07-25] MEDS: dilTIAZem CD 240 MG Capsule PO (10:12)
[2023-07-25 10:14] LABS: Color, Urine Yellow (Yellow); Glucose, Dipstick Normal (Normal); Ketone-Dipstick 5 mg/dl (Negative); Leukocyte Esterase-Dipstick 25 /ul (Negative); Nitrite-Dipstick Negative (Negative); Occult Blood-Urine 25 /ul (Negative); Protein-Dipstick 30 mg/dl (Negative); Urine Bilirubin Dipstick Negative (Negative); Urine Clarity Clear (Clear); Urine Urobilinogen 1 mg/dl (Normal)
[2023-07-25 10:18] LABS: Differential Comment SCANNED
[2023-07-25] MEDS: Phenobarbital 32.4 MG Tablet PO (10:21)
[2023-07-25 10:29] LABS: Amphetamine Urine VISTA NEGATIVE (<1000 ng/mL); Barbiturate Urine VISTA POSITIVE (< 200 ng/mL); Benzodiazepine Urine VISTA NEGATIVE (< 200 ng/mL); Cocaine Urine VISTA NEGATIVE (< 300 ng/mL); Ecstacy Urine VISTA NEGATIVE (< 500 ng/mL); Methadone Urine VISTA NEGATIVE (< 300 ng/mL); PCP Urine VISTA NEGATIVE (< 25 ng/mL); THC Urine VISTA NEGATIVE (< 50 ng/mL); Vista UDS pH Range 5
[2023-07-25 10:44] LABS: Bacteria RARE /hpf (None Seen); Squamous Epithelial Cells - UA 0-5 SEEN /hpf (0-5); White Blood Cells 0-5 SEEN /hpf (0-5)
[2023-07-25 10:45] LABS: Hyaline Cast 5-10 SEEN /lpf (0-5)
--- NOTE | 2023-07-25 11:35 | HP.PCM_ITS ---
HPI - General General Date of Admission: 07/25/23 Date of Service: 07/25/23 Chief Complaint: anxiety HPI Narrative LANIE DELONG, is a 72 M with a PMH as outlined who presents via the ED on 07/25/2023 with a complaint of shortness of breath and anxiety. He has a history of alcohol abuse and has had multiple admissions for acute alcohol withdrawal with the most recent one being just less than a week ago. He was discharged home but states he did not follow-up with outpatient rehab because he felt embarrassed. He states he usually drinks about 20 cans of beer a day. Patient said he hates his life and wants to get help to get better. He denied any suicidal or homicidal ideations. He said he just felt terrible but denied any fever, chills, palpitations, dizziness, nausea or vomiting or any other symptoms. Review of systems otherwise negative. Vitals in the ED were blood pressure 124/83, pulse rate of 89 respirate rate of 18. Temperature was 97.7 Fahrenheit and was saturating at 99% on room air. CBC and BMP were unremarkable apart from mildly elevated AST and ALT as well as ALP. Urine tox was positive for barbiturates. CT of the brain showed no acute intracranial pathology and showed chronic small vessel ischemia. CXR showed no acute cardiopulmonary pathology. He has been admitted to be managed for acute alcohol withdrawal. [facility] [place] Medical History Alcohol abuse Alcohol abuse with physiological dependence Alcoholic cardiomyopathy Anxiety and depression Atrial fibrillation Atrial flutter, paroxysmal Blood pressure elevated without history of HTN Elevated liver enzymes Former tobacco use History of acute alcoholic hepatitis HTN (hypertension) Hyperlipidemia Left atrial enlargement Obesity PAF (paroxysmal atrial fibrillation) Panic disorder Home Medications aspirin 81 mg chewable tablet 81 mg PO BREAKFAST #0 tabs 05/15/23 [Rx Last Taken Unknown] diltiazem HCl 240 mg capsule,extended release 24 hr 240 mg PO DAILY #30 caps 06/06/23 [Rx Last Taken Unknown] metoprolol tartrate 100 mg tablet 100 mg PO BID #60 tabs 06/06/23 [Rx Last Taken Unknown] Allergy/AdvReac Type Severity Reaction Status Date / Time No Known Allergies Allergy Verified 07/25/23 08:24 Family History Mother CVA (cerebral vascular accident) Father Cancer lung cancer Surgical History Hx of cholecystectomy Social History household members: none housing: apartment Smoking Status: Former smoker alcohol intake: current alcohol intake frequency: 3 or more drinks per day details: 24-12 ounce beers daily substance use type: does not use ROS Review of Systems ROS Unobtainable: Denies due to encephalopathy Constitutional Constitutional: Reports fatigue, malaise and weakness; Denies anorexia, chills or fever(s) Eyes Eyes: Denies change in vision ENT HEENT: Denies dysphagia, headache(s), sore throat or throat swelling Cardiovascular Cardiovascular: Denies chest pain, edema, palpitations, paroxysmal nocturnal dyspnea or syncope Respiratory/Chest Respiratory/Chest: Denies cough, shortness of breath at rest or shortness of breath with exertion Gastrointestinal Gastrointestinal: Reports constipation; Denies abdominal pain, nausea or vomiting Genitourinary Genitourinary: Denies dysuria Musculoskeletal Musculoskeletal: Denies joint pain Neurologic Neurologic: Denies confusion, dizziness, focal weakness, headache(s), numbness or seizures Psychiatric Psychiatric: Denies anxiety or depression Endocrine Endocrinology: Denies change in body appearance Vital Signs Vital Signs Vital Signs: 07/25/23 08:17 07/25/23 11:17 Temperature 98.3 F Temperature Source Oral Pulse Rate 95 80 Respiratory Rate 16 18 Blood Pressure 161/89 H 113/76 Blood Pressure Mean 113 88 Pulse Ox 99 98 Oxygen Delivery Method Room Air Room Air Weight Weight: 214 lb 4.629 oz Body Mass Index (BMI) 32.5 Physical Exam Const alert and oriented x3 Constitutional Narrative: restless, looked very unkempt HEENT normocephalic, head/scalp atraumatic, moist oral mucous membranes and oropharynx normal Eyes EOMs intact bilaterally Neck no lymphadenopathy, supple and no JVD Lymph Lymphatic: no lymphadenopathy noted and no lymphedema noted Resp normal respiratory effort, normal air movement and clear to auscultation bilaterally Cardio regular rate, regular rhythm, S1 normal heart sound, S2 normal heart sound and no murmurs GI normal to inspection, nondistended, normoactive bowel sounds, soft to palpation, non-tender and non-distended Extremity normal capillary refill, no clubbing, cyanosis or edema and no calf tenderness Skin General Skin Exam: no breakdown Neuro CN's II-XII intact bilaterally, no focal motor deficits, no sensory deficits noted and deep tendon reflexes 2+ bilaterally Motor Exam: strength 5/5 throughout and general weakness Psych thought process normal Appearance: appropriate Results Lab / Micro Data 07/25/23 09:22 07/25/23 09:22 Labs: Laboratory Results - last 24 hr 07/25/23 09:22: WBC 7.0, RBC 4.06 L, Hgb 14.3, Hct 42.0, MCV 103.4 H, MCH 35.2 H , MCHC 34.0, RDW Std Deviation 53.5 H, RDW Coeff of Pati 14.0, Plt Count 357, MPV 9.5, Immature Gran % (Auto) 0.400, Neut % (Auto) 82.5 H, Lymph % (Auto) 8.1 L, Wilkin % (Auto) 7.5, Eos % (Auto) 0.6, Baso % (Auto) 0.9, Absolute Neuts (auto) 5.8, Absolute Lymphs (auto) 0.57 L, Nucleated RBC % 0, Differential Comment SCANNED, Sodium 139, Potassium 3.7, Chloride 107, Carbon Dioxide 24.0, Anion Gap 8, BUN 5 L, Creatinine 1.04, Estim Creat Clear Calc 61.20, Est GFR (MDRD) Af Amer 90, Est GFR (MDRD) Non-Af 74, BUN/Creatinine Ratio 4.8 L, Glucose 192 H, Calcium 8.4 L, Magnesium 1.9, Total Bilirubin 0.40, Direct Bilirubin 0.25, AST 72 H, ALT 81 H, Alkaline Phosphatase 150 H, Troponin I High Sens 8, Total Protein 7.0, Albumin 3.1 L, Globulin 3.9, Ethyl Alcohol 4.0 07/25/23 10:00: Urine Color Yellow, Urine Clarity Clear, Urine pH 5.0, Ur Specific [place] 1.020, Urine Protein 30 H, Urine Glucose (UA) Normal, Urine Ketones 5 H, Urine Occult Blood 25 H, Urine Nitrite Negative, Urine Bilirubin Negative, Urine Urobilinogen 1 H, Ur Leukocyte Esterase 25 H, Urine RBC 0 SEEN, Urine WBC 0-5 SEEN, Ur Squamous Epith Cells 0-5 SEEN, Urine Bacteria RARE, Hyaline Casts 5-10 SEEN, Urine Mucus 0 SEEN, Urine Opiates Screen NEGATIVE, Urine Methadone Screen NEGATIVE, Ur Barbiturates Screen POSITIVE H, Ur Phencyclidine Scrn NEGATIVE, Ur Amphetamines Screen NEGATIVE, MDMA (Ecstasy) Screen NEGATIVE, U Benzodiazepines Scrn NEGATIVE, Urine Cocaine Screen NEGATIVE, U Cannabinoids Screen NEGATIVE, Ur Drug Screen Comment Radiology Impression Brain CT 07/25/23 08:51 IMPRESSION: No acute intracranial process. Chronic small vessel ischemia. Electronically Signed: Jackie Flores MD at 10:50 EDT , Chest X-Ray 07/25/23 09:06 IMPRESSION: No radiographic evidence of acute cardiopulmonary disease. Electronically Signed: Jackie Flores MD at 10:55 EDT , Assessment & Plan Assessment/Plan (1) Alcohol withdrawal: PLAN: Plan #Acute alcohol withdrawal * Drinks ~ 20 beers daily * serum alcohol level was 4 * start on alcohol withdrawal protocol with phenobarbital * thiamine, folic acid and multivite * monitor CIWA score * #Alcohol induced cardiomyopathy: Echo from May 2023 showed EF of 55% with moderately enlarged left atrium and right atrium. On aspirin and statin as well as metoprolol. #Paroxysmal A-fib: Came in with A-fib with RVR but does have subsequently resol chloe. On metoprolol and Cardizem. Not on anticoagulation due to alcohol abuse history and risk of falls. #Depression: On Abilify and Cymbalta. #Hypertension: On metoprolol and amlodipine. #Transaminitis: Liver enzymes mildly elevated. This likely due to chronic alcohol abuse. Will trend and monitor. #DVT prophylaxis: Low risk. Encouraged to ambulate. Charges/Coding Visit Charges Inpatient E&M: 28352 Init Hosp L3 Procedures Hospitalists Procedures: 89672 Advncd Care Plan 30 Min
--- NOTE | 2023-07-25 11:42 | NURSING ---
[facility] ALCOHOL DETOX, AFIB W RVR
[2023-07-25] MEDS: Acetaminophen 325 MG Tablet 650 MG PO ×2 (13:42→19:50)
[2023-07-25] MEDS: 0.9% Saline Lock 10 ML Syringe IV (13:42)
[2023-07-25] MEDS: Phenobarbital 32.4 MG Tablet 64.8 MG PO ×3 (13:42→21:59)
[2023-07-25] MEDS: Ondansetron 4 MG/2 ML Vial IV (13:42)
[2023-07-25] MEDS: traZODone 100 MG Tablet PO (21:59)
[2023-07-26] MEDS: Phenobarbital 32.4 MG Tablet 64.8 MG PO ×6 (01:49→21:40)
[2023-07-26] MEDS: Acetaminophen 325 MG Tablet 650 MG PO ×2 (01:54→16:21)
[2023-07-26 06:20] VITALS: BP 139/99; PULSE 79; RESP 18; TEMP 37.1; O2SAT 99
[2023-07-26 10:15] VITALS: BP 131/79; PULSE 84; RESP 18; TEMP 36.9; O2SAT 100
[2023-07-26] MEDS: Aspirin 81 MG TAB.CHEW PO (10:18)
[2023-07-26] MEDS: Folic Acid 1 MG Tablet PO (10:18)
[2023-07-26] MEDS: Thiamine Hydrochloride 100 MG Tablet PO (10:18)
[2023-07-26 10:19] VITALS: BP 131/79; PULSE 84
[2023-07-26] MEDS: dilTIAZem CD 240 MG Capsule PO (10:19)
[2023-07-26] MEDS: Metoprolol Tartrate 100 MG Tablet PO ×2 (10:19→21:40)
--- NOTE | 2023-07-26 10:57 | PN_ITS ---
Subjective Subjective Patient seen and examined. He states he is feeling better today. He does admit to some shakes and tremors but denies any nausea or vomiting or any other symptoms. Review of systems otherwise negative. Objective Data Objective Data Vital Signs: Vital Signs Temp Pulse Resp BP Pulse Ox O2 Del Method 98.5 F 84 18 131/79 H 100 Room Air 07/26/23 10:15 07/26/23 10:19 07/26/23 10:15 07/26/23 10:19 07/26/23 10:15 07/26/23 10:15 Oxygen Delivery Method Room Air Weight: 210 lb 8.663 oz Body Mass Index (BMI) 32.0 Intake & Output: Intake and Output for Last 24 Hours 07/24/23 07/25/23 07/26/23 23:59 23:59 23:59 Intake Total 240 / 240 Balance 240 / 240 Lab / Micro Data 07/25/23 09:22 07/25/23 09:22 Physical Exam Const alert, oriented x3 and no apparent distress Constitutional Narrative: restless, looked very unkempt General Appearance: cooperative and well developed HEENT normocephalic, head/scalp atraumatic, moist oral mucous membranes and oropharynx normal Eyes EOMs intact bilaterally Neck no lymphadenopathy, supple and no JVD Lymph Lymphatic: no lymphadenopathy noted and no lymphedema noted Resp normal respiratory effort, normal air movement and clear to auscultation bilaterally Cardio regular rate, regular rhythm, S1 normal heart sound, S2 normal heart sound and no murmurs GI normal to inspection, nondistended, normoactive bowel sounds, soft to palpation, non-tender and non-distended Extremity normal capillary refill, no clubbing, cyanosis or edema and no calf tenderness Skin General Skin Exam: no breakdown Neuro CN's II-XII intact bilaterally, no focal motor deficits, no sensory deficits noted and deep tendon reflexes 2+ bilaterally Motor Exam: strength 5/5 throughout and general weakness Psych thought process normal and cooperative Appearance: appropriate Assessment & Plan Assessment/Plan (1) Alcohol withdrawal: PLAN: Plan #Acute alcohol withdrawal * Drinks ~ 20 beers daily * serum alcohol level was 4 * start on alcohol withdrawal protocol with phenobarbital * thiamine, folic acid and multivite * monitor CIWA score * #Alcohol induced cardiomyopathy * Echo from May 2023 showed EF of 55% with moderately enlarged left atrium and right atrium. On aspirin and statin as well as metoprolol. #Paroxysmal A-fib: On metoprolol and Cardizem. Not on anticoagulation due to alcohol abuse history and risk of falls. HR better controlled #Depression: On Abilify and Cymbalta. #Hypertension: On metoprolol and amlodipine. #Transaminitis: Liver enzymes mildly elevated. This likely due to chronic alc ohol abuse. Will trend and monitor. #DVT prophylaxis: Low risk. Encouraged to ambulate. Charges/Coding Visit Charges Inpatient E&M: 91121 Subs Hosp L2
[2023-07-26 16:15] VITALS: BP 95/74; PULSE 75; RESP 18; TEMP 36.4; O2SAT 99
[2023-07-26 21:40] VITALS: PULSE 84
[2023-07-26] MEDS: traZODone 100 MG Tablet PO (21:40)
[2023-07-26 21:50] VITALS: BP 131/83; PULSE 84; RESP 18; TEMP 36.6; O2SAT 98
--- NOTE | 2023-07-26 23:43 | NURSING ---
Patient refusing to wear telemetry, keeps pulling if off
[2023-07-27] VITALS (7 sets, daily range): BP systolic 96–129; BP diastolic 66–92; PULSE 80–88; RESP 18; TEMP 36.1–36.9; O2SAT 94–100
[2023-07-27] MEDS: Phenobarbital 32.4 MG Tablet 64.8 MG PO ×3 (01:40→10:27)
[2023-07-27] MEDS: Folic Acid 1 MG Tablet PO (08:32)
[2023-07-27] MEDS: Aspirin 81 MG TAB.CHEW PO (08:32)
[2023-07-27] MEDS: Thiamine Hydrochloride 100 MG Tablet PO (08:32)
[2023-07-27] MEDS: Metoprolol Tartrate 100 MG Tablet PO ×2 (08:32→23:01)
[2023-07-27] MEDS: dilTIAZem CD 240 MG Capsule PO (08:32)
--- NOTE | 2023-07-27 09:48 | PN.HOSP_ITS ---
Reason for Visit Reason for Visit: Diagnoses Alcohol use, unspecified with withdrawal, unspecified (07/25/23) Subjective Subjective Pulled himself out of [facility] because he didn't like the [facility] vibe. Objective Data Objective Data Vital Signs: Vital Signs Temp Pulse Resp BP Pulse Ox O2 Del Method 36.8 C 86 18 109/76 100 Room Air 07/27/23 08:30 07/27/23 08:32 07/27/23 08:30 07/27/23 08:32 07/27/23 08:30 07/27/23 08:30 Oxygen Delivery Method Room Air Weight: 95.5 kg Body Mass Index (BMI) 32.0 Intake & Output: Intake and Output for Last 24 Hours 07/25/23 07/26/23 07/27/23 23:59 23:59 23:59 Intake Total 240 / 240 480 / 480 Balance 240 / 240 480 / 480 Lab / Micro Data 07/25/23 09:22 07/25/23 09:22 Physical Exam Const alert and no apparent distress Neuro Sensorium / Orientation: awake Psych affect normal Assessment & Plan Assessment/Plan (1) Alcohol withdrawal: QUALIFIERS: Complication of substance-induced condition: uncomplicated Qualified Code(s): F10.930 - Alcohol use, unspecified with withdrawal, uncomplicated PLAN: pt has been ambivalent about quitting Cyclical behavior: drinks, feels bad, comes to the hospital, gives half-hearted attempt at quitting, goes home and drinks again. Repeats the loop, again and again. on phenobarbital It has been my experience with this patient, he truly does not want to quit. It is unfortunate for his health, however, he continues to present to the hospital with the same story and resumes the same process. It is my recommendation that if he fails this episode, that he should not be admitted to this hospital unless there is true medical necessity. Addiction medicine has been helpful in obtain programs for this patient, but this patient needs a different approach given his numerous presentations and failures. Will dc phenobarbital. I have advised no further drinking alcohol. PLAN: Plan Chronic conditions: * Alcohol induced cardiomyopathy: Echo from May 2023 showed EF of 55% with moderately enlarged left atrium and right atrium. On aspirin and statin as well as metoprolol. * Paroxysmal A-fib: Came in with A-fib with RVR but does have subsequently resolved. On metoprolol and Cardizem. Not on anticoagulation due to alcohol abuse history and risk of falls. * Depression: On Abilify and Cymbalta. * Hypertension: On metoprolol and amlodipine. * Transaminitis: Liver enzymes mildly elevated. This likely due to chronic alco hol abuse. Will trend and monitor. DVT prophylaxis: Low risk. Encouraged to ambulate. Greater than 35 minutes of which greater than 50% of the time counseling the patient at bedside about his vicious cycle and emphasizing that the patient needs to buy in. Charges/Coding Visit Charges Inpatient E&M: 53832 Subs Hosp L2
[2023-07-28 05:26] VITALS: BP 108/76; PULSE 84; RESP 16; TEMP 36.7; O2SAT 96
[2023-07-28] MEDS: Thiamine Hydrochloride 100 MG Tablet PO (08:16)
[2023-07-28] MEDS: Folic Acid 1 MG Tablet PO (08:16)
[2023-07-28] MEDS: Aspirin 81 MG TAB.CHEW PO (08:16)
--- NOTE | 2023-07-28 08:43 | PN.HOSP_ITS ---
Reason for Visit Reason for Visit: Diagnoses Alcohol use, unspecified with withdrawal, uncomplicated (07/25/23) Alcohol use, unspecified with withdrawal, unspecified (07/25/23) Subjective Subjective No events overnight. Objective Data Objective Data Vital Signs: Vital Signs Temp Pulse Resp BP Pulse Ox O2 Del Method 36.7 C 84 16 108/76 96 Room Air 07/28/23 05:26 07/28/23 05:26 07/28/23 05:26 07/28/23 05:26 07/28/23 05:26 07/28/23 05:26 Oxygen Delivery Method Room Air Weight: 95.5 kg Body Mass Index (BMI) 32.0 Intake & Output: Intake and Output for Last 24 Hours 07/26/23 07/27/23 07/28/23 23:59 23:59 23:59 Intake Total 480 / 480 840 / 840 Balance 480 / 480 840 / 840 Lab / Micro Data 07/25/23 09:22 07/25/23 09:22 Physical Exam Const alert and no apparent distress HEENT head/scalp atraumatic Assessment & Plan Assessment/Plan (1) Alcohol withdrawal: QUALIFIERS: Complication of substance-induced condition: uncomplicated Qualified Code(s): F10.930 - Alcohol use, unspecified with withdrawal, uncomplicated PLAN: pt has been ambivalent about quitting Cyclical behavior: drinks, feels bad, comes to the hospital, gives half-hearted attempt at quitting, goes home and drinks again. Repeats the loop, again and again. on phenobarbital It has been my experience with this patient, he truly does not want to quit. It is unfortunate for his health, however, he continues to present to the hospital with the same story and resumes the same process. It is my recommendation that if he fails this episode, that he should not be admitted to this hospital unless there is true medical necessity. Addiction medicine has been helpful in obtain programs for this patient, but this patient needs a different approach given his numerous presentations and failures. Will dc phenobarbital. I have advised no further consumption of alcohol. PLAN: Plan Chronic conditions: * Alcohol induced cardiomyopathy: Echo from May 2023 showed EF of 55% with moderately enlarged left atrium and right atrium. On aspirin and statin as well as metoprolol. * Paroxysmal A-fib: Came in with A-fib with RVR but does have subsequently resolved. On metoprolol and Cardizem. Not on anticoagulation due to alcohol abuse history and risk of falls. * Depression: On Abilify and Cymbalta. * Hypertension: On metoprolol and amlodipine. * Transaminitis: Liver enzymes mildly elevated. This likely due to chronic alcohol abuse. Will trend and monitor. DVT prophylaxis: Low risk. Encouraged to ambulate.
[2023-07-28 09:51] VITALS: BP 110/70; PULSE 88; RESP 16; TEMP 36.9; O2SAT 98
[2023-07-28 09:54] VITALS: BP 110/70; PULSE 88
[2023-07-28] MEDS: dilTIAZem CD 240 MG Capsule PO (09:54)
[2023-07-28] MEDS: Metoprolol Tartrate 100 MG Tablet PO (09:54)
--- NOTE | 2023-07-28 10:50 | DS.PCM_ITS ---
Providers Date of Admission: 07/25/23 Primary Care Physician: Faheem Montalvo MD Reason For Visit: ACUTE ALCOHOL WITHDRAWL Diagnosis Discharge Diagnosis (1) Alcohol withdrawal: Status: Acute Code(s): F10.939 - Alcohol use, unspecified with withdrawal, unspecified Qualifiers: Complication of substance-induced condition: uncomplicated Qualified Code(s): F10.930 - Alcohol use, unspecified with withdrawal, uncomplicated Plan: pt has been ambivalent about quitting Cyclical behavior: drinks, feels bad, comes to the hospital, gives half-hearted attempt at quitting, goes home and drinks again. Repeats the loop, again and again. on phenobarbital It has been my experience with this patient, he truly does not want to quit. It is unfortunate for his health, however, he continues to present to the hospital with the same story and resumes the same process. It is my recommendation that if he fails this episode, that he should not be admitted to this hospital unless there is true medical necessity. Addiction medicine has been helpful in obtain programs for this patient, but this patient needs a different approach given his numerous presentations and failures. Will dc phenobarbital. I have advised no further consumption of alcohol. Plan Chronic conditions: * Alcohol induced cardiomyopathy: Echo from May 2023 showed EF of 55% with moderately enlarged left atrium and right atrium. On aspirin and statin as well as metoprolol. * Paroxysmal A-fib: Came in with A-fib with RVR but does have subsequently resolved. On metoprolol and Cardizem. Not on anticoagulation due to alcohol abuse history and risk of falls. * Depression: On Abilify and Cymbalta. * Hypertension: On metoprolol and amlodipine. * Transaminitis: Liver enzymes mildly elevated. This likely due to chronic alcohol abuse. Will trend and monitor. DVT prophylaxis: Low risk. Encouraged to ambulate. Medications at Discharge Home Medications aspirin 81 mg chewable tablet 81 mg PO BREAKFAST #0 tabs 05/15/23 diltiazem HCl 240 mg capsule,extended release 24 hr 240 mg PO DAILY #30 caps 06/06/23 metoprolol tartrate 100 mg tablet 100 mg PO BID #60 tabs 06/06/23 multivitamin 1 tab PO DAILY #30 tabs 07/28/23 Hospital Course Operations None Procedures None Summary of Care Provided Minutes Spent on Discharge: 32 Hospital Course: Patient was admitted with a fall. Alcohol level was 4 when he presented. Patient was started on phenobarbital for alcohol withdrawal. Patient in no clear evidence of alcohol withdrawal while he was here so his phenobarbital was discontinued yesterday. Patient was stable overnight. This was the patient's 13th admission this calendar year. Patient continues to present wishing to have treatment for alcohol withdrawal and then invariably always goes back to drinking alcohol. It has been advised by addiction medicine for him to cut back, however I disagree completely that this patient should not drink alcohol whatsoever. I have told the patient this that he should not drink and to continue to follow-up with addiction management. I have low confidence that the patient will remain sober and will likely return to the hospital again seeking treatment. As mentioned above, this is his 13th hospitalization this calendar year at this institution. And the vast majority, if not all have been related with seeking treatment for alcohol withdrawal. It is clear that we are not actually helping him by bringing him in. In the future, it is my recommendation that this patient not be admitted unless there is medical necessity. Patient simply requesting treatment for alcohol withdrawal should not pereira him admission unless he is going through florid alcohol withdrawal or has another medical condition that would warrant admission. Weight / BMI Weight Weight: 95.5 kg Body Mass Index (BMI) 32.0 ABG / Lab / Microbiology Data 07/25/23 09:22 07/25/23 09:22 D/C Instructions Discharge Diet: No restrictions Meaningful Use Info Meaningful Use Diagnoses (Choose all that apply): None applicable Discharge Plan Admission Admit Date/Time: 07/25/23 12:16 Primary Reason for Your Visit: Fall Attending Provider: Turner Carl Primary Care Provider: Faheem Montalvo Consulting Providers: Tiffanie Chatman Instructions Additional Instructions / Restrictions: DO NOT DRINK ANY ALCOHOL. You are not able to moderate, therefore, don't drink any alcohol. Please keep in contact with [facility] for services. It is very difficult to quit on your own without help. Discharge Orders/Prescriptions Prescriptions: New multivitamin Tablet 1 tab PO DAILY Qty: 30 0RF Continued metoprolol tartrate 100 mg Tablet 100 mg PO BID Qty: 60 0RF diltiazem HCl 240 mg Capsule,Extended Release 24hr 240 mg PO DAILY Qty: 30 0RF aspirin 81 mg Tablet,Chewable 81 mg PO BREAKFAST Qty: 0 0RF Referrals / Follow Up: Faheem Montalvo MD [Primary Care Provider] - Within 2 Weeks Disposition Disposition (needs filled in before D/C Order can be placed): Home, Self Care Charges/Coding Visit Charges Inpatient E&M: 93066 Disch Hosp >30min
--- NOTE | 2023-07-28 11:10 | PHA.DC.MR.R ---
Pharmacy [facility] Med Reconciliation Pharmacy Service has performed discharge medication reconciliation for this patient. The patient's discharge medication list was reviewed for discrepancies and discrepancies were resolved. Medications at Discharge Home Medications aspirin 81 mg chewable tablet 81 mg PO BREAKFAST #0 tabs 05/15/23 diltiazem HCl 240 mg capsule,extended release 24 hr 240 mg PO DAILY #30 caps 06/06/23 metoprolol tartrate 100 mg tablet 100 mg PO BID #60 tabs 06/06/23 multivitamin 1 tab PO DAILY #30 tabs 07/28/23
--- NOTE | 2023-07-28 11:19 | ADDICTION ---
This physician underwriter met with PT to conduct ASAM, MSE, AUDIT assessments and to plan for d/c. PT A+Ox4 and participated actively. All assessments completed in PT's chart.Pt appeared and reported that he was depressed and needed a beer. He reported that he doesn't believe that he can live without alcohol. We discussed treatment options and he agreed to continue reaching out. He agreed to call his counselor. PT plans to f/u with [facility] for counseling services. PTwill need transportation post d/c from [facility].
== END 2023-07-28 13:03 | disposition home or self-care (01) | DRG 897 ==
LOC: ED 11:55 → PCU 12:22
PROVIDERS: Admitting Provider Student in an Organized Health Care Education/Training Program; Emergency Provider Emergency Medicine; PCP Family Medicine
DX: F10.239 Alcohol dependence with withdrawal, unspecified (principal); I42.6 Alcoholic cardiomyopathy; I48.0 Paroxysmal atrial fibrillation; I10 Essential (primary) hypertension; F32.A Depression, unspecified; F41.9 Anxiety disorder, unspecified; E66.9 Obesity, unspecified; Z79.82 Long term (current) use of aspirin; Z79.899 Other long term (current) drug therapy; Z87.891 Personal history of nicotine dependence; Z68.32 Body mass index [BMI] 32.0-32.9, adult
CPT/HCPCS: 70450; 71045; 80048; 80076; 80307; 81001; 82077; 83735; 84484; 85025; 93005; 97161; 99285; A4216; J2405

== ENCOUNTER 2023-08-18 10:29 | Inpatient (IN) | payer MEDICARE, MEDICAID, SELFPAY ==
[2023-08-18 10:35] VITALS: BP 91/71; PULSE 79; RESP 22; TEMP 35.4; O2SAT 100
[2023-08-18 10:37] VITALS: BMI 31.4
--- NOTE | 2023-08-18 12:22 | ED.RN ---
PER DR XIONG, HOLD OFF ON ATIVAN AT THIS TIME. PT TOLD RN THAT LAST DRINK WAS 3HOUR SHIFT [employer] MELTING
[2023-08-18 12:33] LABS: Absolute Neutrophil Count 5.1 X10^3/uL (2.0-7.7); Basophil# 0.04 X10^3/uL; Basophil% 0.6 % (0-1); Eosinophil# 0.02 X10^3/uL; Eosinophils% 0.3 % (0-5); Hematocrit 38.6 % (40-54); Hemoglobin 13.4 g/dL (13.0-16.5); Lymphocyte % 7.5 % (19-41); Mean Corp Hgb Conc 34.7 g/dL (32-36); Mean Corpuscular Hgb 35.8 pg (27.0-32.0); Mean Corpuscular Volume 103.2 fL (80-94); Mean Platelet Vol. 10.1 fl (6.2-12.0); Monocyte# 0.99 X10^3/uL; Monocyte% 14.9 % (0-10); NRBC Flagged by Analyzer 0 % (0-5); Neutrophil # 5.07 X10^3/uL (2.7-7.7); Neutrophil % 76.2 % (47-70); POSITIVE DIFFERENTIAL YES; Platelet Count 180 K/mm3 (150-450); RBC Distribution Width CV 14.2 % (11.6-14.6); RBC Distribution Width SD 54.3 fl (35.1-43.9); Red Blood Count 3.74 M/mm3 (4.6-6.2); White Blood Count 6.7 K/mm3 (4.4-11.0)
[2023-08-18 12:36] LABS: Differential Indicated SCAN CRITERIA MET
[2023-08-18 12:40] LABS: Anion Gap 9 (5-15); BUN 5 mg/dL (7-18); BUN/Creat Ratio 6.5 RATIO (10-20); Calcium,Total 8.6 mg/dL (8.5-10.1); Chloride 105 mmol/L (98-107); Creatinine, Serum 0.77 mg/dL (0.70-1.30); EST Glomerular Filtration Rate 105 mL/min (>60); Est Glom Filt Rate - Afr Amer 127 mL/min (>60); Glucose 108 mg/dL (74-106); Potassium 4.1 mmol/L (3.5-5.1); Sodium Level 138 mmol/L (136-145)
[2023-08-18 13:01] LABS: Alcohol, Blood (Medical)-Serum < 3.0 mg/dL
[2023-08-18 13:25] LABS: Amphetamine Urine NEGATIVE (<1000 ng/mL); Barbiturate Urine POSITIVE (< 200 ng/mL); Benzodiazepine Urine NEGATIVE (< 200 ng/mL); Cocaine Urine NEGATIVE (< 300 ng/mL); Ecstacy Urine NEGATIVE (< 500 ng/mL); Methadone Urine NEGATIVE (< 300 ng/mL); Opiates Urine NEGATIVE (< 300 ng/mL); PCP Urine NEGATIVE (< 25 ng/mL); THC Urine NEGATIVE (< 50 ng/mL); Vista UDS pH Range 5
--- NOTE | 2023-08-18 14:26 | HP.PCM.HOS_ITS ---
HPI - General General Date of Admission: 08/18/23 Date of Service: 08/18/23 Chief Complaint: Acute EtOH Withdrawal HPI Narrative LANIE DELONG, is a 72 M who presents [facility] Medical History Alcohol abuse Alcohol abuse with physiological dependence Alcoholic cardiomyopathy Anxiety and depression Atrial fibrillation Atrial flutter, paroxysmal Blood pressure elevated without history of HTN Elevated liver enzymes Former tobacco use History of acute alcoholic hepatitis HTN (hypertension) Hyperlipidemia Left atrial enlargement Obesity PAF (paroxysmal atrial fibrillation) Panic disorder Home Medications aspirin 81 mg chewable tablet 81 mg PO BREAKFAST heart health #0 tabs 05/15/23 [Rx Last Taken Unknown] diltiazem HCl 240 mg capsule,extended release 24 hr 240 mg PO DAILY heart #30 caps 06/06/23 [Rx Last Taken Unknown] metoprolol tartrate 100 mg tablet 100 mg PO BID blood pressure #60 tabs 06/06/23 [Rx Last Taken Unknown] multivitamin 1 tab PO DAILY #30 tabs 07/28/23 [Rx Last Taken Unknown] Allergy/AdvReac Type Severity Reaction Status Date / Time No Known Allergies Allergy Verified 07/25/23 08:24 Family History Mother CVA (cerebral vascular accident) Father Cancer lung cancer Surgical History Hx of cholecystectomy Social History household members: none housing: apartment Smoking Status: Former smoker alcohol intake: current alcohol intake frequency: 3 or more drinks per day details: 24-12 ounce beers daily substance use type: does not use Vital Signs Vital Signs Vital Signs: 08/18/23 10:35 Temperature 95.7 F L Temperature Source Temporal Pulse Rate 79 Respiratory Rate 22 H Blood Pressure 91/71 Blood Pressure Mean 77 Pulse Ox 100 Results Lab / Micro Data 08/18/23 12:20 08/18/23 12:20 Labs: Laboratory Results - last 24 hr 08/18/23 12:05: Urine Opiates Screen NEGATIVE, Urine Methadone Screen NEGATIVE, Ur Barbiturates Screen POSITIVE H, Ur Phencyclidine Scrn NEGATIVE, Ur Amphetamines Screen NEGATIVE, MDMA (Ecstasy) Screen NEGATIVE, U Benzodiazepines Scrn NEGATIVE, Urine Cocaine Screen NEGATIVE, U Cannabinoids Screen NEGATIVE, Ur Drug Screen Comment 08/18/23 12:20: WBC 6.7, RBC 3.74 L, Hgb 13.4, Hct 38.6 L, MCV 103.2 H, MCH 35.8 H, MCHC 34.7, RDW Std Deviation 54.3 H, RDW Coeff of Pati 14.2, Plt Count 180, MPV 10.1, Immature Gran % (Auto) 0.500, Neut % (Auto) 76.2 H, Lymph % (Auto) 7.5 L, [place] % (Auto) 14.9 H, Eos % (Auto) 0.3, Baso % (Auto) 0.6, Absolute Neuts (auto) 5.1, Absolute Lymphs (auto) 0.50 L, Nucleated RBC % 0, Differential Comment COMMENT, Sodium 138, Potassium 4.1, Chloride 105, Carbon Dioxide 24.0, Anion Gap 9, BUN 5 L, Creatinine 0.77, Est GFR (MDRD) Af Amer 127, Est GFR (MDRD) Non-Af 105, BUN/Creatinine Ratio 6.5 L, Glucose 108 H, Calcium 8.6, Ethyl Alcohol < 3.0
--- NOTE | 2023-08-18 14:26 | PCM.HP.STD ---
HPI - General General Date of Admission: 08/18/23 Date of Service: 08/18/23 Chief Complaint: Acute EtOH Withdrawal HPI Narrative The patient is a 72 y/o M w/ PMHx: EtOH abuse, PAF, Anxiety and Depression, EtOH associated Cardiomyopathy, Obesity, HTN, Former tobacco use, recently discharged 07/28/23 following admission for acute EtOH withdrawal treatment with at that time discussions about cyclical behavior of repeat presentations for alcohol withdrawal treatment but no effort to continue following his discharge who unfortunately again with last drink early AM with onset of mild withdrawal symptoms including nausea without emesis, mild tremors, restlessness prompting ED evaluation. Work-up in the ED included T95.7, heart rate 79, BP 91/71, respiratory rate 22, 100% on room air, CBC with WBC 6.7, hemoglobin 13.4, MCV 103.2, platelet 180 with lymphopenia, BMP with glucose 108, urine drug screen with positive barbiturate, ethyl alcohol less than 3. In the ED patient administered Ativan 2 mg IV x1. In the ED discussed patient serial presentation and discharge with immediate return to alcohol intake with strong recommendation that he would benefit from a more long-term situation at discharge and he states that he is amenable. Noted concern at last discharge that patient would benefit from an alternate setting. [facility] Medical History Alcohol abuse Alcohol abuse with physiological dependence Alcoholic cardiomyopathy Alcoholism Anxiety Anxiety and depression Atrial fibrillation Atrial flutter, paroxysmal Blood pressure elevated without history of HTN Elevated liver enzymes Former tobacco use History of acute alcoholic hepatitis HTN (hypertension) Hyperlipidemia Left atrial enlargement Obesity PAF (paroxysmal atrial fibrillation) Panic disorder Home Medications aspirin 81 mg chewable tablet 81 mg PO BREAKFAST heart health #0 tabs 05/15/23 [Rx Last Taken Unknown] diltiazem HCl 240 mg capsule,extended release 24 hr 240 mg PO DAILY heart #30 caps 06/06/23 [Rx Last Taken Unknown] metoprolol tartrate 100 mg tablet 100 mg PO BID blood pressure #60 tabs 06/06/23 [Rx Last Taken Unknown] multivitamin 1 tab PO DAILY SUPPLEMENT #30 tabs 07/28/23 [Rx Last Taken Unknown] atorvastatin 40 mg tablet 40 mg PO DAILY CHOL 08/18/23 [History Last Taken Unknown] disulfiram 250 mg tablet 250 mg PO DAILY UNKNOWN 08/18/23 [History Last Taken Unknown] naltrexone 50 mg tablet 50 mg PO Q24H SEE PCP 08/18/23 [History Last Taken Unknown] Allergy/AdvReac Type Severity Reaction Status Date / Time No Known Allergies Allergy Verified 07/25/23 08:24 Family History Mother CVA (cerebral vascular accident) Father Cancer lung cancer Surgical History Hx of cholecystectomy Social History household members: none housing: apartment Smoking Status: Former smoker alcohol intake: current alcohol intake frequency: 3 or more drinks per day details: 24-12 ounce beers daily substance use type: does not use ROS ROS Narrative Admission Review of Systems: CONSTITUTIONAL: No weight loss, fever, chills, + weakness or fatigue. HEENT: Eyes: No visual loss, blurred vision, double vision or yellow sclerae. Ears, Nose, Throat: No hearing loss, sneezing, congestion, runny nose or sore throat. SKIN: No rash or itching, lesions, wounds. CARDIOVASCULAR: No chest pain, chest pressure or chest discomfort, palpitations, edema, orthopnea, syncopal events. RESPIRATORY: No shortness of breath, cough or sputum, wheezing, hemoptysis. GASTROINTESTINAL: + anorexia, nausea without emesis. No abdominal pain, diarrhea, melena, BRBPR. GENITOURINARY: No dysuria, frequency, urgency or retention. NEUROLOGICAL: + Reports mild tremors. No headache, dizziness, syncope, paralysis, ataxia, numbness or tingling in the extremities, focal weakness, change in bowel or bladder control, seizure. MUSCULOSKELETAL: + muscle, back pain, joint pain or stiffness. HEMATOLOGIC: + anemia, history easy bleeding or bruising. LYMPHATICS: No enlarged nodes. No history of splenectomy. PSYCHIATRIC: + history of depression or anxiety/panic disorder. ENDOCRINOLOGIC: No reports of sweating, cold or heat intolerance. No polyuria or polydipsia. ALLERGIES: No history of asthma, hives, eczema or rhinitis. Vital Signs Vital Signs Vital Signs: 08/18/23 10:35 Temperature 95.7 F L Temperature Source Temporal Pulse Rate 79 Respiratory Rate 22 H Blood Pressure 91/71 Blood Pressure Mean 77 Pulse Ox 100 Physical Exam Narrative Physical Examination: General: Awake, alert, oriented x 3 and cooperative, laying on his side in the ED bed, visibly ill-appearing, mildly tremulous, complaints of nausea. Skin: Normal color, decreased turgor, no icterus, no cyanosis except for various staged ecchymoses and abrasions. HEENT: AT/NC, EOMI, PERRLA, dry MM, no carotid bruits or JVD noted. Lungs: CTA bilaterally, moderate effort, mild decrease BL bases, no rales, ronchi or wheezing. Heart: Mildly tachycardic with regular rhythm; no gallop, rub audible. Abdomen: Soft, obese, NTTP, hyperactive BS, difficult to appreciate distention and HSM given habitus. Extremities: No cyanosis, clubbing, or edema. Neurological: Patient awake, alert, oriented as noted, cognitive function intact; pupils equally reactive to light and accommodation, cranial nerves grossly normal, moving all 4 extremities, no focal deficits, strength moderately global decrease secondary to acute presentation, patient mildly tremulous, restless, anxious, reports persistent nausea. Psychiatric: Affect appears fatigued, reports nausea, ill-appearing, no acute evidence of depressive or anxiety feelings but does have underlying significant history in addition to panic disorder. Results Lab / Micro Data 08/18/23 12:20 08/18/23 12:20 Labs: Laboratory Results - last 24 hr 08/18/23 12:05: Urine Opiates Screen NEGATIVE, Urine Methadone Screen NEGATIVE, Ur Barbiturates Screen POSITIVE H, Ur Phencyclidine Scrn NEGATIVE, Ur Amphetamines Screen NEGATIVE, MDMA (Ecstasy) Screen NEGATIVE, U Benzodiazepines Scrn NEGATIVE, Urine Cocaine Screen NEGATIVE, U Cannabinoids Screen NEGATIVE, Ur Drug Screen Comment 08/18/23 12:20: WBC 6.7, RBC 3.74 L, Hgb 13.4, Hct 38.6 L, MCV 103.2 H, MCH 35.8 H, MCHC 34.7, RDW Std Deviation 54.3 H, RDW Coeff of Pati 14.2, Plt Count 180, MPV 10.1, Immature Gran % (Auto) 0.500, Neut % (Auto) 76.2 H, Lymph % (Auto) 7.5 L, [place] % (Auto) 14.9 H, Eos % (Auto) 0.3, Baso % (Auto) 0.6, Absolute Neuts (auto) 5.1, Absolute Lymphs (auto) 0.50 L, Nucleated RBC % 0, Differential Comment COMMENT, Sodium 138, Potassium 4.1, Chloride 105, Carbon Dioxide 24.0, Anion Gap 9, BUN 5 L, Creatinine 0.77, Est GFR (MDRD) Af Amer 127, Est GFR (MDRD) Non-Af 105, BUN/Creatinine Ratio 6.5 L, Glucose 108 H, Calcium 8.6, Ethyl Alcohol < 3.0 Assessment & Plan Assessment/Plan (1) Alcohol withdrawal: PLAN: Plan The patient is a 72 y/o M w/ PMHx: EtOH abuse, PAF, Anxiety and Depression, EtOH associated Cardiomyopathy, Obesity, HTN, Former tobacco use, recently discharged 07/28/23 following admission for acute EtOH withdrawal treatment with at that time discussions about cyclical behavior of repeat presentations for alcohol withdrawal treatment but no effort to continue following his discharge who unfortunately again with last drink early AM with onset of mild withdrawal symptoms prompting ED evaluation. #1. Acute EtOH Withdrawal with Acute alcoholic hepatitis and prior history DVT: Initial labs including CBC, BMP, alcohol level, UDS, requesting hepatic profile also. Will admit to medical surgical floor, will initiate and continue on protocol with taper course of Phenobarbital, as needed gabapentin, Catapres, Bentyl, Vistaril, antiemetics, Tylenol as needed for pain. Will consult Case management for assistance for transition to next level of rehabilitation care. Mag, phos pending. Maintain on CIWA protocol concurrently. Given patient serial presentation and last comments by Dr. Carl will need to have CM and substance abuse team weigh in as to options for this patient to avoid serial presentations for treatment. He would benefit most by longer term program. #2. Alcoholic associated cardiomyopathy: 05/14/2023 echocardiogram with EF 55%, moderately enlarged LA and RA, mild MVI, mild to moderate TVI, RVSP 32 mmHg with no change since prior study 03/2022. Maintain on aspirin, metoprolol. Prior had been on statin, not currently listed, clarifying. #3. PAF: Patient not chronically anticoagulated secondary to significant fall risk, maintain on aspirin, continue metoprolol and diltiazem home regimen. #4. Hypertension: Continue home regimen including diltiazem, metoprolol, PRN hydralazine. #5. Hyperlipidemia: Prior had been on statin, not currently listed, clarifying. #6. Obesity: Weight loss and lifestyle changes encouraged. #7. Former tobacco use: Encourage continued tobacco cessation. #8. Anxiety and depression: Patient not on any chronic regimen, encourage continued outpatient follow-up and counseling as well as medications if appropriate as likely contributing to his recurrent presentations and EtOH abuse. #9. DVT prophylaxis: Low risk for current presentation admission, encourage ambulation. Charges/Coding Visit Charges Inpatient E&M: 57435 Init Hosp L2
[2023-08-18 14:36] LABS: AST(SGOT) 83 U/L (15-37); Alanine Aminotransfer ALT/SGPT 95 U/L (16-61); Alkaline Phosphatase 159 U/L (45-117); Bilirubin, Direct 0.46 mg/dL (0.00-0.30); Globulin 3.9 g/dL (2.2-4.2); Magnesium 1.5 mg/dL (1.6-2.6); Phosphorus 2.7 mg/dL (2.5-4.9); Protein, Total 6.9 g/dL (6.4-8.2)
--- NOTE | 2023-08-18 14:53 | EDS_ITS ---
HPI History of Present Illness Chief Complaint: Substance Abuse Informant: patient Narrative Narrative: Presents to the ED requesting alcohol detox. Reports relapse a week ago. Drinks 8 tall beers a day reporting last drink this morning. He has morning tremors. Denies any withdrawal seizures. He was in the hospital he reports a few weeks ago and it helped. Denies suicidal homicidal ideations. Denies recreational drug use. Reports does get tremors. Feeling tremors currently. Reports was treated with phenobarbital in the hospital. Prior similar symptoms: Yes PFSH PFSH Medical History Alcohol abuse Alcohol abuse with physiological dependence Alcoholic cardiomyopathy Alcoholism Anxiety Anxiety and depression Atrial fibrillation Atrial flutter, paroxysmal Blood pressure elevated without history of HTN Elevated liver enzymes Former tobacco use History of acute alcoholic hepatitis HTN (hypertension) Hyperlipidemia Left atrial enlargement Obesity PAF (paroxysmal atrial fibrillation) Panic disorder Home Medications aspirin 81 mg chewable tablet 81 mg PO BREAKFAST heart health #0 tabs 05/15/23 [Rx Last Taken Unknown] diltiazem HCl 240 mg capsule,extended release 24 hr 240 mg PO DAILY heart #30 caps 06/06/23 [Rx Last Taken Unknown] metoprolol tartrate 100 mg tablet 100 mg PO BID blood pressure #60 tabs 06/06/23 [Rx Last Taken Unknown] multivitamin 1 tab PO DAILY #30 tabs 07/28/23 [Rx Last Taken Unknown] Allergy/AdvReac Type Severity Reaction Status Date / Time No Known Allergies Allergy Verified 07/25/23 08:24 Family History Mother CVA (cerebral vascular accident) Father Cancer lung cancer Surgical History Hx of cholecystectomy Social History household members: none housing: apartment Smoking Status: Former smoker alcohol intake: current alcohol intake frequency: 3 or more drinks per day details: 24-12 ounce beers daily substance use type: does not use ROS ROS ED Constitutional Constitutional ED: Denies chills, fever(s) or sweats Eyes Eyes: Denies change in vision ENT ENT ED: Denies dysphagia or sore throat Cardiovascular Cardiovascular: Denies chest pain, leg edema, palpitations or racing heartbeat Respiratory/Chest Respiratory/Chest: Denies cough, dyspnea or dyspnea on exertion Gastrointestinal Gastrointestinal: Denies abdominal pain, diarrhea, nausea or vomiting Genitourinary Genitourinary ED: Denies dysuria, hematuria or urinary frequency Musculoskeletal Musculoskeletal: Denies back pain, extremity pain or neck pain Integumentary Denies rash or wounds Neurologic Neurologic: Reports other Details: Tremors ; Denies headache(s), paresthesias or weakness EXAM Physical Exam Const Vital Signs: 08/18/23 10:35 Temperature 95.7 F L Temperature Source Temporal Pulse Rate 79 Respiratory Rate 22 H Blood Pressure 91/71 Blood Pressure Mean 77 Pulse Ox 100 Positive well nourished and well developed Constitutional Narrative: RecentNontoxic no visualized tremors no. General Appearance ED: well developed and NAD HEENT Reports moist mucous membranes normocephalic and atraumatic Eyes PERRL, EOMs intact bilaterally and conjunctivae normal General Eye ED: Yes normal appearance of both eyes Neck no lymphadenopathy and supple General: Negative for tenderness Chest Wall Chest: Negative for tenderness Resp normal respiratory effort and normal air movement Effort and Inspection: symmetric chest movement; Negative for respiratory distress Cardio regular rate, regular rhythm and no murmurs Peripheral Pulses: pulses 2+ throughout GI normal to inspection, nondistended, normoactive bowel sounds and non-tender Palpation: Negative for guarding or rebound tenderness present Back/Spine no CVA tenderness and no thoracic nor lumbar tenderness Extremity normal to inspection General Extremety ED: Negative for edema or tenderness General Extremity: Negative for edema Neuro oriented x3 and no sensory deficits noted Sensorium / Orientation: awake and alert Skin no rashes or lesions noted and no wounds MDM MDM MDM Narrative Medical decision making narrative: Interventions / MDM: Differential diagnosis: Alcohol dependence, alcohol withdrawal Diagnosis considered but do not suspect: N/A My EKG interpretation: N/A Imaging independently reviewed and interpreted by myself: N/A External documents reviewed: N/A Test considered but not ordered:N/A ED course: Vital stable nontoxic. No active tremors on exam. Medical clearance labs initially ordered. Initial reported he drank alcohol yesterday morning over 24 hours tremors Ativan was ordered however held after discussion with the patient that he drink this morning. He is not tachycardic. Results with alcohol negative. Toxicology notes barbiturates. Vitals remained stable. I discussed with hospitalist Dr. Carlton for admission. Re-evaluation: stable Disposition discussed with patient/family/significant other: Patient Case discussed with consulting clinician: Hospitalist This note was generated with [employer] dictation software. It may contain incorrect words, spelling, and punctuation that were not noted in checking the note before signing. Lab Data Attestation: I reviewed the patient's lab results. Labs: Laboratory Results - last 24 hr 08/18/23 08/18/23 08/18/23 12:05 12:20 12:20 WBC 6.7 RBC 3.74 L Hgb 13.4 Hct 38.6 L MCV 103.2 H MCH 35.8 H MCHC 34.7 RDW Std Deviation 54.3 H RDW Coeff of Pati 14.2 Plt Count 180 MPV 10.1 Immature Gran % (Auto) 0.500 Neut % (Auto) 76.2 H Lymph % (Auto) 7.5 L [place] % (Auto) 14.9 H Eos % (Auto) 0.3 Baso % (Auto) 0.6 Absolute Neuts (auto) 5.1 Absolute Lymphs (auto) 0.50 L Nucleated RBC % 0 Differential Comment COMMENT Sodium 138 Potassium 4.1 Chloride 105 Carbon Dioxide 24.0 Anion Gap 9 BUN 5 L Creatinine 0.77 Est GFR (MDRD) Af Amer 127 Est GFR (MDRD) Non-Af 105 BUN/Creatinine Ratio 6.5 L Glucose 108 H Calcium 8.6 Phosphorus 2.7 Cancelled Magnesium 1.5 L Total Bilirubin Direct Bilirubin AST ALT Alkaline Phosphatase Total Protein Albumin Globulin Urine Opiates Screen NEGATIVE Urine Methadone Screen NEGATIVE Ur Barbiturates Screen POSITIVE H Ur Phencyclidine Scrn NEGATIVE Ur Amphetamines Screen NEGATIVE MDMA (Ecstasy) Screen NEGATIVE U Benzodiazepines Scrn NEGATIVE Urine Cocaine Screen NEGATIVE U Cannabinoids Screen NEGATIVE Ur Drug Screen Comment Ethyl Alcohol 08/18/23 12:20 WBC RBC Hgb Hct MCV MCH MCHC RDW Std Deviation RDW Coeff of Pati Plt Count MPV Immature Gran % (Auto) Neut % (Auto) Lymph % (Auto) [place] % (Auto) Eos % (Auto) Baso % (Auto) Absolute Neuts (auto) Absolute Lymphs (auto) Nucleated RBC % Differential Comment Sodium Potassium Chloride Carbon Dioxide Anion Gap BUN Creatinine Est GFR (MDRD) Af Amer Est GFR (MDRD) Non-Af BUN/Creatinine Ratio Glucose Calcium Phosphorus Magnesium Cancelled Total Bilirubin 1.00 Direct Bilirubin 0.46 H AST 83 H ALT 95 H Alkaline Phosphatase 159 H Total Protein 6.9 Albumin 3.0 L Globulin 3.9 Urine Opiates Screen Urine Methadone Screen Ur Barbiturates Screen Ur Phencyclidine Scrn Ur Amphetamines Screen MDMA (Ecstasy) Screen U Benzodiazepines Scrn Urine Cocaine Screen U Cannabinoids Screen Ur Drug Screen Comment Ethyl Alcohol < 3.0 Discharge Plan Triage Chief Complaint: Substance Abuse ED Provider: Jan Ag Dx/Rx/DC Orders Clinical Impression: Alcohol dependence, Alcohol withdrawal, Tremors of nervous system Primary Care Provider: Faheem Montalvo Disposition Disposition: Acute Care Hospital [facility]
[2023-08-18 15:43] VITALS: BMI 31.4
[2023-08-18] MEDS: Magnesium Sulfate 2 GM in Dextrose 5%-Water (100mL Bag) 100 ML IV (16:06)
[2023-08-18] MEDS: Phenobarbital 32.4 MG Tablet PO ×3 (16:06→23:08)
[2023-08-18] MEDS: LORazepam 1 MG Tablet 2 MG PO (16:07)
[2023-08-18 16:30] VITALS: BP 125/76; PULSE 60; RESP 16; TEMP 37.4; O2SAT 93
[2023-08-18] MEDS: 0.9% Saline Lock 10 ML Syringe IV ×2 (17:56→20:39)
[2023-08-18] MEDS: Gabapentin 300 MG Capsule PO (17:59)
[2023-08-18 18:00] VITALS: BP 113/68; PULSE 73; RESP 15; TEMP 36.6; O2SAT 97
[2023-08-18 20:18] VITALS: BP 110/72; PULSE 116; RESP 20; TEMP 37; O2SAT 96
[2023-08-18] MEDS: traZODone 100 MG Tablet PO (20:39)
[2023-08-18 22:00] VITALS: BP 108/73; PULSE 81; RESP 18; TEMP 37.1
[2023-08-18 22:38] VITALS: BP 95/68; PULSE 114
[2023-08-18] MEDS: Metoprolol Tartrate 100 MG Tablet PO (22:38)
[2023-08-19] VITALS (11 sets, daily range): BP systolic 112–129; BP diastolic 56–87; PULSE 61–97; RESP 16–18; TEMP 36.4–36.5; O2SAT 94–98
[2023-08-19] MEDS: Phenobarbital 32.4 MG Tablet PO ×6 (03:40→23:52)
[2023-08-19 07:28] LABS: Magnesium 2.3 mg/dL (1.6-2.6)
[2023-08-19] MEDS: Folic Acid 1 MG Tablet PO (09:46)
[2023-08-19] MEDS: Multivitamins,Therapeutic Tablet 1 TABLET PO (09:46)
[2023-08-19] MEDS: Aspirin 81 MG TAB.CHEW PO (09:46)
[2023-08-19] MEDS: Metoprolol Tartrate 100 MG Tablet PO ×2 (09:47→21:14)
[2023-08-19] MEDS: dilTIAZem CD 240 MG Capsule PO (09:47)
[2023-08-19] MEDS: Thiamine Hydrochloride 100 MG Tablet PO (09:47)
--- NOTE | 2023-08-19 13:31 | PN_ITS ---
Subjective Subjective Patient seen and examined. He had no complaints. He denies any feelings of withdrawal and denies any palpitations, dizziness, tremors, nausea vomiting or any other symptoms. Review of systems otherwise negative. Patient has had multiple admissions for acute alcohol withdrawal. Objective Data Objective Data Vital Signs: Vital Signs Temp Pulse Resp BP Pulse Ox O2 Del Method 97.5 F L 92 17 120/80 94 Room Air 08/19/23 12:19 08/19/23 12:19 08/19/23 12:19 08/19/23 12:17 08/19/23 12:17 08/19/23 12:17 Oxygen Delivery Method Room Air Weight: 207 lb Body Mass Index (BMI) 31.4 Intake & Output: Intake and Output for Last 24 Hours 08/17/23 08/18/23 08/19/23 23:59 23:59 23:59 Intake Total 104 / 104 Balance 104 / 104 Lab / Micro Data 08/18/23 12:20 08/18/23 12:20 Labs: Laboratory Results - last 24 hr 08/18/23 12:20: Phosphorus 2.7 08/18/23 12:20: Phosphorus Cancelled, Magnesium 1.5 L 08/18/23 12:20: Magnesium Cancelled, Total Bilirubin 1.00, Direct Bilirubin 0.46 H, AST 83 H, ALT 95 H, Alkaline Phosphatase 159 H, Total Protein 6.9, Albumin 3.0 L, Globulin 3.9 08/19/23 05:55: Magnesium 2.3 Physical Exam Const oriented x3 and no apparent distress General Appearance: cooperative and well developed HEENT head/scalp atraumatic, moist oral mucous membranes and oropharynx normal Eyes PERRL and EOMs intact bilaterally Neck no lymphadenopathy and supple Lymph Lymphatic: no lymphadenopathy noted Resp normal respiratory effort, normal air movement and clear to auscultation bilaterally Cardio regular rate, regular rhythm, S1 normal heart sound, S2 normal heart sound and no murmurs GI normal to inspection, nondistended, normoactive bowel sounds, soft to palpation, non-tender and non-distended Extremity normal capillary refill, no clubbing, cyanosis or edema and no calf tenderness General Extremity: no tenderness to palpation of joints or extremities Skin General Skin Exam: no breakdown Neuro CN's II-XII intact bilaterally, no focal motor deficits, no sensory deficits noted and deep tendon reflexes 2+ bilaterally Motor Exam: strength 5/5 throughout and general weakness Psych thought process normal and cooperative Appearance: appropriate Assessment & Plan Assessment/Plan (1) Alcohol withdrawal: PLAN: Plan #Acute alcohol withdrawal * This is the patient's third admission over the last month for acute alcohol withdrawal. * On alcohol withdrawal protocol with phenobarbital. * On thiamine, folic acid and Multivite. Monitor CIWA score. 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 On aspirin and statin as well as metoprolol. #Paroxysmal A-fib: On metoprolol and Cardizem. Not anticoagulated due to risk of falls. #Depression: On Abilify and Cymbalta. #Hypertension: On metoprolol and amlodipine. #Transaminitis: Likely due to chronic alcohol abuse. Will monitor. DVT prophylaxis: Low risk. Encouraged to ambulate. Charges/Coding Visit Charges Inpatient E&M: 66451 Subs Hosp L2
[2023-08-19] MEDS: Dicyclomine 10 MG Capsule 20 MG PO (23:52)
[2023-08-19] MEDS: traZODone 100 MG Tablet PO (23:52)
[2023-08-19] MEDS: Gabapentin 300 MG Capsule PO (23:52)
[2023-08-20] VITALS (8 sets, daily range): BP systolic 112–142; BP diastolic 73–99; PULSE 84–92; RESP 16–18; TEMP 36.3–36.8; O2SAT 92–99
[2023-08-20] MEDS: Phenobarbital 32.4 MG Tablet PO ×5 (02:58→19:56)
[2023-08-20] MEDS: hydrOXYzine PAM 25 MG Capsule 50 MG PO (03:00)
[2023-08-20] MEDS: Ondansetron 8 MG Tablet PO ×2 (03:00→20:10)
[2023-08-20] MEDS: Multivitamins,Therapeutic Tablet 1 TABLET PO (07:37)
[2023-08-20] MEDS: Thiamine Hydrochloride 100 MG Tablet PO (07:37)
[2023-08-20] MEDS: Folic Acid 1 MG Tablet PO (07:37)
[2023-08-20] MEDS: Aspirin 81 MG TAB.CHEW PO (07:38)
[2023-08-20] MEDS: Menthol/Lanolin/Calamine/Znox 113 GM Tube 1 APPLIC TOPICAL (07:59)
[2023-08-20] MEDS: dilTIAZem CD 240 MG Capsule PO (07:59)
[2023-08-20] MEDS: Metoprolol Tartrate 100 MG Tablet PO ×2 (08:00→20:29)
--- NOTE | 2023-08-20 11:15 | PN_ITS ---
Subjective Subjective Patient seen and examined. He had no active complaints today. REview of systems is otherwise negative. Objective Data Objective Data Vital Signs: Vital Signs Temp Pulse Resp BP Pulse Ox O2 Del Method 97.6 F L 88 18 124/99 H 92 Room Air 08/20/23 08:12 08/20/23 08:12 08/20/23 08:12 08/20/23 08:12 08/20/23 09:26 08/20/23 09:26 Oxygen Delivery Method Room Air Weight: 207 lb 0.013 oz Body Mass Index (BMI) 31.4 Intake & Output: Intake and Output for Last 24 Hours 08/18/23 08/19/23 08/20/23 23:59 23:59 23:59 Intake Total 104 / 104 500 / 500 Balance 104 / 104 500 / 500 Lab / Micro Data 08/18/23 12:20 08/18/23 12:20 Physical Exam Const alert, oriented x3 and no apparent distress General Appearance: cooperative and well developed HEENT head/scalp atraumatic, moist oral mucous membranes and oropharynx normal Eyes PERRL and EOMs intact bilaterally Neck no lymphadenopathy and supple Lymph Lymphatic: no lymphadenopathy noted Resp normal respiratory effort, normal air movement and clear to auscultation bilaterally Cardio regular rate, regular rhythm, S1 normal heart sound, S2 normal heart sound and no murmurs GI normal to inspection, nondistended, normoactive bowel sounds, soft to palpation, non-tender and non-distended Extremity normal capillary refill, no clubbing, cyanosis or edema and no calf tenderness General Extremity: no tenderness to palpation of joints or extremities Skin General Skin Exam: no breakdown Neuro CN's II-XII intact bilaterally, no focal motor deficits, no sensory deficits noted and deep tendon reflexes 2+ bilaterally Motor Exam: strength 5/5 throughout and general weakness Psych thought process normal and cooperative Appearance: appropriate Assessment & Plan Assessment/Plan (1) Alcohol withdrawal: PLAN: Plan #Acute alcohol withdrawal * This is the patient's third admission over the last month for acute alcohol withdrawal. * On alcohol withdrawal protocol with phenobarbital. * On thiamine, folic acid and Multivite. * Monitor CIWA score. 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 On aspirin and statin as well as metoprolol. #Paroxysmal A-fib: On metoprolol and Cardizem. Not anticoagulated due to risk of falls. #Depression: On Abilify and Cymbalta. #Hypertension: On metoprolol and amlodipine. #Transaminitis: Likely due to chronic alcohol abuse. Will monitor. DVT prophylaxis: Low risk. Encouraged to ambulate. Disposition: DC tomorrow. Charges/Coding Visit Charges Inpatient E&M: 32263 Subs Hosp L2
--- NOTE | 2023-08-20 11:39 | CASEMGMT ---
Social Work SW spoke with pt [facility] Biomedical Repair Technician Lydia ([phone]). Discussed options to help pt while in the community. This SW suggested pt be assigned a Biomedical Repair Technician that can do home visits, assist pt with keeping appointments and transportation to these appointments. Lydia states she can do home visits, but pt has declined her to visit him at home. Lydia states she will reach out to the [facility] Department to inquire about their availability to provide case management services in the community. WALT met with pt in room. Pt stating he is at [facility] and unable to state why. Pt is attempting to eat lunch with a straw. SW encouraged pt to use silverware that is sitting beside food and pt declined. Pt verbalizing frustration but unable to specify what he is frustrated about. SW not able to complete Social Determinant of Health assessment at this time due to cognitive impairment. PRISCILLA Yin
[2023-08-20] MEDS: 0.9% Saline Lock 10 ML Syringe IV (12:55)
--- NOTE | 2023-08-20 16:27 | CASEMGMT ---
Social Work Return call from Kenan Freeman CM. Lydia states the [facility] department recommended [facility]. Lydia states she has called [facility] and they are interested in more information on pt. WALT will update Addiction Therapist about this recommendation from Kenan MAGALLANES. Behavioral Health did not offer community case management services. PRISCILLA Yin
[2023-08-20] MEDS: Gabapentin 300 MG Capsule PO (16:42)
[2023-08-20] MEDS: Dicyclomine 10 MG Capsule 20 MG PO (20:09)
[2023-08-20] MEDS: Acetaminophen 325 MG Tablet 650 MG PO (20:10)
[2023-08-21] MEDS: Phenobarbital 32.4 MG Tablet PO ×5 (00:33→22:59)
[2023-08-21] MEDS: Menthol/Lanolin/Calamine/Znox 113 GM Tube 1 APPLIC TOPICAL ×3 (00:34→23:00)
[2023-08-21 04:01] VITALS: BP 125/98; PULSE 88; RESP 18; TEMP 36.4; O2SAT 95
[2023-08-21] MEDS: Gabapentin 300 MG Capsule PO ×2 (04:57→17:17)
[2023-08-21 08:24] VITALS: BP 109/84; PULSE 78; RESP 18; TEMP 36.1; O2SAT 99
[2023-08-21 09:54] VITALS: PULSE 78
[2023-08-21] MEDS: Metoprolol Tartrate 100 MG Tablet PO ×2 (09:54→22:57)
[2023-08-21] MEDS: Multivitamins,Therapeutic Tablet 1 TABLET PO (09:54)
[2023-08-21] MEDS: Thiamine Hydrochloride 100 MG Tablet PO (09:55)
[2023-08-21] MEDS: Folic Acid 1 MG Tablet PO (09:55)
[2023-08-21] MEDS: Aspirin 81 MG TAB.CHEW PO (09:55)
[2023-08-21] MEDS: dilTIAZem CD 240 MG Capsule PO (09:55)
--- NOTE | 2023-08-21 11:00 | CASEMGMT ---
Social Work WALT spoke with Kenan Freeman Oracle Database Developer. Lydia states she spoke with [facility] and they would consider accepting pt. Lydia requesting this route be explored for pt. [facility] contact information obtained and WALT discussed with Addiction Therapist who will pursue this option. Physician lawrence. PRISCILLA Yin
--- NOTE | 2023-08-21 12:44 | ADDICTION ---
This proposal manager writer met with PT to conduct ASAM, MSE, AUDIT, DUDIT assessments. PT A+Ox2 and participated actively. All assessments completed and placed in PT's chart. PT is currently in and out of confusion. Will see discuss treatment options when he is less confused.
--- NOTE | 2023-08-21 12:59 | PCM.PROGNOTE ---
Subjective Subjective Patient seen and examined. He complains of dizziness and being unsteady on his feet. He has no other complaints. Review of systems otherwise negative. Objective Data Objective Data Vital Signs: Vital Signs Temp Pulse Resp BP Pulse Ox O2 Del Method 97 F L 78 18 109/84 H 99 Room Air 08/21/23 08:24 08/21/23 09:54 08/21/23 08:24 08/21/23 08:24 08/21/23 08:24 08/21/23 08:40 Oxygen Delivery Method Room Air Weight: 207 lb 0.013 oz Body Mass Index (BMI) 31.4 Intake & Output: Intake and Output for Last 24 Hours 08/19/23 08/20/23 08/21/23 23:59 23:59 23:59 Intake Total 740 / 1040 500 / 500 Output Total 200 / 200 Balance 540 / 840 500 / 500 Lab / Micro Data 08/18/23 12:20 08/18/23 12:20 Physical Exam Const alert, oriented x3 and no apparent distress Constitutional Narrative: weak and frail General Appearance: cooperative and well developed HEENT normocephalic, head/scalp atraumatic, moist oral mucous membranes and oropharynx normal Eyes PERRL and EOMs intact bilaterally Neck no lymphadenopathy and supple Lymph Lymphatic: no lymphadenopathy noted Resp normal respiratory effort, normal air movement and clear to auscultation bilaterally Cardio regular rate, regular rhythm, S1 normal heart sound, S2 normal heart sound and no murmurs GI normal to inspection, nondistended, normoactive bowel sounds, soft to palpation, non-tender and non-distended Extremity normal capillary refill, no clubbing, cyanosis or edema and no calf tenderness General Extremity: no tenderness to palpation of joints or extremities Skin General Skin Exam: no breakdown Neuro CN's II-XII intact bilaterally, no focal motor deficits, no sensory deficits noted and deep tendon reflexes 2+ bilaterally Neuro Narrative: unsteady on his feet. Weak and frail Motor Exam: strength 5/5 throughout and general weakness Psych thought process normal and cooperative Appearance: appropriate Assessment & Plan Assessment/Plan (1) Alcohol withdrawal: PLAN: Plan #Acute alcohol withdrawal This is the patient's third admission over the last month for acute alcohol withdrawal. On alcohol withdrawal protocol with phenobarbital. On thiamine, folic acid and Multivite. Monitor CIWA score. 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 On aspirin and statin as well as metoprolol. #debility and weakness Patient is quite frail and weak and unsteady on his feet. He will benefit from placement. 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 Case management consulted. PT OT on board. For precautions. #Paroxysmal A-fib: On metoprolol and Cardizem. Not anticoagulated due to risk of falls. #Depression: On Abilify and Cymbalta. #Hypertension: On metoprolol and amlodipine. #Transaminitis: Likely due to chronic alcohol abuse. Will monitor. DVT prophylaxis: Low risk. Encouraged to ambulate. Disposition: will benefit from placement due to his weakness and frailty. PT/OT consulted. Case management on board to help facilitate placement Charges/Coding Visit Charges Inpatient E&M: 43010 Subs Hosp L2
--- NOTE | 2023-08-21 13:29 | ADDICTION ---
Pt has signed a release for [facility], a residential treatment center in [place], [place]. I have faxed all of the necessary information to them and am awaiting on a return call. Pt, currently, has agreed to go to this facility.
[2023-08-21 17:15] VITALS: BP 147/96; PULSE 76; RESP 16; TEMP 36.4; O2SAT 98
[2023-08-21 22:57] VITALS: BP 120/88; PULSE 74
[2023-08-21 23:00] VITALS: BP 120/88; PULSE 68; RESP 16; TEMP 35.8; O2SAT 95
[2023-08-22 04:48] VITALS: BP 132/93; PULSE 88; RESP 16; TEMP 36.2; O2SAT 97
[2023-08-22] MEDS: Phenobarbital 32.4 MG Tablet PO ×3 (04:51→17:17)
[2023-08-22] MEDS: Gabapentin 300 MG Capsule PO ×2 (05:10→20:47)
[2023-08-22 07:53] VITALS: BP 128/79; PULSE 82; RESP 18; TEMP 36.4; O2SAT 96
[2023-08-22] MEDS: Multivitamins,Therapeutic Tablet 1 TABLET PO (08:07)
[2023-08-22] MEDS: Folic Acid 1 MG Tablet PO (08:07)
[2023-08-22 08:08] VITALS: PULSE 82
[2023-08-22] MEDS: Thiamine Hydrochloride 100 MG Tablet PO (08:08)
[2023-08-22] MEDS: dilTIAZem CD 240 MG Capsule PO (08:08)
[2023-08-22] MEDS: Aspirin 81 MG TAB.CHEW PO (08:08)
[2023-08-22] MEDS: Metoprolol Tartrate 100 MG Tablet PO ×2 (08:08→20:45)
[2023-08-22] MEDS: hydrOXYzine PAM 25 MG Capsule 50 MG PO ×2 (08:11→17:17)
--- NOTE | 2023-08-22 12:01 | PN_ITS ---
Subjective Subjective Patient seen and examined. HE was lying comfortably in bed. He still does have unsteadiness with walking. He is now awaiting placement. Review of systems is otherwise negative. Objective Data Objective Data Vital Signs: Vital Signs Temp Pulse Resp BP Pulse Ox O2 Del Method 97.5 F L 82 18 128/79 H 96 Room Air 08/22/23 07:53 08/22/23 08:08 08/22/23 07:53 08/22/23 07:53 08/22/23 07:53 08/22/23 07:53 Oxygen Delivery Method Room Air Weight: 207 lb 0.013 oz Body Mass Index (BMI) 31.4 Intake & Output: Intake and Output for Last 24 Hours 08/20/23 08/21/23 08/22/23 23:59 23:59 23:59 Intake Total 740 / 1040 1050 / 1250 200 / 200 Output Total 200 / 200 Balance 540 / 840 1050 / 1250 200 / 200 Lab / Micro Data 08/18/23 12:20 08/18/23 12:20 Physical Exam Const alert, oriented x3 and no apparent distress Constitutional Narrative: weak and frail General Appearance: cooperative and well developed HEENT normocephalic, head/scalp atraumatic, moist oral mucous membranes and oropharynx normal Eyes PERRL and EOMs intact bilaterally Neck no lymphadenopathy and supple Lymph Lymphatic: no lymphadenopathy noted Resp normal respiratory effort, normal air movement and clear to auscultation bilaterally Cardio regular rate, regular rhythm, S1 normal heart sound, S2 normal heart sound and no murmurs GI normal to inspection, nondistended, normoactive bowel sounds, soft to palpation, non-tender and non-distended Extremity normal capillary refill, no clubbing, cyanosis or edema and no calf tenderness General Extremity: no tenderness to palpation of joints or extremities Skin General Skin Exam: no breakdown Neuro CN's II-XII intact bilaterally, no focal motor deficits, no sensory deficits noted and deep tendon reflexes 2+ bilaterally Neuro Narrative: unsteady on his feet. Weak and frail Motor Exam: strength 5/5 throughout and general weakness Psych thought process normal and cooperative Appearance: appropriate Assessment & Plan Assessment/Plan (1) Alcohol withdrawal: PLAN: Plan #Acute alcohol withdrawal * This is the patient's third admission over the last month for acute alcohol withdrawal. * On alcohol withdrawal protocol with phenobarbital. * On thiamine, folic acid and Multivite. * Monitor CIWA score. * #Alcohol induced cardiomyopathy: * Has known EF of 55% with moderately enlarged left atrium and right atrium. On aspirin and statin as well as metoprolol. #debility and weakness * Patient is quite frail and weak and unsteady on his feet. He will benefit from placement. 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 * Case management consulted. PT OT on board. Fall precautions. #Paroxysmal A-fib: On metoprolol and Cardizem. Not anticoagulated due to risk of falls. #Depression: On Abilify and Cymbalta. #Hypertension: On metoprolol and amlodipine. #Transaminitis: Likely due to chronic alcohol abuse. Will monitor. DVT prophylaxis: Low risk. Encouraged to ambulate. Disposition: will benefit from placement due to his weakness and frailty. PT/OT consulted. Case management on board to help facilitate placement. Now awaiting placement Charges/Coding Visit Charges Inpatient E&M: 43049 Subs Hosp L2
[2023-08-22 14:07] VITALS: BP 103/67; PULSE 54; RESP 18; TEMP 36.5; O2SAT 94
[2023-08-22 20:41] VITALS: BP 131/88; PULSE 85; RESP 18; TEMP 36.5; O2SAT 96
[2023-08-22] MEDS: Menthol/Lanolin/Calamine/Znox 113 GM Tube 1 APPLIC TOPICAL (20:44)
[2023-08-22 20:45] VITALS: BP 131/88; PULSE 85
[2023-08-23] VITALS (8 sets, daily range): BP systolic 88–136; BP diastolic 55–83; PULSE 68–95; RESP 16–18; TEMP 36.2–36.8; O2SAT 93–100
[2023-08-23] MEDS: Gabapentin 300 MG Capsule PO ×2 (05:52→21:10)
[2023-08-23] MEDS: dilTIAZem CD 240 MG Capsule PO (07:43)
[2023-08-23] MEDS: Bisacodyl 10 MG Suppository RC (07:43)
[2023-08-23] MEDS: Folic Acid 1 MG Tablet PO (07:44)
[2023-08-23] MEDS: Aspirin 81 MG TAB.CHEW PO (07:44)
[2023-08-23] MEDS: Thiamine Hydrochloride 100 MG Tablet PO (07:44)
[2023-08-23] MEDS: Metoprolol Tartrate 100 MG Tablet PO ×2 (07:44→21:11)
[2023-08-23] MEDS: Menthol/Lanolin/Calamine/Znox 113 GM Tube 1 APPLIC TOPICAL ×2 (07:44→21:10)
[2023-08-23] MEDS: Multivitamins,Therapeutic Tablet 1 TABLET PO (07:44)
--- NOTE | 2023-08-23 09:48 | PCM.PROGNOTE ---
Subjective Subjective Patient seen and examined. He is saying he wants to go home today. He also complains of constipation and had an enema to help with bowel movement today. Review of systems is otherwise negative. Objective Data Objective Data Vital Signs: Vital Signs Temp Pulse Resp BP Pulse Ox O2 Del Method 97.7 F L 91 16 116/78 93 Room Air 08/23/23 07:48 08/23/23 07:48 08/23/23 07:48 08/23/23 07:48 08/23/23 07:48 08/23/23 07:48 Oxygen Delivery Method Room Air Weight: 207 lb 0.013 oz Body Mass Index (BMI) 31.4 Intake & Output: Intake and Output for Last 24 Hours 08/21/23 08/22/23 08/23/23 23:59 23:59 23:59 Intake Total 1050 / 1250 400 / 400 300 / 300 Balance 1050 / 1250 400 / 400 300 / 300 Lab / Micro Data 08/18/23 12:20 08/18/23 12:20 Physical Exam Const alert, oriented x3 and no apparent distress Constitutional Narrative: weak and frail General Appearance: cooperative and well developed HEENT normocephalic, head/scalp atraumatic, moist oral mucous membranes and oropharynx normal Eyes PERRL and EOMs intact bilaterally Neck no lymphadenopathy and supple Lymph Lymphatic: no lymphadenopathy noted Resp normal respiratory effort, normal air movement and clear to auscultation bilaterally Cardio regular rate, regular rhythm, S1 normal heart sound, S2 normal heart sound and no murmurs GI normal to inspection, nondistended, normoactive bowel sounds, soft to palpation, non-tender and non-distended Extremity normal capillary refill, no clubbing, cyanosis or edema and no calf tenderness General Extremity: no tenderness to palpation of joints or extremities Skin General Skin Exam: no breakdown Neuro CN's II-XII intact bilaterally, no sensory deficits noted and deep tendon reflexes 2+ bilaterally Neuro Narrative: unsteady on his feet. Weak and frail Motor Exam: strength 5/5 throughout and general weakness Psych thought process normal and cooperative Appearance: appropriate Assessment & Plan Assessment/Plan (1) Alcohol withdrawal: PLAN: Plan #Acute alcohol withdrawal Patient has had multiple admissions for acute alcohol withdrawal over the past few weeks. On alcohol withdrawal protocol with phenobarbital. On thiamine, folic acid and Multivite. Monitor CIWA score. 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 On aspirin and statin as well as metoprolol. #debility and weakness Patient is quite frail and weak and unsteady on his feet. He will benefit from placement. 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 Case management consulted. PT OT on board. Fall precautions. he is now asking to go home today; he is however still weak and needs assistance with ambulation. I dont think he is safe to go home. #Paroxysmal A-fib: On metoprolol and Cardizem. Not anticoagulated due to risk of falls. #Depression: On Abilify and Cymbalta. #Hypertension: On metoprolol and amlodipine. #Transaminitis: Likely due to chronic alcohol abuse. Will monitor. DVT prophylaxis: Low risk. Encouraged to ambulate. Disposition: will benefit from placement due to his weakness and frailty. PT/OT consulted. Case management on board to help facilitate placement. Now awaiting placement Charges/Coding Visit Charges Inpatient E&M: 61229 Subs Hosp L2
[2023-08-23] MEDS: LORazepam 1 MG Tablet 2 MG PO (14:52)
[2023-08-24 02:29] VITALS: BP 128/88; PULSE 79; RESP 18; TEMP 36.6; O2SAT 100
[2023-08-24] MEDS: hydrOXYzine PAM 25 MG Capsule 50 MG PO ×2 (02:33→08:21)
[2023-08-24 08:01] VITALS: BP 111/82; PULSE 88; RESP 18; TEMP 37.7; O2SAT 100
[2023-08-24] MEDS: Folic Acid 1 MG Tablet PO (08:07)
[2023-08-24] MEDS: Thiamine Hydrochloride 100 MG Tablet PO (08:07)
[2023-08-24] MEDS: Aspirin 81 MG TAB.CHEW PO (08:08)
[2023-08-24] MEDS: Multivitamins,Therapeutic Tablet 1 TABLET PO (08:08)
[2023-08-24] MEDS: Gabapentin 300 MG Capsule PO (08:21)
--- NOTE | 2023-08-24 08:21 | PN.HOSP_ITS ---
Reason for Visit Reason for Visit: Diagnoses Alcohol use, unspecified with withdrawal, unspecified (08/18/23) Subjective Subjective States that he feels like he is being present or here. Objective Data Objective Data Vital Signs: Vital Signs Temp Pulse Resp BP Pulse Ox O2 Del Method 37.7 C H 88 18 111/82 H 100 Room Air 08/24/23 08:01 08/24/23 08:01 08/24/23 08:01 08/24/23 08:01 08/24/23 08:01 08/24/23 08:01 Oxygen Delivery Method Room Air Weight: 93.894 kg Body Mass Index (BMI) 31.4 Intake & Output: Intake and Output for Last 24 Hours 08/22/23 08/23/23 08/24/23 23:59 23:59 23:59 Intake Total 400 / 400 950 / 950 400 / 400 Balance 400 / 400 950 / 950 400 / 400 Lab / Micro Data 08/18/23 12:20 08/18/23 12:20 Physical Exam Const alert and no apparent distress Constitutional Narrative: Up in chair. Nontoxic Neuro Sensorium / Orientation: awake and alert Psych affect normal Assessment & Plan Assessment/Plan (1) Alcohol withdrawal: PLAN: Completed phenobarbital taper on the . This is now his 14th admission this calendar year From my not on 07/28: * Patient continues to present wishing to have treatment for alcohol withdrawal and then invariably always goes back to drinking alcohol. It has been advised by addiction medicine for him to cut back, however I disagree completely that this patient should not drink alcohol whatsoever. I have told the patient this that he should not drink and to continue to follow-up with addiction management. I have low confidence that the patient will remain sober and will likely return to the hospital again seeking treatment. As mentioned above, this is his 13th hospitalization this calendar year at this institution. And the vast majority, if not all have been related with seeking treatment for alcohol withdrawal. It is clear that we are not actually helping him by bringing him in. * In the future, it is my recommendation that this patient not be admitted unless there is medical necessity. Patient simply requesting treatment for alcohol withdrawal should not pereira him admission unless he is going through florid alcohol withdrawal or has another medical condition that would warrant admission. Patient insist on going home and not going somewhere for additional therapy services. States that he is going to quit. Told him that given his track record, he has demonstrated that he has not been able to do this on his own. Once again, I strongly recommend he not drink any alcohol and not try to cut back his alcohol as he has not been able to do that. Recommend you do follow-up with 180. Once again, if the patient does come into the hospital seeking treatment for alcohol withdrawal, I feel that we are increasing his risk of hospital-acquired infections as he has clearly demonstrated over these past 14 admissions over the past year that he is not willing to quit at this time. Unless his status changes if he does get guardianship where we can defer to the guardian about his best medical treatment, the patient should not be admitted for alcohol withdrawal unless there is other medical necessity. PLAN: Plan Chronic conditions: * Alcohol induced cardiomyopathy: Has known EF of 55% with moderately enlarged left atrium and right atrium. On aspirin and statin as well as metoprolol. * Paroxysmal A-fib: On metoprolol and Cardizem. Not anticoagulated due to risk of falls.Depression: On Abilify and Cymbalta. * Hypertension: On metoprolol and amlodipine. * Transaminitis: Likely due to chronic alcohol abuse. DVT prophylaxis: Low risk. Encouraged to ambulate. Disposition: To home
--- NOTE | 2023-08-24 11:07 | DS.PCM_ITS ---
Providers Date of Admission: 08/18/23 Primary Care Physician: Faheem Montalvo MD Reason For Visit: detox Diagnosis Discharge Diagnosis (1) Alcohol withdrawal: Status: Acute Code(s): F10.939 - Alcohol use, unspecified with withdrawal, unspecified Plan: Completed phenobarbital taper on the . This is now his 14th admission this calendar year From my not on 07/28: * Patient continues to present wishing to have treatment for alcohol withdrawal and then invariably always goes back to drinking alcohol. It has been advised by addiction medicine for him to cut back, however I disagree completely that this patient should not drink alcohol whatsoever. I have told the patient this that he should not drink and to continue to follow-up with addiction management. I have low confidence that the patient will remain sober and will likely return to the hospital again seeking treatment. As mentioned above, this is his 13th hospitalization this calendar year at this institution. And the vast majority, if not all have been related with seeking treatment for alcohol withdrawal. It is clear that we are not actually helping him by bringing him in. * In the future, it is my recommendation that this patient not be admitted unless there is medical necessity. Patient simply requesting treatment for alcohol withdrawal should not pereira him admission unless he is going through florid alcohol withdrawal or has another medical condition that would warrant admission. Patient insist on going home and not going somewhere for additional therapy services. States that he is going to quit. Told him that given his track record, he has demonstrated that he has not been able to do this on his own. Once again, I strongly recommend he not drink any alcohol and not try to cut back his alcohol as he has not been able to do that. Recommend you do follow-up with 180. Once again, if the patient does come into the hospital seeking treatment for alcohol withdrawal, I feel that we are increasing his risk of hospital-acquired infections as he has clearly demonstrated over these past 14 admissions over the past year that he is not willing to quit at this time. Unless his status changes if he does get guardianship where we can defer to the guardian about his best medical treatment, the patient should not be admitted for alcohol withdrawal unless there is other medical necessity. Plan Chronic conditions: * Alcohol induced cardiomyopathy: Has known EF of 55% with moderately enlarged left atrium and right atrium. On aspirin and statin as well as metoprolol. * Paroxysmal A-fib: On metoprolol and Cardizem. Not anticoagulated due to risk of falls.Depression: On Abilify and Cymbalta. * Hypertension: On metoprolol and amlodipine. * Transaminitis: Likely due to chronic alcohol abuse. DVT prophylaxis: Low risk. Encouraged to ambulate. Disposition: To home Medications at Discharge Home Medications aspirin 81 mg chewable tablet 81 mg PO BREAKFAST heart health #0 tabs 05/15/23 diltiazem HCl 240 mg capsule,extended release 24 hr 240 mg PO DAILY heart #30 caps 06/06/23 metoprolol tartrate 100 mg tablet 100 mg PO BID blood pressure #60 tabs 06/06/23 multivitamin 1 tab PO DAILY SUPPLEMENT #30 tabs 07/28/23 atorvastatin 40 mg tablet 40 mg PO DAILY CHOL 08/18/23 disulfiram 250 mg tablet 250 mg PO DAILY UNKNOWN 08/18/23 naltrexone 50 mg tablet 50 mg PO Q24H SEE PCP 08/18/23 Hospital Course Operations None Procedures None Summary of Care Provided Minutes Spent on Discharge: 28 Weight / BMI Weight Weight: 93.894 kg Body Mass Index (BMI) 31.4 ABG / Lab / Microbiology Data 08/18/23 12:20 08/18/23 12:20 Meaningful Use Info Meaningful Use Diagnoses (Choose all that apply): None applicable Discharge Plan Admission Admit Date/Time: 08/18/23 14:30 Primary Reason for Your Visit: alcohol withdrawal. Attending Provider: Turner Carl Primary Care Provider: Faheem Montalvo Consulting Providers: Aurea Carlton; Tiffanie Chatman Instructions Additional Instructions / Restrictions: Do not drink alcohol. Please follow-up with [facility] for addiction services. As explained to this admission as well as previous admissions, if you come back seeking treatment for alcohol withdrawal, given your past history, you may not be admitted as you have demonstrated that you only go back to drinking alcohol again after being discharged. Discharge Orders/Prescriptions Prescriptions: Continued metoprolol tartrate 100 mg Tablet 100 mg PO BID Qty: 60 0RF diltiazem HCl 240 mg Capsule,Extended Release 24hr 240 mg PO DAILY Qty: 30 0RF multivitamin Tablet 1 tab PO DAILY Qty: 30 0RF aspirin 81 mg Tablet,Chewable 81 mg PO BREAKFAST Qty: 0 0RF atorvastatin 40 mg tablet 40 mg PO DAILY disulfiram 250 mg tablet 250 mg PO DAILY naltrexone 50 mg tablet 50 mg PO Q24H Referrals / Follow Up: Faheem Montalvo MD [Primary Care Provider] - Within 2 Weeks Disposition Disposition (needs filled in before D/C Order can be placed): Home, Self Care Charges/Coding Visit Charges Inpatient E&M: 02560 Disch Hosp
[2023-08-24 11:27] VITALS: BP 141/89; PULSE 89
[2023-08-24] MEDS: Metoprolol Tartrate 100 MG Tablet PO (11:27)
[2023-08-24] MEDS: Menthol/Lanolin/Calamine/Znox 113 GM Tube 1 APPLIC TOPICAL (11:27)
[2023-08-24] MEDS: dilTIAZem CD 240 MG Capsule PO (11:31)
--- NOTE | 2023-08-24 12:45 | CASEMGMT ---
Social Work Pt to discharge home today. Phone call to Mellissa at [facility] and referral made. SW updating that pt is returning home today and pt is not safe at home due to cognitive impairment. SW requesting [facility] consider appropriateness for guardianship. Phone call to Kenan Freeman CM and updated on discharge. PRISCILLA Yin
[2023-08-24 16:00] VITALS: BP 108/56; PULSE 81; RESP 16; TEMP 36.6; O2SAT 97
--- NOTE | 2023-08-25 08:23 | CASEMGMT ---
Social Work WALT received a message from Silvano at [facility] asking if pt did go home yesterday. WALT called her back and confirmed with her that yes pt did go home yesterday. GLADIS Carbajal
--- NOTE | 2023-08-26 15:50 | CASEMGMT ---
Social Work SW received phone call from Edilma at [facility]. Edilma visited pt today and states he was drinking and that functional he was doing ok. Edilma requesting to be notified next time pt is hospitalized and she will visit pt in the hospital. Pt's care team updated. PRISCILLA Yin
== END 2023-08-24 16:38 | disposition home or self-care (01) | DRG 897 ==
LOC: ED 12:10 → MS3 14:32
PROVIDERS: Admitting Provider Family Medicine; Emergency Provider Emergency Medicine; PCP Family Medicine
DX: F10.239 Alcohol dependence with withdrawal, unspecified (principal); I42.6 Alcoholic cardiomyopathy; K70.10 Alcoholic hepatitis without ascites; I10 Essential (primary) hypertension; F32.A Depression, unspecified; E66.9 Obesity, unspecified; I48.0 Paroxysmal atrial fibrillation; E78.5 Hyperlipidemia, unspecified; K59.00 Constipation, unspecified; Z79.82 Long term (current) use of aspirin; Z79.899 Other long term (current) drug therapy; Z87.891 Personal history of nicotine dependence; Z68.31 Body mass index [BMI] 31.0-31.9, adult
CPT/HCPCS: 36415; 80048; 80076; 80307; 82077; 83735; 84100; 85025; 97110; 97116; 97162; 97802; 99284; A4216